=== PATIENT | male | born 1955 | race Caucasian/White ===

== ENCOUNTER 2017-06-03 19:34 | Inpatient (IN) | payer OTHER ==
[~2017-06-03] VITALS: Ht 172.7 cm; Wt 97.0 kg
--- NOTE | 2017-06-03 19:54 | PD ---
HPI Chief Complaint: altered mental status Time Seen by Provider: 19:49 Travel History International Travel<30 days: No Contact w/Intl Traveler<30days: No Traveled to known affect area: No History of Present Illness HPI 61-year-old male with history of COPD, hypertension, hyperlipidemia, schizoaffective disorder, sent in by his SNF for evaluation of altered mental status. Apparently the patient has had change in his mental status since yesterday which appears to be worsening. The patient is drowsy yet easily arousable, oriented to person only. He denies any physical complaints. Says no to chest pain, head pain, abdominal pain, dyspnea. He is otherwise a poor historian. PFSH Past Medical History Arthritis: Yes Asthma: No Autoimmune Disease: No Blood Disorders: No Bipolar Disorder: Yes Anxiety: Yes Depression: Yes Heart Rhythm Problems: No Cancer: No Cardiovascular Problems: Yes High Cholesterol: Yes Chemotherapy: No Chest Pain: No Congestive Heart Failure: No Cirrhosis: Yes COPD: Yes Diabetes: No Diminished Hearing: No Endocrine: No Gastrointestinal Disorders: Yes GERD: Yes Genitourinary: No Headaches: No Hepatitis: Yes (HEP C) Hiatal Hernia: No Hypertension: Yes Immune Disorder: No Implanted Vascular Access Dvce: Yes Kidney Stones: No Musculoskeletal: Yes Neurologic: Yes Psychiatric: Yes Reproductive: No Respiratory: Yes Integumentary: Yes (SCABIES hx) Immunizations Current: Yes Migraines: No Pneumonia: Yes Radiation Therapy: No Renal Failure: Yes Seizures: Yes Sickle Cell Disease: No Sleep Apnea: No Thyroid Disease: No Ulcer: Yes Past Surgical History Abdominal Surgery: Yes AICD: No Cardiac Surgery: No Ear Surgery: No Endocrine Surgery: No Eye Surgery: No Genitourinary Surgery: No Gynecologic Surgery: No Insulin Pump: No Joint Replacement: Yes (left hip) Neurologic Surgery: No Oral Surgery: No Pacemaker: No Thoracic Surgery: Yes (PT STATED HE HAD HIS PARTIAL LUNG REMOVED ON LEFT) Other Surgery: Yes (FEEDING TUBE REMOVED) Social History Alcohol Use: Yes (12 [employer] DAILY) Tobacco Use: Yes (1PPD) Substance Use: Yes Allergies-Medications (Allergen,Severity, Reaction): Coded Allergies: hydrochlorothiazide (Unverified Allergy, Intermediate, EFFECTS HIS SODIUM LEVEL, 02/12/17) PT STATES HE IS NOT ALLERGIC codeine (Unverified Adverse Reaction, Severe, 02/12/17) PT STATES HE IS NOT ALLERGIC *MDRO Multi-Drug Resistant Organism (Verified Adverse Reaction, Unknown, ) MRSA (sputum) - 2012 & 2013 ESBL (sputum) - 2013 Carbapenem resistant Pseudomonas aeruginosa (sputum) - 2013 Reported Meds & Prescriptions Reported Meds & Active Scripts Active No Active Prescriptions or Reported Medications Review of Systems Except as stated in HPI: all other systems reviewed are Neg Physical Exam Narrative GENERAL: Well-developed, well-nourished, drowsy yet easily arousable to voice. SKIN: Focused skin assessment warm/dry. No rash. HEAD: Atraumatic. Normocephalic. EYES: Pupils equal, round, 3 mm, reactive to light. No scleral icterus. No injection or drainage. ENT: No nasal bleeding or discharge. Mucous membranes pink and dry. NECK: Trachea midline. No JVD. No nuchal rigidity. CARDIOVASCULAR: Regular rate and rhythm. No murmur appreciated. RESPIRATORY: No accessory muscle use. Coarse breath sounds bilaterally. Breath sounds equal bilaterally. GASTROINTESTINAL: Abdomen soft, non-tender, nondistended. MUSCULOSKELETAL: No obvious deformities. No clubbing. No cyanosis. No edema. NEUROLOGICAL: Drowsy yet easily arousable. No obvious cranial nerve deficits. Motor grossly within normal limits. Slightly slurred speech. No focal deficits. PSYCHIATRIC: Appropriate mood and affect; insight and judgment normal. Data Data Last Documented VS Vital Signs Date Time Temp Pulse Resp B/P (MAP) Pulse Ox O2 Delivery O2 Flow Rate FiO2 06/03/17 21:15 82 12 123/71 (88) 95 Nasal Cannula 3.00 06/03/17 20:12 97.0 Orders Orders Electrocardiogram (06/03/17 19:49) Ammonia (06/03/17 19:49) Complete Blood Count With Diff (06/03/17 19:49) Comprehensive Metabolic Panel (06/03/17 19:49) Creatine Kinase (Cpk) (06/03/17 19:49) Prothrombin Time / Inr (Pt) (06/03/17 19:49) Act Partial Throm Time (Ptt) (06/03/17 19:49) Troponin I (06/03/17 19:49) Thyroid Stimulating Hormone (06/03/17 19:49) Urinalysis - C+S If Indicated (06/03/17 19:49) Arterial Blood Gas (Abg) (06/03/17 19:49) Chest, Single Ap (06/03/17 19:49) Ct Brain W/O Iv Contrast(Rout) (06/03/17 19:49) Blood Glucose (06/03/17 19:49) Ecg Monitoring (06/03/17 19:49) Iv Access Insert/Monitor (06/03/17 19:49) Oximetry (06/03/17 19:49) Sodium Chloride 0.9% Flush (Ns Flush) (06/03/17 20:00) Alcohol (Ethanol) (06/03/17 19:49) Tylenol (Acetaminophen) (06/03/17 19:49) Salicylates (Aspirin) (06/03/17 19:49) Influenzae A/B Antigen (06/03/17 19:49) Oxygen Administration (06/03/17 19:49) Sodium Chloride 0.9% Flush (Ns Flush) (06/03/17 20:00) Methylprednisolone So Succ Inj (Solumedr (06/03/17 20:00) Albuterol-Ipratropium Neb (Duoneb Neb) (06/03/17 20:00) Insert Temp Sensing Donahue Cath (06/03/17 19:49) B-Type Natriuretic Peptide (06/03/17 19:49) Sodium Chlor 0.9% 1000 Ml Inj (Ns 1000 M (06/03/17 20:30) Blood Culture (06/03/17 21:14) Ceftriaxone Inj (Rocephin Inj) (06/03/17 21:15) Azithromycin Inj (Zithromax Inj) (06/03/17 21:15) CKMB (06/03/17 20:05) CKMB% (06/03/17 20:05) Sodium Chlor 0.9% 1000 Ml Inj (Ns 1000 M (06/03/17 21:30) Labs Laboratory Tests Test 06/03/17 20:05 White Blood Count 8.1 TH/MM3 Red Blood Count 4.43 MIL/MM3 Hemoglobin 13.4 GM/DL Hematocrit 40.4 % Mean Corpuscular Volume 91.1 FL Mean Corpuscular Hemoglobin 30.3 PG Mean Corpuscular Hemoglobin Concent 33.3 % Red Cell Distribution Width 15.0 % Platelet Count 201 TH/MM3 Mean Platelet Volume 8.1 FL Neutrophils (%) (Auto) 69.5 % Lymphocytes (%) (Auto) 17.8 % Monocytes (%) (Auto) 12.1 % Eosinophils (%) (Auto) 0.2 % Basophils (%) (Auto) 0.4 % Neutrophils # (Auto) 5.6 TH/MM3 Lymphocytes # (Auto) 1.4 TH/MM3 Monocytes # (Auto) 1.0 TH/MM3 Eosinophils # (Auto) 0.0 TH/MM3 Basophils # (Auto) 0.0 TH/MM3 CBC Comment DIFF FINAL Differential Comment Prothrombin Time 10.2 SEC Prothromb Time International Ratio 1.0 RATIO Activated Partial Thromboplast Time 30.4 SEC Urine Color YELLOW Urine Turbidity CLEAR Urine pH 5.5 Urine Specific [place] 1.024 Urine Protein 100 mg/dL Urine Glucose (UA) NEG mg/dL Urine Ketones NEG mg/dL Urine Occult Blood MOD Urine Nitrite NEG Urine Bilirubin NEG Urine Urobilinogen LESS THAN 2.0 MG/DL Urine Leukocyte Esterase NEG Urine RBC 1 /hpf Urine WBC 1 /hpf Urine Amorphous Sediment RARE Urine Mucus FEW /lpf Microscopic Urinalysis Comment CATH-CULT NOT IND Blood Gas Puncture Site RT RADIAL Blood Gas Patient Temperature 37.0 Blood Gas HCO3 21 mmol/L Blood Gas Base Excess -4.6 mmol/L Blood Gas Oxygen Saturation 95 % Arterial Blood pH 7.28 Arterial Blood Partial Pressure CO2 46 mmHg Arterial Blood Partial Pressure O2 99 mmHG Arterial Blood Oxygen Content 17.7 Vol % Arterial Blood Carboxyhemoglobin 0.8 % Arterial Blood Methemoglobin 0.7 % Blood Gas Hemoglobin 13.1 G/DL Oxygen Delivery Device NASAL CANNULA Blood Gas Liter Flow 2 L/M Blood Urea Nitrogen 50 MG/DL Creatinine 2.77 MG/DL Random Glucose 98 MG/DL Total Protein 6.7 GM/DL Albumin 2.9 GM/DL Calcium Level 7.3 MG/DL Alkaline Phosphatase 93 U/L Aspartate Amino Transf (AST/SGOT) 70 U/L Alanine Aminotransferase (ALT/SGPT) 23 U/L Total Bilirubin 0.3 MG/DL Sodium Level 137 MEQ/L Potassium Level 4.3 MEQ/L Chloride Level 106 MEQ/L Carbon Dioxide Level 22.7 MEQ/L Anion Gap 8 MEQ/L Estimat Glomerular Filtration Rate 24 ML/MIN Protein Corrected Calcium 7.5 MG/DL Ammonia 33 MCMOL/L Total Creatine Kinase 1288 U/L Troponin I LESS THAN 0.02 NG/ML Thyroid Stimulating Hormone 3rd Gen 2.220 uIU/ML Salicylates Level 2.6 MG/DL Acetaminophen Level LESS THAN 2.0 MCG/ML Ethyl Alcohol Level LESS THAN 3 MG/DL MDM Medical Decision Making Medical Screen Exam Complete: Yes Emergency Medical Condition: Yes Medical Record Reviewed: Yes Interpretation(s) EKG: Sinus, rate 77, normal axis, normal intervals, nonspecific T-wave abnormality, no ST segment elevations Differential Diagnosis Intracranial abnormality, metabolic abnormality, sepsis, pneumonia, UTI, hypercarbia Narrative Course Initial vital signs show heart rate 69, blood pressure 112/78, pulse ox 90% on room air, Court temp of 97F. CBC: WBC 8.1, hemoglobin 13.4, hematocrit 40.4, platelets 201. CMP is remarkable for BUN 50, creatinine 2.77, GFR 24 which is significantly worse than his baseline, protein cracked a calcium of 75. Total CK is 1288. Ammonia level is 33. UA shows moderate occult blood, not suggestive of UTI. Tylenol, alcohol, and salicylate levels are negative. Chest x-ray: CONCLUSION: Scattered bibasilar patchiness consistent with possible pneumonia. Clinical correlation is recommended. CT head: CONCLUSION: 1. No acute infarct, acute hemorrhage, mass effect or extra-axial fluid collections. 2. Scattered old lacunar infarcts within the bilateral basal ganglia. 3. Mild periventricular and subcortical white matter small vessel ischemic changes bilaterally. 4. Old right posterior parietal infarct. Donahue catheter was placed with 500 cc of dark brown urine. Patient was given 3 DuoNeb treatments and IV Solu-Medrol for history of COPD with hypoxia and diffuse coarse breath sounds. He was also given a dose of IV Rocephin and IV azithromycin for chest x-ray findings. Patient's mental status has improved while in the emergency department. He will be admitted for further treatment and evaluation of acute renal insufficiency, altered mental status, pneumonia. Case discussed with hospitalist Dr. Chery who will admit the patient to her service. Diagnosis Primary Impression: Acute renal insufficiency Additional Impressions: Altered mental status Qualified Codes: R41.0 - Disorientation, unspecified Pneumonia Qualified Codes: J18.9 - Pneumonia, unspecified organism Hypoxia Rhabdomyolysis Qualified Codes: M62.82 - Rhabdomyolysis Admitting Information Admitting Physician Requests: Admit Scripts No Active Prescriptions or Reported Meds Joseph Zamudio MD Jun 03, 2017:54
[2017-06-03] MEDS ORDERED: SODIUM CHLORIDE 0.9% FLUSH 10 ML FLUSH IV FLUSH PRN ×2 (20:00→21:45)
[2017-06-03] MEDS ORDERED: methylPREDNISolone SOD SUCC 125 MG/2 ML VIAL IV PUSH ONE ×2 (20:00→22:45)
[2017-06-03] MEDS ORDERED: SODIUM CHLORIDE 0.9% FLUSH 10 ML FLUSH IVF PRN (20:00)
[2017-06-03] MEDS: RESP: ALBUTEROL 2.5 MG/IPRATROPIUM 0.5 MG NEB (SCH) INH (20:06)
[2017-06-03 20:12] VITALS: BP 112/78; PULSE 69; RESP 12; TEMP 97; O2SAT 90
[2017-06-03] MEDS ORDERED: SODIUM CHLOR 0.9% 1000 ML INJ 1,000 ML IV ONE ×2 (20:30→21:30)
[2017-06-03 20:41] LABS: AUTOMATED NEUTROPHIL # 5.6 TH/MM3 (1.8-7.7); BASOPHIL % 0.4 % (0.0-2.0); EOSINOPHIL % 0.2 % (0.0-4.0); HEMATOCRIT 40.4 % (39.0-51.0); HEMOGLOBIN 13.4 GM/DL (13.0-17.0); LYMPH % 17.8 % (9.0-44.0); LYMPHOCYTE # 1.4 TH/MM3 (1.0-4.8); MEAN CELL VOLUME 91.1 FL (80.0-100.0); MEAN CORPUSCULAR HEMOGLOBIN 30.3 PG (27.0-34.0); MEAN CORPUSCULAR HGB CONC 33.3 % (32.0-36.0); MEAN PLATELET VOLUME 8.1 FL (7.0-11.0); MONO % 12.1 % (0.0-8.0); NEUT % 69.5 % (16.0-70.0); PLATELET COUNT 201 TH/MM3 (150-450); RED BLOOD COUNT 4.43 MIL/MM3 (4.50-5.90); WHITE BLOOD COUNT 8.1 TH/MM3 (4.0-11.0)
--- NOTE | 2017-06-03 20:46 | RADRPT ---
EXAM DATE/TIME: 06/03/2017 20:31 [facility] COMPARISON: CT BRAIN W/O CONTRAST, August 04, 2015, 14:53. INDICATIONS : Altered mental status. RADIATION DOSE: 47.25 CTDIvol (mGy) MEDICAL HISTORY : Stroke. Seizures. Hypertension. SURGICAL HISTORY : None. ENCOUNTER: Initial ACUITY: 1 day PAIN SCALE: 0/10 LOCATION: Bilateral head TECHNIQUE: Multiple contiguous axial images were obtained of the head. Using automated exposure control and adj ustment of the mA and/or kV according to patient size, radiation dose was kept as low as reasonably a chievable to obtain optimal diagnostic quality images. DICOM format image data is available electro nically for review and comparison. FINDINGS: Scattered old lacunar infarcts are noted within the bilateral basal ganglia. Mild periventricular and subcortical white matter small vessel ischemic changes are noted bilaterally. The ventricles, sulci and cisterns are stable. Old right posterior parietal infarct is noted. There is no acute infarct, ac [place] hemorrhage, mass effect or extra-axial fluid collections. CONCLUSION: 1. No acute infarct, acute hemorrhage, mass effect or extra-axial fluid collections. 2. Scattered old lacunar infarcts within the bilateral basal ganglia. 3. Mild periventricular and subcortical white matter small vessel ischemic changes bilaterally. 4. Old right posterior parietal infarct. Mckay Stnoe MD on June 03, 2017 at 20:41 Board Certified Radiologist. This report was verified electronically.
[2017-06-03 20:47] LABS: AMORPHOUS SEDIMENT, URINE RARE; BILIRUBIN, URINE NEG (NEG); BLOOD, URINE MOD (NEG); GLUCOSE,URINE NEG (NEG); KETONE, URINE NEG (NEG); MUCUS URINE FEW /lpf (OCC); NITRITE,URINE NEG (NEG); PH, URINE 5.5 (5.0-8.5); URINE COLOR YELLOW (YELLW/STRAW); URINE LEUKOCYTE ESTERASE NEG (NEG)
[2017-06-03 20:51] LABS: PROTHROMBIN TIME - PATIENT 10.2 SEC (9.8-11.6)
[2017-06-03 21:12] LABS: ALBUMIN 2.9 GM/DL (3.4-5.0); ALKALINE PHOSPHATASE 93 U/L (45-117); ALT (GPT) 23 U/L (12-78); AST (GOT) 70 U/L (15-37); BICARBONATE 22.7 MEQ/L (21.0-32.0); BLOOD UREA NITROGEN 50 MG/DL (7-18); CALCIUM 7.3 MG/DL (8.5-10.1); CALCIUM-PROTEIN CORRECTED 7.5 MG/DL (8.5-10.1); CHLORIDE 106 MEQ/L (98-107); CREATININE 2.77 MG/DL (0.60-1.30); GLOMERULAR FILTRATION RATE 24 ML/MIN (>89); GLUCOSE,RANDOM 98 MG/DL (74-106); SODIUM (NA) 137 MEQ/L (136-145); TOTAL BILIRUBIN ADULT 0.3 MG/DL (0.2-1.0); TOTAL PROTEIN 6.7 GM/DL (6.4-8.2); TROPONIN I LESS THAN 0.02 NG/ML (0.02-0.05)
--- NOTE | 2017-06-03 21:13 | RADRPT ---
EXAM DATE/TIME: 06/03/2017 20:21 [facility] COMPARISON: CHEST SINGLE AP, August 04, 2015, 15:11. INDICATIONS : Syncope. MEDICAL HISTORY : Stroke. Seizures. Hypertension. SURGICAL HISTORY : None. ENCOUNTER: Initial ACUITY: 1 day PAIN SCORE: Non-responsive. LOCATION: Bilateral chest FINDINGS: Scattered bibasilar patchiness is noted consistent with possible pneumonia. Clinical correlation is r ecommended. The heart is stable. CONCLUSION: Scattered bibasilar patchiness consistent with possible pneumonia. Clinical correlation is recommende d. Mckay Stone MD on June 03, 2017 at 21:10 Board Certified Radiologist. This report was verified electronically.
[2017-06-03 21:15] VITALS: BP 123/71; PULSE 82; RESP 12; O2SAT 95
[2017-06-03] MEDS ORDERED: AZITHROMYCIN INJ 500 MG in SODIUM CHLOR 0.9% 250 ML INJ 250 ML IV ONE (21:15)
[2017-06-03] MEDS ORDERED: cefTRIAXone INJ 1,000 MG in SODIUM CHLORIDE 0.9% INJ 100 ML IV ONE (21:15)
[2017-06-03 21:18] LABS: ACETAMINOPHEN LESS THAN 2.0 MCG/ML (10.0-30.0)
[2017-06-03] MEDS ORDERED: RISP1TAB2 PO (21:43)
[2017-06-03] MEDS ORDERED: DONE5TAB7 PO (21:43)
[2017-06-03] MEDS ORDERED: LISI-515 PO (21:43)
[2017-06-03] MEDS ORDERED: MELO15TA20 PO (21:43)
[2017-06-03] MEDS ORDERED: TRAZ1TAB14 PO (21:43)
[2017-06-03] MEDS ORDERED: ALBUAER3 INH (21:43)
[2017-06-03] MEDS ORDERED: TAMS0.4C4 PO (21:43)
[2017-06-03] MEDS ORDERED: GABA300C5 PO (21:43)
[2017-06-03] MEDS ORDERED: BENZ0.5T PO (21:43)
[2017-06-03] MEDS ORDERED: VENL150T PO (21:43)
[2017-06-03] MEDS ORDERED: ATOR40TA16 PO (21:43)
[2017-06-03] MEDS ORDERED: TRAM50TA PO (21:43)
[2017-06-03] MEDS ORDERED: NALOXONE HCL 0.4 MG/ML AMP IV PUSH PRN (21:45)
[2017-06-03] MEDS: SODIUM CHLOR 0.9% 1000 ML INJ 1,000 ML IV SCH (21:55)
[2017-06-03 22:40] VITALS: O2SAT 99
--- NOTE | 2017-06-03 22:50 | HHI.HP ---
[facility] Service [facility] Hospitalists . Primary Care Physician Unknown . Admission Diagnosis AMS, ROSENDO, Pneumonia, Rhabdomyolysis, Hypoxia . Diagnoses: (1) Acute hypercapnic respiratory failure (2) Pneumonia (3) Altered mental status (4) Rhabdomyolysis Chief Complaint: altered mental status Travel History International Travel<30 Days: No Contact w/Intl Traveler <30 Da: No Traveled to Known Affected Are: No History of Present Illness Mr. Reilly is a 61-year-old male with a history of COPD, hypertension, hyperlipidemia, CVA, schizoaffective disorder, bipolar disorder, GERD, renal failure, and arthritis who presents to the emergency room on 06/03/2017 from a nursing home facility for evaluation of altered mental status. Upon review of the medical records from the nursing home facility, it is noted he had a right lower lobe pneumonia diagnosed mid May. Head CT showed no acute infarct, acute hemorrhage, mass effect, or extra-axial fluid collection but scattered old lacunar infarcts within the bilateral basal ganglia. Mild periventricular and subcortical white matter small vessel ischemic changes bilaterally. Chest x-ray shows scattered bibasilar patchiness consistent with possible pneumonia. Patient is seen in the emergency department. He is in moderate respiratory distress with tachypnea and utilization of accessory abdominal muscles to breathe. His lung sounds are bilaterally congested and he is confused and a poor historian. His speech is slightly slurred but this is not a new finding. He tells me he does not know why he is here in the hospital. He tells me that he feels fine and has not been sick recently. He is noted to be on 5 L nasal cannula with oxygen saturation of 94% while on at the bedside. ABGs are reviewed and show pH 7.28, and PCO2 of 46. These were done at 2004 while the patient is on 2 L nasal cannula. Discussed with Dr. Mckeon. Will admit to ICU for close monitoring and supervision. Review of Systems ROS Limitations: Altered Mental Status, Poor Historian Past Family Social History Past Medical History Patient is a poor historian with altered mental status and the following is obtained from the medical record: COPD Hypertension Hyperlipidemia CVA Schizoaffective disorder Bipolar disorder GERD Acute renal failure Arthritis Alcohol withdrawal seizures . Past Surgical History Patient is a poor historian with altered mental status and the following is obtained from the medical record: Left partial pneumonectomy Left hip surgery Reported Medications Reported Meds & Active Scripts Active Reported Proair Hfa 8.5 GM Inh (Albuterol Sulfate) 90 Mcg/Act Aer 1 Puff INH Q4H PRN 108 mcg/actuation Venlafaxine ER 24 HR (Venlafaxine HCl) 150 Mg Tab 150 Mg PO DAILY Trazodone (Trazodone HCl) 150 Mg Tablet 150 Mg PO HS Tramadol (Tramadol HCl) 50 Mg Tab 50 Mg PO Q6H PRN Tamsulosin (Tamsulosin HCl) 0.4 Mg Cap 0.4 Mg PO HS Risperidone 1 Mg Tab 1 Mg PO HS Meloxicam 15 Mg Tab 15 Mg PO DAILY Lisinopril 20 Mg Tab 20 Mg PO DAILY Gabapentin 300 Mg Cap 300 Mg PO TID Donepezil 5 Mg Tab 5 Mg PO HS Benztropine (Benztropine Mesylate) 0.5 Mg Tab 1 Mg PO HS Atorvastatin (Atorvastatin Calcium) 40 Mg Tab 40 Mg PO HS . Allergies: Coded Allergies: hydrochlorothiazide (Unverified Allergy, Intermediate, EFFECTS HIS SODIUM LEVEL, 02/12/17) PT STATES HE IS NOT ALLERGIC codeine (Unverified Adverse Reaction, Severe, 02/12/17) PT STATES HE IS NOT ALLERGIC Active Ordered Medications Current Medications Sodium Chloride (NS Flush) 2 ml UNSCH PRN IV FLUSH FLUSH AFTER USING IV ACCESS ; Start 06/03/17 at 20:00; Stop 06/03/17 at 21:55; Status DC Sodium Chloride (NS Flush) 2 ml UNSCH PRN IVF FLUSH AFTER USING IV ACCESS; Start 06/03/17 at 20:00; Stop 06/03/17 at 21:55; Status DC Methylprednisolone Sodium Succinate (SoluMEDROL INJ) 125 mg ONCE ONCE IV PUSH Last administered on 06/03/17 20:21; Start 06/03/17 at 20:00; Stop 06/03/17 at 20:01; Status DC Albuterol/ Ipratropium (Duoneb Neb) 1 ampule Q15M INH Last administered on 06/03 20:06; Start 06/03/17 at 20:00; Stop 06/03/17 at 20:31; Status DC Sodium Chloride 1,000 ml @ 999 mls/hr BOLUS ONCE IV Last administered on 06/03 20:21; Start 06/03/17 at 20:30; Stop 06/03/17 at 21:30; Status DC Ceftriaxone Sodium 1000 mg/ Sodium Chloride 100 ml @ 200 mls/hr ONCE ONCE IV Last administered on 06/03/17 21:35; Start 06/03/17 at 21:15; Stop 06/03/17 at 21:45; Status DC Azithromycin 500 mg/Sodium Chloride 250 ml @ 250 mls/hr ONCE ONCE IV Last administered on 06/03/17 21:35; Start 06/03/17 at 21:15; Stop 06/03/17 at 22:14 ; Status DC Sodium Chloride 1,000 ml @ 999 mls/hr BOLUS ONCE IV Last administered on 06/03 21:36; Start 06/03/17 at 21:30; Stop 06/03/17 at 22:30; Status DC Sodium Chloride 1,000 ml @ 100 mls/hr Q10H IV Last administered on 06/03/17 21:55; Start 06/03/17 at 21:39 Sodium Chloride (NS Flush) 2 ml UNSCH PRN IV FLUSH FLUSH AFTER USING IV ACCESS ; Start 06/03/17 at 21:45 Sodium Chloride (NS Flush) 2 ml BID IV FLUSH ; Start 06/04/17 at 09:00 Naloxone HCl (Narcan Inj) 0.4 mg UNSCH PRN IV PUSH SEE LABEL COMMENTS; Start 06/03/17 at 21:45 Methylprednisolone Sodium Succinate (SoluMEDROL INJ) 125 mg ONCE ONCE IV PUSH ; Start 06/03/17 at 22:45; Stop 06/03/17 at 22:48; Status DC Methylprednisolone Sodium Succinate (SoluMEDROL INJ) 40 mg Q8HR IV PUSH ; Start 06/04/17 at 06:00 Famotidine (Pepcid) 10 mg Q12HR PO ; Start 06/04/17 at 09:00 Levofloxacin/ Dextrose 150 ml @ 100 mls/hr Q24H IV ; Start 06/03/17 at 22:45; Status UNV Albuterol/ Ipratropium (Duoneb Neb) 1 ampule Q6HR NEB NEB ; Start 06/04/17 at 04:00 Albuterol/ Ipratropium (Duoneb Neb) 1 ampule Q2HR NEB PRN NEB wheezing; Start 06/03/17 at 22:45 Atorvastatin Calcium (Lipitor) 40 mg HS PO ; Start 06/04/17 at 21:00; Status UNV Benztropine Mesylate (Cogentin) 1 mg HS PO ; Start 06/04/17 at 21:00; Status UNV Donepezil HCl (Aricept) 5 mg HS PO ; Start 06/04/17 at 21:00; Status UNV Risperidone (risperDAL) 1 mg HS PO ; Start 06/04/17 at 21:00; Status UNV Tamsulosin HCl (Flomax) 0.4 mg HS PO ; Start 06/04/17 at 21:00; Status UNV Venlafaxine HCl (Effexor Xr) 150 mg DAILY PO ; Start 06/04/17 at 09:00; Status UNV . Family History Patient is a poor historian with altered mental status and the following is unable to be obtained . Social History Patient is a poor historian with altered mental status and the following is obtained from the medical record: Tobacco: History of tobacco abuse for many years Alcohol: History of alcohol abuse . Physical Exam Vital Signs Vital Signs Date Time Temp Pulse Resp B/P (MAP) Pulse Ox O2 Delivery O2 Flow Rate FiO2 06/03/17 21:15 82 12 123/71 (88) 95 Nasal Cannula 3.00 06/03/17 20:15 98 Aerosol Mask 06/03/17 20:15 75 12 96 Nasal Cannula 3.00 06/03/17 20:12 97.0 69 12 112/78 (89) 90 Physical Exam GENERAL: This is a chronically ill-appearing male, in moderate respiratory distress. SKIN: Cool and dry, pati complexion. HEAD: Atraumatic. Normocephalic. EYES: No scleral icterus. No injection or drainage. ENT: Nose without bleeding, purulent drainage. Uvula midline. Airway patent. NECK: Trachea midline. No JVD. CARDIOVASCULAR: Regular rate and rhythm without murmurs, gallops, or rubs. RESPIRATORY: Tachypneic, utilization of abdominal muscles to breathe, diffuse moist rhonchi throughout lung martinez. GASTROINTESTINAL: Abdomen soft, non-tender, nondistended. No guarding. MUSCULOSKELETAL: Extremities without clubbing, cyanosis, or edema. NEUROLOGICAL: Awake but drowsy. Equal strength, follows commands, no tongue deviation. Somewhat slurred speech. . Laboratory Laboratory Tests Test 06/03/17 20:05 White Blood Count 8.1 Red Blood Count 4.43 Hemoglobin 13.4 Hematocrit 40.4 Mean Corpuscular Volume 91.1 Mean Corpuscular Hemoglobin 30.3 Mean Corpuscular Hemoglobin Concent 33.3 Red Cell Distribution Width 15.0 Platelet Count 201 Mean Platelet Volume 8.1 Neutrophils (%) (Auto) 69.5 Lymphocytes (%) (Auto) 17.8 Monocytes (%) (Auto) 12.1 Eosinophils (%) (Auto) 0.2 Basophils (%) (Auto) 0.4 Neutrophils # (Auto) 5.6 Lymphocytes # (Auto) 1.4 Monocytes # (Auto) 1.0 Eosinophils # (Auto) 0.0 Basophils # (Auto) 0.0 CBC Comment DIFF FINAL Differential Comment Prothrombin Time 10.2 Prothromb Time International Ratio 1.0 Activated Partial Thromboplast Time 30.4 Urine Color YELLOW Urine Turbidity CLEAR Urine pH 5.5 Urine Specific Peetz 1.024 Urine Protein 100 Urine Glucose (UA) NEG Urine Ketones NEG Urine Occult Blood MOD Urine Nitrite NEG Urine Bilirubin NEG Urine Urobilinogen LESS THAN 2.0 Urine Leukocyte Esterase NEG Urine RBC 1 Urine WBC 1 Urine Amorphous Sediment RARE Urine Mucus FEW Microscopic Urinalysis Comment CATH-CULT NOT IND Blood Gas Puncture Site RT RADIAL Blood Gas Patient Temperature 37.0 Blood Gas HCO3 21 Blood Gas Base Excess -4.6 Blood Gas Oxygen Saturation 95 Arterial Blood pH 7.28 Arterial Blood Partial Pressure CO2 46 Arterial Blood Partial Pressure O2 99 Arterial Blood Oxygen Content 17.7 Arterial Blood Carboxyhemoglobin 0.8 Arterial Blood Methemoglobin 0.7 Blood Gas Hemoglobin 13.1 Oxygen Delivery Device NASAL CANNULA Blood Gas Liter Flow 2 Blood Urea Nitrogen 50 Creatinine 2.77 Random Glucose 98 Total Protein 6.7 Albumin 2.9 Calcium Level 7.3 Alkaline Phosphatase 93 Aspartate Amino Transf (AST/SGOT) 70 Alanine Aminotransferase (ALT/SGPT) 23 Total Bilirubin 0.3 Sodium Level 137 Potassium Level 4.3 Chloride Level 106 Carbon Dioxide Level 22.7 Anion Gap 8 Estimat Glomerular Filtration Rate 24 Protein Corrected Calcium 7.5 Ammonia 33 Total Creatine Kinase 1288 Creatine Kinase MB 23.7 Creatine Kinase MB % 1.8 Troponin I LESS THAN 0.02 B-Type Natriuretic Peptide 15 Thyroid Stimulating Hormone 3rd Gen 2.220 Salicylates Level 2.6 Acetaminophen Level LESS THAN 2.0 Ethyl Alcohol Level LESS THAN 3 Date/Time Source Procedure Growth Status 06/03/17 21:18 Blood Peripheral Aerobic Blood Culture Pending Received 06/03/17 21:18 Blood Peripheral Anaerobic Blood Culture Pending Received 06/03/17 20:05 Nasal Washing Influenza Types A,B Antigen (KIEL) - Final NEGATIVE FOR FLU A AND B ANTIGEN.... Complete Result Diagram: 06/03/17200406/03/172004 Imaging Last Impressions Head CT 06/03/171948 Signed Impressions: Service Date/Time: Saturday, June 03, 2017 20:31 - CONCLUSION: 1. No acute infarct, acute hemorrhage, mass effect or extra-axial fluid collections. 2. Scattered old lacunar infarcts within the bilateral basal ganglia. 3. Mild periventricular and subcortical white matter small vessel ischemic changes bilaterally. 4. Old right posterior parietal infarct. Mckay Stone MD Chest X-Ray 06/03/171948 Signed Impressions: Service Date/Time: Saturday, June 03, 2017 20:21 - CONCLUSION: Scattered bibasilar patchiness consistent with possible pneumonia. Clinical correlation is recommended. Mckay Stone MD . Caprini VTE Risk Assessment Caprini VTE Risk Assessment: Mod/High Risk (score >= 2) Caprini Risk Assessment Model Point Value = 1 Point Value = 2 Point Value = 3 Point Value = 5 Age 41-60 Minor surgery BMI > 25 kg/m2 Swollen legs Varicose veins or History of unexplained or recurrent spontaneous Oral contraceptives or hormone replacement Sepsis (< 1 month) Serious lung disease, including pneumonia (< 1 month) Abnormal pulmonary function Acute myocardial infarction Congestive heart failure (< 1 month) History of inflammatory bowel disease Medical patient at bed rest Age 61-74 Arthroscopic surgery Major open surgery (> 45 min) Laparoscopic surgery (> 45 min) Malignancy Confined to bed (> 72 hours) Immobilizing plaster cast Central venous access Age >= 75 History of VTE Family history of VTE Factor V Leiden Prothrombin [id number] Lupus anticoagulant Anticardiolipin antibodies Elevated serum homocysteine Heparin-induced thrombocytopenia Other congenital or acquired thrombophilia Stroke (< 1 month) Elective arthroplasty Hip, pelvis, or leg fracture Acute spinal cord injury (< 1 month) Prophylaxis Regimen Total Risk Factor Score Risk Level Prophylaxis Regimen 0-1 Low Early ambulation 2 Moderate Order ONE of the following: *Sequential Compression Device (SCD) *Heparin 5000 units SQ BID 3-4 Higher Order ONE of the following medications: *Heparin 5000 units SQ TID *Enoxaparin/Lovenox 40 mg SQ daily (WT < 150 kg, CrCl > 30 mL/min) *Enoxaparin/Lovenox 30 mg SQ daily (WT < 150 kg, CrCl > 10-29 mL/min) *Enoxaparin/Lovenox 30 mg SQ BID (WT < 150 kg, CrCl > 30 mL/min) AND/OR *Sequential Compression Device (SCD) 5 or more Highest Order ONE of the following medications: *Heparin 5000 units SQ TID (Preferred with Epidurals) *Enoxaparin/Lovenox 40 mg SQ daily (WT < 150 kg, CrCl > 30 mL/min) *Enoxaparin/Lovenox 30 mg SQ daily (WT < 150 kg, CrCl > 10-29 mL/min) *Enoxaparin/Lovenox 30 mg SQ BID (WT < 150 kg, CrCl > 30 mL/min) AND *Sequential Compression Device (SCD) Assessment and Plan Problem List: (1) Pneumonia ICD Code: J18.9 - Pneumonia, unspecified organism Status: Acute (2) Acute hypercapnic respiratory failure ICD Code: J96.02 - Acute respiratory failure with hypercapnia Status: Acute (3) Altered mental status ICD Code: R41.82 - Altered mental status, unspecified Status: Acute (4) Hypoxia ICD Code: R09.02 - Hypoxemia Status: Acute (5) Rhabdomyolysis ICD Code: M62.82 - Rhabdomyolysis Status: Acute (6) Acute renal failure ICD Code: N17.9 - Acute kidney failure, unspecified Assessment and Plan Mr. Reilly is a 61-year-old male with a history of COPD, hypertension, hyperlipidemia, CVA, schizoaffective disorder, bipolar disorder, GERD, renal failure, and arthritis who presents to the emergency room on 06/03/2017 from a nursing home facility for evaluation of altered mental status. Upon review of the medical records from the nursing home facility, it is noted he had a right lower lobe pneumonia diagnosed mid May. Head CT showed no acute infarct, acute hemorrhage, mass effect, or extra-axial fluid collection but scattered old lacunar infarcts within the bilateral basal ganglia. Mild periventricular and subcortical white matter small vessel ischemic changes bilaterally. Chest x-ray shows scattered bibasilar patchiness consistent with possible pneumonia. He is also found to have rhabdomyolysis with acute renal failure. Acute hypercapnic respiratory failure with bilateral pneumonia - Chest x-ray with scattered bibasilar patchiness consistent with pneumonia - image personally reviewed. - ABGs done on admission show pH of 7.28 and PCO2 45.9; BNP 15 - Patient appears in moderate respiratory distress during visit on supplemental oxygen at 5 L via nasal cannula - Start BiPAP 12/11/34 - Levaquin 750 mg IV every 24 hours - Duo nebulizers every 6 hours and every 2 hours as needed for wheezing - Solu-Medrol 125 mg IV push followed by 40 mg IV every 8 hours - Continuous cardiac telemetry to monitor for arrhythmias - We'll repeat ABGs - Admit to ICU for close monitoring as patient is at high risk for clinical deterioration Acute renal failure - BUN 50, creatinine 2.77, EGFR 24 - significantly worse than prior visits - on 12/04/15, the patient's BUN was 22, creatinine 0.74, EGFR was 108 - Patient has received fluid boluses x 2 liters in ED and is currently on normal saline at 100 cc per hour - Home Lisinopril and meloxicam held - Repeat labs in a.m. and follow trends - Avoid nephrotoxins - Consider nephrology consultation if no improvement Rhabdomyolysis - TCK 1288 on admission - IV fluid hydration provided as above - Recheck CK in a.m. and follow results - trend Altered mental status likely multi-factorial secondary to respiratory failure and renal failure - Hold sedating medications for now: Tramadol, gabapentin, trazodone, risperidone - Head CT with no acute infarct, acute hemorrhage, mass effect, or extra-axial fluid collections. Scattered old lacunar infarcts within bilateral basal ganglia. Mild periventricular and subcortical white matter small vessel ischemic changes bilaterally. All the right posterior parietal infarct. - UA not consistent with UTI; ammonia mildly elevated at 33; TSH normal at 2.20 - Negative toxicology as follows: EtOH less than 3, acetaminophen less than 2.0 , salicylates 2.6 DVT prophylaxis - Heparin 5000 subcutaneous every 8 hours Attending Note Patient seen and examined. Note above from mid level reviewed. Agree with assessment. 61 years old halfway patient who was found to be hypoxic with O2 sat of 90 % on room air, acute renal failure, rhabdomyolysis with CPK of 1200s. Patient is not able to give any proper history. He was placed on BiPAP. His BNP is normal. His latest echo in 2012 is reviewed. Preserved systolic function and diastolic function her report. Patient on lung exam shows significant expiratory wheezing but very tight air entry. Further rounds of nebulizer treatments to be given. Steroids 125 mg IV second dose to be given now and to continue at 40 mL IV every 6 hours. GI prophylaxis while on steroids. Patient also received Rocephin and azithromycin in ER for treatment of pneumonia. Will start on levofloxacin renal adjusted dose as patient is a halfway patient. Follow blood culture results. As to his rhabdomyolysis, patient tells me that he did fall down. However he is not able to elaborate further. No significant pain or localization of pain. Continue further IV hydration. Suspect that his renal function will improve with hydration. If not, consider bicarbonate drip/nephrology consult/renal ultrasound. Due to the fact that patient has significant work of breathing, hypoxia, question whether this could be PE in a morbidly obese NH pt. start pt on heparin drip for now imaging studies once pt is hemodynamically stable admit pt to icu for close monitoring Discussed Condition With ER physician and RN . Physician Certification 2 Midnight Certification Type: Admission for Inpatient Services Order for Inpatient Services The services are ordered in accordance with Medicare regulations or non- Medicare payer requirements, as applicable. In the case of services not specified as inpatient-only, they are appropriately provided as inpatient services in accordance with the 2-midnight benchmark. Estimated LOS (days): 5 days is the estimated time the patient will need to remain in the hospital, assuming treatment plan goals are met and no additional complications. Post-Hospital Plan: SNF Problem Qualifiers (1) Pneumonia: Qualified Codes: J18.9 - Pneumonia, unspecified organism (2) Altered mental status: Qualified Codes: R41.0 - Disorientation, unspecified (3) Rhabdomyolysis: Qualified Codes: M62.82 - Rhabdomyolysis (4) Acute renal failure: Qualified Codes: N17.9 - Acute kidney failure, unspecified Soheila Camacho Jun 03, 2017 22:50 Annette Chery MD Jun 03, 2017 23:57
[2017-06-03] MEDS ORDERED: HEPARIN SODIUM - SQ 10,000 UNITS/ML VIAL SQ SCH (23:00)
[2017-06-03] MEDS ORDERED: LEVOFLOXACIN 750 MG PREMIX INJ 150 ML IV SCH (23:00)
[2017-06-03] MEDS ORDERED: HEPARIN-D5W 25,000 U/250 ML 250 ML IV PRN (23:30)
[2017-06-03] MEDS ORDERED: HEPARIN SODIUM - IV 10,000 UNITS/10 ML VIAL IV PUSH ONE (23:30)
[2017-06-03] MEDS: RESP: ALBUTEROL 2.5 MG/IPRATROPIUM 0.5 MG NEB (PRN) NEB (23:42)
[2017-06-03] MEDS ORDERED: CALCIUM GLUCONATE INJ 2 GM in DEXTROSE 5% IN WATER 100ML INJ 100 ML IV ONE ×2 (23:45)
[2017-06-03 23:59] VITALS: BP 140/71; PULSE 91; RESP 25; TEMP 97.2; O2SAT 96
[2017-06-04] VITALS (21 sets, daily range): BP systolic 98–214; BP diastolic 58–142; PULSE 52–125; RESP 16–39; TEMP 97.5–97.9; O2SAT 90–100
[2017-06-04] MEDS: RESP: ALBUTEROL 2.5 MG/IPRATROPIUM 0.5 MG NEB (SCH) NEB ×4 (02:32→21:00)
[2017-06-04] MEDS ORDERED: MISCELLANEOUS NURSING INFORMATION XX SCH (03:45)
[2017-06-04] MEDS ORDERED: CHLORHEXIDINE GLUCONATE 2 % 1 PACK (2 CLOTHS) TOP PRN (03:45)
[2017-06-04] MEDS: methylPREDNISolone SOD SUCC 40 MG/1 ML VIAL IV PUSH SCH ×3 (05:10→22:20)
[2017-06-04] MEDS ORDERED: HEPARIN SODIUM - IV 10,000 UNITS/10 ML VIAL IV PUSH PRN ×2 (05:30)
[2017-06-04] MEDS ORDERED: ENALAPRILAT 2.5 MG/2 ML VIAL IV PUSH PRN (07:00)
[2017-06-04] MEDS ORDERED: methylPREDNISolone SOD SUCC 125 MG/2 ML VIAL IV PUSH ONE (07:00)
[2017-06-04] MEDS: VENLAFAXINE HCL XR 75 MG CAP PO SCH (07:48)
[2017-06-04] MEDS: FAMOTIDINE 20 MG TAB PO SCH ×2 (07:48→22:20)
[2017-06-04] MEDS: SODIUM CHLORIDE 0.9% FLUSH 10 ML FLUSH IV FLUSH SCH ×3 (07:48→22:20)
[2017-06-04] MEDS: SODIUM CHLOR 0.9% 1000 ML INJ 1,000 ML IV SCH ×2 (07:49→17:28)
[2017-06-04 08:42] LABS: AUTOMATED NEUTROPHIL # 6.7 TH/MM3 (1.8-7.7); BASOPHIL % 0.3 % (0.0-2.0); HEMATOCRIT 44.3 % (39.0-51.0); HEMOGLOBIN 14.4 GM/DL (13.0-17.0); LYMPHOCYTE # 0.8 TH/MM3 (1.0-4.8); MEAN CELL VOLUME 90.8 FL (80.0-100.0); MEAN CORPUSCULAR HEMOGLOBIN 29.5 PG (27.0-34.0); MEAN CORPUSCULAR HGB CONC 32.5 % (32.0-36.0); MEAN PLATELET VOLUME 7.8 FL (7.0-11.0); MONO % 1.2 % (0.0-8.0); MONOCYTE # 0.1 TH/MM3 (0-0.9); NEUT % 87.5 % (16.0-70.0); PLATELET COUNT 213 TH/MM3 (150-450); RED BLOOD COUNT 4.88 MIL/MM3 (4.50-5.90); RED CELL DISTRIBUTION WIDTH 14.9 % (11.6-17.2); WHITE BLOOD COUNT 7.6 TH/MM3 (4.0-11.0)
[2017-06-04 09:35] LABS: BICARBONATE 22.3 MEQ/L (21.0-32.0); CALCIUM 8.4 MG/DL (8.5-10.1); CREATININE 1.51 MG/DL (0.60-1.30)
[2017-06-04] MEDS: amLODIPine BESYLATE 5 MG TAB PO SCH (11:56)
[2017-06-04] MEDS ORDERED: cloNIDine HCL 0.1 MG TAB PO PRN (12:00)
--- NOTE | 2017-06-04 13:00 | HHI.PR ---
Subjective Remarks The patient said that he is short of breath. He still smokes up to a pack of cigarettes a day. He says he has no intention of quitting smoking. He says that he generally uses oxygen at night at the half-way. Discussed with nursing at the bedside. Objective Vitals Vital Signs Date Time Temp Pulse Resp B/P (MAP) Pulse Ox O2 Delivery O2 Flow Rate FiO2 06/04/17 12:00 98.8 71 30 214/98 (136) 97 06/04/17 12:00 71 06/04/17 10:00 73 06/04/17 08:28 92 Nasal Cannula 4.00 06/04/17 08:00 83 06/04/17 08:00 100 Bi-Pap 30 06/04/17 08:00 97.5 80 31 184/142 (156) 90 06/04/17 07:22 97 30 06/04/17 06:00 52 06/04/17 04:00 97.9 66 37 199/91 (127) 98 06/04/17 04:00 66 06/04/17 03:35 99 25 06/04/17 03:01 76 06/04/17 02:27 97.8 74 30 186/92 (123) 97 06/04/17 02:10 06/04/17 01:45 98 2.00 06/04/17 01:45 98 Nasal Cannula 2.00 06/04/17 01:24 96 25 06/03/17 23:59 97.2 91 25 140/71 (94) 96 BiPAP 25 06/03/17 22:40 99 25 06/03/17 21:15 82 12 123/71 (88) 95 Nasal Cannula 3.00 06/03/17 21:15 95 Nasal Cannula 3.00 06/03/17 20:15 98 Aerosol Mask 06/03/17 20:15 75 12 96 Nasal Cannula 3.00 06/03/17 20:12 97.0 69 12 112/78 (89) 90 I/O 06/03/17 06/03/17 06/03/17 06/04/17 06/04/17 06/04/17 07:00 15:00 23:00 07:00 15:00 23:00 Intake Total 2350 ml 270 ml 1090 ml Output Total 3025 ml Balance 2350 ml -2755 ml 1090 ml Intake IV Total 2350 ml 270 ml 1090 ml Output Urine Total 3025 ml Stool Total 0 ml # Voids 1 Result Diagram: 06/04/17 0821 06/04/1721 Imaging Last Impressions Head CT 06/03/171948 Signed Impressions: Service Date/Time: Saturday, June 03, 2017 20:31 - CONCLUSION: 1. No acute infarct, acute hemorrhage, mass effect or extra-axial fluid collections. 2. Scattered old lacunar infarcts within the bilateral basal ganglia. 3. Mild periventricular and subcortical white matter small vessel ischemic changes bilaterally. 4. Old right posterior parietal infarct. Mckay Stone MD Chest X-Ray 06/03/171948 Signed Impressions: Service Date/Time: Saturday, June 03, 2017 20:21 - CONCLUSION: Scattered bibasilar patchiness consistent with possible pneumonia. Clinical correlation is recommended. Mckay Stone MD Objective Remarks GENERAL: Resting comfortably in bed. SKIN: Cool and dry, pati complexion. HEAD: Atraumatic. Normocephalic. EYES: No scleral icterus. No injection or drainage. ENT: Nose without bleeding, purulent drainage. Uvula midline. Airway patent. NECK: Trachea midline. No JVD. CARDIOVASCULAR: Regular rate and rhythm without murmurs, gallops, or rubs. RESPIRATORY: Poor air exchange. GASTROINTESTINAL: Abdomen soft, non-tender, nondistended. No guarding. MUSCULOSKELETAL: Extremities without clubbing, cyanosis, or edema. NEUROLOGICAL: Awake and alert. Equal strength, follows commands, no tongue deviation. PSYCH: Calm. Medications and IVs Current Medications Medications (Trade) Dose Ordered Sig/Solange Route Start Time Stop Time Status Last Admin Sodium Chloride 1,000 ml @ 100 mls/hr Q10H IV 06/03/17 21:39 06/04/17 07:49 (NS Flush) 2 ml UNSCH PRN IV FLUSH 06/03/17 21:45 06/04/17 07:49 (NS Flush) 2 ml BID IV FLUSH 06/04/17 09:00 06/04/17 07:48 (Narcan Inj) 0.4 mg UNSCH PRN IV PUSH 06/03/17 21:45 (SoluMEDROL INJ) 40 mg Q8HR IV PUSH 06/04/17 06:00 06/04/17 05:10 (Pepcid) 10 mg Q12HR PO 06/04/17 09:00 06/04/17 07:48 Levofloxacin/ Dextrose 150 ml @ 100 mls/hr Q48H IV 06/03/17 23:00 06/03/17 23:40 (Duoneb Neb) 1 ampule Q6HR NEB NEB 06/04/17 04:00 06/04/17 07:26 (Duoneb Neb) 1 ampule Q2HR NEB PRN NEB 06/03/17 22:45 06/03/17 23:42 (Lipitor) 40 mg HS PO 06/04/17 21:00 (Cogentin) 1 mg HS PO 06/04/17 21:00 (Aricept) 5 mg HS PO 06/04/17 21:00 (risperDAL) 1 mg HS PO 06/04/17 21:00 Future Hold (Flomax) 0.4 mg HS PO 06/04/17 21:00 (Effexor Xr) 150 mg DAILY PO 06/04/17 09:00 06/04/17 07:48 (Heparin Inj) 5,000 units UNSCH PRN IV PUSH 06/04/17 05:30 (Heparin Inj) 2,500 units UNSCH PRN IV PUSH 06/04/17 05:30 Heparin Sodium/ Dextrose 250 ml @ 10 mls/hr TITRATE PRN IV 06/03/17 23:30 06/03/17 23:55 Miscellaneous Information 1 Q361D XX 06/04/17 03:45 (Chlorhexidine 2% Cloth) 3 pack Taper DAILY@04 TOP 06/04/17 04:00 05/31/18 03:59 (Chlorhexidine 2% Cloth) 3 pack UNSCH PRN TOP 06/04/17 03:45 (Vasotec Inj) 2.5 mg Q6H PRN IV PUSH 06/04/17 07:00 06/04/17 07:48 (Norvasc) 5 mg DAILY PO 06/04/17 12:00 06/04/17 11:56 (Catapres) 0.1 mg Q6H PRN PO 06/04/17 12:00 A/P Problem List: (1) Pneumonia ICD Code: J18.9 - Pneumonia, unspecified organism Status: Acute (2) Acute hypercapnic respiratory failure ICD Code: J96.02 - Acute respiratory failure with hypercapnia (3) Altered mental status ICD Code: R41.82 - Altered mental status, unspecified Status: Acute (4) Hypoxia ICD Code: R09.02 - Hypoxemia Status: Acute (5) Rhabdomyolysis ICD Code: M62.82 - Rhabdomyolysis Status: Acute (6) Acute renal failure ICD Code: N17.9 - Acute kidney failure, unspecified Assessment and Plan Mr. Reilly is a 61-year-old male with a history of COPD, hypertension, hyperlipidemia, CVA, schizoaffective disorder, bipolar disorder, GERD, renal failure, and arthritis who presents to the emergency room on 06/03/2017 from a [facility] for evaluation of altered mental status. Upon review of the medical records from the [facility] facility, it is noted he had a right lower lobe pneumonia diagnosed mid May. Head CT showed no acute infarct, acute hemorrhage, mass effect, or extra-axial fluid collection but scattered old lacunar infarcts within the bilateral basal ganglia. Mild periventricular and subcortical white matter small vessel ischemic changes bilaterally. Chest x-ray shows scattered bibasilar patchiness consistent with possible pneumonia. He is also found to have rhabdomyolysis with acute renal failure. Acute hypercapnic respiratory failure with bilateral pneumonia Chest x-ray with scattered bibasilar patchiness consistent with pneumonia. ABG with CO2 retention which improved with BiPAP. - BiPAP as needed. - Levaquin 750 mg IV every 24 hours. - Duo nebulizers every 6 hours and every 2 hours as needed for wheezing. - Solu-Medrol 125 mg IV push followed by 40 mg IV every 8 hours. - consult pulmonology for further assistance. Acute renal failure/ Rhabdo BUN 50, creatinine 2.77, EGFR 24 - significantly worse than prior visits. CPK elevated at 1288. - Patient has received fluid boluses x 2 liters in ED and is currently on normal saline at 100 cc per hour. Improving. - Home Lisinopril and meloxicam held. - Repeat labs in a.m. and follow trends. - Avoid nephrotoxins. Altered mental status Likely multi-factorial secondary to respiratory failure and renal failure. Head CT with no acute infarct, acute hemorrhage, mass effect, or extra-axial fluid collections; Scattered old lacunar infarcts within bilateral basal ganglia; Mild periventricular and subcortical white matter small vessel ischemic changes bilaterally; All the right posterior parietal infarct. UA not consistent with UTI; ammonia mildly elevated at 33; TSH normal at 2.2. Negative toxicology as follows: EtOH less than 3, acetaminophen less than 2.0, salicylates 2.6. - Hold sedating medications for now: Tramadol, gabapentin, trazodone, risperidone. Will make low dose benzo available as needed. - treatment as above. DVT prophylaxis: Heparin 5000 subcutaneous every 8 hours Discharge Planning Awaiting clinical improvement Problem Qualifiers (1) Pneumonia: Qualified Codes: J18.9 - Pneumonia, unspecified organism (2) Altered mental status: Qualified Codes: R41.0 - Disorientation, unspecified (3) Rhabdomyolysis: Qualified Codes: M62.82 - Rhabdomyolysis (4) Acute renal failure: Qualified Codes: N17.9 - Acute kidney failure, unspecified Isaac Garcia DO Jun 04, 2017 13:00
[2017-06-04] MEDS: hydrALAZINE HCL 20 MG/ML VIAL IV PUSH PRN (13:11)
--- NOTE | 2017-06-04 14:30 | EKG ---
Date Performed: 06/03/2017 Time Performed: 19:47:59 PTAGE: 61 years EKG: Sinus rhythm NONSPECIFIC T-WAVE ABNORMALITY BORDERLINE ECG NO PREVIOUS TRACING DOCTOR: Milady Wheeler Interpretating Date/Time 06/04/2017 14:25:50
[2017-06-04] MEDS ORDERED: ALPRAZolam 0.25 MG TAB PO PRN (15:15)
[2017-06-04] MEDS ORDERED: LORazepam 1 MG TAB PO PRN (15:30)
[2017-06-04] MEDS ORDERED: LORazepam 2 MG/ML VIAL IV PUSH PRN ×3 (15:30)
[2017-06-04] MEDS ORDERED: LORazepam 2 MG TAB PO PRN (15:30)
[2017-06-04] MEDS ORDERED: FLUMAZENIL 0.5 MG/5 ML VIAL IV PUSH PRN (15:30)
[2017-06-04] MEDS: LORazepam 2 MG/ML VIAL IV PUSH PRN (15:47)
[2017-06-04] MEDS ORDERED: PROPOFOL 500 MG/50 ML INJ 50 ML ONE ×2 (16:06→16:28)
[2017-06-04] MEDS ORDERED: ETOMIDATE 40 MG/20 ML VIAL ONE ×2 (16:07→16:08)
[2017-06-04] MEDS ORDERED: SUCCINYLCHOLINE CHLORIDE 200 MG/10 ML VIAL ONE (16:12)
[2017-06-04] MEDS ORDERED: SUCCINYLCHOLINE CHLORIDE 200 MG/10 ML VIAL IV PUSH STA (16:15)
[2017-06-04] MEDS ORDERED: PROPOFOL 500 MG/50 ML BTL IV PUSH ONE (16:15)
--- NOTE | 2017-06-04 16:21 | PD.PROCEDR ---
Procedure Note Procedure Endotracheal Intubation Diagnosis: Acute hypoxemic respiratory failure Indications: Acute hypoxemic respiratory failure Consent: Emergent Anesthesia: See MAR Description of the Procedure: The patient was positioned in the sniffing position. Pre-oxygenation was performed using a BVM 100% FIO2 . Anesthesia was induced via rapid sequence. A Glidescope 4 was used for laryngoscopy and a Grade 1 view was obtained. A 8.0 cuffed endotracheal tube was inserted atraumatically through the vocal cords. Confirmation of correct endotracheal tube placement was made by equal and bilateral breath sounds and colorimetric CO2 detection. The endotracheal tube was secured at 24 cm at the teeth. There were no immediate complications noted. The patient remained hemodynamically stable throughout the procedure. A chest x-ray has been ordered. I personally performed the procedure. Elvira Gutierrez MD Jun 04, 2017 16:21
[2017-06-04] MEDS ORDERED: SODIUM CHLORIDE 0.9% FLUSH 10 ML FLUSH IV FLUSH PRN (16:45)
--- NOTE | 2017-06-04 17:11 | RADRPT ---
EXAM DATE/TIME: 06/04/2017 16:32 [facility] COMPARISON: CHEST SINGLE AP, June 03, 2017, 20:21. INDICATIONS : Intubation MEDICAL HISTORY : Stroke. Seizures. Hypertension. SURGICAL HISTORY : None. ENCOUNTER: Initial ACUITY: 1 day PAIN SCORE: Non-responsive. LOCATION: Bilateral chest FINDINGS: ET tube in good position. Minimal bibasilar parenchymal changes are noted. There is no pneumothorax . There is no congestive failure. CONCLUSION: ET in good position. Bibasilar parenchymal changes stable Usman Pimentel MD FACR on June 04, 2017 at 17:08 Board Certified Radiologist. This report was verified electronically.
[2017-06-04] MEDS: LACTULOSE SYRUP 20 GM/30 ML CUP PO SCH (17:28)
[2017-06-04] MEDS: fentaNYL DRIP 250 ML IV PRN (17:28)
--- NOTE | 2017-06-04 17:33 | PD.CONS ---
[facility] Service Critical Care Medicine Consult Requested By Dr. Garcia Reason for Consult Altered mental status, acute respiratory failure Primary Care Physician Unknown History of Present Illness History of Present Illness Mr. Reilly is a 61-year-old male with a history of COPD, hypertension, hyperlipidemia, CVA, schizoaffective disorder, bipolar disorder, GERD, renal failure, and arthritis who presented to the emergency room on 06/03/2017 from a longterm facility for evaluation of altered mental status. Upon review of the medical records from the longterm facility, it is noted he had a right lower lobe pneumonia diagnosed mid May. Head CT showed no acute infarct, acute hemorrhage, mass effect, or extra-axial fluid collection but scattered old lacunar infarcts within the bilateral basal ganglia. Mild periventricular and subcortical white matter small vessel ischemic changes bilaterally. Chest x-ray shows scattered bibasilar patchiness consistent with possible pneumonia. Per documentation : While in the ER, patient was in moderate respiratory distress with tachypnea and utilization of accessory abdominal muscles to breathe. His lung sounds are bilaterally congested and he is confused and a poor historian. His speech is slightly slurred but this is not a new finding. He was noted to be on 5 L nasal cannula with oxygen saturation of 94% in the emergency room. Patient was admitted to the ICU by the hospitalist service. He was initiated on heparin drip for suspicion of PE. He was also noted to have an elevated CPK and creatinine. His blood pressures were running high overnight. This afternoon patient developed worsening agitation and disorientation and confusion. His heparin was stopped earlier by Dr. Garcia due to low suspicion for PE. Patient developed worsening respiration status with respirations in the 30s and O2 sats in the mid 80s. Critical care medicine was consulted. Patient was emergently intubated by Dr. Elvira Gutierrez and I subsequently took over patient care. When I evaluated the patient he had been sedated for the intubation and is being placed on mechanical ventilation. History was obtained by discussion with Dr. Garcia, Dr. Gutierrez and ICU nursing staff as well as documentation in the chart. ROS - General Review of Systems ROS Limitations: Orally intubated on mechanical ventilation, altered mental status/sedation PFSH Past Family Social History Past Medical History Patient is a poor historian with altered mental status and the following is obtained from the medical record: COPD Hypertension Hyperlipidemia CVA Schizoaffective disorder Bipolar disorder GERD Acute renal failure Arthritis Alcohol withdrawal seizures . Past Surgical History Patient is a poor historian with altered mental status and the following is obtained from the medical record: Left partial pneumonectomy Left hip surgery Reported Medications Reported Meds & Active Scripts Active Reported Proair Hfa 8.5 GM Inh (Albuterol Sulfate) 90 Mcg/Act Aer 1 Puff INH Q4H PRN 108 mcg/actuation Venlafaxine ER 24 HR (Venlafaxine HCl) 150 Mg Tab 150 Mg PO DAILY Trazodone (Trazodone HCl) 150 Mg Tablet 150 Mg PO HS Tramadol (Tramadol HCl) 50 Mg Tab 50 Mg PO Q6H PRN Tamsulosin (Tamsulosin HCl) 0.4 Mg Cap 0.4 Mg PO HS Risperidone 1 Mg Tab 1 Mg PO HS Meloxicam 15 Mg Tab 15 Mg PO DAILY Lisinopril 20 Mg Tab 20 Mg PO DAILY Gabapentin 300 Mg Cap 300 Mg PO TID Donepezil 5 Mg Tab 5 Mg PO HS Benztropine (Benztropine Mesylate) 0.5 Mg Tab 1 Mg PO HS Atorvastatin (Atorvastatin Calcium) 40 Mg Tab 40 Mg PO HS . 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 Ordered Medications Administered Medications Medications (Trade) Dose Ordered Sig/Solange Route PRN Reason Start Time Stop Time Status Last Admin Dose Admin Sodium Chloride 1,000 ml @ 100 mls/hr Q10H IV 06/03/17 21:39 06/04/17 07:49 Sodium Chloride (NS Flush) 2 ml UNSCH PRN IV FLUSH FLUSH AFTER USING IV ACCESS 06/03/17 21:45 06/04/17 07:49 Sodium Chloride (NS Flush) 2 ml BID IV FLUSH 06/04/17 09:00 06/04/17 07:48 Methylprednisolone Sodium Succinate (SoluMEDROL INJ) 40 mg Q8HR IV PUSH 06/04/17 06:00 06/04/17 13:12 Famotidine (Pepcid) 10 mg Q12HR PO 06/04/17 09:00 06/04/17 07:48 Levofloxacin/ Dextrose 150 ml @ 100 mls/hr Q48H IV 06/03/17 23:00 06/03/17 23:40 Albuterol/ Ipratropium (Duoneb Neb) 1 ampule Q6HR NEB NEB 06/04/17 04:00 06/04/17 14:10 Albuterol/ Ipratropium (Duoneb Neb) 1 ampule Q2HR NEB PRN NEB wheezing 06/03/17 22:45 06/03/17 23:42 Venlafaxine HCl (Effexor Xr) 150 mg DAILY PO 06/04/17 09:00 06/04/17 07:48 Enalaprilat (Vasotec Inj) 2.5 mg Q6H PRN IV PUSH bp>160/90 06/04/17 07:00 06/04/17 07:48 Amlodipine Besylate (Norvasc) 5 mg DAILY PO 06/04/17 12:00 06/04/17 11:56 Hydralazine HCl (Apresoline Inj) 10 mg Q4H PRN IV PUSH SBP> OR = 180, DBP> OR = 100 06/04/17 13:00 06/04/17 13:11 Lorazepam (Ativan Inj) 1 mg Q4H PRN IV PUSH CIWA 8 - 10 06/04/17 15:30 06/04/17 15:30 Lorazepam (Ativan Inj) 2 mg Q15M PRN IV PUSH CIWA > 20 06/04/17 15:30 06/04/17 15:47 . Family History Patient is a poor historian with altered mental status and the following is unable to be obtained . Social History Patient is a poor historian with altered mental status and the following is obtained from the medical record: Tobacco: History of tobacco abuse for many years Alcohol: History of alcohol abuse Physical Exam Vital Signs Vital Signs Date Time Temp Pulse Resp B/P (MAP) Pulse Ox O2 Delivery O2 Flow Rate FiO2 06/04/17 15:34 92 Bi-Pap 30 06/04/17 15:30 95 30 06/04/17 14:00 84 06/04/17 12:00 98.8 71 30 214/98 (136) 97 06/04/17 12:00 71 12/5/17 10:00 73 06/04/17 08:28 92 Nasal Cannula 4.00 06/04/17 08:00 83 06/04/17 08:00 100 Bi-Pap 30 06/04/17 08:00 97.5 80 31 184/142 (156) 90 06/04/17 07:22 97 30 06/04/17 06:00 52 06/04/17 04:00 97.9 66 37 199/91 (127) 98 06/04/17 04:00 66 06/04/17 03:35 99 25 06/04/17 03:01 76 06/04/17 02:27 97.8 74 30 186/92 (123) 97 06/04/17 02:10 06/04/17 01:45 98 2.00 06/04/17 01:45 98 Nasal Cannula 2.00 06/04/17 01:24 96 25 06/03/17 23:59 97.2 91 25 140/71 (94) 96 BiPAP 25 06/03/17 22:40 99 25 06/03/17 21:15 82 12 123/71 (88) 95 Nasal Cannula 3.00 06/03/17 21:15 95 Nasal Cannula 3.00 06/03/17 20:15 98 Aerosol Mask 06/03/17 20:15 75 12 96 Nasal Cannula 3.00 06/03/17 20:12 97.0 69 12 112/78 (89) 90 Physical Exam HEENT/ Neuro: Sedated, orally intubated, Pallor present, no icterus, tongue/ mucosa moist. Pupils 3 mm bilaterally equal reacting to light actively, moving all 4 extremities prior to intubation per nursing staff. Neck: No JVD Chest/Pulm: on mech vent, good air entry bilaterally, scattered rhonchi, minimal wheezing, no crackles. CVS: S1-S2 regular, no murmur GI/abdomen: soft, nontender, bowel sounds sluggish Extremities: warm bilaterally, bilateral edema Laboratory Laboratory Tests Test 06/03/17 20:05 06/03/17 23:15 06/04/17 02:35 06/04/17 07:15 White Blood Count 8.1 Red Blood Count 4.43 Hemoglobin 13.4 Hematocrit 40.4 Mean Corpuscular Volume 91.1 Mean Corpuscular Hemoglobin 30.3 Mean Corpuscular Hemoglobin Concent 33.3 Red Cell Distribution Width 15.0 Platelet Count 201 Mean Platelet Volume 8.1 Neutrophils (%) (Auto) 69.5 Lymphocytes (%) (Auto) 17.8 Monocytes (%) (Auto) 12.1 Eosinophils (%) (Auto) 0.2 Basophils (%) (Auto) 0.4 Neutrophils # (Auto) 5.6 Lymphocytes # (Auto) 1.4 Monocytes # (Auto) 1.0 Eosinophils # (Auto) 0.0 Basophils # (Auto) 0.0 CBC Comment DIFF FINAL Differential Comment Prothrombin Time 10.2 Prothromb Time International Ratio 1.0 Activated Partial Thromboplast Time 30.4 Urine Color YELLOW Urine Turbidity CLEAR Urine pH 5.5 Urine Specific [place] 1.024 Urine Protein 100 Urine Glucose (UA) NEG Urine Ketones NEG Urine Occult Blood MOD Urine Nitrite NEG Urine Bilirubin NEG Urine Urobilinogen LESS THAN 2.0 Urine Leukocyte Esterase NEG Urine RBC 1 Urine WBC 1 Urine Amorphous Sediment RARE Urine Mucus FEW Microscopic Urinalysis Comment CATH-CULT NOT IND Blood Gas Puncture Site RT RADIAL LT RADIAL RT RADIAL Blood Gas Patient Temperature 37.0 37.0 98.6 Blood Gas HCO3 21 19 21 Blood Gas Base Excess -4.6 -7.4 -3.2 Blood Gas Oxygen Saturation 95 90 95 Arterial Blood pH 7.28 7.20 7.36 Arterial Blood Partial Pressure CO2 46 52 38 Arterial Blood Partial Pressure O2 99 71 88 Arterial Blood Oxygen Content 17.7 16.1 18.3 Arterial Blood Carboxyhemoglobin 0.8 0.6 0.6 Arterial Blood Methemoglobin 0.7 0.9 1.3 Blood Gas Hemoglobin 13.1 12.8 13.7 Oxygen Delivery Device NASAL CANNULA BIPAP BIPAP 12IPAP/6EPAP Blood Gas Liter Flow 2 Blood Urea Nitrogen 50 Creatinine 2.77 Random Glucose 98 Total Protein 6.7 Albumin 2.9 Calcium Level 7.3 Alkaline Phosphatase 93 Aspartate Amino Transf (AST/SGOT) 70 Alanine Aminotransferase (ALT/SGPT) 23 Total Bilirubin 0.3 Sodium Level 137 Potassium Level 4.3 Chloride Level 106 Carbon Dioxide Level 22.7 Anion Gap 8 Estimat Glomerular Filtration Rate 24 Protein Corrected Calcium 7.5 Ammonia 33 Total Creatine Kinase 1288 Creatine Kinase MB 23.7 Creatine Kinase MB % 1.8 Troponin I LESS THAN 0.02 B-Type Natriuretic Peptide 15 Thyroid Stimulating Hormone 3rd Gen 2.220 Salicylates Level 2.6 Acetaminophen Level LESS THAN 2.0 Ethyl Alcohol Level LESS THAN 3 Blood Gas Ventilator Setting IPAP=12 EPAP=6 Blood Gas Inspired Oxygen 25 40 Nasal Screen MRSA (PCR) MRSA NOT DETECTED Test 06/04/17 08:21 06/04/17 12:31 06/04/17 15:29 White Blood Count 7.6 Red Blood Count 4.88 Hemoglobin 14.4 Hematocrit 44.3 Mean Corpuscular Volume 90.8 Mean Corpuscular Hemoglobin 29.5 Mean Corpuscular Hemoglobin Concent 32.5 Red Cell Distribution Width 14.9 Platelet Count 213 Mean Platelet Volume 7.8 Neutrophils (%) (Auto) 87.5 Lymphocytes (%) (Auto) 11.0 Monocytes (%) (Auto) 1.2 Eosinophils (%) (Auto) 0.0 Basophils (%) (Auto) 0.3 Neutrophils # (Auto) 6.7 Lymphocytes # (Auto) 0.8 Monocytes # (Auto) 0.1 Eosinophils # (Auto) 0.0 Basophils # (Auto) 0.0 CBC Comment DIFF FINAL Differential Comment Activated Partial Thromboplast Time 101.0 49.0 Blood Urea Nitrogen 27 Creatinine 1.51 Random Glucose 197 Calcium Level 8.4 Sodium Level 139 Potassium Level 3.7 Chloride Level 106 Carbon Dioxide Level 22.3 Anion Gap 11 Estimat Glomerular Filtration Rate 47 Total Creatine Kinase 1217 Creatine Kinase MB 39.7 Creatine Kinase MB % 3.3 Blood Gas Puncture Site RT RADIAL Blood Gas Patient Temperature 98.6 Blood Gas HCO3 21 Blood Gas Base Excess -2.7 Blood Gas Oxygen Saturation 79 Arterial Blood pH 7.46 Arterial Blood Partial Pressure CO2 29 Arterial Blood Partial Pressure O2 45 Arterial Blood Oxygen Content 19.7 Arterial Blood Carboxyhemoglobin 0.7 Arterial Blood Methemoglobin 1.4 Blood Gas Hemoglobin 17.8 Oxygen Delivery Device NASAL CANNULA Blood Gas Liter Flow 4 Date/Time Source Procedure Growth Status 06/03/17 21:18 Blood Peripheral Aerobic Blood Culture - Preliminary NO GROWTH IN 1 DAY Resulted 06/03/17 21:18 Blood Peripheral Anaerobic Blood Culture - Preliminary NO GROWTH IN 1 DAY Resulted 06/03/17 20:05 Nasal Washing Influenza Types A,B Antigen (KIEL) - Final NEGATIVE FOR FLU A AND B ANTIGEN.... Complete Result Diagram: 12/5/17 0821 12/5/17 0821 Imaging Last Impressions Head CT 06/03/171948 Signed Impressions: Service Date/Time: Saturday, June 03, 2017 20:31 - CONCLUSION: 1. No acute infarct, acute hemorrhage, mass effect or extra-axial fluid collections. 2. Scattered old lacunar infarcts within the bilateral basal ganglia. 3. Mild periventricular and subcortical white matter small vessel ischemic changes bilaterally. 4. Old right posterior parietal infarct. Mckay Stone MD Chest X-Ray 06/03/171948 Signed Impressions: Service Date/Time: Saturday, June 03, 2017 20:21 - CONCLUSION: Scattered bibasilar patchiness consistent with possible pneumonia. Clinical correlation is recommended. Mckay Stone MD Septic Shock Reassessment Heart: Regular rate and rhythm Lungs: Course Skin: Warm Peripheral Pulses: Bounding Right Radial Capillary Refill: Brisk Assessment and Plan Assessment and Plan 61-year-old male with: Encephalopathy Acute respiratory failure requiring mechanical ventilation COPD exacerbation Suspected pneumonia Rhabdomyolysis ROSENDO/ CKD Uncontrolled hypertension hyperlipidemia CVA bipolar disorder GERD arthritis Schizoaffective disorder/bipolar disorder History of alcohol abuse Plan: Neuro: Sedation with propofol/fentanyl gtt., daily sedation vacation. Follow neuro status. As patient was extremely hypertensive while on anticoagulation with heparin will obtain head CT without contrast to evaluate for ICH. CT head on admission was negative for any bleed and showed old lacunar infarcts. Was initiated on Ativan for Matthew protocol however not sure of this is alcohol withdrawal versus delirium from sepsis/pneumonia. Await head CT. Cardiovascular: IV hydration. Continue antihypertensives. Add labetalol when necessary. Start nicardipine drip to keep SBP less than 150 mmHg if needed. Discontinue Vasotec in view of ROSENDO. 12-lead EKG unremarkable with no ischemic changes. Cycle cardiac enzymes. BNP 15 on admission, order 2-D echo to further evaluate LV/ RV function. Pulmonary: Patient emergently intubated and placed on mechanical ventilation. Vent bundle, bronchodilators as needed. Continue IV Solu-Medrol. CT chest without contrast to evaluate for pneumonia or other pathology. Daily C Pap trials starting tomorrow. Sputum to be sent for Gram stain and cultures. GI/liver: Start tube feeds and advanced to goal as tolerated. Renal/: IV hydration, strict intake output, monitor and replete elect lites, follow BUN/creatinine. Follow CPK levels. ID: On IV Levaquin for empiric antibiotic coverage. Repeat blood cultures 2, sputum for Gram stain and cultures. Add Zosyn to broaden antibiotic coverage in view of worsening respiratory failure requiring intubation. Endocrine: SSI for glycemic control as needed. Heme: Follow CBC. Anticoagulation with heparin stopped. Once head CT obtained we will initiate subcutaneous Lovenox for DVT prophylaxis. Prophylaxis: Pepcid/SCDs. Subcutaneous Lovenox if head CT negative for ICH. Condition critical Time spent on critical care excluding procedures 70 minutes Dejuan Bermudez MD Jun 04, 2017 17:33
[2017-06-04] MEDS: PROPOFOL 1000 MG/100 ML INJ 100 ML IV PRN ×2 (17:37→21:37)
[2017-06-04] MEDS: PIPERACIL-TAZO 4.5 GM PREMIX 100 ML IV SCH ×2 (17:58→22:20)
--- NOTE | 2017-06-04 19:15 | RADRPT ---
EXAM DATE/TIME: 06/04/2017 18:46 [facility] COMPARISON: CT BRAIN W/O CONTRAST, June 03, 2017, 20:31. INDICATIONS : Encephalopathy. RADIATION DOSE: 47.96 CTDIvol (mGy) MEDICAL HISTORY : Seizures. Stroke Hypertension. SURGICAL HISTORY : None. ENCOUNTER: Initial ACUITY: 1 day PAIN SCALE: 5/10 LOCATION: cranial TECHNIQUE: Multiple contiguous axial images were obtained of the head. Using automated exposure control and adj ustment of the mA and/or kV according to patient size, radiation dose was kept as low as reasonably a chievable to obtain optimal diagnostic quality images. DICOM format image data is available electro nically for review and comparison. FINDINGS: There is no significant change compared to the previous examination dated 06/03/17. The ventricles, corona lci and cisterns are stable. No acute infarct, acute hemorrhage, mass effect or extra-axial fluid col lection is noted. Scattered old lacunar infarcts are noted within the bilateral basal ganglia. Mild p eriventricular and subcortical white matter small vessel ischemic changes are noted bilaterally. An o ld right posterior parietal infarct is unchanged. Chronic opacification of the right mastoid air cell s is stable. CONCLUSION: 1. No significant change compared to 06/03/17. 2. No acute infarct, acute hemorrhage, mass effect or extra-axial fluid collection. 3. Scattered old lacunar infarcts within the bilateral basal ganglia. 4. Mild periventricular and subcortical white matter small vessel ischemic changes bilaterally. 5. Old right posterior parietal infarct. 6. Chronic opacification of right mastoid air cells. Mckay Stone MD on June 04, 2017 at 19:10 Board Certified Radiologist. This report was verified electronically.
--- NOTE | 2017-06-04 19:20 | RADRPT ---
EXAM DATE/TIME: 06/04/2017 18:49 [facility] COMPARISON: No previous studies available for comparison. INDICATIONS : Respiratory distress. RADIATION DOSE: 9.59 CTDIvol (mGy) MEDICAL HISTORY : Hepatitis C. Chronic obstructive pulmonary disease. Hypertension. SURGICAL HISTORY : None. ENCOUNTER: Initial ACUITY: 1 day PAIN SCALE: 0/10 LOCATION: Bilateral chest TECHNIQUE: Volumetric scanning of the chest was performed. Using automated exposure control and adjustment of t he mA and/or kV according to patient size, radiation dose was kept as low as reasonably achievable to obtain optimal diagnostic quality images. DICOM format image data is available electronically for r eview and comparison. Follow-up recommendations for detected pulmonary nodules are based at a minimum on nodule size and pa tient risk factors according to Fleischner Society Guidelines. FINDINGS: Right mid lung field and posterior bibasilar patchiness is noted consistent with probable areas of pn eumonia and/or atelectasis. Clinical correlation is recommended. Tiny bilateral pleural effusions are noted. Minimal scattered emphysematous changes are noted. No pulmonary nodule or mass is noted. The heart is enlarged. Coronary artery calcifications are noted. No mediastinal, hilar or axillary lympha denopathy is noted. An endotracheal tube is in good position well above the nicole. A nasogastric is noted within the stomach. CONCLUSION: 1. Right mid lung field and posterior bibasilar patchiness consistent with probable areas of pneumoni a and/or atelectasis. Clinical correlation is recommended. 2. Tiny bilateral pleural effusions. 3. Cardiomegaly and coronary artery calcifications. 4. Minimal scattered emphysematous changes bilaterally. Mckay Stone MD on June 04, 2017 at 19:14 Board Certified Radiologist. This report was verified electronically.
[2017-06-04 19:51] LABS: AUTOMATED NEUTROPHIL # 11.4 TH/MM3 (1.8-7.7); BASOPHIL % 0.1 % (0.0-2.0); HEMATOCRIT 37.6 % (39.0-51.0); HEMOGLOBIN 12.5 GM/DL (13.0-17.0); LYMPH % 6.7 % (9.0-44.0); LYMPHOCYTE # 0.8 TH/MM3 (1.0-4.8); MEAN CELL VOLUME 89.6 FL (80.0-100.0); MEAN CORPUSCULAR HEMOGLOBIN 29.7 PG (27.0-34.0); MEAN CORPUSCULAR HGB CONC 33.2 % (32.0-36.0); MONO % 3.8 % (0.0-8.0); MONOCYTE # 0.5 TH/MM3 (0-0.9); NEUT % 89.4 % (16.0-70.0); PLATELET COUNT 196 TH/MM3 (150-450); RED CELL DISTRIBUTION WIDTH 14.5 % (11.6-17.2); WHITE BLOOD COUNT 12.7 TH/MM3 (4.0-11.0)
[2017-06-04 20:11] LABS: ALBUMIN 2.9 GM/DL (3.4-5.0); BICARBONATE 23.1 MEQ/L (21.0-32.0); BLOOD UREA NITROGEN 25 MG/DL (7-18); CALCIUM 8.3 MG/DL (8.5-10.1); CHLORIDE 106 MEQ/L (98-107); CREATININE 1.14 MG/DL (0.60-1.30); GLOMERULAR FILTRATION RATE 66 ML/MIN (>89); GLUCOSE,RANDOM 193 MG/DL (74-106); SODIUM (NA) 138 MEQ/L (136-145)
[2017-06-04 20:13] LABS: ALT (GPT) 23 U/L (12-78); AST (GOT) 45 U/L (15-37)
[2017-06-04 20:16] LABS: ALKALINE PHOSPHATASE 91 U/L (45-117); TOTAL BILIRUBIN ADULT 0.3 MG/DL (0.2-1.0); TOTAL PROTEIN 6.5 GM/DL (6.4-8.2)
[2017-06-04 20:21] LABS: TROPONIN I 0.02 NG/ML (0.02-0.05)
--- NOTE | 2017-06-04 21:43 | EKG ---
Date Performed: 06/04/2017 Time Performed: 16:49:26 PTAGE: 61 years EKG: Sinus rhythm Normal ECG PREVIOUS TRACING : 06/03/2017 19.47 Compared to prior tracing no significant change DOCTOR: Medhat Booth Interpretating Date/Time 06/04/2017 21:42:02
[2017-06-04 22:03] LABS: ALBUMIN 2.8 GM/DL (3.4-5.0); BICARBONATE 22.9 MEQ/L (21.0-32.0); CALCIUM 8.1 MG/DL (8.5-10.1); CREATININE 1.17 MG/DL (0.60-1.30); MAGNESIUM 1.6 MG/DL (1.5-2.5)
[2017-06-04 22:07] LABS: DIRECT BILIRUBIN ADULT 0.1 MG/DL (0.0-0.2); INDIRECT BILIRUBIN 0.1 MG/DL (0.0-0.8); PHOSPHORUS 1.8 MG/DL (2.5-4.9); TOTAL BILIRUBIN ADULT 0.2 MG/DL (0.2-1.0); TOTAL PROTEIN 6.4 GM/DL (6.4-8.2); TROPONIN I 0.02 NG/ML (0.02-0.05)
[2017-06-04] MEDS: BENZTROPINE MESYLATE 1 MG TAB PO SCH (22:19)
[2017-06-04] MEDS: ATORVASTATIN 40 MG TAB PO SCH (22:20)
[2017-06-04] MEDS: TAMSULOSIN HCL 0.4 MG CAP PO SCH (22:20)
[2017-06-04] MEDS: DONEPEZIL HCL 5 MG TAB PO SCH (22:20)
[2017-06-04] MEDS: CHLORHEXIDINE 0.12% (ORAL KIT) 15 ML CUP MT SCH (22:21)
[2017-06-05] VITALS (19 sets, daily range): BP systolic 101–167; BP diastolic 61–89; PULSE 48–121; RESP 16–30; TEMP 97.5–97.8; O2SAT 93–99
[2017-06-05] MEDS: PROPOFOL 1000 MG/100 ML INJ 100 ML IV PRN ×4 (03:16→21:26)
[2017-06-05] MEDS: CHLORHEXIDINE GLUCONATE 2 % 1 PACK (2 CLOTHS) TOP SCH ×2 (03:16→22:09)
[2017-06-05] MEDS: SODIUM CHLOR 0.9% 1000 ML INJ 1,000 ML IV SCH ×2 (04:14→13:54)
[2017-06-05] MEDS: RESP: ALBUTEROL 2.5 MG/IPRATROPIUM 0.5 MG NEB (SCH) NEB ×4 (04:27→21:15)
[2017-06-05] MEDS: methylPREDNISolone SOD SUCC 40 MG/1 ML VIAL IV PUSH SCH ×3 (05:03→21:25)
[2017-06-05] MEDS: PIPERACIL-TAZO 4.5 GM PREMIX 100 ML IV SCH ×4 (05:03→23:25)
[2017-06-05 05:08] LABS: AUTOMATED NEUTROPHIL # 9.6 TH/MM3 (1.8-7.7); EOSINOPHIL % 0.1 % (0.0-4.0); LYMPHOCYTE # 1.1 TH/MM3 (1.0-4.8); MEAN CELL VOLUME 89.8 FL (80.0-100.0); MEAN CORPUSCULAR HEMOGLOBIN 30.1 PG (27.0-34.0); MEAN CORPUSCULAR HGB CONC 33.5 % (32.0-36.0); MEAN PLATELET VOLUME 7.9 FL (7.0-11.0); MONO % 4.4 % (0.0-8.0); MONOCYTE # 0.5 TH/MM3 (0-0.9); NEUT % 85.5 % (16.0-70.0); PLATELET COUNT 195 TH/MM3 (150-450); RED BLOOD COUNT 4.34 MIL/MM3 (4.50-5.90); RED CELL DISTRIBUTION WIDTH 14.8 % (11.6-17.2); WHITE BLOOD COUNT 11.2 TH/MM3 (4.0-11.0)
[2017-06-05 05:33] LABS: MAGNESIUM 1.8 MG/DL (1.5-2.5)
[2017-06-05] MEDS: amLODIPine BESYLATE 5 MG TAB PO SCH (08:45)
[2017-06-05] MEDS: FAMOTIDINE 20 MG TAB PO SCH ×2 (08:45→21:25)
[2017-06-05] MEDS: VENLAFAXINE HCL XR 75 MG CAP PO SCH (08:45)
[2017-06-05] MEDS: LACTULOSE SYRUP 20 GM/30 ML CUP PO SCH ×3 (08:45→16:59)
[2017-06-05] MEDS: CHLORHEXIDINE 0.12% (ORAL KIT) 15 ML CUP MT SCH ×2 (08:53→21:26)
[2017-06-05] MEDS: SODIUM CHLORIDE 0.9% FLUSH 10 ML FLUSH IV FLUSH SCH ×3 (08:53→21:26)
--- NOTE | 2017-06-05 12:37 | ECHRPT ---
Indication: ASSESS LV/RV FUNCTION CONCLUSIONS Normal left ventricular size. Mild concentric left ventricular hypertrophy. The left ventricular systolic function is normal with an estimated ejection fraction in the range of 55-60%. Trace mitral valve regurgitation. There is trace tricuspid valve regurgitation. BP: 167 / 89 HR: 60 Rhythm: Sinus MEASUREMENTS (Male / Female) Normal Values Technical Quality:Technically difficult study 2D ECHO LV Diastolic Diameter PLAX 4.1 cm 4.2 - 5.9 / 3.9 - 5.3 cm LV Systolic Diameter PLAX 3.2 cm IVS Diastolic Thickness 1.1 cm 0.6 - 1.0 / 0.6 - 0.9 cm LVPW Diastolic Thickness 1.1 cm 0.6 - 1.0 / 0.6 - 0.9 cm LV Relative Wall Thickness 0.6 LVOT Diameter 2.5 cm Aortic Root Diameter 4.1 cm LA Systolic Diameter LX 4.5 cm 3.0 - 4.0 / 2.7 - 3.8 cm M-MODE AV Cusp Separation MM 2.4 cm DOPPLER AV Peak Velocity 125.0 cm/s AV Peak Gradient 6.3 mmHg AV Mean Gradient 3.0 mmHg AV Velocity Time Integral 26.0 cm LVOT Peak Velocity 107.0 cm/s LVOT Peak Gradient 4.6 mmHg LVOT Velocity Time Integral 24.2 cm LVOT Cardiac Index 3254.1 cm/minm AV Area Cont Eq vti 4.6 cm AV Area Cont Eq pk 4.2 cm Mitral E Point Velocity 82.4 cm/s Mitral A Point Velocity 55.8 cm/s Mitral E to A Ratio 1.5 LV E' Lateral Velocity 8.4 cm/s Mitral E to LV E' Lateral Ratio 9.8 LV E' Septal Velocity 8.1 cm/s Mitral E to LV E' Septal Ratio 10.2 PV Peak Velocity 58.7 cm/s PV Peak Gradient 1.4 mmHg FINDINGS LEFT VENTRICLE Normal left ventricular size. Mild concentric left ventricular hypertrophy. The left ventricular systolic function is normal with an estimated ejection fraction in the range of 55-60%. RIGHT VENTRICLE Normal right ventricular size and systolic function. LEFT ATRIUM The left atrial size is normal. RIGHT ATRIUM The right atrial size is normal. ATRIAL SEPTUM Normal atrial septal thickness without atrial level shunting by limited color doppler interrogation. AORTA The aortic root and proximal ascending aorta are normal in size on limited imaging. MITRAL VALVE Trace mitral valve regurgitation. AORTIC VALVE Trileaflet aortic valve. No aortic valve stenosis or regurgitation. TRICUSPID VALVE There is trace tricuspid valve regurgitation. PULMONARY VALVE No pulmonary valve regurgitation or stenosis. VESSELS The inferior vena cava is normal in size. PERICARDIUM No pericardial effusion. Castro Tian MD, FACC (Electronically Signed) Final Date:05 June 2017 12:36
--- NOTE | 2017-06-05 16:16 | HHI.CCPN ---
Subjective Remarks/Hospital Course 06/04: Mr. Reilly is a 61-year-old male with a history of COPD, hypertension, hyperlipidemia, CVA, schizoaffective disorder, bipolar disorder, GERD, renal failure, and arthritis who presented to the emergency room on 06/03/2017 from a halfway facility for evaluation of altered mental status. Upon review of the medical records from the halfway facility, it is noted he had a right lower lobe pneumonia diagnosed mid May. Head CT showed no acute infarct, acute hemorrhage, mass effect, or extra-axial fluid collection but scattered old lacunar infarcts within the bilateral basal ganglia. Mild periventricular and subcortical white matter small vessel ischemic changes bilaterally. Chest x-ray shows scattered bibasilar patchiness consistent with possible pneumonia. Per documentation : While in the ER, patient was in moderate respiratory distress with tachypnea and utilization of accessory abdominal muscles to breathe. His lung sounds are bilaterally congested and he is confused and a poor historian. His speech is slightly slurred but this is not a new finding. He was noted to be on 5 L nasal cannula with oxygen saturation of 94% in the emergency room. Patient was admitted to the ICU by the hospitalist service. He was initiated on heparin drip for suspicion of PE. He was also noted to have an elevated CPK and creatinine. His blood pressures were running high overnight. This afternoon patient developed worsening agitation and disorientation and confusion. His heparin was stopped earlier by Dr. Garcia due to low suspicion for PE. Patient developed worsening respiration status with respirations in the 30s and O2 sats in the mid 80s. Critical care medicine was consulted. Patient was emergently intubated by Dr. Elvira Gutierrez and I subsequently took over patient care. When I evaluated the patient he had been sedated for the intubation and is being placed on mechanical ventilation. History was obtained by discussion with Dr. Garcia, Dr. Gutierrez and ICU nursing staff as well as documentation in the chart. 06/05: Remains sedated, orally intubated on mechanical ventilation. Objective Vital Signs Date Time Temp Pulse Resp B/P (MAP) Pulse Ox O2 Delivery O2 Flow Rate FiO2 06/05/17 14:47 98 40 06/05/17 14:00 48 06/05/17 12:00 97.7 20 125/61 (82) 06/04/17 15:34 Bi-Pap 06/04/17 08:28 4.00 Intake and Output 06/05/17 06/05/17 06/06/17 08:00 16:00 00:00 Intake Total 650.4 ml 57.5 ml Output Total 650 ml Balance 0.4 ml 57.5 ml Result Diagram: 06/05/17 0439 06/04/17 2134 Other Results Microbiology Date/Time Source Procedure Growth Status 06/03/17 20:05 Nasal Washing Influenza Types A,B Antigen (KIEL) - Final NEGATIVE FOR FLU A AND B ANTIGEN.... Complete Laboratory Tests Test 06/04/17 17:23 Blood Gas Puncture Site RT RADIAL Blood Gas Patient Temperature 98.6 Blood Gas HCO3 20 mmol/L (22-26) Blood Gas Base Excess -3.9 mmol/L (-2-2) Blood Gas Oxygen Saturation 96 % (90-100) Arterial Blood pH 7.40 (7.380-7.420) Arterial Blood Partial Pressure CO2 33 mmHg (38-42) Arterial Blood Partial Pressure O2 109 mmHg (61-120) Arterial Blood Oxygen Content 17.5 Vol % (12.0-20.0) Arterial Blood Carboxyhemoglobin 0.6 % (0-4) Arterial Blood Methemoglobin 1.5 % (0-2) Blood Gas Hemoglobin 12.9 G/DL (12.0-16.0) Oxygen Delivery Device VENTILATOR Blood Gas Ventilator Setting A/C16/550/PEEP5 Blood Gas Inspired Oxygen 50 % Imaging Head CT done on 06/04 with no evidence of intracranial hemorrhage CT chest on 06/04 with bilateral patchy infiltrates Chest x-ray portable done on 06/04 which was personally reviewed: ET tube above nicole, NG tube in place, bilateral patchy infiltrates. Last Impressions Head CT 06/03/171948 Signed Impressions: Service Date/Time: Saturday, June 03, 2017 20:31 - CONCLUSION: 1. No acute infarct, acute hemorrhage, mass effect or extra-axial fluid collections. 2. Scattered old lacunar infarcts within the bilateral basal ganglia. 3. Mild periventricular and subcortical white matter small vessel ischemic changes bilaterally. 4. Old right posterior parietal infarct. Mckay Stone MD Chest X-Ray 06/03/171948 Signed Impressions: Service Date/Time: Saturday, June 03, 2017 20:21 - CONCLUSION: Scattered bibasilar patchiness consistent with possible pneumonia. Clinical correlation is recommended. Mckay Stone MD Objective Remarks HEENT/ Neuro: Sedated, orally intubated, Pallor present, no icterus, tongue/ mucosa moist. Pupils 3 mm bilaterally equal reacting to light actively, moving all 4 extremities prior to intubation per nursing staff. Neck: No JVD Chest/Pulm: on mech vent, good air entry bilaterally, scattered rhonchi, minimal wheezing, no crackles. CVS: S1-S2 regular, no murmur GI/abdomen: soft, nontender, bowel sounds sluggish Extremities: warm bilaterally, bilateral edema A/P Assessment and Plan 61-year-old male with: Encephalopathy Acute respiratory failure requiring mechanical ventilation COPD exacerbation Suspected pneumonia Rhabdomyolysis ROSENDO/ CKD Uncontrolled hypertension hyperlipidemia CVA bipolar disorder GERD arthritis Schizoaffective disorder/bipolar disorder History of alcohol abuse Plan: Neuro: Sedation with propofol/fentanyl gtt., daily sedation vacation. Follow neuro status. CT head negative for any bleed and showed old lacunar infarcts. Was initiated on Ativan for [place] protocol however doubt that this is alcohol withdrawal as patient reportedly has been off alcohol since August 2016 since admission to [facility] . More likely to be delirium from sepsis/pneumonia. Cardiovascular: IV hydration. Continue antihypertensives. labetalol when necessary. Start nicardipine drip to keep SBP less than 150 mmHg if needed. Discontinue Vasotec in view of ROSENDO. 12-lead EKG unremarkable with no ischemic changes. Cardiac enzymes negative, BNP 15 on 2-D echo with normal LV/RV function Pulmonary: Patient emergently intubated and placed on mechanical ventilation on 06/04. Vent bundle, bronchodilators as needed. Continue IV Solu-Medrol. CT chest revealed bilateral patchy infiltrates. Daily C Pap trials starting tomorrow. Sputum culture growing gram-negative rods from 06/04 GI/liver: Continue tube feeds and advanced to goal as tolerated. Renal/: IV hydration, strict intake output, monitor and replete elect lites, follow BUN/creatinine. Follow CPK levels. ID: On IV Levaquin for empiric antibiotic coverage. Repeat blood cultures 2, sputum for Gram stain and cultures. Added Zosyn on 06/05 to broaden antibiotic coverage in view of worsening respiratory failure requiring intubation. Endocrine: SSI for glycemic control as needed. Heme: Follow CBC. Prophylaxis: Pepcid/SCDs. Subcutaneous Lovenox Updated patient's on at bedside regarding current clinical status and plan of care and she voiced understanding and was agreeable. Explained possibility of needing tracheostomy and PEG tube if he is unable to be weaned off mechanical ventilation. Condition critical with acute respiratory failure requiring mechanical ventilation and severe encephalopathy probably some delirium/sepsis/pneumonia Time spent on critical care excluding procedures 30 minutes Dejuan Bermudez MD Jun 05, 2017 16:16
[2017-06-05] MEDS: ENOXAPARIN SODIUM 40 MG/0.4 ML SYRINGE SQ SCH (16:58)
[2017-06-05] MEDS: LEVOFLOXACIN 750 MG PREMIX INJ 150 ML IV SCH (16:58)
--- NOTE | 2017-06-05 19:06 | MB ---
cc: MARCOS RODRÍGUEZ M.D. DATE OF CONSULTATION: 06/05/2017. HISTORY OF PRESENT ILLNESS: Mr. Reilly is a 61-year-old male with known history of COPD, hypertension, hyperlipidemia, status post CVA and schizoaffective disorder. The patient was admitted from a [facility] with increasing shortness of breath and exacerbation of COPD after which he was admitted to the intensive care unit, became more confused, disoriented, intubated, mechanically ventilated and he is presently sedated on ventilatory support. The patient does not relate any history and history is obtained from his record. PAST MEDICAL HISTORY: His past medical history is that of: 1. COPD. 2. Hypertension. 3. Hyperlipidemia. 4. CVA. 5. Schizoaffective disorder. 6. Acid-reflux disease. 7. Acute renal insufficiency upon presentation. 8. History of alcohol withdrawal seizures in the past, not drinking at presently obviously as he is at a [facility]. 9. The patient had previous lung resection, etiology not obvious. 10. Previous left hip surgery. MEDICATIONS UPON PRESENTATION: 1. ProAir. 2. Venlafaxine. 3. Trazodone. 4. Tramadol. 5. Tamsulosin. 6. Risperidone. 7. Meloxicam. 8. Lisinopril. 9. Gabapentin. 10. Donepezil. 11. Benztropine. 12. Atorvastatin. ALLERGIES: 1. HYDROCHLOROTHIAZIDE. 2. CODEINE. FAMILY HISTORY: Noncontributory. Not obtainable. REVIEW OF SYSTEMS: A twelve-point review of systems is as per the history of present illness and past history, otherwise negative. PHYSICAL EXAMINATION: GENERAL: On exam, the patient is sedated on the ventilator. VITAL SIGNS: His temperature is 98 degrees Fahrenheit, his pulse is 60, respirations 18, blood pressure 120/70. HEAD, EYES, EARS, NOSE, THROAT: Unremarkable. Eyes without icterus. NECK: Without adenopathy, thyroid enlargement, central trachea. CHEST: A few scattered rhonchi bilaterally. CARDIAC: PMI not appreciated. S1-S2 audible. ABDOMEN: Obese. Lax. Bowel sounds audible. EXTREMITIES: 1+ edema. IMAGING STUDIES: CT scan of the chest shows patchy infiltrate right mid lung, atelectatic change or pneumonitis, bibasilar pleural effusions, cardiomegaly and coronary artery calcification, emphysematous change bilaterally which is minimal. LABORATORY DATA: White count today is 11,000, hemoglobin 13, hematocrit 39, platelets are 195,000. Sodium 140, potassium 3.7, BUN 24, creatinine 1.1. INR 1.0. ABG June 04 shows pH 7.40, pC02 33, p02 109, 50% inspired oxygen fraction on ventilatory support, assist control mode. IMPRESSION: 1. Acute respiratory failure. 2. Question pneumonia. 3. COPD. 4. Altered mental status. 5. Acute renal insufficiency. 6. Hypertension. 7. Hyperlipidemia. 8. Schizoaffective disorder. 9. Acid reflux. 10. Degenerative joint disease. 11. History of alcohol abuse. PLAN: 1. The patient is maintained on ventilatory support. This will be followed and the weaning process initiated as tolerated. 2. Antibiotic therapy has been instituted, and appropriately so. The patient followed by infectious disease. 3. Bronchodilator therapy will be continued. 4. Chest x-ray will be followed. I do thank you for asking me to partake in Mr. Reilly's care. Marcos Rodríguez MD WWW/JASSI /5:32 PM /6:43 PM
[2017-06-05] MEDS: ATORVASTATIN 40 MG TAB PO SCH (21:25)
[2017-06-05] MEDS: DONEPEZIL HCL 5 MG TAB PO SCH (21:25)
[2017-06-05] MEDS: BENZTROPINE MESYLATE 1 MG TAB PO SCH (21:25)
[2017-06-05] MEDS: TAMSULOSIN HCL 0.4 MG CAP PO SCH (21:25)
[2017-06-06] VITALS (19 sets, daily range): BP systolic 115–153; BP diastolic 63–90; PULSE 51–133; RESP 10–27; TEMP 98–99.1; O2SAT 93–99
[2017-06-06] MEDS: PROPOFOL 1000 MG/100 ML INJ 100 ML IV PRN ×7 (01:23→22:46)
[2017-06-06] MEDS: SODIUM CHLOR 0.9% 1000 ML INJ 1,000 ML IV SCH (02:00)
[2017-06-06] MEDS: RESP: ALBUTEROL 2.5 MG/IPRATROPIUM 0.5 MG NEB (SCH) NEB ×4 (04:28→21:03)
[2017-06-06] MEDS: PIPERACIL-TAZO 4.5 GM PREMIX 100 ML IV SCH ×4 (05:23→23:53)
[2017-06-06] MEDS: methylPREDNISolone SOD SUCC 40 MG/1 ML VIAL IV PUSH SCH ×3 (05:23→22:33)
[2017-06-06] MEDS ORDERED: SODIUM CHLOR 0.9% 1000 ML INJ 1,000 ML IV SCH (08:15)
[2017-06-06] MEDS ORDERED: SODIUM CHLORID 0.9% IV ONE (09:00)
[2017-06-06] MEDS ORDERED: POTASSIUM PHOSPHATE IV ONE (09:00)
[2017-06-06] MEDS: VENLAFAXINE HCL XR 75 MG CAP PO SCH (09:31)
[2017-06-06] MEDS: FAMOTIDINE 20 MG TAB PO SCH ×2 (09:31→20:43)
[2017-06-06] MEDS: amLODIPine BESYLATE 5 MG TAB PO SCH (09:31)
[2017-06-06] MEDS: SODIUM CHLORIDE 0.9% FLUSH 10 ML FLUSH IV FLUSH SCH ×2 (09:32→20:43)
[2017-06-06] MEDS: LACTULOSE SYRUP 20 GM/30 ML CUP PO SCH ×3 (09:32→17:37)
[2017-06-06] MEDS: CHLORHEXIDINE 0.12% (ORAL KIT) 15 ML CUP MT SCH ×2 (09:33→20:43)
--- NOTE | 2017-06-06 16:03 | HHI.PR ---
Subjective Remarks ON THE VNTILATOR Objective Vital Signs Date Time Temp Pulse Resp B/P (MAP) Pulse Ox O2 Delivery O2 Flow Rate FiO2 06/06/17 12:03 96 40 06/06/17 12:00 40 06/06/17 12:00 98.7 52 13 115/68 (84) 96 06/06/17 12:00 52 06/06/17 10:00 133 06/06/17 09:00 40 06/06/17 09:00 99 40 06/06/17 08:00 98.0 52 19 153/78 (103) 97 06/06/17 08:00 52 06/06/17 08:00 40 06/06/17 06:00 53 06/06/17 04:28 96 40 06/06/17 04:00 40 06/06/17 04:00 98.4 51 27 116/63 (80) 95 06/06/17 04:00 51 06/06/17 02:00 53 06/06/17 01:49 93 40 06/06/17 00:00 53 06/06/17 00:00 40 06/06/17 00:00 98.2 53 18 128/74 (92) 95 06/05/17 22:00 121 06/05/17 21:18 96 40 06/05/17 20:00 40 06/05/17 20:00 97.5 50 18 148/82 (104) 96 06/05/17 20:00 50 06/05/17 18:00 52 06/05/17 16:49 95 40 06/05/17 16:00 40 06/05/17 16:00 54 06/05/17 16:00 97.8 54 19 117/66 (83) 93 I/O 06/05/17 06/05/17 06/05/17 06/06/17 06/06/17 06/06/17 07:00 15:00 23:00 07:00 15:00 23:00 Intake Total 650.4 ml 157.5 ml 1002.1 ml 2225.3 ml Output Total 650 ml 400 ml 415 ml Balance 0.4 ml 157.5 ml 602.1 ml 1810.3 ml Intake IV Total 435.4 ml 157.5 ml 302.1 ml 1600.3 ml Tube Feeding 215 ml 700 ml 625 ml Output Urine Total 650 ml 400 ml 415 ml # Bowel Movements 1 Result Diagram: 06/05/17 0439 06/04/17 2134 Objective Remarks GENERAL: SKIN: Warm and dry. HEAD: Atraumatic. Normocephalic. EYES: Pupils equal and round. No scleral icterus. No injection or drainage. ENT: No nasal bleeding or discharge. Mucous membranes pink and moist. NECK: Trachea midline. No JVD. CARDIOVASCULAR: Regular rate and rhythm. RESPIRATORY: No accessory muscle use. SCATTERED RHONCHI. GASTROINTESTINAL: Abdomen soft, non-tender, nondistended. Hepatic and splenic margins not palpable. MUSCULOSKELETAL: Extremities without clubbing, cyanosis, or edema. No obvious deformities. NEUROLOGICAL: Awake and alert. No obvious cranial nerve deficits. Motor grossly within normal limits. Five out of 5 muscle strength in the arms and legs. Normal speech. PSYCHIATRIC: Appropriate mood and affect; insight and judgment normal. Assessment and Plan Assessment and Plan RESPIRATORY FAILURE COPD PNA PLAN VENT SUPPORT WEAN TOLERATED BRONCHODILATORS ANTIBIOTICS Marcos Rodríguez MD Jun 06, 2017 16:03
[2017-06-06] MEDS: ENOXAPARIN SODIUM 40 MG/0.4 ML SYRINGE SQ SCH (17:36)
[2017-06-06] MEDS: LEVOFLOXACIN 750 MG PREMIX INJ 150 ML IV SCH (17:37)
--- NOTE | 2017-06-06 19:56 | HHI.CCPN ---
Subjective Remarks/Hospital Course 06/04: Mr. Reilly is a 61-year-old male with a history of COPD, hypertension, hyperlipidemia, CVA, schizoaffective disorder, bipolar disorder, GERD, renal failure, and arthritis who presented to the emergency room on 06/03/2017 from a half-way facility for evaluation of altered mental status. Upon review of the medical records from the half-way facility, it is noted he had a right lower lobe pneumonia diagnosed mid May. Head CT showed no acute infarct, acute hemorrhage, mass effect, or extra-axial fluid collection but scattered old lacunar infarcts within the bilateral basal ganglia. Mild periventricular and subcortical white matter small vessel ischemic changes bilaterally. Chest x-ray shows scattered bibasilar patchiness consistent with possible pneumonia. Per documentation : While in the ER, patient was in moderate respiratory distress with tachypnea and utilization of accessory abdominal muscles to breathe. His lung sounds are bilaterally congested and he is confused and a poor historian. His speech is slightly slurred but this is not a new finding. He was noted to be on 5 L nasal cannula with oxygen saturation of 94% in the emergency room. Patient was admitted to the ICU by the hospitalist service. He was initiated on heparin drip for suspicion of PE. He was also noted to have an elevated CPK and creatinine. His blood pressures were running high overnight. This afternoon patient developed worsening agitation and disorientation and confusion. His heparin was stopped earlier by Dr. Garcia due to low suspicion for PE. Patient developed worsening respiration status with respirations in the 30s and O2 sats in the mid 80s. Critical care medicine was consulted. Patient was emergently intubated by Dr. Elvira Gutierrez and I subsequently took over patient care. When I evaluated the patient he had been sedated for the intubation and is being placed on mechanical ventilation. History was obtained by discussion with Dr. Garcia, Dr. Gutierrez and ICU nursing staff as well as documentation in the chart. 06/05: Remains sedated, orally intubated on mechanical ventilation. 06/06: Sedated, orally intubated on mechanical ventilation. Failed C Pap trial today. Got extremely anxious on lightening sedation. Objective Vital Signs Date Time Temp Pulse Resp B/P (MAP) Pulse Ox O2 Delivery O2 Flow Rate FiO2 06/06/17 18:00 52 06/06/17 16:36 96 40 06/06/17 16:00 99.1 10 150/90 (110) 06/04/17 15:34 Bi-Pap 06/04/17 08:28 4.00 Intake and Output 06/06/17 06/06/17 06/07/17 08:00 16:00 00:00 Intake Total 2225.3 ml 627 ml Output Total 415 ml 400 ml Balance 1810.3 ml 227 ml Result Diagram: 06/05/17 0439 06/04/17 2134 Other Results Microbiology Date/Time Source Procedure Growth Status 06/04/17 00:00 Sputum Endotracheal Gram Stain - Final Complete 06/04/17 00:00 Sputum Culture - Final Escherichia Coli Complete 06/03/17 20:05 Nasal Washing Influenza Types A,B Antigen (KIEL) - Final NEGATIVE FOR FLU A AND B ANTIGEN.... Complete Imaging Head CT done on 06/04 with no evidence of intracranial hemorrhage CT chest on 06/04 with bilateral patchy infiltrates Chest x-ray portable done on 06/04 which was personally reviewed: ET tube above nicole, NG tube in place, bilateral patchy infiltrates. Last Impressions Head CT 06/03/171948 Signed Impressions: Service Date/Time: Saturday, June 03, 2017 20:31 - CONCLUSION: 1. No acute infarct, acute hemorrhage, mass effect or extra-axial fluid collections. 2. Scattered old lacunar infarcts within the bilateral basal ganglia. 3. Mild periventricular and subcortical white matter small vessel ischemic changes bilaterally. 4. Old right posterior parietal infarct. Mckay Stone MD Chest X-Ray 06/03/171948 Signed Impressions: Service Date/Time: Saturday, June 03, 2017 20:21 - CONCLUSION: Scattered bibasilar patchiness consistent with possible pneumonia. Clinical correlation is recommended. Mckay Stone MD Objective Remarks HEENT/ Neuro: Sedated, orally intubated, Pallor present, no icterus, tongue/ mucosa moist. Pupils 3 mm bilaterally equal reacting to light actively, moving all 4 extremities prior to intubation per nursing staff. Neck: No JVD Chest/Pulm: on mech vent, good air entry bilaterally, scattered rhonchi, minimal wheezing, no crackles. CVS: S1-S2 regular, no murmur GI/abdomen: soft, nontender, bowel sounds sluggish Extremities: warm bilaterally, bilateral edema A/P Assessment and Plan 61-year-old male with: Encephalopathy Acute respiratory failure requiring mechanical ventilation COPD exacerbation Suspected pneumonia Rhabdomyolysis ROSENDO/ CKD Uncontrolled hypertension hyperlipidemia CVA bipolar disorder GERD arthritis Schizoaffective disorder/bipolar disorder History of alcohol abuse Plan: Neuro: Sedation with propofol/fentanyl gtt., daily sedation vacation. Follow neuro status. CT head negative for any bleed and showed old lacunar infarcts. Was initiated on Ativan for [place] protocol however doubt that this is alcohol withdrawal as patient reportedly has been off alcohol since August [address] [facility] . More likely to be delirium from sepsis/pneumonia. Cardiovascular: IV hydration. Continue antihypertensives. labetalol when necessary. Start nicardipine drip to keep SBP less than 150 mmHg if needed. Discontinue Vasotec in view of ROSENDO. 12-lead EKG unremarkable with no ischemic changes. Cardiac enzymes negative, BNP 15 on 2-D echo with normal LV/RV function Pulmonary: Patient emergently intubated and placed on mechanical ventilation on 06/04. Vent bundle, bronchodilators as needed. Continue IV Solu-Medrol. CT chest revealed bilateral patchy infiltrates. Daily C Pap trials. Sputum culture growing gram-negative rods from 06/04 GI/liver: Continue tube feeds and advanced to goal as tolerated. Renal/: IV hydration, strict intake output, monitor and replete elect lites, follow BUN/creatinine. Follow CPK levels. ID: On IV Levaquin for empiric antibiotic coverage. Repeat blood cultures 2, sputum for Gram stain and cultures. Added Zosyn on 06/05 to broaden antibiotic coverage in view of worsening respiratory failure requiring intubation. Endocrine: SSI for glycemic control as needed. Heme: Follow CBC. Prophylaxis: Pepcid/SCDs. Subcutaneous Lovenox Updated patient's on at bedside regarding current clinical status and plan of care and she voiced understanding and was agreeable. Explained possibility of needing tracheostomy and PEG tube if he is unable to be weaned off mechanical ventilation. Condition critical with acute respiratory failure requiring mechanical ventilation and severe encephalopathy probably some delirium/sepsis/pneumonia Time spent on critical care excluding procedures 30 minutes Dejuan Bermudez MD Jun 06, 2017 19:56
[2017-06-06] MEDS: DONEPEZIL HCL 5 MG TAB PO SCH (20:42)
[2017-06-06] MEDS: ATORVASTATIN 40 MG TAB PO SCH (20:42)
[2017-06-06] MEDS: TAMSULOSIN HCL 0.4 MG CAP PO SCH (20:42)
[2017-06-06] MEDS: BENZTROPINE MESYLATE 1 MG TAB PO SCH (20:43)
[2017-06-07] VITALS (19 sets, daily range): BP systolic 112–166; BP diastolic 69–81; PULSE 54–76; RESP 16–18; TEMP 98.1–98.8; O2SAT 95–99
[2017-06-07] MEDS: fentaNYL DRIP 250 ML IV PRN ×2 (00:14→19:50)
[2017-06-07] MEDS: RESP: ALBUTEROL 2.5 MG/IPRATROPIUM 0.5 MG NEB (PRN) NEB (01:37)
[2017-06-07] MEDS: PROPOFOL 1000 MG/100 ML INJ 100 ML IV PRN ×6 (03:47→21:27)
[2017-06-07] MEDS: CHLORHEXIDINE GLUCONATE 2 % 1 PACK (2 CLOTHS) TOP SCH (04:00)
[2017-06-07] MEDS: RESP: ALBUTEROL 2.5 MG/IPRATROPIUM 0.5 MG NEB (SCH) NEB ×4 (04:40→20:48)
[2017-06-07] MEDS: PIPERACIL-TAZO 4.5 GM PREMIX 100 ML IV SCH ×3 (06:03→18:10)
[2017-06-07] MEDS: methylPREDNISolone SOD SUCC 40 MG/1 ML VIAL IV PUSH SCH ×3 (06:03→21:26)
[2017-06-07] MEDS: CHLORHEXIDINE 0.12% (ORAL KIT) 15 ML CUP MT SCH ×2 (08:20→21:25)
[2017-06-07] MEDS: FAMOTIDINE 20 MG TAB PO SCH ×2 (08:20→21:26)
[2017-06-07] MEDS: VENLAFAXINE HCL XR 75 MG CAP PO SCH (08:20)
[2017-06-07] MEDS: amLODIPine BESYLATE 5 MG TAB PO SCH (08:20)
[2017-06-07] MEDS: LACTULOSE SYRUP 20 GM/30 ML CUP PO SCH ×2 (08:20→12:13)
[2017-06-07] MEDS: SODIUM CHLORIDE 0.9% FLUSH 10 ML FLUSH IV FLUSH SCH ×2 (08:21→21:25)
[2017-06-07] MEDS ORDERED: GLUCAGON 1 MG/ML VIAL OTHER PRN (14:00)
[2017-06-07] MEDS: INSULIN NovoLIN REGULAR SUPPLEMENTAL SCALE SQ SCH ×2 (14:00→20:00)
[2017-06-07] MEDS ORDERED: DEXTROSE 50% IN WATER 50 ML VIAL(D50) IV PUSH PRN (14:00)
--- NOTE | 2017-06-07 14:00 | HHI.CCPN ---
Subjective Remarks/Hospital Course 06/04: Mr. Reilly is a 61-year-old male with a history of COPD, hypertension, hyperlipidemia, CVA, schizoaffective disorder, bipolar disorder, GERD, renal failure, and arthritis who presented to the emergency room on [facility]03/[facility] for [facility] of altered mental status. Upon review of the medical records from the jail facility, it is noted he had a right lower lobe pneumonia diagnosed mid May. Head CT showed no acute infarct, acute hemorrhage, mass effect, or extra-axial fluid collection but scattered old lacunar infarcts within the bilateral basal ganglia. Mild periventricular and subcortical white matter small vessel ischemic changes bilaterally. Chest x-ray shows scattered bibasilar patchiness consistent with possible pneumonia. Per documentation : While in the ER, patient was in moderate respiratory distress with tachypnea and utilization of accessory abdominal muscles to breathe. His lung sounds are bilaterally congested and he is confused and a poor historian. His speech is slightly slurred but this is not a new finding. He was noted to be on 5 L nasal cannula with oxygen saturation of 94% in the emergency room. Patient was admitted to the ICU by the hospitalist service. He was initiated on heparin drip for suspicion of PE. He was also noted to have an elevated CPK and creatinine. His blood pressures were running high overnight. This afternoon patient developed worsening agitation and disorientation and confusion. His heparin was stopped earlier by Dr. Garcia due to low suspicion for PE. Patient developed worsening respiration status with respirations in the 30s and O2 sats in the mid 80s. Critical care medicine was consulted. Patient was emergently intubated by Dr. Elvira Gutierrez and I subsequently took over patient care. When I evaluated the patient he had been sedated for the intubation and is being placed on mechanical ventilation. History was obtained by discussion with Dr. Garcia, Dr. Gutierrez and ICU nursing staff as well as documentation in the chart. 06/05: Remains sedated, orally intubated on mechanical ventilation. 06/06: Sedated, orally intubated on mechanical ventilation. Failed C Pap trial today. Got extremely anxious on lightening sedation. 06/07 No events overnight. Sedated and intubated. Afebrile. Objective Vital Signs Date Time Temp Pulse Resp B/P (MAP) Pulse Ox O2 Delivery O2 Flow Rate FiO2 06/07/17 11:39 97 40 06/07/17 10:00 56 06/07/17 08:00 98.7 16 119/69 (86) 06/04/17 15:34 Bi-Pap 06/04/17 08:28 4.00 Intake and Output 06/07/17 06/07/17 06/08/17 08:00 16:00 00:00 Intake Total 1068 ml Output Total 400 ml Balance 668 ml Result Diagram: 06/05/17 0439 06/04/17 2134 Imaging Last Impressions Head CT 06/04/17 0000 Signed Impressions: Service Date/Time: Sunday, June 04, 2017 18:46 - CONCLUSION: 1. No significant change compared to 06/03/17. 2. No acute infarct, acute hemorrhage , mass effect or extra-axial fluid collection. 3. Scattered old lacunar infarcts within the bilateral basal ganglia. 4. Mild periventricular and subcortical white matter small vessel ischemic changes bilaterally. 5. Old right posterior parietal infarct. 6. Chronic opacification of right mastoid air cells. Mckay tSone MD Chest X-Ray 06/04/17 0000 Signed Impressions: Service Date/Time: Sunday, June 04, 2017 16:32 - CONCLUSION: ET in good position. Bibasilar parenchymal changes stable Usman Pimentel MD FACR Chest CT 06/04/17 0000 Signed Impressions: Service Date/Time: Sunday, June 04, 2017 18:49 - CONCLUSION: 1. Right mid lung field and posterior bibasilar patchiness consistent with probable areas of pneumonia and/or atelectasis. Clinical correlation is recommended. 2. Tiny bilateral pleural effusions. 3. Cardiomegaly and coronary artery calcifications. 4. Minimal scattered emphysematous changes bilaterally. Mckay Stone MD Objective Remarks GENERAL: Patient is 61 intubated and sedated SKIN: Warm and dry. HEAD: Normocephalic. EYES: No scleral icterus. No injection or drainage. NECK: Supple, trachea midline. No JVD or lymphadenopathy. CARDIOVASCULAR: Regular rate and rhythm without murmurs, gallops, or rubs. RESPIRATORY: Breath sounds equal bilaterally. No accessory muscle use. GASTROINTESTINAL: Abdomen soft, non-tender, nondistended. MUSCULOSKELETAL: No cyanosis, or edema. Neuro: sedated A/P Assessment and Plan 61-year-old male with: Encephalopathy Acute respiratory failure requiring mechanical ventilation COPD exacerbation Suspected pneumonia Rhabdomyolysis ROSENDO/ CKD Uncontrolled hypertension hyperlipidemia CVA bipolar disorder GERD arthritis Schizoaffective disorder/bipolar disorder History of alcohol abuse Plan: Neuro: Sedation with propofol/fentanyl gtt., daily sedation vacation. Follow neuro status. CT head negative for any bleed and showed old lacunar infarcts. On Aricept and Cogentin CV: Monitor HR and BP keep MAP>65mmHg On Norvasc 5mg daily and Lipitor. 2-D echo with normal LV/RV function Pulmo: Intubated and placed on mechanical ventilation on 06/04. Vent bundle, bronchodilators, on solumederol 40mg Q8 SBT daily as cordell. Check CXR GI/liver: Continue tube feeds-Glucerna 1.5@60ml/hr Renal/: Monitor renal function, electrolytes replacement per protocol. ID: On IV Levaquin /Zosyn, monitor for signs of infections ( Fever, WBC) Sputum cx: E.coli on 06/04 Endocrine: SSI for glycemic control as needed. Heme: Follow CBC. Prophylaxis: Pepcid/SCDs. SQ Lovenox Check labs today level 3 Katina Marcos MD Jun 07, 2017 14:00
[2017-06-07] MEDS: LEVOFLOXACIN 750 MG PREMIX INJ 150 ML IV SCH (14:42)
--- NOTE | 2017-06-07 14:54 | RADRPT ---
EXAM DATE/TIME: 06/07/2017 14:04 [facility] COMPARISON: CT THORAX W/O CONTRAST, June 04, 2017, 18:49. CHEST SINGLE AP, June 04, 2017, 16:32. INDICATIONS : Shortness of breath. MEDICAL HISTORY : Stroke. Seizures. Hypertension. SURGICAL HISTORY : None. ENCOUNTER: Initial ACUITY: 1 day PAIN SCORE: Non-responsive. LOCATION: Bilateral chest FINDINGS: Portable AP view of the chest demonstrates a normal-sized cardiac silhouette. ETT and nasogastric tub e remain present. Multiple EKG lines overlie the patient. There is new left lower lobe airspace conso lidation and stable atelectasis at the right lung base. No effusion or pneumothorax is identified. CONCLUSION: Left lower lobe air space consolidation is new and could represent an infectious process Arvind Dobson MD on June 07, 2017 at 14:51 Board Certified Radiologist. This report was verified electronically.
[2017-06-07] MEDS: ENOXAPARIN SODIUM 40 MG/0.4 ML SYRINGE SQ SCH (15:03)
--- NOTE | 2017-06-07 15:21 | HHI.PR ---
Subjective Remarks ON THE VNTILATOR Objective Vital Signs Date Time Temp Pulse Resp B/P (MAP) Pulse Ox O2 Delivery O2 Flow Rate FiO2 06/07/17 12:00 40 06/07/17 12:00 98.5 65 16 140/75 (96) 97 06/07/17 12:00 65 06/07/17 11:39 97 40 06/07/17 10:00 56 06/07/17 08:25 99 40 06/07/17 08:00 40 06/07/17 08:00 55 06/07/17 08:00 98.7 56 16 119/69 (86) 99 06/07/17 06:00 56 06/07/17 04:40 96 40 06/07/17 04:00 98.2 55 16 112/76 (88) 96 06/07/17 04:00 40 06/07/17 04:00 55 06/07/17 02:00 55 06/07/17 01:32 96 40 06/07/17 00:00 98.1 54 18 122/73 (89) 95 06/07/17 00:00 54 06/07/17 00:00 40 06/06/17 22:37 95 40 06/06/17 22:00 52 06/06/17 21:04 94 40 06/06/17 20:00 40 06/06/17 20:00 51 06/06/17 20:00 98.3 51 17 139/77 (97) 95 06/06/17 18:00 52 06/06/17 16:36 96 40 06/06/17 16:00 40 06/06/17 16:00 99.1 51 10 150/90 (110) 99 06/06/17 16:00 51 I/O 06/06/17 06/06/17 06/06/17 06/07/17 06/07/17 06/07/17 07:00 15:00 23:00 07:00 15:00 23:00 Intake Total 2735.3 ml 1337 ml 1068 ml Output Total 415 ml 400 ml 400 ml Balance 2320.3 ml 937 ml 668 ml Intake IV Total 2110.3 ml 710 ml 450 ml Tube Feeding 625 ml 627 ml 618 ml Output Urine Total 415 ml 400 ml 400 ml # Bowel Movements 1 1 1 Result Diagram: 06/05/17 0439 06/04/17 2134 Objective Remarks GENERAL: SKIN: Warm and dry. HEAD: Atraumatic. Normocephalic. EYES: Pupils equal and round. No scleral icterus. No injection or drainage. ENT: No nasal bleeding or discharge. Mucous membranes pink and moist. NECK: Trachea midline. No JVD. CARDIOVASCULAR: Regular rate and rhythm. RESPIRATORY: No accessory muscle use. SCATTERED RHONCHI. GASTROINTESTINAL: Abdomen soft, non-tender, nondistended. Hepatic and splenic margins not palpable. MUSCULOSKELETAL: Extremities without clubbing, cyanosis, or edema. No obvious deformities. NEUROLOGICAL: Awake and alert. No obvious cranial nerve deficits. Motor grossly within normal limits. Five out of 5 muscle strength in the arms and legs. Normal speech. PSYCHIATRIC: Appropriate mood and affect; insight and judgment normal. Assessment and Plan Assessment and Plan RESPIRATORY FAILURE COPD PNA PLAN VENT SUPPORT WEAN TOLERATED BRONCHODILATORS PULM. TOILET Marcos Rodríguez MD Jun 07, 2017 15:21
[2017-06-07 16:31] LABS: AUTOMATED NEUTROPHIL # 13.6 TH/MM3 (1.8-7.7); HEMATOCRIT 36.6 % (39.0-51.0); HEMOGLOBIN 12.3 GM/DL (13.0-17.0); LYMPH % 3.8 % (9.0-44.0); LYMPHOCYTE # 0.6 TH/MM3 (1.0-4.8); MEAN CELL VOLUME 91.1 FL (80.0-100.0); MEAN CORPUSCULAR HEMOGLOBIN 30.6 PG (27.0-34.0); MEAN CORPUSCULAR HGB CONC 33.6 % (32.0-36.0); MEAN PLATELET VOLUME 8.7 FL (7.0-11.0); MONO % 5.6 % (0.0-8.0); MONOCYTE # 0.8 TH/MM3 (0-0.9); NEUT % 90.6 % (16.0-70.0); PLATELET COUNT 184 TH/MM3 (150-450); RED BLOOD COUNT 4.02 MIL/MM3 (4.50-5.90); RED CELL DISTRIBUTION WIDTH 15.3 % (11.6-17.2)
[2017-06-07 17:03] LABS: ALBUMIN 2.6 GM/DL (3.4-5.0); ALKALINE PHOSPHATASE 89 U/L (45-117); ALT (GPT) 17 U/L (12-78); AST (GOT) 12 U/L (15-37); BICARBONATE 25.9 MEQ/L (21.0-32.0); BLOOD UREA NITROGEN 33 MG/DL (7-18); CALCIUM 8.5 MG/DL (8.5-10.1); CHLORIDE 110 MEQ/L (98-107); CREATININE 1.06 MG/DL (0.60-1.30); GLOMERULAR FILTRATION RATE 71 ML/MIN (>89); GLUCOSE,RANDOM 211 MG/DL (74-106); MAGNESIUM 2.5 MG/DL (1.5-2.5); PHOSPHORUS 2.5 MG/DL (2.5-4.9); SODIUM (NA) 142 MEQ/L (136-145); TOTAL BILIRUBIN ADULT 0.2 MG/DL (0.2-1.0); TOTAL PROTEIN 6.3 GM/DL (6.4-8.2)
[2017-06-07] MEDS: TAMSULOSIN HCL 0.4 MG CAP PO SCH (21:26)
[2017-06-07] MEDS: DONEPEZIL HCL 5 MG TAB PO SCH (21:26)
[2017-06-07] MEDS: ATORVASTATIN 40 MG TAB PO SCH (21:26)
[2017-06-07] MEDS: BENZTROPINE MESYLATE 1 MG TAB PO SCH (21:26)
[2017-06-08] VITALS (18 sets, daily range): BP systolic 126–170; BP diastolic 72–89; PULSE 55–91; RESP 18–22; TEMP 98.2–99; O2SAT 96–100
[2017-06-08] MEDS: PIPERACIL-TAZO 4.5 GM PREMIX 100 ML IV SCH ×4 (00:19→17:28)
[2017-06-08] MEDS: PROPOFOL 1000 MG/100 ML INJ 100 ML IV PRN ×8 (01:06→23:05)
[2017-06-08] MEDS: INSULIN NovoLIN REGULAR SUPPLEMENTAL SCALE SQ SCH ×4 (01:32→20:00)
[2017-06-08] MEDS: CHLORHEXIDINE GLUCONATE 2 % 1 PACK (2 CLOTHS) TOP SCH ×2 (04:00→21:46)
[2017-06-08] MEDS: RESP: ALBUTEROL 2.5 MG/IPRATROPIUM 0.5 MG NEB (PRN) NEB ×2 (04:24→08:21)
[2017-06-08] MEDS: methylPREDNISolone SOD SUCC 40 MG/1 ML VIAL IV PUSH SCH ×3 (05:28→21:44)
[2017-06-08 07:19] LABS: AUTOMATED NEUTROPHIL # 11.4 TH/MM3 (1.8-7.7); BASOPHIL % 0.1 % (0.0-2.0); HEMATOCRIT 36.6 % (39.0-51.0); HEMOGLOBIN 12.1 GM/DL (13.0-17.0); LYMPH % 4.7 % (9.0-44.0); LYMPHOCYTE # 0.6 TH/MM3 (1.0-4.8); MEAN CELL VOLUME 90.7 FL (80.0-100.0); MEAN CORPUSCULAR HGB CONC 33.1 % (32.0-36.0); MEAN PLATELET VOLUME 8.4 FL (7.0-11.0); MONO % 7.6 % (0.0-8.0); NEUT % 87.6 % (16.0-70.0); PLATELET COUNT 185 TH/MM3 (150-450); RED BLOOD COUNT 4.04 MIL/MM3 (4.50-5.90); RED CELL DISTRIBUTION WIDTH 15.3 % (11.6-17.2)
[2017-06-08 07:35] LABS: ALBUMIN 2.3 GM/DL (3.4-5.0); ALT (GPT) 16 U/L (12-78); AST (GOT) 10 U/L (15-37); BLOOD UREA NITROGEN 34 MG/DL (7-18); CALCIUM 8.3 MG/DL (8.5-10.1); CHLORIDE 110 MEQ/L (98-107); CREATININE 0.94 MG/DL (0.60-1.30); GLOMERULAR FILTRATION RATE 82 ML/MIN (>89); GLUCOSE,RANDOM 204 MG/DL (74-106); SODIUM (NA) 145 MEQ/L (136-145)
[2017-06-08 07:37] LABS: ALKALINE PHOSPHATASE 82 U/L (45-117); TOTAL BILIRUBIN ADULT 0.2 MG/DL (0.2-1.0); TOTAL PROTEIN 6.1 GM/DL (6.4-8.2)
[2017-06-08] MEDS: CHLORHEXIDINE 0.12% (ORAL KIT) 15 ML CUP MT SCH ×2 (08:00→21:45)
[2017-06-08 08:18] LABS: BANDS 10 % (0-6); LYMPHOCYTES 7 % (9-44); MONOCYTES 7 % (0-8); MYELOCYTES 1 % (0-0); NEUTROPHIL # MANUAL DIFF 11.2 TH/MM3 (1.8-7.7); POLYS (SEG NEUTROPHILS) 75 % (16-70)
[2017-06-08] MEDS: amLODIPine BESYLATE 5 MG TAB PO SCH (08:19)
[2017-06-08] MEDS: VENLAFAXINE HCL XR 75 MG CAP PO SCH (08:19)
[2017-06-08] MEDS: FAMOTIDINE 20 MG TAB PO SCH ×2 (08:20→21:44)
[2017-06-08] MEDS: hydrALAZINE HCL 20 MG/ML VIAL IV PUSH PRN (09:00)
--- NOTE | 2017-06-08 10:42 | HHI.CCPN ---
Subjective Remarks/Hospital Course 06/04: Mr. Reilly is a 61-year-old male with a history of COPD, hypertension, hyperlipidemia, CVA, schizoaffective disorder, bipolar disorder, GERD, renal failure, and arthritis who presented to the emergency room on 06/03/2017 from a senior care facility for evaluation of altered mental status. Upon review of the medical records from the senior care facility, it is noted he had a right lower lobe pneumonia diagnosed mid May. Head CT showed no acute infarct, acute hemorrhage, mass effect, or extra-axial fluid collection but scattered old lacunar infarcts within the bilateral basal ganglia. Mild periventricular and subcortical white matter small vessel ischemic changes bilaterally. Chest x-ray shows scattered bibasilar patchiness consistent with possible pneumonia. Per documentation : While in the ER, patient was in moderate respiratory distress with tachypnea and utilization of accessory abdominal muscles to breathe. His lung sounds are bilaterally congested and he is confused and a poor historian. His speech is slightly slurred but this is not a new finding. He was noted to be on 5 L nasal cannula with oxygen saturation of 94% in the emergency room. Patient was admitted to the ICU by the hospitalist service. He was initiated on heparin drip for suspicion of PE. He was also noted to have an elevated CPK and creatinine. His blood pressures were running high overnight. This afternoon patient developed worsening agitation and disorientation and confusion. His heparin was stopped earlier by Dr. Garcia due to low suspicion for PE. Patient developed worsening respiration status with respirations in the 30s and O2 sats in the mid 80s. Critical care medicine was consulted. Patient was emergently intubated by Dr. Elvira Gutierrez and I subsequently took over patient care. When I evaluated the patient he had been sedated for the intubation and is being placed on mechanical ventilation. History was obtained by discussion with Dr. Garcia, Dr. Gutierrez and ICU nursing staff as well as documentation in the chart. 06/05: Remains sedated, orally intubated on mechanical ventilation. 06/06: Sedated, orally intubated on mechanical ventilation. Failed C Pap trial today. Got extremely anxious on lightening sedation. 06/07 No events overnight. Sedated and intubated. Afebrile. 06/08 No events overnight. Sedated with Diprivan, Fentanyl and intubated. Objective Vital Signs Date Time Temp Pulse Resp B/P (MAP) Pulse Ox O2 Delivery O2 Flow Rate FiO2 06/08/17 10:00 72 06/08/17 08:23 99 40 06/08/17 08:00 98.6 22 170/77 (108) 06/04/17 15:34 Bi-Pap 06/04/17 08:28 4.00 Intake and Output 06/08/17 06/08/17 06/09/17 08:00 16:00 00:00 Intake Total 1040 ml Output Total 550 ml Balance 490 ml Result Diagram: 06/08/17 0653 06/08/17 0653 Other Results Laboratory Tests Test 06/07/17 15:21 06/08/17 06:53 White Blood Count 15.0 TH/MM3 13.0 TH/MM3 Red Blood Count 4.02 MIL/MM3 4.04 MIL/MM3 Hemoglobin 12.3 GM/DL 12.1 GM/DL Hematocrit 36.6 % 36.6 % Mean Corpuscular Volume 91.1 FL 90.7 FL Mean Corpuscular Hemoglobin 30.6 PG 30.0 PG Mean Corpuscular Hemoglobin Concent 33.6 % 33.1 % Red Cell Distribution Width 15.3 % 15.3 % Platelet Count 184 TH/MM3 185 TH/MM3 Mean Platelet Volume 8.7 FL 8.4 FL Neutrophils (%) (Auto) 90.6 % 87.6 % Lymphocytes (%) (Auto) 3.8 % 4.7 % Monocytes (%) (Auto) 5.6 % 7.6 % Eosinophils (%) (Auto) 0.0 % 0.0 % Basophils (%) (Auto) 0.0 % 0.1 % Neutrophils # (Auto) 13.6 TH/MM3 11.4 TH/MM3 Lymphocytes # (Auto) 0.6 TH/MM3 0.6 TH/MM3 Monocytes # (Auto) 0.8 TH/MM3 1.0 TH/MM3 Eosinophils # (Auto) 0.0 TH/MM3 0.0 TH/MM3 Basophils # (Auto) 0.0 TH/MM3 0.0 TH/MM3 CBC Comment DIFF FINAL AUTO DIFF Differential Comment FINAL DIFF MANUAL Blood Urea Nitrogen 33 MG/DL 34 MG/DL Creatinine 1.06 MG/DL 0.94 MG/DL Random Glucose 211 MG/DL 204 MG/DL Total Protein 6.3 GM/DL 6.1 GM/DL Albumin 2.6 GM/DL 2.3 GM/DL Calcium Level 8.5 MG/DL 8.3 MG/DL Phosphorus Level 2.5 MG/DL Magnesium Level 2.5 MG/DL Alkaline Phosphatase 89 U/L 82 U/L Aspartate Amino Transf (AST/SGOT) 12 U/L 10 U/L Alanine Aminotransferase (ALT/SGPT) 17 U/L 16 U/L Total Bilirubin 0.2 MG/DL 0.2 MG/DL Sodium Level 142 MEQ/L 145 MEQ/L Potassium Level 4.3 MEQ/L 4.5 MEQ/L Chloride Level 110 MEQ/L 110 MEQ/L Carbon Dioxide Level 25.9 MEQ/L 30.0 MEQ/L Anion Gap 6 MEQ/L 5 MEQ/L Estimat Glomerular Filtration Rate 71 ML/MIN 82 ML/MIN Differential Total Cells Counted 100 Neutrophils % (Manual) 75 % Band Neutrophils % 10 % Lymphocytes % 7 % Monocytes % 7 % Neutrophils # (Manual) 11.2 TH/MM3 Myelocytes 1 % Platelet Estimate NORMAL Platelet Morphology Comment NORMAL Imaging Last Impressions Chest X-Ray 06/07/17 0000 Signed Impressions: Service Date/Time: Wednesday, June 07, 2017 14:04 - CONCLUSION: Left lower lobe air space consolidation is new and could represent an infectious process Arvind Dobson MD Head CT 06/04/17 0000 Signed Impressions: Service Date/Time: Sunday, June 04, 2017 18:46 - CONCLUSION: 1. No significant change compared to 06/03/17. 2. No acute infarct, acute hemorrhage , mass effect or extra-axial fluid collection. 3. Scattered old lacunar infarcts within the bilateral basal ganglia. 4. Mild periventricular and subcortical white matter small vessel ischemic changes bilaterally. 5. Old right posterior parietal infarct. 6. Chronic opacification of right mastoid air cells. Mckay Stone MD Chest CT 06/04/17 0000 Signed Impressions: Service Date/Time: Sunday, June 04, 2017 18:49 - CONCLUSION: 1. Right mid lung field and posterior bibasilar patchiness consistent with probable areas of pneumonia and/or atelectasis. Clinical correlation is recommended. 2. Tiny bilateral pleural effusions. 3. Cardiomegaly and coronary artery calcifications. 4. Minimal scattered emphysematous changes bilaterally. Mckay Stone MD Objective Remarks GENERAL: Patient is 61 intubated and sedated SKIN: Warm and dry. HEAD: Normocephalic. EYES: No scleral icterus. No injection or drainage. NECK: Supple, trachea midline. No JVD or lymphadenopathy. CARDIOVASCULAR: Regular rate and rhythm without murmurs, gallops, or rubs. RESPIRATORY: Breath sounds equal bilaterally. No accessory muscle use. GASTROINTESTINAL: Abdomen soft, non-tender, nondistended. MUSCULOSKELETAL: No cyanosis, or edema. Neuro: sedated A/P Assessment and Plan 61-year-old male with: Encephalopathy Acute respiratory failure requiring mechanical ventilation COPD exacerbation Suspected pneumonia Rhabdomyolysis ROSENDO/ CKD Uncontrolled hypertension hyperlipidemia CVA bipolar disorder GERD arthritis Schizoaffective disorder/bipolar disorder History of alcohol abuse Plan: Neuro: On Sedation with propofol/fentanyl gtt., daily sedation vacation. Follow neuro status. CT head negative for any bleed and showed old lacunar infarcts. On Aricept and Cogentin CV: Monitor HR and BP keep MAP>65mmHg Place on Lopressor 50mg Q12 .on Lipitor. 2-D echo with normal LV/RV function Pulmo: Intubated and placed on mechanical ventilation on 06/04. Vent bundle, bronchodilators, on solumederol 40mg Q8 SBT daily as cordell. GI/liver: Continue tube feeds-Glucerna 1.5@60ml/hr Renal/: Monitor renal function, electrolytes replacement per protocol. Diurese with Lasix 40mg X1 ID: On IV Zosyn, monitor for signs of infections ( Fever, WBC) d/c Levaquin Sputum cx: E.coli on 06/04 Endocrine: SSI for glycemic control as needed. Heme: Follow CBC. Prophylaxis: Pepcid/SCDs. SQ Lovenox level 3 Katina Marcos MD Jun 08, 2017 10:42
[2017-06-08] MEDS ORDERED: FUROSEMIDE 40 MG/4 ML VIAL IV PUSH ONE (11:15)
[2017-06-08] MEDS: RESP: ALBUTEROL 2.5 MG/IPRATROPIUM 0.5 MG NEB (SCH) INH ×2 (13:20→21:13)
[2017-06-08] MEDS: ENOXAPARIN SODIUM 40 MG/0.4 ML SYRINGE SQ SCH (16:24)
[2017-06-08] MEDS: fentaNYL DRIP 250 ML IV PRN (18:40)
[2017-06-08] MEDS: ATORVASTATIN 40 MG TAB PO SCH (21:44)
[2017-06-08] MEDS: TAMSULOSIN HCL 0.4 MG CAP PO SCH (21:45)
[2017-06-08] MEDS: DONEPEZIL HCL 5 MG TAB PO SCH (21:45)
[2017-06-08] MEDS: BENZTROPINE MESYLATE 1 MG TAB PO SCH (21:45)
[2017-06-08] MEDS: SODIUM CHLORIDE 0.9% FLUSH 10 ML FLUSH IV FLUSH SCH (21:46)
[2017-06-09] VITALS (26 sets, daily range): BP systolic 115–160; BP diastolic 67–88; PULSE 67–130; RESP 15–54; TEMP 98.7–100.3; O2SAT 89–98
[2017-06-09] MEDS: INSULIN NovoLIN REGULAR SUPPLEMENTAL SCALE SQ SCH ×4 (02:00→19:52)
[2017-06-09] MEDS: PROPOFOL 1000 MG/100 ML INJ 100 ML IV PRN ×5 (02:38→22:08)
[2017-06-09] MEDS: PIPERACIL-TAZO 4.5 GM PREMIX 100 ML IV SCH ×4 (02:39→17:52)
[2017-06-09] MEDS: methylPREDNISolone SOD SUCC 40 MG/1 ML VIAL IV PUSH SCH ×3 (05:41→22:08)
[2017-06-09 06:59] LABS: AUTOMATED NEUTROPHIL # 10.6 TH/MM3 (1.8-7.7); BASOPHIL % 0.2 % (0.0-2.0); EOSINOPHIL % 0.2 % (0.0-4.0); HEMATOCRIT 37.6 % (39.0-51.0); HEMOGLOBIN 12.7 GM/DL (13.0-17.0); LYMPH % 10.4 % (9.0-44.0); LYMPHOCYTE # 1.4 TH/MM3 (1.0-4.8); MEAN CELL VOLUME 90.4 FL (80.0-100.0); MEAN CORPUSCULAR HEMOGLOBIN 30.5 PG (27.0-34.0); MEAN CORPUSCULAR HGB CONC 33.8 % (32.0-36.0); MEAN PLATELET VOLUME 8.5 FL (7.0-11.0); NEUT % 81.2 % (16.0-70.0); PLATELET COUNT 179 TH/MM3 (150-450); RED BLOOD COUNT 4.16 MIL/MM3 (4.50-5.90); WHITE BLOOD COUNT 13.1 TH/MM3 (4.0-11.0)
[2017-06-09 07:23] LABS: BICARBONATE 33.1 MEQ/L (21.0-32.0); CALCIUM 8.7 MG/DL (8.5-10.1); CREATININE 0.79 MG/DL (0.60-1.30)
[2017-06-09] MEDS: amLODIPine BESYLATE 5 MG TAB PO SCH (07:49)
[2017-06-09] MEDS: FAMOTIDINE 20 MG TAB PO SCH ×2 (07:49→22:09)
[2017-06-09] MEDS: CHLORHEXIDINE 0.12% (ORAL KIT) 15 ML CUP MT SCH ×2 (07:52→19:53)
[2017-06-09] MEDS: SODIUM CHLORIDE 0.9% FLUSH 10 ML FLUSH IV FLUSH SCH ×2 (07:52→22:09)
[2017-06-09 08:35] LABS: BANDS 2 % (0-6); CORRECTED NUCLEATED RBC 1 /100 WBC (0-0); LYMPHOCYTES 11 % (9-44); METAMYELOCYTES 2 % (0-1); MONOCYTES 10 % (0-8); MYELOCYTES 2 % (0-0); NEUTROPHIL # MANUAL DIFF 10.3 TH/MM3 (1.8-7.7); NUCLEATED RED BLOOD CELL 1 (0-0); POLYS (SEG NEUTROPHILS) 73 % (16-70)
[2017-06-09] MEDS: RESP: ALBUTEROL 2.5 MG/IPRATROPIUM 0.5 MG NEB (SCH) INH ×3 (08:37→21:12)
[2017-06-09] MEDS: VENLAFAXINE HCL XR 75 MG CAP PO SCH (09:00)
--- NOTE | 2017-06-09 09:47 | HHI.CCPN ---
Subjective Remarks/Hospital Course 06/04: Mr. Reilly is a 61-year-old male with a history of COPD, hypertension, hyperlipidemia, CVA, schizoaffective disorder, bipolar disorder, GERD, renal failure, and arthritis who presented to the emergency room on 06/03/2017 from a intermediate facility for evaluation of altered mental status. Upon review of the medical records from the intermediate facility, it is noted he had a right lower lobe pneumonia diagnosed mid May. Head CT showed no acute infarct, acute hemorrhage, mass effect, or extra-axial fluid collection but scattered old lacunar infarcts within the bilateral basal ganglia. Mild periventricular and subcortical white matter small vessel ischemic changes bilaterally. Chest x-ray shows scattered bibasilar patchiness consistent with possible pneumonia. Per documentation : While in the ER, patient was in moderate respiratory distress with tachypnea and utilization of accessory abdominal muscles to breathe. His lung sounds are bilaterally congested and he is confused and a poor historian. His speech is slightly slurred but this is not a new finding. He was noted to be on 5 L nasal cannula with oxygen saturation of 94% in the emergency room. Patient was admitted to the ICU by the hospitalist service. He was initiated on heparin drip for suspicion of PE. He was also noted to have an elevated CPK and creatinine. His blood pressures were running high overnight. This afternoon patient developed worsening agitation and disorientation and confusion. His heparin was stopped earlier by Dr. Garcia due to low suspicion for PE. Patient developed worsening respiration status with respirations in the 30s and O2 sats in the mid 80s. Critical care medicine was consulted. Patient was emergently intubated by Dr. Elvira Gutierrez and I subsequently took over patient care. When I evaluated the patient he had been sedated for the intubation and is being placed on mechanical ventilation. History was obtained by discussion with Dr. Garcia, Dr. Gutierrez and ICU nursing staff as well as documentation in the chart. 06/05: Remains sedated, orally intubated on mechanical ventilation. 06/06: Sedated, orally intubated on mechanical ventilation. Failed C Pap trial today. Got extremely anxious on lightening sedation. 06/07 No events overnight. Sedated and intubated. Afebrile. 06/08 No events overnight. Sedated with Diprivan, Fentanyl and intubated. 06/09 Patient remains sedated and intubated. Afebrile.Did not tolerate CPAP trials yesterday. Objective Vital Signs Date Time Temp Pulse Resp B/P (MAP) Pulse Ox O2 Delivery O2 Flow Rate FiO2 06/09/17 08:38 96 40 06/09/17 06:00 67 06/09/17 04:00 99.0 18 128/80 (96) Intake and Output 06/09/17 06/09/17 06/10/17 08:00 16:00 00:00 Intake Total 1042 ml Output Total 1150 ml Balance -108 ml Result Diagram: 06/09/17 0640 06/09/17 0640 Other Results Laboratory Tests Test 06/09/17 06:40 White Blood Count 13.1 TH/MM3 Red Blood Count 4.16 MIL/MM3 Hemoglobin 12.7 GM/DL Hematocrit 37.6 % Mean Corpuscular Volume 90.4 FL Mean Corpuscular Hemoglobin 30.5 PG Mean Corpuscular Hemoglobin Concent 33.8 % Red Cell Distribution Width 15.0 % Platelet Count 179 TH/MM3 Mean Platelet Volume 8.5 FL Neutrophils (%) (Auto) 81.2 % Lymphocytes (%) (Auto) 10.4 % Monocytes (%) (Auto) 8.0 % Eosinophils (%) (Auto) 0.2 % Basophils (%) (Auto) 0.2 % Neutrophils # (Auto) 10.6 TH/MM3 Lymphocytes # (Auto) 1.4 TH/MM3 Monocytes # (Auto) 1.0 TH/MM3 Eosinophils # (Auto) 0.0 TH/MM3 Basophils # (Auto) 0.0 TH/MM3 CBC Comment AUTO DIFF Differential Total Cells Counted 100 Neutrophils % (Manual) 73 % Band Neutrophils % 2 % Lymphocytes % 11 % Monocytes % 10 % Neutrophils # (Manual) 10.3 TH/MM3 Metamyelocytes 2 % Myelocytes 2 % Nucleated Red Blood Cells 1 /100 WBC Differential Comment FINAL DIFF MANUAL Platelet Estimate NORMAL Platelet Morphology Comment NORMAL Blood Urea Nitrogen 39 MG/DL Creatinine 0.79 MG/DL Random Glucose 110 MG/DL Calcium Level 8.7 MG/DL Sodium Level 147 MEQ/L Potassium Level 4.2 MEQ/L Chloride Level 110 MEQ/L Carbon Dioxide Level 33.1 MEQ/L Anion Gap 4 MEQ/L Estimat Glomerular Filtration Rate 100 ML/MIN Imaging Last Impressions Chest X-Ray 06/07/17 0000 Signed Impressions: Service Date/Time: Wednesday, June 07, 2017 14:04 - CONCLUSION: Left lower lobe air space consolidation is new and could represent an infectious process Arvind Dobson MD Head CT 06/04/17 0000 Signed Impressions: Service Date/Time: Sunday, June 04, 2017 18:46 - CONCLUSION: 1. No significant change compared to 06/03/17. 2. No acute infarct, acute hemorrhage , mass effect or extra-axial fluid collection. 3. Scattered old lacunar infarcts within the bilateral basal ganglia. 4. Mild periventricular and subcortical white matter small vessel ischemic changes bilaterally. 5. Old right posterior parietal infarct. 6. Chronic opacification of right mastoid air cells. Mckay Stone MD Chest CT 06/04/17 0000 Signed Impressions: Service Date/Time: Sunday, June 04, 2017 18:49 - CONCLUSION: 1. Right mid lung field and posterior bibasilar patchiness consistent with probable areas of pneumonia and/or atelectasis. Clinical correlation is recommended. 2. Tiny bilateral pleural effusions. 3. Cardiomegaly and coronary artery calcifications. 4. Minimal scattered emphysematous changes bilaterally. Mckay Stone MD Objective Remarks GENERAL: Patient is 61 intubated and sedated SKIN: Warm and dry. HEAD: Normocephalic. EYES: No scleral icterus. No injection or drainage. NECK: Supple, trachea midline. No JVD or lymphadenopathy. CARDIOVASCULAR: Regular rate and rhythm without murmurs, gallops, or rubs. RESPIRATORY: Breath sounds equal bilaterally. No accessory muscle use. GASTROINTESTINAL: Abdomen soft, non-tender, nondistended. MUSCULOSKELETAL: No cyanosis, or edema. Neuro: sedated A/P Assessment and Plan 61-year-old male with: Encephalopathy Acute respiratory failure requiring mechanical ventilation COPD exacerbation Suspected pneumonia Rhabdomyolysis ROSENDO/ CKD Uncontrolled hypertension hyperlipidemia CVA bipolar disorder GERD arthritis Schizoaffective disorder/bipolar disorder History of alcohol abuse Plan: Neuro: On Sedation with propofol/fentanyl gtt., daily sedation vacation. Follow neuro status. CT head negative for any bleed and showed old lacunar infarcts. On Aricept and Cogentin Precedex drip to facilitate with weaning trials. CV: Monitor HR and BP keep MAP>65mmHg On Lopressor 50mg Q12 .on Lipitor. 2-D echo with normal LV/RV function Pulmo: Intubated and placed on mechanical ventilation on 06/04. Vent bundle, bronchodilators, on solumederol 40mg Q8 SBT daily as cordell. Check CXR GI/liver: Continue tube feeds-Glucerna 1.5@60ml/hr Renal/: Monitor renal function, electrolytes replacement per protocol. Diurese with Lasix 40mg X1 ID: On IV Zosyn, monitor for signs of infections ( Fever, WBC) Sputum cx: E.coli on 06/04 Endocrine: SSI for glycemic control as needed. Heme: Follow CBC. Prophylaxis: Pepcid/SCDs. SQ Lovenox level 3 Katina Marcos MD Jun 09, 2017 09:47
[2017-06-09] MEDS: FREE WATER G-TUBE SCH ×3 (09:58→22:00)
[2017-06-09] MEDS ORDERED: FUROSEMIDE 40 MG/4 ML VIAL IV PUSH ONE (10:00)
--- NOTE | 2017-06-09 10:11 | RADRPT ---
EXAM DATE/TIME: 06/09/2017 09:56 [facility] COMPARISON: CHEST SINGLE AP, June 07, 2017, 14:04. INDICATIONS : Respiratory distress. MEDICAL HISTORY : Stroke. Seizures. Hypertension. SURGICAL HISTORY : None. ENCOUNTER: Subsequent ACUITY: 4 - 6 days PAIN SCORE: Non-responsive. LOCATION: Bilateral chest FINDINGS: Patchy basilar predominant left greater than right consolidation again noted, not significantly velasquez ed. No pleural effusion. No pneumothorax. Heart size stable, within normal limits. Endotracheal tube tip is approximately 4.5 cm above the nicole. Nasogastric tube courses into the sto mach. CONCLUSION: No significant change lines and tubes or basilar predominant bilateral consolidation. Arvind Nur MD on June 09, 2017 at 10:08 Board Certified Radiologist. This report was verified electronically.
[2017-06-09] MEDS: DEXMEDETOMIDINE INJ 200 MCG in SODIUM CHLORIDE 0.9% INJ 50 ML IV PRN (11:01)
[2017-06-09] MEDS: ENOXAPARIN SODIUM 40 MG/0.4 ML SYRINGE SQ SCH (17:51)
[2017-06-09] MEDS: fentaNYL DRIP 250 ML IV PRN (18:57)
[2017-06-09] MEDS: TAMSULOSIN HCL 0.4 MG CAP PO SCH (21:00)
[2017-06-09] MEDS: BENZTROPINE MESYLATE 1 MG TAB PO SCH (22:09)
[2017-06-09] MEDS: DONEPEZIL HCL 5 MG TAB PO SCH (22:09)
[2017-06-09] MEDS: ATORVASTATIN 40 MG TAB PO SCH (22:09)
[2017-06-09] MEDS: CHLORHEXIDINE GLUCONATE 2 % 1 PACK (2 CLOTHS) TOP SCH (23:56)
[2017-06-10] VITALS (28 sets, daily range): BP systolic 118–195; BP diastolic 62–122; PULSE 57–109; RESP 9–29; TEMP 99–99.2; O2SAT 92–100
[2017-06-10] MEDS: PIPERACIL-TAZO 4.5 GM PREMIX 100 ML IV SCH ×5 (01:23→22:26)
[2017-06-10] MEDS: INSULIN NovoLIN REGULAR SUPPLEMENTAL SCALE SQ SCH ×4 (01:26→20:00)
[2017-06-10] MEDS: methylPREDNISolone SOD SUCC 40 MG/1 ML VIAL IV PUSH SCH ×3 (04:47→22:27)
[2017-06-10] MEDS: PROPOFOL 1000 MG/100 ML INJ 100 ML IV PRN ×3 (04:47→22:28)
[2017-06-10 05:47] LABS: AUTOMATED NEUTROPHIL # 11.8 TH/MM3 (1.8-7.7); BASOPHIL # 0.1 TH/MM3 (0-0.2); BASOPHIL % 0.4 % (0.0-2.0); HEMOGLOBIN 12.9 GM/DL (13.0-17.0); LYMPH % 4.8 % (9.0-44.0); LYMPHOCYTE # 0.6 TH/MM3 (1.0-4.8); MEAN CELL VOLUME 89.7 FL (80.0-100.0); MEAN CORPUSCULAR HEMOGLOBIN 29.7 PG (27.0-34.0); MEAN CORPUSCULAR HGB CONC 33.1 % (32.0-36.0); MEAN PLATELET VOLUME 8.3 FL (7.0-11.0); MONO % 6.1 % (0.0-8.0); MONOCYTE # 0.8 TH/MM3 (0-0.9); NEUT % 88.7 % (16.0-70.0); PLATELET COUNT 185 TH/MM3 (150-450); RED BLOOD COUNT 4.35 MIL/MM3 (4.50-5.90); WHITE BLOOD COUNT 13.3 TH/MM3 (4.0-11.0)
[2017-06-10] MEDS: FREE WATER G-TUBE SCH ×3 (06:00→22:00)
[2017-06-10 06:03] LABS: BICARBONATE 36.5 MEQ/L (21.0-32.0); CALCIUM 8.6 MG/DL (8.5-10.1); CREATININE 0.86 MG/DL (0.60-1.30)
[2017-06-10 07:18] LABS: BANDS 1 % (0-6); LYMPHOCYTES 5 % (9-44); MONOCYTES 9 % (0-8); MYELOCYTES 2 % (0-0); NEUTROPHIL # MANUAL DIFF 11.4 TH/MM3 (1.8-7.7); POLYS (SEG NEUTROPHILS) 83 % (16-70)
--- NOTE | 2017-06-10 08:48 | HHI.CCPN ---
Subjective Remarks/Hospital Course 06/04: Mr. Reilly is a 61-year-old male with a history of COPD, hypertension, hyperlipidemia, CVA, schizoaffective disorder, bipolar disorder, GERD, renal failure, and arthritis who presented to the emergency room on 06/03/2017 from a [place] [facility] for evaluation of altered mental status. Upon review of the medical records from the [facility], it is noted he had a right lower lobe pneumonia diagnosed mid May. Head CT showed no acute infarct, acute hemorrhage, mass effect, or extra-axial fluid collection but scattered old lacunar infarcts within the bilateral basal ganglia. Mild periventricular and subcortical white matter small vessel ischemic changes bilaterally. Chest x-ray shows scattered bibasilar patchiness consistent with possible pneumonia. Per documentation : While in the ER, patient was in moderate respiratory distress with tachypnea and utilization of accessory abdominal muscles to breathe. His lung sounds are bilaterally congested and he is confused and a poor historian. His speech is slightly slurred but this is not a new finding. He was noted to be on 5 L nasal cannula with oxygen saturation of 94% in the emergency room. Patient was admitted to the ICU by the hospitalist service. He was initiated on heparin drip for suspicion of PE. He was also noted to have an elevated CPK and creatinine. His blood pressures were running high overnight. This afternoon patient developed worsening agitation and disorientation and confusion. His heparin was stopped earlier by Dr. Garcia due to low suspicion for PE. Patient developed worsening respiration status with respirations in the 30s and O2 sats in the mid 80s. Critical care medicine was consulted. Patient was emergently intubated by Dr. Elvira Gutierrez and I subsequently took over patient care. When I evaluated the patient he had been sedated for the intubation and is being placed on mechanical ventilation. History was obtained by discussion with Dr. Garcia, Dr. Gutierrez and ICU nursing staff as well as documentation in the chart. 06/05: Remains sedated, orally intubated on mechanical ventilation. 06/06: Sedated, orally intubated on mechanical ventilation. Failed C Pap trial today. Got extremely anxious on lightening sedation. 06/07 No events overnight. Sedated and intubated. Afebrile. 06/08 No events overnight. Sedated with Diprivan, Fentanyl and intubated. 06/09 Patient remains sedated and intubated. Afebrile.Did not tolerate CPAP trials yesterday. 06/10 Patient is sedated with Fentanyl and Diprivan. Afebrile. Did not tolerate CPAP yesterday as he became restless, agitated and tachycardic. Objective Vital Signs Date Time Temp Pulse Resp B/P (MAP) Pulse Ox O2 Delivery O2 Flow Rate FiO2 06/10/17 06:00 94 06/10/17 04:03 98 50 06/10/17 04:00 99.2 19 159/93 (115) Intake and Output 06/10/17 06/10/17 06/10/17 07:59 15:59 23:59 Intake Total 1762 ml 433 ml Output Total 900 ml Balance 862 ml 433 ml Result Diagram: 06/10/17 0536 06/10/17 0536 Other Results Laboratory Tests Test 06/10/17 05:36 White Blood Count 13.3 TH/MM3 Red Blood Count 4.35 MIL/MM3 Hemoglobin 12.9 GM/DL Hematocrit 39.0 % Mean Corpuscular Volume 89.7 FL Mean Corpuscular Hemoglobin 29.7 PG Mean Corpuscular Hemoglobin Concent 33.1 % Red Cell Distribution Width 15.0 % Platelet Count 185 TH/MM3 Mean Platelet Volume 8.3 FL Neutrophils (%) (Auto) 88.7 % Lymphocytes (%) (Auto) 4.8 % Monocytes (%) (Auto) 6.1 % Eosinophils (%) (Auto) 0.0 % Basophils (%) (Auto) 0.4 % Neutrophils # (Auto) 11.8 TH/MM3 Lymphocytes # (Auto) 0.6 TH/MM3 Monocytes # (Auto) 0.8 TH/MM3 Eosinophils # (Auto) 0.0 TH/MM3 Basophils # (Auto) 0.1 TH/MM3 CBC Comment AUTO DIFF Differential Total Cells Counted 100 Neutrophils % (Manual) 83 % Band Neutrophils % 1 % Lymphocytes % 5 % Monocytes % 9 % Neutrophils # (Manual) 11.4 TH/MM3 Myelocytes 2 % Differential Comment FINAL DIFF MANUAL Platelet Estimate NORMAL Platelet Morphology Comment NORMAL Red Cell Morphology Comment NORMAL Blood Urea Nitrogen 39 MG/DL Creatinine 0.86 MG/DL Random Glucose 178 MG/DL Calcium Level 8.6 MG/DL Sodium Level 145 MEQ/L Potassium Level 4.4 MEQ/L Chloride Level 105 MEQ/L Carbon Dioxide Level 36.5 MEQ/L Anion Gap 4 MEQ/L Estimat Glomerular Filtration Rate 91 ML/MIN Imaging Last Impressions Chest X-Ray 06/09/17 0000 Signed Impressions: Service Date/Time: Friday, June 09, 2017 09:56 - CONCLUSION: No significant change lines and tubes or basilar predominant bilateral consolidation. Arvind Nur MD Head CT 06/04/17 0000 Signed Impressions: Service Date/Time: Sunday, June 04, 2017 18:46 - CONCLUSION: 1. No significant change compared to 06/03/17. 2. No acute infarct, acute hemorrhage , mass effect or extra-axial fluid collection. 3. Scattered old lacunar infarcts within the bilateral basal ganglia. 4. Mild periventricular and subcortical white matter small vessel ischemic changes bilaterally. 5. Old right posterior parietal infarct. 6. Chronic opacification of right mastoid air cells. Mckay Stone MD Chest CT 06/04/17 0000 Signed Impressions: Service Date/Time: Sunday, June 04, 2017 18:49 - CONCLUSION: 1. Right mid lung field and posterior bibasilar patchiness consistent with probable areas of pneumonia and/or atelectasis. Clinical correlation is recommended. 2. Tiny bilateral pleural effusions. 3. Cardiomegaly and coronary artery calcifications. 4. Minimal scattered emphysematous changes bilaterally. Mckay Stone MD Objective Remarks GENERAL: Patient is 61 intubated and sedated SKIN: Warm and dry. HEAD: Normocephalic. EYES: No scleral icterus. No injection or drainage. NECK: Supple, trachea midline. No JVD or lymphadenopathy. CARDIOVASCULAR: Regular rate and rhythm without murmurs, gallops, or rubs. RESPIRATORY: Breath sounds equal bilaterally. No accessory muscle use. GASTROINTESTINAL: Abdomen soft, non-tender, nondistended. MUSCULOSKELETAL: No cyanosis, or edema. Neuro: sedated A/P Assessment and Plan 61-year-old male with: Encephalopathy Acute respiratory failure requiring mechanical ventilation COPD exacerbation Suspected pneumonia Rhabdomyolysis ROSENDO/ CKD Uncontrolled hypertension hyperlipidemia CVA bipolar disorder GERD arthritis Schizoaffective disorder/bipolar disorder History of alcohol abuse Plan: Neuro: On Sedation with propofol/fentanyl gtt., daily sedation vacation. Follow neuro status. CT head negative for any bleed and showed old lacunar infarcts. On Aricept and Cogentin Precedex drip to facilitate with weaning trials. CV: Monitor HR and BP keep MAP>65mmHg On Lopressor 50mg Q12 .on Lipitor. Norvasc 5mg daily 2-D echo with normal LV/RV function Pulmo: Intubated and placed on mechanical ventilation on 06/04. Vent bundle, bronchodilators, on solumederol 40mg Q8 SBT daily as cordell. GI/liver: Continue tube feeds-Glucerna 1.5@60ml/hr Renal/: Monitor renal function, electrolytes replacement per protocol. ID: On IV Zosyn, monitor for signs of infections ( Fever, WBC) Sputum cx: E.coli on 06/04 Endocrine: SSI for glycemic control as needed. Heme: Follow CBC. Prophylaxis: Pepcid/SCDs. SQ Lovenox level 3 Katina Marcos MD Jun 10, 2017 08:48
[2017-06-10] MEDS: VENLAFAXINE HCL XR 75 MG CAP PO SCH (09:00)
[2017-06-10] MEDS: RESP: ALBUTEROL 2.5 MG/IPRATROPIUM 0.5 MG NEB (SCH) INH ×3 (09:04→19:54)
[2017-06-10] MEDS: amLODIPine BESYLATE 5 MG TAB PO SCH (09:32)
[2017-06-10] MEDS: FAMOTIDINE 20 MG TAB PO SCH ×2 (09:32→22:28)
[2017-06-10] MEDS: SODIUM CHLORIDE 0.9% FLUSH 10 ML FLUSH IV FLUSH SCH ×2 (09:33→22:29)
[2017-06-10] MEDS: CHLORHEXIDINE 0.12% (ORAL KIT) 15 ML CUP MT SCH ×2 (09:35→22:29)
[2017-06-10] MEDS: DEXMEDETOMIDINE INJ 200 MCG in SODIUM CHLORIDE 0.9% INJ 50 ML IV PRN (09:37)
[2017-06-10] MEDS: LABETALOL HCL 100 MG/20 ML VIAL IV PUSH PRN ×2 (11:14→15:35)
[2017-06-10] MEDS: DEXMEDETOMIDINE INJ 1,000 MCG in SODIUM CHLOR 0.9% 250 ML INJ 240 ML IV PRN (12:10)
[2017-06-10] MEDS: ACETAMINOPHEN 325 MG TAB PO PRN (12:51)
[2017-06-10] MEDS ORDERED: HALOPERIDOL LACTATE 5 MG/ML AMP IV ONE (13:00)
[2017-06-10] MEDS: hydrALAZINE HCL 20 MG/ML VIAL IV PUSH PRN (13:07)
[2017-06-10 13:46] LABS: BACTERIA, URINE RARE /hpf; BILIRUBIN, URINE NEG (NEG); BLOOD, URINE SMALL (NEG); GLUCOSE,URINE NEG (NEG); KETONE, URINE NEG (NEG); MUCUS URINE FEW /lpf (OCC); NITRITE,URINE NEG (NEG); URINE COLOR LIGHT-YELLOW (YELLW/STRAW); URINE LEUKOCYTE ESTERASE NEG (NEG)
--- NOTE | 2017-06-10 17:19 | HHI.PR ---
Subjective Remarks ON THE VNTILATOR Objective Vital Signs Date Time Temp Pulse Resp B/P (MAP) Pulse Ox O2 Delivery O2 Flow Rate FiO2 06/10/17 15:00 98 60 06/10/17 13:00 101.1 78 27 178/84 (115) 99 06/10/17 12:20 101.1 77 20 178/92 (120) 92 06/10/17 12:00 40 06/10/17 12:00 80 06/10/17 11:37 100.9 89 25 175/88 (117) 93 06/10/17 11:22 94 50 06/10/17 11:06 100.8 103 18 193/104 (133) 93 06/10/17 11:01 100.6 104 22 195/122 (146) 93 06/10/17 10:00 68 06/10/17 10:00 100.2 68 9 132/69 (90) 98 06/10/17 09:05 96 50 06/10/17 09:05 50 06/10/17 09:00 100.0 84 15 137/72 (93) 97 06/10/17 08:30 40 06/10/17 08:00 40 06/10/17 08:00 90 06/10/17 08:00 100.0 90 17 187/81 (116) 94 06/10/17 07:00 99.9 90 17 154/77 (102) 97 06/10/17 06:00 94 06/10/17 06:00 99.9 94 20 167/80 (109) 96 06/10/17 05:00 99.9 82 17 120/70 (87) 93 06/10/17 04:03 98 50 06/10/17 04:00 99.2 103 19 159/93 (115) 97 06/10/17 04:00 40 06/10/17 04:00 103 06/10/17 02:00 78 06/10/17 01:34 98 50 06/10/17 00:00 40 06/10/17 00:00 99.0 80 17 133/76 (95) 96 06/10/17 00:00 80 06/09/17 22:00 100 06/09/17 21:13 97 50 06/09/17 20:00 99.2 90 18 130/69 (89) 95 06/09/17 20:00 40 06/09/17 20:00 90 06/09/17 19:00 88 06/09/17 18:00 113 I/O 06/09/17 06/09/17 06/09/17 06/10/17 06/10/17 06/10/17 07:00 15:00 23:00 07:00 15:00 23:00 Intake Total 1142 ml 100 ml 601 ml 1762 ml 757 ml Output Total 1150 ml 2550.0 ml 900 ml 375 ml Balance -8 ml 100 ml -1949.0 ml 862 ml 382 ml Intake IV Total 400 ml 100 ml 100 ml 661 ml 433 ml Tube Feeding 742 ml 501 ml 601 ml 324 ml Other 500 ml Output Urine Total 1150 ml 2550 ml 900 ml 375 ml Tube Feeding Residual Discard 0 ml 0 ml # Bowel Movements 1 2 1 0 Result Diagram: 06/10/1736 06/10/17535 Objective Remarks GENERAL: SKIN: Warm and dry. HEAD: Atraumatic. Normocephalic. EYES: Pupils equal and round. No scleral icterus. No injection or drainage. ENT: No nasal bleeding or discharge. Mucous membranes pink and moist. NECK: Trachea midline. No JVD. CARDIOVASCULAR: Regular rate and rhythm. RESPIRATORY: No accessory muscle use. SCATTERED RHONCHI. GASTROINTESTINAL: Abdomen soft, non-tender, nondistended. Hepatic and splenic margins not palpable. MUSCULOSKELETAL: Extremities without clubbing, cyanosis, or edema. No obvious deformities. NEUROLOGICAL: Awake and alert. No obvious cranial nerve deficits. Motor grossly within normal limits. Five out of 5 muscle strength in the arms and legs. Normal speech. PSYCHIATRIC: Appropriate mood and affect; insight and judgment normal. Assessment and Plan Assessment and Plan RESPIRATORY FAILURE COPD PNA PLAN VENT SUPPORT WEAN TOLERATED BRONCHODILATORS PULM. TOILET f/u cxray Marcos Rodríguez MD Jun 10, 2017 17:19
[2017-06-10] MEDS: ENOXAPARIN SODIUM 40 MG/0.4 ML SYRINGE SQ SCH (18:31)
[2017-06-10] MEDS: TAMSULOSIN HCL 0.4 MG CAP PO SCH (22:28)
[2017-06-10] MEDS: ATORVASTATIN 40 MG TAB PO SCH (22:28)
[2017-06-10] MEDS: BENZTROPINE MESYLATE 1 MG TAB PO SCH (22:28)
[2017-06-10] MEDS: DONEPEZIL HCL 5 MG TAB PO SCH (22:29)
[2017-06-10] MEDS: fentaNYL DRIP 250 ML IV PRN (22:46)
[2017-06-11] VITALS (31 sets, daily range): BP systolic 92–202; BP diastolic 55–109; PULSE 52–93; RESP 13–30; O2SAT 88–100
[2017-06-11] MEDS: INSULIN NovoLIN REGULAR SUPPLEMENTAL SCALE SQ SCH ×4 (02:00→22:58)
[2017-06-11] MEDS: PROPOFOL 1000 MG/100 ML INJ 100 ML IV PRN ×3 (03:10→17:05)
[2017-06-11] MEDS: CHLORHEXIDINE GLUCONATE 2 % 1 PACK (2 CLOTHS) TOP SCH (04:00)
[2017-06-11] MEDS: PIPERACIL-TAZO 4.5 GM PREMIX 100 ML IV SCH ×4 (05:48→22:53)
[2017-06-11] MEDS: FREE WATER G-TUBE SCH ×3 (05:48→22:00)
[2017-06-11] MEDS: methylPREDNISolone SOD SUCC 40 MG/1 ML VIAL IV PUSH SCH ×3 (05:52→22:53)
[2017-06-11] MEDS: VENLAFAXINE HCL XR 75 MG CAP PO SCH (09:00)
[2017-06-11] MEDS: RESP: ALBUTEROL 2.5 MG/IPRATROPIUM 0.5 MG NEB (SCH) INH (09:01)
[2017-06-11 09:10] LABS: AUTOMATED NEUTROPHIL # 16.4 TH/MM3 (1.8-7.7); BASOPHIL % 0.2 % (0.0-2.0); HEMATOCRIT 38.3 % (39.0-51.0); HEMOGLOBIN 12.7 GM/DL (13.0-17.0); LYMPH % 3.3 % (9.0-44.0); LYMPHOCYTE # 0.6 TH/MM3 (1.0-4.8); MEAN CELL VOLUME 90.7 FL (80.0-100.0); MEAN CORPUSCULAR HGB CONC 33.1 % (32.0-36.0); MEAN PLATELET VOLUME 8.7 FL (7.0-11.0); MONO % 5.9 % (0.0-8.0); MONOCYTE # 1.1 TH/MM3 (0-0.9); NEUT % 90.6 % (16.0-70.0); PLATELET COUNT 159 TH/MM3 (150-450); RED BLOOD COUNT 4.22 MIL/MM3 (4.50-5.90); RED CELL DISTRIBUTION WIDTH 14.5 % (11.6-17.2); WHITE BLOOD COUNT 18.1 TH/MM3 (4.0-11.0)
[2017-06-11] MEDS: SODIUM CHLORIDE 0.9% FLUSH 10 ML FLUSH IV FLUSH SCH ×2 (09:28→22:54)
[2017-06-11] MEDS: amLODIPine BESYLATE 5 MG TAB PO SCH (09:28)
[2017-06-11] MEDS: FAMOTIDINE 20 MG TAB PO SCH ×2 (09:28→22:55)
[2017-06-11] MEDS: CHLORHEXIDINE 0.12% (ORAL KIT) 15 ML CUP MT SCH ×2 (09:29→23:06)
[2017-06-11] MEDS: DEXMEDETOMIDINE INJ 1,000 MCG in SODIUM CHLOR 0.9% 250 ML INJ 240 ML IV PRN (09:31)
[2017-06-11 09:48] LABS: BICARBONATE 32.6 MEQ/L (21.0-32.0); CALCIUM 8.7 MG/DL (8.5-10.1); CREATININE 0.8 MG/DL (0.60-1.30)
[2017-06-11 10:03] LABS: BANDS 13 % (0-6); LYMPHOCYTES 4 % (9-44); METAMYELOCYTES 2 % (0-1); MONOCYTES 3 % (0-8); MYELOCYTES 3 % (0-0); NEUTROPHIL # MANUAL DIFF 16.8 TH/MM3 (1.8-7.7); POLYS (SEG NEUTROPHILS) 75 % (16-70); TOXIC GRANULATION 1+ (NORMAL); TOXIC VACUOLATION PRESENT (NONE SEEN)
--- NOTE | 2017-06-11 10:14 | HHI.CCPN ---
Subjective Remarks/Hospital Course 06/04: Mr. Reilly is a 61-year-old male with a history of COPD, hypertension, hyperlipidemia, CVA, schizoaffective disorder, bipolar disorder, GERD, renal failure, and arthritis who presented to the emergency room on 06/03/2017 from a care home facility for evaluation of altered mental status. Upon review of the medical records from the care home facility, it is noted he had a right lower lobe pneumonia diagnosed mid May. Head CT showed no acute infarct, acute hemorrhage, mass effect, or extra-axial fluid collection but scattered old lacunar infarcts within the bilateral basal ganglia. Mild periventricular and subcortical white matter small vessel ischemic changes bilaterally. Chest x-ray shows scattered bibasilar patchiness consistent with possible pneumonia. Per documentation : While in the ER, patient was in moderate respiratory distress with tachypnea and utilization of accessory abdominal muscles to breathe. His lung sounds are bilaterally congested and he is confused and a poor historian. His speech is slightly slurred but this is not a new finding. He was noted to be on 5 L nasal cannula with oxygen saturation of 94% in the emergency room. Patient was admitted to the ICU by the hospitalist service. He was initiated on heparin drip for suspicion of PE. He was also noted to have an elevated CPK and creatinine. His blood pressures were running high overnight. This afternoon patient developed worsening agitation and disorientation and confusion. His heparin was stopped earlier by Dr. Garcia due to low suspicion for PE. Patient developed worsening respiration status with respirations in the 30s and O2 sats in the mid 80s. Critical care medicine was consulted. Patient was emergently intubated by Dr. Elvira Gutierrez and I subsequently took over patient care. When I evaluated the patient he had been sedated for the intubation and is being placed on mechanical ventilation. History was obtained by discussion with Dr. Garcia, Dr. Gutierrez and ICU nursing staff as well as documentation in the chart. 06/05: Remains sedated, orally intubated on mechanical ventilation. 06/06: Sedated, orally intubated on mechanical ventilation. Failed C Pap trial today. Got extremely anxious on lightening sedation. 06/07 No events overnight. Sedated and intubated. Afebrile. 06/08 No events overnight. Sedated with Diprivan, Fentanyl and intubated. 06/09 Patient remains sedated and intubated. Afebrile.Did not tolerate CPAP trials yesterday. 06/10 Patient is sedated with Fentanyl and Diprivan. Afebrile. Did not tolerate CPAP yesterday as he became restless, agitated and tachycardic. 06/11 Patient remains sedated and intubated. Spiked fever with Tmax 101.1 Objective Vital Signs Date Time Temp Pulse Resp B/P (MAP) Pulse Ox O2 Delivery O2 Flow Rate FiO2 06/11/17 09:02 96 50 06/11/17 06:00 80 06/11/17 04:00 99.5 20 163/73 (103) Intake and Output 06/11/17 06/11/17 06/12/17 08:00 16:00 00:00 Intake Total 1051 ml Output Total 550 ml Balance 501 ml Result Diagram: 06/11/17 0840 06/11/17 0840 Other Results Laboratory Tests Test 06/10/17 12:00 06/10/17 12:45 06/11/17 08:40 Blood Gas Puncture Site RT RADIAL Blood Gas Patient Temperature 98.6 Blood Gas HCO3 36 mmol/L Blood Gas Base Excess 11.4 mmol/L Blood Gas Oxygen Saturation 90 % Arterial Blood pH 7.49 Arterial Blood Partial Pressure CO2 47 mmHg Arterial Blood Partial Pressure O2 61 mmHg Arterial Blood Oxygen Content 17.0 Vol % Arterial Blood Carboxyhemoglobin 1.1 % Arterial Blood Methemoglobin 1.3 % Blood Gas Hemoglobin 13.5 G/DL Oxygen Delivery Device VENTILATOR Blood Gas Ventilator Setting EPAP 5 PS 10 Blood Gas Inspired Oxygen 50 % Urine Color LIGHT-YELLOW Urine Turbidity CLEAR Urine pH 8.0 Urine Specific [place] 1.019 Urine Protein 30 mg/dL Urine Glucose (UA) NEG mg/dL Urine Ketones NEG mg/dL Urine Occult Blood SMALL Urine Nitrite NEG Urine Bilirubin NEG Urine Urobilinogen LESS THAN 2.0 MG/DL Urine Leukocyte Esterase NEG Urine RBC 28 /hpf Urine WBC 1 /hpf Urine Bacteria RARE /hpf Urine Mucus FEW /lpf Microscopic Urinalysis Comment CATH-CULTURE IND White Blood Count 18.1 TH/MM3 Red Blood Count 4.22 MIL/MM3 Hemoglobin 12.7 GM/DL Hematocrit 38.3 % Mean Corpuscular Volume 90.7 FL Mean Corpuscular Hemoglobin 30.0 PG Mean Corpuscular Hemoglobin Concent 33.1 % Red Cell Distribution Width 14.5 % Platelet Count 159 TH/MM3 Mean Platelet Volume 8.7 FL Neutrophils (%) (Auto) 90.6 % Lymphocytes (%) (Auto) 3.3 % Monocytes (%) (Auto) 5.9 % Eosinophils (%) (Auto) 0.0 % Basophils (%) (Auto) 0.2 % Neutrophils # (Auto) 16.4 TH/MM3 Lymphocytes # (Auto) 0.6 TH/MM3 Monocytes # (Auto) 1.1 TH/MM3 Eosinophils # (Auto) 0.0 TH/MM3 Basophils # (Auto) 0.0 TH/MM3 CBC Comment AUTO DIFF Blood Urea Nitrogen 40 MG/DL Creatinine 0.80 MG/DL Random Glucose 168 MG/DL Calcium Level 8.7 MG/DL Sodium Level 142 MEQ/L Potassium Level 4.2 MEQ/L Chloride Level 104 MEQ/L Carbon Dioxide Level 32.6 MEQ/L Anion Gap 5 MEQ/L Estimat Glomerular Filtration Rate 99 ML/MIN Imaging Last Impressions Chest X-Ray 06/09/17 0000 Signed Impressions: Service Date/Time: Friday, June 09, 2017 09:56 - CONCLUSION: No significant change lines and tubes or basilar predominant bilateral consolidation. Arvind Nur MD Head CT 06/04/17 0000 Signed Impressions: Service Date/Time: Sunday, June 04, 2017 18:46 - CONCLUSION: 1. No significant change compared to 06/03/17. 2. No acute infarct, acute hemorrhage , mass effect or extra-axial fluid collection. 3. Scattered old lacunar infarcts within the bilateral basal ganglia. 4. Mild periventricular and subcortical white matter small vessel ischemic changes bilaterally. 5. Old right posterior parietal infarct. 6. Chronic opacification of right mastoid air cells. Mckay Stone MD Chest CT 06/04/17 0000 Signed Impressions: Service Date/Time: Sunday, June 04, 2017 18:49 - CONCLUSION: 1. Right mid lung field and posterior bibasilar patchiness consistent with probable areas of pneumonia and/or atelectasis. Clinical correlation is recommended. 2. Tiny bilateral pleural effusions. 3. Cardiomegaly and coronary artery calcifications. 4. Minimal scattered emphysematous changes bilaterally. Mckay Stone MD Objective Remarks GENERAL: Patient is 61 intubated and sedated SKIN: Warm and dry. HEAD: Normocephalic. EYES: No scleral icterus. No injection or drainage. NECK: Supple, trachea midline. No JVD or lymphadenopathy. CARDIOVASCULAR: Regular rate and rhythm without murmurs, gallops, or rubs. RESPIRATORY: Breath sounds equal bilaterally. No accessory muscle use. GASTROINTESTINAL: Abdomen soft, non-tender, nondistended. MUSCULOSKELETAL: No cyanosis, or edema. Neuro: sedated A/P Assessment and Plan 61-year-old male with: Encephalopathy Acute respiratory failure requiring mechanical ventilation COPD exacerbation Suspected pneumonia Rhabdomyolysis ROSENDO/ CKD Uncontrolled hypertension hyperlipidemia CVA bipolar disorder GERD arthritis Schizoaffective disorder/bipolar disorder History of alcohol abuse Plan: Neuro: On Sedation with propofol/fentanyl gtt., daily sedation vacation. Follow neuro status. CT head negative for any bleed and showed old lacunar infarcts. On Aricept and Cogentin Precedex drip to facilitate with weaning trials. CV: Monitor HR and BP keep MAP>65mmHg On Lopressor 50mg Q12 .on Lipitor. Norvasc 5mg daily 2-D echo with normal LV/RV function Pulmo: Intubated and placed on mechanical ventilation on 06/04. Vent bundle, bronchodilators, on solumederol 40mg Q8 SBT daily as cordell. GI/liver: Continue tube feeds-Glucerna 1.5@60ml/hr Renal/: Monitor renal function, electrolytes replacement per protocol. ID: On IV Zosyn, add Vanco, monitor for signs of infections ( Fever, WBC) Sputum cx: E.coli on 06/04, pancultured 06/10 ( Blood, sputum, urine) ID eval. Endocrine: SSI for glycemic control as needed. Heme: Follow CBC. Prophylaxis: Pepcid/SCDs. SQ Lovenox level 3 Katina Marcos MD Jun 11, 2017 10:14
[2017-06-11] MEDS ORDERED: VANCOMYCIN INJ 1,000 MG in SODIUM CHLOR 0.9% 250 ML INJ 250 ML IV SCH (10:15)
[2017-06-11] MEDS ORDERED: Vancomycin Consult Pharmacy 1 EA OTHER SCH (10:15)
[2017-06-11] MEDS: hydrALAZINE HCL 20 MG/ML VIAL IV PUSH PRN (11:14)
[2017-06-11] MEDS: RESP: ALBUTEROL 2.5 MG/IPRATROPIUM 0.5 MG NEB (SCH) NEB ×3 (12:00→20:47)
[2017-06-11] MEDS: LORazepam 2 MG/ML VIAL IV PUSH PRN (12:31)
--- NOTE | 2017-06-11 14:16 | HHI.PR ---
Subjective Remarks ON THE VNTILATOR Objective Vital Signs Date Time Temp Pulse Resp B/P (MAP) Pulse Ox O2 Delivery O2 Flow Rate FiO2 06/11/17 14:00 55 16 105/59 (74) 93 06/11/17 14:00 55 06/11/17 13:00 61 18 121/63 (82) 88 06/11/17 12:00 73 06/11/17 12:00 73 30 133/72 (92) 93 06/11/17 12:00 60 06/11/17 11:45 70 20 150/79 (102) 96 06/11/17 11:13 96 50 06/11/17 11:00 58 15 202/97 (132) 96 06/11/17 10:20 62 13 189/95 (126) 94 06/11/17 10:00 62 06/11/17 10:00 99.9 62 23 97 06/11/17 09:02 96 50 06/11/17 09:02 50 06/11/17 09:00 89.6 66 16 178/86 (116) 95 06/11/17 08:02 99.7 79 19 157/74 (101) 98 06/11/17 08:00 40 06/11/17 08:00 84 06/11/17 07:01 97.7 65 15 92/55 (67) 92 06/11/17 06:46 97 50 06/11/17 06:00 80 06/11/17 06:00 99.0 68 24 125/61 (82) 06/11/17 05:00 99.7 86 22 137/65 (89) 93 06/11/17 04:00 99.5 78 20 163/73 (103) 96 06/11/17 04:00 40 06/11/17 04:00 78 06/11/17 02:54 100 50 06/11/17 02:00 66 06/11/17 00:00 99.5 83 22 126/71 (89) 99 06/11/17 00:00 40 06/11/17 00:00 83 06/10/17 22:00 62 06/10/17 20:00 40 06/10/17 20:00 99.7 78 22 127/69 (88) 100 06/10/17 20:00 109 06/10/17 19:54 97 60 06/10/17 19:00 99.5 74 29 118/62 (80) 97 06/10/17 18:00 57 06/10/17 18:00 100.0 57 16 129/67 (87) 92 06/10/17 17:00 100.6 67 17 156/76 (102) 95 06/10/17 16:00 75 06/10/17 16:00 100.6 75 24 182/90 (120) 98 06/10/17 16:00 40 06/10/17 15:00 100.9 72 16 195/93 (127) 97 06/10/17 15:00 98 60 I/O 06/10/17 06/10/17 06/10/17 06/11/17 06/11/17 06/11/17 07:00 15:00 23:00 07:00 15:00 23:00 Intake Total 1762 ml 757 ml 1295 ml 1051 ml Output Total 900 ml 375 ml 1200.0 ml 550 ml 0 ml Balance 862 ml 382 ml 95.0 ml 501 ml 0 ml Intake IV Total 661 ml 433 ml 328 ml 200 ml Tube Feeding 601 ml 324 ml 467 ml 351 ml Other 500 ml 500 ml 500 ml Output Urine Total 900 ml 375 ml 1200 ml 550 ml Tube Feeding Residual Discard 0 ml 0 ml 0 ml # Bowel Movements 1 0 1 1 Result Diagram: 06/11/1783906/11/1740 Objective Remarks GENERAL: SKIN: Warm and dry. HEAD: Atraumatic. Normocephalic. EYES: Pupils equal and round. No scleral icterus. No injection or drainage. ENT: No nasal bleeding or discharge. Mucous membranes pink and moist. NECK: Trachea midline. No JVD. CARDIOVASCULAR: Regular rate and rhythm. RESPIRATORY: No accessory muscle use. SCATTERED RHONCHI. GASTROINTESTINAL: Abdomen soft, non-tender, nondistended. Hepatic and splenic margins not palpable. MUSCULOSKELETAL: Extremities without clubbing, cyanosis, or edema. No obvious deformities. NEUROLOGICAL: Awake and alert. No obvious cranial nerve deficits. Motor grossly within normal limits. Five out of 5 muscle strength in the arms and legs. Normal speech. PSYCHIATRIC: Appropriate mood and affect; insight and judgment normal. Assessment and Plan Assessment and Plan RESPIRATORY FAILURE COPD PNA PLAN VENT SUPPORT WEAN TOLERATED BRONCHODILATORS PULM. TOILET f/u cxray Marcos Rodrígueze MD Jun 11, 2017 14:16
[2017-06-11] MEDS: VANCOMYCIN INJ 1,500 MG in SODIUM CHLORID 0.9% 500 ML INJ 500 ML IV SCH (14:19)
--- NOTE | 2017-06-11 15:16 | PD.ID.CON ---
History of Present Illness Service ID Consult Requested By Dr Bradley Reason for Consult leukocytosis, PNA Primary Care Physician Adonay Clark M.D. Diagnoses: History of Present Illness A 61-year-old male with a history of COPD, hypertension, hyperlipidemia, CVA, schizoaffective disorder, bipolar disorder, GERD, renal failure, and arthritis [facility]. H/o right lower lobe pneumonia in mid May. Head CT w/o acute findings Chest x-ray shows consistent with possible pneumonia. Within 24 hrs pt was emergently intubated He did not tolerate CPAP trials and cont to remain sedated and intubated. He spiked fever to Tmax 101.1 pt now has worsening leukocytosis up to 18 K and increasing O2 requirements 2-3 BMs/day Review of Systems ROS Limitations: Clinical Condition, Intubated, Altered Mental Status, Unresponsive Past Family Social History Allergies: Coded Allergies: hydrochlorothiazide (Unverified Allergy, Intermediate, EFFECTS HIS SODIUM LEVEL, 02/12/17) PT STATES HE IS NOT ALLERGIC codeine (Unverified Adverse Reaction, Severe, 02/12/17) PT STATES HE IS NOT ALLERGIC Past Medical History Patient is a poor historian with altered mental status and the following is obtained from the medical record: COPD Hypertension Hyperlipidemia CVA Schizoaffective disorder Bipolar disorder GERD Acute renal failure Arthritis Alcohol withdrawal seizures . Past Surgical History Patient is a poor historian with altered mental status and the following is obtained from the medical record: Left partial pneumonectomy Left hip surgery Active Ordered Medications Medications where reviewed in EMR Antibiotics Include: vancomycin zosyn Family History Patient is a poor historian with altered mental status and the following is unable to be obtained . Social History Patient is a poor historian with altered mental status and the following is obtained from the medical record: Tobacco: History of tobacco abuse for many years Alcohol: History of alcohol abuse Physical Exam Vital Signs Vital Signs Date Time Temp Pulse Resp B/P (MAP) Pulse Ox O2 Delivery O2 Flow Rate FiO2 06/11/17 14:00 55 16 105/59 (74) 93 06/11/17 14:00 55 06/11/17 13:00 61 18 121/63 (82) 88 06/11/17 12:00 73 06/11/17 12:00 73 30 133/72 (92) 93 06/11/17 12:00 60 12/12/17 11:45 70 20 150/79 (102) 96 06/11/17 11:13 96 50 06/11/17 11:00 58 15 202/97 (132) 96 06/11/17 10:20 62 13 189/95 (126) 94 06/11/17 10:00 62 06/11/17 10:00 99.9 62 23 97 06/11/17 09:02 96 50 06/11/17 09:02 50 06/11/17 09:00 89.6 66 16 178/86 (116) 95 06/11/17 08:02 99.7 79 19 157/74 (101) 98 06/11/17 08:00 40 06/11/17 08:00 84 06/11/17 07:01 97.7 65 15 92/55 (67) 92 06/11/17 06:46 97 50 06/11/17 06:00 80 06/11/17 06:00 99.0 68 24 125/61 (82) 06/11/17 05:00 99.7 86 22 137/65 (89) 93 06/11/17 04:00 99.5 78 20 163/73 (103) 96 06/11/17 04:00 40 06/11/17 04:00 78 06/11/17 02:54 100 50 06/11/17 02:00 66 06/11/17 00:00 99.5 83 22 126/71 (89) 99 06/11/17 00:00 40 06/11/17 00:00 83 06/10/17 22:00 62 06/10/17 20:00 40 06/10/17 20:00 99.7 78 22 127/69 (88) 100 06/10/17 20:00 109 06/10/17 19:54 97 60 06/10/17 19:00 99.5 74 29 118/62 (80) 97 06/10/17 18:00 57 06/10/17 18:00 100.0 57 16 129/67 (87) 92 06/10/17 17:00 100.6 67 17 156/76 (102) 95 06/10/17 16:00 75 06/10/17 16:00 100.6 75 24 182/90 (120) 98 06/10/17 16:00 40 Physical Exam CONSTITUTIONAL/GENERAL: This is an adequately nourished patient, in no apparent distress. TUBES/LINES/DRAINS: SKIN: No jaundice, rashes, or lesions. Skin temperature appropriate. Not diaphoretic. HEAD: Atraumatic. Normocephalic. EYES: Pupils equal and round and reactive. Extraocular motions intact. No scleral icterus. No injection or drainage. Fundi not examined. ENT: Hearing was not tested Nose without bleeding or purulent drainage. Orally intubated NECK: Trachea midline. Supple, nontender. CARDIOVASCULAR: Regular rate and rhythm without murmurs, gallops, or rubs. No JVD. Peripheral pulses symmetric. RESPIRATORY/CHEST: Symmetric, unlabored respirations. Clear to auscultation. Breath sounds equal bilaterally. No wheezes, rales, or rhonchi. GASTROINTESTINAL: Abdomen soft, + reaction to palpation (grimacin), quite distended. No hepato-splenomegaly, or palpable masses. No guarding. Bowel sounds present, hyperactive . GENITOURINARY: Without palpable bladder distension. Donahue catheter in place with clear yellow MUSCULOSKELETAL: Extremities without clubbing, cyanosis, or edema. No joint tenderness or effusion noted. No calf tenderness. No mottling or clubbing. LYMPHATICS: No palpable cervical or supraclavicular adenopathy. NEUROLOGICAL: sedated essentially unresponsive PSYCHIATRIC: unable to assess Laboratory Laboratory Tests Test 06/11/17 08:40 White Blood Count 18.1 Red Blood Count 4.22 Hemoglobin 12.7 Hematocrit 38.3 Mean Corpuscular Volume 90.7 Mean Corpuscular Hemoglobin 30.0 Mean Corpuscular Hemoglobin Concent 33.1 Red Cell Distribution Width 14.5 Platelet Count 159 Mean Platelet Volume 8.7 Neutrophils (%) (Auto) 90.6 Lymphocytes (%) (Auto) 3.3 Monocytes (%) (Auto) 5.9 Eosinophils (%) (Auto) 0.0 Basophils (%) (Auto) 0.2 Neutrophils # (Auto) 16.4 Lymphocytes # (Auto) 0.6 Monocytes # (Auto) 1.1 Eosinophils # (Auto) 0.0 Basophils # (Auto) 0.0 CBC Comment AUTO DIFF Differential Total Cells Counted 100 Neutrophils % (Manual) 75 Band Neutrophils % 13 Lymphocytes % 4 Monocytes % 3 Neutrophils # (Manual) 16.8 Metamyelocytes 2 Myelocytes 3 Differential Comment FINAL DIFF MANUAL Toxic Granulation 1+ Toxic Vacuolation PRESENT Platelet Estimate NORMAL Platelet Morphology Comment NORMAL Blood Urea Nitrogen 40 Creatinine 0.80 Random Glucose 168 Calcium Level 8.7 Sodium Level 142 Potassium Level 4.2 Chloride Level 104 Carbon Dioxide Level 32.6 Anion Gap 5 Estimat Glomerular Filtration Rate 99 Date/Time Source Procedure Growth Status 06/10/17 13:00 Blood Peripheral Aerobic Blood Culture - Preliminary NO GROWTH IN 1 DAY Resulted 06/10/17 13:00 Blood Peripheral Anaerobic Blood Culture - Preliminary NO GROWTH IN 1 DAY Resulted 06/10/17 13:20 Sputum Endotracheal Gram Stain - Final Resulted 06/10/17 13:20 Sputum Endotracheal Sputum Culture - Preliminary HEAVY GROWTH NORMAL RESPIRATORY RUBI... Resulted 06/10/17 12:45 Urine Catheterized Urine Urine Culture - Preliminary NO GROWTH IN 24 HOURS. Resulted Result Diagram: 06/11/17 0840 06/11/17 0840 Imaging Last Impressions Chest X-Ray 06/09/17 0000 Signed Impressions: Service Date/Time: Friday, June 09, 2017 09:56 - CONCLUSION: No significant change lines and tubes or basilar predominant bilateral consolidation. Arvind Nur MD Head CT 06/04/17 0000 Signed Impressions: Service Date/Time: Sunday, June 04, 2017 18:46 - CONCLUSION: 1. No significant change compared to 06/03/17. 2. No acute infarct, acute hemorrhage , mass effect or extra-axial fluid collection. 3. Scattered old lacunar infarcts within the bilateral basal ganglia. 4. Mild periventricular and subcortical white matter small vessel ischemic changes bilaterally. 5. Old right posterior parietal infarct. 6. Chronic opacification of right mastoid air cells. Mckay Stone MD Chest CT 06/04/17 0000 Signed Impressions: Service Date/Time: Sunday, June 04, 2017 18:49 - CONCLUSION: 1. Right mid lung field and posterior bibasilar patchiness consistent with probable areas of pneumonia and/or atelectasis. Clinical correlation is recommended. 2. Tiny bilateral pleural effusions. 3. Cardiomegaly and coronary artery calcifications. 4. Minimal scattered emphysematous changes bilaterally. Mckay Stone MD Assessment and Plan Assessment and Plan Mental satus change, PNA, E.coli Acute VDRF Multiple med problems worsning leukocytosis source: worsening PNA also consicder intar abd UA nos cw infx Abdominal distention + levaquin use on this admission; will chk for C.diff cont broad spectrum abx: chandrakant burrows for now will adjust abx per clx reports KUB (abd distention), fever CXR in am Ml Wiseman MD Jun 11, 2017 15:16
--- NOTE | 2017-06-11 15:24 | RADRPT ---
EXAM DATE/TIME: 06/11/2017 14:42 [facility] COMPARISON: CHEST SINGLE AP, June 09, 2017, 9:56. INDICATIONS : Pneumonia. MEDICAL HISTORY : Hypertension. Stroke. Seizures. SURGICAL HISTORY : None. ENCOUNTER: Subsequent ACUITY: 1 week PAIN SCORE: Non-responsive. LOCATION: Bilateral chest FINDINGS: Stable ETT and NGT coursing beyond the GE junction with tip of the image. Redemonstration of patchy b ibasilar airspace opacities. Cardiomediastinal contours are stable. Remainder of the exam is unchange d. CONCLUSION: 1. Stable bilateral patchy lower lung zone airspace disease. 2. No significant interval change. Shan Davis MD on June 11, 2017 at 15:21 Board Certified Radiologist. This report was verified electronically.
[2017-06-11] MEDS: ENOXAPARIN SODIUM 40 MG/0.4 ML SYRINGE SQ SCH (17:04)
[2017-06-11] MEDS: fentaNYL DRIP 250 ML IV PRN (17:04)
--- NOTE | 2017-06-11 21:09 | RADRPT ---
EXAM DATE/TIME: 06/11/2017 19:52 [facility] COMPARISON: No previous studies available for comparison. INDICATIONS : Distention. MEDICAL HISTORY : None. SURGICAL HISTORY : None. ENCOUNTER: Initial ACUITY: 1 day PAIN SCORE: 0/10 LOCATION: Bilateral abdomen FINDINGS: Supine view of the abdomen was performed. There is gaseous distention of large bowel. No free air. Pr evious left hip replacement. Rectal temperature probe present. Advanced arthropathy right hip. CONCLUSION: 1. Mild gaseous distention of colon. NG tip in stomach. Rectal temperature probe present. Humphrey Weston MD on June 11, 2017 at 21:06 Board Certified Radiologist. This report was verified electronically.
[2017-06-11] MEDS: BENZTROPINE MESYLATE 1 MG TAB PO SCH (22:54)
[2017-06-11] MEDS: DONEPEZIL HCL 5 MG TAB PO SCH (22:54)
[2017-06-11] MEDS: TAMSULOSIN HCL 0.4 MG CAP PO SCH (22:54)
[2017-06-11] MEDS: ATORVASTATIN 40 MG TAB PO SCH (22:55)
[2017-06-12] VITALS (23 sets, daily range): BP systolic 116–161; BP diastolic 63–84; PULSE 53–102; RESP 9–21; TEMP 98.6–100; O2SAT 93–100
[2017-06-12] MEDS: RESP: ALBUTEROL 2.5 MG/IPRATROPIUM 0.5 MG NEB (SCH) NEB ×6 (00:45→21:44)
[2017-06-12] MEDS: INSULIN NovoLIN REGULAR SUPPLEMENTAL SCALE SQ SCH ×6 (02:00→23:06)
--- NOTE | 2017-06-12 03:33 | RADRPT ---
EXAM DATE/TIME: 06/12/2017 03:12 [facility] COMPARISON: CHEST SINGLE AP, June 11, 2017, 14:42. INDICATIONS : Shortness of breath. MEDICAL HISTORY : Hepatitis C. Chronic obstructive pulmonary disease. Hypertension. Stroke. Seizures SURGICAL HISTORY : None. ENCOUNTER: Subsequent ACUITY: 1 week PAIN SCORE: Non-responsive. LOCATION: Bilateral chest FINDINGS: ET tube tip above the nicole. Gastric tube traverses the field of view. Patchy airspace opacities i n the central and lower lungs bilaterally similar in severity to prior. Both hemidiaphragms remain w ell delineated. The heart is normal in size. CONCLUSION: Stable central and lower lung air space infiltrates. Yuri Streeter MD on June 12, 2017 at 3:31 Board Certified Radiologist. This report was verified electronically.
[2017-06-12] MEDS: CHLORHEXIDINE GLUCONATE 2 % 1 PACK (2 CLOTHS) TOP SCH (04:00)
[2017-06-12] MEDS: PROPOFOL 1000 MG/100 ML INJ 100 ML IV PRN ×3 (04:17→22:57)
[2017-06-12] MEDS: PIPERACIL-TAZO 4.5 GM PREMIX 100 ML IV SCH ×4 (05:52→23:03)
[2017-06-12] MEDS: FREE WATER G-TUBE SCH ×3 (05:52→20:48)
[2017-06-12] MEDS: methylPREDNISolone SOD SUCC 40 MG/1 ML VIAL IV PUSH SCH ×2 (05:52→20:47)
[2017-06-12 07:09] LABS: AUTOMATED NEUTROPHIL # 15.1 TH/MM3 (1.8-7.7); BASOPHIL % 0.2 % (0.0-2.0); HEMATOCRIT 36.5 % (39.0-51.0); HEMOGLOBIN 12.1 GM/DL (13.0-17.0); LYMPH % 3.9 % (9.0-44.0); LYMPHOCYTE # 0.6 TH/MM3 (1.0-4.8); MEAN CELL VOLUME 90.3 FL (80.0-100.0); MEAN CORPUSCULAR HGB CONC 33.2 % (32.0-36.0); MEAN PLATELET VOLUME 8.6 FL (7.0-11.0); MONO % 4.4 % (0.0-8.0); MONOCYTE # 0.7 TH/MM3 (0-0.9); NEUT % 91.5 % (16.0-70.0); PLATELET COUNT 151 TH/MM3 (150-450); RED BLOOD COUNT 4.04 MIL/MM3 (4.50-5.90); RED CELL DISTRIBUTION WIDTH 14.5 % (11.6-17.2); WHITE BLOOD COUNT 16.5 TH/MM3 (4.0-11.0)
[2017-06-12 07:47] LABS: BICARBONATE 30.5 MEQ/L (21.0-32.0); CREATININE 0.9 MG/DL (0.60-1.30)
[2017-06-12] MEDS: fentaNYL DRIP 250 ML IV PRN (07:56)
[2017-06-12] MEDS: FAMOTIDINE 20 MG TAB PO SCH ×2 (07:57→20:48)
[2017-06-12] MEDS: VENLAFAXINE HCL XR 75 MG CAP PO SCH (07:57)
[2017-06-12] MEDS: amLODIPine BESYLATE 5 MG TAB PO SCH (07:57)
[2017-06-12] MEDS: VANCOMYCIN INJ 1,500 MG in SODIUM CHLORID 0.9% 500 ML INJ 500 ML IV SCH (07:58)
[2017-06-12] MEDS: SODIUM CHLORIDE 0.9% FLUSH 10 ML FLUSH IV FLUSH SCH ×2 (07:58→20:47)
[2017-06-12] MEDS: CHLORHEXIDINE 0.12% (ORAL KIT) 15 ML CUP MT SCH ×2 (07:59→20:48)
[2017-06-12 08:46] LABS: BANDS 6 % (0-6); LYMPHOCYTES 6 % (9-44); METAMYELOCYTES 2 % (0-1); NEUTROPHIL # MANUAL DIFF 15.2 TH/MM3 (1.8-7.7); PLASMA CELLS 2 % (0-0); POLYS (SEG NEUTROPHILS) 84 % (16-70)
[2017-06-12] MEDS: DEXMEDETOMIDINE INJ 1,000 MCG in SODIUM CHLOR 0.9% 250 ML INJ 240 ML IV PRN ×2 (10:12→22:58)
--- NOTE | 2017-06-12 10:35 | HHI.CCPN ---
Subjective Remarks/Hospital Course 06/04: Mr. Reilly is a 61-year-old male with a history of COPD, hypertension, hyperlipidemia, CVA, schizoaffective disorder, bipolar disorder, GERD, renal failure, and arthritis who presented to the emergency room on 06/03/2017 from a residential facility for evaluation of altered mental status. Upon review of the medical records from the residential facility, it is noted he had a right lower lobe pneumonia diagnosed mid May. Head CT showed no acute infarct, acute hemorrhage, mass effect, or extra-axial fluid collection but scattered old lacunar infarcts within the bilateral basal ganglia. Mild periventricular and subcortical white matter small vessel ischemic changes bilaterally. Chest x-ray shows scattered bibasilar patchiness consistent with possible pneumonia. Per documentation : While in the ER, patient was in moderate respiratory distress with tachypnea and utilization of accessory abdominal muscles to breathe. His lung sounds are bilaterally congested and he is confused and a poor historian. His speech is slightly slurred but this is not a new finding. He was noted to be on 5 L nasal cannula with oxygen saturation of 94% in the emergency room. Patient was admitted to the ICU by the hospitalist service. He was initiated on heparin drip for suspicion of PE. He was also noted to have an elevated CPK and creatinine. His blood pressures were running high overnight. This afternoon patient developed worsening agitation and disorientation and confusion. His heparin was stopped earlier by Dr. Garcia due to low suspicion for PE. Patient developed worsening respiration status with respirations in the 30s and O2 sats in the mid 80s. Critical care medicine was consulted. Patient was emergently intubated by Dr. Elvira Gutierrez and I subsequently took over patient care. When I evaluated the patient he had been sedated for the intubation and is being placed on mechanical ventilation. History was obtained by discussion with Dr. Garcia, Dr. Gutierrez and ICU nursing staff as well as documentation in the chart. 06/05: Remains sedated, orally intubated on mechanical ventilation. 06/06: Sedated, orally intubated on mechanical ventilation. Failed C Pap trial today. Got extremely anxious on lightening sedation. 06/07 No events overnight. Sedated and intubated. Afebrile. 06/08 No events overnight. Sedated with Diprivan, Fentanyl and intubated. 06/09 Patient remains sedated and intubated. Afebrile.Did not tolerate CPAP trials yesterday. 06/10 Patient is sedated with Fentanyl and Diprivan. Afebrile. Did not tolerate CPAP yesterday as he became restless, agitated and tachycardic. 06/11 Patient remains sedated and intubated. Spiked fever with Tmax 101.1 06/12 No events overnight. Sedated and intubated. Afebrile. Objective Vital Signs Date Time Temp Pulse Resp B/P (MAP) Pulse Ox O2 Delivery O2 Flow Rate FiO2 06/12/17 09:24 97 60 06/12/17 08:00 84 06/12/17 08:00 98.6 17 135/76 (95) 06/12/17 02:57 Ventilator Intake and Output 06/12/17 06/12/17 06/13/17 08:00 16:00 00:00 Intake Total 1300 ml Output Total 600 ml Balance 700 ml Result Diagram: 06/12/17 0635 06/12/17 0655 Other Results Microbiology Date/Time Source Procedure Growth Status 06/10/17 13:20 Sputum Endotracheal Gram Stain - Final Complete 06/10/17 13:20 Sputum Endotracheal Sputum Culture - Final HEAVY GROWTH NORMAL RESPIRATORY RUBI Complete 06/10/17 12:45 Urine Catheterized Urine Urine Culture - Final NO GROWTH IN 48 HOURS. Complete Imaging Last Impressions Chest X-Ray 06/09/17 0000 Signed Impressions: Service Date/Time: Friday, June 09, 2017 09:56 - CONCLUSION: No significant change lines and tubes or basilar predominant bilateral consolidation. Arvind Nur MD Head CT 06/04/17 0000 Signed Impressions: Service Date/Time: Sunday, June 04, 2017 18:46 - CONCLUSION: 1. No significant change compared to 06/03/17. 2. No acute infarct, acute hemorrhage , mass effect or extra-axial fluid collection. 3. Scattered old lacunar infarcts within the bilateral basal ganglia. 4. Mild periventricular and subcortical white matter small vessel ischemic changes bilaterally. 5. Old right posterior parietal infarct. 6. Chronic opacification of right mastoid air cells. Mckay Stone MD Chest CT 06/04/17 0000 Signed Impressions: Service Date/Time: Sunday, June 04, 2017 18:49 - CONCLUSION: 1. Right mid lung field and posterior bibasilar patchiness consistent with probable areas of pneumonia and/or atelectasis. Clinical correlation is recommended. 2. Tiny bilateral pleural effusions. 3. Cardiomegaly and coronary artery calcifications. 4. Minimal scattered emphysematous changes bilaterally. Mckay Stone MD Objective Remarks GENERAL: Patient is 61 intubated and sedated SKIN: Warm and dry. HEAD: Normocephalic. EYES: No scleral icterus. No injection or drainage. NECK: Supple, trachea midline. No JVD or lymphadenopathy. CARDIOVASCULAR: Regular rate and rhythm without murmurs, gallops, or rubs. RESPIRATORY: Breath sounds equal bilaterally. No accessory muscle use. GASTROINTESTINAL: Abdomen soft, non-tender, nondistended. MUSCULOSKELETAL: No cyanosis, or edema. Neuro: sedated A/P Assessment and Plan 61-year-old male with: Encephalopathy Acute respiratory failure requiring mechanical ventilation COPD exacerbation Suspected pneumonia Rhabdomyolysis ROSENDO/ CKD Uncontrolled hypertension hyperlipidemia CVA bipolar disorder GERD arthritis Schizoaffective disorder/bipolar disorder History of alcohol abuse Plan: Neuro: On Sedation with propofol/fentanyl gtt., daily sedation vacation. Follow neuro status. CT head negative for any bleed and showed old lacunar infarcts. On Aricept and Cogentin Precedex drip to facilitate with weaning trials. CV: Monitor HR and BP keep MAP>65mmHg On Lopressor 50mg Q12 .on Lipitor. Norvasc 5mg daily 2-D echo with normal LV/RV function Pulmo: Intubated and placed on mechanical ventilation on 06/04. Vent bundle, bronchodilators, decrease solumederol 40mg Q12 SBT daily as cordell. GI/liver: Continue tube feeds-Glucerna 1.5@60ml/hr KUB abdomen: Mild gaseous distention Renal/: Monitor renal function, electrolytes replacement per protocol. ID: On IV Zosyn, Vanco, monitor for signs of infections ( Fever, WBC) Sputum cx: E.coli on 06/04, pancultured 06/10 ( Blood, sputum, urine)- NGTD ID is following. Diurese with Lasix 40mg x1 Endocrine: SSI for glycemic control as needed. Heme: Follow CBC. Prophylaxis: Pepcid/SCDs. SQ Lovenox level 3 Katina Marcos MD Jun 12, 2017 10:35
[2017-06-12] MEDS ORDERED: DEXTROSE 50% IN WATER 50 ML VIAL(D50) IV PUSH PRN (10:45)
[2017-06-12] MEDS ORDERED: GLUCAGON 1 MG/ML VIAL OTHER PRN (10:45)
[2017-06-12] MEDS ORDERED: FUROSEMIDE 40 MG/4 ML VIAL IV PUSH ONE (12:10)
[2017-06-12] MEDS: ENOXAPARIN SODIUM 40 MG/0.4 ML SYRINGE SQ SCH (17:53)
--- NOTE | 2017-06-12 19:01 | HHI.PR ---
Subjective Remarks ON THE VENTILATOR sedated Objective Vital Signs Date Time Temp Pulse Resp B/P (MAP) Pulse Ox O2 Delivery O2 Flow Rate FiO2 06/12/17 18:00 59 06/12/17 17:00 100.0 60 16 128/64 (85) 93 06/12/17 17:00 60 06/12/17 16:31 98 50 06/12/17 16:00 60 06/12/17 16:00 72 06/12/17 16:00 99.9 72 21 159/84 (109) 100 06/12/17 15:00 99.5 63 14 152/79 (103) 96 06/12/17 15:00 63 06/12/17 14:00 99.5 64 9 158/78 (104) 93 06/12/17 14:00 64 06/12/17 13:01 74 06/12/17 13:01 99.3 74 19 155/74 (101) 95 06/12/17 12:00 60 06/12/17 12:00 66 06/12/17 12:00 99.5 66 11 134/67 (89) 95 06/12/17 11:36 96 60 06/12/17 10:00 102 06/12/17 09:24 97 60 06/12/17 08:00 84 06/12/17 08:00 60 06/12/17 08:00 98.6 84 17 135/76 (95) 97 06/12/17 06:00 86 06/12/17 04:00 99.3 89 21 161/78 (105) 97 06/12/17 04:00 60 06/12/17 04:00 89 06/12/17 03:51 96 60 06/12/17 02:57 96 Ventilator 60 06/12/17 02:00 76 06/12/17 00:45 94 60 06/12/17 00:00 53 06/12/17 00:00 60 06/12/17 00:00 99.0 53 16 116/63 (80) 95 06/11/17 22:00 52 06/11/17 20:47 94 60 06/11/17 20:00 77 06/11/17 20:00 60 06/11/17 20:00 99.7 77 20 158/81 (106) 94 I/O 12/12/17 1206/11/17 06/12/17 06/12/17 06/12/17 07:00 15:00 23:00 07:00 15:00 23:00 Intake Total 1051 ml 265 ml 2258 ml 1400 ml 1284 ml Output Total 550 ml 0 ml 700.0 ml 600 ml 2650 ml Balance 501 ml 265 ml 1558.0 ml 800 ml -1366 ml Intake Oral 0 ml IV Total 200 ml 265 ml 1248 ml 200 ml Tube Feeding 351 ml 510 ml 700 ml 684 ml Other 500 ml 500 ml 500 ml 600 ml Output Urine Total 550 ml 700 ml 600 ml 2650 ml Tube Feeding Residual Discard 0 ml 0 ml # Bowel Movements 1 3 2 1 Result Diagram: 06/12/1735 06/12/17 0655 Objective Remarks GENERAL: SKIN: Warm and dry. HEAD: Atraumatic. Normocephalic. EYES: Pupils equal and round. No scleral icterus. No injection or drainage. ENT: No nasal bleeding or discharge. Mucous membranes pink and moist. NECK: Trachea midline. No JVD. CARDIOVASCULAR: Regular rate and rhythm. RESPIRATORY: No accessory muscle use. SCATTERED RHONCHI. GASTROINTESTINAL: Abdomen soft, non-tender, nondistended. Hepatic and splenic margins not palpable. MUSCULOSKELETAL: Extremities without clubbing, cyanosis, or edema. No obvious deformities. NEUROLOGICAL: Awake and alert. No obvious cranial nerve deficits. Motor grossly within normal limits. Five out of 5 muscle strength in the arms and legs. Normal speech. PSYCHIATRIC: Appropriate mood and affect; insight and judgment normal. Assessment and Plan Assessment and Plan RESPIRATORY FAILURE COPD PNA PLAN VENT SUPPORT WEAN TOLERATED BRONCHODILATORS PULM. TOILET Marcos Rodríguez MD Jun 12, 2017 19:01
[2017-06-12] MEDS: TAMSULOSIN HCL 0.4 MG CAP PO SCH (20:46)
[2017-06-12] MEDS: ATORVASTATIN 40 MG TAB PO SCH (20:46)
[2017-06-12] MEDS: DONEPEZIL HCL 5 MG TAB PO SCH (20:46)
[2017-06-12] MEDS: BENZTROPINE MESYLATE 1 MG TAB PO SCH (20:47)
[2017-06-13] VITALS (18 sets, daily range): BP systolic 127–139; BP diastolic 66–107; PULSE 52–103; RESP 15–39; TEMP 98–100; O2SAT 90–97
[2017-06-13] MEDS: RESP: ALBUTEROL 2.5 MG/IPRATROPIUM 0.5 MG NEB (SCH) NEB ×7 (01:37→23:17)
[2017-06-13] MEDS ORDERED: PHARMACY ORDERED LAB ONE ×2 (01:45→19:45)
[2017-06-13] MEDS: VANCOMYCIN INJ 1,500 MG in SODIUM CHLORID 0.9% 500 ML INJ 500 ML IV SCH ×2 (01:54→22:07)
[2017-06-13] MEDS: CHLORHEXIDINE GLUCONATE 2 % 1 PACK (2 CLOTHS) TOP SCH (04:00)
[2017-06-13] MEDS: PIPERACIL-TAZO 4.5 GM PREMIX 100 ML IV SCH ×3 (05:34→16:53)
[2017-06-13] MEDS: FREE WATER G-TUBE SCH ×3 (05:37→22:00)
[2017-06-13] MEDS: INSULIN NovoLIN REGULAR SUPPLEMENTAL SCALE SQ SCH ×5 (06:01→20:00)
[2017-06-13 06:56] LABS: AUTOMATED NEUTROPHIL # 13.3 TH/MM3 (1.8-7.7); BASOPHIL % 0.2 % (0.0-2.0); EOSINOPHIL % 0.1 % (0.0-4.0); HEMATOCRIT 37.4 % (39.0-51.0); HEMOGLOBIN 12.2 GM/DL (13.0-17.0); LYMPH % 7.8 % (9.0-44.0); LYMPHOCYTE # 1.2 TH/MM3 (1.0-4.8); MEAN CELL VOLUME 90.4 FL (80.0-100.0); MEAN CORPUSCULAR HEMOGLOBIN 29.4 PG (27.0-34.0); MEAN CORPUSCULAR HGB CONC 32.5 % (32.0-36.0); MEAN PLATELET VOLUME 8.6 FL (7.0-11.0); MONO % 7.3 % (0.0-8.0); MONOCYTE # 1.1 TH/MM3 (0-0.9); NEUT % 84.6 % (16.0-70.0); PLATELET COUNT 153 TH/MM3 (150-450); RED BLOOD COUNT 4.13 MIL/MM3 (4.50-5.90); RED CELL DISTRIBUTION WIDTH 14.8 % (11.6-17.2); WHITE BLOOD COUNT 15.7 TH/MM3 (4.0-11.0)
[2017-06-13 07:08] LABS: BICARBONATE 31.9 MEQ/L (21.0-32.0); CALCIUM 8.2 MG/DL (8.5-10.1); CREATININE 0.87 MG/DL (0.60-1.30)
[2017-06-13] MEDS: CHLORHEXIDINE 0.12% (ORAL KIT) 15 ML CUP MT SCH ×2 (08:00→22:08)
[2017-06-13 08:23] LABS: BANDS 9 % (0-6); LYMPHOCYTES 10 % (9-44); MONOCYTES 7 % (0-8); MYELOCYTES 2 % (0-0); POLYS (SEG NEUTROPHILS) 72 % (16-70)
[2017-06-13 08:24] LABS: TOXIC GRANULATION 1+ (NORMAL)
[2017-06-13] MEDS: amLODIPine BESYLATE 5 MG TAB PO SCH (09:00)
[2017-06-13] MEDS: VENLAFAXINE HCL XR 75 MG CAP PO SCH (10:17)
[2017-06-13] MEDS: FAMOTIDINE 20 MG TAB PO SCH ×2 (10:17→22:09)
[2017-06-13] MEDS: methylPREDNISolone SOD SUCC 40 MG/1 ML VIAL IV PUSH SCH ×2 (10:18→22:09)
[2017-06-13] MEDS: SODIUM CHLORIDE 0.9% FLUSH 10 ML FLUSH IV FLUSH SCH ×2 (10:19→22:08)
--- NOTE | 2017-06-13 10:33 | HHI.CCPN ---
Subjective Remarks/Hospital Course 06/04: Mr. Reilly is a 61-year-old male with a history of COPD, hypertension, hyperlipidemia, CVA, schizoaffective disorder, bipolar disorder, GERD, renal failure, and arthritis who presented to the emergency room on 06/03/2017 from a custodial facility for evaluation of altered mental status. Upon review of the medical records from the custodial facility, it is noted he had a right lower lobe pneumonia diagnosed mid May. Head CT showed no acute infarct, acute hemorrhage, mass effect, or extra-axial fluid collection but scattered old lacunar infarcts within the bilateral basal ganglia. Mild periventricular and subcortical white matter small vessel ischemic changes bilaterally. Chest x-ray shows scattered bibasilar patchiness consistent with possible pneumonia. Per documentation : While in the ER, patient was in moderate respiratory distress with tachypnea and utilization of accessory abdominal muscles to breathe. His lung sounds are bilaterally congested and he is confused and a poor historian. His speech is slightly slurred but this is not a new finding. He was noted to be on 5 L nasal cannula with oxygen saturation of 94% in the emergency room. Patient was admitted to the ICU by the hospitalist service. He was initiated on heparin drip for suspicion of PE. He was also noted to have an elevated CPK and creatinine. His blood pressures were running high overnight. This afternoon patient developed worsening agitation and disorientation and confusion. His heparin was stopped earlier by Dr. Garcia due to low suspicion for PE. Patient developed worsening respiration status with respirations in the 30s and O2 sats in the mid 80s. Critical care medicine was consulted. Patient was emergently intubated by Dr. Elvira Gutierrez and I subsequently took over patient care. When I evaluated the patient he had been sedated for the intubation and is being placed on mechanical ventilation. History was obtained by discussion with Dr. Garcia, Dr. Gutierrez and ICU nursing staff as well as documentation in the chart. 06/05: Remains sedated, orally intubated on mechanical ventilation. 06/06: Sedated, orally intubated on mechanical ventilation. Failed C Pap trial today. Got extremely anxious on lightening sedation. 06/07 No events overnight. Sedated and intubated. Afebrile. 06/08 No events overnight. Sedated with Diprivan, Fentanyl and intubated. 06/09 Patient remains sedated and intubated. Afebrile.Did not tolerate CPAP trials yesterday. 06/10 Patient is sedated with Fentanyl and Diprivan. Afebrile. Did not tolerate CPAP yesterday as he became restless, agitated and tachycardic. 06/11 Patient remains sedated and intubated. Spiked fever with Tmax 101.1 06/12 No events overnight. Sedated and intubated. Afebrile. 06/13 Patient remains intubated and sedated with Diprivan, fentanyl in addition he is on Precedex drip. T:100.0 Objective Vital Signs Date Time Temp Pulse Resp B/P (MAP) Pulse Ox O2 Delivery O2 Flow Rate FiO2 06/13/17 09:08 94 50 06/13/17 06:00 57 06/13/17 04:00 99.8 16 127/66 (86) 06/12/17 21:50 Ventilator Intake and Output 06/13/17 06/13/17 06/14/17 08:00 16:00 00:00 Intake Total 1816 ml Output Total 1400 ml Balance 416 ml Result Diagram: 06/13/17 0625 06/13/17 0625 Other Results Laboratory Tests Test 06/13/17 06:25 White Blood Count 15.7 TH/MM3 Red Blood Count 4.13 MIL/MM3 Hemoglobin 12.2 GM/DL Hematocrit 37.4 % Mean Corpuscular Volume 90.4 FL Mean Corpuscular Hemoglobin 29.4 PG Mean Corpuscular Hemoglobin Concent 32.5 % Red Cell Distribution Width 14.8 % Platelet Count 153 TH/MM3 Mean Platelet Volume 8.6 FL Neutrophils (%) (Auto) 84.6 % Lymphocytes (%) (Auto) 7.8 % Monocytes (%) (Auto) 7.3 % Eosinophils (%) (Auto) 0.1 % Basophils (%) (Auto) 0.2 % Neutrophils # (Auto) 13.3 TH/MM3 Lymphocytes # (Auto) 1.2 TH/MM3 Monocytes # (Auto) 1.1 TH/MM3 Eosinophils # (Auto) 0.0 TH/MM3 Basophils # (Auto) 0.0 TH/MM3 CBC Comment AUTO DIFF Differential Total Cells Counted 100 Neutrophils % (Manual) 72 % Band Neutrophils % 9 % Lymphocytes % 10 % Monocytes % 7 % Neutrophils # (Manual) 13.0 TH/MM3 Myelocytes 2 % Differential Comment FINAL DIFF MANUAL Toxic Granulation 1+ Platelet Estimate NORMAL Platelet Morphology Comment NORMAL Blood Urea Nitrogen 43 MG/DL Creatinine 0.87 MG/DL Random Glucose 172 MG/DL Calcium Level 8.2 MG/DL Sodium Level 145 MEQ/L Potassium Level 4.1 MEQ/L Chloride Level 108 MEQ/L Carbon Dioxide Level 31.9 MEQ/L Anion Gap 5 MEQ/L Estimat Glomerular Filtration Rate 90 ML/MIN Imaging Last Impressions Chest X-Ray 06/12/17 0000 Signed Impressions: Service Date/Time: Monday, June 12, 2017 03:12 - CONCLUSION: Stable central and lower lung air space infiltrates. Yuri Streeter MD Abdomen X-Ray 06/11/17 0000 Signed Impressions: Service Date/Time: Sunday, June 11, 2017 19:52 - CONCLUSION: 1. Mild gaseous distention of colon. NG tip in stomach. Rectal temperature probe present. Humphrey Weston MD Head CT 06/04/17 0000 Signed Impressions: Service Date/Time: Sunday, June 04, 2017 18:46 - CONCLUSION: 1. No significant change compared to 06/03/17. 2. No acute infarct, acute hemorrhage , mass effect or extra-axial fluid collection. 3. Scattered old lacunar infarcts within the bilateral basal ganglia. 4. Mild periventricular and subcortical white matter small vessel ischemic changes bilaterally. 5. Old right posterior parietal infarct. 6. Chronic opacification of right mastoid air cells. Mckay Stone MD Chest CT 06/04/17 0000 Signed Impressions: Service Date/Time: Sunday, June 04, 2017 18:49 - CONCLUSION: 1. Right mid lung field and posterior bibasilar patchiness consistent with probable areas of pneumonia and/or atelectasis. Clinical correlation is recommended. 2. Tiny bilateral pleural effusions. 3. Cardiomegaly and coronary artery calcifications. 4. Minimal scattered emphysematous changes bilaterally. Mckay Stone MD Objective Remarks GENERAL: Patient is 61 intubated and sedated SKIN: Warm and dry. HEAD: Normocephalic. EYES: No scleral icterus. No injection or drainage. NECK: Supple, trachea midline. No JVD or lymphadenopathy. CARDIOVASCULAR: Regular rate and rhythm without murmurs, gallops, or rubs. RESPIRATORY: Breath sounds equal bilaterally. No accessory muscle use. GASTROINTESTINAL: Abdomen soft, non-tender, nondistended. MUSCULOSKELETAL: No cyanosis, or edema. Neuro: sedated A/P Assessment and Plan 61-year-old male with: Encephalopathy Acute respiratory failure requiring mechanical ventilation COPD exacerbation Suspected pneumonia Rhabdomyolysis ROSENDO/ CKD Uncontrolled hypertension hyperlipidemia CVA bipolar disorder GERD arthritis Schizoaffective disorder/bipolar disorder History of alcohol abuse Plan: Neuro: On Sedation with propofol/fentanyl gtt., daily sedation vacation. Follow neuro status. CT head negative for any bleed and showed old lacunar infarcts. On Aricept and Cogentin Precedex drip to facilitate with weaning trials. CV: Monitor HR and BP keep MAP>65mmHg On Lopressor 50mg Q12 .on Lipitor. Norvasc 5mg daily 2-D echo with normal LV/RV function Pulmo: Intubated and placed on mechanical ventilation on 06/04. Vent bundle, bronchodilators, solumederol 40mg Q12 SBT daily as cordell. GI/liver: Continue tube feeds-Glucerna 1.5@60ml/hr KUB abdomen: Mild gaseous distention Renal/: Monitor renal function, electrolytes replacement per protocol. ID: On IV Zosyn, Vanco, monitor for signs of infections ( Fever, WBC) Sputum cx: E.coli on 06/04, pancultured 06/10 ( Blood, sputum, urine)- NGTD ID is following. 1 Endocrine: SSI for glycemic control as needed. Heme: Follow CBC. Prophylaxis: Pepcid/SCDs. SQ Lovenox level 3 Katina Marcos MD Jun 13, 2017 10:33
--- NOTE | 2017-06-13 14:04 | HHI.IDPN ---
Subjective Subjective Remarks Large volume diarrhea low grade fever Antibiotics zaosyn vancomycin Allergies: Coded Allergies: hydrochlorothiazide (Unverified Allergy, Intermediate, EFFECTS HIS SODIUM LEVEL, 02/12/17) PT STATES HE IS NOT ALLERGIC codeine (Unverified Adverse Reaction, Severe, 02/12/17) PT STATES HE IS NOT ALLERGIC Objective . Vital Signs Date Time Temp Pulse Resp B/P (MAP) Pulse Ox O2 Delivery O2 Flow Rate FiO2 06/13/17 12:00 103 06/13/17 12:00 98.0 103 39 139/107 (118) 90 06/13/17 12:00 50 06/13/17 10:00 75 06/13/17 09:08 94 50 06/13/17 08:00 98.9 55 16 130/70 (90) 91 06/13/17 08:00 50 06/13/17 08:00 55 06/13/17 06:00 57 06/13/17 05:07 95 60 06/13/17 04:00 99.8 68 16 127/66 (86) 97 06/13/17 04:00 67 06/13/17 04:00 60 06/13/17 02:00 62 06/13/17 01:37 96 50 06/13/17 00:00 52 06/13/17 00:00 60 06/13/17 00:00 100.0 52 16 135/73 (93) 95 06/12/17 22:00 56 06/12/17 21:50 95 Ventilator 06/12/17 21:45 96 50 06/12/17 20:00 60 06/12/17 20:00 54 06/12/17 20:00 100.0 56 16 139/71 (93) 94 06/12/17 18:00 59 06/12/17 17:00 100.0 60 16 128/64 (85) 93 06/12/17 17:00 60 06/12/17 16:31 98 50 06/12/17 16:00 60 06/12/17 16:00 72 06/12/17 16:00 99.9 72 21 159/84 (109) 100 06/12/17 15:00 99.5 63 14 152/79 (103) 96 06/12/17 15:00 63 06/12/17 14:00 99.5 64 9 158/78 (104) 93 06/12/17 14:00 64 06/13/17 06/13/17 06/14/17 14:59 22:59 06:59 Intake Total 100 ml Balance 100 ml IV Total 100 ml . Laboratory Tests Test 06/12/17 06:35 06/13/17 06:25 White Blood Count 16.5 TH/MM3 15.7 TH/MM3 Red Blood Count 4.04 MIL/MM3 4.13 MIL/MM3 Hemoglobin 12.1 GM/DL 12.2 GM/DL Hematocrit 36.5 % 37.4 % Mean Corpuscular Volume 90.3 FL 90.4 FL Mean Corpuscular Hemoglobin 30.0 PG 29.4 PG Mean Corpuscular Hemoglobin Concent 33.2 % 32.5 % Red Cell Distribution Width 14.5 % 14.8 % Platelet Count 151 TH/MM3 153 TH/MM3 Mean Platelet Volume 8.6 FL 8.6 FL Neutrophils (%) (Auto) 91.5 % 84.6 % Lymphocytes (%) (Auto) 3.9 % 7.8 % Monocytes (%) (Auto) 4.4 % 7.3 % Eosinophils (%) (Auto) 0.0 % 0.1 % Basophils (%) (Auto) 0.2 % 0.2 % Neutrophils # (Auto) 15.1 TH/MM3 13.3 TH/MM3 Lymphocytes # (Auto) 0.6 TH/MM3 1.2 TH/MM3 Monocytes # (Auto) 0.7 TH/MM3 1.1 TH/MM3 Eosinophils # (Auto) 0.0 TH/MM3 0.0 TH/MM3 Basophils # (Auto) 0.0 TH/MM3 0.0 TH/MM3 CBC Comment AUTO DIFF AUTO DIFF Differential Total Cells Counted 100 100 Neutrophils % (Manual) 84 % 72 % Band Neutrophils % 6 % 9 % Lymphocytes % 6 % 10 % Neutrophils # (Manual) 15.2 TH/MM3 13.0 TH/MM3 Metamyelocytes 2 % Differential Comment FINAL DIFF MANUAL FINAL DIFF MANUAL Plasma Cells 2 % Platelet Estimate LOW NORMAL Platelet Morphology Comment NORMAL NORMAL Monocytes % 7 % Myelocytes 2 % Toxic Granulation 1+ Laboratory Tests Test 06/12/17 06:55 06/13/17 06:25 Blood Urea Nitrogen 44 MG/DL 43 MG/DL Creatinine 0.90 MG/DL 0.87 MG/DL Random Glucose 208 MG/DL 172 MG/DL Calcium Level 8.0 MG/DL 8.2 MG/DL Sodium Level 142 MEQ/L 145 MEQ/L Potassium Level 4.3 MEQ/L 4.1 MEQ/L Chloride Level 104 MEQ/L 108 MEQ/L Carbon Dioxide Level 30.5 MEQ/L 31.9 MEQ/L Anion Gap 8 MEQ/L 5 MEQ/L Estimat Glomerular Filtration Rate 86 ML/MIN 90 ML/MIN Microbiology Date/Time Source Procedure Growth Status 06/10/17 13:20 Sputum Endotracheal Gram Stain - Final Complete 06/10/17 13:20 Sputum Endotracheal Sputum Culture - Final HEAVY GROWTH NORMAL RESPIRATORY RUBI Complete Imaging Last Impressions Chest X-Ray 06/12/17 0000 Signed Impressions: Service Date/Time: Monday, June 12, 2017 03:12 - CONCLUSION: Stable central and lower lung air space infiltrates. Yuri Streeter MD Abdomen X-Ray 06/11/17 0000 Signed Impressions: Service Date/Time: Sunday, June 11, 2017 19:52 - CONCLUSION: 1. Mild gaseous distention of colon. NG tip in stomach. Rectal temperature probe present. Humphrey Weston MD Head CT 06/04/17 0000 Signed Impressions: Service Date/Time: Sunday, June 04, 2017 18:46 - CONCLUSION: 1. No significant change compared to 06/03/17. 2. No acute infarct, acute hemorrhage , mass effect or extra-axial fluid collection. 3. Scattered old lacunar infarcts within the bilateral basal ganglia. 4. Mild periventricular and subcortical white matter small vessel ischemic changes bilaterally. 5. Old right posterior parietal infarct. 6. Chronic opacification of right mastoid air cells. Mckay Stone MD Chest CT 06/04/17 0000 Signed Impressions: Service Date/Time: Sunday, June 04, 2017 18:49 - CONCLUSION: 1. Right mid lung field and posterior bibasilar patchiness consistent with probable areas of pneumonia and/or atelectasis. Clinical correlation is recommended. 2. Tiny bilateral pleural effusions. 3. Cardiomegaly and coronary artery calcifications. 4. Minimal scattered emphysematous changes bilaterally. Mckay Stone MD Physical Exam CONSTITUTIONAL/GENERAL: This is an adequately nourished patient, in no apparent distress. TUBES/LINES/DRAINS: SKIN: No jaundice, rashes, or lesions. Skin temperature appropriate. Not diaphoretic. EYES: Pupils equal and round and reactive. Extraocular motions intact. No scleral icterus. No injection or drainage. Fundi not examined. ENT: Hearing was not tested Nose without bleeding or purulent drainage. Orally intubated NECK: Trachea midline. Supple, nontender. CARDIOVASCULAR: Regular rate and rhythm without murmurs, gallops, or rubs. No JVD. Peripheral pulses symmetric. RESPIRATORY/CHEST: Symmetric, unlabored respirations. Clear to auscultation. Breath sounds equal bilaterally. No wheezes, rales, or rhonchi. GASTROINTESTINAL: Abdomen soft, + reaction to palpation (grimacing), quite distended. No hepato-splenomegaly, or palpable masses. No guarding. Bowel sounds present, hyperactive . Incontinent of large amount of stool GENITOURINARY: Without palpable bladder distension. condom catheter in place with clear yellow MUSCULOSKELETAL: Extremities without clubbing, cyanosis, or edema. No joint tenderness or effusion noted. No calf tenderness. No mottling or clubbing. LYMPHATICS: No palpable cervical or supraclavicular adenopathy. NEUROLOGICAL: moves all 4 extremeties, awake, alert, not comunicating PSYCHIATRIC: unable to assess Assessment & Plan Remarks Assessment and Plan Mental status change, PNA, E.coli Acute VDRF Multiple med problems worsning leukocytosis source: worsening PNA also consicder intar abd UA nos cw infx Abdominal distention, diarrhea Persistent leukocytosis + levaquin use on this admission; will chk for C.diff cont broad spectrum abx: vanco, zosyn for now will adjust abx per clx reports KUB (abd distention), fever CXR in am Ml Wiseman MD Jun 13, 2017 14:04
[2017-06-13] MEDS: fentaNYL DRIP 250 ML IV PRN ×2 (15:07→16:53)
[2017-06-13] MEDS: DEXMEDETOMIDINE INJ 1,000 MCG in SODIUM CHLOR 0.9% 250 ML INJ 240 ML IV PRN ×2 (15:08→16:53)
[2017-06-13] MEDS: ENOXAPARIN SODIUM 40 MG/0.4 ML SYRINGE SQ SCH (16:53)
[2017-06-13] MEDS: ATORVASTATIN 40 MG TAB PO SCH (22:09)
[2017-06-13] MEDS: TAMSULOSIN HCL 0.4 MG CAP PO SCH (22:09)
[2017-06-13] MEDS: DONEPEZIL HCL 5 MG TAB PO SCH (22:09)
[2017-06-13] MEDS: BENZTROPINE MESYLATE 1 MG TAB PO SCH (22:10)
[2017-06-13] MEDS: PROPOFOL 1000 MG/100 ML INJ 100 ML IV PRN (23:24)
[2017-06-14] VITALS (24 sets, daily range): BP systolic 122–230; BP diastolic 59–127; PULSE 51–126; RESP 16–45; TEMP 97.3–99.8; O2SAT 79–100
[2017-06-14] MEDS: PIPERACIL-TAZO 4.5 GM PREMIX 100 ML IV SCH ×4 (00:27→16:23)
[2017-06-14] MEDS: fentaNYL DRIP 250 ML IV PRN ×4 (01:56→23:41)
[2017-06-14] MEDS: RESP: ALBUTEROL 2.5 MG/IPRATROPIUM 0.5 MG NEB (SCH) NEB ×6 (03:23→23:21)
[2017-06-14] MEDS: INSULIN NovoLIN REGULAR SUPPLEMENTAL SCALE SQ SCH ×6 (04:00→20:00)
[2017-06-14] MEDS: CHLORHEXIDINE GLUCONATE 2 % 1 PACK (2 CLOTHS) TOP SCH (04:00)
[2017-06-14] MEDS: FREE WATER G-TUBE SCH ×3 (05:22→21:38)
[2017-06-14 07:08] LABS: AUTOMATED NEUTROPHIL # 14.6 TH/MM3 (1.8-7.7); BASOPHIL % 0.1 % (0.0-2.0); HEMATOCRIT 37.2 % (39.0-51.0); HEMOGLOBIN 12.3 GM/DL (13.0-17.0); LYMPH % 4.2 % (9.0-44.0); LYMPHOCYTE # 0.7 TH/MM3 (1.0-4.8); MEAN CORPUSCULAR HEMOGLOBIN 30.2 PG (27.0-34.0); MEAN CORPUSCULAR HGB CONC 33.1 % (32.0-36.0); MEAN PLATELET VOLUME 8.5 FL (7.0-11.0); MONO % 3.6 % (0.0-8.0); MONOCYTE # 0.6 TH/MM3 (0-0.9); NEUT % 92.1 % (16.0-70.0); PLATELET COUNT 137 TH/MM3 (150-450); RED BLOOD COUNT 4.08 MIL/MM3 (4.50-5.90); RED CELL DISTRIBUTION WIDTH 14.3 % (11.6-17.2); WHITE BLOOD COUNT 15.9 TH/MM3 (4.0-11.0)
[2017-06-14] MEDS: DEXMEDETOMIDINE INJ 1,000 MCG in SODIUM CHLOR 0.9% 250 ML INJ 240 ML IV PRN (07:12)
[2017-06-14 07:34] LABS: CALCIUM 8.2 MG/DL (8.5-10.1); CREATININE 0.81 MG/DL (0.60-1.30)
[2017-06-14] MEDS: methylPREDNISolone SOD SUCC 40 MG/1 ML VIAL IV PUSH SCH ×2 (08:39→21:27)
[2017-06-14] MEDS: VENLAFAXINE HCL XR 75 MG CAP PO SCH (08:39)
[2017-06-14] MEDS: FAMOTIDINE 20 MG TAB PO SCH ×2 (08:39→21:37)
[2017-06-14] MEDS: amLODIPine BESYLATE 5 MG TAB PO SCH (08:39)
[2017-06-14] MEDS: SODIUM CHLORIDE 0.9% FLUSH 10 ML FLUSH IV FLUSH SCH ×2 (08:40→21:27)
[2017-06-14] MEDS: PROPOFOL 1000 MG/100 ML INJ 100 ML IV PRN ×2 (08:41→21:29)
[2017-06-14] MEDS: CHLORHEXIDINE 0.12% (ORAL KIT) 15 ML CUP MT SCH ×2 (08:41→21:26)
[2017-06-14 08:52] LABS: BANDS 1 % (0-6); LYMPHOCYTES 3 % (9-44); MONOCYTES 3 % (0-8); NEUTROPHIL # MANUAL DIFF 14.9 TH/MM3 (1.8-7.7); POLYS (SEG NEUTROPHILS) 92 % (16-70); PROMYELOCYTES 1 % (0-0)
[2017-06-14] MEDS ORDERED: VANCOMYCIN INJ 1,250 MG in SODIUM CHLOR 0.9% 250 ML INJ 250 ML IV SCH (09:00)
--- NOTE | 2017-06-14 10:59 | HHI.CCPN ---
Subjective Remarks/Hospital Course 06/04: Mr. Reilly is a 61-year-old male with a history of COPD, hypertension, hyperlipidemia, CVA, schizoaffective disorder, bipolar disorder, GERD, renal failure, and arthritis who presented to the emergency room on 06/03/2017 from a senior living facility for evaluation of altered mental status. Upon review of the medical records from the senior living facility, it is noted he had a right lower lobe pneumonia diagnosed mid May. Head CT showed no acute infarct, acute hemorrhage, mass effect, or extra-axial fluid collection but scattered old lacunar infarcts within the bilateral basal ganglia. Mild periventricular and subcortical white matter small vessel ischemic changes bilaterally. Chest x-ray shows scattered bibasilar patchiness consistent with possible pneumonia. Per documentation : While in the ER, patient was in moderate respiratory distress with tachypnea and utilization of accessory abdominal muscles to breathe. His lung sounds are bilaterally congested and he is confused and a poor historian. His speech is slightly slurred but this is not a new finding. He was noted to be on 5 L nasal cannula with oxygen saturation of 94% in the emergency room. Patient was admitted to the ICU by the hospitalist service. He was initiated on heparin drip for suspicion of PE. He was also noted to have an elevated CPK and creatinine. His blood pressures were running high overnight. This afternoon patient developed worsening agitation and disorientation and confusion. His heparin was stopped earlier by Dr. Garcia due to low suspicion for PE. Patient developed worsening respiration status with respirations in the 30s and O2 sats in the mid 80s. Critical care medicine was consulted. Patient was emergently intubated by Dr. Elvira Gutierrez and I subsequently took over patient care. When I evaluated the patient he had been sedated for the intubation and is being placed on mechanical ventilation. History was obtained by discussion with Dr. Garcia, Dr. Gutierrez and ICU nursing staff as well as documentation in the chart. 06/05: Remains sedated, orally intubated on mechanical ventilation. 06/06: Sedated, orally intubated on mechanical ventilation. Failed C Pap trial today. Got extremely anxious on lightening sedation. 06/07 No events overnight. Sedated and intubated. Afebrile. 06/08 No events overnight. Sedated with Diprivan, Fentanyl and intubated. 06/09 Patient remains sedated and intubated. Afebrile.Did not tolerate CPAP trials yesterday. 06/10 Patient is sedated with Fentanyl and Diprivan. Afebrile. Did not tolerate CPAP yesterday as he became restless, agitated and tachycardic. 06/11 Patient remains sedated and intubated. Spiked fever with Tmax 101.1 06/12 No events overnight. Sedated and intubated. Afebrile. 06/13 Patient remains intubated and sedated with Diprivan, fentanyl in addition he is on Precedex drip. T:100.0 06/14 Patient remains sedated and intubated. Afebrile. Did not tolerate CPAP trials yesterday as he became tahypenic, tachycardic and restless. Objective Vital Signs Date Time Temp Pulse Resp B/P (MAP) Pulse Ox O2 Delivery O2 Flow Rate FiO2 06/14/17 09:03 92 60 06/14/17 06:00 67 06/14/17 04:00 97.3 16 122/59 (80) 06/12/17 21:50 Ventilator Intake and Output 06/14/17 06/14/17 06/15/17 08:00 16:00 00:00 Intake Total 2392.7 ml Output Total 400 ml Balance 1992.7 ml Result Diagram: 06/14/1740 06/14/17 0640 Other Results Laboratory Tests Test 06/13/17 14:00 06/13/17 17:50 06/14/17 06:40 Stool C. difficile Toxin (PCR) NEGATIVE Stl C. difficile Toxin Epiderm 027 PRESUMPTIVE NEGATIVE Vancomycin Level Trough 11.7 MCG/ML White Blood Count 15.9 TH/MM3 Red Blood Count 4.08 MIL/MM3 Hemoglobin 12.3 GM/DL Hematocrit 37.2 % Mean Corpuscular Volume 91.0 FL Mean Corpuscular Hemoglobin 30.2 PG Mean Corpuscular Hemoglobin Concent 33.1 % Red Cell Distribution Width 14.3 % Platelet Count 137 TH/MM3 Mean Platelet Volume 8.5 FL Neutrophils (%) (Auto) 92.1 % Lymphocytes (%) (Auto) 4.2 % Monocytes (%) (Auto) 3.6 % Eosinophils (%) (Auto) 0.0 % Basophils (%) (Auto) 0.1 % Neutrophils # (Auto) 14.6 TH/MM3 Lymphocytes # (Auto) 0.7 TH/MM3 Monocytes # (Auto) 0.6 TH/MM3 Eosinophils # (Auto) 0.0 TH/MM3 Basophils # (Auto) 0.0 TH/MM3 CBC Comment AUTO DIFF Differential Total Cells Counted 100 Neutrophils % (Manual) 92 % Band Neutrophils % 1 % Lymphocytes % 3 % Monocytes % 3 % Neutrophils # (Manual) 14.9 TH/MM3 Promyelocytes 1 % Differential Comment FINAL DIFF MANUAL Platelet Estimate LOW Platelet Morphology Comment NORMAL Red Cell Morphology Comment NORMAL Blood Urea Nitrogen 34 MG/DL Creatinine 0.81 MG/DL Random Glucose 194 MG/DL Calcium Level 8.2 MG/DL Sodium Level 145 MEQ/L Potassium Level 4.5 MEQ/L Chloride Level 111 MEQ/L Carbon Dioxide Level 29.0 MEQ/L Anion Gap 5 MEQ/L Estimat Glomerular Filtration Rate 97 ML/MIN Imaging Last Impressions Chest X-Ray 06/12/17 0000 Signed Impressions: Service Date/Time: Monday, June 12, 2017 03:12 - CONCLUSION: Stable central and lower lung air space infiltrates. Yuri Streeter MD Abdomen X-Ray 06/11/17 0000 Signed Impressions: Service Date/Time: Sunday, June 11, 2017 19:52 - CONCLUSION: 1. Mild gaseous distention of colon. NG tip in stomach. Rectal temperature probe present. Humphrey Weston MD Head CT 06/04/17 0000 Signed Impressions: Service Date/Time: Sunday, June 04, 2017 18:46 - CONCLUSION: 1. No significant change compared to 06/03/17. 2. No acute infarct, acute hemorrhage , mass effect or extra-axial fluid collection. 3. Scattered old lacunar infarcts within the bilateral basal ganglia. 4. Mild periventricular and subcortical white matter small vessel ischemic changes bilaterally. 5. Old right posterior parietal infarct. 6. Chronic opacification of right mastoid air cells. Mckay Stone MD Chest CT 06/04/17 0000 Signed Impressions: Service Date/Time: Sunday, June 04, 2017 18:49 - CONCLUSION: 1. Right mid lung field and posterior bibasilar patchiness consistent with probable areas of pneumonia and/or atelectasis. Clinical correlation is recommended. 2. Tiny bilateral pleural effusions. 3. Cardiomegaly and coronary artery calcifications. 4. Minimal scattered emphysematous changes bilaterally. Mckay Stone MD Objective Remarks GENERAL: Patient is 61 intubated and sedated SKIN: Warm and dry. HEAD: Normocephalic. EYES: No scleral icterus. No injection or drainage. NECK: Supple, trachea midline. No JVD or lymphadenopathy. CARDIOVASCULAR: Regular rate and rhythm without murmurs, gallops, or rubs. RESPIRATORY: Breath sounds equal bilaterally. No accessory muscle use. GASTROINTESTINAL: Abdomen soft, non-tender, nondistended. MUSCULOSKELETAL: No cyanosis, or edema. Neuro: sedated A/P Assessment and Plan 61-year-old male with: Encephalopathy Acute respiratory failure requiring mechanical ventilation COPD exacerbation Suspected pneumonia Fungemia Rhabdomyolysis ROSENDO/ CKD Uncontrolled hypertension hyperlipidemia CVA bipolar disorder GERD arthritis Schizoaffective disorder/bipolar disorder History of alcohol abuse Plan: Neuro: On Sedation with propofol/fentanyl gtt., daily sedation vacation. Follow neuro status. CT head negative for any bleed and showed old lacunar infarcts. On Aricept and Cogentin Precedex drip to facilitate with weaning trials. CV: Monitor HR and BP keep MAP>65mmHg On Lopressor 50mg Q12 .on Lipitor. Norvasc 5mg daily 2-D echo with normal LV/RV function Pulmo: Intubated and placed on mechanical ventilation on 06/04. Vent bundle, bronchodilators, solumederol 40mg Q12 SBT daily as cordell. GI/liver: Continue tube feeds-Glucerna 1.5@60ml/hr KUB abdomen: Mild gaseous distention Renal/: Monitor renal function, electrolytes replacement per protocol. Diurese with Lasix 40mg x1 ID: On IV Zosyn, Vanco, add Micafungin 150mg IV daily. BC 06/10 1/4 yeast. Check BC x 2 sets monitor for signs of infections ( Fever, WBC) Opth luis e r/o chorioretinitis in setting of Fungemia Sputum cx: E.coli on 06/04, Check CT abd/pelvis ID is following. C-diff PCR is negative Endocrine: SSI for glycemic control as needed. Heme: Monitor CBC. Prophylaxis: Pepcid/SCDs. SQ Lovenox level 3 Katina Marcos MD Jun 14, 2017 10:59
[2017-06-14] MEDS ORDERED: NYSTATIN 100,000 U/GM PWD 15 GM BTL TOPICAL PRN (11:00)
[2017-06-14] MEDS ORDERED: DIATRIZOATE MEGLUM/DIATRIZOATE SOD 9 ML CUP PO ONE (12:00)
[2017-06-14] MEDS ORDERED: FUROSEMIDE 40 MG/4 ML VIAL IV PUSH ONE (12:30)
[2017-06-14] MEDS: MICAFUNGIN INJ 150 MG in SODIUM CHLORIDE 0.9% INJ 100 ML IV SCH (14:21)
[2017-06-14] MEDS: ENOXAPARIN SODIUM 40 MG/0.4 ML SYRINGE SQ SCH (16:23)
--- NOTE | 2017-06-14 16:27 | HHI.PR ---
Subjective Remarks ON THE VENTILATOR sedated Objective Vital Signs Date Time Temp Pulse Resp B/P (MAP) Pulse Ox O2 Delivery O2 Flow Rate FiO2 06/14/17 16:03 92 60 06/14/17 14:00 51 06/14/17 14:00 51 06/14/17 13:16 59 06/14/17 12:52 111 06/14/17 12:00 60 06/14/17 12:00 52 06/14/17 12:00 99.8 06/14/17 11:53 92 60 06/14/17 10:00 52 06/14/17 10:00 52 16 94 06/14/17 10:00 52 06/14/17 09:03 92 60 06/14/17 08:31 66 06/14/17 08:31 66 06/14/17 08:31 66 20 148/67 (94) 90 06/14/17 08:01 119 06/14/17 08:01 119 06/14/17 08:01 119 32 230/127 (161) 94 06/14/17 08:00 60 06/14/17 08:00 126 29 94 06/14/17 08:00 126 06/14/17 08:00 126 06/14/17 06:00 67 06/14/17 04:00 97.3 55 16 122/59 (80) 93 06/14/17 04:00 60 06/14/17 04:00 55 06/14/17 03:24 92 60 06/14/17 02:00 82 06/14/17 00:50 95 60 06/14/17 00:00 97.8 78 43 161/84 (109) 95 06/14/17 00:00 78 06/14/17 00:00 60 06/13/17 22:00 56 06/13/17 20:00 58 06/13/17 20:00 60 06/13/17 20:00 98.1 54 15 133/71 (91) 96 06/13/17 19:50 95 60 06/13/17 18:00 71 I/O 06/13/17 06/13/17 06/13/17 06/14/17 06/14/17 06/14/17 07:00 15:00 23:00 07:00 15:00 23:00 Intake Total 1916 ml 100 ml 1686 ml 2492.7 ml Output Total 1400 ml 1250.0 ml 400 ml Balance 516 ml 100 ml 436.0 ml 2092.7 ml IV Total 715 ml 100 ml 871 ml 1433.7 ml Tube Feeding 701 ml 635 ml 559 ml Tube Irrigant 180 ml Other 500 ml 500 ml Output Urine Total 1400 ml 750 ml 300 ml Stool Total 500 ml 100 ml Tube Feeding Residual Discard 0 ml # Voids 2 # Bowel Movements 2 3 Result Diagram: 06/14/1763906/14/17639 Objective Remarks GENERAL: SKIN: Warm and dry. HEAD: Atraumatic. Normocephalic. EYES: Pupils equal and round. No scleral icterus. No injection or drainage. ENT: No nasal bleeding or discharge. Mucous membranes pink and moist. NECK: Trachea midline. No JVD. CARDIOVASCULAR: Regular rate and rhythm. RESPIRATORY: No accessory muscle use. SCATTERED RHONCHI. GASTROINTESTINAL: Abdomen soft, non-tender, nondistended. Hepatic and splenic margins not palpable. MUSCULOSKELETAL: Extremities without clubbing, cyanosis, or edema. No obvious deformities. NEUROLOGICAL: Awake and alert. No obvious cranial nerve deficits. Motor grossly within normal limits. Five out of 5 muscle strength in the arms and legs. Normal speech. PSYCHIATRIC: Appropriate mood and affect; insight and judgment normal. Assessment and Plan Assessment and Plan RESPIRATORY FAILURE COPD PNA PLAN VENT SUPPORT WEAN TOLERATED BRONCHODILATORS PULM. TONOET Marcos Rodríguez MD Jun 14, 2017 16:27
--- NOTE | 2017-06-14 16:44 | PD.CONS ---
History of Present Illness Service Ophthalmology Consult Requested By Reason for Consult rule out ocular fungemia Primary Care Physician Adonay Clark M.D. Diagnoses: History of Present Illness 61 yo M with a history of COPD, hypertension, hyperlipidemia, CVA, schizoaffective disorder, bipolar disorder, GERD, renal failure, and arthritis presented to the emergency room on 06/03/2017 from a SNF with altered mental status. Currently intubated and sedated. Found to have fungemia. Ophthalmology consulted to rule out eye involvement. Per mother, no significant ocular history. Past Family Social History Allergies: Coded Allergies: hydrochlorothiazide (Unverified Allergy, Intermediate, EFFECTS HIS SODIUM LEVEL, 02/12/17) PT STATES HE IS NOT ALLERGIC codeine (Unverified Adverse Reaction, Severe, 02/12/17) PT STATES HE IS NOT ALLERGIC Physical Exam Vital Signs Vital Signs Date Time Temp Pulse Resp B/P (MAP) Pulse Ox O2 Delivery O2 Flow Rate FiO2 06/14/17 16:03 92 60 06/14/17 14:00 51 06/14/17 14:00 51 06/14/17 13:16 59 06/14/17 12:52 111 06/14/17 12:00 60 06/14/17 12:00 52 06/14/17 12:00 99.8 06/14/17 11:53 92 60 06/14/17 10:00 52 06/14/17 10:00 52 16 94 06/14/17 10:00 52 06/14/17 09:03 92 60 06/14/17 08:31 66 06/14/17 08:31 66 06/14/17 08:31 66 20 148/67 (94) 90 06/14/17 08:01 119 06/14/17 08:01 119 06/14/17 08:01 119 32 230/127 (161) 94 06/14/17 08:00 60 06/14/17 08:00 126 29 94 06/14/17 08:00 126 06/14/17 08:00 126 06/14/17 06:00 67 06/14/17 04:00 97.3 55 16 122/59 (80) 93 06/14/17 04:00 60 06/14/17 04:00 55 06/14/17 03:24 92 60 06/14/17 02:00 82 06/14/17 00:50 95 60 06/14/17 00:00 97.8 78 43 161/84 (109) 95 06/14/17 00:00 78 06/14/17 00:00 60 06/13/17 22:00 56 06/13/17 20:00 58 06/13/17 20:00 60 06/13/17 20:00 98.1 54 15 133/71 (91) 96 06/13/17 19:50 95 60 06/13/17 18:00 71 Physical Exam Va unable EOM unable CVF unable Pupils 2-1 no APD OU IOP 14, 16 Anterior exam OD - normal eyelid, C/S W&Q, K clear, AC deep, pupil round, lens clear OS - normal eyelid, C/S W&Q, K clear, AC deep, pupil round, lens clear Dilated exam OD - ON s/p/f, ves normal, vit clear, retina flat OS - ON s/p/f, ves normal, vit clear, retina flat Laboratory Laboratory Tests Test 06/13/17 17:50 06/14/17 06:40 Vancomycin Level Trough 11.7 White Blood Count 15.9 Red Blood Count 4.08 Hemoglobin 12.3 Hematocrit 37.2 Mean Corpuscular Volume 91.0 Mean Corpuscular Hemoglobin 30.2 Mean Corpuscular Hemoglobin Concent 33.1 Red Cell Distribution Width 14.3 Platelet Count 137 Mean Platelet Volume 8.5 Neutrophils (%) (Auto) 92.1 Lymphocytes (%) (Auto) 4.2 Monocytes (%) (Auto) 3.6 Eosinophils (%) (Auto) 0.0 Basophils (%) (Auto) 0.1 Neutrophils # (Auto) 14.6 Lymphocytes # (Auto) 0.7 Monocytes # (Auto) 0.6 Eosinophils # (Auto) 0.0 Basophils # (Auto) 0.0 CBC Comment AUTO DIFF Differential Total Cells Counted 100 Neutrophils % (Manual) 92 Band Neutrophils % 1 Lymphocytes % 3 Monocytes % 3 Neutrophils # (Manual) 14.9 Promyelocytes 1 Differential Comment FINAL DIFF MANUAL Platelet Estimate LOW Platelet Morphology Comment NORMAL Red Cell Morphology Comment NORMAL Blood Urea Nitrogen 34 Creatinine 0.81 Random Glucose 194 Calcium Level 8.2 Sodium Level 145 Potassium Level 4.5 Chloride Level 111 Carbon Dioxide Level 29.0 Anion Gap 5 Estimat Glomerular Filtration Rate 97 Date/Time Source Procedure Growth Status 06/14/17 12:35 Blood Peripheral Aerobic Blood Culture Pending Received 06/14/17 12:35 Blood Peripheral Anaerobic Blood Culture Pending Received 06/10/17 13:20 Sputum Endotracheal Gram Stain - Final Complete 06/10/17 13:20 Sputum Endotracheal Sputum Culture - Final HEAVY GROWTH NORMAL RESPIRATORY RUBI Complete 06/10/17 12:45 Urine Catheterized Urine Urine Culture - Final NO GROWTH IN 48 HOURS. Complete Result Diagram: 06/14/17 0640 06/14/17 0640 Assessment and Plan Problem List: (1) Fungemia ICD Codes: B49 - Unspecified mycosis Plan: No ocular involvement on dilated exam. Maddie Clark MD Jun 14, 2017 16:44
--- NOTE | 2017-06-14 18:04 | HHI.IDPN ---
Subjective Subjective Remarks Large volume diarrhea low grade fever he grew out yeast in 1/4 blood clx remains on vent micafungin was started 600 cc of liquid stool, C.diff negative Antibiotics zaosyn vancomycin Allergies: Coded Allergies: hydrochlorothiazide (Unverified Allergy, Intermediate, EFFECTS HIS SODIUM LEVEL, 02/12/17) PT STATES HE IS NOT ALLERGIC codeine (Unverified Adverse Reaction, Severe, 02/12/17) PT STATES HE IS NOT ALLERGIC Objective . Vital Signs Date Time Temp Pulse Resp B/P (MAP) Pulse Ox O2 Delivery O2 Flow Rate FiO2 06/14/17 16:03 92 60 06/14/17 14:00 51 06/14/17 14:00 51 06/14/17 13:16 59 06/14/17 12:52 111 06/14/17 12:00 60 06/14/17 12:00 52 06/14/17 12:00 99.8 06/14/17 11:53 92 60 06/14/17 10:00 52 06/14/17 10:00 52 16 94 06/14/17 10:00 52 06/14/17 09:03 92 60 06/14/17 08:31 66 06/14/17 08:31 66 06/14/17 08:31 66 20 148/67 (94) 90 06/14/17 08:01 119 06/14/17 08:01 119 06/14/17 08:01 119 32 230/127 (161) 94 06/14/17 08:00 60 06/14/17 08:00 126 29 94 06/14/17 08:00 126 06/14/17 08:00 126 06/14/17 06:00 67 06/14/17 04:00 97.3 55 16 122/59 (80) 93 06/14/17 04:00 60 06/14/17 04:00 55 06/14/17 03:24 92 60 06/14/17 02:00 82 06/14/17 00:50 95 60 06/14/17 00:00 97.8 78 43 161/84 (109) 95 06/14/17 00:00 78 06/14/17 00:00 60 06/13/17 22:00 56 06/13/17 20:00 58 06/13/17 20:00 60 06/13/17 20:00 98.1 54 15 133/71 (91) 96 06/13/17 19:50 95 60 06/13/17 18:00 71 . Laboratory Tests Test 06/13/17 06:25 06/14/17 06:40 White Blood Count 15.7 TH/MM3 15.9 TH/MM3 Red Blood Count 4.13 MIL/MM3 4.08 MIL/MM3 Hemoglobin 12.2 GM/DL 12.3 GM/DL Hematocrit 37.4 % 37.2 % Mean Corpuscular Volume 90.4 FL 91.0 FL Mean Corpuscular Hemoglobin 29.4 PG 30.2 PG Mean Corpuscular Hemoglobin Concent 32.5 % 33.1 % Red Cell Distribution Width 14.8 % 14.3 % Platelet Count 153 TH/MM3 137 TH/MM3 Mean Platelet Volume 8.6 FL 8.5 FL Neutrophils (%) (Auto) 84.6 % 92.1 % Lymphocytes (%) (Auto) 7.8 % 4.2 % Monocytes (%) (Auto) 7.3 % 3.6 % Eosinophils (%) (Auto) 0.1 % 0.0 % Basophils (%) (Auto) 0.2 % 0.1 % Neutrophils # (Auto) 13.3 TH/MM3 14.6 TH/MM3 Lymphocytes # (Auto) 1.2 TH/MM3 0.7 TH/MM3 Monocytes # (Auto) 1.1 TH/MM3 0.6 TH/MM3 Eosinophils # (Auto) 0.0 TH/MM3 0.0 TH/MM3 Basophils # (Auto) 0.0 TH/MM3 0.0 TH/MM3 CBC Comment AUTO DIFF AUTO DIFF Differential Total Cells Counted 100 100 Neutrophils % (Manual) 72 % 92 % Band Neutrophils % 9 % 1 % Lymphocytes % 10 % 3 % Monocytes % 7 % 3 % Neutrophils # (Manual) 13.0 TH/MM3 14.9 TH/MM3 Myelocytes 2 % Differential Comment FINAL DIFF MANUAL FINAL DIFF MANUAL Toxic Granulation 1+ Platelet Estimate NORMAL LOW Platelet Morphology Comment NORMAL NORMAL Promyelocytes 1 % Red Cell Morphology Comment NORMAL Laboratory Tests Test 06/13/17 06:25 06/14/17 06:40 Blood Urea Nitrogen 43 MG/DL 34 MG/DL Creatinine 0.87 MG/DL 0.81 MG/DL Random Glucose 172 MG/DL 194 MG/DL Calcium Level 8.2 MG/DL 8.2 MG/DL Sodium Level 145 MEQ/L 145 MEQ/L Potassium Level 4.1 MEQ/L 4.5 MEQ/L Chloride Level 108 MEQ/L 111 MEQ/L Carbon Dioxide Level 31.9 MEQ/L 29.0 MEQ/L Anion Gap 5 MEQ/L 5 MEQ/L Estimat Glomerular Filtration Rate 90 ML/MIN 97 ML/MIN Microbiology Date/Time Source Procedure Growth Status 06/14/17 12:35 Blood Peripheral Aerobic Blood Culture Pending Received 06/14/17 12:35 Blood Peripheral Anaerobic Blood Culture Pending Received 06/14/17 12:29 Blood Peripheral Aerobic Blood Culture Pending Received 06/14/17 12:29 Blood Peripheral Anaerobic Blood Culture Pending Received Imaging Last Impressions Chest X-Ray 06/12/17 0000 Signed Impressions: Service Date/Time: Monday, June 12, 2017 03:12 - CONCLUSION: Stable central and lower lung air space infiltrates. Yuri Streeter MD Abdomen X-Ray 06/11/17 0000 Signed Impressions: Service Date/Time: Sunday, June 11, 2017 19:52 - CONCLUSION: 1. Mild gaseous distention of colon. NG tip in stomach. Rectal temperature probe present. Humphrey Weston MD Head CT 06/04/17 0000 Signed Impressions: Service Date/Time: Sunday, June 04, 2017 18:46 - CONCLUSION: 1. No significant change compared to 06/03/17. 2. No acute infarct, acute hemorrhage , mass effect or extra-axial fluid collection. 3. Scattered old lacunar infarcts within the bilateral basal ganglia. 4. Mild periventricular and subcortical white matter small vessel ischemic changes bilaterally. 5. Old right posterior parietal infarct. 6. Chronic opacification of right mastoid air cells. Mckay Stone MD Chest CT 06/04/17 0000 Signed Impressions: Service Date/Time: Sunday, June 04, 2017 18:49 - CONCLUSION: 1. Right mid lung field and posterior bibasilar patchiness consistent with probable areas of pneumonia and/or atelectasis. Clinical correlation is recommended. 2. Tiny bilateral pleural effusions. 3. Cardiomegaly and coronary artery calcifications. 4. Minimal scattered emphysematous changes bilaterally. Mckay Stone MD Physical Exam CONSTITUTIONAL/GENERAL: This is an adequately nourished patient, in no apparent distress. TUBES/LINES/DRAINS: SKIN: No jaundice, rashes, or lesions. Skin temperature appropriate. Not diaphoretic. EYES: Pupils equal and round and reactive. Extraocular motions intact. No scleral icterus. No injection or drainage. Fundi not examined. ENT: Hearing was not tested Nose without bleeding or purulent drainage. Orally intubated CARDIOVASCULAR: Regular rate and rhythm without murmurs, gallops, or rubs. No JVD. Peripheral pulses symmetric. RESPIRATORY/CHEST: Symmetric, unlabored respirations. Clear to auscultation. Breath sounds equal bilaterally. No wheezes, rales, or rhonchi. GASTROINTESTINAL: Abdomen soft, + reaction to palpation (grimacing), quite distended. No hepato-splenomegaly, or palpable masses. No guarding. Bowel sounds present, hyperactive . rectal tube in place with large amount of stool GENITOURINARY: Without palpable bladder distension. condom catheter in place with clear yellow MUSCULOSKELETAL: Extremities without clubbing, cyanosis, or edema. No joint tenderness or effusion noted. No calf tenderness. No mottling or clubbing. LYMPHATICS: No palpable cervical or supraclavicular adenopathy. NEUROLOGICAL: moves all 4 extremeties, awake, alert, not comunicating PSYCHIATRIC: unable to assess Assessment & Plan Remarks Assessment and Plan Mental status change, PNA, E.coli Acute VDRF Multiple med problems worsning leukocytosis source: worsening PNA also consicder intar abd UA nos cw infx Abdominal distention, diarrhea C.diff negative Persistent leukocytosis New issue: C glabrata funguria - no central lines, likely from intraabd source cont zosyn for now dc vancomycin mycafungin CT abd/pel with IV dw Dr Kirk Wiseman,Ml Pino MD Jun 14, 2017 18:04
[2017-06-14] MEDS: ATORVASTATIN 40 MG TAB PO SCH (21:37)
[2017-06-14] MEDS: TAMSULOSIN HCL 0.4 MG CAP PO SCH (21:37)
[2017-06-14] MEDS: DONEPEZIL HCL 5 MG TAB PO SCH (21:38)
[2017-06-14] MEDS: BENZTROPINE MESYLATE 1 MG TAB PO SCH (21:38)
[2017-06-14] MEDS ORDERED: IOHEXOL 350 MG/ML 10 ML VIAL (for RAD DIAG) IVCONTRAST ONE (22:37)
[2017-06-14] MEDS: hydrALAZINE HCL 20 MG/ML VIAL IV PUSH PRN (22:50)
--- NOTE | 2017-06-14 22:59 | RADRPT ---
EXAM DATE/TIME: 06/14/2017 22:32 [facility] COMPARISON: CT THORAX W/O CONTRAST, June 04, 2017, 18:49. INDICATIONS : Abdominal distention. IV CONTRAST: 100 cc Omnipaque 350 (iohexol) IV ORAL CONTRAST: No oral contrast ingested. RADIATION DOSE: 19.78 CTDIvol (mGy) MEDICAL HISTORY : Hypertension. Gastroesophageal reflux disease. Hepatitis.Cirrhosis. SURGICAL HISTORY : Hip replacement. ENCOUNTER: Initial ACUITY: 1 day PAIN SCALE: 5/10 LOCATION: abdomen TECHNIQUE: Volumetric scanning of the abdomen and pelvis was performed. Using automated exposure control and ad justment of the mA and/or kV according to patient size, radiation dose was kept as low as reasonably achievable to obtain optimal diagnostic quality images. DICOM format image data is available electro nically for review and comparison. FINDINGS: Comparison chest CT from June 04. Basilar lung consolidation on the right side has increased Decem nelson 5. There is also slight worsening on the left. No acute findings in the liver, spleen, adrenals, kidneys or pancreas. No calcified gallstones or alisha iary ductal dilatation. NG coiled in the stomach. There is no bowel obstruction. No free air free fluid. There is a mild ileu s. Rectal balloon present. CONCLUSION: 1. Increasing basilar lung consolidation since chest CT from June 04. 2. Mild ileus. No bowel obstruction, free air or free fluid. 3. Left hip replacement. Advanced osteoarthritis right hip. NG in stomach. Rectal tube present. Humphrey Weston MD on June 14, 2017 at 22:53 Board Certified Radiologist. This report was verified electronically.
[2017-06-15] VITALS (26 sets, daily range): BP systolic 98–154; BP diastolic 57–83; PULSE 48–94; RESP 13–25; TEMP 98–99.1; O2SAT 90–100
[2017-06-15] MEDS: PROPOFOL 1000 MG/100 ML INJ 100 ML IV PRN ×3 (00:49→18:18)
[2017-06-15] MEDS: RESP: ALBUTEROL 2.5 MG/IPRATROPIUM 0.5 MG NEB (SCH) NEB ×6 (02:55→23:47)
[2017-06-15] MEDS: DEXMEDETOMIDINE INJ 1,000 MCG in SODIUM CHLOR 0.9% 250 ML INJ 240 ML IV PRN (03:25)
[2017-06-15] MEDS: CHLORHEXIDINE GLUCONATE 2 % 1 PACK (2 CLOTHS) TOP SCH (04:00)
[2017-06-15] MEDS: INSULIN NovoLIN REGULAR SUPPLEMENTAL SCALE SQ SCH ×6 (04:00→20:27)
--- NOTE | 2017-06-15 04:27 | RADRPT ---
EXAM DATE/TIME: 06/15/2017 03:30 [facility] COMPARISON: CHEST SINGLE AP, June 12, 2017, 3:12. INDICATIONS : Evaluate for pneumonia- Respiratory failure MEDICAL HISTORY : Hepatitis C. Chronic obstructive pulmonary disease. Hypertension. Stroke. SURGICAL HISTORY : None. ENCOUNTER: Subsequent ACUITY: 1 week PAIN SCORE: Non-responsive. LOCATION: Bilateral chest FINDINGS: Single AP view of the chest. Endotracheal tube and nasogastric tube remain in place. Persistent bilat eral patchy pulmonary opacity with lower lung zone predominance. No significant interval change. No e vidence of pleural effusion or pneumothorax. Cardiomediastinal silhouette unchanged. CONCLUSION: No significant interval change with persistent patchy bilateral lower lung zone predominant opacity. Rosas Rowell MD on June 15, 2017 at 4:24 Board Certified Radiologist. This report was verified electronically.
[2017-06-15] MEDS: FREE WATER G-TUBE SCH ×3 (05:25→22:00)
[2017-06-15] MEDS: PIPERACIL-TAZO 4.5 GM PREMIX 100 ML IV SCH ×4 (06:05→17:18)
[2017-06-15] MEDS ORDERED: SODIUM PHOSPHATE INJ 30 MMOL in SODIUM CHLOR 0.9% 250 ML INJ 240 ML IV PRN (07:00)
[2017-06-15] MEDS ORDERED: POTASSIUM PHOSPHATE INJ 30 MMOL in SODIUM CHLOR 0.9% 250 ML INJ 250 ML IV PRN (07:00)
[2017-06-15] MEDS ORDERED: POTASSIUM PHOSPHATE MONOBASIC 500 MG TAB PO PRN (07:00)
[2017-06-15] MEDS ORDERED: MAGNESIUM SULFATE INJ 4 GM in SODIUM CHLORIDE 0.9% INJ 92 ML IV PRN (07:00)
[2017-06-15] MEDS ORDERED: POTASSIUM CHLOR 40 MEQ PREMIX 100 ML IV PRN ×2 (07:00)
[2017-06-15] MEDS ORDERED: MAGNESIUM OXIDE 400 MG TAB PO PRN (07:00)
[2017-06-15] MEDS ORDERED: DEXTROSE 50% IN WATER 50 ML VIAL(D50) IV PUSH PRN (07:00)
[2017-06-15] MEDS ORDERED: POTASSIUM PHOSPHATE MONOBASIC 500 MG TAB PO/TUBE PRN (07:00)
[2017-06-15] MEDS ORDERED: MAGNESIUM SULFATE INJ 2 GM in SODIUM CHLORIDE 0.9% INJ 96 ML IV PRN (07:00)
[2017-06-15 07:04] LABS: ALT (GPT) 22 U/L (12-78)
[2017-06-15 07:05] LABS: AUTOMATED NEUTROPHIL # 13.1 TH/MM3 (1.8-7.7); BASOPHIL % 0.2 % (0.0-2.0); EOSINOPHIL % 0.1 % (0.0-4.0); HEMATOCRIT 36.7 % (39.0-51.0); HEMOGLOBIN 12.1 GM/DL (13.0-17.0); LYMPH % 8.8 % (9.0-44.0); LYMPHOCYTE # 1.3 TH/MM3 (1.0-4.8); MEAN CELL VOLUME 91.5 FL (80.0-100.0); MEAN CORPUSCULAR HGB CONC 32.8 % (32.0-36.0); MEAN PLATELET VOLUME 8.7 FL (7.0-11.0); MONO % 5.9 % (0.0-8.0); MONOCYTE # 0.9 TH/MM3 (0-0.9); PLATELET COUNT 148 TH/MM3 (150-450); RED BLOOD COUNT 4.02 MIL/MM3 (4.50-5.90); RED CELL DISTRIBUTION WIDTH 14.3 % (11.6-17.2); WHITE BLOOD COUNT 15.4 TH/MM3 (4.0-11.0)
[2017-06-15 07:06] LABS: ALKALINE PHOSPHATASE 80 U/L (45-117); TOTAL BILIRUBIN ADULT 0.5 MG/DL (0.2-1.0); TOTAL PROTEIN 6.1 GM/DL (6.4-8.2)
[2017-06-15 07:09] LABS: ALBUMIN 2.2 GM/DL (3.4-5.0); AST (GOT) 21 U/L (15-37); BICARBONATE 27.5 MEQ/L (21.0-32.0); BLOOD UREA NITROGEN 39 MG/DL (7-18); CALCIUM 8.1 MG/DL (8.5-10.1); CHLORIDE 106 MEQ/L (98-107); CREATININE 0.86 MG/DL (0.60-1.30); GLOMERULAR FILTRATION RATE 91 ML/MIN (>89); GLUCOSE,RANDOM 149 MG/DL (74-106); SODIUM (NA) 142 MEQ/L (136-145)
--- NOTE | 2017-06-15 07:26 | HHI.CCPN ---
Subjective Remarks/Hospital Course 06/04: Mr. Reilly is a 61-year-old male with a history of COPD, hypertension, hyperlipidemia, CVA, schizoaffective disorder, bipolar disorder, GERD, renal failure, and arthritis who presented to the emergency room on 06/03/2017 from a senior care facility for evaluation of altered mental status. Upon review of the medical records from the senior care facility, it is noted he had a right lower lobe pneumonia diagnosed mid May. Head CT showed no acute infarct, acute hemorrhage, mass effect, or extra-axial fluid collection but scattered old lacunar infarcts within the bilateral basal ganglia. Mild periventricular and subcortical white matter small vessel ischemic changes bilaterally. Chest x-ray shows scattered bibasilar patchiness consistent with possible pneumonia. Per documentation : While in the ER, patient was in moderate respiratory distress with tachypnea and utilization of accessory abdominal muscles to breathe. His lung sounds are bilaterally congested and he is confused and a poor historian. His speech is slightly slurred but this is not a new finding. He was noted to be on 5 L nasal cannula with oxygen saturation of 94% in the emergency room. Patient was admitted to the ICU by the hospitalist service. He was initiated on heparin drip for suspicion of PE. He was also noted to have an elevated CPK and creatinine. His blood pressures were running high overnight. This afternoon patient developed worsening agitation and disorientation and confusion. His heparin was stopped earlier by Dr. Garcia due to low suspicion for PE. Patient developed worsening respiration status with respirations in the 30s and O2 sats in the mid 80s. Critical care medicine was consulted. Patient was emergently intubated by Dr. Elvira Gutierrez and I subsequently took over patient care. When I evaluated the patient he had been sedated for the intubation and is being placed on mechanical ventilation. History was obtained by discussion with Dr. Garcia, Dr. Gutierrez and ICU nursing staff as well as documentation in the chart. 06/05: Remains sedated, orally intubated on mechanical ventilation. 06/06: Sedated, orally intubated on mechanical ventilation. Failed C Pap trial today. Got extremely anxious on lightening sedation. 06/07 No events overnight. Sedated and intubated. Afebrile. 06/08 No events overnight. Sedated with Diprivan, Fentanyl and intubated. 06/09 Patient remains sedated and intubated. Afebrile.Did not tolerate CPAP trials yesterday. 06/10 Patient is sedated with Fentanyl and Diprivan. Afebrile. Did not tolerate CPAP yesterday as he became restless, agitated and tachycardic. 06/11 Patient remains sedated and intubated. Spiked fever with Tmax 101.1 06/12 No events overnight. Sedated and intubated. Afebrile. 06/13 Patient remains intubated and sedated with Diprivan, fentanyl in addition he is on Precedex drip. T:100.0 06/14 Patient remains sedated and intubated. Afebrile. Did not tolerate CPAP trials yesterday as he became tahypenic, tachycardic and restless. 06/15: agitation persists. respiratory failure persists. severely volume overloaded. has been intubated for almost 2 weeks. may require trach. CT abd/ pelvis without overt acute disease. no other source for fungemia. Objective Vital Signs Date Time Temp Pulse Resp B/P (MAP) Pulse Ox O2 Delivery O2 Flow Rate FiO2 06/15/17 05:04 93 60 06/15/17 02:00 60 06/15/17 00:00 98.0 22 137/61 (86) 06/12/17 21:50 Ventilator Result Diagram: 06/14/17 0640 06/14/17 0640 Imaging Last Impressions Chest X-Ray 06/12/17 0000 Signed Impressions: Service Date/Time: Monday, June 12, 2017 03:12 - CONCLUSION: Stable central and lower lung air space infiltrates. Yuri Streeter MD Abdomen X-Ray 06/11/17 0000 Signed Impressions: Service Date/Time: Sunday, June 11, 2017 19:52 - CONCLUSION: 1. Mild gaseous distention of colon. NG tip in stomach. Rectal temperature probe present. Humphrey Weston MD Head CT 06/04/17 0000 Signed Impressions: Service Date/Time: Sunday, June 04, 2017 18:46 - CONCLUSION: 1. No significant change compared to 06/03/17. 2. No acute infarct, acute hemorrhage , mass effect or extra-axial fluid collection. 3. Scattered old lacunar infarcts within the bilateral basal ganglia. 4. Mild periventricular and subcortical white matter small vessel ischemic changes bilaterally. 5. Old right posterior parietal infarct. 6. Chronic opacification of right mastoid air cells. Mckay Stone MD Chest CT 06/04/17 0000 Signed Impressions: Service Date/Time: Sunday, June 04, 2017 18:49 - CONCLUSION: 1. Right mid lung field and posterior bibasilar patchiness consistent with probable areas of pneumonia and/or atelectasis. Clinical correlation is recommended. 2. Tiny bilateral pleural effusions. 3. Cardiomegaly and coronary artery calcifications. 4. Minimal scattered emphysematous changes bilaterally. Mckay Stone MD Objective Remarks GENERAL: middle-aged male appears older than stated age, lying in bed, agitated , intubated. SKIN: Warm and dry. HEAD: Normocephalic. EYES: No scleral icterus. No injection or drainage. NECK: trachea midline. No JVD CARDIOVASCULAR: normal rate, regular rhythm. sinus by tele. RESPIRATORY: intubated. 60% fio2. full mechanical support. GASTROINTESTINAL: Abdomen soft, non-tender, nondistended. MUSCULOSKELETAL: No cyanosis. Neuro: sedated. RASS +1. moves all extremities spontaneously. does not follow commands. A/P Assessment and Plan Assessment: 61yM with history of schizoaffective d/o and bipolar d/o who presented with acute hypoxic respiratory failure and now fungemia without overt source. Not improving on pathway. No meaningful improvements over last 2 weeks. will likely require trach and long-term acute care setting. will continue anti- fungals. also grossly volume overloaded and will need aggressive diuresis. Highly complex and off pathway. Plan: Neuro: Acute Metabolic Encephalopathy Agitated Delirium Schizoaffective disorder/bipolar disorder History of alcohol abuse History of CVA add geodon 10mg IM q12h prn for agitation continue aricept and cogentin currently on propofol/fentanyl/precedex for goal RASS -2. CV: Uncontrolled hypertension - improving. hyperlipidemia Monitor HR and BP keep MAP>65mmHg On Lopressor 50mg Q12 .on Lipitor. Norvasc 5mg daily 2-D echo with normal LV/RV function Pulmo: Acute respiratory failure requiring mechanical ventilation - persistent. COPD exacerbation Resolving community acquired pneumonia Intubated and placed on mechanical ventilation on 06/04. Vent bundle, bronchodilators, solumederol 40mg Q12 continue daily SBTs. failing for tachypnea and agitation wean fio2 for spo2 > 90% diuresis as below. GI/liver: GERD Diarrhea Acute protein calorie malnutrition- severe Continue tube feeds-Glucerna 1.5@60ml/hr KUB abdomen: Mild gaseous distention Ct abd/pelvis 06/14: no acute disease C. Diff negative will add fiber to tube feeds rectal tube in place since 06/13. Renal/: ROSENDO/ CKD - resolved. Rhabdomyolysis - resolved. Acute intravascular volume overload Metabolic alkalosis daily BMP lasix 80mg iv x 1: goal net 2L negative/24h. may need redose of lasix continue Donahue catheter given active diuresis. diamox 500mg iv q8h x 3 doses for alkalosis. ID: Fungemia Community Acquired Pneumonia continue zosyn. continue micafungin ID involved if no improvements in mental status, will discuss with ID possibility of needing LP to rule out fungal meningitis. Sputum cx: E.coli on 06/04, Endocrine: Hyperglycemia of critical illness increase SSI to high scale, q4h Heme: Anemia secondary to chronic disease Monitor CBC. does not meet transfusion triggers at this time. Prophylaxis: Pepcid/SCDs. SQ Lovenox Lines: PIV Donahue Dispo: remain in ICU. remains off pathway. may require trach/PEG for ongoing aggressive care. Beltran Sapp MD Jun 15, 2017 07:26
[2017-06-15] MEDS ORDERED: FUROSEMIDE 100 MG/10 ML VIAL IV PUSH ONE (07:30)
[2017-06-15] MEDS: CHLORHEXIDINE 0.12% (ORAL KIT) 15 ML CUP MT SCH ×2 (08:00→20:28)
[2017-06-15] MEDS ORDERED: PHARMACY ORDERED LAB ONE (08:45)
[2017-06-15] MEDS: NUTRISOURCE FIBER POWDER 1 PACK G-TUBE SCH ×2 (09:00→20:28)
[2017-06-15] MEDS: VENLAFAXINE HCL XR 75 MG CAP PO SCH (09:00)
[2017-06-15] MEDS: SODIUM CHLORIDE 0.9% FLUSH 10 ML FLUSH IV FLUSH SCH ×2 (09:00→20:28)
[2017-06-15] MEDS: methylPREDNISolone SOD SUCC 40 MG/1 ML VIAL IV PUSH SCH ×2 (10:04→20:28)
[2017-06-15] MEDS: amLODIPine BESYLATE 5 MG TAB PO SCH (10:06)
[2017-06-15] MEDS: FAMOTIDINE 20 MG TAB PO SCH ×2 (10:06→20:29)
--- NOTE | 2017-06-15 12:12 | HHI.IDPN ---
Subjective Subjective Remarks Large volume diarrhea low grade fever C glabrate in 07/[address] abd/pel w/o acute pathology Antibiotics zaosyn vancomycin Allergies: Coded Allergies: hydrochlorothiazide (Unverified Allergy, Intermediate, EFFECTS HIS SODIUM LEVEL, 02/12/17) PT STATES HE IS NOT ALLERGIC codeine (Unverified Adverse Reaction, Severe, 02/12/17) PT STATES HE IS NOT ALLERGIC Objective . Vital Signs Date Time Temp Pulse Resp B/P (MAP) Pulse Ox O2 Delivery O2 Flow Rate FiO2 06/15/17 10:15 90 60 06/15/17 08:42 60 06/15/17 08:42 91 60 06/15/17 06:00 76 06/15/17 05:04 93 60 06/15/17 04:00 98.3 72 24 139/63 (88) 92 06/15/17 04:00 50 06/15/17 04:00 72 06/15/17 02:00 60 06/15/17 01:09 95 50 06/15/17 00:00 98.0 58 22 137/61 (86) 92 06/15/17 00:00 58 06/15/17 00:00 50 06/14/17 22:00 118 06/14/17 21:40 100 100 06/14/17 20:00 98.9 118 45 137/88 (104) 94 06/14/17 20:00 50 06/14/17 20:00 118 06/14/17 19:23 97 50 06/14/17 18:00 57 06/14/17 18:00 57 36 90 06/14/17 17:38 64 32 140/72 (94) 93 06/14/17 16:03 92 60 06/14/17 16:00 81 30 79 06/14/17 16:00 60 06/14/17 14:00 51 06/14/17 14:00 51 06/14/17 13:16 59 06/14/17 12:52 111 . Laboratory Tests Test 06/14/17 06:40 06/15/17 05:58 White Blood Count 15.9 TH/MM3 15.4 TH/MM3 Red Blood Count 4.08 MIL/MM3 4.02 MIL/MM3 Hemoglobin 12.3 GM/DL 12.1 GM/DL Hematocrit 37.2 % 36.7 % Mean Corpuscular Volume 91.0 FL 91.5 FL Mean Corpuscular Hemoglobin 30.2 PG 30.0 PG Mean Corpuscular Hemoglobin Concent 33.1 % 32.8 % Red Cell Distribution Width 14.3 % 14.3 % Platelet Count 137 TH/MM3 148 TH/MM3 Mean Platelet Volume 8.5 FL 8.7 FL Neutrophils (%) (Auto) 92.1 % 85.0 % Lymphocytes (%) (Auto) 4.2 % 8.8 % Monocytes (%) (Auto) 3.6 % 5.9 % Eosinophils (%) (Auto) 0.0 % 0.1 % Basophils (%) (Auto) 0.1 % 0.2 % Neutrophils # (Auto) 14.6 TH/MM3 13.1 TH/MM3 Lymphocytes # (Auto) 0.7 TH/MM3 1.3 TH/MM3 Monocytes # (Auto) 0.6 TH/MM3 0.9 TH/MM3 Eosinophils # (Auto) 0.0 TH/MM3 0.0 TH/MM3 Basophils # (Auto) 0.0 TH/MM3 0.0 TH/MM3 CBC Comment AUTO DIFF DIFF FINAL Differential Total Cells Counted 100 Neutrophils % (Manual) 92 % Band Neutrophils % 1 % Lymphocytes % 3 % Monocytes % 3 % Neutrophils # (Manual) 14.9 TH/MM3 Promyelocytes 1 % Differential Comment FINAL DIFF MANUAL Platelet Estimate LOW Platelet Morphology Comment NORMAL Red Cell Morphology Comment NORMAL Laboratory Tests Test 06/14/17 06:40 06/15/17 05:58 Blood Urea Nitrogen 34 MG/DL 39 MG/DL Creatinine 0.81 MG/DL 0.86 MG/DL Random Glucose 194 MG/DL 149 MG/DL Calcium Level 8.2 MG/DL 8.1 MG/DL Sodium Level 145 MEQ/L 142 MEQ/L Potassium Level 4.5 MEQ/L 4.1 MEQ/L Chloride Level 111 MEQ/L 106 MEQ/L Carbon Dioxide Level 29.0 MEQ/L 27.5 MEQ/L Anion Gap 5 MEQ/L 9 MEQ/L Estimat Glomerular Filtration Rate 97 ML/MIN 91 ML/MIN Total Protein 6.1 GM/DL Albumin 2.2 GM/DL Alkaline Phosphatase 80 U/L Aspartate Amino Transf (AST/SGOT) 21 U/L Alanine Aminotransferase (ALT/SGPT) 22 U/L Total Bilirubin 0.5 MG/DL Microbiology Date/Time Source Procedure Growth Status 06/14/17 12:35 Blood Peripheral Aerobic Blood Culture - Preliminary NO GROWTH IN 1 DAY Resulted 06/14/17 12:35 Blood Peripheral Anaerobic Blood Culture - Preliminary NO GROWTH IN 1 DAY Resulted 06/14/17 12:29 Blood Peripheral Aerobic Blood Culture - Preliminary NO GROWTH IN 1 DAY Resulted 06/14/17 12:29 Blood Peripheral Anaerobic Blood Culture - Preliminary NO GROWTH IN 1 DAY Resulted Imaging Last Impressions Chest X-Ray 06/15/17 0600 Signed Impressions: Service Date/Time: Thursday, June 15, 2017 03:30 - CONCLUSION: No significant interval change with persistent patchy bilateral lower lung zone predominant opacity. Rosas Rowell MD Abdomen/Pelvis CT 06/14/17 0000 Signed Impressions: Service Date/Time: Wednesday, June 14, 2017 22:32 - CONCLUSION: 1. Increasing basilar lung consolidation since chest CT from June 04. 2. Mild ileus. No bowel obstruction, free air or free fluid. 3. Left hip replacement. Advanced osteoarthritis right hip. NG in stomach. Rectal tube present. Humphrey Weston MD Abdomen X-Ray 06/11/17 0000 Signed Impressions: Service Date/Time: Sunday, June 11, 2017 19:52 - CONCLUSION: 1. Mild gaseous distention of colon. NG tip in stomach. Rectal temperature probe present. Humphrey Weston MD Head CT 06/04/17 0000 Signed Impressions: Service Date/Time: Sunday, June 04, 2017 18:46 - CONCLUSION: 1. No significant change compared to 06/03/17. 2. No acute infarct, acute hemorrhage , mass effect or extra-axial fluid collection. 3. Scattered old lacunar infarcts within the bilateral basal ganglia. 4. Mild periventricular and subcortical white matter small vessel ischemic changes bilaterally. 5. Old right posterior parietal infarct. 6. Chronic opacification of right mastoid air cells. Mckay Stone MD Chest CT 06/04/17 0000 Signed Impressions: Service Date/Time: Sunday, June 04, 2017 18:49 - CONCLUSION: 1. Right mid lung field and posterior bibasilar patchiness consistent with probable areas of pneumonia and/or atelectasis. Clinical correlation is recommended. 2. Tiny bilateral pleural effusions. 3. Cardiomegaly and coronary artery calcifications. 4. Minimal scattered emphysematous changes bilaterally. Mckay Stone MD Physical Exam CONSTITUTIONAL/GENERAL: This is an adequately nourished patient, in no apparent distress. TUBES/LINES/DRAINS: SKIN: No jaundice, rashes, or lesions. Skin temperature appropriate. Not diaphoretic. EYES: Pupils equal and round and reactive. Extraocular motions intact. No scleral icterus. No injection or drainage. Fundi not examined. CARDIOVASCULAR: Regular rate and rhythm without murmurs, gallops, or rubs. No JVD. Peripheral pulses symmetric. RESPIRATORY/CHEST: Symmetric, unlabored respirations. Clear to auscultation. Breath sounds equal bilaterally. No wheezes, rales, or rhonchi. GASTROINTESTINAL: Abdomen soft, not particularly tende, still somewhat distended. No hepato-splenomegaly, or palpable masses. No guarding. Bowel sounds present, hyperactive . rectral tunb in place with large amopunt of liquid stool GENITOURINARY: Without palpable bladder distension. condom catheter in place with clear yellow MUSCULOSKELETAL: Extremities without clubbing, cyanosis, or edema. No joint tenderness or effusion noted. No calf tenderness. No mottling or clubbing. NEUROLOGICAL: moves all 4 extremeties, awake, alert, not comunicating PSYCHIATRIC: unable to assess Assessment & Plan Remarks Assessment and Plan Mental status change, PNA, E.coli Acute VDRF Multiple med problems worsning leukocytosis source: worsening PNA also consicder intar abd UA nos cw infx Abdominal distention, diarrhea C.diff negative Persistent leukocytosis New issue: C glabrata funguria - no central lines,? source cont zosyn for now cont mycafungin, unticipate 14 days at least from 1 st neg clx 2 D echo repeat sptum clx Ml Wiseman MD Jun 15, 2017 12:12
[2017-06-15] MEDS: MICAFUNGIN INJ 150 MG in SODIUM CHLORIDE 0.9% INJ 100 ML IV SCH (13:07)
[2017-06-15 17:16] LABS: BILIRUBIN, URINE NEG (NEG); BLOOD, URINE NEG (NEG); GLUCOSE,URINE NEG (NEG); KETONE, URINE NEG (NEG); MUCUS URINE FEW /lpf (OCC); NITRITE,URINE NEG (NEG); SQUAMOUS EPITHELIAL CELL URINE <1 /hpf (0-5); URINE COLOR YELLOW (YELLW/STRAW); URINE LEUKOCYTE ESTERASE NEG (NEG)
[2017-06-15] MEDS: ENOXAPARIN SODIUM 40 MG/0.4 ML SYRINGE SQ SCH (17:18)
[2017-06-15] MEDS ORDERED: ROCURONIUM INJ 100 MG/10 ML VIAL IV ONE (17:30)
[2017-06-15] MEDS ORDERED: fentaNYL CITRATE 250 MCG/5 ML AMP IV PUSH ONE (17:30)
[2017-06-15] MEDS ORDERED: MIDAZOLAM HCL 5 MG/ML VIAL (1 ML) ONE (17:30)
[2017-06-15] MEDS ORDERED: MIDAZOLAM HCL 5 MG/ML VIAL (1 ML) IV ONE (17:45)
--- NOTE | 2017-06-15 18:50 | PD.PROCEDR ---
Procedure Note Procedure Percutaneous Dilation Tracheostomy Tube Placement Diagnosis: Chronic respiratory failure Indications: Acute on chronic respiratory failure with failure to wean from mechanical ventilation Anesthesia: Versed 10 mg IV, fentanyl 100 g IV Neuromuscular Blockade: Rocuronium 100 mg IV Anesthesia was provided by the bedside RN Description of the Procedure: The patient was sedated and paralyzed. The patient was positioned in the supine position with a chest roll. The patient's neck was slightly extended. Landmarks were palpated and the anatomy of the anterior neck was deemed normal. A time out procedure was performed. The patient was placed on a volume control mode of ventilation, on 100% FiO2. The patient was prepped and draped sterilely. A bronchoscope was inserted into the endotracheal tube for endoscopic guidance (see separate bronchoscopy procedure note). After negative aspiration, 1% lidocaine with 1:100k epinephrine was injected subcutaneously in the midline neck using a 21g needle for local anesthesia. An approximately 2cm skin incision was made using a #15 blade. The cricoid cartilage, thyroid tissue , and tracheal rings were palpated in the midline. Under direct bronchoscopic guidance, the cuff of the endotracheal tube was deflated and the endotracheal tube was retracted to a level above the level of the skin incision. At this point, a 15g introducer needle/catheter was advanced midline under negative aspiration with saline filled syringe until bubbles were seen and the needle and catheter were visualized in the lumen of the trachea. The needle was withdrawn leaving the catheter in place. A 0.052 in diameter J-shaped guidewire was advanced through the catheter into the lumen of the trachea, under direct bronchoscopic visualization. Using a modified Seldinger technique , a 14 Fr, 4.5 cm introducer dilator was used, followed by a Blue Rhino Percutaneous Tracheostomy Dilator, and finally a 28 Fr tracheostomy loading catheter with 8.0 Cuffed Shiley tracheostomy tube. The loading catheter and guidewire were removed and the tracheostomy tube was confirmed in the lumen of the trachea with bronchoscopy, end-tidal CO2, and returning volumes on the ventilator. The tracheostomy was sewn to the skin with interrupted 2.0 Prolene sutures, and a tracheostomy tie was applied to the skin. There were no immediate complications. There was minimal EBL. A chest x-ray has been ordered. Purification Director: Norman Munoz MD I personally performed the procedure. Beltran Sapp MD Jun 15, 2017 18:50
--- NOTE | 2017-06-15 19:12 | PD.PROCEDR ---
Procedure Note Procedure Procedure DX: Respiratory Failure (J96.00) OP: Therapeutic Bronchoscopy (40025) Procedure: Time out, identification completed. On mechanical; ventilation with usual ICU monitoring in place. Through a side port in the ventilator circuit the proximal trachea was inspected. The orotracheal tube and the scope were withdrawn to the level of the cricoid and visualization for the percutaneous tracheostomy was provided, dictated separately. After trach insertion, the scope was passed through the new trach and a large amount of thick sputum was suctioned from the left mainstem bronchus. Anatomical branching was normal. The right side was inspected and suctioned for small amounts of thick white sputum. Branching was normal. The scope was removed. Sats were maintained > 95% throughout the procedure. Norman Munoz MD Jun 15, 2017 19:12
--- NOTE | 2017-06-15 19:32 | RADRPT ---
EXAM DATE/TIME: 06/15/2017 19:09 [facility] COMPARISON: No previous studies available for comparison. INDICATIONS : Post trach. MEDICAL HISTORY : Hepatitis C. Chronic obstructive pulmonary disease. Hypertension. Stroke. SURGICAL HISTORY : None. ENCOUNTER: Subsequent ACUITY: 1 week PAIN SCORE: Non-responsive. LOCATION: Bilateral chest FINDINGS: Tracheostomy has been placed in satisfactory position. Stable basilar airspace disease. No significan t effusion. No pneumothorax. CONCLUSION: 1. Basilar airspace consolidation, left greater than right. No significant effusion. No pneumothorax. Humphrey Weston MD on June 15, 2017 at 19:27 Board Certified Radiologist. This report was verified electronically.
[2017-06-15] MEDS: BENZTROPINE MESYLATE 1 MG TAB PO SCH (20:29)
[2017-06-15] MEDS: TAMSULOSIN HCL 0.4 MG CAP PO SCH (20:29)
[2017-06-15] MEDS: DONEPEZIL HCL 5 MG TAB PO SCH (20:29)
[2017-06-15] MEDS: ATORVASTATIN 40 MG TAB PO SCH (20:29)
[2017-06-16] VITALS (20 sets, daily range): BP systolic 112–127; BP diastolic 56–76; PULSE 47–90; RESP 16–26; TEMP 98.1–98.7; O2SAT 92–98
[2017-06-16] MEDS: PIPERACIL-TAZO 4.5 GM PREMIX 100 ML IV SCH ×3 (00:03→13:47)
[2017-06-16] MEDS: INSULIN NovoLIN REGULAR SUPPLEMENTAL SCALE SQ SCH ×5 (00:04→20:00)
[2017-06-16] MEDS: fentaNYL DRIP 250 ML IV PRN ×2 (00:04→23:37)
[2017-06-16] MEDS: PROPOFOL 1000 MG/100 ML INJ 100 ML IV PRN ×2 (02:06→15:33)
[2017-06-16] MEDS: CHLORHEXIDINE GLUCONATE 2 % 1 PACK (2 CLOTHS) TOP SCH (04:00)
[2017-06-16] MEDS: RESP: ALBUTEROL 2.5 MG/IPRATROPIUM 0.5 MG NEB (SCH) NEB ×6 (04:12→23:16)
[2017-06-16] MEDS: FREE WATER G-TUBE SCH ×3 (05:01→22:00)
[2017-06-16 05:03] LABS: HEMATOCRIT 34.5 % (39.0-51.0); HEMOGLOBIN 11.3 GM/DL (13.0-17.0); MEAN CELL VOLUME 91.1 FL (80.0-100.0); MEAN CORPUSCULAR HEMOGLOBIN 29.9 PG (27.0-34.0); MEAN CORPUSCULAR HGB CONC 32.8 % (32.0-36.0); MEAN PLATELET VOLUME 8.8 FL (7.0-11.0); PLATELET COUNT 168 TH/MM3 (150-450); RED BLOOD COUNT 3.79 MIL/MM3 (4.50-5.90); RED CELL DISTRIBUTION WIDTH 14.5 % (11.6-17.2)
[2017-06-16 05:16] LABS: BICARBONATE 27.3 MEQ/L (21.0-32.0)
[2017-06-16] MEDS: SODIUM CHLORIDE 0.9% FLUSH 10 ML FLUSH IV FLUSH SCH ×2 (08:25→20:08)
[2017-06-16] MEDS: POTASSIUM CHLOR 20 MEQ PREMIX 100 ML IV PRN ×2 (08:25→10:30)
[2017-06-16] MEDS: methylPREDNISolone SOD SUCC 40 MG/1 ML VIAL IV PUSH SCH ×2 (08:25→20:08)
[2017-06-16] MEDS: amLODIPine BESYLATE 5 MG TAB PO SCH (08:26)
[2017-06-16] MEDS: NUTRISOURCE FIBER POWDER 1 PACK G-TUBE SCH ×2 (08:26→21:00)
[2017-06-16] MEDS: VENLAFAXINE HCL XR 75 MG CAP PO SCH (08:26)
[2017-06-16] MEDS: FAMOTIDINE 20 MG TAB PO SCH ×2 (08:26→20:09)
[2017-06-16] MEDS: CHLORHEXIDINE 0.12% (ORAL KIT) 15 ML CUP MT SCH ×2 (08:27→20:10)
[2017-06-16] MEDS: MICAFUNGIN INJ 150 MG in SODIUM CHLORIDE 0.9% INJ 100 ML IV SCH (13:48)
[2017-06-16] MEDS ORDERED: ALBUMIN 25% INJ 100 ML IV ONE (14:45)
[2017-06-16] MEDS ORDERED: FUROSEMIDE 40 MG/4 ML VIAL IV PUSH ONE (14:45)
--- NOTE | 2017-06-16 14:45 | HHI.CCPN ---
Subjective Remarks/Hospital Course 06/04: Mr. Reilly is a 61-year-old male with a history of COPD, hypertension, hyperlipidemia, CVA, schizoaffective disorder, bipolar disorder, GERD, renal failure, and arthritis who presented to the emergency room on 06/03/2017 from a retirement facility for evaluation of altered mental status. Upon review of the medical records from the retirement facility, it is noted he had a right lower lobe pneumonia diagnosed mid May. Head CT showed no acute infarct, acute hemorrhage, mass effect, or extra-axial fluid collection but scattered old lacunar infarcts within the bilateral basal ganglia. Mild periventricular and subcortical white matter small vessel ischemic changes bilaterally. Chest x-ray shows scattered bibasilar patchiness consistent with possible pneumonia. Per documentation : While in the ER, patient was in moderate respiratory distress with tachypnea and utilization of accessory abdominal muscles to breathe. His lung sounds are bilaterally congested and he is confused and a poor historian. His speech is slightly slurred but this is not a new finding. He was noted to be on 5 L nasal cannula with oxygen saturation of 94% in the emergency room. Patient was admitted to the ICU by the hospitalist service. He was initiated on heparin drip for suspicion of PE. He was also noted to have an elevated CPK and creatinine. His blood pressures were running high overnight. This afternoon patient developed worsening agitation and disorientation and confusion. His heparin was stopped earlier by Dr. Garcia due to low suspicion for PE. Patient developed worsening respiration status with respirations in the 30s and O2 sats in the mid 80s. Critical care medicine was consulted. Patient was emergently intubated by Dr. Elvira Gutierrez and I subsequently took over patient care. When I evaluated the patient he had been sedated for the intubation and is being placed on mechanical ventilation. History was obtained by discussion with Dr. Garcia, Dr. Gutierrez and ICU nursing staff as well as documentation in the chart. 06/05: Remains sedated, orally intubated on mechanical ventilation. 06/06: Sedated, orally intubated on mechanical ventilation. Failed C Pap trial today. Got extremely anxious on lightening sedation. 06/07 No events overnight. Sedated and intubated. Afebrile. 06/08 No events overnight. Sedated with Diprivan, Fentanyl and intubated. 06/09 Patient remains sedated and intubated. Afebrile.Did not tolerate CPAP trials yesterday. 06/10 Patient is sedated with Fentanyl and Diprivan. Afebrile. Did not tolerate CPAP yesterday as he became restless, agitated and tachycardic. 06/11 Patient remains sedated and intubated. Spiked fever with Tmax 101.1 06/12 No events overnight. Sedated and intubated. Afebrile. 06/13 Patient remains intubated and sedated with Diprivan, fentanyl in addition he is on Precedex drip. T:100.0 06/14 Patient remains sedated and intubated. Afebrile. Did not tolerate CPAP trials yesterday as he became tahypenic, tachycardic and restless. 06/15: agitation persists. respiratory failure persists. severely volume overloaded. has been intubated for almost 2 weeks. may require trach. CT abd/ pelvis without overt acute disease. no other source for fungemia. 06/16: s/p trach yesterday. no significant changes. Objective Vital Signs Date Time Temp Pulse Resp B/P (MAP) Pulse Ox O2 Delivery O2 Flow Rate FiO2 06/16/17 13:32 92 45 06/16/17 12:00 62 06/16/17 12:00 98.1 16 115/76 (89) 06/12/17 21:50 Ventilator Intake and Output 06/16/17 06/16/17 06/17/17 08:00 16:00 00:00 Intake Total 1130 ml 100 ml Output Total 850 ml Balance 280 ml 100 ml Result Diagram: 06/16/17 0433 06/16/17 0433 Imaging Last Impressions Chest X-Ray 06/12/17 0000 Signed Impressions: Service Date/Time: Monday, June 12, 2017 03:12 - CONCLUSION: Stable central and lower lung air space infiltrates. Yuri Streeter MD Abdomen X-Ray 06/11/17 0000 Signed Impressions: Service Date/Time: Sunday, June 11, 2017 19:52 - CONCLUSION: 1. Mild gaseous distention of colon. NG tip in stomach. Rectal temperature probe present. Humphrey Weston MD Head CT 06/04/17 0000 Signed Impressions: Service Date/Time: Sunday, June 04, 2017 18:46 - CONCLUSION: 1. No significant change compared to 06/03/17. 2. No acute infarct, acute hemorrhage , mass effect or extra-axial fluid collection. 3. Scattered old lacunar infarcts within the bilateral basal ganglia. 4. Mild periventricular and subcortical white matter small vessel ischemic changes bilaterally. 5. Old right posterior parietal infarct. 6. Chronic opacification of right mastoid air cells. Mckay Stone MD Chest CT 06/04/17 0000 Signed Impressions: Service Date/Time: Sunday, June 04, 2017 18:49 - CONCLUSION: 1. Right mid lung field and posterior bibasilar patchiness consistent with probable areas of pneumonia and/or atelectasis. Clinical correlation is recommended. 2. Tiny bilateral pleural effusions. 3. Cardiomegaly and coronary artery calcifications. 4. Minimal scattered emphysematous changes bilaterally. Mckay Stone MD Objective Remarks GENERAL: middle-aged male appears older than stated age, lying in bed, agitated , intubated. SKIN: Warm and dry. HEAD: Normocephalic. EYES: No scleral icterus. No injection or drainage. NECK: trachea midline. No JVD CARDIOVASCULAR: normal rate, regular rhythm. sinus by tele. RESPIRATORY: intubated. 45% fio2. full mechanical support. GASTROINTESTINAL: Abdomen soft, non-tender, nondistended. MUSCULOSKELETAL: No cyanosis. Neuro: sedated. RASS -2. moves all extremities spontaneously. does not follow commands. A/P Assessment and Plan Assessment: 61yM with history of schizoaffective d/o and bipolar d/o who presented with acute hypoxic respiratory failure and now fungemia without overt source. Not improving on pathway. No meaningful improvements over last 2 weeks. s/p trach 06/15 and will need PEG and long-term placement. Highly complex and off pathway. Plan: Neuro: Acute Metabolic Encephalopathy Agitated Delirium Schizoaffective disorder/bipolar disorder History of alcohol abuse History of CVA geodon 10mg IM q12h prn for agitation continue aricept and cogentin currently on propofol/fentanyl/precedex for goal RASS -2. add oxycodone scheduled per tube and wean off iv sedation, now s/p trach. CV: Uncontrolled hypertension - improving. hyperlipidemia Monitor HR and BP keep MAP>65mmHg On Lopressor 50mg Q12 .on Lipitor. Norvasc 5mg daily 2-D echo with normal LV/RV function Pulmo: Acute respiratory failure requiring mechanical ventilation - persistent. COPD exacerbation Resolving community acquired pneumonia Intubated and placed on mechanical ventilation on 06/04. Vent bundle, bronchodilators, solumederol 40mg Q12 continue daily SBTs. failing for tachypnea and agitation wean fio2 for spo2 > 90% trach 06/[address] Sapp/[facility] GI/liver: GERD Diarrhea Acute protein calorie malnutrition- severe Continue tube feeds-Glucerna 1.5@60ml/hr KUB abdomen: Mild gaseous distention Ct abd/pelvis 06/14: no acute disease C. Diff negative fiber to tube feeds rectal tube in place since 06/13. Renal/: ROSENDO/ CKD - resolved. Rhabdomyolysis - resolved. Acute intravascular volume overload Metabolic alkalosis daily BMP lasix 40mg iv x 1 with concentrated albumin. continue Donahue catheter given active diuresis. ID: Fungemia Community Acquired Pneumonia continue zosyn. continue micafungin ID involved Sputum cx: E.coli on 06/04 Endocrine: Hyperglycemia of critical illness SSI to high scale, q4h Heme: Anemia secondary to chronic disease Monitor CBC. does not meet transfusion triggers at this time. Prophylaxis: Pepcid/SCDs. SQ Lovenox Lines: PIV Donahue Dispo: remain in ICU. remains off pathway. Beltran Sapp MD Jun 16, 2017 14:45
--- NOTE | 2017-06-16 15:24 | PD.CONS ---
HPI History of Present Illness This is a 61 year old intubated male with chronic respiratory failure. GI consulted for PEG placement. PFSH Past Medical History PER EHR COPD Hypertension Hyperlipidemia CVA Schizoaffective disorder Bipolar disorder GERD Acute renal failure Arthritis Alcohol withdrawal seizures Past Surgical History PER EHR Left partial pneumonectomy Left hip surgery Coded Allergies: hydrochlorothiazide (Unverified Allergy, Intermediate, EFFECTS HIS SODIUM LEVEL, 02/12/17) PT STATES HE IS NOT ALLERGIC codeine (Unverified Adverse Reaction, Severe, 02/12/17) PT STATES HE IS NOT ALLERGIC Medications Current Medications Medications (Trade) Dose Ordered Sig/Solange Route PRN Reason Start Time Stop Time Status Last Admin Dose Admin Naloxone HCl (Narcan Inj) 0.4 mg UNSCH PRN IV PUSH SEE LABEL COMMENTS 06/03/17 21:45 Albuterol/ Ipratropium (Duoneb Neb) 1 ampule Q2HR NEB PRN NEB wheezing 06/03/17 22:45 06/08/17 08:21 Atorvastatin Calcium (Lipitor) 40 mg HS PO 06/04/17 21:00 06/15/17 20:29 Benztropine Mesylate (Cogentin) 1 mg HS PO 06/04/17 21:00 06/15/17 20:29 Donepezil HCl (Aricept) 5 mg HS PO 06/04/17 21:00 06/15/17 20:29 Risperidone (risperDAL) 1 mg HS PO 06/04/17 21:00 Future Hold Tamsulosin HCl (Flomax) 0.4 mg HS PO 06/04/17 21:00 06/15/17 20:29 Venlafaxine HCl (Effexor Xr) 150 mg DAILY PO 06/04/17 09:00 06/16/17 08:26 Miscellaneous Information 1 Q361D XX 06/04/17 03:45 Chlorhexidine Gluconate (Chlorhexidine 2% Cloth) Taper DAILY@04 TOP 06/04/17 04:00 05/31/18 03:59 06/15/17 04:00 Chlorhexidine Gluconate (Chlorhexidine 2% Cloth) 3 pack UNSCH PRN TOP HYGIENIC CARE 06/04/17 03:45 Amlodipine Besylate (Norvasc) 5 mg DAILY PO 06/04/17 12:00 06/16/17 08:26 Hydralazine HCl (Apresoline Inj) 10 mg Q4H PRN IV PUSH SBP> OR = 180, DBP> OR = 100 06/04/17 13:00 06/14/17 22:50 Sodium Chloride (NS Flush) 2 ml UNSCH PRN IV FLUSH FLUSH AFTER USING IV ACCESS 06/04/17 16:45 Sodium Chloride (NS Flush) 2 ml BID IV FLUSH 06/04/17 21:00 06/15/17 20:28 Chlorhexidine Gluconate (Peridex 0.12% Liq) 15 ml BID@08,20 MT 06/04/17 20:00 06/16/17 08:27 Propofol 100 ml @ 2.808 mls/ hr TITRATE PRN IV SEDATION 06/04/17 16:45 06/16/17 02:06 Labetalol HCl (Trandate Inj) 20 mg Q4H PRN IV PUSH SBP greater than 160mm Hg 06/04/17 17:00 06/10/17 15:35 Fentanyl Citrate 250 ml @ 5 mls/hr TITRATE PRN IV SEDATION 06/04/17 17:00 06/16/17 00:04 Enoxaparin Sodium (Lovenox Inj) 40 mg Q24H SQ 06/05/17 17:00 06/15/17 17:18 Water (Free Water) 250 ml Q8HR G-TUBE 06/09/17 10:00 06/16/17 13:48 Dexmedetomidine HCl 1000 mcg/ Sodium Chloride 250 ml @ 4.95 mls/hr TITRATE PRN IV SEDATION 06/10/17 09:30 06/15/17 03:25 Acetaminophen (Tylenol) 650 mg Q4H PRN PO fever 06/10/17 12:15 06/10/17 12:51 Famotidine (Pepcid) 20 mg Q12HR PO 06/10/17 21:00 06/16/17 08:26 Methylprednisolone Sodium Succinate (SoluMEDROL INJ) 40 mg Q12HR IV PUSH 06/12/17 21:00 06/16/17 08:25 Glucagon (Glucagon Inj) 1 mg UNSCH PRN OTHER HYPOGLYCEMIA-SEE COMMENTS 06/12/17 10:45 Micafungin Sodium 150 mg/Sodium Chloride 100 ml @ 100 mls/hr Q24H IV 06/14/17 14:00 06/16/17 13:48 Nystatin (Mycostatin Powder) 1 applic Q12HR PRN TOPICAL rash 06/14/17 11:00 Albuterol/ Ipratropium (Duoneb Neb) 1 ampule Q4HR NEB NEB 06/15/17 08:00 06/16/17 14:53 Magnesium Oxide (Mag-Ox) 800 mg UNSCH PRN PO For Magnesium 1.2 - 1.6 mg/dL 06/15/17 07:00 Magnesium Sulfate 4 gm/Sodium Chloride 100 ml @ 50 mls/hr UNSCH PRN IV For Magnesium 0.9 - 1.1 mg/dL 06/15/17 07:00 Magnesium Sulfate 2 gm/Sodium Chloride 100 ml @ 50 mls/hr UNSCH PRN IV For Magnesium 1.2 - 1.6 mg/dL 06/15/17 07:00 Potassium Chloride 100 ml @ 50 mls/hr Q2H PRN IV For Potassium 2.8 - 3.2 mEq/L 06/15/17 07:00 Potassium Chloride 100 ml @ 50 mls/hr Q2H PRN IV For Potassium 3.3 - 3.5 mEq/L 06/15/17 07:00 06/16/17 08:25 Potassium Chloride 100 ml @ 50 mls/hr Q2H PRN IV For Potassium 2.8 - 3.2 mEq/L 06/15/17 07:00 Potassium Chloride 100 ml @ 25 mls/hr UNSCH PRN IV For Potassium 3.3 - 3.5 mEq/L 06/15/17 07:00 Potassium Phosphate (K-Phos) 2,000 mg Q4H PRN PO For Phosphorus < 2.5 mg/dL 06/15/17 07:00 Potassium Phosphate (K-Phos) 2,000 mg UNSCH PRN PO/TUBE SEE LABEL COMMENTS 06/15/17 07:00 Potassium Phosphate 30 mmol/ Sodium Chloride 260 ml @ 42 mls/hr UNSCH PRN IV SEE LABEL COMMENTS 06/15/17 07:00 Sodium Phosphate 30 mmol/Sodium Chloride 250 ml @ 42 mls/hr UNSCH PRN IV For Phosphorus < 2.5 mg/dL 06/15/17 07:00 Dextrose (D50w (Vial) Inj) 25 ml UNSCH PRN IV PUSH HYPOGLYCEMIA-SEE COMMENTS 06/15/17 07:00 Insulin Human Regular (NovoLIN R SUPPLEMENTAL SCALE) 1 Q4HR SQ 06/15/17 08:00 06/16/17 13:47 Ziprasidone (Geodon Inj) 10 mg Q12H PRN IM AGITATION 06/15/17 07:15 Guar Gum (Nutrisource Fiber Powder) 2 pack BID G-TUBE 06/15/17 09:00 06/16/17 08:26 Oxycodone HCl (Roxicodone Intensol Liq) 10 mg Q4H PO 06/16/17 15:00 Albumin Human 100 ml @ 60 mls/hr ONCE ONCE IV 06/16/17 14:45 06/16/17 16:24 Piperacillin Sod/ Tazobactam Sod 4.5 gm/Sodium Chloride 100 ml @ 200 mls/hr Q6H IV 06/16/17 18:00 Family History Unable to obtain Social History PER EHR Tobacco: History of tobacco abuse for many years Alcohol: History of alcohol abuse Review of Systems ROS Unable to obtain GI Exam Vitals I&O Vital Signs Date Time Temp Pulse Resp B/P (MAP) Pulse Ox O2 Delivery O2 Flow Rate FiO2 06/16/17 13:32 92 45 06/16/17 12:00 62 06/16/17 12:00 45 06/16/17 12:00 98.1 63 16 115/76 (89) 96 06/16/17 11:00 45 06/16/17 10:26 97 60 06/16/17 10:00 48 06/16/17 08:27 97 60 06/16/17 08:00 65 06/16/17 08:00 47 06/16/17 08:00 98.3 47 17 122/70 (87) 96 06/16/17 06:00 82 06/16/17 05:10 98 70 06/16/17 04:00 98.5 48 16 121/64 (83) 98 06/16/17 04:00 70 06/16/17 04:00 48 06/16/17 02:00 51 06/16/17 00:30 97 70 06/16/17 00:00 50 06/16/17 00:00 98.7 50 16 112/56 (74) 96 06/16/17 00:00 70 06/15/17 22:00 48 06/15/17 20:10 97 100 06/15/17 20:00 100 06/15/17 20:00 99.1 58 17 98/57 (71) 96 06/15/17 20:00 58 06/15/17 18:25 100 100 06/15/17 18:00 58 14 117/59 (78) 96 06/15/17 18:00 58 06/15/17 17:00 72 16 122/62 (82) 96 06/15/17 16:13 95 60 06/15/17 16:00 61 06/15/17 16:00 98.5 61 17 114/58 (76) 93 06/15/17 16:00 50 I/O 06/15/17 06/15/17 06/15/17 06/16/17 06/16/17 06/16/17 07:00 15:00 23:00 07:00 15:00 23:00 Intake Total 1895 ml 1362 ml 1130 ml 100 ml Output Total 900 ml 2150 ml 850 ml Balance 995 ml -788 ml 280 ml 100 ml IV Total 945 ml 510 ml 484 ml 100 ml Tube Feeding 450 ml 352 ml 146 ml Other 500 ml 500 ml 500 ml Output Urine Total 800 ml 2050 ml 650 ml Stool Total 100 ml 100 ml 200 ml # Voids 2 Imaging Last Impressions Chest X-Ray 06/15/17 0600 Signed Impressions: Service Date/Time: Thursday, June 15, 2017 03:30 - CONCLUSION: No significant interval change with persistent patchy bilateral lower lung zone predominant opacity. Rosas Rowell MD Abdomen/Pelvis CT 06/14/17 0000 Signed Impressions: Service Date/Time: Wednesday, June 14, 2017 22:32 - CONCLUSION: 1. Increasing basilar lung consolidation since chest CT from June 04. 2. Mild ileus. No bowel obstruction, free air or free fluid. 3. Left hip replacement. Advanced osteoarthritis right hip. NG in stomach. Rectal tube present. Humphrey Weston MD Abdomen X-Ray 06/11/17 0000 Signed Impressions: Service Date/Time: Sunday, June 11, 2017 19:52 - CONCLUSION: 1. Mild gaseous distention of colon. NG tip in stomach. Rectal temperature probe present. Humphrey Weston MD Head CT 06/04/17 0000 Signed Impressions: Service Date/Time: Sunday, June 04, 2017 18:46 - CONCLUSION: 1. No significant change compared to 06/03/17. 2. No acute infarct, acute hemorrhage , mass effect or extra-axial fluid collection. 3. Scattered old lacunar infarcts within the bilateral basal ganglia. 4. Mild periventricular and subcortical white matter small vessel ischemic changes bilaterally. 5. Old right posterior parietal infarct. 6. Chronic opacification of right mastoid air cells. Mckay Stone MD Chest CT 06/04/17 0000 Signed Impressions: Service Date/Time: Sunday, June 04, 2017 18:49 - CONCLUSION: 1. Right mid lung field and posterior bibasilar patchiness consistent with probable areas of pneumonia and/or atelectasis. Clinical correlation is recommended. 2. Tiny bilateral pleural effusions. 3. Cardiomegaly and coronary artery calcifications. 4. Minimal scattered emphysematous changes bilaterally. Mckay Stone MD Laboratory Test 06/16/17 04:33 White Blood Count 13.0 TH/MM3 Red Blood Count 3.79 MIL/MM3 Hemoglobin 11.3 GM/DL Hematocrit 34.5 % Mean Corpuscular Volume 91.1 FL Mean Corpuscular Hemoglobin 29.9 PG Mean Corpuscular Hemoglobin Concent 32.8 % Red Cell Distribution Width 14.5 % Platelet Count 168 TH/MM3 Mean Platelet Volume 8.8 FL Blood Urea Nitrogen 45 MG/DL Creatinine 1.00 MG/DL Random Glucose 169 MG/DL Calcium Level 8.0 MG/DL Sodium Level 143 MEQ/L Potassium Level 3.3 MEQ/L Chloride Level 108 MEQ/L Carbon Dioxide Level 27.3 MEQ/L Anion Gap 8 MEQ/L Estimat Glomerular Filtration Rate 76 ML/MIN Date/Time Source Procedure Growth Status 06/14/17 12:35 Blood Peripheral Aerobic Blood Culture - Preliminary NO GROWTH IN 2 DAYS Resulted 06/14/17 12:35 Blood Peripheral Anaerobic Blood Culture - Preliminary NO GROWTH IN 2 DAYS Resulted 06/10/17 13:20 Sputum Endotracheal Gram Stain - Final Complete 06/10/17 13:20 Sputum Endotracheal Sputum Culture - Final HEAVY GROWTH NORMAL RESPIRATORY RUBI Complete 06/10/17 12:45 Urine Catheterized Urine Urine Culture - Final NO GROWTH IN 48 HOURS. Complete Physical Examination HEENT: Normocephalic; atraumatic; no jaundice NECK: Neck is supple, no JVD, no lymphadenopathy. CHEST: Intubated. CARDIAC: RRR ABDOMEN: Soft, nondistended, nontender; no hepatosplenomegaly; bowel sounds are present in all four quadrants. EXTREMITIES: No clubbing, cyanosis, or edema. SKIN: Normal; no rash; no jaundice. MANAGER CAREER: Intubated, agitated Assessment and Plan Plan ASSESSMENT: - Chronic respiratory failure requiring PEG placement. PLAN: - EGD with PEG placement on Saturday - Obtain consents - Supportive care - Further recommendations to follow based on results of above Patient seen and examined by Dr. Farooq and myself and this note is written on his behalf. Deena Hernandez Jun 16, 2017 15:24
[2017-06-16] MEDS: ENOXAPARIN SODIUM 40 MG/0.4 ML SYRINGE SQ SCH (15:33)
[2017-06-16] MEDS: oxyCODONE HCL ORAL CONC 5 MG/0.25 ML SYRINGE PO SCH ×2 (15:34→18:15)
[2017-06-16] MEDS: PIPERACILLIN/TAZ 4.5 GM VIAL 4.5 GM in SODIUM CHLORIDE 0.9% INJ 100 ML IV SCH (17:50)
[2017-06-16] MEDS: BENZTROPINE MESYLATE 1 MG TAB PO SCH (20:09)
[2017-06-16] MEDS: TAMSULOSIN HCL 0.4 MG CAP PO SCH (20:09)
[2017-06-16] MEDS: DONEPEZIL HCL 5 MG TAB PO SCH (20:09)
[2017-06-16] MEDS: ATORVASTATIN 40 MG TAB PO SCH (20:09)
[2017-06-17] VITALS (18 sets, daily range): BP systolic 103–152; BP diastolic 56–75; PULSE 50–101; RESP 0–34; TEMP 97.6–98.9; O2SAT 90–98
[2017-06-17] MEDS: INSULIN NovoLIN REGULAR SUPPLEMENTAL SCALE SQ SCH ×6 (00:16→20:00)
[2017-06-17] MEDS: PIPERACILLIN/TAZ 4.5 GM VIAL 4.5 GM in SODIUM CHLORIDE 0.9% INJ 100 ML IV SCH ×4 (00:16→18:29)
[2017-06-17] MEDS: oxyCODONE HCL ORAL CONC 5 MG/0.25 ML SYRINGE PO SCH ×7 (00:16→23:07)
[2017-06-17] MEDS: DEXMEDETOMIDINE INJ 1,000 MCG in SODIUM CHLOR 0.9% 250 ML INJ 240 ML IV PRN (02:46)
[2017-06-17] MEDS: PROPOFOL 1000 MG/100 ML INJ 100 ML IV PRN ×3 (02:46→16:07)
[2017-06-17] MEDS: RESP: ALBUTEROL 2.5 MG/IPRATROPIUM 0.5 MG NEB (SCH) NEB ×6 (03:29→23:28)
[2017-06-17] MEDS: CHLORHEXIDINE GLUCONATE 2 % 1 PACK (2 CLOTHS) TOP SCH (04:00)
[2017-06-17] MEDS: FREE WATER G-TUBE SCH ×3 (06:00→20:25)
[2017-06-17 07:01] LABS: HEMATOCRIT 33.6 % (39.0-51.0); HEMOGLOBIN 10.9 GM/DL (13.0-17.0); MEAN CELL VOLUME 90.6 FL (80.0-100.0); MEAN CORPUSCULAR HEMOGLOBIN 29.4 PG (27.0-34.0); MEAN CORPUSCULAR HGB CONC 32.4 % (32.0-36.0); MEAN PLATELET VOLUME 8.6 FL (7.0-11.0); PLATELET COUNT 197 TH/MM3 (150-450); RED BLOOD COUNT 3.71 MIL/MM3 (4.50-5.90); RED CELL DISTRIBUTION WIDTH 14.6 % (11.6-17.2); WHITE BLOOD COUNT 12.6 TH/MM3 (4.0-11.0)
[2017-06-17 07:11] LABS: BICARBONATE 22.9 MEQ/L (21.0-32.0); CALCIUM 8.1 MG/DL (8.5-10.1); CREATININE 1.01 MG/DL (0.60-1.30)
[2017-06-17] MEDS: methylPREDNISolone SOD SUCC 40 MG/1 ML VIAL IV PUSH SCH (08:20)
[2017-06-17] MEDS: SODIUM CHLORIDE 0.9% FLUSH 10 ML FLUSH IV FLUSH SCH ×2 (08:21→20:25)
[2017-06-17] MEDS: VENLAFAXINE HCL XR 75 MG CAP PO SCH (08:21)
[2017-06-17] MEDS: amLODIPine BESYLATE 5 MG TAB PO SCH (08:21)
[2017-06-17] MEDS: FAMOTIDINE 20 MG TAB PO SCH ×2 (08:21→20:23)
[2017-06-17] MEDS: NUTRISOURCE FIBER POWDER 1 PACK G-TUBE SCH ×2 (08:37→21:00)
[2017-06-17] MEDS: CHLORHEXIDINE 0.12% (ORAL KIT) 15 ML CUP MT SCH ×2 (10:30→20:24)
[2017-06-17] MEDS: POTASSIUM CHLOR 20 MEQ PREMIX 100 ML IV PRN ×4 (11:39→18:35)
[2017-06-17] MEDS: MICAFUNGIN INJ 150 MG in SODIUM CHLORIDE 0.9% INJ 100 ML IV SCH (13:45)
--- NOTE | 2017-06-17 15:15 | GIPROC ---
[facility] [address]. [facility], [address] EGD WITH PEG PROCEDURE REPORT EXAM DATE: 06/17/2017 PATIENT NAME: Darrell Reilly MR#: [id number] BIRTHDATE: 1955 ATTENDING: Linette Root MD ORDER #: [id number] EXTRUDER OPERATOR VERTICAL: Angella Veliz RN STATUS: inpatient INDICATIONS: The patient is a 61 yr old male here for an EGD with PEG due to placement of PEG PROCEDURE PERFORMED: EGD with PEG placement MEDICATIONS: Per Anesthesia and None. TOPICAL ANESTHETIC: none CONSENT: The patient understands the risks and benefits of the procedure and understands that these risks include, but are not limited to: sedation, allergic reaction, infection, perforation and/or bleeding. Alternative means of evaluation and treatment include, among others: physical exam, x-rays, and/or surgical intervention. The patient elects to proceed with this endoscopic procedure. medical equipment was checked for proper function. Hand hygiene and appropriate measures for infection prevention was taken. After the risks, benefits and alternatives of the procedure were thoroughly explained, Informed consent was verified, confirmed and timeout was successfully executed by the treatment team. The patient was anesthetized with topical anesthesia and the Pentax [id number] endoscope was introduced through the mouth and advanced to the second portion of the duodenum. The instrument was slowly withdrawn as the mucosa was fully examined. The esophagus and gastroesophageal junction were completely normal in appearance. The stomach was entered and closely examined. The antrum, angularis, and lesser curvature were well visualized, including a retroflexed view of the cardia and fundus. The stomach wall was normally distensable. The scope passed easily through the pylorus into the duodenum. The duodenal bulb was normal in appearance, as was the postbulbar duodenum. The stomach was then inflated with air, and by a combination of transillumination and manual palpation, the site for the gastrostomy tube placement was selected and marked on the anterior abdominal wall. The skin of the anterior abdomen was surgically prepped and draped with sterile towels. Utilizing strict sterile technique, the selected site was then anesthetized with 1% xylocaine by injection into the skin and subcutaneous tissue. A 1 cm incision was made through the skin and subcutaneous tissue, and the needle/cannula assembly was then passed through the abdominal wall and through the anterior wall of the stomach, maintaining visualization with the endoscope. A snare device previously placed through the instrument channel was then opened and placed around the cannula, the needle was removed, and the insertion wire was passed through the cannula and into the stomach lumen. The snare was then loosened from the cannula, and repositioned to snare the insertion wire. The snare was then pulled up to the endoscope distal tip, and the scope was then withdrawn bringing with it the snare and insertion wire. The insertion wire was then released from the snare, and then loop-attached to the Bard 20 Fr gastrostomy tube. Using the "pull technique", the G-tube was then pulled into place by traction on the insertion wire at the abdominal wall end. The G-tube insertion site was then cleansed once again, and the external bolster was placed over the tube to secure it to the abdominal wall. A sterile dressing was then applied, and the procedure terminated. no abnormalities The gastroscope was then slowly withdrawn and removed. ADVERSE EVENT: There were no complications. IMPRESSIONS: 1. The esophagus and gastroesophageal junction were completely normal in appearance. 2. Zenker Diverticulum seen 3. The stomach was entered and closely examined. The antrum, angularis, and lesser curvature were well visualized, including a retroflexed view of the cardia and fundus. The stomach wall was normally distensable. The scope passed easily through the pylorus into the duodenum. NG trauma noted 4. The duodenal bulb was normal in appearance, as was the postbulbar duodenum. RECOMMENDATIONS: PEG recomendations: 1- NPO for 6 hours except for meds 2- Flush PEG tube every 6 hours with water and after each PEG feeding 3- May resume regular diet in the morning 4- May use Ensure or Boost etc. for PEG tube feeding REPEAT EXAM: procedure as needed Linette Root MD eSigned: Linette Root MD 06/17/2017 3:15 PM cc: PATIENT NAME: Darrell Reilly MR#: [id number]
--- NOTE | 2017-06-17 15:42 | HHI.PR ---
Subjective Remarks ON THE VENTILATOR sedated TRACH OK PEG PLACED TODAY Objective Vital Signs Date Time Temp Pulse Resp B/P (MAP) Pulse Ox O2 Delivery O2 Flow Rate FiO2 06/17/17 14:00 51 06/17/17 13:46 17 06/17/17 12:00 45 06/17/17 12:00 71 06/17/17 12:00 98.2 71 28 114/56 (75) 90 06/17/17 11:56 92 45 06/17/17 10:00 80 06/17/17 08:45 96 45 06/17/17 08:00 50 06/17/17 08:00 45 06/17/17 08:00 97.6 50 34 130/62 (84) 96 06/17/17 06:00 50 06/17/17 05:01 94 45 06/17/17 04:00 98.4 101 20 103/65 (78) 96 06/17/17 04:00 45 06/17/17 04:00 101 06/17/17 02:00 58 06/17/17 01:18 93 45 06/17/17 00:00 45 06/17/17 00:00 72 06/17/17 00:00 98.8 72 28 123/58 (79) 93 06/16/17 22:47 93 45 06/16/17 22:00 81 06/16/17 20:00 45 06/16/17 20:00 98.3 78 26 127/68 (87) 94 06/16/17 20:00 78 06/16/17 19:50 96 45 06/16/17 18:00 49 06/16/17 16:59 94 45 06/16/17 16:00 45 06/16/17 16:00 62 06/16/17 16:00 98.2 90 16 125/70 (88) 96 I/O 06/16/17 06/16/17 06/16/17 06/17/17 06/17/17 06/17/17 07:00 15:00 23:00 07:00 15:00 23:00 Intake Total 1130 ml 300 ml 1407 ml 557 ml Output Total 850 ml 1700 ml 1500 ml Balance 280 ml 300 ml -293 ml -943 ml IV Total 484 ml 300 ml 400 ml 557 ml Tube Feeding 146 ml 507 ml Other 500 ml 500 ml Output Urine Total 650 ml 1200 ml 900 ml Stool Total 200 ml 300 ml 100 ml Gastric Drainage Total 200 ml 500 ml Result Diagram: 06/17/17 0600 06/17/17 06 Objective Remarks GENERAL: SKIN: Warm and dry. HEAD: Atraumatic. Normocephalic. EYES: Pupils equal and round. No scleral icterus. No injection or drainage. ENT: No nasal bleeding or discharge. Mucous membranes pink and moist. NECK: Trachea midline. No JVD. CARDIOVASCULAR: Regular rate and rhythm. RESPIRATORY: No accessory muscle use. SCATTERED RHONCHI. GASTROINTESTINAL: Abdomen soft, non-tender, nondistended. Hepatic and splenic margins not palpable. MUSCULOSKELETAL: Extremities without clubbing, cyanosis, or edema. No obvious deformities. NEUROLOGICAL: Awake and alert. No obvious cranial nerve deficits. Motor grossly within normal limits. Five out of 5 muscle strength in the arms and legs. Normal speech. PSYCHIATRIC: Appropriate mood and affect; insight and judgment normal. Assessment and Plan Assessment and Plan RESPIRATORY FAILURE COPD PNA PLAN VENT SUPPORT WEAN TOLERATED BRONCHODILATORS PULM. TOILET Marcos Rodríguez MD Jun 17, 2017 15:42
[2017-06-17] MEDS: fentaNYL DRIP 250 ML IV PRN (16:07)
--- NOTE | 2017-06-17 16:21 | HHI.CCPN ---
Subjective Remarks/Hospital Course 06/04: Mr. Reilly is a 61-year-old male with a history of COPD, hypertension, hyperlipidemia, CVA, schizoaffective disorder, bipolar disorder, GERD, renal failure, and arthritis who presented to the emergency room on 06/03/2017 from a detention facility for evaluation of altered mental status. Upon review of the medical records from the detention facility, it is noted he had a right lower lobe pneumonia diagnosed mid May. Head CT showed no acute infarct, acute hemorrhage, mass effect, or extra-axial fluid collection but scattered old lacunar infarcts within the bilateral basal ganglia. Mild periventricular and subcortical white matter small vessel ischemic changes bilaterally. Chest x-ray shows scattered bibasilar patchiness consistent with possible pneumonia. Per documentation : While in the ER, patient was in moderate respiratory distress with tachypnea and utilization of accessory abdominal muscles to breathe. His lung sounds are bilaterally congested and he is confused and a poor historian. His speech is slightly slurred but this is not a new finding. He was noted to be on 5 L nasal cannula with oxygen saturation of 94% in the emergency room. Patient was admitted to the ICU by the hospitalist service. He was initiated on heparin drip for suspicion of PE. He was also noted to have an elevated CPK and creatinine. His blood pressures were running high overnight. This afternoon patient developed worsening agitation and disorientation and confusion. His heparin was stopped earlier by Dr. Garcia due to low suspicion for PE. Patient developed worsening respiration status with respirations in the 30s and O2 sats in the mid 80s. Critical care medicine was consulted. Patient was emergently intubated by Dr. Elvira Gutierrez and I subsequently took over patient care. When I evaluated the patient he had been sedated for the intubation and is being placed on mechanical ventilation. History was obtained by discussion with Dr. Garcia, Dr. Gutierrez and ICU nursing staff as well as documentation in the chart. 06/05: Remains sedated, orally intubated on mechanical ventilation. 06/06: Sedated, orally intubated on mechanical ventilation. Failed C Pap trial today. Got extremely anxious on lightening sedation. 06/07 No events overnight. Sedated and intubated. Afebrile. 06/08 No events overnight. Sedated with Diprivan, Fentanyl and intubated. 06/09 Patient remains sedated and intubated. Afebrile.Did not tolerate CPAP trials yesterday. 06/10 Patient is sedated with Fentanyl and Diprivan. Afebrile. Did not tolerate CPAP yesterday as he became restless, agitated and tachycardic. 06/11 Patient remains sedated and intubated. Spiked fever with Tmax 101.1 06/12 No events overnight. Sedated and intubated. Afebrile. 06/13 Patient remains intubated and sedated with Diprivan, fentanyl in addition he is on Precedex drip. T:100.0 06/14 Patient remains sedated and intubated. Afebrile. Did not tolerate CPAP trials yesterday as he became tahypenic, tachycardic and restless. 06/15: agitation persists. respiratory failure persists. severely volume overloaded. has been intubated for almost 2 weeks. may require trach. CT abd/ pelvis without overt acute disease. no other source for fungemia. 06/16: s/p trach yesterday. no significant changes. 06/17: plan for PEG today. agitation persists with significant delirium. no other significant changes. Objective Vital Signs Date Time Temp Pulse Resp B/P (MAP) Pulse Ox O2 Delivery O2 Flow Rate FiO2 06/17/17 14:00 51 06/17/17 13:46 17 06/17/17 12:00 45 06/17/17 12:00 98.2 114/56 (75) 90 Intake and Output 06/17/17 06/17/17 06/18/17 08:00 16:00 00:00 Intake Total 307 ml 100 ml Output Total 1500 ml Balance -1193 ml 100 ml Result Diagram: 06/17/17 0600 06/17/17 0600 Imaging Last Impressions Chest X-Ray 06/12/17 0000 Signed Impressions: Service Date/Time: Monday, June 12, 2017 03:12 - CONCLUSION: Stable central and lower lung air space infiltrates. Yuri Streeter MD Abdomen X-Ray 06/11/17 0000 Signed Impressions: Service Date/Time: Sunday, June 11, 2017 19:52 - CONCLUSION: 1. Mild gaseous distention of colon. NG tip in stomach. Rectal temperature probe present. Humphrey Weston MD Head CT 06/04/17 0000 Signed Impressions: Service Date/Time: Sunday, June 04, 2017 18:46 - CONCLUSION: 1. No significant change compared to 06/03/17. 2. No acute infarct, acute hemorrhage , mass effect or extra-axial fluid collection. 3. Scattered old lacunar infarcts within the bilateral basal ganglia. 4. Mild periventricular and subcortical white matter small vessel ischemic changes bilaterally. 5. Old right posterior parietal infarct. 6. Chronic opacification of right mastoid air cells. Mckay Stone MD Chest CT 06/04/17 0000 Signed Impressions: Service Date/Time: Sunday, June 04, 2017 18:49 - CONCLUSION: 1. Right mid lung field and posterior bibasilar patchiness consistent with probable areas of pneumonia and/or atelectasis. Clinical correlation is recommended. 2. Tiny bilateral pleural effusions. 3. Cardiomegaly and coronary artery calcifications. 4. Minimal scattered emphysematous changes bilaterally. Mckay Stone MD Objective Remarks GENERAL: middle-aged male appears older than stated age, lying in bed, agitated , intubated. SKIN: Warm and dry. HEAD: Normocephalic. EYES: No scleral icterus. No injection or drainage. NECK: trachea midline. No JVD CARDIOVASCULAR: normal rate, regular rhythm. sinus by tele. RESPIRATORY: intubated. 45% fio2. full mechanical support. GASTROINTESTINAL: Abdomen soft, non-tender, nondistended. MUSCULOSKELETAL: No cyanosis. Neuro: sedated. RASS -2. moves all extremities spontaneously. does not follow commands. A/P Assessment and Plan Assessment: 61yM with history of schizoaffective d/o and bipolar d/o who presented with acute hypoxic respiratory failure and now fungemia without overt source. Not improving on pathway. No meaningful improvements over last 2 weeks. s/p trach 06/15 and PEG placement today. remains off pathway. Plan: Neuro: Acute Metabolic Encephalopathy Agitated Delirium - persistent. Schizoaffective disorder/bipolar disorder History of alcohol abuse History of CVA geodon 10mg IM q12h prn for agitation continue aricept and cogentin currently on propofol/fentanyl/precedex for goal RASS -2. d/c propofol and fentanyl continue precedex oxycodone 10mg po q4h add clonidine 0.2mg po q8h CV: Uncontrolled hypertension - improving. hyperlipidemia Monitor HR and BP keep MAP>65mmHg On Lopressor 50mg Q12 .on Lipitor. Norvasc 5mg daily 2-D echo with normal LV/RV function clonidine 0.2mg po q8h Pulmo: Acute respiratory failure requiring mechanical ventilation - persistent. COPD exacerbation Resolving community acquired pneumonia Intubated and placed on mechanical ventilation on 06/04. Vent bundle, bronchodilators, solumederol 40mg Q12 continue daily SBTs. failing for tachypnea and agitation wean fio2 for spo2 > 90% trach 06/[address] Sapp/[facility]/liver: GERD Diarrhea Acute protein calorie malnutrition- severe Continue tube feeds-Glucerna 1.5@60ml/hr KUB abdomen: Mild gaseous distention Ct abd/pelvis 06/14: no acute disease C. Diff negative fiber to tube feeds rectal tube in place since 06/13. Renal/: ROSENDO/ CKD - resolved. Rhabdomyolysis - resolved. Acute intravascular volume overload Metabolic alkalosis daily BMP d/c lazaro cather today hold further diuresis, cr slightly uptrended. albumin 25% iv x 1. ID: Fungemia Community Acquired Pneumonia continue zosyn. continue micafungin ID involved Sputum cx: E.coli on 06/04 Endocrine: Hyperglycemia of critical illness SSI to high scale, q4h Heme: Anemia secondary to chronic disease Monitor CBC. does not meet transfusion triggers at this time. Prophylaxis: Pepcid/SCDs. SQ Lovenox Lines: PIV Dispo: remain in ICU. remains off pathway. Beltran Sapp MD Jun 17, 2017 16:20
[2017-06-17] MEDS ORDERED: ALBUMIN 25% INJ 100 ML IV ONE (16:30)
--- NOTE | 2017-06-17 16:42 | HHI.PR ---
Addendum to Inpatient Note Additional Information ID - pt seen around 1500 - full note to follow Ml Wiseman MD Jun 17, 2017 16:42
[2017-06-17] MEDS: ZIPRASIDONE MESYLATE 20 MG VIAL IM PRN (18:27)
[2017-06-17] MEDS: cloNIDine HCL 0.2 MG TAB PO SCH ×2 (18:35→20:23)
[2017-06-17] MEDS: DONEPEZIL HCL 5 MG TAB PO SCH (20:24)
[2017-06-17] MEDS: BENZTROPINE MESYLATE 1 MG TAB PO SCH (20:24)
[2017-06-17] MEDS: ATORVASTATIN 40 MG TAB PO SCH (20:24)
[2017-06-17] MEDS: TAMSULOSIN HCL 0.4 MG CAP PO SCH (20:25)
--- NOTE | 2017-06-17 20:37 | HHI.IDPN ---
Subjective Subjective Remarks Large volume diarrhea low grade fever C glabrate in 07/[address] abd/pel w/o acute pathology pt sp PEG/trach Antibiotics zaosyn vancomycin Allergies: Coded Allergies: hydrochlorothiazide (Unverified Allergy, Intermediate, EFFECTS HIS SODIUM LEVEL, 02/12/17) PT STATES HE IS NOT ALLERGIC codeine (Unverified Adverse Reaction, Severe, 02/12/17) PT STATES HE IS NOT ALLERGIC Objective . Vital Signs Date Time Temp Pulse Resp B/P (MAP) Pulse Ox O2 Delivery O2 Flow Rate FiO2 06/17/17 18:42 22 06/17/17 18:00 96 06/17/17 16:53 96 45 06/17/17 16:00 45 06/17/17 16:00 78 06/17/17 16:00 98.8 51 0 126/58 (80) 94 06/17/17 14:00 51 06/17/17 12:00 45 06/17/17 12:00 71 06/17/17 12:00 98.2 71 28 114/56 (75) 90 06/17/17 11:56 92 45 06/17/17 10:00 80 06/17/17 08:45 96 45 06/17/17 08:00 50 06/17/17 08:00 45 06/17/17 08:00 97.6 50 34 130/62 (84) 96 06/17/17 06:00 50 06/17/17 05:01 94 45 06/17/17 04:00 98.4 101 20 103/65 (78) 96 06/17/17 04:00 45 06/17/17 04:00 101 06/17/17 02:00 58 06/17/17 01:18 93 45 06/17/17 00:00 45 06/17/17 00:00 72 06/17/17 00:00 98.8 72 28 123/58 (79) 93 06/16/17 22:47 93 45 06/16/17 22:00 81 06/17/17 06/17/17 06/18/17 15:00 23:00 07:00 Intake Total 520 ml Output Total 1300 ml Balance -780 ml IV Total 300 ml Other 220 ml Output Urine Total 800 ml Stool Total 100 ml Gastric Drainage Total 400 ml . Laboratory Tests Test 06/16/17 04:33 06/17/17 06:00 White Blood Count 13.0 TH/MM3 12.6 TH/MM3 Red Blood Count 3.79 MIL/MM3 3.71 MIL/MM3 Hemoglobin 11.3 GM/DL 10.9 GM/DL Hematocrit 34.5 % 33.6 % Mean Corpuscular Volume 91.1 FL 90.6 FL Mean Corpuscular Hemoglobin 29.9 PG 29.4 PG Mean Corpuscular Hemoglobin Concent 32.8 % 32.4 % Red Cell Distribution Width 14.5 % 14.6 % Platelet Count 168 TH/MM3 197 TH/MM3 Mean Platelet Volume 8.8 FL 8.6 FL Laboratory Tests Test 06/16/17 04:33 06/17/17 06:00 Blood Urea Nitrogen 45 MG/DL 46 MG/DL Creatinine 1.00 MG/DL 1.01 MG/DL Random Glucose 169 MG/DL 169 MG/DL Calcium Level 8.0 MG/DL 8.1 MG/DL Sodium Level 143 MEQ/L 142 MEQ/L Potassium Level 3.3 MEQ/L 3.1 MEQ/L Chloride Level 108 MEQ/L 109 MEQ/L Carbon Dioxide Level 27.3 MEQ/L 22.9 MEQ/L Anion Gap 8 MEQ/L 10 MEQ/L Estimat Glomerular Filtration Rate 76 ML/MIN 75 ML/MIN Imaging Last Impressions Chest X-Ray 06/15/17 0600 Signed Impressions: Service Date/Time: Thursday, June 15, 2017 03:30 - CONCLUSION: No significant interval change with persistent patchy bilateral lower lung zone predominant opacity. Rosas Rowell MD Abdomen/Pelvis CT 06/14/17 0000 Signed Impressions: Service Date/Time: Wednesday, June 14, 2017 22:32 - CONCLUSION: 1. Increasing basilar lung consolidation since chest CT from June 04. 2. Mild ileus. No bowel obstruction, free air or free fluid. 3. Left hip replacement. Advanced osteoarthritis right hip. NG in stomach. Rectal tube present. Humphrey Weston MD Abdomen X-Ray 06/11/17 0000 Signed Impressions: Service Date/Time: Sunday, June 11, 2017 19:52 - CONCLUSION: 1. Mild gaseous distention of colon. NG tip in stomach. Rectal temperature probe present. Humphrey Weston MD Head CT 06/04/17 0000 Signed Impressions: Service Date/Time: Sunday, June 04, 2017 18:46 - CONCLUSION: 1. No significant change compared to 06/03/17. 2. No acute infarct, acute hemorrhage , mass effect or extra-axial fluid collection. 3. Scattered old lacunar infarcts within the bilateral basal ganglia. 4. Mild periventricular and subcortical white matter small vessel ischemic changes bilaterally. 5. Old right posterior parietal infarct. 6. Chronic opacification of right mastoid air cells. Mckay Stone MD Chest CT 06/04/17 0000 Signed Impressions: Service Date/Time: Sunday, June 04, 2017 18:49 - CONCLUSION: 1. Right mid lung field and posterior bibasilar patchiness consistent with probable areas of pneumonia and/or atelectasis. Clinical correlation is recommended. 2. Tiny bilateral pleural effusions. 3. Cardiomegaly and coronary artery calcifications. 4. Minimal scattered emphysematous changes bilaterally. Mckay Stone MD Physical Exam CONSTITUTIONAL/GENERAL: This is an adequately nourished patient, in no apparent distress. TUBES/LINES/DRAINS: SKIN: No jaundice, rashes, or lesions. Skin temperature appropriate. Not diaphoretic. EYES: Pupils equal and round and reactive. Extraocular motions intact. No scleral icterus. No injection or drainage. Fundi not examined. CARDIOVASCULAR: Regular rate and rhythm without murmurs, gallops, or rubs. No JVD. Peripheral pulses symmetric. RESPIRATORY/CHEST: Symmetric, unlabored respirations. Clear to auscultation. Breath sounds equal bilaterally. No wheezes, rales, or rhonchi. GASTROINTESTINAL: Abdomen soft, appears tender, grimacing on palpation, still somewhat distended. No hepato-splenomegaly, or palpable masses. No guarding. Bowel sounds present, hyperactive . rectral tunb in place with large amopunt of liquid stool GENITOURINARY: Without palpable bladder distension. condom catheter in place with clear yellow MUSCULOSKELETAL: Extremities without clubbing, cyanosis, or edema. No joint tenderness or effusion noted. No calf tenderness. No mottling or clubbing. NEUROLOGICAL: moves all 4 extremeties, awake, alert, not communicating PSYCHIATRIC: unable to assess Assessment & Plan Remarks Assessment and Plan Mental status change, PNA, E.coli Acute VDRF Multiple med problems worsning leukocytosis source: worsening PNA also consicder intar abd UA nos cw infx Abdominal distention, diarrhea C.diff negative Persistent leukocytosis C glabrata funguria - no central lines,? source 2 D echo neg dc zosyn cont mycafungin, anticipate 14 days at least from [address] st neg clx Ml Wiseman MD Jun 17, 2017 20:37
[2017-06-18] VITALS (18 sets, daily range): BP systolic 141–158; BP diastolic 67–84; PULSE 44–79; RESP 18–30; TEMP 98.4–100; O2SAT 95–100
[2017-06-18 02:04] LABS: HEMATOCRIT 32.4 % (39.0-51.0); HEMOGLOBIN 10.8 GM/DL (13.0-17.0); MEAN CORPUSCULAR HEMOGLOBIN 29.6 PG (27.0-34.0); MEAN CORPUSCULAR HGB CONC 33.3 % (32.0-36.0); PLATELET COUNT 209 TH/MM3 (150-450); RED BLOOD COUNT 3.64 MIL/MM3 (4.50-5.90); RED CELL DISTRIBUTION WIDTH 14.2 % (11.6-17.2); WHITE BLOOD COUNT 10.5 TH/MM3 (4.0-11.0)
[2017-06-18 02:51] LABS: BICARBONATE 23.5 MEQ/L (21.0-32.0); CALCIUM 8.3 MG/DL (8.5-10.1); CREATININE 0.82 MG/DL (0.60-1.30)
[2017-06-18] MEDS: oxyCODONE HCL ORAL CONC 5 MG/0.25 ML SYRINGE PO SCH ×5 (03:32→22:51)
[2017-06-18] MEDS: INSULIN NovoLIN REGULAR SUPPLEMENTAL SCALE SQ SCH ×6 (03:42→20:00)
[2017-06-18] MEDS: RESP: ALBUTEROL 2.5 MG/IPRATROPIUM 0.5 MG NEB (SCH) NEB ×4 (03:52→20:29)
[2017-06-18] MEDS: CHLORHEXIDINE GLUCONATE 2 % 1 PACK (2 CLOTHS) TOP SCH (04:00)
[2017-06-18] MEDS: FREE WATER G-TUBE SCH ×3 (06:00→22:00)
[2017-06-18] MEDS: cloNIDine HCL 0.2 MG TAB PO SCH (06:05)
--- NOTE | 2017-06-18 07:57 | HHI.PR ---
Subjective Remarks ON THE VENTILATOR SEDATED TRACH OK PEG PLACED TODAY DIARRHEA Objective Vital Signs Date Time Temp Pulse Resp B/P (MAP) Pulse Ox O2 Delivery O2 Flow Rate FiO2 06/18/17 06:04 16 06/18/17 06:00 48 06/18/17 04:00 57 06/18/17 04:00 45 06/18/17 04:00 98.8 57 18 143/67 (92) 97 06/18/17 02:00 76 06/18/17 01:15 98 45 06/18/17 00:00 45 06/18/17 00:00 98.4 79 28 151/84 (106) 97 06/18/17 00:00 79 06/17/17 22:00 64 06/17/17 20:55 98 45 06/17/17 20:00 67 06/17/17 20:00 98.9 67 16 152/75 (100) 96 06/17/17 20:00 45 06/17/17 18:00 96 06/17/17 16:53 96 45 06/17/17 16:00 45 06/17/17 16:00 78 06/17/17 16:00 98.8 51 0 126/58 (80) 94 06/17/17 14:00 51 06/17/17 12:00 45 06/17/17 12:00 71 06/17/17 12:00 98.2 71 28 114/56 (75) 90 06/17/17 11:56 92 45 06/17/17 10:00 80 06/17/17 08:45 96 45 06/17/17 08:00 50 06/17/17 08:00 45 06/17/17 08:00 97.6 50 34 130/62 (84) 96 I/O 06/17/17 06/17/17 06/17/17 06/18/17 06/18/17 06/18/17 07:00 15:00 23:00 07:00 15:00 23:00 Intake Total 557 ml 720 ml Output Total 1500 ml 1300 ml 100 ml Balance -943 ml -580 ml -100 ml IV Total 557 ml 500 ml Other 220 ml Output Urine Total 900 ml 800 ml Stool Total 100 ml 100 ml 100 ml Gastric Drainage Total 500 ml 400 ml # Voids 1 Result Diagram: 06/18/1713506/18/17135 Objective Remarks GENERAL: SKIN: Warm and dry. HEAD: Atraumatic. Normocephalic. EYES: Pupils equal and round. No scleral icterus. No injection or drainage. ENT: No nasal bleeding or discharge. Mucous membranes pink and moist. NECK: Trachea midline. No JVD. CARDIOVASCULAR: Regular rate and rhythm. RESPIRATORY: No accessory muscle use. SCATTERED RHONCHI. GASTROINTESTINAL: Abdomen soft, non-tender, nondistended. Hepatic and splenic margins not palpable. MUSCULOSKELETAL: Extremities without clubbing, cyanosis, or edema. No obvious deformities. NEUROLOGICAL: Awake and alert. No obvious cranial nerve deficits. Motor grossly within normal limits. Five out of 5 muscle strength in the arms and legs. Normal speech. PSYCHIATRIC: Appropriate mood and affect; insight and judgment normal. Assessment and Plan Assessment and Plan RESPIRATORY FAILURE COPD PNA CXRAY 06/15 STABLE PLAN VENT SUPPORT WEAN TOLERATED BRONCHODILATORS PULM. TOILET Marcos Rodríguez MD Jun 18, 2017 07:57
[2017-06-18] MEDS: predniSONE 5 MG/5 ML CUP PO SCH (08:46)
[2017-06-18] MEDS: FAMOTIDINE 20 MG TAB PO SCH ×2 (08:47→22:51)
[2017-06-18] MEDS: VENLAFAXINE HCL XR 75 MG CAP PO SCH (08:47)
[2017-06-18] MEDS: amLODIPine BESYLATE 5 MG TAB PO SCH (08:47)
[2017-06-18] MEDS: SODIUM CHLORIDE 0.9% FLUSH 10 ML FLUSH IV FLUSH SCH ×2 (08:59→22:56)
[2017-06-18] MEDS: CHLORHEXIDINE 0.12% (ORAL KIT) 15 ML CUP MT SCH ×2 (08:59→23:03)
[2017-06-18] MEDS: NUTRISOURCE FIBER POWDER 1 PACK G-TUBE SCH ×2 (09:00→21:00)
[2017-06-18] MEDS: ZIPRASIDONE MESYLATE 20 MG VIAL IM PRN (09:23)
[2017-06-18] MEDS: DEXMEDETOMIDINE INJ 1,000 MCG in SODIUM CHLOR 0.9% 250 ML INJ 240 ML IV PRN (11:47)
[2017-06-18] MEDS: RESP: ALBUTEROL 2.5 MG/IPRATROPIUM 0.5 MG NEB (PRN) NEB (12:13)
--- NOTE | 2017-06-18 12:37 | ECHRPT ---
Indication: vegetation CONCLUSIONS Technically difficult study. Limited views, grossly normal left ventricular function. Grossly normal mitral valve. The aortic valve is not well visualized. Grossly normal tricuspid valve. No vegetations noted on mitral or tricuspid valves, but overall limited and technically difficult st udy BP: 143 / 67 HR: 57 Rhythm: Sinus Technical Quality:Technically difficult study FINDINGS LEFT VENTRICLE Limited views, grossly normal left ventricular function RIGHT VENTRICLE The right ventricle was not well visualized. LEFT ATRIUM The left atrium was not well visualized. RIGHT ATRIUM The right atrium is not well visualized. ATRIAL SEPTUM The interatrial septum not well visualized. AORTA The aortic root and proximal ascending aorta are not well visualized. MITRAL VALVE Grossly normal mitral valve. AORTIC VALVE The aortic valve is not well visualized. TRICUSPID VALVE Grossly normal tricuspid valve. PULMONARY VALVE The pulmonary valve is not well visualized. Arian Cleary DO (Electronically Signed) Final Date:18 June 2017 12:36
--- NOTE | 2017-06-18 13:24 | HHI.GIFU ---
Subjective Remarks Pt in bed, soft restraints. TF running 10ml/hr. Per RN PEG tube has been functioning well with meds, TF just started. (Bailey Rivera) Objective Vitals I&O Vital Signs Date Time Temp Pulse Resp B/P (MAP) Pulse Ox O2 Delivery O2 Flow Rate FiO2 06/18/17 12:16 45 06/18/17 12:14 99 45 06/18/17 12:00 99.2 53 28 158/70 (99) 95 06/18/17 12:00 45 06/18/17 12:00 53 06/18/17 11:48 17 06/18/17 10:00 60 06/18/17 08:33 100 45 06/18/17 08:00 67 06/18/17 08:00 45 06/18/17 08:00 98.8 67 30 149/78 (101) 98 06/18/17 06:00 48 06/18/17 04:00 57 06/18/17 04:00 45 06/18/17 04:00 98.8 57 18 143/67 (92) 97 06/18/17 02:00 76 06/18/17 01:15 98 45 06/18/17 00:00 45 06/18/17 00:00 98.4 79 28 151/84 (106) 97 06/18/17 00:00 79 06/17/17 22:00 64 06/17/17 20:55 98 45 06/17/17 20:00 67 06/17/17 20:00 98.9 67 16 152/75 (100) 96 06/17/17 20:00 45 06/17/17 18:00 96 06/17/17 16:53 96 45 06/17/17 16:00 45 06/17/17 16:00 78 06/17/17 16:00 98.8 51 0 126/58 (80) 94 06/17/17 14:00 51 I/O 06/17/17 06/17/17 06/17/17 06/18/17 06/18/17 06/18/17 07:00 15:00 23:00 07:00 15:00 23:00 Intake Total 557 ml 720 ml 250 ml Output Total 1500 ml 1300 ml 100 ml Balance -943 ml -580 ml -100 ml 250 ml IV Total 557 ml 500 ml 250 ml Other 220 ml Output Urine Total 900 ml 800 ml Stool Total 100 ml 100 ml 100 ml Gastric Drainage Total 500 ml 400 ml # Voids 1 Laboratory Laboratory Tests Test 06/18/17 01:36 White Blood Count 10.5 Red Blood Count 3.64 Hemoglobin 10.8 Hematocrit 32.4 Mean Corpuscular Volume 89.0 Mean Corpuscular Hemoglobin 29.6 Mean Corpuscular Hemoglobin Concent 33.3 Red Cell Distribution Width 14.2 Platelet Count 209 Mean Platelet Volume 8.0 Blood Urea Nitrogen 32 Creatinine 0.82 Random Glucose 140 Calcium Level 8.3 Sodium Level 144 Potassium Level 3.8 Chloride Level 114 Carbon Dioxide Level 23.5 Anion Gap 7 Estimat Glomerular Filtration Rate 96 Date/Time Source Procedure Growth Status 06/14/17 12:35 Blood Peripheral Aerobic Blood Culture - Preliminary NO GROWTH IN 4 DAYS Resulted 06/14/17 12:35 Blood Peripheral Anaerobic Blood Culture - Preliminary NO GROWTH IN 4 DAYS Resulted 06/10/17 13:20 Sputum Endotracheal Gram Stain - Final Complete 06/10/17 13:20 Sputum Endotracheal Sputum Culture - Final HEAVY GROWTH NORMAL RESPIRATORY RUBI Complete 06/10/17 12:45 Urine Catheterized Urine Urine Culture - Final NO GROWTH IN 48 HOURS. Complete Imaging Last Impressions Chest X-Ray 06/15/17 0600 Signed Impressions: Service Date/Time: Thursday, June 15, 2017 03:30 - CONCLUSION: No significant interval change with persistent patchy bilateral lower lung zone predominant opacity. Rosas Rowell MD Abdomen/Pelvis CT 06/14/17 0000 Signed Impressions: Service Date/Time: Wednesday, June 14, 2017 22:32 - CONCLUSION: 1. Increasing basilar lung consolidation since chest CT from June 04. 2. Mild ileus. No bowel obstruction, free air or free fluid. 3. Left hip replacement. Advanced osteoarthritis right hip. NG in stomach. Rectal tube present. Humphrey Weston MD Abdomen X-Ray 06/11/17 0000 Signed Impressions: Service Date/Time: Sunday, June 11, 2017 19:52 - CONCLUSION: 1. Mild gaseous distention of colon. NG tip in stomach. Rectal temperature probe present. Humphrey Weston MD Head CT 06/04/17 0000 Signed Impressions: Service Date/Time: Sunday, June 04, 2017 18:46 - CONCLUSION: 1. No significant change compared to 06/03/17. 2. No acute infarct, acute hemorrhage , mass effect or extra-axial fluid collection. 3. Scattered old lacunar infarcts within the bilateral basal ganglia. 4. Mild periventricular and subcortical white matter small vessel ischemic changes bilaterally. 5. Old right posterior parietal infarct. 6. Chronic opacification of right mastoid air cells. Mckay Stone MD Chest CT 06/04/17 0000 Signed Impressions: Service Date/Time: Sunday, June 04, 2017 18:49 - CONCLUSION: 1. Right mid lung field and posterior bibasilar patchiness consistent with probable areas of pneumonia and/or atelectasis. Clinical correlation is recommended. 2. Tiny bilateral pleural effusions. 3. Cardiomegaly and coronary artery calcifications. 4. Minimal scattered emphysematous changes bilaterally. Mckay Stone MD Physical Exam HEENT: normocephalic; atraumatic; no jaundice. trach to vent CHEST: coarse CARDIAC: irr HR ABDOMEN: Soft, nondistended, nontender; no hepatosplenomegaly; bowel sounds are present in all four quadrants. PEG tube site clean and dry EXTREMITIES: No clubbing, cyanosis, or edema. SKIN: Normal; no rash; no jaundice. ELECTRIC SPOT WELDER: nonverbal, does not follow commands, eyes open (Bailey Rivera) Assessment and Plan Plan ASSESSMENT: - Chronic respiratory failure requiring PEG placement - s/p PEG tube placement. TF just started. PEG working for meds. PLAN: - increase TF as tolerated - Supportive care - GI will sign off. Please reconsult if needed Patient seen and examined by Dr. Root and myself and this note is written on his behalf. (Bailey Rivera) Physician Comments Agree with the plan as above, please notify us if needed. (Linette Root MD) Bailey Rivera Jun 18, 2017 13:24 Linette Root MD Jun 18, 2017 14:17
[2017-06-18] MEDS: PROPRANOLOL HCL 10 MG TAB PO SCH ×2 (13:41→22:52)
[2017-06-18] MEDS: cloNIDine HCL 0.3 MG TAB PO SCH ×2 (13:41→22:00)
[2017-06-18] MEDS: MICAFUNGIN INJ 150 MG in SODIUM CHLORIDE 0.9% INJ 100 ML IV SCH (14:31)
--- NOTE | 2017-06-18 15:43 | HHI.CCPN ---
Subjective Remarks/Hospital Course 06/04: Mr. Reilly is a 61-year-old male with a history of COPD, hypertension, hyperlipidemia, CVA, schizoaffective disorder, bipolar disorder, GERD, renal failure, and arthritis who presented to the emergency room on 06/03/2017 from a [facility] for evaluation of altered mental status. Upon review of the medical records from the [facility] facility, it is noted he had a right lower lobe pneumonia diagnosed mid May. Head CT showed no acute infarct, acute hemorrhage, mass effect, or extra-axial fluid collection but scattered old lacunar infarcts within the bilateral basal ganglia. Mild periventricular and subcortical white matter small vessel ischemic changes bilaterally. Chest x-ray shows scattered bibasilar patchiness consistent with possible pneumonia. Per documentation : While in the ER, patient was in moderate respiratory distress with tachypnea and utilization of accessory abdominal muscles to breathe. His lung sounds are bilaterally congested and he is confused and a poor historian. His speech is slightly slurred but this is not a new finding. He was noted to be on 5 L nasal cannula with oxygen saturation of 94% in the emergency room. Patient was admitted to the ICU by the hospitalist service. He was initiated on heparin drip for suspicion of PE. He was also noted to have an elevated CPK and creatinine. His blood pressures were running high overnight. This afternoon patient developed worsening agitation and disorientation and confusion. His heparin was stopped earlier by Dr. Garcia due to low suspicion for PE. Patient developed worsening respiration status with respirations in the 30s and O2 sats in the mid 80s. Critical care medicine was consulted. Patient was emergently intubated by Dr. Elvira Gutierrez and I subsequently took over patient care. When I evaluated the patient he had been sedated for the intubation and is being placed on mechanical ventilation. History was obtained by discussion with Dr. Garcia, Dr. Gutierrez and ICU nursing staff as well as documentation in the chart. 06/05: Remains sedated, orally intubated on mechanical ventilation. 06/06: Sedated, orally intubated on mechanical ventilation. Failed C Pap trial today. Got extremely anxious on lightening sedation. 06/07 No events overnight. Sedated and intubated. Afebrile. 06/08 No events overnight. Sedated with Diprivan, Fentanyl and intubated. 06/09 Patient remains sedated and intubated. Afebrile.Did not tolerate CPAP trials yesterday. 06/10 Patient is sedated with Fentanyl and Diprivan. Afebrile. Did not tolerate CPAP yesterday as he became restless, agitated and tachycardic. 06/11 Patient remains sedated and intubated. Spiked fever with Tmax 101.1 06/12 No events overnight. Sedated and intubated. Afebrile. 06/13 Patient remains intubated and sedated with Diprivan, fentanyl in addition he is on Precedex drip. T:100.0 06/14 Patient remains sedated and intubated. Afebrile. Did not tolerate CPAP trials yesterday as he became tahypenic, tachycardic and restless. 06/15: agitation persists. respiratory failure persists. severely volume overloaded. has been intubated for almost 2 weeks. may require trach. CT abd/ pelvis without overt acute disease. no other source for fungemia. 06/16: s/p trach yesterday. no significant changes. 06/17: plan for PEG today. agitation persists with significant delirium. no other significant changes. 06/18: s/p PEG placement. weaning off sedation. still failing cpap trials. Objective Vital Signs Date Time Temp Pulse Resp B/P (MAP) Pulse Ox O2 Delivery O2 Flow Rate FiO2 06/18/17 15:01 97 45 06/18/17 12:00 99.2 53 28 158/70 (99) Intake and Output 06/18/17 06/18/17 06/19/17 08:00 16:00 00:00 Intake Total 250 ml Output Total 100 ml Balance -100 ml 250 ml Result Diagram: 06/18/17 0136 06/18/17 0136 Imaging Last Impressions Chest X-Ray 06/12/17 0000 Signed Impressions: Service Date/Time: Monday, June 12, 2017 03:12 - CONCLUSION: Stable central and lower lung air space infiltrates. Yuri Streeter MD Abdomen X-Ray 06/11/17 0000 Signed Impressions: Service Date/Time: Sunday, June 11, 2017 19:52 - CONCLUSION: 1. Mild gaseous distention of colon. NG tip in stomach. Rectal temperature probe present. Humphrey Weston MD Head CT 06/04/17 0000 Signed Impressions: Service Date/Time: Sunday, June 04, 2017 18:46 - CONCLUSION: 1. No significant change compared to 06/03/17. 2. No acute infarct, acute hemorrhage , mass effect or extra-axial fluid collection. 3. Scattered old lacunar infarcts within the bilateral basal ganglia. 4. Mild periventricular and subcortical white matter small vessel ischemic changes bilaterally. 5. Old right posterior parietal infarct. 6. Chronic opacification of right mastoid air cells. Mckay Stone MD Chest CT 06/04/17 0000 Signed Impressions: Service Date/Time: Sunday, June 04, 2017 18:49 - CONCLUSION: 1. Right mid lung field and posterior bibasilar patchiness consistent with probable areas of pneumonia and/or atelectasis. Clinical correlation is recommended. 2. Tiny bilateral pleural effusions. 3. Cardiomegaly and coronary artery calcifications. 4. Minimal scattered emphysematous changes bilaterally. Mckay Stone MD Objective Remarks GENERAL: middle-aged male appears older than stated age, lying in bed, agitated , intubated. SKIN: Warm and dry. HEAD: Normocephalic. EYES: No scleral icterus. No injection or drainage. NECK: trachea midline. No JVD CARDIOVASCULAR: normal rate, regular rhythm. sinus by tele. RESPIRATORY: intubated. 45% fio2. full mechanical support. GASTROINTESTINAL: Abdomen soft, non-tender, nondistended. MUSCULOSKELETAL: No cyanosis. Neuro: sedated. RASS -2. moves all extremities spontaneously. does not follow commands. A/P Assessment and Plan Assessment: 61yM with history of schizoaffective d/o and bipolar d/o who presented with acute hypoxic respiratory failure and now fungemia without overt source. Not improving on pathway. No meaningful improvements over last 2 weeks. s/p trach 06/15 and PEG 06/17. remains off pathway. needs long-term acute care level of rehabilitation. Plan: Neuro: Acute Metabolic Encephalopathy Agitated Delirium - persistent. Schizoaffective disorder/bipolar disorder History of alcohol abuse History of CVA geodon 10mg IM q12h prn for agitation continue aricept and cogentin wean precedex as tolerated. oxycodone 10mg po q4h increase clonidine to 0.3mg po q8h add propranolol 10mg po q8h. CV: Uncontrolled hypertension - improving. hyperlipidemia Monitor HR and BP keep MAP>65mmHg On Lopressor 50mg Q12 .on Lipitor. Norvasc 5mg daily 2-D echo with normal LV/RV function clonidine 0.3mg po q8h propranolol 10mg po q8h Pulmo: Acute respiratory failure requiring mechanical ventilation - persistent. COPD exacerbation Resolving community acquired pneumonia Intubated and placed on mechanical ventilation on 06/04. Vent bundle, bronchodilators, d/c solumedrol and start prednisone taper. continue daily SBTs. failing for tachypnea and agitation wean fio2 for spo2 > 90% trach 06/[address] Sapp/[facility]/liver: GERD Diarrhea Acute protein calorie malnutrition- severe Continue tube feeds-Glucerna 1.5@60ml/hr KUB abdomen: Mild gaseous distention Ct abd/pelvis 06/14: no acute disease C. Diff negative fiber to tube feeds rectal tube in place since 06/13: will attempt to discontinue. Renal/: ROSENDO/ CKD - resolved. Rhabdomyolysis - resolved. Acute intravascular volume overload- resolved. Metabolic alkalosis- resolving. daily BMP hold further diuresis ID: Fungemia Community Acquired Pneumonia continue zosyn. continue micafungin ID involved Sputum cx: E.coli on 06/04 Endocrine: Hyperglycemia of critical illness SSI to high scale, q4h Heme: Anemia secondary to chronic disease Monitor CBC. does not meet transfusion triggers at this time. Prophylaxis: Pepcid/SCDs. SQ Lovenox Lines: PIV Dispo: remain in ICU. remains off pathway. Beltran Sapp MD Jun 18, 2017 15:43
--- NOTE | 2017-06-18 18:11 | HHI.PR ---
Addendum to Inpatient Note Additional Information pt was seen around 1530 full note to follow Ml Wiseman MD Jun 18, 2017 18:11
[2017-06-18] MEDS: BENZTROPINE MESYLATE 1 MG TAB PO SCH (22:51)
[2017-06-18] MEDS: DONEPEZIL HCL 5 MG TAB PO SCH (22:51)
[2017-06-18] MEDS: risperiDONE 1 MG TAB PO SCH (22:51)
[2017-06-18] MEDS: ATORVASTATIN 40 MG TAB PO SCH (22:51)
[2017-06-18] MEDS: TAMSULOSIN HCL 0.4 MG CAP PO SCH (22:52)
--- NOTE | 2017-06-18 22:52 | HHI.IDPN ---
Subjective Subjective Remarks cont to have low grade fever C glabrate in 07/[address] abd/pel w/o acute pathology pt sp PEG/trach failing CPAPs Antibiotics mycafungin Allergies: Coded Allergies: hydrochlorothiazide (Unverified Allergy, Intermediate, EFFECTS HIS SODIUM LEVEL, 02/12/17) PT STATES HE IS NOT ALLERGIC codeine (Unverified Adverse Reaction, Severe, 02/12/17) PT STATES HE IS NOT ALLERGIC Objective . Vital Signs Date Time Temp Pulse Resp B/P (MAP) Pulse Ox O2 Delivery O2 Flow Rate FiO2 06/18/17 20:29 98 45 06/18/17 18:18 18 06/18/17 18:00 52 06/18/17 16:07 97 45 06/18/17 16:00 45 06/18/17 16:00 46 06/18/17 16:00 100.0 46 19 154/73 (100) 97 06/18/17 15:01 97 45 06/18/17 14:00 54 06/18/17 12:16 45 06/18/17 12:14 99 45 06/18/17 12:00 99.2 53 28 158/70 (99) 95 06/18/17 12:00 45 06/18/17 12:00 53 06/18/17 10:00 60 06/18/17 08:33 100 45 06/18/17 08:00 67 06/18/17 08:00 45 06/18/17 08:00 98.8 67 30 149/78 (101) 98 06/18/17 06:00 48 06/18/17 04:00 57 06/18/17 04:00 45 06/18/17 04:00 98.8 57 18 143/67 (92) 97 06/18/17 02:00 76 06/18/17 01:15 98 45 06/18/17 00:00 45 06/18/17 00:00 98.4 79 28 151/84 (106) 97 06/18/17 00:00 79 06/18/17 06/18/17 06/19/17 14:59 22:59 06:59 Intake Total 250 ml 774 ml Output Total 200 ml Balance 250 ml 574 ml IV Total 250 ml 218 ml Tube Feeding 56 ml Other 500 ml Stool Total 200 ml # Voids 4 . Laboratory Tests Test 06/17/17 06:00 06/18/17 01:36 White Blood Count 12.6 TH/MM3 10.5 TH/MM3 Red Blood Count 3.71 MIL/MM3 3.64 MIL/MM3 Hemoglobin 10.9 GM/DL 10.8 GM/DL Hematocrit 33.6 % 32.4 % Mean Corpuscular Volume 90.6 FL 89.0 FL Mean Corpuscular Hemoglobin 29.4 PG 29.6 PG Mean Corpuscular Hemoglobin Concent 32.4 % 33.3 % Red Cell Distribution Width 14.6 % 14.2 % Platelet Count 197 TH/MM3 209 TH/MM3 Mean Platelet Volume 8.6 FL 8.0 FL Laboratory Tests Test 06/17/17 06:00 06/18/17 01:36 Blood Urea Nitrogen 46 MG/DL 32 MG/DL Creatinine 1.01 MG/DL 0.82 MG/DL Random Glucose 169 MG/DL 140 MG/DL Calcium Level 8.1 MG/DL 8.3 MG/DL Sodium Level 142 MEQ/L 144 MEQ/L Potassium Level 3.1 MEQ/L 3.8 MEQ/L Chloride Level 109 MEQ/L 114 MEQ/L Carbon Dioxide Level 22.9 MEQ/L 23.5 MEQ/L Anion Gap 10 MEQ/L 7 MEQ/L Estimat Glomerular Filtration Rate 75 ML/MIN 96 ML/MIN Imaging Last Impressions Chest X-Ray 06/15/17 0600 Signed Impressions: Service Date/Time: Thursday, June 15, 2017 03:30 - CONCLUSION: No significant interval change with persistent patchy bilateral lower lung zone predominant opacity. Rosas Rowell MD Abdomen/Pelvis CT 06/14/17 0000 Signed Impressions: Service Date/Time: Wednesday, June 14, 2017 22:32 - CONCLUSION: 1. Increasing basilar lung consolidation since chest CT from June 04. 2. Mild ileus. No bowel obstruction, free air or free fluid. 3. Left hip replacement. Advanced osteoarthritis right hip. NG in stomach. Rectal tube present. Humphrey Weston MD Abdomen X-Ray 06/11/17 0000 Signed Impressions: Service Date/Time: Sunday, June 11, 2017 19:52 - CONCLUSION: 1. Mild gaseous distention of colon. NG tip in stomach. Rectal temperature probe present. Humphrey Weston MD Head CT 06/04/17 0000 Signed Impressions: Service Date/Time: Sunday, June 04, 2017 18:46 - CONCLUSION: 1. No significant change compared to 06/03/17. 2. No acute infarct, acute hemorrhage , mass effect or extra-axial fluid collection. 3. Scattered old lacunar infarcts within the bilateral basal ganglia. 4. Mild periventricular and subcortical white matter small vessel ischemic changes bilaterally. 5. Old right posterior parietal infarct. 6. Chronic opacification of right mastoid air cells. Mckay Stone MD Chest CT 06/04/17 0000 Signed Impressions: Service Date/Time: Sunday, June 04, 2017 18:49 - CONCLUSION: 1. Right mid lung field and posterior bibasilar patchiness consistent with probable areas of pneumonia and/or atelectasis. Clinical correlation is recommended. 2. Tiny bilateral pleural effusions. 3. Cardiomegaly and coronary artery calcifications. 4. Minimal scattered emphysematous changes bilaterally. Mckay Stone MD Physical Exam CONSTITUTIONAL/GENERAL: This is an adequately nourished patient, in no apparent distress. TUBES/LINES/DRAINS: SKIN: No jaundice, rashes, or lesions. Skin temperature appropriate. Not diaphoretic. EYES: Pupils equal and round and reactive. Extraocular motions intact. No scleral icterus. No injection or drainage. Fundi not examined. CARDIOVASCULAR: Regular rate and rhythm without murmurs, gallops, or rubs. No JVD. Peripheral pulses symmetric. RESPIRATORY/CHEST: Symmetric, unlabored respirations. Clear to auscultation. Breath sounds equal bilaterally. No wheezes, rales, or rhonchi. GASTROINTESTINAL: Abdomen soft, appears tender, grimacing on palpation, still somewhat distended. No hepato-splenomegaly, or palpable masses. No guarding. Bowel sounds present, hyperactive . rectral tube in place with large amopunt of liquid stool GENITOURINARY: Without palpable bladder distension. condom catheter in place with clear yellow MUSCULOSKELETAL: Extremities without clubbing, cyanosis, or edema. No joint tenderness or effusion noted. No calf tenderness. No mottling or clubbing. NEUROLOGICAL: moves all 4 extremeties, awake, alert, not communicating PSYCHIATRIC: unable to assess Assessment & Plan Remarks Assessment and Plan Mental status change, PNA, E.coli Acute VDRF, failure to wean Multiple med problems worsning leukocytosis source: worsening PNA also consicder intar abd UA nos cw infx Abdominal distention, diarrhea C.diff negative Persistent leukocytosis C glabrata funguria - no central lines,? source 2 D echo neg Persistent leukocytosis cont mycafungin, anticipate 14 days at least from [address] st neg clx will repeat blood clx fu CXR fu sputum clx Ml Wiseman MD Jun 18, 2017 22:52
[2017-06-19] VITALS (23 sets, daily range): BP systolic 126–161; BP diastolic 60–70; PULSE 47–66; RESP 16–24; TEMP 98–100.1; O2SAT 95–100
[2017-06-19] MEDS: CHLORHEXIDINE GLUCONATE 2 % 1 PACK (2 CLOTHS) TOP SCH (01:14)
[2017-06-19] MEDS: RESP: ALBUTEROL 2.5 MG/IPRATROPIUM 0.5 MG NEB (SCH) NEB ×5 (01:17→20:13)
[2017-06-19] MEDS: oxyCODONE HCL ORAL CONC 5 MG/0.25 ML SYRINGE PO SCH ×7 (01:55→23:48)
[2017-06-19 02:07] LABS: HEMATOCRIT 35.4 % (39.0-51.0); HEMOGLOBIN 11.4 GM/DL (13.0-17.0); MEAN CELL VOLUME 89.8 FL (80.0-100.0); MEAN CORPUSCULAR HEMOGLOBIN 28.9 PG (27.0-34.0); MEAN CORPUSCULAR HGB CONC 32.2 % (32.0-36.0); MEAN PLATELET VOLUME 7.9 FL (7.0-11.0); PLATELET COUNT 225 TH/MM3 (150-450); RED BLOOD COUNT 3.94 MIL/MM3 (4.50-5.90); RED CELL DISTRIBUTION WIDTH 14.1 % (11.6-17.2); WHITE BLOOD COUNT 12.1 TH/MM3 (4.0-11.0)
[2017-06-19 02:18] LABS: BICARBONATE 23.8 MEQ/L (21.0-32.0); CALCIUM 8.4 MG/DL (8.5-10.1); CREATININE 0.64 MG/DL (0.60-1.30)
[2017-06-19] MEDS: INSULIN NovoLIN REGULAR SUPPLEMENTAL SCALE SQ SCH ×7 (03:14→23:48)
--- NOTE | 2017-06-19 04:47 | RADRPT ---
EXAM DATE/TIME: 06/19/2017 03:15 [facility] COMPARISON: CHEST SINGLE AP, June 15, 2017, 19:09. INDICATIONS : Short of breath. MEDICAL HISTORY : Hepatitis C. Chronic obstructive pulmonary disease. Hypertension. Stroke. SURGICAL HISTORY : None. ENCOUNTER: Subsequent ACUITY: 1 week PAIN SCORE: 0/10 LOCATION: Bilateral chest FINDINGS: There is tracheostomy tube in place. The heart size is normal. There is increased density at the base s bilaterally being worse on the left. CONCLUSION: Bibasilar areas of consolidation or atelectasis being worse on the left. Arvind Iyer MD on June 19, 2017 at 4:45 Board Certified Radiologist. This report was verified electronically.
[2017-06-19] MEDS: PROPRANOLOL HCL 10 MG TAB PO SCH ×3 (05:54→20:31)
[2017-06-19] MEDS: FREE WATER G-TUBE SCH ×3 (05:54→20:33)
[2017-06-19] MEDS: cloNIDine HCL 0.3 MG TAB PO SCH ×3 (05:54→20:31)
[2017-06-19] MEDS: CHLORHEXIDINE 0.12% (ORAL KIT) 15 ML CUP MT SCH ×2 (08:00→20:30)
[2017-06-19] MEDS: SODIUM CHLORIDE 0.9% FLUSH 10 ML FLUSH IV FLUSH SCH ×2 (09:00→20:33)
[2017-06-19] MEDS: NUTRISOURCE FIBER POWDER 1 PACK G-TUBE SCH ×2 (09:00→20:33)
[2017-06-19] MEDS: predniSONE 5 MG/5 ML CUP PO SCH (09:00)
[2017-06-19] MEDS: VENLAFAXINE HCL XR 75 MG CAP PO SCH (09:28)
[2017-06-19] MEDS: FAMOTIDINE 20 MG TAB PO SCH ×2 (09:28→20:31)
[2017-06-19] MEDS: amLODIPine BESYLATE 5 MG TAB PO SCH (09:28)
[2017-06-19] MEDS: ZIPRASIDONE MESYLATE 20 MG VIAL IM PRN (10:24)
[2017-06-19] MEDS: DEXMEDETOMIDINE INJ 1,000 MCG in SODIUM CHLOR 0.9% 250 ML INJ 240 ML IV PRN (11:17)
--- NOTE | 2017-06-19 12:36 | HHI.CCPN ---
Subjective Remarks/Hospital Course 06/04: Mr. Reilly is a 61-year-old male with a history of COPD, hypertension, hyperlipidemia, CVA, schizoaffective disorder, bipolar disorder, GERD, renal failure, and arthritis who presented to the emergency room on 06/03/2017 from a [facility] for evaluation of altered mental status. Upon review of the medical records from the [facility], it is noted he had a right lower lobe pneumonia diagnosed mid May. Head CT showed no acute infarct, acute hemorrhage, mass effect, or extra-axial fluid collection but scattered old lacunar infarcts within the bilateral basal ganglia. Mild periventricular and subcortical white matter small vessel ischemic changes bilaterally. Chest x-ray shows scattered bibasilar patchiness consistent with possible pneumonia. Per documentation : While in the ER, patient was in moderate respiratory distress with tachypnea and utilization of accessory abdominal muscles to breathe. His lung sounds are bilaterally congested and he is confused and a poor historian. His speech is slightly slurred but this is not a new finding. He was noted to be on 5 L nasal cannula with oxygen saturation of 94% in the emergency room. Patient was admitted to the ICU by the hospitalist service. He was initiated on heparin drip for suspicion of PE. He was also noted to have an elevated CPK and creatinine. His blood pressures were running high overnight. This afternoon patient developed worsening agitation and disorientation and confusion. His heparin was stopped earlier by Dr. Garcia due to low suspicion for PE. Patient developed worsening respiration status with respirations in the 30s and O2 sats in the mid 80s. Critical care medicine was consulted. Patient was emergently intubated by Dr. Elvira Gutierrez and I subsequently took over patient care. When I evaluated the patient he had been sedated for the intubation and is being placed on mechanical ventilation. History was obtained by discussion with Dr. Garcai, Dr. Gutierrez and ICU nursing staff as well as documentation in the chart. 06/05: Remains sedated, orally intubated on mechanical ventilation. 06/06: Sedated, orally intubated on mechanical ventilation. Failed C Pap trial today. Got extremely anxious on lightening sedation. 06/07 No events overnight. Sedated and intubated. Afebrile. 06/08 No events overnight. Sedated with Diprivan, Fentanyl and intubated. 06/09 Patient remains sedated and intubated. Afebrile.Did not tolerate CPAP trials yesterday. 06/10 Patient is sedated with Fentanyl and Diprivan. Afebrile. Did not tolerate CPAP yesterday as he became restless, agitated and tachycardic. 06/11 Patient remains sedated and intubated. Spiked fever with Tmax 101.1 06/12 No events overnight. Sedated and intubated. Afebrile. 06/13 Patient remains intubated and sedated with Diprivan, fentanyl in addition he is on Precedex drip. T:100.0 06/14 Patient remains sedated and intubated. Afebrile. Did not tolerate CPAP trials yesterday as he became tahypenic, tachycardic and restless. 06/15: agitation persists. respiratory failure persists. severely volume overloaded. has been intubated for almost 2 weeks. may require trach. CT abd/ pelvis without overt acute disease. no other source for fungemia. 06/16: s/p trach yesterday. no significant changes. 06/17: plan for PEG today. agitation persists with significant delirium. no other significant changes. 06/18: s/p PEG placement. weaning off sedation. still failing cpap trials. 06/19: cannot wean off precedex: agitated delirium persists. also still failing cpap trials. Objective Vital Signs Date Time Temp Pulse Resp B/P (MAP) Pulse Ox O2 Delivery O2 Flow Rate FiO2 06/19/17 12:00 50 06/19/17 12:00 98.3 16 131/60 (83) 95 06/19/17 12:00 45 Intake and Output 06/19/17 06/19/17 06/20/17 08:00 16:00 00:00 Intake Total 744 ml Output Total 200 ml Balance 544 ml Result Diagram: 06/19/17 0135 06/19/17 0135 Imaging Last Impressions Chest X-Ray 06/12/17 0000 Signed Impressions: Service Date/Time: Monday, June 12, 2017 03:12 - CONCLUSION: Stable central and lower lung air space infiltrates. Yuri Streeter MD Abdomen X-Ray 06/11/17 0000 Signed Impressions: Service Date/Time: Sunday, June 11, 2017 19:52 - CONCLUSION: 1. Mild gaseous distention of colon. NG tip in stomach. Rectal temperature probe present. Humphrey Weston MD Head CT 06/04/17 0000 Signed Impressions: Service Date/Time: Sunday, June 04, 2017 18:46 - CONCLUSION: 1. No significant change compared to 06/03/17. 2. No acute infarct, acute hemorrhage , mass effect or extra-axial fluid collection. 3. Scattered old lacunar infarcts within the bilateral basal ganglia. 4. Mild periventricular and subcortical white matter small vessel ischemic changes bilaterally. 5. Old right posterior parietal infarct. 6. Chronic opacification of right mastoid air cells. Mckay Stone MD Chest CT 06/04/17 0000 Signed Impressions: Service Date/Time: Sunday, June 04, 2017 18:49 - CONCLUSION: 1. Right mid lung field and posterior bibasilar patchiness consistent with probable areas of pneumonia and/or atelectasis. Clinical correlation is recommended. 2. Tiny bilateral pleural effusions. 3. Cardiomegaly and coronary artery calcifications. 4. Minimal scattered emphysematous changes bilaterally. Mckay Stone MD Objective Remarks GENERAL: middle-aged male appears older than stated age, lying in bed, agitated , intubated. SKIN: Warm and dry. HEAD: Normocephalic. EYES: No scleral icterus. No injection or drainage. NECK: trachea midline. No JVD CARDIOVASCULAR: normal rate, regular rhythm. sinus by tele. RESPIRATORY: intubated. full mechanical support. GASTROINTESTINAL: Abdomen soft, non-tender, nondistended. MUSCULOSKELETAL: No cyanosis. Neuro: sedated. RASS -2/+1. moves all extremities spontaneously. does not follow commands. A/P Assessment and Plan Assessment: 61yM with history of schizoaffective d/o and bipolar d/o who presented with acute hypoxic respiratory failure and now fungemia without overt source. Not improving on pathway. No meaningful improvements over last 2 weeks. s/p trach 06/15 and PEG 06/17. remains off pathway. needs long-term acute care level of rehabilitation. agitation still the biggest barrier to successful weaning. Plan: Neuro: Acute Metabolic Encephalopathy Agitated Delirium - persistent. Schizoaffective disorder/bipolar disorder History of alcohol abuse History of CVA geodon 10mg IM q12h prn for agitation continue aricept and cogentin wean precedex as tolerated. oxycodone 10mg po q4h clonidine to 0.3mg po q8h propranolol 10mg po q8h. add guanfacine 2mg po q12h CV: Uncontrolled hypertension - improving. hyperlipidemia Monitor HR and BP keep MAP>65mmHg On Lopressor 50mg Q12 .on Lipitor. Norvasc 5mg daily 2-D echo with normal LV/RV function clonidine 0.3mg po q8h propranolol 10mg po q8h Pulmo: Acute respiratory failure requiring mechanical ventilation - persistent. COPD exacerbation Resolving community acquired pneumonia Intubated and placed on mechanical ventilation on 06/04. Vent bundle, bronchodilators, d/c solumedrol and start prednisone taper. continue daily SBTs. failing for tachypnea and agitation wean fio2 for spo2 > 90% trach 06/[address] Sapp/[facility] GI/liver: GERD Diarrhea Acute protein calorie malnutrition- severe Continue tube feeds-Glucerna 1.5@60ml/hr KUB abdomen: Mild gaseous distention Ct abd/pelvis 06/14: no acute disease C. Diff negative fiber to tube feeds rectal tube in place since 06/13: will discontinue. will add imodium for breakthrough diarrhea. Renal/: ROSENDO/ CKD - resolved. Rhabdomyolysis - resolved. Acute intravascular volume overload- resolved. Metabolic alkalosis- resolving. daily BMP hold further diuresis ID: Fungemia Community Acquired Pneumonia- resolved. continue micafungin: plan for 14 days after 1st negative blood culture. ID involved Sputum cx: E.coli on 06/04 Endocrine: Hyperglycemia of critical illness SSI to high scale, q4h Heme: Anemia secondary to chronic disease Monitor CBC. does not meet transfusion triggers at this time. Prophylaxis: Pepcid/SCDs. SQ Lovenox Lines: PIV Dispo: remain in ICU. remains off pathway. Beltran Sapp MD Jun 19, 2017 12:36
[2017-06-19] MEDS: MICAFUNGIN INJ 150 MG in SODIUM CHLORIDE 0.9% INJ 100 ML IV SCH (13:50)
[2017-06-19] MEDS: guanFACINE HCL 1 MG TAB PO SCH ×2 (14:00→20:31)
[2017-06-19] MEDS ORDERED: LOPERAMIDE HCL SOLN 2 MG/10 ML UDC PO PRN (17:45)
--- NOTE | 2017-06-19 19:32 | HHI.PR ---
Subjective Remarks ON THE VENTILATOR SEDATED TRACH OK PEG PLACED TODAY Objective Vital Signs Date Time Temp Pulse Resp B/P (MAP) Pulse Ox O2 Delivery O2 Flow Rate FiO2 06/19/17 18:00 63 06/19/17 17:00 62 06/19/17 16:00 98.0 55 21 132/61 (84) 96 06/19/17 16:00 55 06/19/17 16:00 45 06/19/17 15:00 63 06/19/17 14:43 100 45 06/19/17 14:00 52 06/19/17 12:47 97 45 06/19/17 12:00 50 06/19/17 12:00 98.3 50 16 131/60 (83) 95 06/19/17 12:00 45 06/19/17 11:00 53 06/19/17 10:00 65 06/19/17 09:04 96 45 06/19/17 09:00 63 06/19/17 08:00 98.7 47 16 142/63 (89) 95 06/19/17 08:00 45 06/19/17 08:00 47 06/19/17 07:00 59 06/19/17 06:00 53 06/19/17 04:00 98.6 52 17 161/70 (100) 97 06/19/17 04:00 45 06/19/17 04:00 52 06/19/17 03:49 97 45 06/19/17 02:00 61 06/19/17 01:17 96 45 06/19/17 00:00 98.7 49 16 136/65 (88) 96 06/19/17 00:00 45 06/19/17 00:00 49 06/18/17 22:00 47 06/18/17 20:29 98 45 06/18/17 20:00 98.6 44 23 141/71 (94) 97 06/18/17 20:00 44 06/18/17 20:00 45 I/O 06/18/17 06/18/17 06/18/17 06/19/17 06/19/17 06/19/17 07:00 15:00 23:00 07:00 15:00 23:00 Intake Total 250 ml 774 ml 744 ml 350 ml 853 ml Output Total 100 ml 200 ml 200 ml 1100 ml Balance -100 ml 250 ml 574 ml 544 ml 350 ml -247 ml IV Total 250 ml 218 ml 350 ml Tube Feeding 56 ml 244 ml 453 ml Other 500 ml 500 ml 400 ml Output Urine Total 700 ml Stool Total 100 ml 200 ml 200 ml 400 ml # Voids 1 4 3 Result Diagram: 06/19/1713406/19/17134 Objective Remarks GENERAL: SKIN: Warm and dry. HEAD: Atraumatic. Normocephalic. EYES: Pupils equal and round. No scleral icterus. No injection or drainage. ENT: No nasal bleeding or discharge. Mucous membranes pink and moist. NECK: Trachea midline. No JVD. CARDIOVASCULAR: Regular rate and rhythm. RESPIRATORY: No accessory muscle use. SCATTERED RHONCHI. GASTROINTESTINAL: Abdomen soft, non-tender, nondistended. Hepatic and splenic margins not palpable. MUSCULOSKELETAL: Extremities without clubbing, cyanosis, or edema. No obvious deformities. NEUROLOGICAL: Awake and alert. No obvious cranial nerve deficits. Motor grossly within normal limits. Five out of 5 muscle strength in the arms and legs. Normal speech. PSYCHIATRIC: Appropriate mood and affect; insight and judgment normal. Assessment and Plan Assessment and Plan RESPIRATORY FAILURE COPD PNA CXRAY 06/15 STABLE PLAN VENT SUPPORT WEAN TOLERATED BRONCHODILATORS PULM. TOILET Marcos Rodríguez MD Jun 19, 2017 19:32
[2017-06-19] MEDS: DONEPEZIL HCL 5 MG TAB PO SCH (20:31)
[2017-06-19] MEDS: risperiDONE 1 MG TAB PO SCH (20:31)
[2017-06-19] MEDS: BENZTROPINE MESYLATE 1 MG TAB PO SCH (20:31)
[2017-06-19] MEDS: ATORVASTATIN 40 MG TAB PO SCH (20:32)
[2017-06-19] MEDS: TAMSULOSIN HCL 0.4 MG CAP PO SCH (20:33)
[2017-06-20] VITALS (17 sets, daily range): BP systolic 118–182; BP diastolic 56–85; PULSE 53–66; RESP 18–30; TEMP 98.7–99.7; O2SAT 96–100
[2017-06-20] MEDS: RESP: ALBUTEROL 2.5 MG/IPRATROPIUM 0.5 MG NEB (SCH) NEB ×7 (00:08→23:35)
[2017-06-20] MEDS: oxyCODONE HCL ORAL CONC 5 MG/0.25 ML SYRINGE PO SCH ×5 (03:22→18:51)
[2017-06-20] MEDS: CHLORHEXIDINE GLUCONATE 2 % 1 PACK (2 CLOTHS) TOP SCH (03:23)
[2017-06-20] MEDS: INSULIN NovoLIN REGULAR SUPPLEMENTAL SCALE SQ SCH ×5 (03:23→20:15)
[2017-06-20 05:06] LABS: HEMATOCRIT 34.6 % (39.0-51.0); HEMOGLOBIN 11.2 GM/DL (13.0-17.0); MEAN CELL VOLUME 89.9 FL (80.0-100.0); MEAN CORPUSCULAR HEMOGLOBIN 29.1 PG (27.0-34.0); MEAN CORPUSCULAR HGB CONC 32.3 % (32.0-36.0); MEAN PLATELET VOLUME 7.9 FL (7.0-11.0); PLATELET COUNT 201 TH/MM3 (150-450); RED BLOOD COUNT 3.85 MIL/MM3 (4.50-5.90); RED CELL DISTRIBUTION WIDTH 14.1 % (11.6-17.2); WHITE BLOOD COUNT 11.3 TH/MM3 (4.0-11.0)
[2017-06-20 05:34] LABS: BICARBONATE 20.7 MEQ/L (21.0-32.0); CALCIUM 7.9 MG/DL (8.5-10.1); CREATININE 0.74 MG/DL (0.60-1.30)
[2017-06-20] MEDS: PROPRANOLOL HCL 10 MG TAB PO SCH ×3 (05:48→21:17)
[2017-06-20] MEDS: cloNIDine HCL 0.3 MG TAB PO SCH ×3 (05:48→22:23)
[2017-06-20] MEDS: FREE WATER G-TUBE SCH ×3 (06:00→22:00)
--- NOTE | 2017-06-20 07:40 | HHI.CCPN ---
Subjective Remarks/Hospital Course 06/04: Mr. Reilly is a 61-year-old male with a history of COPD, hypertension, hyperlipidemia, CVA, schizoaffective disorder, bipolar disorder, GERD, renal failure, and arthritis who presented to the emergency room on 06/03/2017 from a [facility] facility for evaluation of altered mental status. Upon review of the medical records from the [facility] facility, it is noted he had a right lower lobe pneumonia diagnosed mid May. Head CT showed no acute infarct, acute hemorrhage, mass effect, or extra-axial fluid collection but scattered old lacunar infarcts within the bilateral basal ganglia. Mild periventricular and subcortical white matter small vessel ischemic changes bilaterally. Chest x-ray shows scattered bibasilar patchiness consistent with possible pneumonia. Per documentation : While in the ER, patient was in moderate respiratory distress with tachypnea and utilization of accessory abdominal muscles to breathe. His lung sounds are bilaterally congested and he is confused and a poor historian. His speech is slightly slurred but this is not a new finding. He was noted to be on 5 L nasal cannula with oxygen saturation of 94% in the emergency room. Patient was admitted to the ICU by the hospitalist service. He was initiated on heparin drip for suspicion of PE. He was also noted to have an elevated CPK and creatinine. His blood pressures were running high overnight. This afternoon patient developed worsening agitation and disorientation and confusion. His heparin was stopped earlier by Dr. Garcia due to low suspicion for PE. Patient developed worsening respiration status with respirations in the 30s and O2 sats in the mid 80s. Critical care medicine was consulted. Patient was emergently intubated by Dr. Elvira Gutierrez and I subsequently took over patient care. When I evaluated the patient he had been sedated for the intubation and is being placed on mechanical ventilation. History was obtained by discussion with Dr. Garcia, Dr. Gutierrez and ICU nursing staff as well as documentation in the chart. 06/05: Remains sedated, orally intubated on mechanical ventilation. 06/06: Sedated, orally intubated on mechanical ventilation. Failed C Pap trial today. Got extremely anxious on lightening sedation. 06/07 No events overnight. Sedated and intubated. Afebrile. 06/08 No events overnight. Sedated with Diprivan, Fentanyl and intubated. 06/09 Patient remains sedated and intubated. Afebrile.Did not tolerate CPAP trials yesterday. 06/10 Patient is sedated with Fentanyl and Diprivan. Afebrile. Did not tolerate CPAP yesterday as he became restless, agitated and tachycardic. 06/11 Patient remains sedated and intubated. Spiked fever with Tmax 101.1 06/12 No events overnight. Sedated and intubated. Afebrile. 06/13 Patient remains intubated and sedated with Diprivan, fentanyl in addition he is on Precedex drip. T:100.0 06/14 Patient remains sedated and intubated. Afebrile. Did not tolerate CPAP trials yesterday as he became tahypenic, tachycardic and restless. 06/15: agitation persists. respiratory failure persists. severely volume overloaded. has been intubated for almost 2 weeks. may require trach. CT abd/ pelvis without overt acute disease. no other source for fungemia. 06/16: s/p trach yesterday. no significant changes. 06/17: plan for PEG today. agitation persists with significant delirium. no other significant changes. 06/18: s/p PEG placement. weaning off sedation. still failing cpap trials. 06/19: cannot wean off precedex: agitated delirium persists. also still failing cpap trials. 06/20 No events overnight. On Precedex drip for agitation. T: 100.1 last night. Objective Vital Signs Date Time Temp Pulse Resp B/P (MAP) Pulse Ox O2 Delivery O2 Flow Rate FiO2 06/20/17 06:00 57 06/20/17 04:00 99.4 28 124/59 (80) 99 06/20/17 04:00 45 Intake and Output 06/20/17 06/20/17 06/21/17 08:00 16:00 00:00 Intake Total 866 ml Balance 866 ml Result Diagram: 06/20/17 0452 06/20/17 0452 Other Results Laboratory Tests Test 06/20/17 04:52 White Blood Count 11.3 TH/MM3 Red Blood Count 3.85 MIL/MM3 Hemoglobin 11.2 GM/DL Hematocrit 34.6 % Mean Corpuscular Volume 89.9 FL Mean Corpuscular Hemoglobin 29.1 PG Mean Corpuscular Hemoglobin Concent 32.3 % Red Cell Distribution Width 14.1 % Platelet Count 201 TH/MM3 Mean Platelet Volume 7.9 FL Blood Urea Nitrogen 29 MG/DL Creatinine 0.74 MG/DL Random Glucose 153 MG/DL Calcium Level 7.9 MG/DL Sodium Level 140 MEQ/L Potassium Level 3.6 MEQ/L Chloride Level 110 MEQ/L Carbon Dioxide Level 20.7 MEQ/L Anion Gap 9 MEQ/L Estimat Glomerular Filtration Rate 108 ML/MIN Imaging Last Impressions Chest X-Ray 06/19/17 0600 Signed Impressions: Service Date/Time: Monday, June 19, 2017 03:15 - CONCLUSION: Bibasilar areas of consolidation or atelectasis being worse on the left. Arvind Iyer MD Abdomen/Pelvis CT 06/14/17 0000 Signed Impressions: Service Date/Time: Wednesday, June 14, 2017 22:32 - CONCLUSION: 1. Increasing basilar lung consolidation since chest CT from June 04. 2. Mild ileus. No bowel obstruction, free air or free fluid. 3. Left hip replacement. Advanced osteoarthritis right hip. NG in stomach. Rectal tube present. Humphrey Weston MD Abdomen X-Ray 06/11/17 0000 Signed Impressions: Service Date/Time: Sunday, June 11, 2017 19:52 - CONCLUSION: 1. Mild gaseous distention of colon. NG tip in stomach. Rectal temperature probe present. Humphrey Weston MD Head CT 06/04/17 0000 Signed Impressions: Service Date/Time: Sunday, June 04, 2017 18:46 - CONCLUSION: 1. No significant change compared to 06/03/17. 2. No acute infarct, acute hemorrhage , mass effect or extra-axial fluid collection. 3. Scattered old lacunar infarcts within the bilateral basal ganglia. 4. Mild periventricular and subcortical white matter small vessel ischemic changes bilaterally. 5. Old right posterior parietal infarct. 6. Chronic opacification of right mastoid air cells. Mckay Stone MD Chest CT 06/04/17 0000 Signed Impressions: Service Date/Time: Sunday, June 04, 2017 18:49 - CONCLUSION: 1. Right mid lung field and posterior bibasilar patchiness consistent with probable areas of pneumonia and/or atelectasis. Clinical correlation is recommended. 2. Tiny bilateral pleural effusions. 3. Cardiomegaly and coronary artery calcifications. 4. Minimal scattered emphysematous changes bilaterally. Mckay Stone MD Objective Remarks GENERAL: middle-aged male appears older on ventilator via trach. SKIN: Warm and dry. HEAD: Normocephalic. EYES: No scleral icterus. No injection or drainage. NECK: trachea midline. No JVD. On ventilator via trach. CARDIOVASCULAR: normal rate, regular rhythm. RESPIRATORY: intubated. full mechanical support. GASTROINTESTINAL: Abdomen soft, non-tender, nondistended. MUSCULOSKELETAL: No cyanosis. Neuro: sedated. RASS -2/+1. moves all extremities spontaneously. does not follow commands. A/P Assessment and Plan Assessment: 61yM with history of schizoaffective d/o and bipolar d/o who presented with acute hypoxic respiratory failure and now fungemia without overt source. Not improving on pathway. No meaningful improvements over last 2 weeks. s/p trach 06/15 and PEG 06/17. remains off pathway. needs long-term acute care level of rehabilitation. agitation still the biggest barrier to successful weaning. Plan: Neuro: Acute Metabolic Encephalopathy Agitated Delirium - persistent. Schizoaffective disorder/bipolar disorder History of alcohol abuse History of CVA Geodon 10mg IM q12h prn for agitation continue Aricept and Cogentin Wean off Precedex drip as cordell. oxycodone 10mg po q4h clonidine to 0.3mg po q8h propranolol 10mg po q8h. add guanfacine 2mg po q12h CV: Uncontrolled hypertension - improving. hyperlipidemia Monitor HR and BP keep MAP>65mmHg On Lipitor. Norvasc 5mg daily, clonidine 0.3mg po q8h, propranolol 10mg po q8h 2-D echo with normal LV/RV function Pulmo: Acute respiratory failure requiring mechanical ventilation - persistent. COPD exacerbation Resolving community acquired pneumonia Intubated and placed on mechanical ventilation on 06/04. Continue with vent support keep sat >92%. Dcerease PEEP: 5 as cordell Vent bundle, bronchodilators, on prednisone taper. continue daily SBTs. trach 06/[address] Sapp/[facility] GI/liver: GERD Diarrhea Acute protein calorie malnutrition- severe Continue tube feeds-Glucerna 1.5@60ml/hr KUB abdomen: Mild gaseous distention Ct abd/pelvis 06/14: no acute disease C. Diff negative Renal/: ROSENDO/ CKD - resolved. Rhabdomyolysis - resolved. Acute intravascular volume overload- resolved. Metabolic alkalosis- resolving. daily BMP hold further diuresis ID: Fungemia Community Acquired Pneumonia- resolved. continue micafungin: plan for 14 days after 1st negative blood culture. ID is following Sputum cx: E.coli on 06/04, sputum 06/10: normal resp tamara BC 06/14: NGTD, 06/19: NGTD Endocrine: Hyperglycemia of critical illness SSI to high scale, q4h Heme: Anemia secondary to chronic disease Monitor CBC. Prophylaxis: Pepcid/SCDs. SQ Lovenox Lines: PIV Level 3 Katina Marcos MD Jun 20, 2017 07:40
[2017-06-20] MEDS: VENLAFAXINE HCL XR 75 MG CAP PO SCH (08:21)
[2017-06-20] MEDS: FAMOTIDINE 20 MG TAB PO SCH ×2 (08:21→21:20)
[2017-06-20] MEDS: guanFACINE HCL 1 MG TAB PO SCH ×2 (08:21→21:19)
[2017-06-20] MEDS: predniSONE 5 MG/5 ML CUP PO SCH (08:21)
[2017-06-20] MEDS: amLODIPine BESYLATE 5 MG TAB PO SCH (08:21)
[2017-06-20] MEDS: SODIUM CHLORIDE 0.9% FLUSH 10 ML FLUSH IV FLUSH SCH ×2 (08:22→21:20)
[2017-06-20] MEDS: NUTRISOURCE FIBER POWDER 1 PACK G-TUBE SCH ×2 (08:22→21:20)
[2017-06-20] MEDS: CHLORHEXIDINE 0.12% (ORAL KIT) 15 ML CUP MT SCH ×2 (08:23→20:14)
[2017-06-20] MEDS: DEXMEDETOMIDINE INJ 1,000 MCG in SODIUM CHLOR 0.9% 250 ML INJ 240 ML IV PRN ×2 (08:23→21:56)
[2017-06-20] MEDS: ACETAMINOPHEN 325 MG TAB PO PRN (12:20)
[2017-06-20] MEDS: MICAFUNGIN INJ 150 MG in SODIUM CHLORIDE 0.9% INJ 100 ML IV SCH (15:01)
--- NOTE | 2017-06-20 18:13 | HHI.PR ---
Subjective Remarks ON THE VENTILATOR SEDATED TRACH [place] PEG PLACED TODAY Objective Vital Signs Date Time Temp Pulse Resp B/P (MAP) Pulse Ox O2 Delivery O2 Flow Rate FiO2 06/20/17 17:15 18 06/20/17 16:00 61 06/20/17 16:00 40 06/20/17 16:00 98.8 61 18 167/79 (108) 96 06/20/17 14:00 63 06/20/17 13:29 20 06/20/17 12:45 40 06/20/17 12:14 97 35 06/20/17 12:00 66 06/20/17 12:00 99.2 66 21 140/72 (94) 97 06/20/17 10:00 61 06/20/17 08:49 40 06/20/17 08:39 40 06/20/17 08:39 100 40 06/20/17 08:00 53 06/20/17 08:00 99.0 65 20 128/65 (86) 98 06/20/17 06:00 57 06/20/17 04:00 65 06/20/17 04:00 99.4 65 28 124/59 (80) 99 06/20/17 04:00 45 06/20/17 03:34 97 45 06/20/17 02:00 59 06/20/17 00:08 99 45 06/20/17 00:00 45 06/20/17 00:00 99.7 62 23 118/56 (76) 98 06/20/17 00:00 62 06/19/17 22:00 57 06/19/17 20:14 96 45 06/19/17 20:00 45 06/19/17 20:00 66 06/19/17 20:00 100.1 66 24 126/64 (84) 97 I/O 06/19/17 06/19/17 06/19/17 06/20/17 06/20/17 06/20/17 07:00 15:00 23:00 07:00 15:00 23:00 Intake Total 744 ml 350 ml 853 ml 866 ml 100 ml Output Total 200 ml 1100 ml Balance 544 ml 350 ml -247 ml 866 ml 100 ml IV Total 350 ml 100 ml Tube Feeding 244 ml 453 ml 366 ml Other 500 ml 400 ml 500 ml Output Urine Total 700 ml Stool Total 200 ml 400 ml # Voids 3 3 # Bowel Movements 1 Result Diagram: 06/20/17 0452 06/20/17 045 Objective Remarks GENERAL: SKIN: Warm and dry. HEAD: Atraumatic. Normocephalic. EYES: Pupils equal and round. No scleral icterus. No injection or drainage. ENT: No nasal bleeding or discharge. Mucous membranes pink and moist. NECK: Trachea midline. No JVD. CARDIOVASCULAR: Regular rate and rhythm. RESPIRATORY: No accessory muscle use. SCATTERED RHONCHI. GASTROINTESTINAL: Abdomen soft, non-tender, nondistended. Hepatic and splenic margins not palpable. MUSCULOSKELETAL: Extremities without clubbing, cyanosis, or edema. No obvious deformities. NEUROLOGICAL: Awake and alert. No obvious cranial nerve deficits. Motor grossly within normal limits. Five out of 5 muscle strength in the arms and legs. Normal speech. PSYCHIATRIC: Appropriate mood and affect; insight and judgment normal. Assessment and Plan Assessment and Plan RESPIRATORY FAILURE COPD PNA CXRAY 06/15 STABLE PLAN VENT SUPPORT WEAN TOLERATED BRONCHODILATORS PULM. TOILET Marcos Rodríguez MD Jun 20, 2017 18:13
--- NOTE | 2017-06-20 20:13 | HHI.IDPN ---
Subjective Subjective Remarks cont to have low grade fever x 1 in the last 24 hrs C glabrate in 07/[address] abd/pel w/o acute pathology pt sp PEG/trach failing CPAPs diarrhea seems subsided Antibiotics mycafungin Allergies: Coded Allergies: hydrochlorothiazide (Unverified Allergy, Intermediate, EFFECTS HIS SODIUM LEVEL, 02/12/17) PT STATES HE IS NOT ALLERGIC codeine (Unverified Adverse Reaction, Severe, 02/12/17) PT STATES HE IS NOT ALLERGIC Objective . Vital Signs Date Time Temp Pulse Resp B/P (MAP) Pulse Ox O2 Delivery O2 Flow Rate FiO2 06/20/17 18:00 58 06/20/17 17:15 18 06/20/17 16:00 61 06/20/17 16:00 40 06/20/17 16:00 98.8 61 18 167/79 (108) 96 06/20/17 14:00 63 06/20/17 13:29 20 06/20/17 12:45 40 06/20/17 12:14 97 35 06/20/17 12:00 66 06/20/17 12:00 99.2 66 21 140/72 (94) 97 06/20/17 10:00 61 06/20/17 08:49 40 06/20/17 08:39 40 06/20/17 08:39 100 40 06/20/17 08:00 53 06/20/17 08:00 99.0 65 20 128/65 (86) 98 06/20/17 06:00 57 06/20/17 04:00 65 06/20/17 04:00 99.4 65 28 124/59 (80) 99 06/20/17 04:00 45 06/20/17 03:34 97 45 06/20/17 02:00 59 06/20/17 00:08 99 45 06/20/17 00:00 45 06/20/17 00:00 99.7 62 23 118/56 (76) 98 06/20/17 00:00 62 06/19/17 22:00 57 06/19/17 20:14 96 45 06/20/17 06/20/17 06/21/17 15:00 23:00 07:00 Intake Total 961 ml Output Total 850 ml Balance 111 ml IV Total 100 ml Tube Feeding 661 ml Other 200 ml Output Urine Total 850 ml . Laboratory Tests Test 06/19/17 01:35 06/20/17 04:52 White Blood Count 12.1 TH/MM3 11.3 TH/MM3 Red Blood Count 3.94 MIL/MM3 3.85 MIL/MM3 Hemoglobin 11.4 GM/DL 11.2 GM/DL Hematocrit 35.4 % 34.6 % Mean Corpuscular Volume 89.8 FL 89.9 FL Mean Corpuscular Hemoglobin 28.9 PG 29.1 PG Mean Corpuscular Hemoglobin Concent 32.2 % 32.3 % Red Cell Distribution Width 14.1 % 14.1 % Platelet Count 225 TH/MM3 201 TH/MM3 Mean Platelet Volume 7.9 FL 7.9 FL Laboratory Tests Test 06/19/17 01:35 06/20/17 04:52 Blood Urea Nitrogen 31 MG/DL 29 MG/DL Creatinine 0.64 MG/DL 0.74 MG/DL Random Glucose 88 MG/DL 153 MG/DL Calcium Level 8.4 MG/DL 7.9 MG/DL Sodium Level 142 MEQ/L 140 MEQ/L Potassium Level 4.2 MEQ/L 3.6 MEQ/L Chloride Level 114 MEQ/L 110 MEQ/L Carbon Dioxide Level 23.8 MEQ/L 20.7 MEQ/L Anion Gap 4 MEQ/L 9 MEQ/L Estimat Glomerular Filtration Rate 128 ML/MIN 108 ML/MIN Microbiology Date/Time Source Procedure Growth Status 06/19/17 01:35 Blood Peripheral Aerobic Blood Culture - Preliminary NO GROWTH IN 1 DAY Resulted 06/19/17 01:35 Blood Peripheral Anaerobic Blood Culture - Preliminary NO GROWTH IN 1 DAY Resulted 06/19/17 01:30 Blood Peripheral Aerobic Blood Culture - Preliminary NO GROWTH IN 1 DAY Resulted 06/19/17 01:30 Blood Peripheral Anaerobic Blood Culture - Preliminary NO GROWTH IN 1 DAY Resulted Imaging Last Impressions Chest X-Ray 06/19/17 0600 Signed Impressions: Service Date/Time: Monday, June 19, 2017 03:15 - CONCLUSION: Bibasilar areas of consolidation or atelectasis being worse on the left. Arvind Iyer MD Abdomen/Pelvis CT 06/14/17 0000 Signed Impressions: Service Date/Time: Wednesday, June 14, 2017 22:32 - CONCLUSION: 1. Increasing basilar lung consolidation since chest CT from June 04. 2. Mild ileus. No bowel obstruction, free air or free fluid. 3. Left hip replacement. Advanced osteoarthritis right hip. NG in stomach. Rectal tube present. Humphrey Weston MD Abdomen X-Ray 06/11/17 0000 Signed Impressions: Service Date/Time: Sunday, June 11, 2017 19:52 - CONCLUSION: 1. Mild gaseous distention of colon. NG tip in stomach. Rectal temperature probe present. Humphrey Westno MD Head CT 06/04/17 0000 Signed Impressions: Service Date/Time: Sunday, June 04, 2017 18:46 - CONCLUSION: 1. No significant change compared to 06/03/17. 2. No acute infarct, acute hemorrhage , mass effect or extra-axial fluid collection. 3. Scattered old lacunar infarcts within the bilateral basal ganglia. 4. Mild periventricular and subcortical white matter small vessel ischemic changes bilaterally. 5. Old right posterior parietal infarct. 6. Chronic opacification of right mastoid air cells. Mckay Stone MD Chest CT 06/04/17 0000 Signed Impressions: Service Date/Time: Sunday, June 04, 2017 18:49 - CONCLUSION: 1. Right mid lung field and posterior bibasilar patchiness consistent with probable areas of pneumonia and/or atelectasis. Clinical correlation is recommended. 2. Tiny bilateral pleural effusions. 3. Cardiomegaly and coronary artery calcifications. 4. Minimal scattered emphysematous changes bilaterally. Mckay Stone MD Physical Exam CONSTITUTIONAL/GENERAL: This is an adequately nourished patient, in no apparent distress. TUBES/LINES/DRAINS: SKIN: No jaundice, rashes, or lesions. Skin temperature appropriate. Not diaphoretic. EYES: Pupils equal and round and reactive. Extraocular motions intact. No scleral icterus. No injection or drainage. Fundi not examined. CARDIOVASCULAR: Regular rate and rhythm without murmurs, gallops, or rubs. No JVD. Peripheral pulses symmetric. RESPIRATORY/CHEST: Symmetric, unlabored respirations. Clear to auscultation. Breath sounds equal bilaterally. No wheezes, rales, or rhonchi. GASTROINTESTINAL: Abdomen soft, appears tender, grimacing on palpation, still somewhat distended. No hepato-splenomegaly, or palpable masses. No guarding. Bowel sounds present, hyperactive . GENITOURINARY: Without palpable bladder distension. condom catheter in place with clear yellow MUSCULOSKELETAL: Extremities without clubbing, cyanosis, or edema. No joint tenderness or effusion noted. No calf tenderness. No mottling or clubbing. NEUROLOGICAL: moves all 4 extremeties, awake, alert, not communicating PSYCHIATRIC: unable to assess Assessment & Plan Remarks Assessment and Plan Mental status change, PNA, E.coli Acute VDRF, failure to wean Multiple med problems worsning leukocytosis source: worsening PNA also consicder intar abd UA nos cw infx Abdominal distention, diarrhea C.diff negative Persistent leukocytosis C glabrata funguria - no central lines,? source 2 D echo neg Persistent leukocytosis cont mycafungin, anticipate 14 days at least from 1 st neg clx repeat blood clx (persistent interemittent fever) fu CXR repeat sputum clx Ml Wiseman MD Jun 20, 2017 20:13
[2017-06-20] MEDS: DONEPEZIL HCL 5 MG TAB PO SCH (21:18)
[2017-06-20] MEDS: risperiDONE 1 MG TAB PO SCH (21:18)
[2017-06-20] MEDS: ATORVASTATIN 40 MG TAB PO SCH (21:19)
[2017-06-20] MEDS: TAMSULOSIN HCL 0.4 MG CAP PO SCH (21:20)
[2017-06-20] MEDS: BENZTROPINE MESYLATE 1 MG TAB PO SCH (21:20)
[2017-06-20] MEDS: hydrALAZINE HCL 20 MG/ML VIAL IV PUSH PRN (22:23)
[2017-06-21] VITALS (18 sets, daily range): BP systolic 155–181; BP diastolic 72–83; PULSE 49–79; RESP 23–36; TEMP 97.2–99.2; O2SAT 93–100
[2017-06-21] MEDS: INSULIN NovoLIN REGULAR SUPPLEMENTAL SCALE SQ SCH ×6 (00:22→21:31)
[2017-06-21] MEDS: oxyCODONE HCL ORAL CONC 5 MG/0.25 ML SYRINGE PO SCH ×4 (00:23→11:53)
[2017-06-21] MEDS: RESP: ALBUTEROL 2.5 MG/IPRATROPIUM 0.5 MG NEB (SCH) NEB ×5 (03:26→20:54)
[2017-06-21] MEDS: CHLORHEXIDINE GLUCONATE 2 % 1 PACK (2 CLOTHS) TOP SCH (03:54)
[2017-06-21] MEDS: FREE WATER G-TUBE SCH ×3 (06:00→21:33)
[2017-06-21 06:58] LABS: AUTOMATED NEUTROPHIL # 9.7 TH/MM3 (1.8-7.7); BASOPHIL % 0.3 % (0.0-2.0); EOSINOPHIL # 0.1 TH/MM3 (0-0.4); EOSINOPHIL % 0.8 % (0.0-4.0); HEMATOCRIT 35.9 % (39.0-51.0); HEMOGLOBIN 12.2 GM/DL (13.0-17.0); LYMPH % 7.3 % (9.0-44.0); LYMPHOCYTE # 0.8 TH/MM3 (1.0-4.8); MEAN CELL VOLUME 88.7 FL (80.0-100.0); MEAN CORPUSCULAR HGB CONC 33.8 % (32.0-36.0); MEAN PLATELET VOLUME 8.2 FL (7.0-11.0); MONOCYTE # 0.4 TH/MM3 (0-0.9); NEUT % 87.6 % (16.0-70.0); PLATELET COUNT 226 TH/MM3 (150-450); RED BLOOD COUNT 4.05 MIL/MM3 (4.50-5.90); WHITE BLOOD COUNT 11.1 TH/MM3 (4.0-11.0)
[2017-06-21] MEDS: cloNIDine HCL 0.3 MG TAB PO SCH ×3 (07:03→21:33)
[2017-06-21] MEDS: PROPRANOLOL HCL 10 MG TAB PO SCH (07:03)
[2017-06-21 07:22] LABS: BICARBONATE 23.8 MEQ/L (21.0-32.0); CALCIUM 8.3 MG/DL (8.5-10.1); CREATININE 0.52 MG/DL (0.60-1.30)
[2017-06-21] MEDS: FAMOTIDINE 20 MG TAB PO SCH ×2 (07:59→21:33)
[2017-06-21] MEDS: guanFACINE HCL 1 MG TAB PO SCH ×2 (07:59→21:33)
[2017-06-21] MEDS: VENLAFAXINE HCL XR 75 MG CAP PO SCH (07:59)
[2017-06-21] MEDS: NUTRISOURCE FIBER POWDER 1 PACK G-TUBE SCH ×2 (08:00→21:32)
[2017-06-21] MEDS: SODIUM CHLORIDE 0.9% FLUSH 10 ML FLUSH IV FLUSH SCH ×2 (08:00→21:32)
[2017-06-21] MEDS: predniSONE 5 MG/5 ML CUP PO SCH (08:00)
[2017-06-21] MEDS: amLODIPine BESYLATE 5 MG TAB PO SCH (08:00)
[2017-06-21] MEDS: CHLORHEXIDINE 0.12% (ORAL KIT) 15 ML CUP MT SCH ×2 (08:01→21:31)
--- NOTE | 2017-06-21 10:09 | HHI.CCPN ---
Subjective Remarks/Hospital Course 06/04: Mr. Reilly is a 61-year-old male with a history of COPD, hypertension, hyperlipidemia, CVA, schizoaffective disorder, bipolar disorder, GERD, renal failure, and arthritis who presented [facility] the [facility]/2017 [facility] for evaluation of altered mental status. Upon review of the medical records [facility], it is noted he had a right lower lobe pneumonia diagnosed mid May. Head CT showed no acute infarct, acute hemorrhage, mass effect, or extra-axial fluid collection but scattered old lacunar infarcts within the bilateral basal ganglia. Mild periventricular and subcortical white matter small vessel ischemic changes bilaterally. Chest x-ray shows scattered bibasilar patchiness consistent with possible pneumonia. Per documentation : While in the ER, patient was in moderate respiratory distress with tachypnea and utilization of accessory abdominal muscles to breathe. His lung sounds are bilaterally congested and he is confused and a poor historian. His speech is slightly slurred but this is not a new finding. He was noted to be on 5 L nasal cannula with oxygen saturation of 94% in the emergency room. Patient was admitted to the ICU by the hospitalist service. He was initiated on heparin drip for suspicion of PE. He was also noted to have an elevated CPK and creatinine. His blood pressures were running high overnight. This afternoon patient developed worsening agitation and disorientation and confusion. His heparin was stopped earlier by Dr. Garcia due to low suspicion for PE. Patient developed worsening respiration status with respirations in the 30s and O2 sats in the mid 80s. Critical care medicine was consulted. Patient was emergently intubated by Dr. Elvira Gutierrez and I subsequently took over patient care. When I evaluated the patient he had been sedated for the intubation and is being placed on mechanical ventilation. History was obtained by discussion with Dr. Garcia, Dr. Gutierrez and ICU nursing staff as well as documentation in the chart. 06/05: Remains sedated, orally intubated on mechanical ventilation. 06/06: Sedated, orally intubated on mechanical ventilation. Failed C Pap trial today. Got extremely anxious on lightening sedation. 06/07 No events overnight. Sedated and intubated. Afebrile. 06/08 No events overnight. Sedated with Diprivan, Fentanyl and intubated. 06/09 Patient remains sedated and intubated. Afebrile.Did not tolerate CPAP trials yesterday. 06/10 Patient is sedated with Fentanyl and Diprivan. Afebrile. Did not tolerate CPAP yesterday as he became restless, agitated and tachycardic. 06/11 Patient remains sedated and intubated. Spiked fever with Tmax 101.1 06/12 No events overnight. Sedated and intubated. Afebrile. 06/13 Patient remains intubated and sedated with Diprivan, fentanyl in addition he is on Precedex drip. T:100.0 06/14 Patient remains sedated and intubated. Afebrile. Did not tolerate CPAP trials yesterday as he became tahypenic, tachycardic and restless. 06/15: agitation persists. respiratory failure persists. severely volume overloaded. has been intubated for almost 2 weeks. may require trach. CT abd/ pelvis without overt acute disease. no other source for fungemia. 06/16: s/p trach yesterday. no significant changes. 06/17: plan for PEG today. agitation persists with significant delirium. no other significant changes. 06/18: s/p PEG placement. weaning off sedation. still failing cpap trials. 06/19: cannot wean off precedex: agitated delirium persists. also still failing cpap trials. 06/20 No events overnight. On Precedex drip for agitation. T: 100.1 last night. 06/21 No events overnight. Remains on Precedex drip. Afebrile. Objective Vital Signs Date Time Temp Pulse Resp B/P (MAP) Pulse Ox O2 Delivery O2 Flow Rate FiO2 06/21/17 08:36 100 35 06/21/17 06:00 79 06/21/17 04:54 29 06/21/17 04:00 98.9 181/83 (115) Intake and Output 06/21/17 06/21/17 06/22/17 08:00 16:00 00:00 Intake Total 806 ml Output Total 1200 ml Balance -394 ml Result Diagram: 06/21/17 0540 06/21/17 0540 Other Results Laboratory Tests Test 06/21/17 05:40 White Blood Count 11.1 TH/MM3 Red Blood Count 4.05 MIL/MM3 Hemoglobin 12.2 GM/DL Hematocrit 35.9 % Mean Corpuscular Volume 88.7 FL Mean Corpuscular Hemoglobin 30.0 PG Mean Corpuscular Hemoglobin Concent 33.8 % Red Cell Distribution Width 14.0 % Platelet Count 226 TH/MM3 Mean Platelet Volume 8.2 FL Neutrophils (%) (Auto) 87.6 % Lymphocytes (%) (Auto) 7.3 % Monocytes (%) (Auto) 4.0 % Eosinophils (%) (Auto) 0.8 % Basophils (%) (Auto) 0.3 % Neutrophils # (Auto) 9.7 TH/MM3 Lymphocytes # (Auto) 0.8 TH/MM3 Monocytes # (Auto) 0.4 TH/MM3 Eosinophils # (Auto) 0.1 TH/MM3 Basophils # (Auto) 0.0 TH/MM3 CBC Comment DIFF FINAL Differential Comment Blood Urea Nitrogen 22 MG/DL Creatinine 0.52 MG/DL Random Glucose 131 MG/DL Calcium Level 8.3 MG/DL Phosphorus Level 2.0 MG/DL Magnesium Level 2.0 MG/DL Sodium Level 139 MEQ/L Potassium Level 3.9 MEQ/L Chloride Level 108 MEQ/L Carbon Dioxide Level 23.8 MEQ/L Anion Gap 7 MEQ/L Estimat Glomerular Filtration Rate 162 ML/MIN Imaging Last Impressions Chest X-Ray 06/19/17 0600 Signed Impressions: Service Date/Time: Monday, June 19, 2017 03:15 - CONCLUSION: Bibasilar areas of consolidation or atelectasis being worse on the left. Arvind Iyer MD Abdomen/Pelvis CT 06/14/17 0000 Signed Impressions: Service Date/Time: Wednesday, June 14, 2017 22:32 - CONCLUSION: 1. Increasing basilar lung consolidation since chest CT from June 04. 2. Mild ileus. No bowel obstruction, free air or free fluid. 3. Left hip replacement. Advanced osteoarthritis right hip. NG in stomach. Rectal tube present. Humphrey Weston MD Abdomen X-Ray 06/11/17 0000 Signed Impressions: Service Date/Time: Sunday, June 11, 2017 19:52 - CONCLUSION: 1. Mild gaseous distention of colon. NG tip in stomach. Rectal temperature probe present. Humphrey Weston MD Head CT 06/04/17 0000 Signed Impressions: Service Date/Time: Sunday, June 04, 2017 18:46 - CONCLUSION: 1. No significant change compared to 06/03/17. 2. No acute infarct, acute hemorrhage , mass effect or extra-axial fluid collection. 3. Scattered old lacunar infarcts within the bilateral basal ganglia. 4. Mild periventricular and subcortical white matter small vessel ischemic changes bilaterally. 5. Old right posterior parietal infarct. 6. Chronic opacification of right mastoid air cells. Mckay Stone MD Chest CT 06/04/17 0000 Signed Impressions: Service Date/Time: Sunday, June 04, 2017 18:49 - CONCLUSION: 1. Right mid lung field and posterior bibasilar patchiness consistent with probable areas of pneumonia and/or atelectasis. Clinical correlation is recommended. 2. Tiny bilateral pleural effusions. 3. Cardiomegaly and coronary artery calcifications. 4. Minimal scattered emphysematous changes bilaterally. Mckay Stone MD Objective Remarks GENERAL: middle-aged male appears older on ventilator via trach. SKIN: Warm and dry. HEAD: Normocephalic. EYES: No scleral icterus. No injection or drainage. NECK: trachea midline. No JVD. On ventilator via trach. CARDIOVASCULAR: normal rate, regular rhythm. RESPIRATORY: intubated. full mechanical support. GASTROINTESTINAL: Abdomen soft, non-tender, nondistended. MUSCULOSKELETAL: No cyanosis. Neuro: sedated. RASS -2/+1. moves all extremities spontaneously. does not follow commands. A/P Assessment and Plan Assessment: 61yM with history of schizoaffective d/o and bipolar d/o who presented with acute hypoxic respiratory failure and now fungemia without overt source. Not improving on pathway. No meaningful improvements over last 2 weeks. s/p trach 06/15 and PEG 06/17. remains off pathway. needs long-term acute care level of rehabilitation. agitation still the biggest barrier to successful weaning. Plan: Neuro: Acute Metabolic Encephalopathy Agitated Delirium - persistent. Schizoaffective disorder/bipolar disorder History of alcohol abuse History of CVA Monitor neuro status, check EEG and MRI brain. Neuro eval. Check Ammonia level. Geodon 10mg IM q12h prn for agitation continue Aricept and Cogentin Wean off Precedex drip as cordell. clonidine to 0.3mg po q8h guanfacine 2mg po q12h CV: Uncontrolled hypertension - improving. hyperlipidemia Monitor HR and BP keep MAP>65mmHg On Lipitor. Norvasc 5mg daily, clonidine 0.3mg po q8h, change propranolol to Lopressor 50mg Q12 2-D echo with normal LV/RV function Pulmo: Acute respiratory failure requiring mechanical ventilation - persistent. COPD exacerbation Resolving community acquired pneumonia Intubated and placed on mechanical ventilation on 06/04. Continue with vent support keep sat >92%. Dcerease PEEP: 5 as cordell Vent bundle, bronchodilators, on prednisone taper. continue daily SBTs. trach 06/[address] Sapp/[facility] GI/liver: GERD Diarrhea Acute protein calorie malnutrition- severe Continue tube feeds-Glucerna 1.5@60ml/hr KUB abdomen: Mild gaseous distention Ct abd/pelvis 06/14: no acute disease C. Diff negative Renal/: ROSENDO/ CKD - resolved. Rhabdomyolysis - resolved. Acute intravascular volume overload- resolved. Metabolic alkalosis- resolving. Monitor renal function, electrolytes replacement as needed ID: Fungemia Community Acquired Pneumonia- resolved. continue micafungin: plan for 14 days after 1st negative blood culture. ID is following Sputum cx: E.coli on 06/04, sputum 06/10: normal resp tamara BC 06/14, 06/19 : NGTD, Endocrine: Hyperglycemia of critical illness SSI to high scale, q4h Heme: Anemia secondary to chronic disease Monitor CBC. Prophylaxis: Pepcid/SCDs. SQ Lovenox Lines: PIV Level 3 Katina Marcos MD Jun 21, 2017 10:09
[2017-06-21] MEDS: METOPROLOL TARTRATE 50 MG TAB PO SCH ×2 (11:53→21:33)
[2017-06-21] MEDS: MICAFUNGIN INJ 150 MG in SODIUM CHLORIDE 0.9% INJ 100 ML IV SCH (13:59)
[2017-06-21] MEDS: fentaNYL DRIP 250 ML IV PRN (16:02)
[2017-06-21] MEDS: DEXMEDETOMIDINE INJ 1,000 MCG in SODIUM CHLOR 0.9% 250 ML INJ 240 ML IV PRN (16:02)
--- NOTE | 2017-06-21 16:08 | HHI.PR ---
Subjective Remarks ON THE VENTILATOR SEDATED TRACH [place] Objective Vital Signs Date Time Temp Pulse Resp B/P (MAP) Pulse Ox O2 Delivery O2 Flow Rate FiO2 06/21/17 15:38 100 50 06/21/17 14:00 61 06/21/17 12:33 35 06/21/17 12:33 97 35 06/21/17 12:00 62 06/21/17 12:00 98.4 62 34 158/75 (102) 97 06/21/17 12:00 35 06/21/17 10:00 57 06/21/17 09:15 18 06/21/17 08:36 100 35 06/21/17 08:35 35 06/21/17 08:00 60 06/21/17 08:00 35 06/21/17 08:00 98.3 60 23 167/72 (103) 99 06/21/17 06:26 100 35 06/21/17 06:00 79 06/21/17 04:00 40 06/21/17 04:00 60 06/21/17 04:00 98.9 60 30 181/83 (115) 95 06/21/17 02:00 58 06/21/17 01:31 93 35 06/21/17 00:00 99.2 73 24 176/77 (110) 94 06/21/17 00:00 40 06/21/17 00:00 73 06/20/17 22:03 96 35 06/20/17 22:00 53 06/20/17 20:00 98.7 60 30 182/85 (117) 96 06/20/17 20:00 60 06/20/17 20:00 40 06/20/17 18:00 58 I/O 06/20/17 06/20/17 06/20/17 06/21/17 06/21/17 06/21/17 07:00 15:00 23:00 07:00 15:00 23:00 Intake Total 866 ml 961 ml 806 ml Output Total 850 ml 1200 ml Balance 866 ml 111 ml -394 ml IV Total 100 ml Tube Feeding 366 ml 661 ml 306 ml Other 500 ml 200 ml 500 ml Output Urine Total 850 ml 1200 ml # Voids 3 # Bowel Movements 1 1 Result Diagram: 06/21/1753906/21/1740 Objective Remarks GENERAL: SKIN: Warm and dry. HEAD: Atraumatic. Normocephalic. EYES: Pupils equal and round. No scleral icterus. No injection or drainage. ENT: No nasal bleeding or discharge. Mucous membranes pink and moist. NECK: Trachea midline. No JVD. CARDIOVASCULAR: Regular rate and rhythm. RESPIRATORY: No accessory muscle use. SCATTERED RHONCHI. GASTROINTESTINAL: Abdomen soft, non-tender, nondistended. Hepatic and splenic margins not palpable. MUSCULOSKELETAL: Extremities without clubbing, cyanosis, or edema. No obvious deformities. NEUROLOGICAL: Awake and alert. No obvious cranial nerve deficits. Motor grossly within normal limits. Five out of 5 muscle strength in the arms and legs. Normal speech. PSYCHIATRIC: Appropriate mood and affect; insight and judgment normal. Assessment and Plan Assessment and Plan RESPIRATORY FAILURE COPD PNA CXRAY 06/15 STABLE PLAN VENT SUPPORT WEAN TOLERATED BRONCHODILATORS PULM. TOILET Marcos Rodríguez MD Jun 21, 2017 16:08
--- NOTE | 2017-06-21 16:09 | PD.CONS ---
History of Present Illness Service Neurology Consult Requested By [facility] Reason for Consult confusion Primary Care Physician Adonay Clark M.D. History of Present Illness 61-year-old male with hx of cognitive impairment, schizophrenia admitted with resp changes and mental status changes. has gotten trach/peg. rn noticing pt to have resp dyssynchrony. neuro consulted for further evaluation. pt currently endorses pain and will be receiving meds shortly. pt being seen by ccm/pulm/id Patient is a poor historian with altered mental status and the following is obtained from the medical record: Review of Systems ROS Limitations: as above PFSH Past Family Social History Past Medical History COPD Hypertension Hyperlipidemia stroke Schizoaffective disorder Bipolar disorder GERD Acute renal failure Arthritis Alcohol withdrawal seizures . Past Surgical History Patient is a poor historian with altered mental status and the following is obtained from the medical record: Left partial pneumonectomy Left hip surgery . Allergies: Coded Allergies: hydrochlorothiazide (Unverified Allergy, Intermediate, EFFECTS HIS SODIUM LEVEL, 02/12/17) PT STATES HE IS NOT ALLERGIC codeine (Unverified Adverse Reaction, Severe, 02/12/17) PT STATES HE IS NOT ALLERGIC *MDRO Multi-Drug Resistant Organism (Verified Adverse Reaction, Unknown, ) MRSA (sputum) - 2012 & 2013 ESBL (sputum) - 2013 Carbapenem resistant Pseudomonas aeruginosa (sputum) - 2013 . Family History Patient is a poor historian with altered mental status and the following is unable to be obtained . Social History Patient is a poor historian with altered mental status and the following is obtained from the medical record: Tobacco: History of tobacco abuse for many years Alcohol: History of alcohol abuse Review of Systems All other ROS: ROS reviewed as documented in chart Past Family Social History Allergies: Coded Allergies: hydrochlorothiazide (Unverified Allergy, Intermediate, EFFECTS HIS SODIUM LEVEL, 02/12/17) PT STATES HE IS NOT ALLERGIC codeine (Unverified Adverse Reaction, Severe, 02/12/17) PT STATES HE IS NOT ALLERGIC Active Ordered Medications Current Medications Medications (Trade) Dose Ordered Sig/Solange Route Start Time Stop Time Status Last Admin (Narcan Inj) 0.4 mg UNSCH PRN IV PUSH 06/03/17 21:45 (Duoneb Neb) 1 ampule Q2HR NEB PRN NEB 06/03/17 22:45 06/18/17 12:13 (Lipitor) 40 mg HS PO 06/04/17 21:00 06/20/17 21:19 (Cogentin) 1 mg HS PO 06/04/17 21:00 06/20/17 21:20 (Aricept) 5 mg HS PO 06/04/17 21:00 06/20/17 21:18 (risperDAL) 1 mg HS PO 06/04/17 21:00 Future hold 06/20/17 21:18 (Flomax) 0.4 mg HS PO 06/04/17 21:00 06/20/17 21:20 (Effexor Xr) 150 mg DAILY PO 06/04/17 09:00 06/21/17 07:59 Miscellaneous Information 1 Q361D XX 06/04/17 03:45 (Chlorhexidine 2% Cloth) Taper DAILY@04 TOP 06/04/17 04:00 05/31/18 03:59 06/21/17 03:54 (Chlorhexidine 2% Cloth) 3 pack UNSCH PRN TOP 06/04/17 03:45 (Norvasc) 5 mg DAILY PO 06/04/17 12:00 06/21/17 08:00 (Apresoline Inj) 10 mg Q4H PRN IV PUSH 06/04/17 13:00 06/20/17 22:23 (NS Flush) 2 ml UNSCH PRN IV FLUSH 06/04/17 16:45 (NS Flush) 2 ml BID IV FLUSH 06/04/17 21:00 06/20/17 21:20 (Peridex 0.12% Liq) 15 ml BID@08,20 MT 06/04/17 20:00 06/21/17 08:01 (Trandate Inj) 20 mg Q4H PRN IV PUSH 06/04/17 17:00 06/10/17 15:35 (Lovenox Inj) 40 mg Q24H SQ 06/05/17 17:00 Future Hold 06/16/17 15:33 (Free Water) 250 ml Q8HR G-TUBE 06/09/17 10:00 06/21/17 13:59 Dexmedetomidine HCl 1000 mcg/ Sodium Chloride 250 ml @ 4.95 mls/hr TITRATE PRN IV 06/10/17 09:30 06/20/17 21:56 (Tylenol) 650 mg Q4H PRN PO 06/10/17 12:15 06/20/17 12:20 (Pepcid) 20 mg Q12HR PO 06/10/17 21:00 06/21/17 07:59 (Glucagon Inj) 1 mg UNSCH PRN OTHER 06/12/17 10:45 Micafungin Sodium 150 mg/Sodium Chloride 100 ml @ 100 mls/hr Q24H IV 06/14/17 14:00 06/21/17 13:59 (Mycostatin Powder) 1 applic Q12HR PRN TOPICAL 06/14/17 11:00 (Mag-Ox) 800 mg UNSCH PRN PO 06/15/17 07:00 Magnesium Sulfate 4 gm/Sodium Chloride 100 ml @ 50 mls/hr UNSCH PRN IV 06/15/17 07:00 Magnesium Sulfate 2 gm/Sodium Chloride 100 ml @ 50 mls/hr UNSCH PRN IV 06/15/17 07:00 Potassium Chloride 100 ml @ 50 mls/hr Q2H PRN IV 06/15/17 07:00 06/17/17 18:35 Potassium Chloride 100 ml @ 50 mls/hr Q2H PRN IV 06/15/17 07:00 06/16/17 10:30 Potassium Chloride 100 ml @ 50 mls/hr Q2H PRN IV 06/15/17 07:00 Potassium Chloride 100 ml @ 25 mls/hr UNSCH PRN IV 06/15/17 07:00 (K-Phos) 2,000 mg Q4H PRN PO 06/15/17 07:00 (K-Phos) 2,000 mg UNSCH PRN PO/TUBE 06/15/17 07:00 Potassium Phosphate 30 mmol/ Sodium Chloride 260 ml @ 42 mls/hr UNSCH PRN IV 06/15/17 07:00 Sodium Phosphate 30 mmol/Sodium Chloride 250 ml @ 42 mls/hr UNSCH PRN IV 06/15/17 07:00 (D50w (Vial) Inj) 25 ml UNSCH PRN IV PUSH 06/15/17 07:00 (NovoLIN R SUPPLEMENTAL SCALE) 1 Q4HR SQ 06/15/17 08:00 06/21/17 13:59 (Geodon Inj) 10 mg Q12H PRN IM 06/15/17 07:15 06/19/17 10:24 (Nutrisource Fiber Powder) 2 pack BID G-TUBE 06/15/17 09:00 06/21/17 08:00 (predniSONE LIQ) 20 mg Taper DAILY PO 06/18/17 09:00 06/24/17 08:59 06/21/17 08:00 (Duoneb Neb) 1 ampule Q4HR NEB NEB 06/18/17 12:00 06/21/17 15:35 (Catapres) 0.3 mg Q8HR PO 06/18/17 14:00 06/21/17 14:00 (Tenex) 2 mg Q12HR PO 06/19/17 14:00 06/21/17 07:59 (Imodium Liq) 2 mg UNSCH PRN PO 06/19/17 17:45 (Lopressor) 50 mg Q12HR PO 06/21/17 11:00 06/21/17 11:53 Fentanyl Citrate 250 ml @ 5 mls/hr TITRATE PRN IV 06/21/17 15:45 UNV Exam I&O / VS Vital Signs Date Time Temp Pulse Resp B/P (MAP) Pulse Ox O2 Delivery O2 Flow Rate FiO2 06/21/17 15:38 100 50 06/21/17 14:00 61 06/21/17 12:33 35 06/21/17 12:33 97 35 06/21/17 12:00 62 06/21/17 12:00 98.4 62 34 158/75 (102) 97 06/21/17 12:00 35 06/21/17 10:00 57 06/21/17 09:15 18 06/21/17 08:36 100 35 06/21/17 08:35 35 06/21/17 08:00 60 06/21/17 08:00 35 06/21/17 08:00 98.3 60 23 167/72 (103) 99 06/21/17 06:26 100 35 06/21/17 06:00 79 06/21/17 04:00 40 06/21/17 04:00 60 06/21/17 04:00 98.9 60 30 181/83 (115) 95 06/21/17 02:00 58 06/21/17 01:31 93 35 06/21/17 00:00 99.2 73 24 176/77 (110) 94 06/21/17 00:00 40 06/21/17 00:00 73 06/20/17 22:03 96 35 06/20/17 22:00 53 06/20/17 20:00 98.7 60 30 182/85 (117) 96 06/20/17 20:00 60 06/20/17 20:00 40 06/20/17 18:00 58 06/20/17 16:00 61 06/20/17 16:00 40 06/20/17 16:00 98.8 61 18 167/79 (108) 96 Exam Comments awake, trach/peg, severe hypophonic speech making it difficult to understand him , follows, eomi, + blink to threat, mild reduced left nlf, weaker cargo checker on left, withdraws alisha le to tactile, planterflexor response 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 parietal infarct recs f/u eeg f/u mri brain nh3 mildly elevated; lactulose d/w rn follow exam (2) Acute hypercapnic respiratory failure ICD Codes: J96.02 - Acute respiratory failure with hypercapnia Status: Acute (3) Acute renal insufficiency ICD Codes: N28.9 - Disorder of kidney and ureter, unspecified Status: Acute (4) Rhabdomyolysis ICD Codes: M62.82 - Rhabdomyolysis Status: Acute Problem Qualifiers (1) Rhabdomyolysis: Qualified Codes: M62.82 - Rhabdomyolysis Kevin Gleason MD Jun 21, 2017 16:09
--- NOTE | 2017-06-21 16:58 | RADRPT ---
EXAM DATE/TIME: 06/21/2017 16:21 [place] COMPARISON: CHEST SINGLE AP, June 19, 2017, 3:15. INDICATIONS : Evaluate for pneumonia. MEDICAL HISTORY : Hepatitis C. Chronic obstructive pulmonary disease. Hypertension. Stroke. SURGICAL HISTORY : None. ENCOUNTER: Subsequent ACUITY: 1 week PAIN SCORE: 0/10 LOCATION: Bilateral chest FINDINGS: Trach tube with bibasilar parenchymal changes. These are worse on the left. Minimal improvement. N egative for pneumothorax. CONCLUSION: Negative for pneumothorax. Minimal improvement particularly left.. Usman Pimentel MD FACR on June 21, 2017 at 16:55 Board Certified Radiologist. This report was verified electronically.
[2017-06-21] MEDS: LACTULOSE SYRUP 20 GM/30 ML CUP PO SCH (17:12)
[2017-06-21] MEDS: BENZTROPINE MESYLATE 1 MG TAB PO SCH (21:33)
[2017-06-21] MEDS: ATORVASTATIN 40 MG TAB PO SCH (21:33)
[2017-06-21] MEDS: DONEPEZIL HCL 5 MG TAB PO SCH (21:33)
[2017-06-21] MEDS: risperiDONE 1 MG TAB PO SCH (21:33)
[2017-06-21] MEDS: TAMSULOSIN HCL 0.4 MG CAP PO SCH (21:33)
--- NOTE | 2017-06-21 21:36 | MG ---
cc: NOAH DOMINGUEZ MD Lab No: Date: 06/21/2017 Age: 61 Sex: M Race: 61-year-old intubated on Precedex. Ethanol use. Strokes. Previous seizures. Generalized 1-3 Hz delta activity, 10-30 microvolts with some spindles noted on top. Eye movement artifact. Myogenic fast frequency the frontal channels. No driving with photic stimulation. Mild EEG variability reactivity. Single lead EKG showing sinus rhythm. INTERPRETATION: Moderate encephalopathy. Clinical correlation. MD JUAN FRANCISCO Joseph/JASSI /8:23 PM /9:14 PM
[2017-06-22] VITALS (21 sets, daily range): BP systolic 121–164; BP diastolic 64–79; PULSE 49–82; RESP 16–38; TEMP 97–99.7; O2SAT 93–100
[2017-06-22] MEDS: RESP: ALBUTEROL 2.5 MG/IPRATROPIUM 0.5 MG NEB (SCH) NEB ×3 (00:29→09:19)
[2017-06-22] MEDS: INSULIN NovoLIN REGULAR SUPPLEMENTAL SCALE SQ SCH ×5 (00:48→16:40)
[2017-06-22] MEDS: CHLORHEXIDINE GLUCONATE 2 % 1 PACK (2 CLOTHS) TOP SCH (04:00)
[2017-06-22] MEDS: LACTULOSE SYRUP 20 GM/30 ML CUP PO SCH ×3 (04:30→16:41)
[2017-06-22] MEDS: cloNIDine HCL 0.3 MG TAB PO SCH ×3 (05:58→20:49)
[2017-06-22] MEDS: DEXMEDETOMIDINE INJ 1,000 MCG in SODIUM CHLOR 0.9% 250 ML INJ 240 ML IV PRN ×3 (05:59→20:57)
[2017-06-22] MEDS: FREE WATER G-TUBE SCH ×3 (05:59→20:50)
[2017-06-22 07:10] LABS: AUTOMATED NEUTROPHIL # 12.6 TH/MM3 (1.8-7.7); BASOPHIL % 0.2 % (0.0-2.0); EOSINOPHIL # 0.2 TH/MM3 (0-0.4); EOSINOPHIL % 1.7 % (0.0-4.0); HEMOGLOBIN 11.9 GM/DL (13.0-17.0); LYMPH % 6.9 % (9.0-44.0); MEAN CELL VOLUME 89.7 FL (80.0-100.0); MEAN CORPUSCULAR HEMOGLOBIN 29.6 PG (27.0-34.0); MONO % 4.7 % (0.0-8.0); MONOCYTE # 0.7 TH/MM3 (0-0.9); NEUT % 86.5 % (16.0-70.0); PLATELET COUNT 213 TH/MM3 (150-450); RED BLOOD COUNT 4.01 MIL/MM3 (4.50-5.90); RED CELL DISTRIBUTION WIDTH 14.5 % (11.6-17.2); WHITE BLOOD COUNT 14.5 TH/MM3 (4.0-11.0)
[2017-06-22 07:20] LABS: BICARBONATE 22.8 MEQ/L (21.0-32.0); CALCIUM 8.5 MG/DL (8.5-10.1); CREATININE 0.59 MG/DL (0.60-1.30)
[2017-06-22] MEDS: guanFACINE HCL 1 MG TAB PO SCH ×2 (08:21→20:49)
[2017-06-22] MEDS: VENLAFAXINE HCL XR 75 MG CAP PO SCH (08:21)
[2017-06-22] MEDS: METOPROLOL TARTRATE 50 MG TAB PO SCH ×2 (08:21→21:18)
[2017-06-22] MEDS: amLODIPine BESYLATE 5 MG TAB PO SCH (08:21)
[2017-06-22] MEDS: FAMOTIDINE 20 MG TAB PO SCH ×2 (08:21→20:49)
[2017-06-22] MEDS: predniSONE 5 MG/5 ML CUP PO SCH (08:21)
[2017-06-22] MEDS: CHLORHEXIDINE 0.12% (ORAL KIT) 15 ML CUP MT SCH ×2 (08:22→20:50)
[2017-06-22] MEDS: NUTRISOURCE FIBER POWDER 1 PACK G-TUBE SCH ×2 (08:22→21:19)
[2017-06-22] MEDS: SODIUM CHLORIDE 0.9% FLUSH 10 ML FLUSH IV FLUSH SCH ×2 (08:22→20:48)
--- NOTE | 2017-06-22 09:14 | HHI.CCPN ---
Subjective Remarks/Hospital Course 06/04: Mr. Reilly is a 61-year-old male with a history of COPD, hypertension, hyperlipidemia, CVA, schizoaffective disorder, bipolar disorder, GERD, renal failure, and arthritis who presented to the emergency room on 06/03/2017 from a correction facility for evaluation of altered mental status. Upon review of the medical records from the correction facility, it is noted he had a right lower lobe pneumonia diagnosed mid May. Head CT showed no acute infarct, acute hemorrhage, mass effect, or extra-axial fluid collection but scattered old lacunar infarcts within the bilateral basal ganglia. Mild periventricular and subcortical white matter small vessel ischemic changes bilaterally. Chest x-ray shows scattered bibasilar patchiness consistent with possible pneumonia. Per documentation : While in the ER, patient was in moderate respiratory distress with tachypnea and utilization of accessory abdominal muscles to breathe. His lung sounds are bilaterally congested and he is confused and a poor historian. His speech is slightly slurred but this is not a new finding. He was noted to be on 5 L nasal cannula with oxygen saturation of 94% in the emergency room. Patient was admitted to the ICU by the hospitalist service. He was initiated on heparin drip for suspicion of PE. He was also noted to have an elevated CPK and creatinine. His blood pressures were running high overnight. This afternoon patient developed worsening agitation and disorientation and confusion. His heparin was stopped earlier by Dr. Garcia due to low suspicion for PE. Patient developed worsening respiration status with respirations in the 30s and O2 sats in the mid 80s. Critical care medicine was consulted. Patient was emergently intubated by Dr. Elvira Gutierrez and I subsequently took over patient care. When I evaluated the patient he had been sedated for the intubation and is being placed on mechanical ventilation. History was obtained by discussion with Dr. Garcia, Dr. Gutierrez and ICU nursing staff as well as documentation in the chart. 06/05: Remains sedated, orally intubated on mechanical ventilation. 06/06: Sedated, orally intubated on mechanical ventilation. Failed C Pap trial today. Got extremely anxious on lightening sedation. 06/07 No events overnight. Sedated and intubated. Afebrile. 06/08 No events overnight. Sedated with Diprivan, Fentanyl and intubated. 06/09 Patient remains sedated and intubated. Afebrile.Did not tolerate CPAP trials yesterday. 06/10 Patient is sedated with Fentanyl and Diprivan. Afebrile. Did not tolerate CPAP yesterday as he became restless, agitated and tachycardic. 06/11 Patient remains sedated and intubated. Spiked fever with Tmax 101.1 06/12 No events overnight. Sedated and intubated. Afebrile. 06/13 Patient remains intubated and sedated with Diprivan, fentanyl in addition he is on Precedex drip. T:100.0 06/14 Patient remains sedated and intubated. Afebrile. Did not tolerate CPAP trials yesterday as he became tahypenic, tachycardic and restless. 06/15: agitation persists. respiratory failure persists. severely volume overloaded. has been intubated for almost 2 weeks. may require trach. CT abd/ pelvis without overt acute disease. no other source for fungemia. 06/16: s/p trach yesterday. no significant changes. 06/17: plan for PEG today. agitation persists with significant delirium. no other significant changes. 06/18: s/p PEG placement. weaning off sedation. still failing cpap trials. 06/19: cannot wean off precedex: agitated delirium persists. also still failing cpap trials. 06/20 No events overnight. On Precedex drip for agitation. T: 100.1 last night. 06/21 No events overnight. Remains on Precedex drip. Afebrile. 06/22 Patient is sedated with Fentanyl and Precedex. Afebrile. For MRI brain today. Objective Vital Signs Date Time Temp Pulse Resp B/P (MAP) Pulse Ox O2 Delivery O2 Flow Rate FiO2 06/22/17 06:00 55 06/22/17 04:22 96 50 06/22/17 04:00 98.4 32 147/76 (99) Intake and Output 06/22/17 06/22/17 06/23/17 08:00 16:00 00:00 Intake Total 945 ml Output Total 525 ml Balance 420 ml Result Diagram: 06/22/1737 06/22/17636 Other Results Laboratory Tests Test 06/21/17 12:59 06/21/17 15:30 06/22/17 06:37 Ammonia 42 MCMOL/L Blood Gas Puncture Site RT RADIAL Blood Gas Patient Temperature 98.6 Blood Gas HCO3 20 mmol/L Blood Gas Base Excess -2.7 mmol/L Blood Gas Oxygen Saturation 93 % Arterial Blood pH 7.47 Arterial Blood Partial Pressure CO2 28 mmHg Arterial Blood Partial Pressure O2 72 mmHg Arterial Blood Oxygen Content 15.3 Vol % Arterial Blood Carboxyhemoglobin 1.0 % Arterial Blood Methemoglobin 1.2 % Blood Gas Hemoglobin 11.7 G/DL Oxygen Delivery Device VENTILATOR Blood Gas Ventilator Setting PRVC16/500/0.75/+8 Blood Gas Inspired Oxygen 35 % White Blood Count 14.5 TH/MM3 Red Blood Count 4.01 MIL/MM3 Hemoglobin 11.9 GM/DL Hematocrit 36.0 % Mean Corpuscular Volume 89.7 FL Mean Corpuscular Hemoglobin 29.6 PG Mean Corpuscular Hemoglobin Concent 33.0 % Red Cell Distribution Width 14.5 % Platelet Count 213 TH/MM3 Mean Platelet Volume 8.0 FL Neutrophils (%) (Auto) 86.5 % Lymphocytes (%) (Auto) 6.9 % Monocytes (%) (Auto) 4.7 % Eosinophils (%) (Auto) 1.7 % Basophils (%) (Auto) 0.2 % Neutrophils # (Auto) 12.6 TH/MM3 Lymphocytes # (Auto) 1.0 TH/MM3 Monocytes # (Auto) 0.7 TH/MM3 Eosinophils # (Auto) 0.2 TH/MM3 Basophils # (Auto) 0.0 TH/MM3 CBC Comment DIFF FINAL Differential Comment Blood Urea Nitrogen 24 MG/DL Creatinine 0.59 MG/DL Random Glucose 153 MG/DL Calcium Level 8.5 MG/DL Sodium Level 137 MEQ/L Potassium Level 4.5 MEQ/L Chloride Level 106 MEQ/L Carbon Dioxide Level 22.8 MEQ/L Anion Gap 8 MEQ/L Estimat Glomerular Filtration Rate 140 ML/MIN Imaging Last Impressions Chest X-Ray 06/21/17 0000 Signed Impressions: Service Date/Time: Wednesday, June 21, 2017 16:21 - CONCLUSION: Negative for pneumothorax. Minimal improvement particularly left.. Usman Pimentel MD FACR Abdomen/Pelvis CT 06/14/17 0000 Signed Impressions: Service Date/Time: Wednesday, June 14, 2017 22:32 - CONCLUSION: 1. Increasing basilar lung consolidation since chest CT from June 04. 2. Mild ileus. No bowel obstruction, free air or free fluid. 3. Left hip replacement. Advanced osteoarthritis right hip. NG in stomach. Rectal tube present. Humphrey Weston MD Abdomen X-Ray 06/11/17 0000 Signed Impressions: Service Date/Time: Sunday, June 11, 2017 19:52 - CONCLUSION: 1. Mild gaseous distention of colon. NG tip in stomach. Rectal temperature probe present. Humphrey Weston MD Head CT 06/04/17 0000 Signed Impressions: Service Date/Time: Sunday, June 04, 2017 18:46 - CONCLUSION: 1. No significant change compared to 06/03/17. 2. No acute infarct, acute hemorrhage , mass effect or extra-axial fluid collection. 3. Scattered old lacunar infarcts within the bilateral basal ganglia. 4. Mild periventricular and subcortical white matter small vessel ischemic changes bilaterally. 5. Old right posterior parietal infarct. 6. Chronic opacification of right mastoid air cells. Mckay Stone MD Chest CT 06/04/17 0000 Signed Impressions: Service Date/Time: Sunday, June 04, 2017 18:49 - CONCLUSION: 1. Right mid lung field and posterior bibasilar patchiness consistent with probable areas of pneumonia and/or atelectasis. Clinical correlation is recommended. 2. Tiny bilateral pleural effusions. 3. Cardiomegaly and coronary artery calcifications. 4. Minimal scattered emphysematous changes bilaterally. Mckay Stone MD Objective Remarks GENERAL: middle-aged male appears older on ventilator via trach. SKIN: Warm and dry. HEAD: Normocephalic. EYES: No scleral icterus. No injection or drainage. NECK: trachea midline. No JVD. On ventilator via trach. CARDIOVASCULAR: normal rate, regular rhythm. RESPIRATORY: intubated. full mechanical support. GASTROINTESTINAL: Abdomen soft, non-tender, nondistended. MUSCULOSKELETAL: No cyanosis. Neuro: sedated. RASS -2/+1. moves all extremities spontaneously. does not follow commands. A/P Assessment and Plan Assessment: 61yM with history of schizoaffective d/o and bipolar d/o who presented with acute hypoxic respiratory failure and now fungemia without overt source. Not improving on pathway. No meaningful improvements over last 2 weeks. s/p trach 06/15 and PEG 06/17. remains off pathway. needs long-term acute care level of rehabilitation. agitation still the biggest barrier to successful weaning. Plan: Neuro: Acute Metabolic Encephalopathy Agitated Delirium - persistent. Schizoaffective disorder/bipolar disorder History of alcohol abuse History of CVA On Fentanyl and Precedex drip for agitation and vent synchrony. Increase Ammonia level 30ml TID, Ammonia level slightly elevated 42. Monitor neuro status,For MRI brain today. EEG showed mod. encephalopathy Neuro is following. Dr. Wayne Cheatham 10mg IM q12h prn for agitation continue Aricept and Cogentin clonidine to 0.3mg po q8h guanfacine 2mg po q12h CV: Uncontrolled hypertension - improving. hyperlipidemia Monitor HR and BP keep MAP>65mmHg On Lipitor. Norvasc 5mg daily, clonidine 0.3mg po q8h, Lopressor 50mg Q12 2-D echo with normal LV/RV function Pulmo: Acute respiratory failure requiring mechanical ventilation - persistent. COPD exacerbation Resolving community acquired pneumonia Intubated and placed on mechanical ventilation on 06/04. Continue with vent support keep sat >92%. Vent bundle, bronchodilators, on prednisone taper. continue daily SBTs. trach 06/[address] Sapp/[facility] GI/liver: GERD Diarrhea Acute protein calorie malnutrition- severe Continue tube feeds-Glucerna 1.5@60ml/hr KUB abdomen: Mild gaseous distention Ct abd/pelvis 06/14: no acute disease C. Diff negative Renal/: ROSENDO/ CKD - resolved. Rhabdomyolysis - resolved. Acute intravascular volume overload- resolved. Metabolic alkalosis- resolving. Monitor renal function, electrolytes replacement as needed ID: Fungemia Community Acquired Pneumonia- resolved. continue micafungin: plan for 14 days after 1st negative blood culture. ID is following Sputum cx: E.coli on 06/04, sputum 06/10: normal resp tamara BC 06/14, 06/19 : NGTD, Endocrine: Hyperglycemia of critical illness SSI to high scale, q4h Heme: Anemia secondary to chronic disease Monitor CBC. Prophylaxis: Pepcid/SCDs. SQ Lovenox Lines: PIV Level 3 Katina Marcos MD Jun 22, 2017 09:14
--- NOTE | 2017-06-22 10:27 | HHI.PR ---
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 parietal infarct nh3 mildly elevated; lactulose recs f/u eeg- no sz's f/u mri brain-pending d/w rn follow exam (2) Acute hypercapnic respiratory failure ICD Codes: J96.02 - Acute respiratory failure with hypercapnia Status: Acute (3) Acute renal insufficiency ICD Codes: N28.9 - Disorder of kidney and ureter, unspecified Status: Acute (4) Rhabdomyolysis ICD Codes: M62.82 - Rhabdomyolysis Status: Acute Subjective Subjective Comments No acute events reported Active Medications Current Medications Medications (Trade) Dose Ordered Sig/Solange Route Start Time Stop Time Status Last Admin (Narcan Inj) 0.4 mg UNSCH PRN IV PUSH 06/03/17 21:45 (Duoneb Neb) 1 ampule Q2HR NEB PRN NEB 06/03/17 22:45 06/18/17 12:13 (Lipitor) 40 mg HS PO 06/04/17 21:00 06/21/17 21:33 (Cogentin) 1 mg HS PO 06/04/17 21:00 06/21/17 21:33 (Aricept) 5 mg HS PO 06/04/17 21:00 06/21/17 21:33 (risperDAL) 1 mg HS PO 06/04/17 21:00 Future hold 06/21/17 21:33 (Flomax) 0.4 mg HS PO 06/04/17 21:00 06/21/17 21:33 (Effexor Xr) 150 mg DAILY PO 06/04/17 09:00 06/22/17 08:21 Miscellaneous Information 1 Q361D XX 06/04/17 03:45 (Chlorhexidine 2% Cloth) Taper DAILY@04 TOP 06/04/17 04:00 05/31/18 03:59 06/22/17 04:00 (Chlorhexidine 2% Cloth) 3 pack UNSCH PRN TOP 06/04/17 03:45 (Norvasc) 5 mg DAILY PO 06/04/17 12:00 06/22/17 08:21 (Apresoline Inj) 10 mg Q4H PRN IV PUSH 06/04/17 13:00 06/20/17 22:23 (NS Flush) 2 ml UNSCH PRN IV FLUSH 06/04/17 16:45 (NS Flush) 2 ml BID IV FLUSH 06/04/17 21:00 06/22/17 08:22 (Peridex 0.12% Liq) 15 ml BID@08,20 MT 06/04/17 20:00 06/22/17 08:22 (Trandate Inj) 20 mg Q4H PRN IV PUSH 06/04/17 17:00 06/10/17 15:35 (Lovenox Inj) 40 mg Q24H SQ 06/05/17 17:00 Future Hold 06/16/17 15:33 (Free Water) 250 ml Q8HR G-TUBE 06/09/17 10:00 06/22/17 05:59 Dexmedetomidine HCl 1000 mcg/ Sodium Chloride 250 ml @ 4.95 mls/hr TITRATE PRN IV 06/10/17 09:30 06/22/17 05:59 (Tylenol) 650 mg Q4H PRN PO 06/10/17 12:15 06/20/17 12:20 (Pepcid) 20 mg Q12HR PO 06/10/17 21:00 06/22/17 08:21 (Glucagon Inj) 1 mg UNSCH PRN OTHER 06/12/17 10:45 Micafungin Sodium 150 mg/Sodium Chloride 100 ml @ 100 mls/hr Q24H IV 06/14/17 14:00 06/21/17 13:59 (Mycostatin Powder) 1 applic Q12HR PRN TOPICAL 06/14/17 11:00 (Mag-Ox) 800 mg UNSCH PRN PO 06/15/17 07:00 Magnesium Sulfate 4 gm/Sodium Chloride 100 ml @ 50 mls/hr UNSCH PRN IV 06/15/17 07:00 Magnesium Sulfate 2 gm/Sodium Chloride 100 ml @ 50 mls/hr UNSCH PRN IV 06/15/17 07:00 Potassium Chloride 100 ml @ 50 mls/hr Q2H PRN IV 06/15/17 07:00 06/17/17 18:35 Potassium Chloride 100 ml @ 50 mls/hr Q2H PRN IV 06/15/17 07:00 06/16/17 10:30 Potassium Chloride 100 ml @ 50 mls/hr Q2H PRN IV 06/15/17 07:00 Potassium Chloride 100 ml @ 25 mls/hr UNSCH PRN IV 06/15/17 07:00 (K-Phos) 2,000 mg Q4H PRN PO 06/15/17 07:00 (K-Phos) 2,000 mg UNSCH PRN PO/TUBE 06/15/17 07:00 Potassium Phosphate 30 mmol/ Sodium Chloride 260 ml @ 42 mls/hr UNSCH PRN IV 06/15/17 07:00 Sodium Phosphate 30 mmol/Sodium Chloride 250 ml @ 42 mls/hr UNSCH PRN IV 06/15/17 07:00 (D50w (Vial) Inj) 25 ml UNSCH PRN IV PUSH 06/15/17 07:00 (NovoLIN R SUPPLEMENTAL SCALE) 1 Q4HR SQ 06/15/17 08:00 06/22/17 08:28 (Geodon Inj) 10 mg Q12H PRN IM 06/15/17 07:15 06/19/17 10:24 (Nutrisource Fiber Powder) 2 pack BID G-TUBE 06/15/17 09:00 06/22/17 08:22 (predniSONE LIQ) 10 mg Taper DAILY PO 06/18/17 09:00 06/24/17 08:59 06/22/17 08:21 (Duoneb Neb) 1 ampule Q4HR NEB NEB 06/18/17 12:00 06/22/17 09:19 (Catapres) 0.3 mg Q8HR PO 06/18/17 14:00 06/22/17 05:58 (Tenex) 2 mg Q12HR PO 06/19/17 14:00 06/22/17 08:21 (Imodium Liq) 2 mg UNSCH PRN PO 06/19/17 17:45 (Lopressor) 50 mg Q12HR PO 06/21/17 11:00 06/22/17 08:21 Fentanyl Citrate 250 ml @ 5 mls/hr TITRATE PRN IV 06/21/17 15:45 06/21/17 16:02 (Lactulose Liq) 30 ml TID PO 06/22/17 13:00 Allergies Allergies Coded Allergies hydrochlorothiazide (Unverified Allergy, Intermediate, EFFECTS HIS SODIUM LEVEL, 02/12/17) codeine (Unverified Adverse Reaction, Severe, 02/12/17) Review of Systems All other ROS: ROS reviewed as documented in chart Exam I&O / VS Vital Signs Date Time Temp Pulse Resp B/P (MAP) Pulse Ox O2 Delivery O2 Flow Rate FiO2 06/22/17 09:20 97 40 06/22/17 06:00 55 06/22/17 04:22 96 50 06/22/17 04:00 58 06/22/17 04:00 98.4 58 32 147/76 (99) 93 06/22/17 04:00 35 06/22/17 02:00 51 06/22/17 00:29 100 50 06/22/17 00:00 35 06/22/17 00:00 49 06/22/17 00:00 98.0 49 18 164/79 (107) 100 06/21/17 22:00 60 06/21/17 20:55 99 50 06/21/17 20:00 49 06/21/17 20:00 35 06/21/17 20:00 97.2 49 25 155/83 (107) 100 06/21/17 18:00 51 06/21/17 16:00 99.0 61 36 157/75 (102) 97 06/21/17 16:00 64 06/21/17 16:00 35 06/21/17 15:38 100 50 06/21/17 14:00 61 06/21/17 12:33 35 06/21/17 12:33 97 35 06/21/17 12:00 62 06/21/17 12:00 98.4 62 34 158/75 (102) 97 06/21/17 12:00 35 Exam Comments awake, trach/peg, severe hypophonic speech making it difficult to understand him , follows, eomi, + blink to threat, mild reduced left nlf, weaker jacquard loom card changer on left, withdraws alisha le to tactile, planterflexor response Objective Micro and Labs Laboratory Tests Test 06/21/17 12:59 06/21/17 15:30 06/22/17 06:37 Ammonia 42 Blood Gas Puncture Site RT RADIAL Blood Gas Patient Temperature 98.6 Blood Gas HCO3 20 Blood Gas Base Excess -2.7 Blood Gas Oxygen Saturation 93 Arterial Blood pH 7.47 Arterial Blood Partial Pressure CO2 28 Arterial Blood Partial Pressure O2 72 Arterial Blood Oxygen Content 15.3 Arterial Blood Carboxyhemoglobin 1.0 Arterial Blood Methemoglobin 1.2 Blood Gas Hemoglobin 11.7 Oxygen Delivery Device VENTILATOR Blood Gas Ventilator Setting PRVC16/500/0.75/+8 Blood Gas Inspired Oxygen 35 White Blood Count 14.5 Red Blood Count 4.01 Hemoglobin 11.9 Hematocrit 36.0 Mean Corpuscular Volume 89.7 Mean Corpuscular Hemoglobin 29.6 Mean Corpuscular Hemoglobin Concent 33.0 Red Cell Distribution Width 14.5 Platelet Count 213 Mean Platelet Volume 8.0 Neutrophils (%) (Auto) 86.5 Lymphocytes (%) (Auto) 6.9 Monocytes (%) (Auto) 4.7 Eosinophils (%) (Auto) 1.7 Basophils (%) (Auto) 0.2 Neutrophils # (Auto) 12.6 Lymphocytes # (Auto) 1.0 Monocytes # (Auto) 0.7 Eosinophils # (Auto) 0.2 Basophils # (Auto) 0.0 CBC Comment DIFF FINAL Differential Comment Blood Urea Nitrogen 24 Creatinine 0.59 Random Glucose 153 Calcium Level 8.5 Sodium Level 137 Potassium Level 4.5 Chloride Level 106 Carbon Dioxide Level 22.8 Anion Gap 8 Estimat Glomerular Filtration Rate 140 Date/Time Source Procedure Growth Status 06/19/17 01:35 Blood Peripheral Aerobic Blood Culture - Preliminary NO GROWTH IN 2 DAYS Resulted 06/19/17 01:35 Blood Peripheral Anaerobic Blood Culture - Preliminary NO GROWTH IN 2 DAYS Resulted 06/21/17 13:30 Sputum Expectorated Sputum Gram Stain - Final Resulted 06/21/17 13:30 Sputum Expectorated Sputum Sputum Culture Pending Resulted 06/10/17 12:45 Urine Catheterized Urine Urine Culture - Final NO GROWTH IN 48 HOURS. Complete Problem Qualifiers (1) Rhabdomyolysis: Qualified Codes: M62.82 - Rhabdomyolysis Kevin Gleason MD Jun 22, 2017 10:27
[2017-06-22] MEDS ORDERED: HALOPERIDOL LACTATE 5 MG/ML AMP IV PUSH ONE (12:15)
[2017-06-22] MEDS ORDERED: MIDAZOLAM HCL 5 MG/ML VIAL (1 ML) ONE (12:28)
[2017-06-22] MEDS ORDERED: MIDAZOLAM HCL 2 MG/2 ML VIAL IV PUSH ONE (12:45)
--- NOTE | 2017-06-22 13:36 | RADRPT ---
EXAM DATE/TIME: 06/22/2017 12:10 [facility] COMPARISON: No previous studies available for comparison. INDICATIONS : Altered mental status. MEDICAL HISTORY : Renal failure, chronic. SURGICAL HISTORY : Left hip surgery. ENCOUNTER: Initial ACUITY: 1 day PAIN SCORE: 0/10 LOCATION: cranial TECHNIQUE: Multiplanar, multisequence MRI of the brain was performed without contrast. FINDINGS: There is no restricted diffusion to suggest acute ischemic event. Moderate periventricular white mat ter changes are noted. Lacunar infarcts basalganglia bilaterally There is no parenchymal hemorrhage. No extra-axial fluid collections appreciated. Posterior fossa is unremarkable Minimal ethmoid sinus disease is evident. CONCLUSION: All ischemic changes, negative for acute ischemic event. Negative for parenchymal hemorrhage. Usman Pimentel MD FACR on June 22, 2017 at 13:32 Board Certified Radiologist. This report was verified electronically.
[2017-06-22] MEDS: fentaNYL DRIP 250 ML IV PRN ×2 (13:43→23:48)
[2017-06-22] MEDS: MICAFUNGIN INJ 150 MG in SODIUM CHLORIDE 0.9% INJ 100 ML IV SCH (15:37)
--- NOTE | 2017-06-22 17:38 | HHI.PR ---
Subjective Remarks 61 YOWM with VDRF,Trach,COPD did't tolerate CPAP Sedated with Fentanyl and Precedex No Fever Objective Vital Signs Vital Signs Date Time Temp Pulse Resp B/P (MAP) Pulse Ox O2 Delivery O2 Flow Rate FiO2 06/22/17 16:00 51 06/22/17 16:00 99.7 51 16 121/64 (83) 99 06/22/17 16:00 50 06/22/17 15:55 99 40 06/22/17 14:00 55 06/22/17 13:27 100 100 06/22/17 12:00 97.0 82 38 152/78 (102) 99 06/22/17 12:00 82 06/22/17 12:00 50 06/22/17 11:52 96 40 06/22/17 10:00 60 06/22/17 09:20 97 40 06/22/17 08:00 57 06/22/17 08:00 50 06/22/17 08:00 98.6 57 22 139/72 (94) 98 06/22/17 06:00 55 06/22/17 04:22 96 50 06/22/17 04:00 58 06/22/17 04:00 98.4 58 32 147/76 (99) 93 06/22/17 04:00 35 06/22/17 02:00 51 06/22/17 00:29 100 50 06/22/17 00:00 35 06/22/17 00:00 49 06/22/17 00:00 98.0 49 18 164/79 (107) 100 06/21/17 22:00 60 06/21/17 20:55 99 50 06/21/17 20:00 49 06/21/17 20:00 35 06/21/17 20:00 97.2 49 25 155/83 (107) 100 06/21/17 18:00 51 I/O 06/21/17 06/21/17 06/21/17 06/22/17 06/22/17 06/22/17 07:00 15:00 23:00 07:00 15:00 23:00 Intake Total 806 ml 100 ml 831 ml 945 ml 77 ml Output Total 1200 ml 900 ml 525 ml Balance -394 ml 100 ml -69 ml 420 ml 77 ml IV Total 100 ml 77 ml Tube Feeding 306 ml 631 ml 695 ml Other 500 ml 200 ml 250 ml Output Urine Total 1200 ml 900 ml 525 ml # Bowel Movements 1 0 Result Diagram: 06/22/17 0637 06/22/17 0637 Objective Remarks GENERAL: MBMN WM, on Vent, sedated SKIN: Warm and dry. HEAD: Normocephalic. EYES: No scleral icterus. No injection or drainage. NECK: Supple, trachea midline. No JVD or lymphadenopathy. CARDIOVASCULAR: Regular rate and rhythm without murmurs, gallops, or rubs. RESPIRATORY: Breath sounds equal bilaterally. No accessory muscle use. GASTROINTESTINAL: Abdomen soft, non-tender, nondistended. MUSCULOSKELETAL: No cyanosis, or edema. BACK: Nontender without obvious deformity. No CVA tenderness. A/P Assessment and Plan VDRF S/P Trach COPD COPD Schzoaffective disorder Bipolar disorder PLAN: Vent Support Cont Abx Sputum culture Sedation with Fentanyl and Precedex Syed Cuellar MD Jun 22, 2017 17:38
--- NOTE | 2017-06-22 20:31 | HHI.IDPN ---
Subjective Subjective Remarks cont to have low grade fever + greenish endotracheal drainage failing CPAP trials repeat blood clx are negative growing E.coli, PSAE from 06/21 sputum Antibiotics mycafungin Allergies: Coded Allergies: hydrochlorothiazide (Unverified Allergy, Intermediate, EFFECTS HIS SODIUM LEVEL, 02/12/17) PT STATES HE IS NOT ALLERGIC codeine (Unverified Adverse Reaction, Severe, 02/12/17) PT STATES HE IS NOT ALLERGIC Objective . Vital Signs Date Time Temp Pulse Resp B/P (MAP) Pulse Ox O2 Delivery O2 Flow Rate FiO2 06/22/17 20:17 100 40 06/22/17 18:00 55 06/22/17 16:00 51 06/22/17 16:00 99.7 51 16 121/64 (83) 99 06/22/17 16:00 50 06/22/17 15:55 99 40 06/22/17 14:00 55 06/22/17 13:27 100 100 06/22/17 12:00 97.0 82 38 152/78 (102) 99 06/22/17 12:00 82 06/22/17 12:00 50 06/22/17 11:52 96 40 06/22/17 10:00 60 06/22/17 09:20 97 40 06/22/17 08:00 57 06/22/17 08:00 50 06/22/17 08:00 98.6 57 22 139/72 (94) 98 06/22/17 06:00 55 06/22/17 04:22 96 50 06/22/17 04:00 58 06/22/17 04:00 98.4 58 32 147/76 (99) 93 06/22/17 04:00 35 06/22/17 02:00 51 06/22/17 00:29 100 50 06/22/17 00:00 35 06/22/17 00:00 49 06/22/17 00:00 98.0 49 18 164/79 (107) 100 06/21/17 22:00 60 06/21/17 20:55 99 50 06/22/17 06/22/17 06/23/17 15:00 23:00 07:00 Intake Total 77 ml 1218 ml Output Total 500 ml Balance 77 ml 718 ml IV Total 77 ml 280 ml Tube Feeding 508 ml Tube Irrigant 180 ml Other 250 ml Output Urine Total 500 ml # Bowel Movements 0 . Laboratory Tests Test 06/21/17 05:40 06/22/17 06:37 White Blood Count 11.1 TH/MM3 14.5 TH/MM3 Red Blood Count 4.05 MIL/MM3 4.01 MIL/MM3 Hemoglobin 12.2 GM/DL 11.9 GM/DL Hematocrit 35.9 % 36.0 % Mean Corpuscular Volume 88.7 FL 89.7 FL Mean Corpuscular Hemoglobin 30.0 PG 29.6 PG Mean Corpuscular Hemoglobin Concent 33.8 % 33.0 % Red Cell Distribution Width 14.0 % 14.5 % Platelet Count 226 TH/MM3 213 TH/MM3 Mean Platelet Volume 8.2 FL 8.0 FL Neutrophils (%) (Auto) 87.6 % 86.5 % Lymphocytes (%) (Auto) 7.3 % 6.9 % Monocytes (%) (Auto) 4.0 % 4.7 % Eosinophils (%) (Auto) 0.8 % 1.7 % Basophils (%) (Auto) 0.3 % 0.2 % Neutrophils # (Auto) 9.7 TH/MM3 12.6 TH/MM3 Lymphocytes # (Auto) 0.8 TH/MM3 1.0 TH/MM3 Monocytes # (Auto) 0.4 TH/MM3 0.7 TH/MM3 Eosinophils # (Auto) 0.1 TH/MM3 0.2 TH/MM3 Basophils # (Auto) 0.0 TH/MM3 0.0 TH/MM3 CBC Comment DIFF FINAL DIFF FINAL Differential Comment Laboratory Tests Test 06/21/17 05:40 06/21/17 12:59 06/22/17 06:37 Blood Urea Nitrogen 22 MG/DL 24 MG/DL Creatinine 0.52 MG/DL 0.59 MG/DL Random Glucose 131 MG/DL 153 MG/DL Calcium Level 8.3 MG/DL 8.5 MG/DL Phosphorus Level 2.0 MG/DL Magnesium Level 2.0 MG/DL Sodium Level 139 MEQ/L 137 MEQ/L Potassium Level 3.9 MEQ/L 4.5 MEQ/L Chloride Level 108 MEQ/L 106 MEQ/L Carbon Dioxide Level 23.8 MEQ/L 22.8 MEQ/L Anion Gap 7 MEQ/L 8 MEQ/L Estimat Glomerular Filtration Rate 162 ML/MIN 140 ML/MIN Ammonia 42 MCMOL/L Microbiology Date/Time Source Procedure Growth Status 06/21/17 13:30 Sputum Expectorated Sputum Gram Stain - Final Resulted 06/21/17 13:30 Sputum Culture - Preliminary Escherichia Coli Pseudomonas Aeruginosa Resulted Imaging Last Impressions Brain MRI 06/22/17 0000 Signed Impressions: Service Date/Time: Thursday, June 22, 2017 12:10 - CONCLUSION: All ischemic changes, negative for acute ischemic event. Negative for parenchymal hemorrhage. Usman Pimentel MD FACR Chest X-Ray 06/21/17 0000 Signed Impressions: Service Date/Time: Wednesday, June 21, 2017 16:21 - CONCLUSION: Negative for pneumothorax. Minimal improvement particularly left.. Usman Pimentel MD FACR Abdomen/Pelvis CT 06/14/17 0000 Signed Impressions: Service Date/Time: Wednesday, June 14, 2017 22:32 - CONCLUSION: 1. Increasing basilar lung consolidation since chest CT from June 04. 2. Mild ileus. No bowel obstruction, free air or free fluid. 3. Left hip replacement. Advanced osteoarthritis right hip. NG in stomach. Rectal tube present. Humphrey Weston MD Abdomen X-Ray 06/11/17 0000 Signed Impressions: Service Date/Time: Sunday, June 11, 2017 19:52 - CONCLUSION: 1. Mild gaseous distention of colon. NG tip in stomach. Rectal temperature probe present. Humphrey Weston MD Head CT 06/04/17 0000 Signed Impressions: Service Date/Time: Sunday, June 04, 2017 18:46 - CONCLUSION: 1. No significant change compared to 06/03/17. 2. No acute infarct, acute hemorrhage , mass effect or extra-axial fluid collection. 3. Scattered old lacunar infarcts within the bilateral basal ganglia. 4. Mild periventricular and subcortical white matter small vessel ischemic changes bilaterally. 5. Old right posterior parietal infarct. 6. Chronic opacification of right mastoid air cells. Mckay Stone MD Chest CT 06/04/17 0000 Signed Impressions: Service Date/Time: Sunday, June 04, 2017 18:49 - CONCLUSION: 1. Right mid lung field and posterior bibasilar patchiness consistent with probable areas of pneumonia and/or atelectasis. Clinical correlation is recommended. 2. Tiny bilateral pleural effusions. 3. Cardiomegaly and coronary artery calcifications. 4. Minimal scattered emphysematous changes bilaterally. Mckay Stone MD Physical Exam CONSTITUTIONAL/GENERAL: This is an adequately nourished patient, in no apparent distress. TUBES/LINES/DRAINS: SKIN: No jaundice, rashes, or lesions. Skin temperature appropriate. Not diaphoretic. EYES: Pupils equal and round and reactive. Extraocular motions intact. No scleral icterus. No injection or drainage. Fundi not examined. CARDIOVASCULAR: Regular rate and rhythm without murmurs, gallops, or rubs. No JVD. Peripheral pulses symmetric. RESPIRATORY/CHEST: Symmetric, unlabored respirations. Clear to auscultation. Breath sounds equal bilaterally. No wheezes, rales, or rhonchi. GASTROINTESTINAL: Abdomen soft, appears tender, grimacing on palpation, still somewhat distended. No hepato-splenomegaly, or palpable masses. No guarding. Bowel sounds present, hyperactive . GENITOURINARY: Without palpable bladder distension. condom catheter in place with clear yellow MUSCULOSKELETAL: Extremities without clubbing, cyanosis, or edema. No joint tenderness or effusion noted. No calf tenderness. No mottling or clubbing. NEUROLOGICAL: moves all 4 extremeties, awake, alert, obeys commands PSYCHIATRIC: unable to assess Assessment & Plan Remarks Assessment and Plan Mental status change, PNA, E.coli Acute VDRF, failure to wean Multiple med problems worsning leukocytosis source: worsening PNA also consicder intar abd UA nos cw infx Abdominal distention, diarrhea C.diff negative Persistent leukocytosis C glabrata funguria - no central lines,? source 2 D echo neg Persistent leukocytosis ? PNA (PSAE in spurtu) cont mycafungin, anticipate 14 days at least from [address] st neg clx repeat blood clx (persistent interemittent fever) fu repeat sputum clx add zosyn, high dose dw Dr Deborah marc RN Ml Wiseman MD Jun 22, 2017 20:31
[2017-06-22] MEDS: PIPERACIL-TAZO 4.5 GM PREMIX 100 ML IV SCH (20:49)
[2017-06-22] MEDS: TAMSULOSIN HCL 0.4 MG CAP PO SCH (20:49)
[2017-06-22] MEDS: ATORVASTATIN 40 MG TAB PO SCH (20:49)
[2017-06-22] MEDS: risperiDONE 1 MG TAB PO SCH (20:49)
[2017-06-22] MEDS: BENZTROPINE MESYLATE 1 MG TAB PO SCH (20:49)
[2017-06-22] MEDS: DONEPEZIL HCL 5 MG TAB PO SCH (21:18)
[2017-06-23] VITALS (22 sets, daily range): BP systolic 75–139; BP diastolic 48–86; PULSE 63–88; RESP 17–29; TEMP 98.1–99.4; O2SAT 88–100
[2017-06-23] MEDS: ACETAMINOPHEN 325 MG TAB PO PRN (02:33)
[2017-06-23] MEDS: CHLORHEXIDINE GLUCONATE 2 % 1 PACK (2 CLOTHS) TOP SCH ×2 (04:00→23:31)
[2017-06-23] MEDS ORDERED: ALBUMIN 5% INJ 500 ML IV ONE (04:00)
[2017-06-23] MEDS: INSULIN NovoLIN REGULAR SUPPLEMENTAL SCALE SQ SCH ×7 (04:00→23:30)
[2017-06-23] MEDS ORDERED: LEVOFLOXACIN 750 MG PREMIX INJ 150 ML IV SCH (04:00)
[2017-06-23] MEDS ORDERED: MAGNESIUM CITRATE SOLN 300 ML BTL PO ONE (04:15)
[2017-06-23] MEDS ORDERED: BISACODYL 10 MG SUPP RECTAL ONE (04:15)
[2017-06-23] MEDS: PIPERACIL-TAZO 4.5 GM PREMIX 100 ML IV SCH ×3 (04:19→17:16)
[2017-06-23] MEDS: RESP: ALBUTEROL 2.5 MG/IPRATROPIUM 0.5 MG NEB (PRN) NEB ×2 (04:20→20:13)
[2017-06-23] MEDS ORDERED: METHYLNALTREXONE BROMIDE 12 MG/0.6 ML VIAL SQ ONE (04:45)
[2017-06-23] MEDS: LACTATED RINGER'S 1000 ML INJ 1,000 ML IV SCH ×2 (04:53→23:32)
[2017-06-23] MEDS: cloNIDine HCL 0.3 MG TAB PO SCH (04:54)
[2017-06-23] MEDS ORDERED: FREE WATER G-TUBE SCH (06:00)
--- NOTE | 2017-06-23 06:16 | RADRPT ---
EXAM DATE/TIME: 06/23/2017 03:45 [facility] COMPARISON: CHEST SINGLE AP, June 21, 2017, 16:21. INDICATIONS : Extreme change in patient status, shortness of breath. MEDICAL HISTORY : Renal failure, chronic. Hypertension SURGICAL HISTORY : Left hip arthroplasty ENCOUNTER: Subsequent ACUITY: 2 weeks PAIN SCORE: Non-responsive. LOCATION: Bilateral chest FINDINGS: Tracheostomy is stable in good position. Consolidation at the left lung base and atelectasis in the r ight lung base are unchanged. Cardiac contours are stable. CONCLUSION: No significant interval change Arvind Hernandez MD on June 23, 2017 at 6:14 Board Certified Radiologist. This report was verified electronically.
--- NOTE | 2017-06-23 06:18 | RADRPT ---
EXAM DATE/TIME: 06/23/2017 03:51 [facility] COMPARISON: ABDOMEN KUB ONLY, June 11, 2017, 19:52. INDICATIONS : Extreme change in patient status, shortness of breath. MEDICAL HISTORY : Stroke. Hypertension Renal failure, chronic. SURGICAL HISTORY : Left hip arthroplasty ENCOUNTER: Subsequent ACUITY: 2 weeks PAIN SCORE: Non-responsive. LOCATION: Bilateral Abdomen FINDINGS: Gastrostomy tube is noted. Moderate gaseous distention of colon present throughout and mild gaseous d istention of small bowel. CONCLUSION: Diffuse mild gaseous distention of bowel Arvind Hernandez MD on June 23, 2017 at 6:15 Board Certified Radiologist. This report was verified electronically.
[2017-06-23 07:09] LABS: AUTOMATED NEUTROPHIL # 13.1 TH/MM3 (1.8-7.7); BASOPHIL % 0.3 % (0.0-2.0); EOSINOPHIL # 0.1 TH/MM3 (0-0.4); EOSINOPHIL % 0.4 % (0.0-4.0); HEMATOCRIT 33.8 % (39.0-51.0); HEMOGLOBIN 11.4 GM/DL (13.0-17.0); LYMPH % 3.8 % (9.0-44.0); LYMPHOCYTE # 0.5 TH/MM3 (1.0-4.8); MEAN CELL VOLUME 89.8 FL (80.0-100.0); MEAN CORPUSCULAR HEMOGLOBIN 30.2 PG (27.0-34.0); MEAN CORPUSCULAR HGB CONC 33.7 % (32.0-36.0); MEAN PLATELET VOLUME 8.4 FL (7.0-11.0); MONO % 3.2 % (0.0-8.0); MONOCYTE # 0.5 TH/MM3 (0-0.9); NEUT % 92.3 % (16.0-70.0); PLATELET COUNT 226 TH/MM3 (150-450); RED BLOOD COUNT 3.76 MIL/MM3 (4.50-5.90); RED CELL DISTRIBUTION WIDTH 14.4 % (11.6-17.2); WHITE BLOOD COUNT 14.2 TH/MM3 (4.0-11.0)
[2017-06-23 07:23] LABS: BICARBONATE 21.9 MEQ/L (21.0-32.0); CALCIUM 8.5 MG/DL (8.5-10.1); CREATININE 1.21 MG/DL (0.60-1.30)
--- NOTE | 2017-06-23 07:25 | HHI.CCPN ---
Subjective Remarks/Hospital Course 06/04: Mr. Reilly is a 61-year-old male with a history of COPD, hypertension, hyperlipidemia, CVA, schizoaffective disorder, bipolar disorder, GERD, renal failure, and arthritis who presented to the emergency room on 06/03/2017 from a custodial facility for evaluation of altered mental status. Upon review of the medical records from the custodial facility, it is noted he had a right lower lobe pneumonia diagnosed mid May. Head CT showed no acute infarct, acute hemorrhage, mass effect, or extra-axial fluid collection but scattered old lacunar infarcts within the bilateral basal ganglia. Mild periventricular and subcortical white matter small vessel ischemic changes bilaterally. Chest x-ray shows scattered bibasilar patchiness consistent with possible pneumonia. Per documentation : While in the ER, patient was in moderate respiratory distress with tachypnea and utilization of accessory abdominal muscles to breathe. His lung sounds are bilaterally congested and he is confused and a poor historian. His speech is slightly slurred but this is not a new finding. He was noted to be on 5 L nasal cannula with oxygen saturation of 94% in the emergency room. Patient was admitted to the ICU by the hospitalist service. He was initiated on heparin drip for suspicion of PE. He was also noted to have an elevated CPK and creatinine. His blood pressures were running high overnight. This afternoon patient developed worsening agitation and disorientation and confusion. His heparin was stopped earlier by Dr. Garcia due to low suspicion for PE. Patient developed worsening respiration status with respirations in the 30s and O2 sats in the mid 80s. Critical care medicine was consulted. Patient was emergently intubated by Dr. Elvira Gutierrez and I subsequently took over patient care. When I evaluated the patient he had been sedated for the intubation and is being placed on mechanical ventilation. History was obtained by discussion with Dr. Garcia, Dr. Gutierrez and ICU nursing staff as well as documentation in the chart. 06/05: Remains sedated, orally intubated on mechanical ventilation. 06/06: Sedated, orally intubated on mechanical ventilation. Failed C Pap trial today. Got extremely anxious on lightening sedation. 06/07 No events overnight. Sedated and intubated. Afebrile. 06/08 No events overnight. Sedated with Diprivan, Fentanyl and intubated. 06/09 Patient remains sedated and intubated. Afebrile.Did not tolerate CPAP trials yesterday. 06/10 Patient is sedated with Fentanyl and Diprivan. Afebrile. Did not tolerate CPAP yesterday as he became restless, agitated and tachycardic. 06/11 Patient remains sedated and intubated. Spiked fever with Tmax 101.1 06/12 No events overnight. Sedated and intubated. Afebrile. 06/13 Patient remains intubated and sedated with Diprivan, fentanyl in addition he is on Precedex drip. T:100.0 06/14 Patient remains sedated and intubated. Afebrile. Did not tolerate CPAP trials yesterday as he became tahypenic, tachycardic and restless. 06/15: agitation persists. respiratory failure persists. severely volume overloaded. has been intubated for almost 2 weeks. may require trach. CT abd/ pelvis without overt acute disease. no other source for fungemia. 06/16: s/p trach yesterday. no significant changes. 06/17: plan for PEG today. agitation persists with significant delirium. no other significant changes. 06/18: s/p PEG placement. weaning off sedation. still failing cpap trials. 06/19: cannot wean off precedex: agitated delirium persists. also still failing cpap trials. 06/20 No events overnight. On Precedex drip for agitation. T: 100.1 last night. 06/21 No events overnight. Remains on Precedex drip. Afebrile. 06/22 Patient is sedated with Fentanyl and Precedex. Afebrile. For MRI brain today. 06/23 Patient became hypotensive overnight and had episode of desaturation with says in mid 80's. Given 500ml 5% Albumin now off sedation ( Fentanyl and Precedex held). BP is better. In addition he was given Dulcolax suppos. and Mg citrate now having BM's. KUB this morning showed diffuse mild gaseous distention of bowel. FIO2 requirements is better now on 50% FIO2 with PEEP: 10 from FIO2 75 % overnight. CXR unchanged ( Consolidation LLL and Atelectasis right lung base) . T:99.9 Objective Vital Signs Date Time Temp Pulse Resp B/P (MAP) Pulse Ox O2 Delivery O2 Flow Rate FiO2 06/23/17 04:20 96 100 06/23/17 04:00 80 06/23/17 02:00 27 75/48 (57) 06/23/17 00:00 99.4 Intake and Output 06/23/17 06/23/17 06/24/17 08:00 16:00 00:00 Intake Total 600 ml Balance 600 ml Result Diagram: 06/22/17 0637 06/22/17 0637 Other Results Laboratory Tests Test 06/23/17 03:35 06/23/17 05:10 Blood Gas Puncture Site RT RADIAL Blood Gas Patient Temperature 98.6 Blood Gas HCO3 21 mmol/L Blood Gas Base Excess -3.1 mmol/L Blood Gas Oxygen Saturation 93 % Arterial Blood pH 7.39 Arterial Blood Partial Pressure CO2 36 mmHg Arterial Blood Partial Pressure O2 75 mmHg Arterial Blood Oxygen Content 15.9 Vol % Arterial Blood Carboxyhemoglobin 0.8 % Arterial Blood Methemoglobin 1.3 % Blood Gas Hemoglobin 12.2 G/DL Oxygen Delivery Device VENTILATOR Blood Gas Ventilator Setting 16/550/1.0/+10 Blood Gas Inspired Oxygen 100 % White Blood Count 14.2 TH/MM3 Red Blood Count 3.76 MIL/MM3 Hemoglobin 11.4 GM/DL Hematocrit 33.8 % Mean Corpuscular Volume 89.8 FL Mean Corpuscular Hemoglobin 30.2 PG Mean Corpuscular Hemoglobin Concent 33.7 % Red Cell Distribution Width 14.4 % Platelet Count 226 TH/MM3 Mean Platelet Volume 8.4 FL Neutrophils (%) (Auto) 92.3 % Lymphocytes (%) (Auto) 3.8 % Monocytes (%) (Auto) 3.2 % Eosinophils (%) (Auto) 0.4 % Basophils (%) (Auto) 0.3 % Neutrophils # (Auto) 13.1 TH/MM3 Lymphocytes # (Auto) 0.5 TH/MM3 Monocytes # (Auto) 0.5 TH/MM3 Eosinophils # (Auto) 0.1 TH/MM3 Basophils # (Auto) 0.0 TH/MM3 CBC Comment DIFF FINAL Differential Comment Imaging Last Impressions Chest X-Ray 06/23/17 0000 Signed Impressions: Service Date/Time: Friday, June 23, 2017 03:45 - CONCLUSION: No significant interval change Arvind Hernandez MD Abdomen X-Ray 06/23/17 0000 Signed Impressions: Service Date/Time: Friday, June 23, 2017 03:51 - CONCLUSION: Diffuse mild gaseous distention of bowel Arvind Hernandez MD Brain MRI 06/22/17 0000 Signed Impressions: Service Date/Time: Thursday, June 22, 2017 12:10 - CONCLUSION: All ischemic changes, negative for acute ischemic event. Negative for parenchymal hemorrhage. Usman Pimentel MD FACR Abdomen/Pelvis CT 06/14/17 0000 Signed Impressions: Service Date/Time: Wednesday, June 14, 2017 22:32 - CONCLUSION: 1. Increasing basilar lung consolidation since chest CT from June 04. 2. Mild ileus. No bowel obstruction, free air or free fluid. 3. Left hip replacement. Advanced osteoarthritis right hip. NG in stomach. Rectal tube present. Humphrey Weston MD Head CT 06/04/17 0000 Signed Impressions: Service Date/Time: Sunday, June 04, 2017 18:46 - CONCLUSION: 1. No significant change compared to 06/03/17. 2. No acute infarct, acute hemorrhage , mass effect or extra-axial fluid collection. 3. Scattered old lacunar infarcts within the bilateral basal ganglia. 4. Mild periventricular and subcortical white matter small vessel ischemic changes bilaterally. 5. Old right posterior parietal infarct. 6. Chronic opacification of right mastoid air cells. Mckay Stone MD Chest CT 06/04/17 0000 Signed Impressions: Service Date/Time: Sunday, June 04, 2017 18:49 - CONCLUSION: 1. Right mid lung field and posterior bibasilar patchiness consistent with probable areas of pneumonia and/or atelectasis. Clinical correlation is recommended. 2. Tiny bilateral pleural effusions. 3. Cardiomegaly and coronary artery calcifications. 4. Minimal scattered emphysematous changes bilaterally. Mckay Stone MD Objective Remarks GENERAL: Patient is 61 yo on ventilator via trach. SKIN: Warm and dry. HEAD: Normocephalic. EYES: No scleral icterus. No injection or drainage. NECK: Supple, trachea midline. No JVD or lymphadenopathy. + Trach CARDIOVASCULAR: Regular rate and rhythm without murmurs, gallops, or rubs. RESPIRATORY: Breath sounds equal bilaterally.Coarse BS GASTROINTESTINAL: Abdomen soft, non-tender, nondistended. MUSCULOSKELETAL: No cyanosis, or edema. Neuro: Off sedation, follows simple commands intermittently. A/P Assessment and Plan Assessment: 61yM with history of schizoaffective d/o and bipolar d/o who presented with acute hypoxic respiratory failure and now fungemia without overt source. Not improving on pathway. No meaningful improvements over last 2 weeks. s/p trach 06/15 and PEG 06/17. remains off pathway. needs long-term acute care level of rehabilitation. agitation still the biggest barrier to successful weaning. Plan: Neuro: Acute Metabolic Encephalopathy Agitated Delirium - persistent. Schizoaffective disorder/bipolar disorder History of alcohol abuse History of CVA Fentanyl and Precedex currently on hold. Monitor neuro status MRI brain 06/22: No acute ischemic events, no hemorrhage On Lactulose level 30ml TID, Ammonia level slightly elevated 42. EEG showed mod. encephalopathy Neuro is following. Dr. Wayne Cheatham 10mg IM q12h prn for agitation continue Aricept and Cogentin clonidine to 0.3mg po q8h guanfacine 2mg po q12h CV: Uncontrolled hypertension - improving. hyperlipidemia Monitor HR and BP keep MAP>65mmHg Hold antihypertensive meds ( Norvasc 5mg daily, clonidine 0.3mg po q8h, Lopressor 50mg Q12) 2-D echo with normal LV/RV function Pulmo: Acute respiratory failure requiring mechanical ventilation - persistent. COPD exacerbation Resolving community acquired pneumonia Intubated and placed on mechanical ventilation on 06/04. Continue with vent support keep sat >92%. Vent bundle, bronchodilators, on prednisone taper. On PRVC RR 16, TV 500, IT:0.75, PEEP:10, FIO2 down 50%. Decrease FIO2 as cordell. Check ABG Will proceed with CTA chest for further eval pulm parenchyma, doubt PE. trach 06/[address] Sapp/[facility] GI/liver: GERD Acute protein calorie malnutrition- severe Hold tube feeds for now-Glucerna 1.5@60ml/hr 06/23 KUB abdomen: Mild gaseous distention of bowel Will repeat CT abd/pelvis Ct abd/pelvis 06/14: no bowel obstruction, free air or fluid C. Diff negative Continue with bowel regimen- On Lactulose 30ml TID, Senna daily. Given Mag citrate and Dulcolax overnight- having BM's this morning. Renal/: ROSENDO/ CKD - resolved. Rhabdomyolysis - resolved. Acute intravascular volume overload- resolved. Metabolic alkalosis- resolving. Monitor renal function, electrolytes replacement per protocol. on LR@84ml/hr ID: Fungemia Community Acquired Pneumonia- resolved. continue abx per ID- on micafungin: plan for 14 days after 1st negative blood culture. Continue Zosyn, Levaquin ID is following Sputum cx: E.coli on 06/04, sputum 06/10: normal resp tamara BC 06/14, 06/19 : NGTD, Sputum cx 06/21: E.coli, Pseudomonas Endocrine: Hyperglycemia of critical illness SSI medium scale, q4h Heme: Anemia secondary to chronic disease Monitor CBC. Prophylaxis: Pepcid/SCDs. SQ Lovenox Lines: PIV Level 3 Katina Marcos MD Jun 23, 2017 07:25
[2017-06-23] MEDS ORDERED: DEXTROSE 50% IN WATER 50 ML VIAL(D50) IV PUSH PRN (07:30)
[2017-06-23] MEDS ORDERED: GLUCAGON 1 MG/ML VIAL OTHER PRN (07:30)
[2017-06-23] MEDS: CHLORHEXIDINE 0.12% (ORAL KIT) 15 ML CUP MT SCH ×2 (08:00→20:00)
[2017-06-23] MEDS: NUTRISOURCE FIBER POWDER 1 PACK G-TUBE SCH ×2 (09:00→21:00)
[2017-06-23] MEDS: LACTULOSE SYRUP 20 GM/30 ML CUP PO SCH ×3 (09:57→18:00)
[2017-06-23] MEDS: FAMOTIDINE 20 MG TAB PO SCH ×2 (09:58→21:00)
[2017-06-23] MEDS: SENNOSIDES SYRUP 8.8 MG/5 ML CUP PO SCH (09:58)
[2017-06-23] MEDS: predniSONE 5 MG/5 ML CUP PO SCH (09:58)
[2017-06-23] MEDS: guanFACINE HCL 1 MG TAB PO SCH ×2 (09:59→21:00)
[2017-06-23] MEDS: VENLAFAXINE HCL XR 75 MG CAP PO SCH (09:59)
[2017-06-23] MEDS: SODIUM CHLORIDE 0.9% FLUSH 10 ML FLUSH IV FLUSH SCH ×2 (09:59→21:00)
[2017-06-23] MEDS ORDERED: DIATRIZOATE MEGLUM/DIATRIZOATE SOD 9 ML CUP PO ONE (15:15)
--- NOTE | 2017-06-23 16:00 | HHI.PR ---
Subjective Remarks 61 YOWM with VDRF,Trach,COPD did't tolerate CPAP Sedated with Fentanyl and Precedex No Fever Awake follows commands Vomitted X2 Objective Vital Signs Vital Signs Date Time Temp Pulse Resp B/P (MAP) Pulse Ox O2 Delivery O2 Flow Rate FiO2 06/23/17 11:15 91 45 06/23/17 11:00 79 20 103/65 (78) 92 06/23/17 10:00 69 17 139/78 (98) 95 06/23/17 09:03 92 55 06/23/17 09:00 68 23 107/69 (82) 93 06/23/17 08:00 98.4 76 29 93 06/23/17 07:00 63 27 106/62 (77) 93 06/23/17 04:20 96 100 06/23/17 04:00 100 06/23/17 04:00 80 06/23/17 02:00 69 27 75/48 (57) 88 06/23/17 02:00 68 06/23/17 01:52 90 40 06/23/17 01:00 75 27 84/52 (63) 90 06/23/17 00:00 99.4 66 24 101/86 (91) 95 06/23/17 00:00 73 06/23/17 00:00 40 06/22/17 23:00 64 23 95 06/22/17 22:00 70 23 152/65 (94) 95 06/22/17 21:00 60 18 131/72 (91) 06/22/17 20:17 100 40 06/22/17 20:00 40 06/22/17 20:00 59 06/22/17 20:00 99.7 59 22 132/71 (91) 100 06/22/17 18:00 55 06/22/17 16:00 51 06/22/17 16:00 99.7 51 16 121/64 (83) 99 06/22/17 16:00 50 I/O 06/22/17 06/22/17 06/22/17 06/23/17 06/23/17 06/23/17 07:00 15:00 23:00 07:00 15:00 23:00 Intake Total 945 ml 77 ml 1318 ml 2290 ml Output Total 525 ml 500 ml 450 ml Balance 420 ml 77 ml 818 ml 1840 ml IV Total 77 ml 380 ml 1147 ml Tube Feeding 695 ml 508 ml 593 ml Tube Irrigant 180 ml Other 250 ml 250 ml 550 ml Output Urine Total 525 ml 500 ml 450 ml # Bowel Movements 0 0 1 Result Diagram: 06/23/1750906/23/17509 Objective Remarks GENERAL: MBMN WM, on Vent, sedated SKIN: Warm and dry. HEAD: Normocephalic. EYES: No scleral icterus. No injection or drainage. NECK: Supple, trachea midline. No JVD or lymphadenopathy. CARDIOVASCULAR: Regular rate and rhythm without murmurs, gallops, or rubs. RESPIRATORY: Breath sounds equal bilaterally. No accessory muscle use. GASTROINTESTINAL: Abdomen soft, non-tender, nondistended. MUSCULOSKELETAL: No cyanosis, or edema. BACK: Nontender without obvious deformity. No CVA tenderness. A/P Assessment and Plan VDRF S/P Trach COPD COPD Schzoaffective disorder Bipolar disorder PLAN: Vent Support Cont Abx Sputum culture Sedation with Fentanyl and Precedex DW Syed Gudino MD Jun 23, 2017 15:59
[2017-06-23] MEDS: MICAFUNGIN INJ 150 MG in SODIUM CHLORIDE 0.9% INJ 100 ML IV SCH (17:16)
--- NOTE | 2017-06-23 17:52 | HHI.IDPN ---
Subjective Subjective Remarks mi;ld low grade fever developped multiple episodes of emesis today tube feeds are now off no diarrea KUB this am showed diffuse bowel distention Antibiotics mycafungin Allergies: Coded Allergies: hydrochlorothiazide (Unverified Allergy, Intermediate, EFFECTS HIS SODIUM LEVEL, 02/12/17) PT STATES HE IS NOT ALLERGIC codeine (Unverified Adverse Reaction, Severe, 02/12/17) PT STATES HE IS NOT ALLERGIC Objective . Vital Signs Date Time Temp Pulse Resp B/P (MAP) Pulse Ox O2 Delivery O2 Flow Rate FiO2 06/23/17 16:01 93 50 06/23/17 11:15 91 45 06/23/17 11:00 79 20 103/65 (78) 92 06/23/17 10:00 69 17 139/78 (98) 95 06/23/17 09:03 92 55 06/23/17 09:00 68 23 107/69 (82) 93 06/23/17 08:00 98.4 76 29 93 06/23/17 07:00 63 27 106/62 (77) 93 06/23/17 04:20 96 100 06/23/17 04:00 100 06/23/17 04:00 80 06/23/17 02:00 69 27 75/48 (57) 88 06/23/17 02:00 68 06/23/17 01:52 90 40 06/23/17 01:00 75 27 84/52 (63) 90 06/23/17 00:00 99.4 66 24 101/86 (91) 95 06/23/17 00:00 73 06/23/17 00:00 40 06/22/17 23:00 64 23 95 06/22/17 22:00 70 23 152/65 (94) 95 06/22/17 21:00 60 18 131/72 (91) 06/22/17 20:17 100 40 06/22/17 20:00 40 06/22/17 20:00 59 06/22/17 20:00 99.7 59 22 132/71 (91) 100 06/22/17 18:00 55 . Laboratory Tests Test 06/22/17 06:37 06/23/17 05:10 White Blood Count 14.5 TH/MM3 14.2 TH/MM3 Red Blood Count 4.01 MIL/MM3 3.76 MIL/MM3 Hemoglobin 11.9 GM/DL 11.4 GM/DL Hematocrit 36.0 % 33.8 % Mean Corpuscular Volume 89.7 FL 89.8 FL Mean Corpuscular Hemoglobin 29.6 PG 30.2 PG Mean Corpuscular Hemoglobin Concent 33.0 % 33.7 % Red Cell Distribution Width 14.5 % 14.4 % Platelet Count 213 TH/MM3 226 TH/MM3 Mean Platelet Volume 8.0 FL 8.4 FL Neutrophils (%) (Auto) 86.5 % 92.3 % Lymphocytes (%) (Auto) 6.9 % 3.8 % Monocytes (%) (Auto) 4.7 % 3.2 % Eosinophils (%) (Auto) 1.7 % 0.4 % Basophils (%) (Auto) 0.2 % 0.3 % Neutrophils # (Auto) 12.6 TH/MM3 13.1 TH/MM3 Lymphocytes # (Auto) 1.0 TH/MM3 0.5 TH/MM3 Monocytes # (Auto) 0.7 TH/MM3 0.5 TH/MM3 Eosinophils # (Auto) 0.2 TH/MM3 0.1 TH/MM3 Basophils # (Auto) 0.0 TH/MM3 0.0 TH/MM3 CBC Comment DIFF FINAL DIFF FINAL Differential Comment Laboratory Tests Test 06/22/17 06:37 06/23/17 05:10 Blood Urea Nitrogen 24 MG/DL 33 MG/DL Creatinine 0.59 MG/DL 1.21 MG/DL Random Glucose 153 MG/DL 173 MG/DL Calcium Level 8.5 MG/DL 8.5 MG/DL Sodium Level 137 MEQ/L 136 MEQ/L Potassium Level 4.5 MEQ/L 4.6 MEQ/L Chloride Level 106 MEQ/L 105 MEQ/L Carbon Dioxide Level 22.8 MEQ/L 21.9 MEQ/L Anion Gap 8 MEQ/L 9 MEQ/L Estimat Glomerular Filtration Rate 140 ML/MIN 61 ML/MIN Microbiology Date/Time Source Procedure Growth Status 06/21/17 13:30 Sputum Expectorated Sputum Gram Stain - Final Complete 06/21/17 13:30 Sputum Culture - Final Escherichia Coli Pseudomonas Aeruginosa Complete Imaging Last Impressions Chest X-Ray 06/23/17 0000 Signed Impressions: Service Date/Time: Friday, June 23, 2017 03:45 - CONCLUSION: No significant interval change Arvind Hernandez MD Abdomen X-Ray 06/23/17 0000 Signed Impressions: Service Date/Time: Friday, June 23, 2017 03:51 - CONCLUSION: Diffuse mild gaseous distention of bowel Arvind Hernandez MD Brain MRI 06/22/17 0000 Signed Impressions: Service Date/Time: Thursday, June 22, 2017 12:10 - CONCLUSION: All ischemic changes, negative for acute ischemic event. Negative for parenchymal hemorrhage. Usman Pimentel MD FACR Abdomen/Pelvis CT 06/14/17 0000 Signed Impressions: Service Date/Time: Wednesday, June 14, 2017 22:32 - CONCLUSION: 1. Increasing basilar lung consolidation since chest CT from June 04. 2. Mild ileus. No bowel obstruction, free air or free fluid. 3. Left hip replacement. Advanced osteoarthritis right hip. NG in stomach. Rectal tube present. Humphrey Weston MD Head CT 06/04/17 0000 Signed Impressions: Service Date/Time: Sunday, June 04, 2017 18:46 - CONCLUSION: 1. No significant change compared to 06/03/17. 2. No acute infarct, acute hemorrhage , mass effect or extra-axial fluid collection. 3. Scattered old lacunar infarcts within the bilateral basal ganglia. 4. Mild periventricular and subcortical white matter small vessel ischemic changes bilaterally. 5. Old right posterior parietal infarct. 6. Chronic opacification of right mastoid air cells. Mckay Stone MD Chest CT 06/04/17 0000 Signed Impressions: Service Date/Time: Sunday, June 04, 2017 18:49 - CONCLUSION: 1. Right mid lung field and posterior bibasilar patchiness consistent with probable areas of pneumonia and/or atelectasis. Clinical correlation is recommended. 2. Tiny bilateral pleural effusions. 3. Cardiomegaly and coronary artery calcifications. 4. Minimal scattered emphysematous changes bilaterally. Mckay Stone MD Physical Exam CONSTITUTIONAL/GENERAL: This is an adequately nourished patient, in no apparent distress. TUBES/LINES/DRAINS: SKIN: No jaundice, rashes, or lesions. Skin temperature appropriate. Not diaphoretic. EYES: Pupils equal and round and reactive. Extraocular motions intact. No scleral icterus. No injection or drainage. Fundi not examined. NECK: trach iin place CARDIOVASCULAR: Regular rate and rhythm without murmurs, gallops, or rubs. No JVD. Peripheral pulses symmetric. RESPIRATORY/CHEST: Symmetric, unlabored respirations. Clear to auscultation. Breath sounds equal bilaterally. No wheezes, rales, or rhonchi. GASTROINTESTINAL: Abdomen somewaht tense, appears very tender, grimacing on palpation, markedly distended, tympanic to palpation . No hepato-splenomegaly, or palpable masses. No guarding. Bowel sounds present , hyperactive . GENITOURINARY: Without palpable bladder distension. condom catheter in place with clear yellow MUSCULOSKELETAL: Extremities without clubbing, cyanosis, or edema. No joint tenderness or effusion noted. No calf tenderness. No mottling or clubbing. NEUROLOGICAL: moves all 4 extremeties, awake, alert, obeys commands PSYCHIATRIC: unable to assess Assessment & Plan Remarks Assessment and Plan Mental status change, PNA, E.coli Acute VDRF, failure to wean Multiple med problems worsning leukocytosis source: worsening PNA also consicder intar abd UA nos cw infx Abdominal distention, diarrhea C.diff negative Persistent leukocytosis C glabrata funguria - no central lines,? source 2 D echo neg Persistent leukocytosis New issue PNA (PSAE in spurtu) New issue: Ileus less likely obstruction - new issue - vomiting, distension cont mycafungin, anticipate 14 days at least from 1 st neg clx repeat blood clx (persistent interemittent fever) fu CT A/P results change zosyn to cefepime dc levaquine Ml Duran Dr, RN, MD Jun 23, 2017 17:52
[2017-06-23] MEDS ORDERED: IOHEXOL 350 MG/ML 10 ML VIAL (for RAD DIAG) IVCONTRAST ONE (20:46)
[2017-06-23] MEDS: TAMSULOSIN HCL 0.4 MG CAP PO SCH (21:00)
[2017-06-23] MEDS: BENZTROPINE MESYLATE 1 MG TAB PO SCH (21:00)
[2017-06-23] MEDS: risperiDONE 1 MG TAB PO SCH (21:00)
[2017-06-23] MEDS: DONEPEZIL HCL 5 MG TAB PO SCH (21:00)
[2017-06-23] MEDS: ATORVASTATIN 40 MG TAB PO SCH (21:00)
--- NOTE | 2017-06-23 21:43 | RADRPT ---
EXAM DATE/TIME: 06/23/2017 20:34 [facility] COMPARISON: CT THORAX W/O CONTRAST, June 04, 2017, 18:49. INDICATIONS : Dyspnea; rule out pulmonary embolus. IV CONTRAST: 99 cc Omnipaque 350 (iohexol) IV ; Cumulative dose for multiple exams. RADIATION DOSE: 14.59 CTDIvol (mGy) MEDICAL HISTORY : Cardiovascular disease. Hypertension. Cirrhosis.Hep C, CVA SURGICAL HISTORY : None. ENCOUNTER: Subsequent ACUITY: 3 weeks PAIN SCALE: Non-responsive LOCATION: chest TECHNIQUE: Volumetric scanning of the chest was performed using a pulmonary embolism protocol MIP images were re constructed. Using automated exposure control and adjustment of the mA and/or kV according to patien t size, radiation dose was kept as low as reasonably achievable to obtain optimal diagnostic quality images. DICOM format image data is available electronically for review and comparison. Follow-up recommendations for detected pulmonary nodules are based at a minimum on nodule size and pa tient risk factors according to Fleischner Society Guidelines. FINDINGS: PULMONARY ARTERIES: No filling defects are seen in the pulmonary arteries through the segmental level. LUNGS: Increased confluent parenchymal opacity in the dependent portions of the lower lobes bilaterally effie cating consolidation. There is new cavitary consolidation of the right upper lobe that has a triangul ar configuration patchy consolidation of the right middle lobe is again seen. Bilateral mild to moder ate pulmonary parenchymal emphysema is present with upper lobe predominance. New patchy left upper lo be parenchymal opacity. 5 mm nodular density seen in the anterior left upper lobe on image #56. PLEURAE: No evidence of pleural effusion or pneumothorax. MEDIASTINUM: Coronary artery calcifications. Aorta within normal limits. No enlarged lymph nodes. Tracheostomy tub e in place. MUSCULOSKELETAL: Within normal limits for patient age. MISCELLANEOUS: The visualized upper abdominal organs demonstrate no acute abnormality. CONCLUSION: 1. No evidence of pulmonary embolus. 2. Increased patchy bilateral pulmonary consolidation with mild thin-walled cavitation of focal conso lidation in the right upper lobe. This finding could be related consolidation of an area of long with emphysema involvement. 3. Mild to moderate upper lobe pulmonary parenchymal emphysema is seen. Rosas Rowell MD on June 23, 2017 at 21:35 Board Certified Radiologist. This report was verified electronically.
--- NOTE | 2017-06-23 21:49 | RADRPT ---
EXAM DATE/TIME: 06/23/2017 20:34 [facility] COMPARISON: CT ABDOMEN & PELVIS W CONTRAST, June 14, 2017, 22:32. INDICATIONS : Abdominal distention; possible ileus. IV CONTRAST: 99 cc Omnipaque 350 (iohexol) IV ; Cumulative dose for multiple exams. ORAL CONTRAST: Prescribed oral contrast ingested. RADIATION DOSE: 17.91 CTDIvol (mGy) MEDICAL HISTORY : Cardiovascular disease. Cirrhosis. Hypertension.Hep C SURGICAL HISTORY : None. ENCOUNTER: Subsequent ACUITY: 3 weeks PAIN SCALE: Non-responsive LOCATION: abdomen TECHNIQUE: Volumetric scanning of the abdomen and pelvis was performed. Using automated exposure control and ad justment of the mA and/or kV according to patient size, radiation dose was kept as low as reasonably achievable to obtain optimal diagnostic quality images. DICOM format image data is available electro nically for review and comparison. FINDINGS: LOWER LUNGS: Persistent bilateral lower lobe pulmonary consolidation. LIVER: Homogeneous density without lesion. There is no dilation of the biliary tree. No calcified gallston es. SPLEEN: Normal size without lesion. PANCREAS: Within normal limits. KIDNEYS: Normal in size and shape. There is no mass, stone or hydronephrosis. ADRENAL GLANDS: Within normal limits. VASCULAR: Diffuse aortic calcification. Aortic diameter are within normal limits. BOWEL/MESENTERY: Diffuse abnormality of the cecum. There is hazy opacity in the surrounding fat as well as prominent a mount of gas within the cecal wall (pneumatosis). No portal venous gas identified. No evidence of bow el dilatation. Small amount of free fluid in the pelvis. No free air identified. Appendix not identif ied. ABDOMINAL WALL: Within normal limits. RETROPERITONEUM: There is no lymphadenopathy. BLADDER: No wall thickening or mass. REPRODUCTIVE: Within normal limits. INGUINAL: There is no lymphadenopathy or hernia. MUSCULOSKELETAL: Left hip prosthesis. Severe right hip osteoarthritic findings. CONCLUSION: 1. Bowel wall pneumatosis involving the cecum and proximal transverse colon. Findings are suspicious for ischemic colitis. Surrounding inflammatory change in the intra-abdominal fat. No portal venous ga s or free air identified. 2. Prominent bilateral lower lobe pulmonary consolidation. Rosas Rowell MD on June 23, 2017 at 21:42 Board Certified Radiologist. This report was verified electronically.
[2017-06-23] MEDS: FAMOTIDINE 20 MG/2 ML VIAL IV PUSH SCH (23:28)
[2017-06-23] MEDS: DEXMEDETOMIDINE INJ 1,000 MCG in SODIUM CHLOR 0.9% 250 ML INJ 240 ML IV PRN (23:28)
[2017-06-23] MEDS: CEFEPIME INJ 2,000 MG in SODIUM CHLORIDE 0.9% INJ 100 ML IV SCH (23:35)
[2017-06-24] VITALS (55 sets, daily range): BP systolic 99–149; BP diastolic 63–83; PULSE 59–83; RESP 17–47; TEMP 98.4–100.7; O2SAT 90–100
[2017-06-24] MEDS: INSULIN NovoLIN REGULAR SUPPLEMENTAL SCALE SQ SCH ×6 (03:30→23:30)
[2017-06-24] MEDS: CEFEPIME INJ 2,000 MG in SODIUM CHLORIDE 0.9% INJ 100 ML IV SCH ×2 (04:03→09:58)
--- NOTE | 2017-06-24 04:52 | RADRPT ---
EXAM DATE/TIME: 06/24/2017 03:08 [facility] COMPARISON: CHEST SINGLE AP, June 23, 2017, 3:45. INDICATIONS : Shortness of breath, possible pulmonary disease. MEDICAL HISTORY : Renal failure, chronic. Hypertension SURGICAL HISTORY : Left hip arthroplasty ENCOUNTER: Subsequent ACUITY: 2 weeks PAIN SCORE: Non-responsive. LOCATION: Bilateral chest FINDINGS: Tracheostomy tube is present in satisfactory position. Slight to moderate bibasilar atelectasis and/o r infiltrate is seen worse on the right. The rest of the examination has not significantly changed. CONCLUSION: Bibasilar atelectasis and/or infiltrate is seen. Domingo Pollack MD on June 24, 2017 at 4:50 Board Certified Radiologist. This report was verified electronically.
--- NOTE | 2017-06-24 04:55 | RADRPT ---
EXAM DATE/TIME: 06/24/2017 03:14 [facility] COMPARISON: ABDOMEN KUB ONLY, June 23, 2017, 3:51. CT ABDOMEN & PELVIS W CONTRAST, June 23, 2017, 20:34. INDICATIONS : Abdominal pain. MEDICAL HISTORY : Stroke. Hypertension Renal failure, chronic. SURGICAL HISTORY : Left hip arthroplasty ENCOUNTER: Subsequent ACUITY: 2 weeks PAIN SCORE: Non-responsive. LOCATION: Bilateral Abdomen FINDINGS: The bowel gas is nonspecific. There are no signs of obstruction or free air for technique. No defini te calcified stones are identified for technique. There is extensive osteoarthritis in the right hip joint with loss of the articular cartilage completely and flattening of the femoral head. There is a G-tube in place and there is contrast in the patient's stomach. The transverse colon is dilated and m easures 7.2 cm in size. CONCLUSION: Dilated transverse colon and no definite pneumatosis intestinalis or technique, however t he patient's prior CT examination was suggestive of pneumatosis. Domingo Pollack MD on June 24, 2017 at 4:51 Board Certified Radiologist. This report was verified electronically.
[2017-06-24 06:42] LABS: AUTOMATED NEUTROPHIL # 7.9 TH/MM3 (1.8-7.7); BASOPHIL % 0.1 % (0.0-2.0); EOSINOPHIL # 0.1 TH/MM3 (0-0.4); EOSINOPHIL % 0.7 % (0.0-4.0); HEMATOCRIT 33.4 % (39.0-51.0); HEMOGLOBIN 11.1 GM/DL (13.0-17.0); LYMPH % 5.8 % (9.0-44.0); LYMPHOCYTE # 0.5 TH/MM3 (1.0-4.8); MEAN CELL VOLUME 89.1 FL (80.0-100.0); MEAN CORPUSCULAR HEMOGLOBIN 29.5 PG (27.0-34.0); MEAN CORPUSCULAR HGB CONC 33.1 % (32.0-36.0); MEAN PLATELET VOLUME 7.7 FL (7.0-11.0); MONO % 2.7 % (0.0-8.0); MONOCYTE # 0.2 TH/MM3 (0-0.9); NEUT % 90.7 % (16.0-70.0); PLATELET COUNT 185 TH/MM3 (150-450); RED BLOOD COUNT 3.75 MIL/MM3 (4.50-5.90); RED CELL DISTRIBUTION WIDTH 14.3 % (11.6-17.2); WHITE BLOOD COUNT 8.7 TH/MM3 (4.0-11.0)
[2017-06-24 07:03] LABS: ALBUMIN 2.1 GM/DL (3.4-5.0); AST (GOT) 14 U/L (15-37); BICARBONATE 25.4 MEQ/L (21.0-32.0); BLOOD UREA NITROGEN 25 MG/DL (7-18); CALCIUM 8.2 MG/DL (8.5-10.1); CHLORIDE 104 MEQ/L (98-107); CREATININE 0.71 MG/DL (0.60-1.30); GLOMERULAR FILTRATION RATE 113 ML/MIN (>89); GLUCOSE,RANDOM 123 MG/DL (74-106); MAGNESIUM 2.2 MG/DL (1.5-2.5); SODIUM (NA) 138 MEQ/L (136-145)
[2017-06-24 07:07] LABS: ALKALINE PHOSPHATASE 73 U/L (45-117); ALT (GPT) 27 U/L (12-78); PHOSPHORUS 2.3 MG/DL (2.5-4.9); TOTAL BILIRUBIN ADULT 0.9 MG/DL (0.2-1.0); TOTAL PROTEIN 5.8 GM/DL (6.4-8.2)
[2017-06-24] MEDS: NUTRISOURCE FIBER POWDER 1 PACK G-TUBE SCH ×2 (09:00→21:00)
[2017-06-24] MEDS: SENNOSIDES SYRUP 8.8 MG/5 ML CUP PO SCH (09:00)
[2017-06-24] MEDS: SODIUM CHLORIDE 0.9% FLUSH 10 ML FLUSH IV FLUSH SCH ×2 (09:00→23:29)
[2017-06-24] MEDS: CHLORHEXIDINE 0.12% (ORAL KIT) 15 ML CUP MT SCH ×2 (09:58→23:28)
--- NOTE | 2017-06-24 10:08 | EKG ---
Date Performed: 06/21/2017 Time Performed: 16:22:29 PTAGE: 61 years EKG: Sinus rhythm NORMAL ECG PREVIOUS TRACING : 06/04/2017 16.49 Compared to prior tracing no significant change DOCTOR: Medhat Booth Interpretating Date/Time 06/24/2017 10:07:48
--- NOTE | 2017-06-24 10:34 | HHI.PR ---
Review/Management Diagnosis/Plan: (1) Acute encephalopathy ICD Codes: G93.40 - Encephalopathy, unspecified Status: Acute Plan: metabolic encephalopathy with possible underlying vascular dementia ?hx of underlying schizophrenia able to follow resp dysynchrony may be 2/2 pain- improved ct brain- old rt parietal infarct nh3 mildly elevated; lactulose recs neuro stable f/u eeg- no sz's mri no acute lesion sign off; call me if ? (2) Acute hypercapnic respiratory failure ICD Codes: J96.02 - Acute respiratory failure with hypercapnia Status: Acute (3) Acute renal insufficiency ICD Codes: N28.9 - Disorder of kidney and ureter, unspecified Status: Acute (4) Rhabdomyolysis ICD Codes: M62.82 - Rhabdomyolysis Status: Acute Subjective Subjective Comments No acute events reported No headache No chest pain No dyspnea Active Medications Current Medications Medications (Trade) Dose Ordered Sig/[place] Route Start Time Stop Time Status Last Admin (Narcan Inj) 0.4 mg UNSCH PRN IV PUSH 06/03/17 21:45 (Duoneb Neb) 1 ampule Q2HR NEB PRN NEB 06/03/17 22:45 06/23/17 20:13 (Lipitor) 40 mg HS PO 06/04/17 21:00 Future Hold 06/22/17 20:49 (Cogentin) 1 mg HS PO 06/04/17 21:00 Future Hold 06/22/17 20:49 (Aricept) 5 mg HS PO 06/04/17 21:00 Future Hold 06/22/17 21:18 (risperDAL) 1 mg HS PO 06/04/17 21:00 Future Hold 06/22/17 20:49 (Flomax) 0.4 mg HS PO 06/04/17 21:00 Future Hold 06/22/17 20:49 (Effexor Xr) 150 mg DAILY PO 06/04/17 09:00 Future Hold 06/23/17 09:59 Miscellaneous Information 1 Q361D XX 06/04/17 03:45 (Chlorhexidine 2% Cloth) 3 pack Taper DAILY@04 TOP 06/04/17 04:00 05/31/18 03:59 06/23/17 23:31 (Chlorhexidine 2% Cloth) 3 pack UNSCH PRN TOP 06/04/17 03:45 (Norvasc) 5 mg DAILY PO 06/04/17 12:00 Future Hold 06/22/17 08:21 (Apresoline Inj) 10 mg Q4H PRN IV PUSH 06/04/17 13:00 06/20/17 22:23 (NS Flush) 2 ml UNSCH PRN IV FLUSH 06/04/17 16:45 (NS Flush) 2 ml BID IV FLUSH 06/04/17 21:00 06/24/17 09:00 (Peridex 0.12% Liq) 15 ml BID@08,20 MT 06/04/17 20:00 06/24/17 09:58 (Trandate Inj) 20 mg Q4H PRN IV PUSH 06/04/17 17:00 06/10/17 15:35 (Lovenox Inj) 40 mg Q24H SQ 06/05/17 17:00 Future Hold 06/16/17 15:33 Dexmedetomidine HCl 1000 mcg/ Sodium Chloride 250 ml @ 4.95 mls/hr TITRATE PRN IV 06/10/17 09:30 06/23/17 23:28 (Tylenol) 650 mg Q4H PRN PO 06/10/17 12:15 Future Hold 06/23/17 02:33 (Pepcid) 20 mg Q12HR PO 06/10/17 21:00 Future Hold 06/23/17 09:58 Micafungin Sodium 150 mg/Sodium Chloride 100 ml @ 100 mls/hr Q24H IV 06/14/17 14:00 06/23/17 17:16 (Mycostatin Powder) 1 applic Q12HR PRN TOPICAL 06/14/17 11:00 (Mag-Ox) 800 mg UNSCH PRN PO 06/15/17 07:00 Magnesium Sulfate 4 gm/Sodium Chloride 100 ml @ 50 mls/hr UNSCH PRN IV 06/15/17 07:00 Magnesium Sulfate 2 gm/Sodium Chloride 100 ml @ 50 mls/hr UNSCH PRN IV 06/15/17 07:00 Potassium Chloride 100 ml @ 50 mls/hr Q2H PRN IV 06/15/17 07:00 06/17/17 18:35 Potassium Chloride 100 ml @ 50 mls/hr Q2H PRN IV 06/15/17 07:00 06/16/17 10:30 Potassium Chloride 100 ml @ 50 mls/hr Q2H PRN IV 06/15/17 07:00 Potassium Chloride 100 ml @ 25 mls/hr UNSCH PRN IV 06/15/17 07:00 (K-Phos) 2,000 mg Q4H PRN PO 06/15/17 07:00 (K-Phos) 2,000 mg UNSCH PRN PO/TUBE 06/15/17 07:00 Potassium Phosphate 30 mmol/ Sodium Chloride 260 ml @ 42 mls/hr UNSCH PRN IV 06/15/17 07:00 Sodium Phosphate 30 mmol/Sodium Chloride 250 ml @ 42 mls/hr UNSCH PRN IV 06/15/17 07:00 (Geodon Inj) 10 mg Q12H PRN IM 06/15/17 07:15 06/19/17 10:24 (Nutrisource Fiber Powder) 2 pack BID G-TUBE 06/15/17 09:00 06/23/17 09:00 (Catapres) 0.3 mg Q8HR PO 06/18/17 14:00 Future Hold 06/22/17 20:49 (Tenex) 2 mg Q12HR PO 06/19/17 14:00 Future Hold 06/23/17 09:59 (Imodium Liq) 2 mg UNSCH PRN PO 06/19/17 17:45 Future Hold (Lopressor) 50 mg Q12HR PO 06/21/17 11:00 Future Hold 06/22/17 21:18 Fentanyl Citrate 250 ml @ 5 mls/hr TITRATE PRN IV 06/21/17 15:45 06/22/17 23:48 (Lactulose Liq) 30 ml TID PO 06/22/17 13:00 Future Hold 06/23/17 13:39 Lactated Ringer's 1,000 ml @ 84 mls/hr [id number] IV 06/23/17 04:15 06/23/17 23:32 (Senna Liq) 8.8 mg DAILY PO 06/23/17 09:00 06/23/17 09:58 (D50w (Vial) Inj) 50 ml UNSCH PRN IV PUSH 06/23/17 07:30 (Glucagon Inj) 1 mg UNSCH PRN OTHER 06/23/17 07:30 (NovoLIN R SUPPLEMENTAL SCALE) 1 Q4H SQ 06/23/17 07:30 12/24/17 15:30 (Zofran Inj) 4 mg Q8HR PRN IV PUSH 06/23/17 16:00 Cefepime HCl 2000 mg/Sodium Chloride 100 ml @ 200 mls/hr Q8H IV 06/23/17 18:00 06/24/17 09:58 (Pepcid Inj) 20 mg Q12H IV PUSH 06/23/17 23:00 06/23/17 23:28 Allergies Allergies Coded Allergies hydrochlorothiazide (Unverified Allergy, Intermediate, EFFECTS HIS SODIUM LEVEL, 02/12/17) codeine (Unverified Adverse Reaction, Severe, 02/12/17) Review of Systems All other ROS: ROS reviewed as documented in chart Exam I&O / VS Vital Signs Date Time Temp Pulse Resp B/P (MAP) Pulse Ox O2 Delivery O2 Flow Rate FiO2 06/24/17 08:51 94 50 06/24/17 08:00 50 06/24/17 06:21 100 50 06/24/17 06:00 65 06/24/17 04:00 98.6 64 17 99/63 (75) 92 06/24/17 04:00 50 06/24/17 04:00 64 06/24/17 02:24 100 50 06/24/17 02:00 62 06/24/17 00:00 98.5 69 19 122/81 (95) 97 06/24/17 00:00 69 06/24/17 00:00 50 06/23/17 22:00 65 06/23/17 20:30 100 100 06/23/17 20:14 99 50 06/23/17 20:00 68 06/23/17 20:00 98.1 68 17 106/69 (81) 96 06/23/17 20:00 50 06/23/17 18:00 80 06/23/17 18:00 73 23 114/72 (86) 95 06/23/17 16:01 93 50 06/23/17 16:00 80 06/23/17 16:00 45 06/23/17 16:00 88 23 118/75 (89) 95 06/23/17 14:00 80 06/23/17 14:00 76 21 134/77 (96) 93 06/23/17 12:00 79 20 103/65 (78) 92 06/23/17 12:00 80 06/23/17 11:15 91 45 06/23/17 11:00 79 20 103/65 (78) 92 Exam Comments awake, trach/peg, looks more calm, severe hypophonic speech, follows, eomi, + blink to threat, mild reduced left nlf, weaker probation and parole officer on left, withdraws alisha le to tactile, planterflexor response Objective Micro and Labs Laboratory Tests Test 06/23/17 15:55 06/23/17 23:19 06/24/17 06:15 Blood Gas Puncture Site RT RADIAL Blood Gas Patient Temperature 98.6 Blood Gas HCO3 23 Blood Gas Base Excess 0.3 Blood Gas Oxygen Saturation 88 Arterial Blood pH 7.50 Arterial Blood Partial Pressure CO2 30 Arterial Blood Partial Pressure O2 55 Arterial Blood Oxygen Content 14.4 Arterial Blood Carboxyhemoglobin 1.1 Arterial Blood Methemoglobin 1.1 Blood Gas Hemoglobin 11.6 Oxygen Delivery Device VENTILATOR Blood Gas Ventilator Setting Blood Gas Inspired Oxygen 40 Lactic Acid Level 1.4 1.6 White Blood Count 8.7 Red Blood Count 3.75 Hemoglobin 11.1 Hematocrit 33.4 Mean Corpuscular Volume 89.1 Mean Corpuscular Hemoglobin 29.5 Mean Corpuscular Hemoglobin Concent 33.1 Red Cell Distribution Width 14.3 Platelet Count 185 Mean Platelet Volume 7.7 Neutrophils (%) (Auto) 90.7 Lymphocytes (%) (Auto) 5.8 Monocytes (%) (Auto) 2.7 Eosinophils (%) (Auto) 0.7 Basophils (%) (Auto) 0.1 Neutrophils # (Auto) 7.9 Lymphocytes # (Auto) 0.5 Monocytes # (Auto) 0.2 Eosinophils # (Auto) 0.1 Basophils # (Auto) 0.0 CBC Comment DIFF FINAL Differential Comment Blood Urea Nitrogen 25 Creatinine 0.71 Random Glucose 123 Total Protein 5.8 Albumin 2.1 Calcium Level 8.2 Phosphorus Level 2.3 Magnesium Level 2.2 Alkaline Phosphatase 73 Aspartate Amino Transf (AST/SGOT) 14 Alanine Aminotransferase (ALT/SGPT) 27 Total Bilirubin 0.9 Sodium Level 138 Potassium Level 3.8 Chloride Level 104 Carbon Dioxide Level 25.4 Anion Gap 9 Estimat Glomerular Filtration Rate 113 Date/Time Source Procedure Growth Status 06/19/17 01:35 Blood Peripheral Aerobic Blood Culture - Preliminary NO GROWTH IN 4 DAYS Resulted 06/19/17 01:35 Blood Peripheral Anaerobic Blood Culture - Preliminary NO GROWTH IN 4 DAYS Resulted 06/21/17 13:30 Sputum Expectorated Sputum Gram Stain - Final Complete 06/21/17 13:30 Sputum Culture - Final Escherichia Coli Pseudomonas Aeruginosa Complete 06/10/17 12:45 Urine Catheterized Urine Urine Culture - Final NO GROWTH IN 48 HOURS. Complete Problem Qualifiers (1) Rhabdomyolysis: Qualified Codes: M62.82 - Rhabdomyolysis Kevin Gleason MD Jun 24, 2017 10:34
[2017-06-24] MEDS: LACTATED RINGER'S 1000 ML INJ 1,000 ML IV SCH ×3 (11:37→23:29)
[2017-06-24] MEDS: DEXMEDETOMIDINE INJ 1,000 MCG in SODIUM CHLOR 0.9% 250 ML INJ 240 ML IV PRN (11:38)
[2017-06-24] MEDS: FAMOTIDINE 20 MG/2 ML VIAL IV PUSH SCH ×2 (11:38→23:28)
--- NOTE | 2017-06-24 12:53 | MB ---
cc: ANGELO MARTINEZ MD, DAVID G. M.D. DATE OF CONSULTATION: 06/24/2017 REASON FOR CONSULTATION Pneumatosis. BRIEF HISTORY This is an unfortunate 61-year-old gentleman with multiple medical problems, who is ventilated through a tracheostomy tube in room 527 of the [facility]. Apparently, had a hypotensive episode, had a CT scan of the abdomen and pelvis which showed some pneumatosis of the cecum and proximal transverse colon. He has had an elevated white count. His white count today is back to normal. A surgical consultation was requested. The patient is intubated. He does follow simple commands, tries to communicate by talking but due to the tracheostomy tube placement unable to really effectively communicate. He was admitted initially due to mental status changes. 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 PREVIOUS MEDICAL PROBLEMS 1. COPD. 2. Hypertension. 3. Hyperlipidemia. 4. Cerebrovascular accident. 5. Schizoaffective disorder. 6. Bipolar disorder. 7. Gastroesophageal reflux disease. 8. Acute renal failure. 9. Arthritis. 10. Alcohol withdrawal with seizures. PREVIOUS SURGERIES 1. Left pneumonectomy. 2. Left hip surgery. 3. Tracheostomy tube placement. MEDICATIONS Routine medications prior to admission: Include 1. Pro-Air HFA inhaler. 2. Venlafaxine. 3. Trazodone. 4. Tramadol. 5. Tamsulosin. 6. Risperidone. 7. Meloxicam. 8. Lisinopril. 9. Gabapentin. 10. Donepezil. 11. Benztropine. 12. Atorvastatin. SOCIAL HISTORY Apparently history of tobacco and alcohol abuse. FAMILY HISTORY Family history is not obtained. REVIEW OF SYSTEMS Also unobtainable. PHYSICAL EXAMINATION GENERAL: He appears appropriate for his stated age. gentleman on a ventilator. Long hair, long nails. VITAL SIGNS: His blood pressure was stable with a systolic in the 110. His heart rate is in the 70s. His O2 sat was in the mid 90s and he is on ventilator with FIO2 50%. HEENT: He was normocephalic, atraumatic. His pupils are 4 mm round, equal and sluggishly reactive to light. His sclerae are anicteric. His oropharynx demonstrates poor dentition. He has a tracheostomy tube in place with green bilious secretions on the dressing around his tracheostomy tube and there is a towel beneath the tracheostomy absorbing some of those bilious secretions. LUNGS: He has equal bilateral breath sounds. He has expiratory mild wheezing. HEART: His heart sounds are distant yet regular without obvious murmur, rub or gallop. ABDOMEN: His abdomen is protuberant and soft. It is distended. It is fairly quiet. He has no tenderness to palpation of the abdomen. He has a small uncomplicated umbilical hernia. There are no scars. No obvious groin hernias. GENITALIA: His external genitalia is swollen. EXTREMITIES: His extremities are mildly edematous. He has got equal radial and dorsalis pedis pulses. NEUROLOGIC: He is awake and alert. He does follow simple commands, wiggling his toes and squeezing his hands, he is weak. LABORATORY DATA His labs show today a white count of 8.7 which is down from 14.2, does have a left shift with 90% neutrophils. His hemoglobin is 11.1. His coagulation studies show a PTT of 49. Admission INR on the 03 of June was 1. The PTT was 49 on the 04 of June. His chemistries show potassium of 3.8, his BUN is 25. His creatinine is 0.71, random glucose was 123, lactic acid is 1.6. His phosphorus is 2.3, magnesium 2.2, albumin 2.1. C. Difficile toxin was presumptive negative. IMAGING STUDIES He had imaging studies. A CT scan of the abdomen and pelvis from June 23, 2017 was reviewed which showed pneumatosis in the cecum and proximal transverse colon suspicious for ischemic colitis, surrounding inflammatory change in the intra-abdominal fat was noted. However, no portal venous gas or free air was identified. He had prominent bilateral lower lobe pulmonary consolidation. A follow-up chest x-ray today shows bibasilar atelectasis and/or infiltrate. A follow-up abdominal x-ray shows dilated transverse colon, no definite pneumatosis for technique. ASSESSMENT An unfortunate 61-year-old gentleman with multiple medical problems, who had a hypotensive episode and on CT was incidentally discovered to have pneumatosis intestinalis of the cecum and proximal transverse colon. The best therapy available for this is rehydration and prophylactic antibiotic therapy which he is receiving. If the patient develops peritonitis there would be an indication for surgical exploration with possible bowel resection. Given the fact that his abdominal exam was completely benign outside of his distension, I am not inclined to recommend surgical intervention at this time. I discussed this with the patient who appears to have some understanding of my recommendation. We will follow along. MD RIKA Miguel/ARNOLD /11:47 AM /12:10 PM MTDNata
--- NOTE | 2017-06-24 14:05 | HHI.IDPN ---
Subjective Subjective Remarks + low grade fever + vomiting co severe abd pain cont to have diarrhea CT showed pneumotosis coli seen by gen surgeon, med mngmnt recommended Antibiotics mycafungin' cefepime Allergies: Coded Allergies: hydrochlorothiazide (Unverified Allergy, Intermediate, EFFECTS HIS SODIUM LEVEL, 02/12/17) PT STATES HE IS NOT ALLERGIC codeine (Unverified Adverse Reaction, Severe, 02/12/17) PT STATES HE IS NOT ALLERGIC Objective . Vital Signs Date Time Temp Pulse Resp B/P (MAP) Pulse Ox O2 Delivery O2 Flow Rate FiO2 06/24/17 13:45 64 19 116/75 (89) 95 06/24/17 13:30 67 19 119/75 (90) 94 06/24/17 13:15 67 21 117/75 (89) 94 06/24/17 13:00 66 19 109/70 (83) 93 06/24/17 12:45 71 27 111/70 (84) 92 06/24/17 12:30 71 24 117/74 (88) 92 06/24/17 12:15 72 20 115/75 (88) 92 06/24/17 12:00 100.7 75 29 114/74 (87) 90 06/24/17 12:00 50 06/24/17 11:45 74 24 117/79 (92) 97 06/24/17 11:30 83 37 120/83 (95) 94 06/24/17 11:30 96 50 06/24/17 11:15 71 21 109/68 (82) 93 06/24/17 11:00 73 24 108/70 (83) 93 06/24/17 10:45 81 23 129/73 (91) 93 06/24/17 10:30 71 23 119/75 (90) 94 06/24/17 10:15 70 20 112/71 (85) 92 06/24/17 10:00 69 20 113/70 (84) 95 06/24/17 09:45 71 18 106/64 (78) 94 06/24/17 09:30 70 20 113/72 (86) 95 06/24/17 09:15 72 21 130/81 (97) 95 06/24/17 09:00 70 22 143/76 (98) 98 06/24/17 08:51 94 50 06/24/17 08:45 69 20 119/66 (83) 95 06/24/17 08:30 74 25 149/75 (99) 97 06/24/17 08:15 72 19 144/82 (102) 95 06/24/17 08:00 50 06/24/17 08:00 98.4 66 18 119/72 (88) 93 06/24/17 07:45 73 24 135/69 (91) 95 06/24/17 07:30 66 19 112/70 (84) 94 06/24/17 07:15 65 19 104/67 (79) 93 06/24/17 07:00 67 20 119/71 (87) 94 06/24/17 06:21 100 50 06/24/17 06:00 65 06/24/17 04:00 98.6 64 17 99/63 (75) 92 06/24/17 04:00 50 06/24/17 04:00 64 06/24/17 02:24 100 50 06/24/17 02:00 62 06/24/17 00:00 98.5 69 19 122/81 (95) 97 06/24/17 00:00 69 06/24/17 00:00 50 06/23/17 22:00 65 06/23/17 20:30 100 100 06/23/17 20:14 99 50 06/23/17 20:00 68 06/23/17 20:00 98.1 68 17 106/69 (81) 96 06/23/17 20:00 50 06/23/17 18:00 80 06/23/17 18:00 73 23 114/72 (86) 95 06/23/17 16:01 93 50 06/23/17 16:00 80 06/23/17 16:00 45 06/23/17 16:00 88 23 118/75 (89) 95 06/23/17 14:00 80 06/23/17 14:00 76 21 134/77 (96) 93 06/24/17 06/24/17 06/25/17 15:00 23:00 07:00 Intake Total 1350 ml Balance 1350 ml IV Total 1350 ml . Laboratory Tests Test 06/23/17 05:10 06/24/17 06:15 White Blood Count 14.2 TH/MM3 8.7 TH/MM3 Red Blood Count 3.76 MIL/MM3 3.75 MIL/MM3 Hemoglobin 11.4 GM/DL 11.1 GM/DL Hematocrit 33.8 % 33.4 % Mean Corpuscular Volume 89.8 FL 89.1 FL Mean Corpuscular Hemoglobin 30.2 PG 29.5 PG Mean Corpuscular Hemoglobin Concent 33.7 % 33.1 % Red Cell Distribution Width 14.4 % 14.3 % Platelet Count 226 TH/MM3 185 TH/MM3 Mean Platelet Volume 8.4 FL 7.7 FL Neutrophils (%) (Auto) 92.3 % 90.7 % Lymphocytes (%) (Auto) 3.8 % 5.8 % Monocytes (%) (Auto) 3.2 % 2.7 % Eosinophils (%) (Auto) 0.4 % 0.7 % Basophils (%) (Auto) 0.3 % 0.1 % Neutrophils # (Auto) 13.1 TH/MM3 7.9 TH/MM3 Lymphocytes # (Auto) 0.5 TH/MM3 0.5 TH/MM3 Monocytes # (Auto) 0.5 TH/MM3 0.2 TH/MM3 Eosinophils # (Auto) 0.1 TH/MM3 0.1 TH/MM3 Basophils # (Auto) 0.0 TH/MM3 0.0 TH/MM3 CBC Comment DIFF FINAL DIFF FINAL Differential Comment Laboratory Tests Test 06/23/17 05:10 06/23/17 23:19 06/24/17 06:15 Blood Urea Nitrogen 33 MG/DL 25 MG/DL Creatinine 1.21 MG/DL 0.71 MG/DL Random Glucose 173 MG/DL 123 MG/DL Calcium Level 8.5 MG/DL 8.2 MG/DL Sodium Level 136 MEQ/L 138 MEQ/L Potassium Level 4.6 MEQ/L 3.8 MEQ/L Chloride Level 105 MEQ/L 104 MEQ/L Carbon Dioxide Level 21.9 MEQ/L 25.4 MEQ/L Anion Gap 9 MEQ/L 9 MEQ/L Estimat Glomerular Filtration Rate 61 ML/MIN 113 ML/MIN Lactic Acid Level 1.4 mmol/L 1.6 mmol/L Total Protein 5.8 GM/DL Albumin 2.1 GM/DL Phosphorus Level 2.3 MG/DL Magnesium Level 2.2 MG/DL Alkaline Phosphatase 73 U/L Aspartate Amino Transf (AST/SGOT) 14 U/L Alanine Aminotransferase (ALT/SGPT) 27 U/L Total Bilirubin 0.9 MG/DL Imaging Last Impressions Chest X-Ray 06/23/17 0000 Signed Impressions: Service Date/Time: Friday, June 23, 2017 03:45 - CONCLUSION: No significant interval change Arvind Hernandez MD Abdomen X-Ray 06/23/17 0000 Signed Impressions: Service Date/Time: Friday, June 23, 2017 03:51 - CONCLUSION: Diffuse mild gaseous distention of bowel Arvind Hernandez MD Brain MRI 06/22/17 0000 Signed Impressions: Service Date/Time: Thursday, June 22, 2017 12:10 - CONCLUSION: All ischemic changes, negative for acute ischemic event. Negative for parenchymal hemorrhage. Usman Pimentel MD FACR Abdomen/Pelvis CT 06/14/17 0000 Signed Impressions: Service Date/Time: Wednesday, June 14, 2017 22:32 - CONCLUSION: 1. Increasing basilar lung consolidation since chest CT from June 04. 2. Mild ileus. No bowel obstruction, free air or free fluid. 3. Left hip replacement. Advanced osteoarthritis right hip. NG in stomach. Rectal tube present. Humphrey Weston MD Head CT 06/04/17 0000 Signed Impressions: Service Date/Time: Sunday, June 04, 2017 18:46 - CONCLUSION: 1. No significant change compared to 06/03/17. 2. No acute infarct, acute hemorrhage , mass effect or extra-axial fluid collection. 3. Scattered old lacunar infarcts within the bilateral basal ganglia. 4. Mild periventricular and subcortical white matter small vessel ischemic changes bilaterally. 5. Old right posterior parietal infarct. 6. Chronic opacification of right mastoid air cells. Mckay Stone MD Chest CT 06/04/17 0000 Signed Impressions: Service Date/Time: Sunday, June 04, 2017 18:49 - CONCLUSION: 1. Right mid lung field and posterior bibasilar patchiness consistent with probable areas of pneumonia and/or atelectasis. Clinical correlation is recommended. 2. Tiny bilateral pleural effusions. 3. Cardiomegaly and coronary artery calcifications. 4. Minimal scattered emphysematous changes bilaterally. Mckay Stone MD Physical Exam CONSTITUTIONAL/GENERAL: This is an adequately nourished patient, in no apparent distress. TUBES/LINES/DRAINS: SKIN: No jaundice, rashes, or lesions. Skin temperature appropriate. Not diaphoretic. EYES: Pupils equal and round and reactive. Extraocular motions intact. No scleral icterus. No injection or drainage. Fundi not examined. NECK: trach iin place , large amount of greenish drainage around trach CARDIOVASCULAR: Regular rate and rhythm without murmurs, gallops, or rubs. No JVD. Peripheral pulses symmetric. RESPIRATORY/CHEST: Symmetric, unlabored respirations. Clear to auscultation. Breath sounds equal bilaterally. No wheezes, rales, or rhonchi. GASTROINTESTINAL: Abdomen somewhat tense, appears very tender in RLQ markedly distended, tympanic to palpation . No hepato-splenomegaly, or palpable masses. No guarding. Bowel sounds present , hyperactive . GENITOURINARY: Without palpable bladder distension. condom catheter in place with clear yellow MUSCULOSKELETAL: Extremities without clubbing, cyanosis, or edema. No joint tenderness or effusion noted. No calf tenderness. No mottling or clubbing. NEUROLOGICAL: moves all 4 extremeties, awake, alert, obeys commands PSYCHIATRIC: unable to assess Assessment & Plan Remarks Assessment and Plan Mental status change, PNA, E.coli Acute VDRF, failure to wean Multiple med problems worsning leukocytosis source: worsening PNA also consicder intar abd UA nos cw infx Abdominal distention, diarrhea C.diff negative Persistent leukocytosis C glabrata funguria - source is intraabdominal Persistent leukocytosis New issue PNA (PSAE in spurtu) New issue: cecum pneumcatosis coli, mos likely ischemic colitis - gen surgery saw the pt, medical mngmnt reccom'd cont mycafungin, anticipate 14 days at least from [address] st neg clx repeat blood clx (persistent interemittent fever) restart zosyn to cover both PSAE and intraabd aerobic/anaerobic tamara dw Mabel Mosqueda RN, Alexandra A. MD Jun 24, 2017 14:05
--- NOTE | 2017-06-24 14:23 | HHI.PR ---
Subjective Remarks 61 YOWM with VDRF,Trach,COPD did't tolerate CPAP Sedated with Fentanyl and Precedex No Fever Awake follows commands Vomitted X1 Seen by surgery, no need for surgery. Objective Vital Signs Vital Signs Date Time Temp Pulse Resp B/P (MAP) Pulse Ox O2 Delivery O2 Flow Rate FiO2 06/24/17 14:00 68 06/24/17 13:45 64 19 116/75 (89) 95 06/24/17 13:30 67 19 119/75 (90) 94 06/24/17 13:15 67 21 117/75 (89) 94 06/24/17 13:00 66 19 109/70 (83) 93 06/24/17 12:45 71 27 111/70 (84) 92 06/24/17 12:30 71 24 117/74 (88) 92 06/24/17 12:15 72 20 115/75 (88) 92 06/24/17 12:00 100.7 75 29 114/74 (87) 90 06/24/17 12:00 75 06/24/17 12:00 50 06/24/17 11:45 74 24 117/79 (92) 97 06/24/17 11:30 83 37 120/83 (95) 94 06/24/17 11:30 96 50 06/24/17 11:15 71 21 109/68 (82) 93 06/24/17 11:00 73 24 108/70 (83) 93 06/24/17 10:45 81 23 129/73 (91) 93 06/24/17 10:30 71 23 119/75 (90) 94 06/24/17 10:15 70 20 112/71 (85) 92 06/24/17 10:00 69 06/24/17 10:00 69 20 113/70 (84) 95 06/24/17 09:45 71 18 106/64 (78) 94 06/24/17 09:30 70 20 113/72 (86) 95 06/24/17 09:15 72 21 130/81 (97) 95 06/24/17 09:00 70 22 143/76 (98) 98 06/24/17 08:51 94 50 06/24/17 08:45 69 20 119/66 (83) 95 06/24/17 08:30 74 25 149/75 (99) 97 06/24/17 08:15 72 19 144/82 (102) 95 06/24/17 08:00 50 06/24/17 08:00 66 06/24/17 08:00 98.4 66 18 119/72 (88) 93 06/24/17 07:45 73 24 135/69 (91) 95 06/24/17 07:30 66 19 112/70 (84) 94 06/24/17 07:15 65 19 104/67 (79) 93 06/24/17 07:00 67 20 119/71 (87) 94 06/24/17 06:21 100 50 06/24/17 06:00 65 06/24/17 04:00 98.6 64 17 99/63 (75) 92 06/24/17 04:00 50 06/24/17 04:00 64 06/24/17 02:24 100 50 06/24/17 02:00 62 06/24/17 00:00 98.5 69 19 122/81 (95) 97 06/24/17 00:00 69 06/24/17 00:00 50 06/23/17 22:00 65 06/23/17 20:30 100 100 06/23/17 20:14 99 50 06/23/17 20:00 68 06/23/17 20:00 98.1 68 17 106/69 (81) 96 06/23/17 20:00 50 06/23/17 18:00 80 06/23/17 18:00 73 23 114/72 (86) 95 06/23/17 16:01 93 50 06/23/17 16:00 80 06/23/17 16:00 45 06/23/17 16:00 88 23 118/75 (89) 95 I/O 06/23/17 06/23/17 06/23/17 06/24/17 06/24/17 06/24/17 07:00 15:00 23:00 07:00 15:00 23:00 Intake Total 2290 ml 360 ml 100 ml 1350 ml Output Total 450 ml 550 ml Balance 1840 ml 360 ml -450 ml 1350 ml IV Total 1147 ml 300 ml 100 ml 1350 ml Tube Feeding 593 ml 0 ml 0 ml Other 550 ml 60 ml 0 ml Output Urine Total 450 ml 550 ml # Voids 4 2 # Bowel Movements 1 1 1 Result Diagram: 06/24/1761406/24/17614 Objective Remarks GENERAL: MBMN WM, on Vent, sedated SKIN: Warm and dry. HEAD: Normocephalic. EYES: No scleral icterus. No injection or drainage. NECK: Supple, trachea midline. No JVD or lymphadenopathy. CARDIOVASCULAR: Regular rate and rhythm without murmurs, gallops, or rubs. RESPIRATORY: Breath sounds equal bilaterally. No accessory muscle use. GASTROINTESTINAL: Abdomen soft, non-tender, nondistended. MUSCULOSKELETAL: No cyanosis, or edema. BACK: Nontender without obvious deformity. No CVA tenderness. A/P Assessment and Plan VDRF S/P Trach COPD COPD Schzoaffective disorder Bipolar disorder PLAN: Vent Support Cont Abx Sputum culture Sedation with Fentanyl and Precedex DW Family at [facility] Cuellar MD Jun 24, 2017 14:23
[2017-06-24] MEDS: MICAFUNGIN INJ 150 MG in SODIUM CHLORIDE 0.9% INJ 100 ML IV SCH (14:49)
[2017-06-24] MEDS: PIPERACIL-TAZO 4.5 GM PREMIX 100 ML IV SCH ×2 (14:49→23:29)
--- NOTE | 2017-06-24 15:19 | HHI.CCPN ---
Subjective Remarks/Hospital Course 06/04: Mr. Reilly is a 61-year-old male with a history of COPD, hypertension, hyperlipidemia, CVA, schizoaffective disorder, bipolar disorder, GERD, renal failure, and arthritis who presented to the emergency room on 06/03/2017 from a senior care facility for evaluation of altered mental status. Upon review of the medical records from the senior care facility, it is noted he had a right lower lobe pneumonia diagnosed mid May. Head CT showed no acute infarct, acute hemorrhage, mass effect, or extra-axial fluid collection but scattered old lacunar infarcts within the bilateral basal ganglia. Mild periventricular and subcortical white matter small vessel ischemic changes bilaterally. Chest x-ray shows scattered bibasilar patchiness consistent with possible pneumonia. Per documentation : While in the ER, patient was in moderate respiratory distress with tachypnea and utilization of accessory abdominal muscles to breathe. His lung sounds are bilaterally congested and he is confused and a poor historian. His speech is slightly slurred but this is not a new finding. He was noted to be on 5 L nasal cannula with oxygen saturation of 94% in the emergency room. Patient was admitted to the ICU by the hospitalist service. He was initiated on heparin drip for suspicion of PE. He was also noted to have an elevated CPK and creatinine. His blood pressures were running high overnight. This afternoon patient developed worsening agitation and disorientation and confusion. His heparin was stopped earlier by Dr. Garcia due to low suspicion for PE. Patient developed worsening respiration status with respirations in the 30s and O2 sats in the mid 80s. Critical care medicine was consulted. Patient was emergently intubated by Dr. Elvira Gutierrez and I subsequently took over patient care. When I evaluated the patient he had been sedated for the intubation and is being placed on mechanical ventilation. History was obtained by discussion with Dr. Garcia, Dr. Gutierrez and ICU nursing staff as well as documentation in the chart. 06/05: Remains sedated, orally intubated on mechanical ventilation. 06/06: Sedated, orally intubated on mechanical ventilation. Failed C Pap trial today. Got extremely anxious on lightening sedation. 06/07 No events overnight. Sedated and intubated. Afebrile. 06/08 No events overnight. Sedated with Diprivan, Fentanyl and intubated. 06/09 Patient remains sedated and intubated. Afebrile.Did not tolerate CPAP trials yesterday. 06/10 Patient is sedated with Fentanyl and Diprivan. Afebrile. Did not tolerate CPAP yesterday as he became restless, agitated and tachycardic. 06/11 Patient remains sedated and intubated. Spiked fever with Tmax 101.1 06/12 No events overnight. Sedated and intubated. Afebrile. 06/13 Patient remains intubated and sedated with Diprivan, fentanyl in addition he is on Precedex drip. T:100.0 06/14 Patient remains sedated and intubated. Afebrile. Did not tolerate CPAP trials yesterday as he became tahypenic, tachycardic and restless. 06/15: agitation persists. respiratory failure persists. severely volume overloaded. has been intubated for almost 2 weeks. may require trach. CT abd/ pelvis without overt acute disease. no other source for fungemia. 06/16: s/p trach yesterday. no significant changes. 06/17: plan for PEG today. agitation persists with significant delirium. no other significant changes. 06/18: s/p PEG placement. weaning off sedation. still failing cpap trials. 06/19: cannot wean off precedex: agitated delirium persists. also still failing cpap trials. 06/20 No events overnight. On Precedex drip for agitation. T: 100.1 last night. 06/21 No events overnight. Remains on Precedex drip. Afebrile. 06/22 Patient is sedated with Fentanyl and Precedex. Afebrile. For MRI brain today. 06/23 Patient became hypotensive overnight and had episode of desaturation with says in mid 80's. Given 500ml 5% Albumin now off sedation ( Fentanyl and Precedex held). BP is better. In addition he was given Dulcolax suppos. and Mg citrate now having BM's. KUB this morning showed diffuse mild gaseous distention of bowel. FIO2 requirements is better now on 50% FIO2 with PEEP: 10 from FIO2 75 % overnight. CXR unchanged ( Consolidation LLL and Atelectasis right lung base) . T:99.9 06/24: Remains on mechanical ventilation via tracheostomy. CT abdomen pelvis done on 06/23 revealed pneumatosis involving cecum and transverse colon suggesting ischemic colitis. Gen. surgery consulted and patient evaluated by Dr. emma blanco today who recommends medical management at this time with IV fluids and continuation of antibiotics. Patient not tolerating tube feeds and has abdominal distention. Maintaining blood pressure currently. Objective Vital Signs Date Time Temp Pulse Resp B/P (MAP) Pulse Ox O2 Delivery O2 Flow Rate FiO2 06/24/17 14:28 95 50 06/24/17 14:00 68 06/24/17 13:45 19 116/75 (89) 06/24/17 12:00 100.7 Intake and Output 06/24/17 06/24/17 06/25/17 08:00 16:00 00:00 Intake Total 100 ml 1350 ml Output Total 550 ml Balance -450 ml 1350 ml Result Diagram: 06/24/17 0615 06/24/17 0615 Other Results Laboratory Tests Test 06/23/17 15:55 Blood Gas Puncture Site RT RADIAL Blood Gas Patient Temperature 98.6 Blood Gas HCO3 23 mmol/L (22-26) Blood Gas Base Excess 0.3 mmol/L (-2-2) Blood Gas Oxygen Saturation 88 % (90-100) Arterial Blood pH 7.50 (7.380-7.420) Arterial Blood Partial Pressure CO2 30 mmHg (38-42) Arterial Blood Partial Pressure O2 55 mmHg (61-120) Arterial Blood Oxygen Content 14.4 Vol % (12.0-20.0) Arterial Blood Carboxyhemoglobin 1.1 % (0-4) Arterial Blood Methemoglobin 1.1 % (0-2) Blood Gas Hemoglobin 11.6 G/DL (12.0-16.0) Oxygen Delivery Device VENTILATOR Blood Gas Ventilator Setting Blood Gas Inspired Oxygen 40 % Imaging Last 48 hours Impressions Abdomen X-Ray 06/24/17 0600 Signed Impressions: Service Date/Time: Saturday, June 24, 2017 03:14 - CONCLUSION: Dilated transverse colon and no definite pneumatosis intestinalis or technique, however the patient's prior CT examination was suggestive of pneumatosis. Domingo Pollack MD Chest X-Ray 06/24/17 0000 Signed Impressions: Service Date/Time: Saturday, June 24, 2017 03:08 - CONCLUSION: Bibasilar atelectasis and/or infiltrate is seen. Domingo Pollack MD Chest X-Ray 06/23/17 0000 Signed Impressions: Service Date/Time: Friday, June 23, 2017 03:45 - CONCLUSION: No significant interval change Arvind Hernandez MD CT Angiography 06/23/17 0000 Signed Impressions: Service Date/Time: Friday, June 23, 2017 20:34 - CONCLUSION: 1. No evidence of pulmonary embolus. 2. Increased patchy bilateral pulmonary consolidation with mild thin-walled cavitation of focal consolidation in the right upper lobe. This finding could be related consolidation of an area of long with emphysema involvement. 3. Mild to moderate upper lobe pulmonary parenchymal emphysema is seen. Rosas Rowell MD Abdomen/Pelvis CT 06/23/17 0000 Signed Impressions: Service Date/Time: Friday, June 23, 2017 20:34 - CONCLUSION: 1. Bowel wall pneumatosis involving the cecum and proximal transverse colon. Findings are suspicious for ischemic colitis. Surrounding inflammatory change in the intra-abdominal fat. No portal venous gas or free air identified. 2. Prominent bilateral lower lobe pulmonary consolidation. Rosas Rowell MD Abdomen X-Ray 06/23/17 0000 Signed Impressions: Service Date/Time: Friday, June 23, 2017 03:51 - CONCLUSION: Diffuse mild gaseous distention of bowel Arvind Hernandez MD Last Impressions Chest X-Ray 06/23/17 0000 Signed Impressions: Service Date/Time: Friday, June 23, 2017 03:45 - CONCLUSION: No significant interval change Arvind Hernandez MD Abdomen X-Ray 06/23/17 0000 Signed Impressions: Service Date/Time: Friday, June 23, 2017 03:51 - CONCLUSION: Diffuse mild gaseous distention of bowel Arvind Hernandez MD Brain MRI 06/22/17 0000 Signed Impressions: Service Date/Time: Thursday, June 22, 2017 12:10 - CONCLUSION: All ischemic changes, negative for acute ischemic event. Negative for parenchymal hemorrhage. Usman Pimentel MD FACR Abdomen/Pelvis CT 06/14/17 0000 Signed Impressions: Service Date/Time: Wednesday, June 14, 2017 22:32 - CONCLUSION: 1. Increasing basilar lung consolidation since chest CT from June 04. 2. Mild ileus. No bowel obstruction, free air or free fluid. 3. Left hip replacement. Advanced osteoarthritis right hip. NG in stomach. Rectal tube present. Humphrey Weston MD Head CT 06/04/17 0000 Signed Impressions: Service Date/Time: Sunday, June 04, 2017 18:46 - CONCLUSION: 1. No significant change compared to 06/03/17. 2. No acute infarct, acute hemorrhage , mass effect or extra-axial fluid collection. 3. Scattered old lacunar infarcts within the bilateral basal ganglia. 4. Mild periventricular and subcortical white matter small vessel ischemic changes bilaterally. 5. Old right posterior parietal infarct. 6. Chronic opacification of right mastoid air cells. Mckay Stone MD Chest CT 06/04/17 0000 Signed Impressions: Service Date/Time: Sunday, June 04, 2017 18:49 - CONCLUSION: 1. Right mid lung field and posterior bibasilar patchiness consistent with probable areas of pneumonia and/or atelectasis. Clinical correlation is recommended. 2. Tiny bilateral pleural effusions. 3. Cardiomegaly and coronary artery calcifications. 4. Minimal scattered emphysematous changes bilaterally. Mckay Stone MD Objective Remarks GENERAL: Patient is 61 yo on ventilator via trach. SKIN: Warm and dry. HEAD: Normocephalic. EYES: No scleral icterus. No injection or drainage. NECK: Supple, trachea midline. No JVD or lymphadenopathy. + Trach CARDIOVASCULAR: Regular rate and rhythm without murmurs, gallops, or rubs. RESPIRATORY: Breath sounds equal bilaterally.Coarse BS GASTROINTESTINAL: Abdomen soft, non-tender, distended, bowel sounds sluggish MUSCULOSKELETAL: No cyanosis, or edema. Neuro: Off sedation, follows simple commands intermittently. A/P Assessment and Plan Assessment: 61yM with history of schizoaffective d/o and bipolar d/o who presented with acute hypoxic respiratory failure and now fungemia without overt source. Not improving on pathway. No meaningful improvements over last 2 weeks. s/p trach 06/15 and PEG 06/17. remains off pathway. needs long-term acute care level of rehabilitation. agitation still the biggest barrier to successful weaning. Plan: Neuro: Acute Metabolic Encephalopathy Agitated Delirium - persistent. Schizoaffective disorder/bipolar disorder History of alcohol abuse History of CVA Fentanyl and Precedex currently on hold. Monitor neuro status MRI brain 06/22: No acute ischemic events, no hemorrhage On Lactulose level 30ml TID, Ammonia level slightly elevated 42. EEG showed mod. encephalopathy Neuro is following. Dr. Wayne Cheatham 10mg IM q12h prn for agitation continue Aricept and Cogentin clonidine to 0.3mg po q8h guanfacine 2mg po q12h CV: Uncontrolled hypertension - improving. hyperlipidemia Monitor HR and BP keep MAP>65mmHg Hold antihypertensive meds ( Norvasc 5mg daily, clonidine 0.3mg po q8h, Lopressor 50mg Q12) 2-D echo with normal LV/RV function Pulmo: Acute respiratory failure requiring mechanical ventilation - persistent. COPD exacerbation Resolving community acquired pneumonia Intubated and placed on mechanical ventilation on 06/04. Continue with vent support keep sat >92%. Vent bundle, bronchodilators, on prednisone taper. On PRVC Decrease FIO2 as cordell. CTA chest negative for PE. trach 06/[address] Sapp/[facility] GI/liver: GERD Acute protein calorie malnutrition- severe Hold tube feeds for now-Glucerna 1.5@60ml/hr 06/23 KUB abdomen: Mild gaseous distention of bowel Will repeat CT abd/pelvis Ct abd/pelvis 06/14: no bowel obstruction, free air or fluid C. Diff negative Continue with bowel regimen- On Lactulose 30ml TID, Senna daily. Given Mag citrate and Dulcolax overnight- having BM's this morning. Renal/: ROSENDO/ CKD - resolved. Rhabdomyolysis - resolved. Acute intravascular volume overload- resolved. Metabolic alkalosis- resolving. Monitor renal function, electrolytes replacement per protocol. on LR@84ml/hr ID: Fungemia Community Acquired Pneumonia- resolved. Ischemic colitis Sepsis continue abx per ID- on micafungin: plan for 14 days after 1st negative blood culture. Continue Zosyn, Levaquin CT abdomen pelvis on 06/23 shows pneumatosis involving cecum and transverse colon consistent with ischemic colitis. Patient evaluated by general surgery Dr. emma Carpio who at this time recommends continuing IV fluids and antibiotics and he will be available for surgery if patient develops evidence of peritonitis or worsens clinically. ID is following Sputum cx: E.coli on 06/04, sputum 06/10: normal resp tamara BC 06/14, 06/19 : NGTD, Sputum cx 06/21: E.coli, Pseudomonas Endocrine: Hyperglycemia of critical illness SSI medium scale, q4h Heme: Anemia secondary to chronic disease Monitor CBC. Prophylaxis: Pepcid/SCDs. SQ Lovenox Lines: PIV Discussed with Dr. Wiseman ID Level 3 Dejuan Bermudez MD Jun 24, 2017 15:18
[2017-06-25] VITALS (17 sets, daily range): BP systolic 104–148; BP diastolic 64–77; PULSE 59–69; RESP 18–24; TEMP 98.6–100; O2SAT 89–100
[2017-06-25] MEDS: PIPERACIL-TAZO 4.5 GM PREMIX 100 ML IV SCH ×4 (01:26→20:55)
[2017-06-25] MEDS: DEXMEDETOMIDINE INJ 1,000 MCG in SODIUM CHLOR 0.9% 250 ML INJ 240 ML IV PRN ×2 (01:26→18:54)
[2017-06-25] MEDS: INSULIN NovoLIN REGULAR SUPPLEMENTAL SCALE SQ SCH ×4 (03:30→22:32)
[2017-06-25] MEDS: CHLORHEXIDINE GLUCONATE 2 % 1 PACK (2 CLOTHS) TOP SCH (04:00)
[2017-06-25] MEDS: NUTRISOURCE FIBER POWDER 1 PACK G-TUBE SCH ×2 (09:00→20:55)
[2017-06-25] MEDS: SODIUM CHLORIDE 0.9% FLUSH 10 ML FLUSH IV FLUSH SCH ×2 (09:45→20:55)
[2017-06-25] MEDS: SENNOSIDES SYRUP 8.8 MG/5 ML CUP PO SCH (09:45)
[2017-06-25] MEDS: CHLORHEXIDINE 0.12% (ORAL KIT) 15 ML CUP MT SCH ×2 (09:47→20:54)
--- NOTE | 2017-06-25 12:10 | HHI.IDPN ---
Subjective Subjective Remarks ID COVERAGE 61-year-old male with a history of COPD, hypertension, hyperlipidemia, CVA, schizoaffective disorder, bipolar disorder, GERD, renal failure, and arthritis presented to the emergency room on 06[facility]03/2017 [facility]. H/o right lower lobe pneumonia in mid May. Head CT w/o acute findings Chest x-ray shows consistent with possible pneumonia. Has been intubated. Has been on vent and now S/P trach 06/15 Also with PEG HAs had low grade temps BP ok CT showed pneumotosis coli Has diarrhea WBC lower Seen by gen surgeon, med mgnt recommended Antibiotics Micafungin Zosyn Current Medications Medications (Trade) Dose Ordered Sig/Solange Route Start Time Stop Time Status Last Admin (Narcan Inj) 0.4 mg UNSCH PRN IV PUSH 06/03/17 21:45 (Duoneb Neb) 1 ampule Q2HR NEB PRN NEB 06/03/17 22:45 06/23/17 20:13 (Lipitor) 40 mg HS PO 06/04/17 21:00 Future Hold 06/22/17 20:49 (Cogentin) 1 mg HS PO 06/04/17 21:00 Future Hold 06/22/17 20:49 (Aricept) 5 mg HS PO 06/04/17 21:00 Future Hold 06/22/17 21:18 (risperDAL) 1 mg HS PO 06/04/17 21:00 Future Hold 06/22/17 20:49 (Flomax) 0.4 mg HS PO 06/04/17 21:00 Future Hold 06/22/17 20:49 (Effexor Xr) 150 mg DAILY PO 06/04/17 09:00 Future Hold 06/23/17 09:59 Miscellaneous Information 1 Q361D XX 06/04/17 03:45 (Chlorhexidine 2% Cloth) 3 pack Taper DAILY@04 TOP 06/04/17 04:00 05/31/18 03:59 06/25/17 04:00 (Chlorhexidine 2% Cloth) 3 pack UNSCH PRN TOP 06/04/17 03:45 (Norvasc) 5 mg DAILY PO 06/04/17 12:00 Future Hold 06/22/17 08:21 (Apresoline Inj) 10 mg Q4H PRN IV PUSH 06/04/17 13:00 06/20/17 22:23 (NS Flush) 2 ml UNSCH PRN IV FLUSH 06/04/17 16:45 (NS Flush) 2 ml BID IV FLUSH 06/04/17 21:00 06/25/17 09:45 (Peridex 0.12% Liq) 15 ml BID@08,20 MT 06/04/17 20:00 06/25/17 09:47 (Trandate Inj) 20 mg Q4H PRN IV PUSH 06/04/17 17:00 06/10/17 15:35 (Lovenox Inj) 40 mg Q24H SQ 06/05/17 17:00 Future Hold 06/16/17 15:33 Dexmedetomidine HCl 1000 mcg/ Sodium Chloride 250 ml @ 4.95 mls/hr TITRATE PRN IV 06/10/17 09:30 06/25/17 01:26 (Tylenol) 650 mg Q4H PRN PO 06/10/17 12:15 Future Hold 06/23/17 02:33 (Pepcid) 20 mg Q12HR PO 06/10/17 21:00 Future Hold 06/23/17 09:58 Micafungin Sodium 150 mg/Sodium Chloride 100 ml @ 100 mls/hr Q24H IV 06/14/17 14:00 06/24/17 14:49 (Mycostatin Powder) 1 applic Q12HR PRN TOPICAL 06/14/17 11:00 (Mag-Ox) 800 mg UNSCH PRN PO 06/15/17 07:00 Magnesium Sulfate 4 gm/Sodium Chloride 100 ml @ 50 mls/hr UNSCH PRN IV 06/15/17 07:00 Magnesium Sulfate 2 gm/Sodium Chloride 100 ml @ 50 mls/hr UNSCH PRN IV 06/15/17 07:00 Potassium Chloride 100 ml @ 50 mls/hr Q2H PRN IV 06/15/17 07:00 06/17/17 18:35 Potassium Chloride 100 ml @ 50 mls/hr Q2H PRN IV 06/15/17 07:00 06/16/17 10:30 Potassium Chloride 100 ml @ 50 mls/hr Q2H PRN IV 06/15/17 07:00 Potassium Chloride 100 ml @ 25 mls/hr UNSCH PRN IV 06/15/17 07:00 (K-Phos) 2,000 mg Q4H PRN PO 06/15/17 07:00 (K-Phos) 2,000 mg UNSCH PRN PO/TUBE 06/15/17 07:00 Potassium Phosphate 30 mmol/ Sodium Chloride 260 ml @ 42 mls/hr UNSCH PRN IV 06/15/17 07:00 Sodium Phosphate 30 mmol/Sodium Chloride 250 ml @ 42 mls/hr UNSCH PRN IV 06/15/17 07:00 (Geodon Inj) 10 mg Q12H PRN IM 06/15/17 07:15 06/19/17 10:24 (Nutrisource Fiber Powder) 2 pack BID G-TUBE 06/15/17 09:00 06/23/17 09:00 (Catapres) 0.3 mg Q8HR PO 06/18/17 14:00 Future Hold 06/22/17 20:49 (Tenex) 2 mg Q12HR PO 06/19/17 14:00 Future Hold 06/23/17 09:59 (Imodium Liq) 2 mg UNSCH PRN PO 06/19/17 17:45 Future Hold (Lopressor) 50 mg Q12HR PO 06/21/17 11:00 Future Hold 06/22/17 21:18 Fentanyl Citrate 250 ml @ 5 mls/hr TITRATE PRN IV 06/21/17 15:45 06/22/17 23:48 (Lactulose Liq) 30 ml TID PO 06/22/17 13:00 Future Hold 06/23/17 13:39 Lactated Ringer's 1,000 ml @ 84 mls/hr [id number] IV 06/23/17 04:15 06/24/17 23:29 (Senna Liq) 8.8 mg DAILY PO 06/23/17 09:00 06/25/17 09:45 (D50w (Vial) Inj) 50 ml UNSCH PRN IV PUSH 06/23/17 07:30 (Glucagon Inj) 1 mg UNSCH PRN OTHER 06/23/17 07:30 (NovoLIN R SUPPLEMENTAL SCALE) 1 Q4H SQ 06/23/17 07:30 06/23/17 15:30 (Zofran Inj) 4 mg Q8HR PRN IV PUSH 06/23/17 16:00 (Pepcid Inj) 20 mg Q12H IV PUSH 06/23/17 23:00 06/24/17 23:28 Piperacillin Sod/ Tazobactam Sod 100 ml @ 200 mls/hr Q6H IV 06/24/17 14:00 06/25/17 09:46 Lines PIV Past Medical History COPD Hypertension Hyperlipidemia CVA Schizoaffective disorder Bipolar disorder GERD Acute renal failure Arthritis Alcohol withdrawal seizures Past Surgical History Left partial pneumonectomy Left hip surgery Allergies: Coded Allergies: hydrochlorothiazide (Unverified Allergy, Intermediate, EFFECTS HIS SODIUM LEVEL, 02/12/17) PT STATES HE IS NOT ALLERGIC codeine (Unverified Adverse Reaction, Severe, 02/12/17) PT STATES HE IS NOT ALLERGIC Objective . Vital Signs Date Time Temp Pulse Resp B/P (MAP) Pulse Ox O2 Delivery O2 Flow Rate FiO2 06/25/17 06:00 60 06/25/17 04:38 100 50 06/25/17 04:00 99.7 64 22 117/70 (86) 94 06/25/17 04:00 64 06/25/17 04:00 50 06/25/17 02:00 64 06/25/17 00:27 97 50 06/25/17 00:00 64 06/25/17 00:00 50 06/25/17 00:00 99.4 64 20 113/64 (80) 96 06/24/17 22:00 67 06/24/17 21:01 97 50 06/24/17 20:00 59 06/24/17 20:00 50 06/24/17 20:00 99.0 59 19 124/75 (91) 96 06/24/17 18:02 96 50 06/24/17 18:00 62 06/24/17 17:06 66 24 118/72 (87) 97 06/24/17 17:00 65 47 96 06/24/17 16:45 64 17 120/77 (91) 96 06/24/17 16:30 64 22 120/74 (89) 96 06/24/17 16:15 64 20 118/74 (89) 95 06/24/17 16:00 99.0 63 18 112/68 (83) 95 06/24/17 16:00 63 06/24/17 16:00 50 06/24/17 15:45 66 19 122/77 (92) 95 06/24/17 15:30 64 18 115/72 (86) 94 06/24/17 15:15 65 18 112/71 (85) 94 06/24/17 15:00 65 19 114/69 (84) 96 06/24/17 14:49 71 22 144/80 (101) 96 06/24/17 14:30 65 20 115/72 (86) 94 06/24/17 14:28 95 50 06/24/17 14:15 65 19 118/71 (87) 94 06/24/17 14:00 68 06/24/17 14:00 68 19 132/80 (97) 95 06/24/17 13:45 64 19 116/75 (89) 95 06/24/17 13:30 67 19 119/75 (90) 94 06/24/17 13:15 67 21 117/75 (89) 94 06/24/17 13:00 66 19 109/70 (83) 93 06/24/17 12:45 71 27 111/70 (84) 92 06/24/17 12:30 71 24 117/74 (88) 92 06/24/17 12:15 72 20 115/75 (88) 92 06/24/17 12:00 100.7 75 29 114/74 (87) 90 06/24/17 12:00 75 06/24/17 12:00 50 . Laboratory Tests Test 06/24/17 06:15 White Blood Count 8.7 TH/MM3 Red Blood Count 3.75 MIL/MM3 Hemoglobin 11.1 GM/DL Hematocrit 33.4 % Mean Corpuscular Volume 89.1 FL Mean Corpuscular Hemoglobin 29.5 PG Mean Corpuscular Hemoglobin Concent 33.1 % Red Cell Distribution Width 14.3 % Platelet Count 185 TH/MM3 Mean Platelet Volume 7.7 FL Neutrophils (%) (Auto) 90.7 % Lymphocytes (%) (Auto) 5.8 % Monocytes (%) (Auto) 2.7 % Eosinophils (%) (Auto) 0.7 % Basophils (%) (Auto) 0.1 % Neutrophils # (Auto) 7.9 TH/MM3 Lymphocytes # (Auto) 0.5 TH/MM3 Monocytes # (Auto) 0.2 TH/MM3 Eosinophils # (Auto) 0.1 TH/MM3 Basophils # (Auto) 0.0 TH/MM3 CBC Comment DIFF FINAL Differential Comment Laboratory Tests Test 06/23/17 23:19 06/24/17 06:15 Lactic Acid Level 1.4 mmol/L 1.6 mmol/L Blood Urea Nitrogen 25 MG/DL Creatinine 0.71 MG/DL Random Glucose 123 MG/DL Total Protein 5.8 GM/DL Albumin 2.1 GM/DL Calcium Level 8.2 MG/DL Phosphorus Level 2.3 MG/DL Magnesium Level 2.2 MG/DL Alkaline Phosphatase 73 U/L Aspartate Amino Transf (AST/SGOT) 14 U/L Alanine Aminotransferase (ALT/SGPT) 27 U/L Total Bilirubin 0.9 MG/DL Sodium Level 138 MEQ/L Potassium Level 3.8 MEQ/L Chloride Level 104 MEQ/L Carbon Dioxide Level 25.4 MEQ/L Anion Gap 9 MEQ/L Estimat Glomerular Filtration Rate 113 ML/MIN Imaging Abdomen X-Ray 06/24/17 0600 Signed Impressions: Service Date/Time: Saturday, June 24, 2017 03:14 - CONCLUSION: Dilated transverse colon and no definite pneumatosis intestinalis or technique, however the patient's prior CT examination was suggestive of pneumatosis. Domingo Pollack MD Chest X-Ray 06/24/17 0000 Signed Impressions: Service Date/Time: Saturday, June 24, 2017 03:08 - CONCLUSION: Bibasilar atelectasis and/or infiltrate is seen. Domingo Pollack MD Chest X-Ray 06/23/17 0000 Signed Impressions: Service Date/Time: Friday, June 23, 2017 03:45 - CONCLUSION: No significant interval change Arvind Hernandez MD CT Angiography 06/23/17 0000 Signed Impressions: Service Date/Time: Friday, June 23, 2017 20:34 - CONCLUSION: 1. No evidence of pulmonary embolus. 2. Increased patchy bilateral pulmonary consolidation with mild thin-walled cavitation of focal consolidation in the right upper lobe. This finding could be related consolidation of an area of long with emphysema involvement. 3. Mild to moderate upper lobe pulmonary parenchymal emphysema is seen. Rosas Rowell MD Abdomen/Pelvis CT 06/23/17 0000 Signed Impressions: Service Date/Time: Friday, June 23, 2017 20:34 - CONCLUSION: 1. Bowel wall pneumatosis involving the cecum and proximal transverse colon. Findings are suspicious for ischemic colitis. Surrounding inflammatory change in the intra-abdominal fat. No portal venous gas or free air identified. 2. Prominent bilateral lower lobe pulmonary consolidation. Rosas Rowell MD Abdomen X-Ray 06/23/17 0000 Signed Impressions: Service Date/Time: Friday, June 23, 2017 03:51 - CONCLUSION: Diffuse mild gaseous distention of bowel Arvind Hernandez MD Chest X-Ray 06/23/17 Signed Impressions: Service Date/Time: Friday, June 23, 2017 03:45 - CONCLUSION: No significant interval change Arvind Hernandez MD Abdomen X-Ray 06/23/17 Signed Impressions: Service Date/Time: Friday, June 23, 2017 03:51 - CONCLUSION: Diffuse mild gaseous distention of bowel Arvind Hernandez MD Brain MRI 06/22/17 0000 Signed Impressions: Service Date/Time: Thursday, June 22, 2017 12:10 - CONCLUSION: All ischemic changes, negative for acute ischemic event. Negative for parenchymal hemorrhage. Usman Pimentel MD FACR Abdomen/Pelvis CT 06/14/17 0000 Signed Impressions: Service Date/Time: Wednesday, June 14, 2017 22:32 - CONCLUSION: 1. Increasing basilar lung consolidation since chest CT from June 04. 2. Mild ileus. No bowel obstruction, free air or free fluid. 3. Left hip replacement. Advanced osteoarthritis right hip. NG in stomach. Rectal tube present. Humphrey Weston MD Head CT 06/04/17 Signed Impressions: Service Date/Time: Sunday, June 04, 2017 18:46 - CONCLUSION: 1. No significant change compared to 06/03/17. 2. No acute infarct, acute hemorrhage , mass effect or extra-axial fluid collection. 3. Scattered old lacunar infarcts within the bilateral basal ganglia. 4. Mild periventricular and subcortical white matter small vessel ischemic changes bilaterally. 5. Old right posterior parietal infarct. 6. Chronic opacification of right mastoid air cells. Mckay Stone MD Chest CT 06/04/17 0000 Signed Impressions: Service Date/Time: Sunday, June 04, 2017 18:49 - CONCLUSION: 1. Right mid lung field and posterior bibasilar patchiness consistent with probable areas of pneumonia and/or atelectasis. Clinical correlation is recommended. 2. Tiny bilateral pleural effusions. 3. Cardiomegaly and coronary artery calcifications. 4. Minimal scattered emphysematous changes bilaterally. Mckay Stone MD Physical Exam GENERAL: Opens eyes, focusing, on the vent, NAD SKIN: Cool, dry. No jaundice, rashes, or lesions. EYES: Pupils equal and round and reactive. Extraocular motions intact. No scleral icterus. No injection or drainage. NECK: trach in place , site ok CARDIOVASCULAR: Regular rate and rhythm without murmurs, gallops, or rubs. No JVD. Peripheral pulses symmetric. RESPIRATORY/CHEST: Symmetric, unlabored respirations. Clear to auscultation. Breath sounds equal bilaterally. No wheezes, rales, or rhonchi. GASTROINTESTINAL: Abdomen, less distendedm mild tenderness, not guarding, BS hypoactive. GENITOURINARY: Without palpable bladder distension. condom catheter in place with clear yellow MUSCULOSKELETAL: Extremities without clubbing, cyanosis, or edema. No joint tenderness or effusion noted. No calf tenderness. No mottling or clubbing. NEUROLOGICAL: moves all 4 extremities, awake, alert, follows commands PSYCHIATRIC: unable to assess LINE: No evidence of infection Assessment & Plan Remarks IMPRESSION Mental status change, PNA, E.coli Acute VDRF, failure to wean Multiple med problems Leukocytosis, better Abdominal distention, diarrhea - C.diff negative - likely ischemic colitis C glabrata sepsis HCAP PNA (PSAE in spurtu) PLAN Continue Micafungin, anticipate 14 days Follow C/S Continue Zosyn to cover both PSAE and intraabd aerobic/anaerobic tamara Follow temps Monitor progress Karey Ayala MD Jun 25, 2017 12:10
[2017-06-25] MEDS: MICAFUNGIN INJ 150 MG in SODIUM CHLORIDE 0.9% INJ 100 ML IV SCH (12:33)
[2017-06-25] MEDS: FAMOTIDINE 20 MG/2 ML VIAL IV PUSH SCH ×2 (12:34→22:32)
--- NOTE | 2017-06-25 13:00 | HHI.PR ---
cc: Pedro Luis Monroe MD Subjective Subjective Notes Resting in bed on MV via trach Objective Vitals/I&O Vital Signs Date Time Temp Pulse Resp B/P (MAP) Pulse Ox O2 Delivery O2 Flow Rate FiO2 06/25/17 06:00 60 06/25/17 04:38 100 50 06/25/17 04:00 99.7 22 117/70 (86) Labs Date/Time Source Procedure Growth Status 06/19/17 01:35 Blood Peripheral Aerobic Blood Culture - Final NO GROWTH IN 5 DAYS Complete 06/19/17 01:35 Blood Peripheral Anaerobic Blood Culture - Final NO GROWTH IN 5 DAYS Complete 06/21/17 13:30 Sputum Expectorated Sputum Gram Stain - Final Complete 06/21/17 13:30 Sputum Culture - Final Escherichia Coli Pseudomonas Aeruginosa Complete 06/10/17 12:45 Urine Catheterized Urine Urine Culture - Final NO GROWTH IN 48 HOURS. Complete Cardiovascular: Regular Lungs: Clear Abdomen: Other (soft; mildly distended; mild grimace with palpation ) Extremities: Other (mild generalized edema ) A/P Assessment and Plan 61 year old male with AMS; VDRF s/p trach placement; abdominal distension---CT Abdomen/Pelvis shows pneumatosis -Continue hydration -Continue to monitor for fevers -Zosyn -CBC/BMP in AM -KUB in AM Attending Statement Wants water/ ice chips. Abdomen softer, less distended, very mild tenderness if any to deep palpation. CBC, KUB in am. NO sign of peritonitis. The exam, history, and the medical decision-making described in the above note were completed with the assistance of the mid-level provider. I reviewed and agree with the findings presented. I attest that I had a [id number] encounter with the patient on the same day, and personally performed and documented my assessment and findings in the medical record. Jojo Renteria Jun 25, 2017 13:00 Pedro Luis Monroe MD Jun 25, 2017 19:24
--- NOTE | 2017-06-25 17:14 | HHI.PR ---
Subjective Remarks 61 YOWM with VDRF,Trach,COPD did't tolerate CPAP Sedated with Fentanyl and Precedex No Fever Awake follows commands Seen by surgery, no need for surgery. Feels hungry, wants a drink Objective Vital Signs Vital Signs Date Time Temp Pulse Resp B/P (MAP) Pulse Ox O2 Delivery O2 Flow Rate FiO2 06/25/17 15:48 98 40 06/25/17 14:00 63 06/25/17 13:09 100 50 06/25/17 12:00 59 06/25/17 12:00 99.0 59 18 118/70 (86) 98 06/25/17 12:00 50 06/25/17 10:00 65 06/25/17 08:00 61 06/25/17 08:00 50 06/25/17 08:00 99.2 61 19 104/65 (78) 97 06/25/17 06:00 60 06/25/17 04:38 100 50 06/25/17 04:00 99.7 64 22 117/70 (86) 94 06/25/17 04:00 64 06/25/17 04:00 50 06/25/17 02:00 64 06/25/17 00:27 97 50 06/25/17 00:00 64 06/25/17 00:00 50 06/25/17 00:00 99.4 64 20 113/64 (80) 96 06/24/17 22:00 67 06/24/17 21:01 97 50 06/24/17 20:00 59 06/24/17 20:00 50 06/24/17 20:00 99.0 59 19 124/75 (91) 96 06/24/17 18:02 96 50 06/24/17 18:00 62 I/O 06/24/17 06/24/17 06/24/17 06/25/17 06/25/17 06/25/17 07:00 15:00 23:00 07:00 15:00 23:00 Intake Total 100 ml 1350 ml 1088 ml 1450 ml 300 ml Output Total 550 ml 850 ml 1300 ml Balance -450 ml 1350 ml 238 ml 150 ml 300 ml IV Total 100 ml 1350 ml 1088 ml 1450 ml 300 ml Tube Feeding 0 ml Other 0 ml 0 ml Output Urine Total 550 ml 350 ml 800 ml Gastric Drainage Total 500 ml 500 ml # Voids 2 # Bowel Movements 1 0 0 Result Diagram: 06/24/1761406/24/17614 Objective Remarks GENERAL: MBMN WM, on Vent, sedated SKIN: Warm and dry. HEAD: Normocephalic. EYES: No scleral icterus. No injection or drainage. NECK: Supple, trachea midline. No JVD or lymphadenopathy. CARDIOVASCULAR: Regular rate and rhythm without murmurs, gallops, or rubs. RESPIRATORY: Breath sounds equal bilaterally. No accessory muscle use. GASTROINTESTINAL: Abdomen soft, non-tender, nondistended. MUSCULOSKELETAL: No cyanosis, or edema. BACK: Nontender without obvious deformity. No CVA tenderness. A/P Assessment and Plan VDRF S/P Trach COPD COPD Schzoaffective disorder Bipolar disorder PLAN: Vent Support Cont Abx Sputum culture Sedation with Fentanyl and Precedex Syed Cuellar MD Jun 25, 2017 17:14
--- NOTE | 2017-06-25 17:37 | HHI.CCPN ---
Subjective Remarks/Hospital Course 06/04: Mr. Reilly is a 61-year-old male with a history of COPD, hypertension, hyperlipidemia, CVA, schizoaffective disorder, bipolar disorder, GERD, renal failure, and arthritis who presented to the emergency room on 06/03/2017 from a [facility] for evaluation of altered mental status. Upon review of the medical records from the [facility] facility, it is noted he had a right lower lobe pneumonia diagnosed mid May. Head CT showed no acute infarct, acute hemorrhage, mass effect, or extra-axial fluid collection but scattered old lacunar infarcts within the bilateral basal ganglia. Mild periventricular and subcortical white matter small vessel ischemic changes bilaterally. Chest x-ray shows scattered bibasilar patchiness consistent with possible pneumonia. Per documentation : While in the ER, patient was in moderate respiratory distress with tachypnea and utilization of accessory abdominal muscles to breathe. His lung sounds are bilaterally congested and he is confused and a poor historian. His speech is slightly slurred but this is not a new finding. He was noted to be on 5 L nasal cannula with oxygen saturation of 94% in the emergency room. Patient was admitted to the ICU by the hospitalist service. He was initiated on heparin drip for suspicion of PE. He was also noted to have an elevated CPK and creatinine. His blood pressures were running high overnight. This afternoon patient developed worsening agitation and disorientation and confusion. His heparin was stopped earlier by Dr. Garcia due to low suspicion for PE. Patient developed worsening respiration status with respirations in the 30s and O2 sats in the mid 80s. Critical care medicine was consulted. Patient was emergently intubated by Dr. Elvira Gutierrez and I subsequently took over patient care. When I evaluated the patient he had been sedated for the intubation and is being placed on mechanical ventilation. History was obtained by discussion with Dr. Garcia, Dr. Gutierrez and ICU nursing staff as well as documentation in the chart. 06/05: Remains sedated, orally intubated on mechanical ventilation. 06/06: Sedated, orally intubated on mechanical ventilation. Failed C Pap trial today. Got extremely anxious on lightening sedation. 06/07 No events overnight. Sedated and intubated. Afebrile. 06/08 No events overnight. Sedated with Diprivan, Fentanyl and intubated. 06/09 Patient remains sedated and intubated. Afebrile.Did not tolerate CPAP trials yesterday. 06/10 Patient is sedated with Fentanyl and Diprivan. Afebrile. Did not tolerate CPAP yesterday as he became restless, agitated and tachycardic. 06/11 Patient remains sedated and intubated. Spiked fever with Tmax 101.1 06/12 No events overnight. Sedated and intubated. Afebrile. 06/13 Patient remains intubated and sedated with Diprivan, fentanyl in addition he is on Precedex drip. T:100.0 06/14 Patient remains sedated and intubated. Afebrile. Did not tolerate CPAP trials yesterday as he became tahypenic, tachycardic and restless. 06/15: agitation persists. respiratory failure persists. severely volume overloaded. has been intubated for almost 2 weeks. may require trach. CT abd/ pelvis without overt acute disease. no other source for fungemia. 06/16: s/p trach yesterday. no significant changes. 06/17: plan for PEG today. agitation persists with significant delirium. no other significant changes. 06/18: s/p PEG placement. weaning off sedation. still failing cpap trials. 06/19: cannot wean off precedex: agitated delirium persists. also still failing cpap trials. 06/20 No events overnight. On Precedex drip for agitation. T: 100.1 last night. 06/21 No events overnight. Remains on Precedex drip. Afebrile. 06/22 Patient is sedated with Fentanyl and Precedex. Afebrile. For MRI brain today. 06/23 Patient became hypotensive overnight and had episode of desaturation with says in mid 80's. Given 500ml 5% Albumin now off sedation ( Fentanyl and Precedex held). BP is better. In addition he was given Dulcolax suppos. and Mg citrate now having BM's. KUB this morning showed diffuse mild gaseous distention of bowel. FIO2 requirements is better now on 50% FIO2 with PEEP: 10 from FIO2 75 % overnight. CXR unchanged ( Consolidation LLL and Atelectasis right lung base) . T:99.9 06/24: Remains on mechanical ventilation via tracheostomy. CT abdomen pelvis done on 06/23 revealed pneumatosis involving cecum and transverse colon suggesting ischemic colitis. Gen. surgery consulted and patient evaluated by Dr. Monroe today who recommends medical management at this time with IV fluids and continuation of antibiotics. Patient not tolerating tube feeds and has abdominal distention. Maintaining blood pressure currently. 06/25: Remains on mechanical ventilation via tracheostomy. Does not appear to be in any acute distress. Still nothing by mouth. Being followed by general surgery for pneumatosis involving cecum and transverse colon. Objective Vital Signs Date Time Temp Pulse Resp B/P (MAP) Pulse Ox O2 Delivery O2 Flow Rate FiO2 06/25/17 15:48 98 40 06/25/17 14:00 63 06/25/17 12:00 99.0 18 118/70 (86) Intake and Output 06/25/17 06/25/17 06/26/17 08:00 16:00 00:00 Intake Total 450 ml 300 ml Output Total 1300 ml Balance -850 ml 300 ml Result Diagram: 06/24/17 0615 06/24/17 0615 Imaging Last 48 hours Impressions Abdomen X-Ray 06/24/17 0600 Signed Impressions: Service Date/Time: Saturday, June 24, 2017 03:14 - CONCLUSION: Dilated transverse colon and no definite pneumatosis intestinalis or technique, however the patient's prior CT examination was suggestive of pneumatosis. Domingo Pollack MD Chest X-Ray 06/24/17 0000 Signed Impressions: Service Date/Time: Saturday, June 24, 2017 03:08 - CONCLUSION: Bibasilar atelectasis and/or infiltrate is seen. Domingo Pollack MD Chest X-Ray 06/23/17 0000 Signed Impressions: Service Date/Time: Friday, June 23, 2017 03:45 - CONCLUSION: No significant interval change Arvind Hernandez MD CT Angiography 06/23/17 0000 Signed Impressions: Service Date/Time: Friday, June 23, 2017 20:34 - CONCLUSION: 1. No evidence of pulmonary embolus. 2. Increased patchy bilateral pulmonary consolidation with mild thin-walled cavitation of focal consolidation in the right upper lobe. This finding could be related consolidation of an area of long with emphysema involvement. 3. Mild to moderate upper lobe pulmonary parenchymal emphysema is seen. Rosas Rowell MD Abdomen/Pelvis CT 06/23/17 0000 Signed Impressions: Service Date/Time: Friday, June 23, 2017 20:34 - CONCLUSION: 1. Bowel wall pneumatosis involving the cecum and proximal transverse colon. Findings are suspicious for ischemic colitis. Surrounding inflammatory change in the intra-abdominal fat. No portal venous gas or free air identified. 2. Prominent bilateral lower lobe pulmonary consolidation. Rosas Rowell MD Abdomen X-Ray 06/23/17 0000 Signed Impressions: Service Date/Time: Friday, June 23, 2017 03:51 - CONCLUSION: Diffuse mild gaseous distention of bowel Arvind Hernandez MD Last Impressions Chest X-Ray 06/23/17 0000 Signed Impressions: Service Date/Time: Friday, June 23, 2017 03:45 - CONCLUSION: No significant interval change Arvind Hernandez MD Abdomen X-Ray 06/23/17 0000 Signed Impressions: Service Date/Time: Friday, June 23, 2017 03:51 - CONCLUSION: Diffuse mild gaseous distention of bowel Arvind Hernandez MD Brain MRI 06/22/17 0000 Signed Impressions: Service Date/Time: Thursday, June 22, 2017 12:10 - CONCLUSION: All ischemic changes, negative for acute ischemic event. Negative for parenchymal hemorrhage. Usman Pimentel MD FACR Abdomen/Pelvis CT 06/14/17 0000 Signed Impressions: Service Date/Time: Wednesday, June 14, 2017 22:32 - CONCLUSION: 1. Increasing basilar lung consolidation since chest CT from June 04. 2. Mild ileus. No bowel obstruction, free air or free fluid. 3. Left hip replacement. Advanced osteoarthritis right hip. NG in stomach. Rectal tube present. Humphrey Weston MD Head CT 06/04/17 0000 Signed Impressions: Service Date/Time: Sunday, June 04, 2017 18:46 - CONCLUSION: 1. No significant change compared to 06/03/17. 2. No acute infarct, acute hemorrhage , mass effect or extra-axial fluid collection. 3. Scattered old lacunar infarcts within the bilateral basal ganglia. 4. Mild periventricular and subcortical white matter small vessel ischemic changes bilaterally. 5. Old right posterior parietal infarct. 6. Chronic opacification of right mastoid air cells. Mckay Stone MD Chest CT 06/04/17 0000 Signed Impressions: Service Date/Time: Sunday, June 04, 2017 18:49 - CONCLUSION: 1. Right mid lung field and posterior bibasilar patchiness consistent with probable areas of pneumonia and/or atelectasis. Clinical correlation is recommended. 2. Tiny bilateral pleural effusions. 3. Cardiomegaly and coronary artery calcifications. 4. Minimal scattered emphysematous changes bilaterally. Mckay Stone MD Objective Remarks GENERAL: Patient is 61 yo on ventilator via trach. SKIN: Warm and dry. HEAD: Normocephalic. EYES: No scleral icterus. No injection or drainage. NECK: Supple, trachea midline. No JVD or lymphadenopathy. + Trach CARDIOVASCULAR: Regular rate and rhythm without murmurs, gallops, or rubs. RESPIRATORY: Breath sounds equal bilaterally.Coarse BS GASTROINTESTINAL: Abdomen soft, non-tender, distended, bowel sounds sluggish MUSCULOSKELETAL: No cyanosis, or edema. Neuro: Off sedation, follows simple commands intermittently. A/P Assessment and Plan Assessment: 61yM with history of schizoaffective d/o and bipolar d/o who presented with acute hypoxic respiratory failure and now fungemia without overt source. Not improving on pathway. No meaningful improvements over last 2 weeks. s/p trach 06/15 and PEG 06/17. remains off pathway. needs long-term acute care level of rehabilitation. agitation still the biggest barrier to successful weaning. Plan: Neuro: Acute Metabolic Encephalopathy Agitated Delirium - persistent. Schizoaffective disorder/bipolar disorder History of alcohol abuse History of CVA Fentanyl and Precedex currently on hold. Monitor neuro status MRI brain 06/22: No acute ischemic events, no hemorrhage On Lactulose level 30ml TID, Ammonia level slightly elevated 42. EEG showed mod. encephalopathy Neuro is following. Dr. Wayne Cheatham 10mg IM q12h prn for agitation continue Aricept and Cogentin clonidine to 0.3mg po q8h guanfacine 2mg po q12h CV: Uncontrolled hypertension - improving. hyperlipidemia Monitor HR and BP keep MAP>65mmHg Hold antihypertensive meds ( Norvasc 5mg daily, clonidine 0.3mg po q8h, Lopressor 50mg Q12) 2-D echo with normal LV/RV function Pulmo: Acute respiratory failure requiring mechanical ventilation - persistent. COPD exacerbation Resolving community acquired pneumonia Intubated and placed on mechanical ventilation on 06/04. Continue with vent support keep sat >92%. Vent bundle, bronchodilators, on prednisone taper. On PRVC Decrease FIO2 as cordell. CTA chest negative for PE. trach 06/[address] Sapp/[facility] GI/liver: GERD Acute protein calorie malnutrition- severe 06/23 KUB abdomen: Mild gaseous distention of bowel Ct abd/pelvis 06/23: Pneumatosis involving cecum and transverse colon concerning for ischemia. C. Diff negative Continue with bowel regimen- On Lactulose 30ml TID, Senna daily. Given Mag citrate and Dulcolax overnight- having BM's. Currently nothing by mouth till cleared by surgery who was following patient for ischemic colitis. Renal/: ROSENDO/ CKD - resolved. Rhabdomyolysis - resolved. Acute intravascular volume overload- resolved. Metabolic alkalosis- resolving. Monitor renal function, electrolytes replacement per protocol. on LR@84ml/hr ID: Fungemia Community Acquired Pneumonia- resolved. Ischemic colitis Sepsis continue abx per ID- on micafungin: plan for 14 days after 1st negative blood culture. Continue Zosyn, Levaquin CT abdomen pelvis on 06/23 shows pneumatosis involving cecum and transverse colon consistent with ischemic colitis. Patient evaluated by general surgery Dr. Monroe who at this time recommends continuing IV fluids and antibiotics and he will be available for surgery if patient develops evidence of peritonitis or worsens clinically. ID is following Sputum cx: E.coli on 06/04, sputum 06/10: normal resp tamara BC 06/14, 06/19 : NGTD, Sputum cx 06/21: E.coli, Pseudomonas Endocrine: Hyperglycemia of critical illness SSI medium scale, q4h Heme: Anemia secondary to chronic disease Monitor CBC. Prophylaxis: Pepcid/SCDs. SQ Lovenox Lines: PIV Level 3 Dejuan Bermudez MD Jun 25, 2017 17:37
[2017-06-25] MEDS: LACTATED RINGER'S 1000 ML INJ 1,000 ML IV SCH (18:54)
[2017-06-25] MEDS: HYDROmorphone HCL PF 2 MG/ML VIAL IV PRN (22:33)
[2017-06-26] VITALS (26 sets, daily range): BP systolic 127–171; BP diastolic 72–89; PULSE 52–79; RESP 14–34; TEMP 97.9–99.3; O2SAT 93–99
[2017-06-26] MEDS: PIPERACIL-TAZO 4.5 GM PREMIX 100 ML IV SCH ×4 (00:50→20:21)
[2017-06-26] MEDS: INSULIN NovoLIN REGULAR SUPPLEMENTAL SCALE SQ SCH ×6 (03:05→23:30)
[2017-06-26] MEDS: CHLORHEXIDINE GLUCONATE 2 % 1 PACK (2 CLOTHS) TOP SCH (03:29)
[2017-06-26] MEDS: LACTATED RINGER'S 1000 ML INJ 1,000 ML IV SCH ×2 (03:29→16:00)
--- NOTE | 2017-06-26 04:00 | RADRPT ---
EXAM DATE/TIME: 06/26/2017 03:18 [facility] COMPARISON: ABDOMEN KUB ONLY, June 24, 2017, 3:14. INDICATIONS : Distention, abdominal pain. MEDICAL HISTORY : None. SURGICAL HISTORY : None. ENCOUNTER: Subsequent ACUITY: 3 weeks PAIN SCORE: 0/10 LOCATION: Bilateral abdomen FINDINGS: No definite free air is identified for technique. Again noted is distended loop of transverse colon m easures almost 7.4 cm not significantly changed. No definite signs of pneumatosis intestinalis for [place]. CONCLUSION: No visible change in dilated loop of transverse colon. Domingo Pollack MD on June 26, 2017 at 3:57 Board Certified Radiologist. This report was verified electronically.
[2017-06-26 05:52] LABS: AUTOMATED NEUTROPHIL # 6.1 TH/MM3 (1.8-7.7); BASOPHIL % 0.3 % (0.0-2.0); EOSINOPHIL # 0.2 TH/MM3 (0-0.4); EOSINOPHIL % 2.3 % (0.0-4.0); HEMATOCRIT 28.5 % (39.0-51.0); HEMOGLOBIN 9.6 GM/DL (13.0-17.0); LYMPH % 8.4 % (9.0-44.0); LYMPHOCYTE # 0.6 TH/MM3 (1.0-4.8); MEAN CELL VOLUME 88.2 FL (80.0-100.0); MEAN CORPUSCULAR HEMOGLOBIN 29.5 PG (27.0-34.0); MEAN CORPUSCULAR HGB CONC 33.5 % (32.0-36.0); MEAN PLATELET VOLUME 7.6 FL (7.0-11.0); MONO % 4.6 % (0.0-8.0); MONOCYTE # 0.3 TH/MM3 (0-0.9); NEUT % 84.4 % (16.0-70.0); PLATELET COUNT 216 TH/MM3 (150-450); RED BLOOD COUNT 3.24 MIL/MM3 (4.50-5.90); RED CELL DISTRIBUTION WIDTH 14.5 % (11.6-17.2); WHITE BLOOD COUNT 7.2 TH/MM3 (4.0-11.0)
[2017-06-26] MEDS: DEXMEDETOMIDINE INJ 1,000 MCG in SODIUM CHLOR 0.9% 250 ML INJ 240 ML IV PRN ×2 (05:56→20:22)
[2017-06-26 06:13] LABS: CALCIUM 7.8 MG/DL (8.5-10.1); CREATININE 0.46 MG/DL (0.60-1.30)
[2017-06-26] MEDS: CHLORHEXIDINE 0.12% (ORAL KIT) 15 ML CUP MT SCH ×2 (08:15→20:21)
[2017-06-26] MEDS: SENNOSIDES SYRUP 8.8 MG/5 ML CUP PO SCH ×2 (08:16→09:00)
[2017-06-26] MEDS: SODIUM CHLORIDE 0.9% FLUSH 10 ML FLUSH IV FLUSH SCH ×2 (08:16→20:21)
[2017-06-26] MEDS: NUTRISOURCE FIBER POWDER 1 PACK G-TUBE SCH ×3 (08:16→20:32)
[2017-06-26] MEDS ORDERED: BISACODYL 10 MG SUPP RECTAL ONE (08:30)
[2017-06-26] MEDS: FAMOTIDINE 20 MG/2 ML VIAL IV PUSH SCH ×2 (10:46→23:00)
[2017-06-26] MEDS: HYDROmorphone HCL PF 2 MG/ML VIAL IV PRN (10:46)
--- NOTE | 2017-06-26 13:11 | HHI.IDPN ---
Subjective Subjective Remarks ID COVERAGE 61-year-old male with a history of COPD, hypertension, hyperlipidemia, CVA, schizoaffective disorder, bipolar disorder, GERD, renal failure, and arthritis presented to the emergency room on 06/03/2017 from a intermediate facilitywith altered mental status. H/o right lower lobe pneumonia in mid May. Head CT w/o acute findings Chest x-ray shows consistent with possible pneumonia. Has been intubated. Has been on vent and now S/P trach 06/15 Also with PEG Notes reviewed Has occ low grade temps On CPAP PEG to drainage BP ok CT showed pneumotosis coli Has diarrhea WBC lower Seen by gen surgeon, med mgnt recommended Antibiotics Micafungin Zosyn Current Medications Medications (Trade) Dose Ordered Sig/Solange Route Start Time Stop Time Status Last Admin (Narcan Inj) 0.4 mg UNSCH PRN IV PUSH 06/03/17 21:45 (Duoneb Neb) 1 ampule Q2HR NEB PRN NEB 06/03/17 22:45 06/23/17 20:13 (Lipitor) 40 mg HS PO 06/04/17 21:00 Future Hold 06/22/17 20:49 (Cogentin) 1 mg HS PO 06/04/17 21:00 Future Hold 06/22/17 20:49 (Aricept) 5 mg HS PO 06/04/17 21:00 Future Hold 06/22/17 21:18 (risperDAL) 1 mg HS PO 06/04/17 21:00 Future Hold 06/22/17 20:49 (Flomax) 0.4 mg HS PO 06/04/17 21:00 Future Hold 06/22/17 20:49 (Effexor Xr) 150 mg DAILY PO 06/04/17 09:00 Future Hold 06/23/17 09:59 Miscellaneous Information 1 Q361D XX 06/04/17 03:45 (Chlorhexidine 2% Cloth) 3 pack Taper DAILY@04 TOP 06/04/17 04:00 05/31/18 03:59 06/26/17 03:29 (Chlorhexidine 2% Cloth) 3 pack UNSCH PRN TOP 06/04/17 03:45 (Norvasc) 5 mg DAILY PO 06/04/17 12:00 Future Hold 06/22/17 08:21 (Apresoline Inj) 10 mg Q4H PRN IV PUSH 06/04/17 13:00 06/20/17 22:23 (NS Flush) 2 ml UNSCH PRN IV FLUSH 06/04/17 16:45 (NS Flush) 2 ml BID IV FLUSH 06/04/17 21:00 06/26/17 08:16 (Peridex 0.12% Liq) 15 ml BID@08,20 MT 06/04/17 20:00 06/26/17 08:15 (Trandate Inj) 20 mg Q4H PRN IV PUSH 06/04/17 17:00 06/10/17 15:35 (Lovenox Inj) 40 mg Q24H SQ 06/05/17 17:00 Future Hold 06/16/17 15:33 Dexmedetomidine HCl 1000 mcg/ Sodium Chloride 250 ml @ 4.95 mls/hr TITRATE PRN IV 06/10/17 09:30 06/26/17 05:56 (Tylenol) 650 mg Q4H PRN PO 06/10/17 12:15 Future Hold 06/23/17 02:33 (Pepcid) 20 mg Q12HR PO 06/10/17 21:00 Future Hold 06/23/17 09:58 Micafungin Sodium 150 mg/Sodium Chloride 100 ml @ 100 mls/hr Q24H IV 06/14/17 14:00 06/27/17 23:00 06/25/17 12:33 (Mycostatin Powder) 1 applic Q12HR PRN TOPICAL 06/14/17 11:00 (Mag-Ox) 800 mg UNSCH PRN PO 06/15/17 07:00 Magnesium Sulfate 4 gm/Sodium Chloride 100 ml @ 50 mls/hr UNSCH PRN IV 06/15/17 07:00 Magnesium Sulfate 2 gm/Sodium Chloride 100 ml @ 50 mls/hr UNSCH PRN IV 06/15/17 07:00 Potassium Chloride 100 ml @ 50 mls/hr Q2H PRN IV 06/15/17 07:00 06/17/17 18:35 Potassium Chloride 100 ml @ 50 mls/hr Q2H PRN IV 06/15/17 07:00 06/16/17 10:30 Potassium Chloride 100 ml @ 50 mls/hr Q2H PRN IV 06/15/17 07:00 Potassium Chloride 100 ml @ 25 mls/hr UNSCH PRN IV 06/15/17 07:00 (K-Phos) 2,000 mg Q4H PRN PO 06/15/17 07:00 (K-Phos) 2,000 mg UNSCH PRN PO/TUBE 06/15/17 07:00 Potassium Phosphate 30 mmol/ Sodium Chloride 260 ml @ 42 mls/hr UNSCH PRN IV 06/15/17 07:00 Sodium Phosphate 30 mmol/Sodium Chloride 250 ml @ 42 mls/hr UNSCH PRN IV 06/15/17 07:00 (Geodon Inj) 10 mg Q12H PRN IM 06/15/17 07:15 06/19/17 10:24 (Nutrisource Fiber Powder) 2 pack BID G-TUBE 06/15/17 09:00 06/26/17 08:16 (Catapres) 0.3 mg Q8HR PO 06/18/17 14:00 Future Hold 06/22/17 20:49 (Tenex) 2 mg Q12HR PO 06/19/17 14:00 Future Hold 06/23/17 09:59 (Imodium Liq) 2 mg UNSCH PRN PO 06/19/17 17:45 Future Hold (Lopressor) 50 mg Q12HR PO 06/21/17 11:00 Future Hold 06/22/17 21:18 Fentanyl Citrate 250 ml @ 5 mls/hr TITRATE PRN IV 06/21/17 15:45 06/22/17 23:48 (Lactulose Liq) 30 ml TID PO 06/22/17 13:00 Future Hold 06/23/17 13:39 Lactated Ringer's 1,000 ml @ 84 mls/hr [id number] IV 06/23/17 04:15 06/26/17 03:29 (Senna Liq) 8.8 mg DAILY PO 06/23/17 09:00 06/25/17 09:45 (D50w (Vial) Inj) 50 ml UNSCH PRN IV PUSH 06/23/17 07:30 (Glucagon Inj) 1 mg UNSCH PRN OTHER 06/23/17 07:30 (NovoLIN R SUPPLEMENTAL SCALE) 1 Q4H SQ 06/23/17 07:30 06/23/17 15:30 (Zofran Inj) 4 mg Q8HR PRN IV PUSH 06/23/17 16:00 (Pepcid Inj) 20 mg Q12H IV PUSH 06/23/17 23:00 06/26/17 10:46 Piperacillin Sod/ Tazobactam Sod 100 ml @ 200 mls/hr Q6H IV 06/24/17 14:00 06/26/17 08:16 (Dilaudid Pf Inj) 0.5 mg Q4H PRN IV 06/25/17 22:15 06/26/17 10:46 Lines PIV Past Medical History COPD Hypertension Hyperlipidemia CVA Schizoaffective disorder Bipolar disorder GERD Acute renal failure Arthritis Alcohol withdrawal seizures Past Surgical History Left partial pneumonectomy Left hip surgery Allergies: Coded Allergies: hydrochlorothiazide (Unverified Allergy, Intermediate, EFFECTS HIS SODIUM LEVEL, 02/12/17) PT STATES HE IS NOT ALLERGIC codeine (Unverified Adverse Reaction, Severe, 02/12/17) PT STATES HE IS NOT ALLERGIC Objective . Vital Signs Date Time Temp Pulse Resp B/P (MAP) Pulse Ox O2 Delivery O2 Flow Rate FiO2 06/26/17 12:39 95 40 06/26/17 10:00 60 06/26/17 10:00 60 24 142/77 (98) 06/26/17 09:30 62 21 132/76 (94) 06/26/17 09:30 62 06/26/17 09:00 64 30 140/77 (98) 06/26/17 09:00 64 06/26/17 08:33 94 40 06/26/17 08:31 68 06/26/17 08:31 68 21 139/72 (94) 93 06/26/17 08:00 98.6 79 34 171/79 (109) 94 06/26/17 08:00 40 06/26/17 08:00 79 06/26/17 06:00 60 06/26/17 04:22 95 40 06/26/17 04:00 50 06/26/17 04:00 99.0 61 17 127/73 (91) 95 06/26/17 04:00 61 06/26/17 02:00 64 06/26/17 01:09 95 40 06/26/17 00:00 65 06/26/17 00:00 99.3 65 14 139/75 (96) 99 06/26/17 00:00 50 06/25/17 22:10 99 40 06/25/17 22:00 68 06/25/17 20:00 69 06/25/17 20:00 50 06/25/17 20:00 98.6 69 22 148/71 (96) 95 06/25/17 20:00 99 40 06/25/17 18:00 68 06/25/17 16:00 50 06/25/17 16:00 100.0 67 24 136/77 (96) 89 06/25/17 16:00 67 06/25/17 15:48 98 40 06/25/17 14:00 63 . Laboratory Tests Test 06/26/17 05:39 White Blood Count 7.2 TH/MM3 Red Blood Count 3.24 MIL/MM3 Hemoglobin 9.6 GM/DL Hematocrit 28.5 % Mean Corpuscular Volume 88.2 FL Mean Corpuscular Hemoglobin 29.5 PG Mean Corpuscular Hemoglobin Concent 33.5 % Red Cell Distribution Width 14.5 % Platelet Count 216 TH/MM3 Mean Platelet Volume 7.6 FL Neutrophils (%) (Auto) 84.4 % Lymphocytes (%) (Auto) 8.4 % Monocytes (%) (Auto) 4.6 % Eosinophils (%) (Auto) 2.3 % Basophils (%) (Auto) 0.3 % Neutrophils # (Auto) 6.1 TH/MM3 Lymphocytes # (Auto) 0.6 TH/MM3 Monocytes # (Auto) 0.3 TH/MM3 Eosinophils # (Auto) 0.2 TH/MM3 Basophils # (Auto) 0.0 TH/MM3 CBC Comment DIFF FINAL Differential Comment Laboratory Tests Test 06/26/17 05:39 Blood Urea Nitrogen 12 MG/DL Creatinine 0.46 MG/DL Random Glucose 127 MG/DL Calcium Level 7.8 MG/DL Sodium Level 139 MEQ/L Potassium Level 3.5 MEQ/L Chloride Level 107 MEQ/L Carbon Dioxide Level 23.0 MEQ/L Anion Gap 9 MEQ/L Estimat Glomerular Filtration Rate 187 ML/MIN Lactic Acid Level 0.8 mmol/L Imaging Abdomen X-Ray 06/24/17 0600 Signed Impressions: Service Date/Time: Saturday, June 24, 2017 03:14 - CONCLUSION: Dilated transverse colon and no definite pneumatosis intestinalis or technique, however the patient's prior CT examination was suggestive of pneumatosis. Domingo Pollack MD Chest X-Ray 06/24/17 0000 Signed Impressions: Service Date/Time: Saturday, June 24, 2017 03:08 - CONCLUSION: Bibasilar atelectasis and/or infiltrate is seen. Domingo Pollack MD Chest X-Ray 06/23/17 0000 Signed Impressions: Service Date/Time: Friday, June 23, 2017 03:45 - CONCLUSION: No significant interval change Arvind Hernandez MD CT Angiography 06/23/17 0000 Signed Impressions: Service Date/Time: Friday, June 23, 2017 20:34 - CONCLUSION: 1. No evidence of pulmonary embolus. 2. Increased patchy bilateral pulmonary consolidation with mild thin-walled cavitation of focal consolidation in the right upper lobe. This finding could be related consolidation of an area of long with emphysema involvement. 3. Mild to moderate upper lobe pulmonary parenchymal emphysema is seen. Rosas Rowell MD Abdomen/Pelvis CT 06/23/17 0000 Signed Impressions: Service Date/Time: Friday, June 23, 2017 20:34 - CONCLUSION: 1. Bowel wall pneumatosis involving the cecum and proximal transverse colon. Findings are suspicious for ischemic colitis. Surrounding inflammatory change in the intra-abdominal fat. No portal venous gas or free air identified. 2. Prominent bilateral lower lobe pulmonary consolidation. Rosas Rowell MD Abdomen X-Ray 06/23/17 0000 Signed Impressions: Service Date/Time: Friday, June 23, 2017 03:51 - CONCLUSION: Diffuse mild gaseous distention of bowel Arvind Hernandez MD Chest X-Ray 06/23/17 0000 Signed Impressions: Service Date/Time: Friday, June 23, 2017 03:45 - CONCLUSION: No significant interval change Arvind Hernandez MD Abdomen X-Ray 06/23/17 0000 Signed Impressions: Service Date/Time: Friday, June 23, 2017 03:51 - CONCLUSION: Diffuse mild gaseous distention of bowel Arvind Hernandez MD Brain MRI 06/22/17 0000 Signed Impressions: Service Date/Time: Thursday, June 22, 2017 12:10 - CONCLUSION: All ischemic changes, negative for acute ischemic event. Negative for parenchymal hemorrhage. Usman Pimenetl MD FACR Abdomen/Pelvis CT 06/14/17 0000 Signed Impressions: Service Date/Time: Wednesday, June 14, 2017 22:32 - CONCLUSION: 1. Increasing basilar lung consolidation since chest CT from June 04. 2. Mild ileus. No bowel obstruction, free air or free fluid. 3. Left hip replacement. Advanced osteoarthritis right hip. NG in stomach. Rectal tube present. Humphrey Weston MD Head CT 06/04/17 0000 Signed Impressions: Service Date/Time: Sunday, June 04, 2017 18:46 - CONCLUSION: 1. No significant change compared to 06/03/17. 2. No acute infarct, acute hemorrhage , mass effect or extra-axial fluid collection. 3. Scattered old lacunar infarcts within the bilateral basal ganglia. 4. Mild periventricular and subcortical white matter small vessel ischemic changes bilaterally. 5. Old right posterior parietal infarct. 6. Chronic opacification of right mastoid air cells. Mckay Stone MD Chest CT 06/04/17 0000 Signed Impressions: Service Date/Time: Sunday, June 04, 2017 18:49 - CONCLUSION: 1. Right mid lung field and posterior bibasilar patchiness consistent with probable areas of pneumonia and/or atelectasis. Clinical correlation is recommended. 2. Tiny bilateral pleural effusions. 3. Cardiomegaly and coronary artery calcifications. 4. Minimal scattered emphysematous changes bilaterally. Mckay Stone MD Physical Exam GENERAL: Opens eyes, focusing, on the vent, NAD SKIN: Cool, dry. No jaundice, rashes, or lesions. EYES: Pupils equal and round and reactive. Extraocular motions intact. No scleral icterus. No injection or drainage. NECK: trach in place , site ok CARDIOVASCULAR: Regular rate and rhythm without murmurs, gallops, or rubs. No JVD. Peripheral pulses symmetric. RESPIRATORY/CHEST: Symmetric, unlabored respirations. Clear to auscultation. Breath sounds equal bilaterally. No wheezes, rales, or rhonchi. GASTROINTESTINAL: Abdomen, less distendedm mild tenderness, not guarding, BS hypoactive. GENITOURINARY: Without palpable bladder distension. condom catheter in place with clear yellow MUSCULOSKELETAL: Extremities without clubbing, cyanosis, or edema. No joint tenderness or effusion noted. No calf tenderness. No mottling or clubbing. NEUROLOGICAL: moves all 4 extremities, awake, alert, follows commands PSYCHIATRIC: unable to assess LINE: No evidence of infection Assessment & Plan Remarks IMPRESSION Mental status change, PNA, E.coli Acute VDRF, failure to wean Multiple med problems Leukocytosis, better Abdominal distention, diarrhea - C.diff negative - likely ischemic colitis C glabrata sepsis HCAP PNA (PSAE in spurtu) PLAN Continue Micafungin, anticipate 14 days [facility]/S Continue Zosyn to cover both PSAE and intraabd aerobic/anaerobic tamara Follow temps Monitor progress Weaning per CCM Karey Ayala MD Jun 26, 2017 13:11
[2017-06-26] MEDS: MICAFUNGIN INJ 150 MG in SODIUM CHLORIDE 0.9% INJ 100 ML IV SCH (13:42)
--- NOTE | 2017-06-26 15:13 | HHI.PR ---
Subjective Subjective Notes wants water, has dry mouth. denies abdominal pain. Objective Vitals/I&O Vital Signs Date Time Temp Pulse Resp B/P (MAP) Pulse Ox O2 Delivery O2 Flow Rate FiO2 06/26/17 14:00 72 29 150/87 (108) 98 06/26/17 12:39 40 06/26/17 12:00 99.1 Labs Laboratory Tests Test 06/26/17 05:39 White Blood Count 7.2 Red Blood Count 3.24 Hemoglobin 9.6 Hematocrit 28.5 Mean Corpuscular Volume 88.2 Mean Corpuscular Hemoglobin 29.5 Mean Corpuscular Hemoglobin Concent 33.5 Red Cell Distribution Width 14.5 Platelet Count 216 Mean Platelet Volume 7.6 Neutrophils (%) (Auto) 84.4 Lymphocytes (%) (Auto) 8.4 Monocytes (%) (Auto) 4.6 Eosinophils (%) (Auto) 2.3 Basophils (%) (Auto) 0.3 Neutrophils # (Auto) 6.1 Lymphocytes # (Auto) 0.6 Monocytes # (Auto) 0.3 Eosinophils # (Auto) 0.2 Basophils # (Auto) 0.0 CBC Comment DIFF FINAL Differential Comment Blood Urea Nitrogen 12 Creatinine 0.46 Random Glucose 127 Calcium Level 7.8 Sodium Level 139 Potassium Level 3.5 Chloride Level 107 Carbon Dioxide Level 23.0 Anion Gap 9 Estimat Glomerular Filtration Rate 187 Lactic Acid Level 0.8 Date/Time Source Procedure Growth Status 06/19/17 01:35 Blood Peripheral Aerobic Blood Culture - Final NO GROWTH IN 5 DAYS Complete 06/19/17 01:35 Blood Peripheral Anaerobic Blood Culture - Final NO GROWTH IN 5 DAYS Complete 06/21/17 13:30 Sputum Expectorated Sputum Gram Stain - Final Complete 06/21/17 13:30 Sputum Culture - Final Escherichia Coli Pseudomonas Aeruginosa Complete 06/10/17 12:45 Urine Catheterized Urine Urine Culture - Final NO GROWTH IN 48 HOURS. Complete Abdomen: Non-distended, Non-tender A/P Assessment and Plan Pneumatosis of cecum and proximal transverse colon. No abdominal pain. No free air on abdominal Ct or xrays. WBC normal. Choked with ice chips/ sips H2o. D/W RN, OK with me to get Speech pathology evaluation for swallowing. Will sign off, no need for surgical exploration/ colon resection. Please call if his clinical situation suggests deterioration/ bowel ischemia. Thanks. Pedro Luis Monroe MD Jun 26, 2017 15:13
--- NOTE | 2017-06-26 15:24 | HHI.PR ---
Subjective Remarks 61 YOWM with VDRF,Trach,COPD did't tolerate CPAP Sedated with Fentanyl and Precedex No Fever Awake follows commands Objective Vital Signs Vital Signs Date Time Temp Pulse Resp B/P (MAP) Pulse Ox O2 Delivery O2 Flow Rate FiO2 06/26/17 14:00 72 29 150/87 (108) 98 06/26/17 14:00 72 06/26/17 13:30 69 06/26/17 13:30 69 17 149/87 (107) 06/26/17 13:00 70 16 144/82 (102) 06/26/17 13:00 70 06/26/17 12:39 95 40 06/26/17 12:30 69 06/26/17 12:30 69 19 144/74 (97) 95 06/26/17 12:00 40 06/26/17 12:00 99.1 77 29 146/89 (108) 06/26/17 12:00 77 06/26/17 10:00 60 06/26/17 10:00 60 24 142/77 (98) 06/26/17 09:30 62 21 132/76 (94) 06/26/17 09:30 62 06/26/17 09:00 64 30 140/77 (98) 06/26/17 09:00 64 06/26/17 08:33 94 40 06/26/17 08:31 68 06/26/17 08:31 68 21 139/72 (94) 93 06/26/17 08:00 98.6 79 34 171/79 (109) 94 06/26/17 08:00 40 06/26/17 08:00 79 06/26/17 06:00 60 06/26/17 04:22 95 40 06/26/17 04:00 50 06/26/17 04:00 99.0 61 17 127/73 (91) 95 06/26/17 04:00 61 06/26/17 02:00 64 06/26/17 01:09 95 40 06/26/17 00:00 65 06/26/17 00:00 99.3 65 14 139/75 (96) 99 06/26/17 00:00 50 06/25/17 22:10 99 40 06/25/17 22:00 68 06/25/17 20:00 69 12/26/17 20:00 50 06/25/17 20:00 98.6 69 22 148/71 (96) 95 06/25/17 20:00 99 40 06/25/17 18:00 68 06/25/17 16:00 50 06/25/17 16:00 100.0 67 24 136/77 (96) 89 06/25/17 16:00 67 06/25/17 15:48 98 40 I/O 06/25/17 06/25/17 06/25/17 06/26/17 06/26/17 06/26/17 07:00 15:00 23:00 07:00 15:00 23:00 Intake Total 1450 ml 300 ml 100 ml 1568 ml Output Total 1300 ml 850 ml 600 ml Balance 150 ml 300 ml -750 ml 968 ml IV Total 1450 ml 300 ml 100 ml 1568 ml Output Urine Total 800 ml 700 ml 400 ml Gastric Drainage Total 500 ml 150 ml 200 ml # Bowel Movements 0 0 Result Diagram: 06/26/1739 06/26/17538 Objective Remarks GENERAL: MBMN WM, on Vent, sedated SKIN: Warm and dry. HEAD: Normocephalic. EYES: No scleral icterus. No injection or drainage. NECK: Supple, trachea midline. No JVD or lymphadenopathy. CARDIOVASCULAR: Regular rate and rhythm without murmurs, gallops, or rubs. RESPIRATORY: Breath sounds equal bilaterally. No accessory muscle use. GASTROINTESTINAL: Abdomen soft, non-tender, nondistended. MUSCULOSKELETAL: No cyanosis, or edema. BACK: Nontender without obvious deformity. No CVA tenderness. A/P Assessment and Plan VDRF S/P Trach COPD COPD Schzoaffective disorder Bipolar disorder PLAN: Vent Support Cont Abx Sputum culture Sedation with Fentanyl and Precedex Started Ice chips Syed Cuellar MD Jun 26, 2017 15:24
--- NOTE | 2017-06-26 16:29 | HHI.CCPN ---
Subjective Remarks/Hospital Course 06/04: Mr. Reilly is a 61-year-old male with a history of COPD, hypertension, hyperlipidemia, CVA, schizoaffective disorder, bipolar disorder, GERD, renal failure, and arthritis who presented to the emergency room on 06/03/2017 from a residential facility for evaluation of altered mental status. Upon review of the medical records from the residential facility, it is noted he had a right lower lobe pneumonia diagnosed mid May. Head CT showed no acute infarct, acute hemorrhage, mass effect, or extra-axial fluid collection but scattered old lacunar infarcts within the bilateral basal ganglia. Mild periventricular and subcortical white matter small vessel ischemic changes bilaterally. Chest x-ray shows scattered bibasilar patchiness consistent with possible pneumonia. Per documentation : While in the ER, patient was in moderate respiratory distress with tachypnea and utilization of accessory abdominal muscles to breathe. His lung sounds are bilaterally congested and he is confused and a poor historian. His speech is slightly slurred but this is not a new finding. He was noted to be on 5 L nasal cannula with oxygen saturation of 94% in the emergency room. Patient was admitted to the ICU by the hospitalist service. He was initiated on heparin drip for suspicion of PE. He was also noted to have an elevated CPK and creatinine. His blood pressures were running high overnight. This afternoon patient developed worsening agitation and disorientation and confusion. His heparin was stopped earlier by Dr. Garcia due to low suspicion for PE. Patient developed worsening respiration status with respirations in the 30s and O2 sats in the mid 80s. Critical care medicine was consulted. Patient was emergently intubated by Dr. Elvira Gutierrez and I subsequently took over patient care. When I evaluated the patient he had been sedated for the intubation and is being placed on mechanical ventilation. History was obtained by discussion with Dr. Garcia, Dr. Gutierrez and ICU nursing staff as well as documentation in the chart. 06/05: Remains sedated, orally intubated on mechanical ventilation. 06/06: Sedated, orally intubated on mechanical ventilation. Failed C Pap trial today. Got extremely anxious on lightening sedation. 06/07 No events overnight. Sedated and intubated. Afebrile. 06/08 No events overnight. Sedated with Diprivan, Fentanyl and intubated. 06/09 Patient remains sedated and intubated. Afebrile.Did not tolerate CPAP trials yesterday. 06/10 Patient is sedated with Fentanyl and Diprivan. Afebrile. Did not tolerate CPAP yesterday as he became restless, agitated and tachycardic. 06/11 Patient remains sedated and intubated. Spiked fever with Tmax 101.1 06/12 No events overnight. Sedated and intubated. Afebrile. 06/13 Patient remains intubated and sedated with Diprivan, fentanyl in addition he is on Precedex drip. T:100.0 06/14 Patient remains sedated and intubated. Afebrile. Did not tolerate CPAP trials yesterday as he became tahypenic, tachycardic and restless. 06/15: agitation persists. respiratory failure persists. severely volume overloaded. has been intubated for almost 2 weeks. may require trach. CT abd/ pelvis without overt acute disease. no other source for fungemia. 06/16: s/p trach yesterday. no significant changes. 06/17: plan for PEG today. agitation persists with significant delirium. no other significant changes. 06/18: s/p PEG placement. weaning off sedation. still failing cpap trials. 06/19: cannot wean off precedex: agitated delirium persists. also still failing cpap trials. 06/20 No events overnight. On Precedex drip for agitation. T: 100.1 last night. 06/21 No events overnight. Remains on Precedex drip. Afebrile. 06/22 Patient is sedated with Fentanyl and Precedex. Afebrile. For MRI brain today. 06/23 Patient became hypotensive overnight and had episode of desaturation with says in mid 80's. Given 500ml 5% Albumin now off sedation ( Fentanyl and Precedex held). BP is better. In addition he was given Dulcolax suppos. and Mg citrate now having BM's. KUB this morning showed diffuse mild gaseous distention of bowel. FIO2 requirements is better now on 50% FIO2 with PEEP: 10 from FIO2 75 % overnight. CXR unchanged ( Consolidation LLL and Atelectasis right lung base) . T:99.9 06/24: Remains on mechanical ventilation via tracheostomy. CT abdomen pelvis done on 06/23 revealed pneumatosis involving cecum and transverse colon suggesting ischemic colitis. Gen. surgery consulted and patient evaluated by Dr. Monroe today who recommends medical management at this time with IV fluids and continuation of antibiotics. Patient not tolerating tube feeds and has abdominal distention. Maintaining blood pressure currently. 06/25: Remains on mechanical ventilation via tracheostomy. Does not appear to be in any acute distress. Still nothing by mouth. Being followed by general surgery for pneumatosis involving cecum and transverse colon. 06/26: Remains on mechanical ventilation via tracheostomy. Awake. Denies abdominal pain this morning. Has bowel sounds. Abdominal less distended. Objective Vital Signs Date Time Temp Pulse Resp B/P (MAP) Pulse Ox O2 Delivery O2 Flow Rate FiO2 06/26/17 16:21 97 40 06/26/17 14:00 72 29 150/87 (108) 06/26/17 12:00 99.1 Intake and Output 06/26/17 06/26/17 06/27/17 08:00 16:00 00:00 Intake Total 1568 ml 1200 ml Output Total 600 ml Balance 968 ml 1200 ml Result Diagram: 06/26/17 0539 06/26/17 0539 Imaging Last 48 hours Impressions Abdomen X-Ray 06/24/17 0600 Signed Impressions: Service Date/Time: Saturday, June 24, 2017 03:14 - CONCLUSION: Dilated transverse colon and no definite pneumatosis intestinalis or technique, however the patient's prior CT examination was suggestive of pneumatosis. Domingo Pollack MD Chest X-Ray 06/24/17 0000 Signed Impressions: Service Date/Time: Saturday, June 24, 2017 03:08 - CONCLUSION: Bibasilar atelectasis and/or infiltrate is seen. Domingo Pollack MD Chest X-Ray 06/23/17 0000 Signed Impressions: Service Date/Time: Friday, June 23, 2017 03:45 - CONCLUSION: No significant interval change Arvind Hernandez MD CT Angiography 06/23/17 0000 Signed Impressions: Service Date/Time: Friday, June 23, 2017 20:34 - CONCLUSION: 1. No evidence of pulmonary embolus. 2. Increased patchy bilateral pulmonary consolidation with mild thin-walled cavitation of focal consolidation in the right upper lobe. This finding could be related consolidation of an area of long with emphysema involvement. 3. Mild to moderate upper lobe pulmonary parenchymal emphysema is seen. Rosas Rowell MD Abdomen/Pelvis CT 06/23/17 0000 Signed Impressions: Service Date/Time: Friday, June 23, 2017 20:34 - CONCLUSION: 1. Bowel wall pneumatosis involving the cecum and proximal transverse colon. Findings are suspicious for ischemic colitis. Surrounding inflammatory change in the intra-abdominal fat. No portal venous gas or free air identified. 2. Prominent bilateral lower lobe pulmonary consolidation. Rosas Rowell MD Abdomen X-Ray 06/23/17 0000 Signed Impressions: Service Date/Time: Friday, June 23, 2017 03:51 - CONCLUSION: Diffuse mild gaseous distention of bowel Arvind Hernandez MD Last Impressions Chest X-Ray 06/23/17 0000 Signed Impressions: Service Date/Time: Friday, June 23, 2017 03:45 - CONCLUSION: No significant interval change Arvind Hernandez MD Abdomen X-Ray 06/23/17 0000 Signed Impressions: Service Date/Time: Friday, June 23, 2017 03:51 - CONCLUSION: Diffuse mild gaseous distention of bowel Arvind Hernandez MD Brain MRI 06/22/17 0000 Signed Impressions: Service Date/Time: Thursday, June 22, 2017 12:10 - CONCLUSION: All ischemic changes, negative for acute ischemic event. Negative for parenchymal hemorrhage. Usman Pimentel MD FACR Abdomen/Pelvis CT 06/14/17 0000 Signed Impressions: Service Date/Time: Wednesday, June 14, 2017 22:32 - CONCLUSION: 1. Increasing basilar lung consolidation since chest CT from June 04. 2. Mild ileus. No bowel obstruction, free air or free fluid. 3. Left hip replacement. Advanced osteoarthritis right hip. NG in stomach. Rectal tube present. Humphrey Weston MD Head CT 06/04/17 0000 Signed Impressions: Service Date/Time: Sunday, June 04, 2017 18:46 - CONCLUSION: 1. No significant change compared to 06/03/17. 2. No acute infarct, acute hemorrhage , mass effect or extra-axial fluid collection. 3. Scattered old lacunar infarcts within the bilateral basal ganglia. 4. Mild periventricular and subcortical white matter small vessel ischemic changes bilaterally. 5. Old right posterior parietal infarct. 6. Chronic opacification of right mastoid air cells. Mckay Stone MD Chest CT 06/04/17 0000 Signed Impressions: Service Date/Time: Sunday, June 04, 2017 18:49 - CONCLUSION: 1. Right mid lung field and posterior bibasilar patchiness consistent with probable areas of pneumonia and/or atelectasis. Clinical correlation is recommended. 2. Tiny bilateral pleural effusions. 3. Cardiomegaly and coronary artery calcifications. 4. Minimal scattered emphysematous changes bilaterally. Mckay Stone MD Objective Remarks GENERAL: Patient is 61 yo on ventilator via trach. SKIN: Warm and dry. HEAD: Normocephalic. EYES: No scleral icterus. No injection or drainage. NECK: Supple, trachea midline. No JVD or lymphadenopathy. + Trach CARDIOVASCULAR: Regular rate and rhythm without murmurs, gallops, or rubs. RESPIRATORY: Breath sounds equal bilaterally.Coarse BS GASTROINTESTINAL: Abdomen soft, non-tender, distended, bowel sounds sluggish MUSCULOSKELETAL: No cyanosis, or edema. Neuro: Off sedation, follows simple commands intermittently. A/P Assessment and Plan Assessment: 61yM with history of schizoaffective d/o and bipolar d/o who presented with acute hypoxic respiratory failure and now fungemia without overt source. Not improving on pathway. No meaningful improvements over last 2 weeks. s/p trach 06/15 and PEG 06/17. remains off pathway. needs long-term acute care level of rehabilitation. agitation still the biggest barrier to successful weaning. Plan: Neuro: Acute Metabolic Encephalopathy Agitated Delirium - persistent. Schizoaffective disorder/bipolar disorder History of alcohol abuse History of CVA Fentanyl and Precedex currently on hold. Monitor neuro status MRI brain 06/22: No acute ischemic events, no hemorrhage On Lactulose level 30ml TID, Ammonia level slightly elevated 42. EEG showed mod. encephalopathy Neuro is following. Dr. Rosibel Cheatham 10mg IM q12h prn for agitation continue Aricept and Cogentin clonidine to 0.3mg po q8h guanfacine 2mg po q12h CV: Uncontrolled hypertension - improving. hyperlipidemia Monitor HR and BP keep MAP>65mmHg Hold antihypertensive meds ( Norvasc 5mg daily, clonidine 0.3mg po q8h, Lopressor 50mg Q12) 2-D echo with normal LV/RV function Pulmo: Acute respiratory failure requiring mechanical ventilation - persistent. COPD exacerbation Resolving community acquired pneumonia Intubated and placed on mechanical ventilation on 06/04. Continue with vent support keep sat >92%. Vent bundle, bronchodilators, on prednisone taper. On PRVC Decrease FIO2 as cordell. CTA chest negative for PE. trach 06/[address] Sapp/[facility] GI/liver: GERD Acute protein calorie malnutrition- severe 06/23 KUB abdomen: Mild gaseous distention of bowel Ct abd/pelvis 06/23: Pneumatosis involving cecum and transverse colon concerning for ischemia. C. Diff negative Continue with bowel regimen- On Lactulose 30ml TID, Senna daily. Given Mag citrate and Dulcolax overnight- having BM's. Surgery following patient for ischemic colitis- no surgical intervention recommended at this time and they have signed off. Will attempt resuming tube feeds via PEG. Renal/: ROSENDO/ CKD - resolved. Rhabdomyolysis - resolved. Acute intravascular volume overload- resolved. Metabolic alkalosis- resolving. Monitor renal function, electrolytes replacement per protocol. on LR@84ml/hr ID: Fungemia Community Acquired Pneumonia- resolved. Ischemic colitis Sepsis continue abx per ID- on micafungin: plan for 14 days after 1st negative blood culture. Continue Zosyn, micafungin per ID CT abdomen pelvis on 06/23 shows pneumatosis involving cecum and transverse colon consistent with ischemic colitis. Patient evaluated by general surgery Dr. Monroe who at this time recommends continuing IV fluids and antibiotics and he will be available for surgery if patient develops evidence of peritonitis or worsens clinically. ID is following Sputum cx: E.coli on 06/04, sputum 06/10: normal resp tamara BC 06/14, 06/19 : NGTD, Sputum cx 06/21: E.coli, Pseudomonas Endocrine: Hyperglycemia of critical illness SSI medium scale, q4h Heme: Anemia secondary to chronic disease Monitor CBC. Prophylaxis: Pepcid/SCDs. SQ Lovenox Lines: PIV Level 3 Dejuan Bermudez MD Jun 26, 2017 16:29
[2017-06-27] VITALS (20 sets, daily range): BP systolic 122–189; BP diastolic 74–86; PULSE 50–71; RESP 15–34; TEMP 98.3–99.1; O2SAT 91–99
[2017-06-27] MEDS: PIPERACIL-TAZO 4.5 GM PREMIX 100 ML IV SCH ×4 (02:04→20:02)
[2017-06-27] MEDS: LACTATED RINGER'S 1000 ML INJ 1,000 ML IV SCH (02:04)
[2017-06-27] MEDS: INSULIN NovoLIN REGULAR SUPPLEMENTAL SCALE SQ SCH ×6 (03:30→23:30)
[2017-06-27] MEDS: CHLORHEXIDINE GLUCONATE 2 % 1 PACK (2 CLOTHS) TOP SCH (03:48)
[2017-06-27] MEDS: DEXMEDETOMIDINE INJ 1,000 MCG in SODIUM CHLOR 0.9% 250 ML INJ 240 ML IV PRN ×2 (08:08→20:07)
[2017-06-27] MEDS: SENNOSIDES SYRUP 8.8 MG/5 ML CUP PO SCH (08:08)
[2017-06-27] MEDS: CHLORHEXIDINE 0.12% (ORAL KIT) 15 ML CUP MT SCH ×2 (08:09→20:03)
[2017-06-27 08:16] LABS: BASOPHIL % 0.9 % (0.0-2.0); EOSINOPHIL # 0.2 TH/MM3 (0-0.4); EOSINOPHIL % 2.9 % (0.0-4.0); HEMATOCRIT 28.7 % (39.0-51.0); HEMOGLOBIN 9.5 GM/DL (13.0-17.0); LYMPH % 15.1 % (9.0-44.0); LYMPHOCYTE # 0.8 TH/MM3 (1.0-4.8); MEAN CELL VOLUME 89.1 FL (80.0-100.0); MEAN CORPUSCULAR HEMOGLOBIN 29.6 PG (27.0-34.0); MEAN CORPUSCULAR HGB CONC 33.2 % (32.0-36.0); MONO % 5.4 % (0.0-8.0); MONOCYTE # 0.3 TH/MM3 (0-0.9); NEUT % 75.7 % (16.0-70.0); PLATELET COUNT 226 TH/MM3 (150-450); RED BLOOD COUNT 3.22 MIL/MM3 (4.50-5.90); RED CELL DISTRIBUTION WIDTH 14.5 % (11.6-17.2); WHITE BLOOD COUNT 5.3 TH/MM3 (4.0-11.0)
[2017-06-27] MEDS: SODIUM CHLORIDE 0.9% FLUSH 10 ML FLUSH IV FLUSH SCH ×2 (08:25→20:04)
[2017-06-27 08:33] LABS: ALBUMIN 1.5 GM/DL (3.4-5.0); ALKALINE PHOSPHATASE 84 U/L (45-117); ALT (GPT) 21 U/L (12-78); AST (GOT) 15 U/L (15-37); BICARBONATE 20.9 MEQ/L (21.0-32.0); BLOOD UREA NITROGEN 9 MG/DL (7-18); CHLORIDE 104 MEQ/L (98-107); CREATININE 0.41 MG/DL (0.60-1.30); GLOMERULAR FILTRATION RATE 213 ML/MIN (>89); GLUCOSE,RANDOM 107 MG/DL (74-106); SODIUM (NA) 138 MEQ/L (136-145); TOTAL BILIRUBIN ADULT 0.8 MG/DL (0.2-1.0); TOTAL PROTEIN 5.6 GM/DL (6.4-8.2)
[2017-06-27] MEDS: NUTRISOURCE FIBER POWDER 1 PACK G-TUBE SCH ×2 (09:00→20:03)
[2017-06-27] MEDS: FAMOTIDINE 20 MG/2 ML VIAL IV PUSH SCH ×2 (11:11→22:35)
--- NOTE | 2017-06-27 11:14 | HHI.CCPN ---
Subjective Remarks/Hospital Course 06/04: Mr. Reilly is a 61-year-old male with a history of COPD, hypertension, hyperlipidemia, CVA, schizoaffective disorder, bipolar disorder, GERD, renal failure, and arthritis who presented to the emergency room [facility]03/[facility] for evaluation of altered mental status. Upon review of the medical records from the jail facility, it is noted he had a right lower lobe pneumonia diagnosed mid May. Head CT showed no acute infarct, acute hemorrhage, mass effect, or extra-axial fluid collection but scattered old lacunar infarcts within the bilateral basal ganglia. Mild periventricular and subcortical white matter small vessel ischemic changes bilaterally. Chest x-ray shows scattered bibasilar patchiness consistent with possible pneumonia. Per documentation : While in the ER, patient was in moderate respiratory distress with tachypnea and utilization of accessory abdominal muscles to breathe. His lung sounds are bilaterally congested and he is confused and a poor historian. His speech is slightly slurred but this is not a new finding. He was noted to be on 5 L nasal cannula with oxygen saturation of 94% in the emergency room. Patient was admitted to the ICU by the hospitalist service. He was initiated on heparin drip for suspicion of PE. He was also noted to have an elevated CPK and creatinine. His blood pressures were running high overnight. This afternoon patient developed worsening agitation and disorientation and confusion. His heparin was stopped earlier by Dr. Garcia due to low suspicion for PE. Patient developed worsening respiration status with respirations in the 30s and O2 sats in the mid 80s. Critical care medicine was consulted. Patient was emergently intubated by Dr. Elvira Gutierrez and I subsequently took over patient care. When I evaluated the patient he had been sedated for the intubation and is being placed on mechanical ventilation. History was obtained by discussion with Dr. Garcia, Dr. Gutierrez and ICU nursing staff as well as documentation in the chart. 06/05: Remains sedated, orally intubated on mechanical ventilation. 06/06: Sedated, orally intubated on mechanical ventilation. Failed C Pap trial today. Got extremely anxious on lightening sedation. 06/07 No events overnight. Sedated and intubated. Afebrile. 06/08 No events overnight. Sedated with Diprivan, Fentanyl and intubated. 06/09 Patient remains sedated and intubated. Afebrile.Did not tolerate CPAP trials yesterday. 06/10 Patient is sedated with Fentanyl and Diprivan. Afebrile. Did not tolerate CPAP yesterday as he became restless, agitated and tachycardic. 06/11 Patient remains sedated and intubated. Spiked fever with Tmax 101.1 06/12 No events overnight. Sedated and intubated. Afebrile. 06/13 Patient remains intubated and sedated with Diprivan, fentanyl in addition he is on Precedex drip. T:100.0 06/14 Patient remains sedated and intubated. Afebrile. Did not tolerate CPAP trials yesterday as he became tahypenic, tachycardic and restless. 06/15: agitation persists. respiratory failure persists. severely volume overloaded. has been intubated for almost 2 weeks. may require trach. CT abd/ pelvis without overt acute disease. no other source for fungemia. 06/16: s/p trach yesterday. no significant changes. 06/17: plan for PEG today. agitation persists with significant delirium. no other significant changes. 06/18: s/p PEG placement. weaning off sedation. still failing cpap trials. 06/19: cannot wean off precedex: agitated delirium persists. also still failing cpap trials. 06/20 No events overnight. On Precedex drip for agitation. T: 100.1 last night. 06/21 No events overnight. Remains on Precedex drip. Afebrile. 06/22 Patient is sedated with Fentanyl and Precedex. Afebrile. For MRI brain today. 06/23 Patient became hypotensive overnight and had episode of desaturation with says in mid 80's. Given 500ml 5% Albumin now off sedation ( Fentanyl and Precedex held). BP is better. In addition he was given Dulcolax suppos. and Mg citrate now having BM's. KUB this morning showed diffuse mild gaseous distention of bowel. FIO2 requirements is better now on 50% FIO2 with PEEP: 10 from FIO2 75 % overnight. CXR unchanged ( Consolidation LLL and Atelectasis right lung base) . T:99.9 06/24: Remains on mechanical ventilation via tracheostomy. CT abdomen pelvis done on 06/23 revealed pneumatosis involving cecum and transverse colon suggesting ischemic colitis. Gen. surgery consulted and patient evaluated by Dr. Monroe today who recommends medical management at this time with IV fluids and continuation of antibiotics. Patient not tolerating tube feeds and has abdominal distention. Maintaining blood pressure currently. 06/25: Remains on mechanical ventilation via tracheostomy. Does not appear to be in any acute distress. Still nothing by mouth. Being followed by general surgery for pneumatosis involving cecum and transverse colon. 06/26: Remains on mechanical ventilation via tracheostomy. Awake. Denies abdominal pain this morning. Has bowel sounds. Abdominal less distended. 06/27: no improvements. afebrile. restarting tube feeds slowly. Objective Vital Signs Date Time Temp Pulse Resp B/P (MAP) Pulse Ox O2 Delivery O2 Flow Rate FiO2 06/27/17 10:00 50 06/27/17 08:49 95 40 06/27/17 08:00 98.3 16 160/85 (110) Intake and Output 06/27/17 06/27/17 06/28/17 08:00 16:00 00:00 Intake Total 1200 ml Output Total 700 ml Balance 500 ml Result Diagram: 06/27/17 0725 06/27/17 0725 Imaging Last 48 hours Impressions Abdomen X-Ray 06/24/17 0600 Signed Impressions: Service Date/Time: Saturday, June 24, 2017 03:14 - CONCLUSION: Dilated transverse colon and no definite pneumatosis intestinalis or technique, however the patient's prior CT examination was suggestive of pneumatosis. Domingo Pollack MD Chest X-Ray 06/24/17 0000 Signed Impressions: Service Date/Time: Saturday, June 24, 2017 03:08 - CONCLUSION: Bibasilar atelectasis and/or infiltrate is seen. Domingo Pollack MD Chest X-Ray 06/23/17 0000 Signed Impressions: Service Date/Time: Friday, June 23, 2017 03:45 - CONCLUSION: No significant interval change Arvind Hernandez MD CT Angiography 06/23/17 0000 Signed Impressions: Service Date/Time: Friday, June 23, 2017 20:34 - CONCLUSION: 1. No evidence of pulmonary embolus. 2. Increased patchy bilateral pulmonary consolidation with mild thin-walled cavitation of focal consolidation in the right upper lobe. This finding could be related consolidation of an area of long with emphysema involvement. 3. Mild to moderate upper lobe pulmonary parenchymal emphysema is seen. Rosas Rowell MD Abdomen/Pelvis CT 06/23/17 0000 Signed Impressions: Service Date/Time: Friday, June 23, 2017 20:34 - CONCLUSION: 1. Bowel wall pneumatosis involving the cecum and proximal transverse colon. Findings are suspicious for ischemic colitis. Surrounding inflammatory change in the intra-abdominal fat. No portal venous gas or free air identified. 2. Prominent bilateral lower lobe pulmonary consolidation. Rosas Rowell MD Abdomen X-Ray 06/23/17 0000 Signed Impressions: Service Date/Time: Friday, June 23, 2017 03:51 - CONCLUSION: Diffuse mild gaseous distention of bowel Arvind Hernandez MD Last Impressions Chest X-Ray 06/23/17 0000 Signed Impressions: Service Date/Time: Friday, June 23, 2017 03:45 - CONCLUSION: No significant interval change Arvind Hernandez MD Abdomen X-Ray 06/23/17 0000 Signed Impressions: Service Date/Time: Friday, June 23, 2017 03:51 - CONCLUSION: Diffuse mild gaseous distention of bowel Arvind Hernandez MD Brain MRI 06/22/17 0000 Signed Impressions: Service Date/Time: Thursday, June 22, 2017 12:10 - CONCLUSION: All ischemic changes, negative for acute ischemic event. Negative for parenchymal hemorrhage. Usman Pimentel MD FACR Abdomen/Pelvis CT 06/14/17 0000 Signed Impressions: Service Date/Time: Wednesday, June 14, 2017 22:32 - CONCLUSION: 1. Increasing basilar lung consolidation since chest CT from June 04. 2. Mild ileus. No bowel obstruction, free air or free fluid. 3. Left hip replacement. Advanced osteoarthritis right hip. NG in stomach. Rectal tube present. Humphrey Weston MD Head CT 06/04/17 0000 Signed Impressions: Service Date/Time: Sunday, June 04, 2017 18:46 - CONCLUSION: 1. No significant change compared to 06/03/17. 2. No acute infarct, acute hemorrhage , mass effect or extra-axial fluid collection. 3. Scattered old lacunar infarcts within the bilateral basal ganglia. 4. Mild periventricular and subcortical white matter small vessel ischemic changes bilaterally. 5. Old right posterior parietal infarct. 6. Chronic opacification of right mastoid air cells. Mckay Stone MD Chest CT 06/04/17 0000 Signed Impressions: Service Date/Time: Sunday, June 04, 2017 18:49 - CONCLUSION: 1. Right mid lung field and posterior bibasilar patchiness consistent with probable areas of pneumonia and/or atelectasis. Clinical correlation is recommended. 2. Tiny bilateral pleural effusions. 3. Cardiomegaly and coronary artery calcifications. 4. Minimal scattered emphysematous changes bilaterally. Mckay Stone MD Objective Remarks GENERAL: Patient is 61 yo on ventilator via trach. SKIN: Warm and dry. HEAD: Normocephalic. EYES: No scleral icterus. No injection or drainage. NECK: Supple, trachea midline. No JVD. + Trach CARDIOVASCULAR: Regular rate and rhythm. RESPIRATORY: Breath sounds equal bilaterally.Coarse BS GASTROINTESTINAL: Abdomen soft, non-tender, nondistended. MUSCULOSKELETAL: No cyanosis, or edema. Neuro: Off sedation, follows simple commands intermittently. A/P Assessment and Plan Assessment: 61yM with history of schizoaffective d/o and bipolar d/o who presented with acute hypoxic respiratory failure and now fungemia without overt source. Not improving on pathway. No meaningful improvements over last 2 weeks. s/p trach 06/15 and PEG 06/17. remains off pathway. needs long-term acute care level of rehabilitation. agitation still the biggest barrier to successful weaning. Plan: Neuro: Acute Metabolic Encephalopathy Agitated Delirium - persistent. Schizoaffective disorder/bipolar disorder History of alcohol abuse History of CVA Fentanyl and Precedex currently on hold. Monitor neuro status MRI brain 06/22: No acute ischemic events, no hemorrhage On Lactulose level 30ml TID, Ammonia level slightly elevated 42. EEG showed mod. encephalopathy Neuro is following. Dr. Rosibel Cheatham 10mg IM q12h prn for agitation continue Aricept and Cogentin clonidine to 0.3mg po q8h guanfacine 2mg po q12h CV: Uncontrolled hypertension - improving. hyperlipidemia Monitor HR and BP keep MAP>65mmHg Hold antihypertensive meds ( Norvasc 5mg daily, clonidine 0.3mg po q8h, Lopressor 50mg Q12) 2-D echo with normal LV/RV function Pulmo: Acute respiratory failure requiring mechanical ventilation - persistent. COPD exacerbation Resolving community acquired pneumonia Intubated and placed on mechanical ventilation on 06/04. Continue with vent support keep sat >92%. Vent bundle, bronchodilators, on prednisone taper. On PRVC Decrease FIO2 as cordell. CTA chest negative for PE. trach 06/[address] Sapp/[facility] GI/liver: GERD Acute protein calorie malnutrition- severe 06/23 KUB abdomen: Mild gaseous distention of bowel Ct abd/pelvis 06/23: Pneumatosis involving cecum and transverse colon concerning for ischemia. C. Diff negative Continue with bowel regimen- On Lactulose 30ml TID, Senna daily. Given Mag citrate and Dulcolax overnight- having BM's. Surgery following patient for ischemic colitis- no surgical intervention recommended at this time and they have signed off. Will attempt resuming tube feeds via PEG, start trickles at 10 cc/hr. Renal/: ROSENDO/ CKD - resolved. Rhabdomyolysis - resolved. Acute intravascular volume overload- resolved. Metabolic alkalosis- resolving. Monitor renal function, electrolytes replacement per protocol. saline lock ivf. lasix 20mg iv x 1. ID: Fungemia Community Acquired Pneumonia- resolved. Ischemic colitis Sepsis continue abx per ID- on micafungin: plan for 14 days after 1st negative blood culture. Continue Zosyn, micafungin per ID CT abdomen pelvis on 06/23 shows pneumatosis involving cecum and transverse colon consistent with ischemic colitis. Patient evaluated by general surgery Dr. Monroe who at this time recommends continuing IV fluids and antibiotics and he will be available for surgery if patient develops evidence of peritonitis or worsens clinically. ID is following Sputum cx: E.coli on 06/04, sputum 06/10: normal resp tamara BC 06/14, 06/19 : NGTD, Sputum cx 06/21: E.coli, Pseudomonas Endocrine: Hyperglycemia of critical illness SSI medium scale, q4h Heme: Anemia secondary to chronic disease Monitor CBC. Prophylaxis: Pepcid/SCDs. SQ Lovenox Lines: Beltran Chiu MD Jun 27, 2017 11:14
--- NOTE | 2017-06-27 11:24 | HHI.IDPN ---
Subjective Subjective Remarks ID COVERAGE 61-year-old male with a history of COPD, hypertension, hyperlipidemia, CVA, schizoaffective disorder, bipolar disorder, GERD, renal failure, and arthritis presented to the emergency room on 06/03/2017 [facility]. H/o right lower lobe pneumonia in mid May. Head CT w/o acute findings Chest x-ray shows consistent with possible pneumonia. Has been intubated. Has been on vent and now S/P trach 06/15 Also with PEG Notes reviewed Temps ok On CPAP PEG to drainage BP ok Repeat AXR no change in dilated transverse colon CT showed pneumotosis coli WBC normal Antibiotics Micafungin Zosyn Current Medications Medications (Trade) Dose Ordered Sig/Solange Route Start Time Stop Time Status Last Admin (Narcan Inj) 0.4 mg UNSCH PRN IV PUSH 06/03/17 21:45 (Duoneb Neb) 1 ampule Q2HR NEB PRN NEB 06/03/17 22:45 06/23/17 20:13 (Lipitor) 40 mg HS PO 06/04/17 21:00 Future Hold 06/22/17 20:49 (Cogentin) 1 mg HS PO 06/04/17 21:00 Future Hold 06/22/17 20:49 (Aricept) 5 mg HS PO 06/04/17 21:00 Future Hold 06/22/17 21:18 (risperDAL) 1 mg HS PO 06/04/17 21:00 Future Hold 06/22/17 20:49 (Flomax) 0.4 mg HS PO 06/04/17 21:00 Future Hold 06/22/17 20:49 (Effexor Xr) 150 mg DAILY PO 06/04/17 09:00 Future Hold 06/23/17 09:59 Miscellaneous Information 1 Q361D XX 06/04/17 03:45 (Chlorhexidine 2% Cloth) 3 pack Taper DAILY@04 TOP 06/04/17 04:00 05/31/18 03:59 06/27/17 03:48 (Chlorhexidine 2% Cloth) 3 pack UNSCH PRN TOP 06/04/17 03:45 (Norvasc) 5 mg DAILY PO 06/04/17 12:00 Future Hold 06/22/17 08:21 (Apresoline Inj) 10 mg Q4H PRN IV PUSH 06/04/17 13:00 06/20/17 22:23 (NS Flush) 2 ml UNSCH PRN IV FLUSH 06/04/17 16:45 (NS Flush) 2 ml BID IV FLUSH 06/04/17 21:00 06/27/17 08:25 (Peridex 0.12% Liq) 15 ml BID@08,20 MT 06/04/17 20:00 06/27/17 08:09 (Trandate Inj) 20 mg Q4H PRN IV PUSH 06/04/17 17:00 06/10/17 15:35 (Lovenox Inj) 40 mg Q24H SQ 06/05/17 17:00 Future Hold 06/16/17 15:33 Dexmedetomidine HCl 1000 mcg/ Sodium Chloride 250 ml @ 4.95 mls/hr TITRATE PRN IV 06/10/17 09:30 06/27/17 08:08 (Tylenol) 650 mg Q4H PRN PO 06/10/17 12:15 Future Hold 06/23/17 02:33 (Pepcid) 20 mg Q12HR PO 06/10/17 21:00 Future Hold 06/23/17 09:58 Micafungin Sodium 150 mg/Sodium Chloride 100 ml @ 100 mls/hr Q24H IV 06/14/17 14:00 06/27/17 23:00 06/26/17 13:42 (Mycostatin Powder) 1 applic Q12HR PRN TOPICAL 06/14/17 11:00 (Mag-Ox) 800 mg UNSCH PRN PO 06/15/17 07:00 Magnesium Sulfate 4 gm/Sodium Chloride 100 ml @ 50 mls/hr UNSCH PRN IV 06/15/17 07:00 Magnesium Sulfate 2 gm/Sodium Chloride 100 ml @ 50 mls/hr UNSCH PRN IV 06/15/17 07:00 Potassium Chloride 100 ml @ 50 mls/hr Q2H PRN IV 06/15/17 07:00 06/17/17 18:35 Potassium Chloride 100 ml @ 50 mls/hr Q2H PRN IV 06/15/17 07:00 06/16/17 10:30 Potassium Chloride 100 ml @ 50 mls/hr Q2H PRN IV 06/15/17 07:00 Potassium Chloride 100 ml @ 25 mls/hr UNSCH PRN IV 06/15/17 07:00 (K-Phos) 2,000 mg Q4H PRN PO 06/15/17 07:00 (K-Phos) 2,000 mg UNSCH PRN PO/TUBE 06/15/17 07:00 Potassium Phosphate 30 mmol/ Sodium Chloride 260 ml @ 42 mls/hr UNSCH PRN IV 06/15/17 07:00 Sodium Phosphate 30 mmol/Sodium Chloride 250 ml @ 42 mls/hr UNSCH PRN IV 06/15/17 07:00 (Geodon Inj) 10 mg Q12H PRN IM 06/15/17 07:15 06/19/17 10:24 (Nutrisource Fiber Powder) 2 pack BID G-TUBE 06/15/17 09:00 06/27/17 09:00 (Catapres) 0.3 mg Q8HR PO 06/18/17 14:00 Future Hold 06/22/17 20:49 (Tenex) 2 mg Q12HR PO 06/19/17 14:00 Future Hold 06/23/17 09:59 (Imodium Liq) 2 mg UNSCH PRN PO 06/19/17 17:45 Future Hold (Lopressor) 50 mg Q12HR PO 06/21/17 11:00 Future Hold 06/22/17 21:18 Fentanyl Citrate 250 ml @ 5 mls/hr TITRATE PRN IV 06/21/17 15:45 06/22/17 23:48 (Lactulose Liq) 30 ml TID PO 06/22/17 13:00 Future Hold 06/23/17 13:39 (Senna Liq) 8.8 mg DAILY PO 06/23/17 09:00 06/27/17 08:08 (D50w (Vial) Inj) 50 ml UNSCH PRN IV PUSH 06/23/17 07:30 (Glucagon Inj) 1 mg UNSCH PRN OTHER 06/23/17 07:30 (NovoLIN R SUPPLEMENTAL SCALE) 1 Q4H SQ 06/23/17 07:30 06/23/17 15:30 (Zofran Inj) 4 mg Q8HR PRN IV PUSH 06/23/17 16:00 (Pepcid Inj) 20 mg Q12H IV PUSH 06/23/17 23:00 06/27/17 11:11 Piperacillin Sod/ Tazobactam Sod 100 ml @ 200 mls/hr Q6H IV 06/24/17 14:00 06/27/17 08:08 (Dilaudid Pf Inj) 0.5 mg Q4H PRN IV 06/25/17 22:15 06/26/17 10:46 (Lasix Inj) 20 mg ONCE ONCE IV PUSH 06/27/17 11:30 06/27/17 11:31 Lines PIV Past Medical History COPD Hypertension Hyperlipidemia CVA Schizoaffective disorder Bipolar disorder GERD Acute renal failure Arthritis Alcohol withdrawal seizures Past Surgical History Left partial pneumonectomy Left hip surgery Allergies: Coded Allergies: hydrochlorothiazide (Unverified Allergy, Intermediate, EFFECTS HIS SODIUM LEVEL, 02/12/17) PT STATES HE IS NOT ALLERGIC codeine (Unverified Adverse Reaction, Severe, 02/12/17) PT STATES HE IS NOT ALLERGIC Objective . Vital Signs Date Time Temp Pulse Resp B/P (MAP) Pulse Ox O2 Delivery O2 Flow Rate FiO2 06/27/17 10:00 50 06/27/17 08:49 95 40 06/27/17 08:00 52 06/27/17 08:00 40 06/27/17 08:00 98.3 52 16 160/85 (110) 98 06/27/17 06:00 55 06/27/17 04:14 93 40 06/27/17 04:00 40 06/27/17 04:00 53 06/27/17 04:00 98.7 53 20 148/75 (99) 91 06/27/17 02:00 53 06/27/17 00:15 94 40 06/27/17 00:00 40 06/27/17 00:00 98.3 58 15 168/79 (108) 99 06/27/17 00:00 58 06/26/17 22:00 52 06/26/17 20:00 59 06/26/17 20:00 40 06/26/17 20:00 98.3 59 17 157/83 (107) 95 06/26/17 19:58 95 40 06/26/17 18:30 61 06/26/17 18:00 62 06/26/17 16:30 65 06/26/17 16:30 97.9 65 25 152/81 (104) 98 06/26/17 16:21 97 40 06/26/17 16:00 66 06/26/17 16:00 40 06/26/17 16:00 66 17 154/78 (103) 95 06/26/17 14:00 72 29 150/87 (108) 98 06/26/17 14:00 72 06/26/17 13:30 69 06/26/17 13:30 69 17 149/87 (107) 06/26/17 13:00 70 16 144/82 (102) 06/26/17 13:00 70 06/26/17 12:39 95 40 06/26/17 12:30 69 06/26/17 12:30 69 19 144/74 (97) 95 06/26/17 12:00 40 06/26/17 12:00 99.1 77 29 146/89 (108) 06/26/17 12:00 77 . Laboratory Tests Test 06/26/17 05:39 06/27/17 07:25 White Blood Count 7.2 TH/MM3 5.3 TH/MM3 Red Blood Count 3.24 MIL/MM3 3.22 MIL/MM3 Hemoglobin 9.6 GM/DL 9.5 GM/DL Hematocrit 28.5 % 28.7 % Mean Corpuscular Volume 88.2 FL 89.1 FL Mean Corpuscular Hemoglobin 29.5 PG 29.6 PG Mean Corpuscular Hemoglobin Concent 33.5 % 33.2 % Red Cell Distribution Width 14.5 % 14.5 % Platelet Count 216 TH/MM3 226 TH/MM3 Mean Platelet Volume 7.6 FL 8.0 FL Neutrophils (%) (Auto) 84.4 % 75.7 % Lymphocytes (%) (Auto) 8.4 % 15.1 % Monocytes (%) (Auto) 4.6 % 5.4 % Eosinophils (%) (Auto) 2.3 % 2.9 % Basophils (%) (Auto) 0.3 % 0.9 % Neutrophils # (Auto) 6.1 TH/MM3 4.0 TH/MM3 Lymphocytes # (Auto) 0.6 TH/MM3 0.8 TH/MM3 Monocytes # (Auto) 0.3 TH/MM3 0.3 TH/MM3 Eosinophils # (Auto) 0.2 TH/MM3 0.2 TH/MM3 Basophils # (Auto) 0.0 TH/MM3 0.0 TH/MM3 CBC Comment DIFF FINAL DIFF FINAL Differential Comment Laboratory Tests Test 06/26/17 05:39 06/27/17 07:25 Blood Urea Nitrogen 12 MG/DL 9 MG/DL Creatinine 0.46 MG/DL 0.41 MG/DL Random Glucose 127 MG/DL 107 MG/DL Calcium Level 7.8 MG/DL 8.0 MG/DL Sodium Level 139 MEQ/L 138 MEQ/L Potassium Level 3.5 MEQ/L 3.7 MEQ/L Chloride Level 107 MEQ/L 104 MEQ/L Carbon Dioxide Level 23.0 MEQ/L 20.9 MEQ/L Anion Gap 9 MEQ/L 13 MEQ/L Estimat Glomerular Filtration Rate 187 ML/MIN 213 ML/MIN Lactic Acid Level 0.8 mmol/L Total Protein 5.6 GM/DL Albumin 1.5 GM/DL Alkaline Phosphatase 84 U/L Aspartate Amino Transf (AST/SGOT) 15 U/L Alanine Aminotransferase (ALT/SGPT) 21 U/L Total Bilirubin 0.8 MG/DL Imaging Abdomen X-Ray 06/24/17 0600 Signed Impressions: Service Date/Time: Saturday, June 24, 2017 03:14 - CONCLUSION: Dilated transverse colon and no definite pneumatosis intestinalis or technique, however the patient's prior CT examination was suggestive of pneumatosis. Domingo Pollack MD Chest X-Ray 06/24/17 0000 Signed Impressions: Service Date/Time: Saturday, June 24, 2017 03:08 - CONCLUSION: Bibasilar atelectasis and/or infiltrate is seen. Domingo Pollack MD Chest X-Ray 06/23/17 0000 Signed Impressions: Service Date/Time: Friday, June 23, 2017 03:45 - CONCLUSION: No significant interval change Arvind Hernandez MD CT Angiography 06/23/17 0000 Signed Impressions: Service Date/Time: Friday, June 23, 2017 20:34 - CONCLUSION: 1. No evidence of pulmonary embolus. 2. Increased patchy bilateral pulmonary consolidation with mild thin-walled cavitation of focal consolidation in the right upper lobe. This finding could be related consolidation of an area of long with emphysema involvement. 3. Mild to moderate upper lobe pulmonary parenchymal emphysema is seen. Rosas Rowell MD Abdomen/Pelvis CT 06/23/17 0000 Signed Impressions: Service Date/Time: Friday, June 23, 2017 20:34 - CONCLUSION: 1. Bowel wall pneumatosis involving the cecum and proximal transverse colon. Findings are suspicious for ischemic colitis. Surrounding inflammatory change in the intra-abdominal fat. No portal venous gas or free air identified. 2. Prominent bilateral lower lobe pulmonary consolidation. Rosas Rowell MD Abdomen X-Ray 06/23/17 0000 Signed Impressions: Service Date/Time: Friday, June 23, 2017 03:51 - CONCLUSION: Diffuse mild gaseous distention of bowel Arvind Hernandez MD Chest X-Ray 06/23/17 0000 Signed Impressions: Service Date/Time: Friday, June 23, 2017 03:45 - CONCLUSION: No significant interval change Arvind Hernandez MD Abdomen X-Ray 06/23/17 0000 Signed Impressions: Service Date/Time: Friday, June 23, 2017 03:51 - CONCLUSION: Diffuse mild gaseous distention of bowel Arvind Hernandez MD Brain MRI 06/22/17 0000 Signed Impressions: Service Date/Time: Thursday, June 22, 2017 12:10 - CONCLUSION: All ischemic changes, negative for acute ischemic event. Negative for parenchymal hemorrhage. Usman Pimentel MD FACR Abdomen/Pelvis CT 06/14/17 0000 Signed Impressions: Service Date/Time: Wednesday, June 14, 2017 22:32 - CONCLUSION: 1. Increasing basilar lung consolidation since chest CT from June 04. 2. Mild ileus. No bowel obstruction, free air or free fluid. 3. Left hip replacement. Advanced osteoarthritis right hip. NG in stomach. Rectal tube present. Humphrey Weston MD Head CT 06/04/17 0000 Signed Impressions: Service Date/Time: Sunday, June 04, 2017 18:46 - CONCLUSION: 1. No significant change compared to 06/03/17. 2. No acute infarct, acute hemorrhage , mass effect or extra-axial fluid collection. 3. Scattered old lacunar infarcts within the bilateral basal ganglia. 4. Mild periventricular and subcortical white matter small vessel ischemic changes bilaterally. 5. Old right posterior parietal infarct. 6. Chronic opacification of right mastoid air cells. Mckay Stone MD Chest CT 06/04/17 0000 Signed Impressions: Service Date/Time: Sunday, June 04, 2017 18:49 - CONCLUSION: 1. Right mid lung field and posterior bibasilar patchiness consistent with probable areas of pneumonia and/or atelectasis. Clinical correlation is recommended. 2. Tiny bilateral pleural effusions. 3. Cardiomegaly and coronary artery calcifications. 4. Minimal scattered emphysematous changes bilaterally. Mckay Stone MD Physical Exam GENERAL: Opens eyes, focusing, on the vent, NAD SKIN: Cool, dry. No jaundice, rashes, or lesions. EYES: Pupils equal and round and reactive. Extraocular motions intact. No scleral icterus. No injection or drainage. NECK: trach in place , site ok CARDIOVASCULAR: Regular rate and rhythm without murmurs, gallops, or rubs. No JVD. Peripheral pulses symmetric. RESPIRATORY/CHEST: Symmetric, unlabored respirations. Clear to auscultation. Breath sounds equal bilaterally. No wheezes, rales, or rhonchi. GASTROINTESTINAL: Abdomen, less distendedm mild tenderness, not guarding, BS hypoactive. GENITOURINARY: Without palpable bladder distension. condom catheter in place with clear yellow MUSCULOSKELETAL: Extremities without clubbing, cyanosis, or edema. No joint tenderness or effusion noted. No calf tenderness. No mottling or clubbing. NEUROLOGICAL: moves all 4 extremities, awake, alert, follows commands PSYCHIATRIC: unable to assess LINE: No evidence of infection Assessment & Plan Remarks IMPRESSION Mental status change, PNA, E.coli, S/P Rx Acute VDRF, failure to wean Multiple med problems Leukocytosis, better Abdominal distention, diarrhea - C.diff negative - likely ischemic colitis C glabrata sepsis New HCAP PNA (PSAE and E coli in sputum) PLAN Continue Micafungin, anticipate 14 days - end date ordered in Continuity Control Continue Zosyn to cover both PSAE and intraabd aerobic/anaerobic tamara Follow temps Monitor progress Weaning per CCM Karey Ayala MD Jun 27, 2017 11:24
[2017-06-27] MEDS ORDERED: FUROSEMIDE 20 MG/2 ML VIAL IV PUSH ONE (11:30)
[2017-06-27] MEDS: MICAFUNGIN INJ 150 MG in SODIUM CHLORIDE 0.9% INJ 100 ML IV SCH (15:00)
[2017-06-27] MEDS: ONDANSETRON HCL 4 MG/2 ML VIAL IV PUSH PRN (18:39)
--- NOTE | 2017-06-27 18:56 | HHI.PR ---
Subjective Remarks 61 YOWM with VDRF,Trach,COPD did't tolerate CPAP Sedated with Precedex No Fever Awake follows commands Has greeninsh PEG tube drainage, ? aspiration Objective Vital Signs Vital Signs Date Time Temp Pulse Resp B/P (MAP) Pulse Ox O2 Delivery O2 Flow Rate FiO2 06/27/17 16:10 94 40 06/27/17 16:00 64 06/27/17 16:00 40 06/27/17 16:00 98.6 64 34 175/74 (107) 95 06/27/17 14:00 55 06/27/17 13:37 97 40 06/27/17 12:00 40 06/27/17 12:00 58 06/27/17 12:00 99.1 58 22 155/79 (104) 95 06/27/17 10:00 50 06/27/17 08:49 95 40 06/27/17 08:00 52 06/27/17 08:00 40 06/27/17 08:00 98.3 52 16 160/85 (110) 98 06/27/17 06:00 55 06/27/17 04:14 93 40 06/27/17 04:00 40 06/27/17 04:00 53 06/27/17 04:00 98.7 53 20 148/75 (99) 91 06/27/17 02:00 53 06/27/17 00:15 94 40 06/27/17 00:00 40 06/27/17 00:00 98.3 58 15 168/79 (108) 99 06/27/17 00:00 58 06/26/17 22:00 52 06/26/17 20:00 59 06/26/17 20:00 40 06/26/17 20:00 98.3 59 17 157/83 (107) 95 06/26/17 19:58 95 40 I/O 06/26/17 06/26/17 06/26/17 06/27/17 06/27/17 06/27/17 07:00 15:00 23:00 07:00 15:00 23:00 Intake Total 1568 ml 200 ml 1250 ml 1200 ml 1000 ml Output Total 600 ml 450 ml 700 ml Balance 968 ml 200 ml 800 ml 500 ml 1000 ml IV Total 1568 ml 200 ml 1250 ml 1200 ml 1000 ml Tube Feeding 0 ml Output Urine Total 400 ml 450 ml 400 ml Gastric Drainage Total 200 ml 300 ml # Bowel Movements 0 1 1 Result Diagram: 06/27/1772406/27/17724 Objective Remarks GENERAL: MBMN WM, on Vent, sedated SKIN: Warm and dry. HEAD: Normocephalic. EYES: No scleral icterus. No injection or drainage. NECK: Supple, trachea midline. No JVD or lymphadenopathy. CARDIOVASCULAR: Regular rate and rhythm without murmurs, gallops, or rubs. RESPIRATORY: Breath sounds equal bilaterally. No accessory muscle use. GASTROINTESTINAL: Abdomen soft, non-tender, nondistended. MUSCULOSKELETAL: No cyanosis, or edema. BACK: Nontender without obvious deformity. No CVA tenderness. A/P Assessment and Plan VDRF S/P Trach COPD COPD Schzoaffective disorder Bipolar disorder PLAN: Vent Support Cont Abx Sputum culture Sedation with Precedex PEG tube to intermittent suctiom Syed Cuellar MD Jun 27, 2017 18:56
[2017-06-27] MEDS: hydrALAZINE HCL 20 MG/ML VIAL IV PUSH PRN (21:52)
[2017-06-27] MEDS: METOCLOPRAMIDE HCL 10 MG/2 ML VIAL IV PUSH SCH (22:35)
[2017-06-28] VITALS (18 sets, daily range): BP systolic 104–139; BP diastolic 59–72; PULSE 56–77; RESP 18–38; TEMP 97.6–99.8; O2SAT 24–100
[2017-06-28] MEDS: PIPERACIL-TAZO 4.5 GM PREMIX 100 ML IV SCH ×4 (01:58→20:47)
[2017-06-28] MEDS: INSULIN NovoLIN REGULAR SUPPLEMENTAL SCALE SQ SCH ×6 (03:30→23:30)
[2017-06-28] MEDS: DEXMEDETOMIDINE INJ 1,000 MCG in SODIUM CHLOR 0.9% 250 ML INJ 240 ML IV PRN ×3 (03:55→22:07)
[2017-06-28] MEDS: CHLORHEXIDINE GLUCONATE 2 % 1 PACK (2 CLOTHS) TOP SCH (03:56)
[2017-06-28] MEDS: RESP: ALBUTEROL 2.5 MG/IPRATROPIUM 0.5 MG NEB (PRN) NEB (04:23)
[2017-06-28] MEDS: METOCLOPRAMIDE HCL 10 MG/2 ML VIAL IV PUSH SCH ×3 (06:00→20:47)
[2017-06-28] MEDS: CHLORHEXIDINE 0.12% (ORAL KIT) 15 ML CUP MT SCH ×2 (07:12→20:48)
--- NOTE | 2017-06-28 08:17 | HHI.CCPN ---
Subjective Remarks/Hospital Course 06/04: Mr. Reilly is a 61-year-old male with a history of COPD, hypertension, hyperlipidemia, CVA, schizoaffective disorder, bipolar disorder, GERD, renal failure, and arthritis who presented to the emergency room on 06/03/2017 from a longterm facility for evaluation of altered mental status. Upon review of the medical records from the longterm facility, it is noted he had a right lower lobe pneumonia diagnosed mid May. Head CT showed no acute infarct, acute hemorrhage, mass effect, or extra-axial fluid collection but scattered old lacunar infarcts within the bilateral basal ganglia. Mild periventricular and subcortical white matter small vessel ischemic changes bilaterally. Chest x-ray shows scattered bibasilar patchiness consistent with possible pneumonia. Per documentation : While in the ER, patient was in moderate respiratory distress with tachypnea and utilization of accessory abdominal muscles to breathe. His lung sounds are bilaterally congested and he is confused and a poor historian. His speech is slightly slurred but this is not a new finding. He was noted to be on 5 L nasal cannula with oxygen saturation of 94% in the emergency room. Patient was admitted to the ICU by the hospitalist service. He was initiated on heparin drip for suspicion of PE. He was also noted to have an elevated CPK and creatinine. His blood pressures were running high overnight. This afternoon patient developed worsening agitation and disorientation and confusion. His heparin was stopped earlier by Dr. Garcia due to low suspicion for PE. Patient developed worsening respiration status with respirations in the 30s and O2 sats in the mid 80s. Critical care medicine was consulted. Patient was emergently intubated by Dr. Elvira Gutierrez and I subsequently took over patient care. When I evaluated the patient he had been sedated for the intubation and is being placed on mechanical ventilation. History was obtained by discussion with Dr. Garcia, Dr. Gutierrez and ICU nursing staff as well as documentation in the chart. 06/05: Remains sedated, orally intubated on mechanical ventilation. 06/06: Sedated, orally intubated on mechanical ventilation. Failed C Pap trial today. Got extremely anxious on lightening sedation. 06/07 No events overnight. Sedated and intubated. Afebrile. 06/08 No events overnight. Sedated with Diprivan, Fentanyl and intubated. 06/09 Patient remains sedated and intubated. Afebrile.Did not tolerate CPAP trials yesterday. 06/10 Patient is sedated with Fentanyl and Diprivan. Afebrile. Did not tolerate CPAP yesterday as he became restless, agitated and tachycardic. 06/11 Patient remains sedated and intubated. Spiked fever with Tmax 101.1 06/12 No events overnight. Sedated and intubated. Afebrile. 06/13 Patient remains intubated and sedated with Diprivan, fentanyl in addition he is on Precedex drip. T:100.0 06/14 Patient remains sedated and intubated. Afebrile. Did not tolerate CPAP trials yesterday as he became tahypenic, tachycardic and restless. 06/15: agitation persists. respiratory failure persists. severely volume overloaded. has been intubated for almost 2 weeks. may require trach. CT abd/ pelvis without overt acute disease. no other source for fungemia. 06/16: s/p trach yesterday. no significant changes. 06/17: plan for PEG today. agitation persists with significant delirium. no other significant changes. 06/18: s/p PEG placement. weaning off sedation. still failing cpap trials. 06/19: cannot wean off precedex: agitated delirium persists. also still failing cpap trials. 06/20 No events overnight. On Precedex drip for agitation. T: 100.1 last night. 06/21 No events overnight. Remains on Precedex drip. Afebrile. 06/22 Patient is sedated with Fentanyl and Precedex. Afebrile. For MRI brain today. 06/23 Patient became hypotensive overnight and had episode of desaturation with says in mid 80's. Given 500ml 5% Albumin now off sedation ( Fentanyl and Precedex held). BP is better. In addition he was given Dulcolax suppos. and Mg citrate now having BM's. KUB this morning showed diffuse mild gaseous distention of bowel. FIO2 requirements is better now on 50% FIO2 with PEEP: 10 from FIO2 75 % overnight. CXR unchanged ( Consolidation LLL and Atelectasis right lung base) . T:99.9 06/24: Remains on mechanical ventilation via tracheostomy. CT abdomen pelvis done on 06/23 revealed pneumatosis involving cecum and transverse colon suggesting ischemic colitis. Gen. surgery consulted and patient evaluated by Dr. Monroe today who recommends medical management at this time with IV fluids and continuation of antibiotics. Patient not tolerating tube feeds and has abdominal distention. Maintaining blood pressure currently. 06/25: Remains on mechanical ventilation via tracheostomy. Does not appear to be in any acute distress. Still nothing by mouth. Being followed by general surgery for pneumatosis involving cecum and transverse colon. 06/26: Remains on mechanical ventilation via tracheostomy. Awake. Denies abdominal pain this morning. Has bowel sounds. Abdominal less distended. 06/27: no improvements. afebrile. restarting tube feeds slowly. 06/28: tube feeds held overnight for high residuals. reglan iv started. tolerated t-piece yesterday for short period. Objective Vital Signs Date Time Temp Pulse Resp B/P (MAP) Pulse Ox O2 Delivery O2 Flow Rate FiO2 06/28/17 06:00 62 06/28/17 04:25 99 50 06/28/17 04:00 98.4 18 104/59 (74) Intake and Output 06/28/17 06/28/17 06/29/17 08:00 16:00 00:00 Intake Total 100 ml Output Total 600 ml Balance -500 ml Result Diagram: 06/27/17 0725 06/27/17 0725 Imaging Last 48 hours Impressions Abdomen X-Ray 06/24/17 0600 Signed Impressions: Service Date/Time: Saturday, June 24, 2017 03:14 - CONCLUSION: Dilated transverse colon and no definite pneumatosis intestinalis or technique, however the patient's prior CT examination was suggestive of pneumatosis. Domingo Pollack MD Chest X-Ray 06/24/17 0000 Signed Impressions: Service Date/Time: Saturday, June 24, 2017 03:08 - CONCLUSION: Bibasilar atelectasis and/or infiltrate is seen. Domingo Pollack MD Chest X-Ray 06/23/17 0000 Signed Impressions: Service Date/Time: Friday, June 23, 2017 03:45 - CONCLUSION: No significant interval change Arvind Hernandez MD CT Angiography 06/23/17 0000 Signed Impressions: Service Date/Time: Friday, June 23, 2017 20:34 - CONCLUSION: 1. No evidence of pulmonary embolus. 2. Increased patchy bilateral pulmonary consolidation with mild thin-walled cavitation of focal consolidation in the right upper lobe. This finding could be related consolidation of an area of long with emphysema involvement. 3. Mild to moderate upper lobe pulmonary parenchymal emphysema is seen. Rosas Rowell MD Abdomen/Pelvis CT 06/23/17 0000 Signed Impressions: Service Date/Time: Friday, June 23, 2017 20:34 - CONCLUSION: 1. Bowel wall pneumatosis involving the cecum and proximal transverse colon. Findings are suspicious for ischemic colitis. Surrounding inflammatory change in the intra-abdominal fat. No portal venous gas or free air identified. 2. Prominent bilateral lower lobe pulmonary consolidation. Rosas Rowell MD Abdomen X-Ray 06/23/17 0000 Signed Impressions: Service Date/Time: Friday, June 23, 2017 03:51 - CONCLUSION: Diffuse mild gaseous distention of bowel Arvind Hernandez MD Last Impressions Chest X-Ray 06/23/17 0000 Signed Impressions: Service Date/Time: Friday, June 23, 2017 03:45 - CONCLUSION: No significant interval change Arvind Hernandez MD Abdomen X-Ray 06/23/17 0000 Signed Impressions: Service Date/Time: Friday, June 23, 2017 03:51 - CONCLUSION: Diffuse mild gaseous distention of bowel Arvind Hernandez MD Brain MRI 06/22/17 0000 Signed Impressions: Service Date/Time: Thursday, June 22, 2017 12:10 - CONCLUSION: All ischemic changes, negative for acute ischemic event. Negative for parenchymal hemorrhage. Usman Pimentel MD FACR Abdomen/Pelvis CT 06/14/17 0000 Signed Impressions: Service Date/Time: Wednesday, June 14, 2017 22:32 - CONCLUSION: 1. Increasing basilar lung consolidation since chest CT from June 04. 2. Mild ileus. No bowel obstruction, free air or free fluid. 3. Left hip replacement. Advanced osteoarthritis right hip. NG in stomach. Rectal tube present. Humphrey Weston MD Head CT 06/04/17 0000 Signed Impressions: Service Date/Time: Sunday, June 04, 2017 18:46 - CONCLUSION: 1. No significant change compared to 06/03/17. 2. No acute infarct, acute hemorrhage , mass effect or extra-axial fluid collection. 3. Scattered old lacunar infarcts within the bilateral basal ganglia. 4. Mild periventricular and subcortical white matter small vessel ischemic changes bilaterally. 5. Old right posterior parietal infarct. 6. Chronic opacification of right mastoid air cells. Mckay Stone MD Chest CT 06/04/17 0000 Signed Impressions: Service Date/Time: Sunday, June 04, 2017 18:49 - CONCLUSION: 1. Right mid lung field and posterior bibasilar patchiness consistent with probable areas of pneumonia and/or atelectasis. Clinical correlation is recommended. 2. Tiny bilateral pleural effusions. 3. Cardiomegaly and coronary artery calcifications. 4. Minimal scattered emphysematous changes bilaterally. Mckay Stone MD Objective Remarks GENERAL: Patient is 61 yo on ventilator via trach. SKIN: Warm and dry. HEAD: Normocephalic. EYES: No scleral icterus. No injection or drainage. NECK: trachea midline. No JVD. + Trach CARDIOVASCULAR: Regular rate and rhythm. RESPIRATORY: equal chest rise. 40% fio2. GASTROINTESTINAL: Abdomen soft, non-tender, nondistended. MUSCULOSKELETAL: No cyanosis, or edema. Neuro: Off sedation, follows simple commands intermittently. A/P Assessment and Plan Assessment: 61yM with history of schizoaffective d/o and bipolar d/o who presented with acute hypoxic respiratory failure and now fungemia without overt source. Not improving on pathway. No meaningful improvements over last 2 weeks. s/p trach 06/15 and PEG 06/17. remains off pathway. needs long-term acute care level of rehabilitation. tube feed intolerance persists. has been without nutrition since 06/24. will give 24h of reglan and then re-attempt. if no success after 7 days, may need to consider iv source of nutrition. Plan: Neuro: Acute Metabolic Encephalopathy Agitated Delirium - improving. Schizoaffective disorder/bipolar disorder History of alcohol abuse History of CVA Monitor neuro status MRI brain 06/22: No acute ischemic events, no hemorrhage On Lactulose level 30ml TID, Ammonia level slightly elevated 42. EEG showed mod. encephalopathy Neuro is following. Dr. Rosibel Cheatham 10mg IM q12h prn for agitation PO meds on hold. CV: Uncontrolled hypertension - resolved. hyperlipidemia Monitor HR and BP keep MAP>65mmHg Hold antihypertensive meds ( Norvasc 5mg daily, clonidine 0.3mg po q8h, Lopressor 50mg Q12) 2-D echo with normal LV/RV function Pulmo: Acute respiratory failure requiring mechanical ventilation - persistent. COPD exacerbation Resolving community acquired pneumonia Intubated and placed on mechanical ventilation on 06/04. Continue with vent support keep sat >92%. Vent bundle, bronchodilators, on prednisone taper. On PRVC Decrease FIO2 as cordell. CTA chest negative for PE. trach 06/[address] Sapp/Alexander continue daily SBTs. t-piece trials if tolerated. GI/liver: GERD Acute protein calorie malnutrition- severe 06/23 KUB abdomen: Mild gaseous distention of bowel Ct abd/pelvis 06/23: Pneumatosis involving cecum and transverse colon concerning for ischemia. C. Diff negative hold bowel regimen. Surgery following patient for ischemic colitis- no surgical intervention recommended at this time and they have signed off. hold tube feeds, keep reglan iv. restart tube feeds 06/29 after 24h of reglan. having regular bowel movements. passing flatus. Renal/: ROSENDO/ CKD - resolved. Rhabdomyolysis - resolved. Acute intravascular volume overload- resolved. Metabolic alkalosis- resolving. Monitor renal function, electrolytes replacement per protocol. saline lock ivf. lasix 20mg iv x 1 again today. ID: Fungemia- resolved. Community Acquired Pneumonia- resolved. Ischemic colitis Sepsis [facility] Associated pneumonia with pseudomonas/e.coli completed full 14 day course of micagunfin for fungemia. Continue Zosyn. CT abdomen pelvis on 06/23 shows pneumatosis involving cecum and transverse colon consistent with ischemic colitis. Patient evaluated by general surgery Dr. Monroe who at this time recommends continuing IV fluids and antibiotics and he will be available for surgery if patient develops evidence of peritonitis or worsens clinically. ID is following Sputum cx: E.coli on 06/04, sputum 06/10: normal resp tamara BC 06/14, 06/19 : NGTD, Sputum cx 06/21: E.coli, Pseudomonas Endocrine: Hyperglycemia of critical illness SSI medium scale, q4h Heme: Anemia secondary to chronic disease Monitor CBC. Prophylaxis: Pepcid/SCDs. SQ Lovenox Lines: Beltran Chiu MD Jun 28, 2017 08:17
[2017-06-28] MEDS: NUTRISOURCE FIBER POWDER 1 PACK G-TUBE SCH ×2 (09:00→20:48)
[2017-06-28] MEDS ORDERED: FUROSEMIDE 20 MG/2 ML VIAL IV PUSH ONE (09:00)
--- NOTE | 2017-06-28 09:31 | HHI.IDPN ---
Subjective Subjective Remarks ID COVERAGE 61-year-old male with a history of COPD, hypertension, hyperlipidemia, CVA, schizoaffective disorder, bipolar disorder, GERD, renal failure, and arthritis presented to the emergency room on 06/03/2017 [facility]. H/o right lower lobe pneumonia in mid May. Head CT w/o acute findings Chest x-ray shows consistent with possible pneumonia. Has been intubated. Has been on vent and now S/P trach 06/15 Also with PEG Notes reviewed Temps ok On CPAP, looks comfortable PEG to drainage BP ok Repeat AXR no change in dilated transverse colon CT showed pneumotosis coli WBC normal Antibiotics Current Medications Zosyn Medications (Trade) Dose Ordered Sig/Solange Route Start Time Stop Time Status Last Admin (Narcan Inj) 0.4 mg UNSCH PRN IV PUSH 06/03/17 21:45 (Duoneb Neb) 1 ampule Q2HR NEB PRN NEB 06/03/17 22:45 06/28/17 04:23 (Lipitor) 40 mg HS PO 06/04/17 21:00 Future Hold 06/22/17 20:49 (Cogentin) 1 mg HS PO 06/04/17 21:00 Future Hold 06/22/17 20:49 (Aricept) 5 mg HS PO 06/04/17 21:00 Future Hold 06/22/17 21:18 (risperDAL) 1 mg HS PO 06/04/17 21:00 Future Hold 06/22/17 20:49 (Flomax) 0.4 mg HS PO 06/04/17 21:00 Future Hold 06/22/17 20:49 (Effexor Xr) 150 mg DAILY PO 06/04/17 09:00 Future Hold 06/23/17 09:59 Miscellaneous Information 1 Q361D XX 06/04/17 03:45 (Chlorhexidine 2% Cloth) Taper DAILY@04 TOP 06/04/17 04:00 05/31/18 03:59 06/28/17 03:56 (Chlorhexidine 2% Cloth) 3 pack UNSCH PRN TOP 06/04/17 03:45 (Norvasc) 5 mg DAILY PO 06/04/17 12:00 Future Hold 06/22/17 08:21 (Apresoline Inj) 10 mg Q4H PRN IV PUSH 06/04/17 13:00 06/27/17 21:52 (NS Flush) 2 ml UNSCH PRN IV FLUSH 06/04/17 16:45 06/27/17 21:53 (NS Flush) 2 ml BID IV FLUSH 06/04/17 21:00 06/27/17 20:04 (Peridex 0.12% Liq) 15 ml BID@08,20 MT 06/04/17 20:00 06/28/17 07:12 (Trandate Inj) 20 mg Q4H PRN IV PUSH 06/04/17 17:00 06/10/17 15:35 (Lovenox Inj) 40 mg Q24H SQ 06/05/17 17:00 Future Hold 06/16/17 15:33 Dexmedetomidine HCl 1000 mcg/ Sodium Chloride 250 ml @ 4.95 mls/hr TITRATE PRN IV 06/10/17 09:30 06/28/17 03:55 (Tylenol) 650 mg Q4H PRN PO 06/10/17 12:15 Future Hold 06/23/17 02:33 (Pepcid) 20 mg Q12HR PO 06/10/17 21:00 Future Hold 06/23/17 09:58 (Mycostatin Powder) 1 applic Q12HR PRN TOPICAL 06/14/17 11:00 (Mag-Ox) 800 mg UNSCH PRN PO 06/15/17 07:00 Magnesium Sulfate 4 gm/Sodium Chloride 100 ml @ 50 mls/hr UNSCH PRN IV 06/15/17 07:00 Magnesium Sulfate 2 gm/Sodium Chloride 100 ml @ 50 mls/hr UNSCH PRN IV 06/15/17 07:00 Potassium Chloride 100 ml @ 50 mls/hr Q2H PRN IV 06/15/17 07:00 06/17/17 18:35 Potassium Chloride 100 ml @ 50 mls/hr Q2H PRN IV 06/15/17 07:00 06/16/17 10:30 Potassium Chloride 100 ml @ 50 mls/hr Q2H PRN IV 06/15/17 07:00 Potassium Chloride 100 ml @ 25 mls/hr UNSCH PRN IV 06/15/17 07:00 (K-Phos) 2,000 mg Q4H PRN PO 06/15/17 07:00 (K-Phos) 2,000 mg UNSCH PRN PO/TUBE 06/15/17 07:00 Potassium Phosphate 30 mmol/ Sodium Chloride 260 ml @ 42 mls/hr UNSCH PRN IV 06/15/17 07:00 Sodium Phosphate 30 mmol/Sodium Chloride 250 ml @ 42 mls/hr UNSCH PRN IV 06/15/17 07:00 (Geodon Inj) 10 mg Q12H PRN IM 06/15/17 07:15 06/19/17 10:24 (Nutrisource Fiber Powder) 2 pack BID G-TUBE 06/15/17 09:00 06/27/17 20:03 (Tenex) 2 mg Q12HR PO 06/19/17 14:00 Future hold 06/23/17 09:59 (Senna Liq) 8.8 mg DAILY PO 06/23/17 09:00 06/27/17 08:08 (D50w (Vial) Inj) 50 ml UNSCH PRN IV PUSH 06/23/17 07:30 (Glucagon Inj) 1 mg UNSCH PRN OTHER 06/23/17 07:30 (NovoLIN R SUPPLEMENTAL SCALE) 1 Q4H SQ 06/23/17 07:30 06/23/17 15:30 (Zofran Inj) 4 mg Q8HR PRN IV PUSH 06/23/17 16:00 06/27/17 18:39 (Pepcid Inj) 20 mg Q12H IV PUSH 06/23/17 23:00 06/27/17 22:35 Piperacillin Sod/ Tazobactam Sod 100 ml @ 200 mls/hr Q6H IV 06/24/17 14:00 06/28/17 07:12 (Dilaudid Pf Inj) 0.5 mg Q4H PRN IV 06/25/17 22:15 06/26/17 10:46 (Reglan Inj) 10 mg Q8HR IV PUSH 06/27/17 22:00 06/28/17 06:00 Magnesium Sulfate/ Dextrose 100 ml @ 100 mls/hr Q1H IV 06/28/17 09:00 06/28/17 10:59 (Haldol Inj) 5 mg Q4H PRN IV PUSH 06/28/17 08:45 Lines PIV Past Medical History COPD Hypertension Hyperlipidemia CVA Schizoaffective disorder Bipolar disorder GERD Acute renal failure Arthritis Alcohol withdrawal seizures Past Surgical History Left partial pneumonectomy Left hip surgery Allergies: Coded Allergies: hydrochlorothiazide (Unverified Allergy, Intermediate, EFFECTS HIS SODIUM LEVEL, 02/12/17) PT STATES HE IS NOT ALLERGIC codeine (Unverified Adverse Reaction, Severe, 02/12/17) PT STATES HE IS NOT ALLERGIC Objective . Vital Signs Date Time Temp Pulse Resp B/P (MAP) Pulse Ox O2 Delivery O2 Flow Rate FiO2 06/28/17 08:32 98 50 06/28/17 08:00 40 06/28/17 08:00 98.5 56 20 116/63 (80) 96 06/28/17 08:00 56 06/28/17 06:00 62 06/28/17 04:25 99 50 06/28/17 04:00 40 06/28/17 04:00 61 06/28/17 04:00 98.4 62 18 104/59 (74) 97 06/28/17 02:00 58 06/28/17 01:46 96 50 06/28/17 00:00 40 06/28/17 00:00 98.2 60 25 139/72 (94) 94 06/28/17 00:00 61 06/27/17 22:03 96 50 06/27/17 22:00 60 06/27/17 22:00 122/79 (93) 06/27/17 21:45 66 189/86 (120) 06/27/17 20:00 56 06/27/17 20:00 40 06/27/17 20:00 98.3 59 26 158/77 (104) 95 06/27/17 19:45 99 50 06/27/17 18:00 71 06/27/17 16:10 94 40 06/27/17 16:00 64 06/27/17 16:00 40 06/27/17 16:00 98.6 64 34 175/74 (107) 95 06/27/17 14:00 55 06/27/17 13:37 97 40 06/27/17 12:00 40 06/27/17 12:00 58 06/27/17 12:00 99.1 58 22 155/79 (104) 95 06/27/17 10:00 50 . Laboratory Tests Test 06/27/17 07:25 White Blood Count 5.3 TH/MM3 Red Blood Count 3.22 MIL/MM3 Hemoglobin 9.5 GM/DL Hematocrit 28.7 % Mean Corpuscular Volume 89.1 FL Mean Corpuscular Hemoglobin 29.6 PG Mean Corpuscular Hemoglobin Concent 33.2 % Red Cell Distribution Width 14.5 % Platelet Count 226 TH/MM3 Mean Platelet Volume 8.0 FL Neutrophils (%) (Auto) 75.7 % Lymphocytes (%) (Auto) 15.1 % Monocytes (%) (Auto) 5.4 % Eosinophils (%) (Auto) 2.9 % Basophils (%) (Auto) 0.9 % Neutrophils # (Auto) 4.0 TH/MM3 Lymphocytes # (Auto) 0.8 TH/MM3 Monocytes # (Auto) 0.3 TH/MM3 Eosinophils # (Auto) 0.2 TH/MM3 Basophils # (Auto) 0.0 TH/MM3 CBC Comment DIFF FINAL Differential Comment Laboratory Tests Test 06/27/17 07:25 Blood Urea Nitrogen 9 MG/DL Creatinine 0.41 MG/DL Random Glucose 107 MG/DL Total Protein 5.6 GM/DL Albumin 1.5 GM/DL Calcium Level 8.0 MG/DL Alkaline Phosphatase 84 U/L Aspartate Amino Transf (AST/SGOT) 15 U/L Alanine Aminotransferase (ALT/SGPT) 21 U/L Total Bilirubin 0.8 MG/DL Sodium Level 138 MEQ/L Potassium Level 3.7 MEQ/L Chloride Level 104 MEQ/L Carbon Dioxide Level 20.9 MEQ/L Anion Gap 13 MEQ/L Estimat Glomerular Filtration Rate 213 ML/MIN Imaging Abdomen X-Ray 06/24/17 0600 Signed Impressions: Service Date/Time: Saturday, June 24, 2017 03:14 - CONCLUSION: Dilated transverse colon and no definite pneumatosis intestinalis or technique, however the patient's prior CT examination was suggestive of pneumatosis. Domingo Pollack MD Chest X-Ray 06/24/17 0000 Signed Impressions: Service Date/Time: Saturday, June 24, 2017 03:08 - CONCLUSION: Bibasilar atelectasis and/or infiltrate is seen. Domingo Pollack MD Chest X-Ray 06/23/17 0000 Signed Impressions: Service Date/Time: Friday, June 23, 2017 03:45 - CONCLUSION: No significant interval change Arvind Hernandez MD CT Angiography 06/23/17 0000 Signed Impressions: Service Date/Time: Friday, June 23, 2017 20:34 - CONCLUSION: 1. No evidence of pulmonary embolus. 2. Increased patchy bilateral pulmonary consolidation with mild thin-walled cavitation of focal consolidation in the right upper lobe. This finding could be related consolidation of an area of long with emphysema involvement. 3. Mild to moderate upper lobe pulmonary parenchymal emphysema is seen. Rosas Rowell MD Abdomen/Pelvis CT 06/23/17 0000 Signed Impressions: Service Date/Time: Friday, June 23, 2017 20:34 - CONCLUSION: 1. Bowel wall pneumatosis involving the cecum and proximal transverse colon. Findings are suspicious for ischemic colitis. Surrounding inflammatory change in the intra-abdominal fat. No portal venous gas or free air identified. 2. Prominent bilateral lower lobe pulmonary consolidation. Rosas Rowell MD Abdomen X-Ray 06/23/17 0000 Signed Impressions: Service Date/Time: Friday, June 23, 2017 03:51 - CONCLUSION: Diffuse mild gaseous distention of bowel Arvind Hernandez MD Chest X-Ray 06/23/17 0000 Signed Impressions: Service Date/Time: Friday, June 23, 2017 03:45 - CONCLUSION: No significant interval change Arvind Hernandez MD Abdomen X-Ray 06/23/17 0000 Signed Impressions: Service Date/Time: Friday, June 23, 2017 03:51 - CONCLUSION: Diffuse mild gaseous distention of bowel Arvind Hernandez MD Brain MRI 06/22/17 0000 Signed Impressions: Service Date/Time: Thursday, June 22, 2017 12:10 - CONCLUSION: All ischemic changes, negative for acute ischemic event. Negative for parenchymal hemorrhage. Usman Pimentel MD FACR Abdomen/Pelvis CT 06/14/17 0000 Signed Impressions: Service Date/Time: Wednesday, June 14, 2017 22:32 - CONCLUSION: 1. Increasing basilar lung consolidation since chest CT from June 04. 2. Mild ileus. No bowel obstruction, free air or free fluid. 3. Left hip replacement. Advanced osteoarthritis right hip. NG in stomach. Rectal tube present. Humphrey Weston MD Head CT 06/04/17 0000 Signed Impressions: Service Date/Time: Sunday, June 04, 2017 18:46 - CONCLUSION: 1. No significant change compared to 06/03/17. 2. No acute infarct, acute hemorrhage , mass effect or extra-axial fluid collection. 3. Scattered old lacunar infarcts within the bilateral basal ganglia. 4. Mild periventricular and subcortical white matter small vessel ischemic changes bilaterally. 5. Old right posterior parietal infarct. 6. Chronic opacification of right mastoid air cells. Mckay Stone MD Chest CT 06/04/17 0000 Signed Impressions: Service Date/Time: Sunday, June 04, 2017 18:49 - CONCLUSION: 1. Right mid lung field and posterior bibasilar patchiness consistent with probable areas of pneumonia and/or atelectasis. Clinical correlation is recommended. 2. Tiny bilateral pleural effusions. 3. Cardiomegaly and coronary artery calcifications. 4. Minimal scattered emphysematous changes bilaterally. Mckay Stone MD Physical Exam GENERAL: Opens eyes, focusing, on the vent, NAD SKIN: Cool, dry. No jaundice, rashes, or lesions. EYES: Pupils equal and round and reactive. Extraocular motions intact. No scleral icterus. No injection or drainage. NECK: trach in place , site ok CARDIOVASCULAR: Regular rate and rhythm without murmurs, gallops, or rubs. No JVD. Peripheral pulses symmetric. RESPIRATORY/CHEST: Symmetric, unlabored respirations. Clear to auscultation. Breath sounds equal bilaterally. No wheezes, rales, or rhonchi. GASTROINTESTINAL: Abdomen, still distended mild tenderness, not guarding, BS hypoactive. GENITOURINARY: Without palpable bladder distension. condom catheter in place with clear yellow MUSCULOSKELETAL: Extremities without clubbing, cyanosis, or edema. No joint tenderness or effusion noted. No calf tenderness. No mottling or clubbing. NEUROLOGICAL: moves all 4 extremities, awake, alert, follows commands PSYCHIATRIC: unable to assess LINE: No evidence of infection Assessment & Plan Remarks IMPRESSION Mental status change, PNA, E.coli, S/P Rx Acute VDRF, failure to wean Multiple med problems Leukocytosis, better Abdominal distention, diarrhea - C.diff negative - likely ischemic colitis C glabrata sepsis, S/P Rx New HCAP PNA (PSAE and E coli in sputum) PLAN Continue Zosyn to cover both PSAE and intraabd aerobic/anaerobic tamara Follow temps Monitor progress Weaning per CCM Karey Ayala MD Jun 28, 2017 09:31
[2017-06-28] MEDS: SODIUM CHLORIDE 0.9% FLUSH 10 ML FLUSH IV FLUSH SCH ×2 (09:42→20:48)
[2017-06-28] MEDS: MAGNESIUM SULFATE 1 GM PREMIX 100 ML IV SCH ×2 (09:42→10:42)
[2017-06-28] MEDS: SENNOSIDES SYRUP 8.8 MG/5 ML CUP PO SCH (09:43)
[2017-06-28] MEDS: guanFACINE HCL 1 MG TAB PO SCH ×2 (10:21→20:48)
[2017-06-28] MEDS: FAMOTIDINE 20 MG/2 ML VIAL IV PUSH SCH ×2 (10:42→20:47)
--- NOTE | 2017-06-28 16:46 | HHI.PR ---
Subjective Remarks 61 YOWM with VDRF,Trach,COPD On trach collar Started PO Sedated with Precedex No Fever Awake follows commands Objective Vital Signs Vital Signs Date Time Temp Pulse Resp B/P (MAP) Pulse Ox O2 Delivery O2 Flow Rate FiO2 06/28/17 16:00 50 06/28/17 14:00 62 06/28/17 12:09 97.6 63 32 116/66 (83) 92 06/28/17 12:00 50 06/28/17 12:00 63 06/28/17 10:43 50 06/28/17 10:00 62 06/28/17 08:32 98 50 06/28/17 08:30 45 06/28/17 08:00 40 06/28/17 08:00 98.5 56 20 116/63 (80) 96 06/28/17 08:00 56 06/28/17 06:00 62 06/28/17 04:25 99 50 06/28/17 04:00 40 06/28/17 04:00 61 06/28/17 04:00 98.4 62 18 104/59 (74) 97 06/28/17 02:00 58 06/28/17 01:46 96 50 06/28/17 00:00 40 06/28/17 00:00 98.2 60 25 139/72 (94) 94 06/28/17 00:00 61 06/27/17 22:03 96 50 06/27/17 22:00 60 06/27/17 22:00 122/79 (93) 06/27/17 21:45 66 189/86 (120) 06/27/17 20:00 56 06/27/17 20:00 40 06/27/17 20:00 98.3 59 26 158/77 (104) 95 06/27/17 19:45 99 50 06/27/17 18:00 71 I/O 06/27/17 06/27/17 06/27/17 06/28/17 06/28/17 06/28/17 07:00 15:00 23:00 07:00 15:00 23:00 Intake Total 1200 ml 1000 ml 447 ml 100 ml 300 ml Output Total 700 ml 2225 ml 600 ml Balance 500 ml 1000 ml -1778 ml -500 ml 300 ml IV Total 1200 ml 1000 ml 350 ml 100 ml 300 ml Tube Feeding 0 ml 97 ml Output Urine Total 400 ml 1825 ml 600 ml Stool Total 0 ml Gastric Drainage Total 300 ml 400 ml 0 ml # Bowel Movements 1 0 Result Diagram: 06/27/1772406/27/17724 Objective Remarks GENERAL: MBMN WM, on Vent, sedated SKIN: Warm and dry. HEAD: Normocephalic. EYES: No scleral icterus. No injection or drainage. NECK: Supple, trachea midline. No JVD or lymphadenopathy. CARDIOVASCULAR: Regular rate and rhythm without murmurs, gallops, or rubs. RESPIRATORY: Breath sounds equal bilaterally. No accessory muscle use. GASTROINTESTINAL: Abdomen soft, non-tender, nondistended. MUSCULOSKELETAL: No cyanosis, or edema. BACK: Nontender without obvious deformity. No CVA tenderness. A/P Assessment and Plan VDRF S/P Trach COPD COPD Schzoaffective disorder Bipolar disorder PLAN: Trach collar PMV trial Cont Abx Sputum culture Sedation with Precedex Syed Cuellar MD Jun 28, 2017 16:46
[2017-06-28] MEDS: ONDANSETRON HCL 4 MG/2 ML VIAL IV PUSH PRN (18:32)
[2017-06-29] VITALS (18 sets, daily range): BP systolic 109–150; BP diastolic 42–76; PULSE 47–76; RESP 23–30; TEMP 98.4–100; O2SAT 95–100
[2017-06-29] MEDS: PIPERACIL-TAZO 4.5 GM PREMIX 100 ML IV SCH ×4 (00:28→19:57)
[2017-06-29] MEDS: INSULIN NovoLIN REGULAR SUPPLEMENTAL SCALE SQ SCH ×6 (03:30→23:01)
[2017-06-29] MEDS: CHLORHEXIDINE GLUCONATE 2 % 1 PACK (2 CLOTHS) TOP SCH (04:00)
[2017-06-29] MEDS: METOCLOPRAMIDE HCL 10 MG/2 ML VIAL IV PUSH SCH ×3 (05:13→21:25)
[2017-06-29] MEDS: DEXMEDETOMIDINE INJ 1,000 MCG in SODIUM CHLOR 0.9% 250 ML INJ 240 ML IV PRN ×2 (05:13→21:47)
[2017-06-29] MEDS: DEXT 5%-NACL 0.9% 1000 ML INJ 1,000 ML IV SCH (07:48)
[2017-06-29] MEDS: guanFACINE HCL 1 MG TAB PO SCH ×2 (09:00→19:58)
[2017-06-29] MEDS: NUTRISOURCE FIBER POWDER 1 PACK G-TUBE SCH ×2 (09:00→19:57)
[2017-06-29] MEDS: SENNOSIDES SYRUP 8.8 MG/5 ML CUP PO SCH (09:00)
--- NOTE | 2017-06-29 09:26 | HHI.IDPN ---
Subjective Subjective Remarks ID COVERAGE 61-year-old male with a history of COPD, hypertension, hyperlipidemia, CVA, schizoaffective disorder, bipolar disorder, GERD, renal failure, and arthritis presented [facility] the [facility]. H/o right lower lobe pneumonia in mid May. Head CT w/o acute findings Chest x-ray shows consistent with possible pneumonia. Has been intubated. Has been on vent and now S/P trach 06/15 Also with PEG Notes reviewed Temps ok On CPAP, looks comfortable PEG to drainage, has increased output BP ok CT showed pneumotosis coli WBC normal Surgery has signed off Antibiotics Current Medications Zosyn Medications (Trade) Dose Ordered Sig/Solange Route Start Time Stop Time Status Last Admin (Narcan Inj) 0.4 mg UNSCH PRN IV PUSH 06/03/17 21:45 (Duoneb Neb) 1 ampule Q2HR NEB PRN NEB 06/03/17 22:45 06/28/17 04:23 (Lipitor) 40 mg HS PO 06/04/17 21:00 Future Hold 06/22/17 20:49 (Cogentin) 1 mg HS PO 06/04/17 21:00 Future Hold 06/22/17 20:49 (Aricept) 5 mg HS PO 06/04/17 21:00 Future Hold 06/22/17 21:18 (risperDAL) 1 mg HS PO 06/04/17 21:00 Future Hold 06/22/17 20:49 (Flomax) 0.4 mg HS PO 06/04/17 21:00 Future Hold 06/22/17 20:49 (Effexor Xr) 150 mg DAILY PO 06/04/17 09:00 Future Hold 06/23/17 09:59 Miscellaneous Information 1 Q361D XX 06/04/17 03:45 (Chlorhexidine 2% Cloth) Taper DAILY@04 TOP 06/04/17 04:00 05/31/18 03:59 06/28/17 03:56 (Chlorhexidine 2% Cloth) 3 pack UNSCH PRN TOP 06/04/17 03:45 (Norvasc) 5 mg DAILY PO 06/04/17 12:00 Future Hold 06/22/17 08:21 (Apresoline Inj) 10 mg Q4H PRN IV PUSH 06/04/17 13:00 06/27/17 21:52 (NS Flush) 2 ml UNSCH PRN IV FLUSH 06/04/17 16:45 06/27/17 21:53 (NS Flush) 2 ml BID IV FLUSH 06/04/17 21:00 06/28/17 20:48 (Peridex 0.12% Liq) 15 ml BID@08,20 MT 06/04/17 20:00 06/28/17 20:48 (Trandate Inj) 20 mg Q4H PRN IV PUSH 06/04/17 17:00 06/10/17 15:35 (Lovenox Inj) 40 mg Q24H SQ 06/05/17 17:00 Future Hold 06/16/17 15:33 Dexmedetomidine HCl 1000 mcg/ Sodium Chloride 250 ml @ 4.95 mls/hr TITRATE PRN IV 06/10/17 09:30 06/29/17 05:13 (Tylenol) 650 mg Q4H PRN PO 06/10/17 12:15 Future Hold 06/23/17 02:33 (Pepcid) 20 mg Q12HR PO 06/10/17 21:00 Future Hold 06/23/17 09:58 (Mycostatin Powder) 1 applic Q12HR PRN TOPICAL 06/14/17 11:00 (Mag-Ox) 800 mg UNSCH PRN PO 06/15/17 07:00 Magnesium Sulfate 4 gm/Sodium Chloride 100 ml @ 50 mls/hr UNSCH PRN IV 06/15/17 07:00 Magnesium Sulfate 2 gm/Sodium Chloride 100 ml @ 50 mls/hr UNSCH PRN IV 06/15/17 07:00 Potassium Chloride 100 ml @ 50 mls/hr Q2H PRN IV 06/15/17 07:00 06/17/17 18:35 Potassium Chloride 100 ml @ 50 mls/hr Q2H PRN IV 06/15/17 07:00 06/16/17 10:30 Potassium Chloride 100 ml @ 50 mls/hr Q2H PRN IV 06/15/17 07:00 Potassium Chloride 100 ml @ 25 mls/hr UNSCH PRN IV 06/15/17 07:00 (K-Phos) 2,000 mg Q4H PRN PO 06/15/17 07:00 (K-Phos) 2,000 mg UNSCH PRN PO/TUBE 06/15/17 07:00 Potassium Phosphate 30 mmol/ Sodium Chloride 260 ml @ 42 mls/hr UNSCH PRN IV 06/15/17 07:00 Sodium Phosphate 30 mmol/Sodium Chloride 250 ml @ 42 mls/hr UNSCH PRN IV 06/15/17 07:00 (Geodon Inj) 10 mg Q12H PRN IM 06/15/17 07:15 06/19/17 10:24 (Nutrisource Fiber Powder) 2 pack BID G-TUBE 06/15/17 09:00 06/28/17 20:48 (Tenex) 2 mg Q12HR PO 06/19/17 14:00 Future hold 06/28/17 20:48 (Senna Liq) 8.8 mg DAILY PO 06/23/17 09:00 06/28/17 09:43 (D50w (Vial) Inj) 50 ml UNSCH PRN IV PUSH 06/23/17 07:30 (Glucagon Inj) 1 mg UNSCH PRN OTHER 06/23/17 07:30 (NovoLIN R SUPPLEMENTAL SCALE) 1 Q4H SQ 06/23/17 07:30 06/23/17 15:30 (Zofran Inj) 4 mg Q8HR PRN IV PUSH 06/23/17 16:00 06/28/17 18:32 (Pepcid Inj) 20 mg Q12H IV PUSH 06/23/17 23:00 06/28/17 20:47 Piperacillin Sod/ Tazobactam Sod 100 ml @ 200 mls/hr Q6H IV 06/24/17 14:00 06/29/17 07:48 (Dilaudid Pf Inj) 0.5 mg Q4H PRN IV 06/25/17 22:15 06/26/17 10:46 (Reglan Inj) 10 mg Q8HR IV PUSH 06/27/17 22:00 06/29/17 05:13 (Haldol Inj) 5 mg Q4H PRN IV PUSH 06/28/17 08:45 Dextrose/Sodium Chloride 1,000 ml @ 60 mls/hr [id number] IV 06/29/17 07:30 06/29/17 07:48 Lines PIV Past Medical History COPD Hypertension Hyperlipidemia CVA Schizoaffective disorder Bipolar disorder GERD Acute renal failure Arthritis Alcohol withdrawal seizures Past Surgical History Left partial pneumonectomy Left hip surgery Allergies: Coded Allergies: hydrochlorothiazide (Unverified Allergy, Intermediate, EFFECTS HIS SODIUM LEVEL, 02/12/17) PT STATES HE IS NOT ALLERGIC codeine (Unverified Adverse Reaction, Severe, 02/12/17) PT STATES HE IS NOT ALLERGIC Objective . Vital Signs Date Time Temp Pulse Resp B/P (MAP) Pulse Ox O2 Delivery O2 Flow Rate FiO2 06/29/17 08:35 40 06/29/17 08:33 96 40 06/29/17 08:00 45 06/29/17 08:00 51 06/29/17 08:00 98.5 51 26 142/42 (75) 97 06/29/17 06:00 50 06/29/17 04:00 98.9 47 23 141/70 (93) 97 06/29/17 04:00 98 45 06/29/17 04:00 45 06/29/17 04:00 47 06/29/17 02:00 55 06/29/17 01:39 99 45 06/29/17 00:00 45 06/29/17 00:00 98.9 58 26 146/76 (99) 98 06/29/17 00:00 58 06/28/17 22:25 96 45 06/28/17 22:00 57 06/28/17 20:34 100 45 06/28/17 20:00 99.8 62 21 127/72 (90) 98 06/28/17 20:00 62 06/28/17 20:00 45 06/28/17 18:00 77 06/28/17 16:00 50 06/28/17 16:00 66 06/28/17 16:00 99.4 66 38 135/70 (91) 84 06/28/17 14:00 62 06/28/17 12:09 97.6 63 32 116/66 (83) 92 06/28/17 12:00 50 06/28/17 12:00 63 06/28/17 10:43 50 06/28/17 10:00 62 Imaging Abdomen X-Ray 06/24/17 0600 Signed Impressions: Service Date/Time: Saturday, June 24, 2017 03:14 - CONCLUSION: Dilated transverse colon and no definite pneumatosis intestinalis or technique, however the patient's prior CT examination was suggestive of pneumatosis. Domingo Pollack MD Chest X-Ray 06/24/17 0000 Signed Impressions: Service Date/Time: Saturday, June 24, 2017 03:08 - CONCLUSION: Bibasilar atelectasis and/or infiltrate is seen. Domingo Pollack MD Chest X-Ray 06/23/17 0000 Signed Impressions: Service Date/Time: Friday, June 23, 2017 03:45 - CONCLUSION: No significant interval change Arvind Hernandez MD CT Angiography 06/23/17 0000 Signed Impressions: Service Date/Time: Friday, June 23, 2017 20:34 - CONCLUSION: 1. No evidence of pulmonary embolus. 2. Increased patchy bilateral pulmonary consolidation with mild thin-walled cavitation of focal consolidation in the right upper lobe. This finding could be related consolidation of an area of long with emphysema involvement. 3. Mild to moderate upper lobe pulmonary parenchymal emphysema is seen. Rosas Rowell MD Abdomen/Pelvis CT 06/23/17 0000 Signed Impressions: Service Date/Time: Friday, June 23, 2017 20:34 - CONCLUSION: 1. Bowel wall pneumatosis involving the cecum and proximal transverse colon. Findings are suspicious for ischemic colitis. Surrounding inflammatory change in the intra-abdominal fat. No portal venous gas or free air identified. 2. Prominent bilateral lower lobe pulmonary consolidation. Rosas Rowell MD Abdomen X-Ray 06/23/17 0000 Signed Impressions: Service Date/Time: Friday, June 23, 2017 03:51 - CONCLUSION: Diffuse mild gaseous distention of bowel Arvind Hernandez MD Chest X-Ray 06/23/17 0000 Signed Impressions: Service Date/Time: Friday, June 23, 2017 03:45 - CONCLUSION: No significant interval change Arvind Hernandez MD Abdomen X-Ray 06/23/17 0000 Signed Impressions: Service Date/Time: Friday, June 23, 2017 03:51 - CONCLUSION: Diffuse mild gaseous distention of bowel Arvind Hernandez MD Brain MRI 06/22/17 0000 Signed Impressions: Service Date/Time: Thursday, June 22, 2017 12:10 - CONCLUSION: All ischemic changes, negative for acute ischemic event. Negative for parenchymal hemorrhage. Usman Pimentel MD FACR Abdomen/Pelvis CT 06/14/17 0000 Signed Impressions: Service Date/Time: Wednesday, June 14, 2017 22:32 - CONCLUSION: 1. Increasing basilar lung consolidation since chest CT from June 04. 2. Mild ileus. No bowel obstruction, free air or free fluid. 3. Left hip replacement. Advanced osteoarthritis right hip. NG in stomach. Rectal tube present. Humphrey Weston MD Head CT 06/04/17 0000 Signed Impressions: Service Date/Time: Sunday, June 04, 2017 18:46 - CONCLUSION: 1. No significant change compared to 06/03/17. 2. No acute infarct, acute hemorrhage , mass effect or extra-axial fluid collection. 3. Scattered old lacunar infarcts within the bilateral basal ganglia. 4. Mild periventricular and subcortical white matter small vessel ischemic changes bilaterally. 5. Old right posterior parietal infarct. 6. Chronic opacification of right mastoid air cells. Mckay Stone MD Chest CT 06/04/17 0000 Signed Impressions: Service Date/Time: Sunday, June 04, 2017 18:49 - CONCLUSION: 1. Right mid lung field and posterior bibasilar patchiness consistent with probable areas of pneumonia and/or atelectasis. Clinical correlation is recommended. 2. Tiny bilateral pleural effusions. 3. Cardiomegaly and coronary artery calcifications. 4. Minimal scattered emphysematous changes bilaterally. Mckay Stone MD Physical Exam GENERAL: Opens eyes, focusing, on the vent, NAD. Comfortable on CPAP SKIN: Cool, dry. No generalized rash EYES: Pupils equal and round and reactive. Extraocular motions intact. No scleral icterus. No injection or drainage. NECK: trach in place , site ok CARDIOVASCULAR: Regular rate and rhythm without murmurs, gallops, or rubs. No JVD. Peripheral pulses symmetric. RESPIRATORY/CHEST: Symmetric, unlabored respirations. Clear to auscultation. Breath sounds equal bilaterally. No wheezes, rales, or rhonchi. GASTROINTESTINAL: Abdomen, still distended min tenderness, not guarding, BS hypoactive. GENITOURINARY: Without palpable bladder distension. condom catheter in place with clear yellow MUSCULOSKELETAL: Extremities without clubbing, cyanosis, or edema. No joint tenderness or effusion noted. No calf tenderness. No mottling or clubbing. NEUROLOGICAL: moves all 4 extremities, awake, alert, follows commands PSYCHIATRIC: cooperative LINE: No evidence of infection Assessment & Plan Remarks IMPRESSION Mental status change, PNA, E.coli, S/P Rx Acute VDRF, failure to wean Multiple med problems Leukocytosis, better Abdominal distention, diarrhea - C.diff negative - likely ischemic colitis C glabrata sepsis, S/P Rx New HCAP PNA (PSAE and E coli in sputum) PLAN Continue Zosyn to cover both PSAE and intraabd aerobic/anaerobic tamara Follow temps Monitor progress Weaning per CCM Karey Ayala MD Jun 29, 2017 09:26
--- NOTE | 2017-06-29 10:04 | HHI.GIFU ---
Subjective Remarks This is a reconsult. This is 61-year-old male with a history of COPD, hypertension, hyperlipidemia, CVA, schizoaffective disorder, bipolar disorder, GERD, renal failure, and arthritis who presented to the emergency room on 2016 from a [facility] facility for evaluation of altered mental status. He was found to have Pneumonia and developed respiratory failure. Abdominal soft. He under went EGD/PEG tube with our services on 06/17/17. Patient developed acute elevation on WBC, CT abdomen pelvis done on 06/23 revealed pneumatosis involving cecum and transverse colon suggesting ischemic colitis. Gen. surgery consulted and patient evaluated by Dr. Monroe today who recommends medical management at this time with IV fluids and continuation of antibiotics. Patient has not been tolerating tube feeds and currently TF on hold PEG tube to suction, green gastric out put noted in canister. Currently pt on mechanical ventilation via tracheostomy. Awake. Denies abdominal pain Has bowel sounds. No rectal bleeding or hematemesis reported. Abd X-ray on 06/26 No visible change in dilated loop of transverse colon. (Xu Frazier) Objective Vitals I&O Vital Signs Date Time Temp Pulse Resp B/P (MAP) Pulse Ox O2 Delivery O2 Flow Rate FiO2 06/29/17 08:35 40 06/29/17 08:33 96 40 06/29/17 08:00 45 06/29/17 08:00 51 06/29/17 08:00 98.5 51 26 142/42 (75) 97 06/29/17 06:00 50 06/29/17 04:00 98.9 47 23 141/70 (93) 97 06/29/17 04:00 98 45 06/29/17 04:00 45 06/29/17 04:00 47 06/29/17 02:00 55 06/29/17 01:39 99 45 06/29/17 00:00 45 06/29/17 00:00 98.9 58 26 146/76 (99) 98 06/29/17 00:00 58 06/28/17 22:25 96 45 06/28/17 22:00 57 06/28/17 20:34 100 45 06/28/17 20:00 99.8 62 21 127/72 (90) 98 06/28/17 20:00 62 06/28/17 20:00 45 06/28/17 18:00 77 06/28/17 16:00 50 06/28/17 16:00 66 06/28/17 16:00 99.4 66 38 135/70 (91) 84 06/28/17 14:00 62 06/28/17 12:09 97.6 63 32 116/66 (83) 92 06/28/17 12:00 50 06/28/17 12:00 63 06/28/17 10:43 50 06/28/17 10:00 62 I/O 06/28/17 06/28/17 06/28/17 06/29/17 06/29/17 06/29/17 07:00 15:00 23:00 07:00 15:00 23:00 Intake Total 100 ml 300 ml 550 ml 538 ml Output Total 600 ml 1350 ml 1600 ml Balance -500 ml 300 ml -800 ml -1062 ml Intake Oral 200 ml IV Total 100 ml 300 ml 350 ml 388 ml Tube Irrigant 150 ml Output Urine Total 600 ml 1050 ml 100 ml Gastric Drainage Total 0 ml 300 ml 1500 ml # Bowel Movements 0 1 Laboratory Date/Time Source Procedure Growth Status 06/19/17 01:35 Blood Peripheral Aerobic Blood Culture - Final NO GROWTH IN 5 DAYS Complete 06/19/17 01:35 Blood Peripheral Anaerobic Blood Culture - Final NO GROWTH IN 5 DAYS Complete 06/21/17 13:30 Sputum Expectorated Sputum Gram Stain - Final Complete 06/21/17 13:30 Sputum Culture - Final Escherichia Coli Pseudomonas Aeruginosa Complete 06/10/17 12:45 Urine Catheterized Urine Urine Culture - Final NO GROWTH IN 48 HOURS. Complete Imaging Last Impressions Abdomen X-Ray 06/26/17 0600 Signed Impressions: Service Date/Time: Monday, June 26, 2017 03:18 - CONCLUSION: No visible change in dilated loop of transverse colon. Domingo Pollack MD Chest X-Ray 06/24/17 0000 Signed Impressions: Service Date/Time: Saturday, June 24, 2017 03:08 - CONCLUSION: Bibasilar atelectasis and/or infiltrate is seen. Domingo Pollack MD CT Angiography 06/23/17 0000 Signed Impressions: Service Date/Time: Friday, June 23, 2017 20:34 - CONCLUSION: 1. No evidence of pulmonary embolus. 2. Increased patchy bilateral pulmonary consolidation with mild thin-walled cavitation of focal consolidation in the right upper lobe. This finding could be related consolidation of an area of long with emphysema involvement. 3. Mild to moderate upper lobe pulmonary parenchymal emphysema is seen. Rosas Rowell MD Abdomen/Pelvis CT 06/23/17 0000 Signed Impressions: Service Date/Time: Friday, June 23, 2017 20:34 - CONCLUSION: 1. Bowel wall pneumatosis involving the cecum and proximal transverse colon. Findings are suspicious for ischemic colitis. Surrounding inflammatory change in the intra-abdominal fat. No portal venous gas or free air identified. 2. Prominent bilateral lower lobe pulmonary consolidation. Rosas Rowell MD Brain MRI 06/22/17 0000 Signed Impressions: Service Date/Time: Thursday, June 22, 2017 12:10 - CONCLUSION: All ischemic changes, negative for acute ischemic event. Negative for parenchymal hemorrhage. Usman Pimentel MD FACR Head CT 06/04/17 0000 Signed Impressions: Service Date/Time: Sunday, June 04, 2017 18:46 - CONCLUSION: 1. No significant change compared to 06/03/17. 2. No acute infarct, acute hemorrhage , mass effect or extra-axial fluid collection. 3. Scattered old lacunar infarcts within the bilateral basal ganglia. 4. Mild periventricular and subcortical white matter small vessel ischemic changes bilaterally. 5. Old right posterior parietal infarct. 6. Chronic opacification of right mastoid air cells. Mckay Stone MD Chest CT 06/04/17 0000 Signed Impressions: Service Date/Time: Sunday, June 04, 2017 18:49 - CONCLUSION: 1. Right mid lung field and posterior bibasilar patchiness consistent with probable areas of pneumonia and/or atelectasis. Clinical correlation is recommended. 2. Tiny bilateral pleural effusions. 3. Cardiomegaly and coronary artery calcifications. 4. Minimal scattered emphysematous changes bilaterally. Mckay Stone MD Physical Exam HEENT: normocephalic; atraumatic; no jaundice. trach to vent CHEST: coarse on vent via trach CARDIAC: irr HR ABDOMEN: Soft, nondistended, nontender; no hepatosplenomegaly; bowel sounds are present in all four quadrants. PEG tube site clean and dry EXTREMITIES: No clubbing, cyanosis, or edema. SKIN: Normal; no rash; no jaundice. STREAM CONTROL OFFICER: nonverbal, does not follow commands, eyes open, on vent (Xu Frazier) Assessment and Plan Plan ASSESSMENT: - ischemic colitis/ileus- This is 61-year-old male with a history of COPD, hypertension, hyperlipidemia, CVA, schizoaffective disorder, bipolar disorder, GERD, renal failure, and arthritis who presented to the emergency room on 2016 from a [facility] facility for evaluation of altered mental status. He was found to have Pneumonia and developed respiratory failure. Abdominal soft. He under went EGD/PEG tube with our services on 06/17/17. Patient developed acute elevation on WBC, CT abdomen pelvis done on 06/23 revealed pneumatosis involving cecum and transverse colon suggesting ischemic colitis. Gen. surgery consulted and patient evaluated by Dr. Monroe today who recommends medical management at this time with IV fluids and continuation of antibiotics. Patient has not been tolerating tube feeds and currently TF on hold PEG tube to suction, green gastric out put noted in canister. Currently pt on mechanical ventilation via tracheostomy. Awake. Denies abdominal pain Has bowel sounds. No rectal bleeding or hematemesis reported. Abd X-ray on 06/26 No visible change in dilated loop of transverse colon. - Leucocytosis- resolved, ID on the case - Chronic respiratory failure- trach PLAN: - NPO - Cont. PEG tube to suction - KUB today - Cont. abx - Possible colonoscopy on Saturday - Supportive care - Patient seen and examined by Dr. Root and myself and this note is written on his behalf. (Xu Frazier) Physician Comments Known to our service. Plan as above, will follow up with you. (Linette Root MD) Xu Frazier Jun 29, 2017 10:04 Linette Root MD Jun 29, 2017 10:41
[2017-06-29] MEDS: SODIUM CHLORIDE 0.9% FLUSH 10 ML FLUSH IV FLUSH SCH ×2 (10:51→19:57)
[2017-06-29] MEDS: CHLORHEXIDINE 0.12% (ORAL KIT) 15 ML CUP MT SCH ×2 (10:51→19:56)
--- NOTE | 2017-06-29 11:05 | RADRPT ---
EXAM DATE/TIME: 06/29/2017 10:21 [facility] COMPARISON: ABDOMEN KUB ONLY, June 26, 2017, 3:18. INDICATIONS : Distention, abdominal pain. MEDICAL HISTORY : None. SURGICAL HISTORY : None. ENCOUNTER: Subsequent ACUITY: 3 weeks PAIN SCORE: Non-responsive. LOCATION: Bilateral abdomen FINDINGS: There is a G-tube in place. Air is seen within distended segments of small and large bowel in the upp er and mid abdomen. Free air is not seen. There is a left hip prosthesis in place. There is very prom inent degenerative change at the right hip joint. CONCLUSION: Persistent distended small and large bowel. Arvind Iyer MD on June 29, 2017 at 10:59 Board Certified Radiologist. This report was verified electronically.
[2017-06-29] MEDS: FAMOTIDINE 20 MG/2 ML VIAL IV PUSH SCH ×2 (11:21→23:01)
--- NOTE | 2017-06-29 14:27 | HHI.PR ---
Subjective Remarks 61 YOWM with VDRF,Trach,COPD Tolerates CPAP Started PO On Precedex No Fever Awake follows commands Objective Vital Signs Vital Signs Date Time Temp Pulse Resp B/P (MAP) Pulse Ox O2 Delivery O2 Flow Rate FiO2 06/29/17 12:00 98.4 54 24 146/72 (96) 100 06/29/17 12:00 54 06/29/17 12:00 45 06/29/17 11:50 100 40 06/29/17 10:00 50 06/29/17 08:35 40 06/29/17 08:33 96 40 06/29/17 08:00 45 06/29/17 08:00 51 06/29/17 08:00 98.5 51 26 142/42 (75) 97 06/29/17 06:00 50 06/29/17 04:00 98.9 47 23 141/70 (93) 97 06/29/17 04:00 98 45 06/29/17 04:00 45 06/29/17 04:00 47 06/29/17 02:00 55 06/29/17 01:39 99 45 06/29/17 00:00 45 06/29/17 00:00 98.9 58 26 146/76 (99) 98 06/29/17 00:00 58 06/28/17 22:25 96 45 06/28/17 22:00 57 06/28/17 20:34 100 45 06/28/17 20:00 99.8 62 21 127/72 (90) 98 06/28/17 20:00 62 06/28/17 20:00 45 06/28/17 18:00 77 06/28/17 16:00 50 06/28/17 16:00 66 06/28/17 16:00 99.4 66 38 135/70 (91) 84 I/O 06/28/17 06/28/17 06/28/17 06/29/17 06/29/17 06/29/17 07:00 15:00 23:00 07:00 15:00 23:00 Intake Total 100 ml 300 ml 550 ml 538 ml Output Total 600 ml 1350 ml 1600 ml Balance -500 ml 300 ml -800 ml -1062 ml Intake Oral 200 ml IV Total 100 ml 300 ml 350 ml 388 ml Tube Irrigant 150 ml Output Urine Total 600 ml 1050 ml 100 ml Gastric Drainage Total 0 ml 300 ml 1500 ml # Bowel Movements 0 1 Result Diagram: 06/27/1772406/27/17724 Objective Remarks GENERAL: MBMN WM, on Vent, sedated SKIN: Warm and dry. HEAD: Normocephalic. EYES: No scleral icterus. No injection or drainage. NECK: Supple, trachea midline. No JVD or lymphadenopathy. CARDIOVASCULAR: Regular rate and rhythm without murmurs, gallops, or rubs. RESPIRATORY: Breath sounds equal bilaterally. No accessory muscle use. GASTROINTESTINAL: Abdomen soft, non-tender, nondistended. MUSCULOSKELETAL: No cyanosis, or edema. BACK: Nontender without obvious deformity. No CVA tenderness. A/P Assessment and Plan VDRF S/P Trach COPD COPD Schzoaffective disorder Bipolar disorder PLAN: Trach collar PMV trial Cont Abx Sputum culture Sedation with Precedex Feeding tube to suction Syed Cuellar MD Jun 29, 2017 14:27
--- NOTE | 2017-06-29 15:35 | HHI.CCPN ---
Subjective Remarks/Hospital Course 06/04: Mr. Reilly is a 61-year-old male with a history of COPD, hypertension, hyperlipidemia, CVA, schizoaffective disorder, bipolar disorder, GERD, renal failure, and arthritis who presented to the emergency room on 06/03/2017 from a [facility]-way facility for evaluation of altered mental status. Upon review of the medical records from the half-way facility, it is noted he had a right lower lobe pneumonia diagnosed mid May. Head CT showed no acute infarct, acute hemorrhage, mass effect, or extra-axial fluid collection but scattered old lacunar infarcts within the bilateral basal ganglia. Mild periventricular and subcortical white matter small vessel ischemic changes bilaterally. Chest x-ray shows scattered bibasilar patchiness consistent with possible pneumonia. Per documentation : While in the ER, patient was in moderate respiratory distress with tachypnea and utilization of accessory abdominal muscles to breathe. His lung sounds are bilaterally congested and he is confused and a poor historian. His speech is slightly slurred but this is not a new finding. He was noted to be on 5 L nasal cannula with oxygen saturation of 94% in the emergency room. Patient was admitted to the ICU by the hospitalist service. He was initiated on heparin drip for suspicion of PE. He was also noted to have an elevated CPK and creatinine. His blood pressures were running high overnight. This afternoon patient developed worsening agitation and disorientation and confusion. His heparin was stopped earlier by Dr. Garcia due to low suspicion for PE. Patient developed worsening respiration status with respirations in the 30s and O2 sats in the mid 80s. Critical care medicine was consulted. Patient was emergently intubated by Dr. Elvira Gutierrez and I subsequently took over patient care. When I evaluated the patient he had been sedated for the intubation and is being placed on mechanical ventilation. History was obtained by discussion with Dr. Garcia, Dr. Gutierrez and ICU nursing staff as well as documentation in the chart. 06/05: Remains sedated, orally intubated on mechanical ventilation. 06/06: Sedated, orally intubated on mechanical ventilation. Failed C Pap trial today. Got extremely anxious on lightening sedation. 06/07 No events overnight. Sedated and intubated. Afebrile. 06/08 No events overnight. Sedated with Diprivan, Fentanyl and intubated. 06/09 Patient remains sedated and intubated. Afebrile.Did not tolerate CPAP trials yesterday. 06/10 Patient is sedated with Fentanyl and Diprivan. Afebrile. Did not tolerate CPAP yesterday as he became restless, agitated and tachycardic. 06/11 Patient remains sedated and intubated. Spiked fever with Tmax 101.1 06/12 No events overnight. Sedated and intubated. Afebrile. 06/13 Patient remains intubated and sedated with Diprivan, fentanyl in addition he is on Precedex drip. T:100.0 06/14 Patient remains sedated and intubated. Afebrile. Did not tolerate CPAP trials yesterday as he became tahypenic, tachycardic and restless. 06/15: agitation persists. respiratory failure persists. severely volume overloaded. has been intubated for almost 2 weeks. may require trach. CT abd/ pelvis without overt acute disease. no other source for fungemia. 06/16: s/p trach yesterday. no significant changes. 06/17: plan for PEG today. agitation persists with significant delirium. no other significant changes. 06/18: s/p PEG placement. weaning off sedation. still failing cpap trials. 06/19: cannot wean off precedex: agitated delirium persists. also still failing cpap trials. 06/20 No events overnight. On Precedex drip for agitation. T: 100.1 last night. 06/21 No events overnight. Remains on Precedex drip. Afebrile. 06/22 Patient is sedated with Fentanyl and Precedex. Afebrile. For MRI brain today. 06/23 Patient became hypotensive overnight and had episode of desaturation with says in mid 80's. Given 500ml 5% Albumin now off sedation ( Fentanyl and Precedex held). BP is better. In addition he was given Dulcolax suppos. and Mg citrate now having BM's. KUB this morning showed diffuse mild gaseous distention of bowel. FIO2 requirements is better now on 50% FIO2 with PEEP: 10 from FIO2 75 % overnight. CXR unchanged ( Consolidation LLL and Atelectasis right lung base) . T:99.9 06/24: Remains on mechanical ventilation via tracheostomy. CT abdomen pelvis done on 06/23 revealed pneumatosis involving cecum and transverse colon suggesting ischemic colitis. Gen. surgery consulted and patient evaluated by Dr. Monroe today who recommends medical management at this time with IV fluids and continuation of antibiotics. Patient not tolerating tube feeds and has abdominal distention. Maintaining blood pressure currently. 06/25: Remains on mechanical ventilation via tracheostomy. Does not appear to be in any acute distress. Still nothing by mouth. Being followed by general surgery for pneumatosis involving cecum and transverse colon. 06/26: Remains on mechanical ventilation via tracheostomy. Awake. Denies abdominal pain this morning. Has bowel sounds. Abdominal less distended. 06/27: no improvements. afebrile. restarting tube feeds slowly. 06/28: tube feeds held overnight for high residuals. reglan iv started. tolerated t-piece yesterday for short period. 06/29: In bed, awake and alert. On mechanical ventilation via tracheostomy. Not tolerating tube feeds with high residuals from PEG tube on suction. Objective Vital Signs Date Time Temp Pulse Resp B/P (MAP) Pulse Ox O2 Delivery O2 Flow Rate FiO2 06/29/17 14:00 58 06/29/17 12:00 98.4 24 146/72 (96) 100 06/29/17 12:00 45 Intake and Output 06/29/17 06/29/17 06/30/17 08:00 16:00 00:00 Intake Total 538 ml Output Total 1600 ml Balance -1062 ml Result Diagram: 06/27/17 0725 06/27/17 0725 Imaging Last 48 hours Impressions Abdomen X-Ray 06/24/17 0600 Signed Impressions: Service Date/Time: Saturday, June 24, 2017 03:14 - CONCLUSION: Dilated transverse colon and no definite pneumatosis intestinalis or technique, however the patient's prior CT examination was suggestive of pneumatosis. Domingo Pollack MD Chest X-Ray 06/24/17 0000 Signed Impressions: Service Date/Time: Saturday, June 24, 2017 03:08 - CONCLUSION: Bibasilar atelectasis and/or infiltrate is seen. Domingo Pollack MD Chest X-Ray 06/23/17 0000 Signed Impressions: Service Date/Time: Friday, June 23, 2017 03:45 - CONCLUSION: No significant interval change Arvind Hernandez MD CT Angiography 06/23/17 0000 Signed Impressions: Service Date/Time: Friday, June 23, 2017 20:34 - CONCLUSION: 1. No evidence of pulmonary embolus. 2. Increased patchy bilateral pulmonary consolidation with mild thin-walled cavitation of focal consolidation in the right upper lobe. This finding could be related consolidation of an area of long with emphysema involvement. 3. Mild to moderate upper lobe pulmonary parenchymal emphysema is seen. Rosas Rowell MD Abdomen/Pelvis CT 06/23/17 0000 Signed Impressions: Service Date/Time: Friday, June 23, 2017 20:34 - CONCLUSION: 1. Bowel wall pneumatosis involving the cecum and proximal transverse colon. Findings are suspicious for ischemic colitis. Surrounding inflammatory change in the intra-abdominal fat. No portal venous gas or free air identified. 2. Prominent bilateral lower lobe pulmonary consolidation. Rosas Rowell MD Abdomen X-Ray 06/23/17 0000 Signed Impressions: Service Date/Time: Friday, June 23, 2017 03:51 - CONCLUSION: Diffuse mild gaseous distention of bowel Arvind Hernandez MD Last Impressions Chest X-Ray 06/23/17 0000 Signed Impressions: Service Date/Time: Friday, June 23, 2017 03:45 - CONCLUSION: No significant interval change Arvind Hernandez MD Abdomen X-Ray 06/23/17 0000 Signed Impressions: Service Date/Time: Friday, June 23, 2017 03:51 - CONCLUSION: Diffuse mild gaseous distention of bowel Arvind Hernandez MD Brain MRI 06/22/17 0000 Signed Impressions: Service Date/Time: Thursday, June 22, 2017 12:10 - CONCLUSION: All ischemic changes, negative for acute ischemic event. Negative for parenchymal hemorrhage. Usman Pimentel MD FACR Abdomen/Pelvis CT 06/14/17 0000 Signed Impressions: Service Date/Time: Wednesday, June 14, 2017 22:32 - CONCLUSION: 1. Increasing basilar lung consolidation since chest CT from June 04. 2. Mild ileus. No bowel obstruction, free air or free fluid. 3. Left hip replacement. Advanced osteoarthritis right hip. NG in stomach. Rectal tube present. Humphrey Weston MD Head CT 06/04/17 0000 Signed Impressions: Service Date/Time: Sunday, June 04, 2017 18:46 - CONCLUSION: 1. No significant change compared to 06/03/17. 2. No acute infarct, acute hemorrhage , mass effect or extra-axial fluid collection. 3. Scattered old lacunar infarcts within the bilateral basal ganglia. 4. Mild periventricular and subcortical white matter small vessel ischemic changes bilaterally. 5. Old right posterior parietal infarct. 6. Chronic opacification of right mastoid air cells. Mckay Stone MD Chest CT 06/04/17 0000 Signed Impressions: Service Date/Time: Sunday, June 04, 2017 18:49 - CONCLUSION: 1. Right mid lung field and posterior bibasilar patchiness consistent with probable areas of pneumonia and/or atelectasis. Clinical correlation is recommended. 2. Tiny bilateral pleural effusions. 3. Cardiomegaly and coronary artery calcifications. 4. Minimal scattered emphysematous changes bilaterally. Mckay Stone MD Objective Remarks GENERAL: Patient is 61 yo on ventilator via trach. SKIN: Warm and dry. HEAD: Normocephalic. EYES: No scleral icterus. No injection or drainage. NECK: trachea midline. No JVD. + Trach CARDIOVASCULAR: Regular rate and rhythm. RESPIRATORY: equal chest rise. 40% fio2. GASTROINTESTINAL: Abdomen soft, non-tender, minimally distended, bowel sounds present. MUSCULOSKELETAL: No cyanosis, or edema. Neuro: Off sedation, follows simple commands intermittently. A/P Assessment and Plan Assessment: 61yM with history of schizoaffective d/o and bipolar d/o who presented with acute hypoxic respiratory failure and now fungemia without overt source. Not improving on pathway. No meaningful improvements over last 2 weeks. s/p trach 06/15 and PEG 06/17. remains off pathway. needs long-term acute care level of rehabilitation. tube feed intolerance persists. has been without nutrition since 06/24. will give 24h of reglan and then re-attempt. if no success after 7 days, may need to consider iv source of nutrition. Plan: Neuro: Acute Metabolic Encephalopathy Agitated Delirium - improving. Schizoaffective disorder/bipolar disorder History of alcohol abuse History of CVA Monitor neuro status MRI brain 06/22: No acute ischemic events, no hemorrhage On Lactulose level 30ml TID, Ammonia level slightly elevated 42. EEG showed mod. encephalopathy Neuro is following. Dr. Rosibel Cheatham 10mg IM q12h prn for agitation PO meds on hold. CV: Uncontrolled hypertension - resolved. hyperlipidemia Monitor HR and BP keep MAP>65mmHg Hold antihypertensive meds ( Norvasc 5mg daily, clonidine 0.3mg po q8h, Lopressor 50mg Q12) 2-D echo with normal LV/RV function Pulmo: Acute respiratory failure requiring mechanical ventilation - persistent. COPD exacerbation Resolving community acquired pneumonia Intubated and placed on mechanical ventilation on 06/04. Continue with vent support keep sat >92%. Vent bundle, bronchodilators, on prednisone taper. On PRVC Decrease FIO2 as cordell. CTA chest negative for PE. trach 06/[address] Sapp/Alexander continue daily SBTs. t-piece trials if tolerated. GI/liver: GERD Acute protein calorie malnutrition- severe 06/23 KUB abdomen: Mild gaseous distention of bowel Ct abd/pelvis 06/23: Pneumatosis involving cecum and transverse colon concerning for ischemia. C. Diff negative hold bowel regimen. Surgery following patient for ischemic colitis- no surgical intervention recommended at this time and they have signed off. hold tube feeds, keep reglan iv. restart tube feeds 06/29 after 24h of reglan. having regular bowel movements. passing flatus. Consulted GI and view of ileus for evaluation of ileus and ischemic colitis. Possible colonoscopy in next few days if not improving. Renal/: ROSENDO/ CKD - resolved. Rhabdomyolysis - resolved. Acute intravascular volume overload- resolved. Metabolic alkalosis- resolving. Monitor renal function, electrolytes replacement per protocol. saline lock ivf. lasix 20mg iv x 1 again today. ID: Fungemia- resolved. Community Acquired Pneumonia- resolved. Ischemic colitis Sepsis [facility] Associated pneumonia with pseudomonas/e.coli completed full 14 day course of micagunfin for fungemia. Continue Zosyn. CT abdomen pelvis on 06/23 shows pneumatosis involving cecum and transverse colon consistent with ischemic colitis. Patient evaluated by general surgery Dr. Monroe who at this time recommends continuing IV fluids and antibiotics and he will be available for surgery if patient develops evidence of peritonitis or worsens clinically. ID is following Sputum cx: E.coli on 06/04, sputum 06/10: normal resp tamara BC 06/14, 06/19 : NGTD, Sputum cx 06/21: E.coli, Pseudomonas Endocrine: Hyperglycemia of critical illness SSI medium scale, q4h Heme: Anemia secondary to chronic disease Monitor CBC. Prophylaxis: Pepcid/SCDs. SQ Lovenox Lines: PIV Nemani,Dejuan K. MD Jun 29, 2017 15:35
[2017-06-29] MEDS: HYDROmorphone HCL PF 2 MG/ML VIAL IV PRN (15:58)
[2017-06-29] MEDS: LORazepam 2 MG/ML VIAL IV PRN (16:55)
[2017-06-30] VITALS (23 sets, daily range): BP systolic 147–166; BP diastolic 76–87; PULSE 48–68; RESP 17–41; TEMP 98.1–99.8; O2SAT 92–100
[2017-06-30] MEDS: DEXT 5%-NACL 0.9% 1000 ML INJ 1,000 ML IV SCH ×2 (01:31→20:14)
[2017-06-30] MEDS: PIPERACIL-TAZO 4.5 GM PREMIX 100 ML IV SCH ×4 (01:31→20:50)
[2017-06-30] MEDS: INSULIN NovoLIN REGULAR SUPPLEMENTAL SCALE SQ SCH ×6 (03:30→21:58)
[2017-06-30] MEDS: CHLORHEXIDINE GLUCONATE 2 % 1 PACK (2 CLOTHS) TOP SCH (04:00)
[2017-06-30] MEDS: DEXMEDETOMIDINE INJ 1,000 MCG in SODIUM CHLOR 0.9% 250 ML INJ 240 ML IV PRN ×3 (05:06→20:13)
[2017-06-30] MEDS: METOCLOPRAMIDE HCL 10 MG/2 ML VIAL IV PUSH SCH ×3 (05:07→21:58)
[2017-06-30 05:17] LABS: HEMOGLOBIN 10.1 GM/DL (13.0-17.0); MEAN CELL VOLUME 87.4 FL (80.0-100.0); MEAN CORPUSCULAR HEMOGLOBIN 29.4 PG (27.0-34.0); MEAN CORPUSCULAR HGB CONC 33.7 % (32.0-36.0); MEAN PLATELET VOLUME 7.3 FL (7.0-11.0); PLATELET COUNT 298 TH/MM3 (150-450); RED BLOOD COUNT 3.44 MIL/MM3 (4.50-5.90); RED CELL DISTRIBUTION WIDTH 14.6 % (11.6-17.2); WHITE BLOOD COUNT 8.5 TH/MM3 (4.0-11.0)
[2017-06-30] MEDS: NUTRISOURCE FIBER POWDER 1 PACK G-TUBE SCH ×2 (09:00→19:53)
[2017-06-30] MEDS: guanFACINE HCL 1 MG TAB PO SCH ×2 (09:00→19:53)
[2017-06-30] MEDS: FAMOTIDINE 20 MG/2 ML VIAL IV PUSH SCH ×2 (09:30→21:58)
[2017-06-30] MEDS: SENNOSIDES SYRUP 8.8 MG/5 ML CUP PO SCH (10:45)
[2017-06-30] MEDS: SODIUM CHLORIDE 0.9% FLUSH 10 ML FLUSH IV FLUSH SCH ×2 (10:46→20:50)
[2017-06-30] MEDS: CHLORHEXIDINE 0.12% (ORAL KIT) 15 ML CUP MT SCH ×2 (10:46→19:53)
--- NOTE | 2017-06-30 10:55 | HHI.CCPN ---
Subjective Remarks/Hospital Course 06/04: Mr. Reilly is a 61-year-old male with a history of COPD, hypertension, hyperlipidemia, CVA, schizoaffective disorder, bipolar disorder, GERD, renal failure, and arthritis who presented to the emergency room on 06/03/2017 from a longterm facility for evaluation of altered mental status. Upon review of the medical records from the longterm facility, it is noted he had a right lower lobe pneumonia diagnosed mid May. Head CT showed no acute infarct, acute hemorrhage, mass effect, or extra-axial fluid collection but scattered old lacunar infarcts within the bilateral basal ganglia. Mild periventricular and subcortical white matter small vessel ischemic changes bilaterally. Chest x-ray shows scattered bibasilar patchiness consistent with possible pneumonia. Per documentation : While in the ER, patient was in moderate respiratory distress with tachypnea and utilization of accessory abdominal muscles to breathe. His lung sounds are bilaterally congested and he is confused and a poor historian. His speech is slightly slurred but this is not a new finding. He was noted to be on 5 L nasal cannula with oxygen saturation of 94% in the emergency room. Patient was admitted to the ICU by the hospitalist service. He was initiated on heparin drip for suspicion of PE. He was also noted to have an elevated CPK and creatinine. His blood pressures were running high overnight. This afternoon patient developed worsening agitation and disorientation and confusion. His heparin was stopped earlier by Dr. Garcia due to low suspicion for PE. Patient developed worsening respiration status with respirations in the 30s and O2 sats in the mid 80s. Critical care medicine was consulted. Patient was emergently intubated by Dr. Elvira Gutierrez and I subsequently took over patient care. When I evaluated the patient he had been sedated for the intubation and is being placed on mechanical ventilation. History was obtained by discussion with Dr. Garcia, Dr. Gutierrez and ICU nursing staff as well as documentation in the chart. 06/05: Remains sedated, orally intubated on mechanical ventilation. 06/06: Sedated, orally intubated on mechanical ventilation. Failed C Pap trial today. Got extremely anxious on lightening sedation. 06/07 No events overnight. Sedated and intubated. Afebrile. 06/08 No events overnight. Sedated with Diprivan, Fentanyl and intubated. 06/09 Patient remains sedated and intubated. Afebrile.Did not tolerate CPAP trials yesterday. 06/10 Patient is sedated with Fentanyl and Diprivan. Afebrile. Did not tolerate CPAP yesterday as he became restless, agitated and tachycardic. 06/11 Patient remains sedated and intubated. Spiked fever with Tmax 101.1 06/12 No events overnight. Sedated and intubated. Afebrile. 06/13 Patient remains intubated and sedated with Diprivan, fentanyl in addition he is on Precedex drip. T:100.0 06/14 Patient remains sedated and intubated. Afebrile. Did not tolerate CPAP trials yesterday as he became tahypenic, tachycardic and restless. 06/15: agitation persists. respiratory failure persists. severely volume overloaded. has been intubated for almost 2 weeks. may require trach. CT abd/ pelvis without overt acute disease. no other source for fungemia. 06/16: s/p trach yesterday. no significant changes. 06/17: plan for PEG today. agitation persists with significant delirium. no other significant changes. 06/18: s/p PEG placement. weaning off sedation. still failing cpap trials. 06/19: cannot wean off precedex: agitated delirium persists. also still failing cpap trials. 06/20 No events overnight. On Precedex drip for agitation. T: 100.1 last night. 06/21 No events overnight. Remains on Precedex drip. Afebrile. 06/22 Patient is sedated with Fentanyl and Precedex. Afebrile. For MRI brain today. 06/23 Patient became hypotensive overnight and had episode of desaturation with says in mid 80's. Given 500ml 5% Albumin now off sedation ( Fentanyl and Precedex held). BP is better. In addition he was given Dulcolax suppos. and Mg citrate now having BM's. KUB this morning showed diffuse mild gaseous distention of bowel. FIO2 requirements is better now on 50% FIO2 with PEEP: 10 from FIO2 75 % overnight. CXR unchanged ( Consolidation LLL and Atelectasis right lung base) . T:99.9 06/24: Remains on mechanical ventilation via tracheostomy. CT abdomen pelvis done on 06/23 revealed pneumatosis involving cecum and transverse colon suggesting ischemic colitis. Gen. surgery consulted and patient evaluated by Dr. Monroe today who recommends medical management at this time with IV fluids and continuation of antibiotics. Patient not tolerating tube feeds and has abdominal distention. Maintaining blood pressure currently. 06/25: Remains on mechanical ventilation via tracheostomy. Does not appear to be in any acute distress. Still nothing by mouth. Being followed by general surgery for pneumatosis involving cecum and transverse colon. 06/26: Remains on mechanical ventilation via tracheostomy. Awake. Denies abdominal pain this morning. Has bowel sounds. Abdominal less distended. 06/27: no improvements. afebrile. restarting tube feeds slowly. 06/28: tube feeds held overnight for high residuals. reglan iv started. tolerated t-piece yesterday for short period. 06/29: In bed, awake and alert. On mechanical ventilation via tracheostomy. Not tolerating tube feeds with high residuals from PEG tube on suction. 06/30: Awake and alert. Denies any abdominal pain. Bilious emesis overnight with about 2200 cc suctioned out via PEG tube in last 24 hours. Weaning colonoscopy by GI Objective Vital Signs Date Time Temp Pulse Resp B/P (MAP) Pulse Ox O2 Delivery O2 Flow Rate FiO2 06/30/17 06:00 61 06/30/17 05:51 96 40 06/30/17 04:00 99.8 31 147/80 (102) 06/29/17 21:00 Ventilator Intake and Output 06/30/17 06/30/17 07/01/17 08:00 16:00 00:00 Intake Total 1671 ml Output Total 1150 ml Balance 521 ml Result Diagram: 06/30/17 0450 06/27/17 0725 Imaging Last 48 hours Impressions Abdomen X-Ray 06/24/17 0600 Signed Impressions: Service Date/Time: Saturday, June 24, 2017 03:14 - CONCLUSION: Dilated transverse colon and no definite pneumatosis intestinalis or technique, however the patient's prior CT examination was suggestive of pneumatosis. Domingo Pollack MD Chest X-Ray 06/24/17 0000 Signed Impressions: Service Date/Time: Saturday, June 24, 2017 03:08 - CONCLUSION: Bibasilar atelectasis and/or infiltrate is seen. Domingo Pollack MD Chest X-Ray 06/23/17 0000 Signed Impressions: Service Date/Time: Friday, June 23, 2017 03:45 - CONCLUSION: No significant interval change Arvind Hernandez MD CT Angiography 06/23/17 0000 Signed Impressions: Service Date/Time: Friday, June 23, 2017 20:34 - CONCLUSION: 1. No evidence of pulmonary embolus. 2. Increased patchy bilateral pulmonary consolidation with mild thin-walled cavitation of focal consolidation in the right upper lobe. This finding could be related consolidation of an area of long with emphysema involvement. 3. Mild to moderate upper lobe pulmonary parenchymal emphysema is seen. Rosas Rowell MD Abdomen/Pelvis CT 06/23/17 0000 Signed Impressions: Service Date/Time: Friday, June 23, 2017 20:34 - CONCLUSION: 1. Bowel wall pneumatosis involving the cecum and proximal transverse colon. Findings are suspicious for ischemic colitis. Surrounding inflammatory change in the intra-abdominal fat. No portal venous gas or free air identified. 2. Prominent bilateral lower lobe pulmonary consolidation. Rosas Rowell MD Abdomen X-Ray 06/23/17 0000 Signed Impressions: Service Date/Time: Friday, June 23, 2017 03:51 - CONCLUSION: Diffuse mild gaseous distention of bowel Arvind Hernandez MD Last Impressions Chest X-Ray 06/23/17 0000 Signed Impressions: Service Date/Time: Friday, June 23, 2017 03:45 - CONCLUSION: No significant interval change Arvind Hernandez MD Abdomen X-Ray 06/23/17 0000 Signed Impressions: Service Date/Time: Friday, June 23, 2017 03:51 - CONCLUSION: Diffuse mild gaseous distention of bowel Arvind Hernandez MD Brain MRI 06/22/17 0000 Signed Impressions: Service Date/Time: Thursday, June 22, 2017 12:10 - CONCLUSION: All ischemic changes, negative for acute ischemic event. Negative for parenchymal hemorrhage. Usman Pimentel MD FACR Abdomen/Pelvis CT 06/14/17 0000 Signed Impressions: Service Date/Time: Wednesday, June 14, 2017 22:32 - CONCLUSION: 1. Increasing basilar lung consolidation since chest CT from June 04. 2. Mild ileus. No bowel obstruction, free air or free fluid. 3. Left hip replacement. Advanced osteoarthritis right hip. NG in stomach. Rectal tube present. Humphrey Weston MD Head CT 06/04/17 0000 Signed Impressions: Service Date/Time: Sunday, June 04, 2017 18:46 - CONCLUSION: 1. No significant change compared to 06/03/17. 2. No acute infarct, acute hemorrhage , mass effect or extra-axial fluid collection. 3. Scattered old lacunar infarcts within the bilateral basal ganglia. 4. Mild periventricular and subcortical white matter small vessel ischemic changes bilaterally. 5. Old right posterior parietal infarct. 6. Chronic opacification of right mastoid air cells. Mckay Stone MD Chest CT 06/04/17 0000 Signed Impressions: Service Date/Time: Sunday, June 04, 2017 18:49 - CONCLUSION: 1. Right mid lung field and posterior bibasilar patchiness consistent with probable areas of pneumonia and/or atelectasis. Clinical correlation is recommended. 2. Tiny bilateral pleural effusions. 3. Cardiomegaly and coronary artery calcifications. 4. Minimal scattered emphysematous changes bilaterally. Mckay Stone MD Objective Remarks GENERAL: Patient is 61 yo on ventilator via trach. SKIN: Warm and dry. HEAD: Normocephalic. EYES: No scleral icterus. No injection or drainage. NECK: trachea midline. No JVD. + Trach CARDIOVASCULAR: Regular rate and rhythm. RESPIRATORY: equal chest rise. 40% fio2. GASTROINTESTINAL: Abdomen soft, non-tender, minimally distended, bowel sounds present. MUSCULOSKELETAL: No cyanosis, or edema. Neuro: Off sedation, follows simple commands intermittently. A/P Assessment and Plan Assessment: 61yM with history of schizoaffective d/o and bipolar d/o who presented with acute hypoxic respiratory failure and now fungemia without overt source. Not improving on pathway. No meaningful improvements over last 2 weeks. s/p trach 06/15 and PEG 06/17. remains off pathway. needs long-term acute care level of rehabilitation. tube feed intolerance persists. has been without nutrition since 06/24. will give 24h of reglan and then re-attempt. if no success after 7 days, may need to consider iv source of nutrition. Plan: Neuro: Acute Metabolic Encephalopathy Agitated Delirium - improving. Schizoaffective disorder/bipolar disorder History of alcohol abuse History of CVA Monitor neuro status MRI brain 06/22: No acute ischemic events, no hemorrhage On Lactulose level 30ml TID, Ammonia level slightly elevated 42. EEG showed mod. encephalopathy Neuro is following. Dr. Rosibel Cheatham 10mg IM q12h prn for agitation PO meds on hold. CV: Uncontrolled hypertension - resolved. hyperlipidemia Monitor HR and BP keep MAP>65mmHg Hold antihypertensive meds ( Norvasc 5mg daily, clonidine 0.3mg po q8h, Lopressor 50mg Q12) 2-D echo with normal LV/RV function Pulmo: Acute respiratory failure requiring mechanical ventilation - persistent. COPD exacerbation Resolving community acquired pneumonia Intubated and placed on mechanical ventilation on 06/04. Continue with vent support keep sat >92%. Vent bundle, bronchodilators, on prednisone taper. On PRVC , T piece as tolerated CTA chest negative for PE. trach 06/[address] Sapp/Alexander continue daily SBTs. t-piece trials if tolerated. GI/liver: GERD Acute protein calorie malnutrition- severe 06/23 KUB abdomen: Mild gaseous distention of bowel Ct abd/pelvis 06/23: Pneumatosis involving cecum and transverse colon concerning for ischemia. C. Diff negative hold bowel regimen. Surgery following patient for ischemic colitis- no surgical intervention recommended at this time and they have signed off. I discussed case with Dr. Anival Madden covering for Dr. Monroe on 06/30 as patient continues to have ileus with bilious output from PEG tube and not tolerating tube feeds. hold tube feeds, keep reglan iv. restart tube feeds 06/29 after 24h of reglan. having regular bowel movements. passing flatus. Consulted GI and view of ileus for evaluation of ileus and ischemic colitis. They're planning colonoscopy for further evaluation. Start TPN on 06/30 as unable to tolerate PEG tube feeds. KUB done on 06/29 with dilated small and large bowel loops. Renal/: ROSENDO/ CKD - resolved. Rhabdomyolysis - resolved. Acute intravascular volume overload- resolved. Metabolic alkalosis- resolving. Monitor renal function, electrolytes replacement per protocol. saline lock ivf. lasix 20mg iv x 1 again today. ID: Fungemia- resolved. Community Acquired Pneumonia- resolved. Ischemic colitis Sepsis [facility] Associated pneumonia with pseudomonas/e.coli completed full 14 day course of micagunfin for fungemia. Continue Zosyn. CT abdomen pelvis on 06/23 shows pneumatosis involving cecum and transverse colon consistent with ischemic colitis. Patient evaluated by general surgery Dr. Monroe who at this time recommends continuing IV fluids and antibiotics and he will be available for surgery if patient develops evidence of peritonitis or worsens clinically. ID is following Sputum cx: E.coli on 06/04, sputum 06/10: normal resp tamara BC 06/14, 06/19 : NGTD, Sputum cx 06/21: E.coli, Pseudomonas Endocrine: Hyperglycemia of critical illness SSI medium scale, q4h Heme: Anemia secondary to chronic disease Monitor CBC. Prophylaxis: Pepcid/SCDs. SQ Lovenox Lines: Dejuan Grigsby MD Jun 30, 2017 10:55
[2017-06-30 11:19] LABS: ALBUMIN 1.8 GM/DL (3.4-5.0); AST (GOT) 7 U/L (15-37); BICARBONATE 22.7 MEQ/L (21.0-32.0); BLOOD UREA NITROGEN 4 MG/DL (7-18); CALCIUM 7.5 MG/DL (8.5-10.1); CHLORIDE 102 MEQ/L (98-107); CREATININE 0.49 MG/DL (0.60-1.30); GLOMERULAR FILTRATION RATE 174 ML/MIN (>89); GLUCOSE,RANDOM 138 MG/DL (74-106); MAGNESIUM 1.6 MG/DL (1.5-2.5); SODIUM (NA) 136 MEQ/L (136-145)
[2017-06-30 11:21] LABS: ALT (GPT) 14 U/L (12-78); PHOSPHORUS 1.9 MG/DL (2.5-4.9)
[2017-06-30 11:23] LABS: ALKALINE PHOSPHATASE 84 U/L (45-117); TOTAL BILIRUBIN ADULT 0.7 MG/DL (0.2-1.0); TOTAL PROTEIN 5.9 GM/DL (6.4-8.2)
--- NOTE | 2017-06-30 13:07 | HHI.IDPN ---
Subjective Subjective Remarks ID COVERAGE 61-year-old male with a history of COPD, hypertension, hyperlipidemia, CVA, schizoaffective disorder, bipolar disorder, GERD, renal failure, and arthritis presented [facility]. H/o right lower lobe pneumonia in mid May. Head CT w/o acute findings Chest x-ray shows consistent with possible pneumonia. Has been intubated. Has been on vent and now S/P trach 06/15 Also with PEG Notes reviewed D/W RN Temps ok A lot of output from PEG On the vent BP ok CT showed pneumotosis coli WBC normal Surgery has signed off Antibiotics Current Medications Zosyn Medications (Trade) Dose Ordered Sig/Solange Route Start Time Stop Time Status Last Admin (Narcan Inj) 0.4 mg UNSCH PRN IV PUSH 06/03/17 21:45 (Duoneb Neb) 1 ampule Q2HR NEB PRN NEB 06/03/17 22:45 06/28/17 04:23 (Lipitor) 40 mg HS PO 06/04/17 21:00 Future Hold 06/22/17 20:49 (Cogentin) 1 mg HS PO 06/04/17 21:00 Future Hold 06/22/17 20:49 (Aricept) 5 mg HS PO 06/04/17 21:00 Future Hold 06/22/17 21:18 (risperDAL) 1 mg HS PO 06/04/17 21:00 Future Hold 06/22/17 20:49 (Flomax) 0.4 mg HS PO 06/04/17 21:00 Future Hold 06/22/17 20:49 (Effexor Xr) 150 mg DAILY PO 06/04/17 09:00 Future Hold 06/23/17 09:59 Miscellaneous Information 1 Q361D XX 06/04/17 03:45 (Chlorhexidine 2% Cloth) Taper DAILY@04 TOP 06/04/17 04:00 05/31/18 03:59 06/28/17 03:56 (Chlorhexidine 2% Cloth) 3 pack UNSCH PRN TOP 06/04/17 03:45 (Norvasc) 5 mg DAILY PO 06/04/17 12:00 Future Hold 06/22/17 08:21 (Apresoline Inj) 10 mg Q4H PRN IV PUSH 06/04/17 13:00 06/27/17 21:52 (NS Flush) 2 ml UNSCH PRN IV FLUSH 06/04/17 16:45 06/27/17 21:53 (NS Flush) 2 ml BID IV FLUSH 06/04/17 21:00 06/30/17 10:46 (Peridex 0.12% Liq) 15 ml BID@08,20 MT 06/04/17 20:00 06/30/17 10:46 (Trandate Inj) 20 mg Q4H PRN IV PUSH 06/04/17 17:00 06/10/17 15:35 (Lovenox Inj) 40 mg Q24H SQ 06/05/17 17:00 Future Hold 06/16/17 15:33 Dexmedetomidine HCl 1000 mcg/ Sodium Chloride 250 ml @ 4.95 mls/hr TITRATE PRN IV 06/10/17 09:30 06/30/17 10:44 (Tylenol) 650 mg Q4H PRN PO 06/10/17 12:15 Future Hold 06/23/17 02:33 (Pepcid) 20 mg Q12HR PO 06/10/17 21:00 Future Hold 06/23/17 09:58 (Mycostatin Powder) 1 applic Q12HR PRN TOPICAL 06/14/17 11:00 (Mag-Ox) 800 mg UNSCH PRN PO 06/15/17 07:00 Magnesium Sulfate 4 gm/Sodium Chloride 100 ml @ 50 mls/hr UNSCH PRN IV 06/15/17 07:00 Magnesium Sulfate 2 gm/Sodium Chloride 100 ml @ 50 mls/hr UNSCH PRN IV 06/15/17 07:00 Potassium Chloride 100 ml @ 50 mls/hr Q2H PRN IV 06/15/17 07:00 06/17/17 18:35 Potassium Chloride 100 ml @ 50 mls/hr Q2H PRN IV 06/15/17 07:00 06/16/17 10:30 Potassium Chloride 100 ml @ 50 mls/hr Q2H PRN IV 06/15/17 07:00 Potassium Chloride 100 ml @ 25 mls/hr UNSCH PRN IV 06/15/17 07:00 (K-Phos) 2,000 mg Q4H PRN PO 06/15/17 07:00 (K-Phos) 2,000 mg UNSCH PRN PO/TUBE 06/15/17 07:00 Potassium Phosphate 30 mmol/ Sodium Chloride 260 ml @ 42 mls/hr UNSCH PRN IV 06/15/17 07:00 Sodium Phosphate 30 mmol/Sodium Chloride 250 ml @ 42 mls/hr UNSCH PRN IV 06/15/17 07:00 (Geodon Inj) 10 mg Q12H PRN IM 06/15/17 07:15 06/19/17 10:24 (Nutrisource Fiber Powder) 2 pack BID G-TUBE 06/15/17 09:00 06/28/17 20:48 (Tenex) 2 mg Q12HR PO 06/19/17 14:00 Future hold 06/30/17 09:00 (Senna Liq) 8.8 mg DAILY PO 06/23/17 09:00 06/30/17 10:45 (D50w (Vial) Inj) 50 ml UNSCH PRN IV PUSH 06/23/17 07:30 (Glucagon Inj) 1 mg UNSCH PRN OTHER 06/23/17 07:30 (NovoLIN R SUPPLEMENTAL SCALE) 1 Q4H SQ 06/23/17 07:30 06/23/17 15:30 (Zofran Inj) 4 mg Q8HR PRN IV PUSH 06/23/17 16:00 06/28/17 18:32 (Pepcid Inj) 20 mg Q12H IV PUSH 06/23/17 23:00 06/30/17 09:30 Piperacillin Sod/ Tazobactam Sod 100 ml @ 200 mls/hr Q6H IV 06/24/17 14:00 06/30/17 09:30 (Dilaudid Pf Inj) 0.5 mg Q4H PRN IV 06/25/17 22:15 06/29/17 15:58 (Reglan Inj) 10 mg Q8HR IV PUSH 06/27/17 22:00 06/30/17 05:07 (Haldol Inj) 5 mg Q4H PRN IV PUSH 06/28/17 08:45 Dextrose/Sodium Chloride 1,000 ml @ 60 mls/hr [id number] IV 06/29/17 07:30 06/30/17 01:31 (Ativan Inj) 2 mg Q6H PRN IV 06/29/17 16:45 06/29/17 16:55 Multivitamins 10 ml/Folic Acid 1 mg/Amino Acids/ Electrolytes/ Dextrose 2,010.2 ml @ 83 mls/hr Q24H IV 06/30/17 20:00 Fat Emulsion Intravenous 250 ml @ 10 mls/hr Q24H IV 06/30/17 20:00 Lines PIV Past Medical History COPD Hypertension Hyperlipidemia CVA Schizoaffective disorder Bipolar disorder GERD Acute renal failure Arthritis Alcohol withdrawal seizures Past Surgical History Left partial pneumonectomy Left hip surgery Allergies: Coded Allergies: hydrochlorothiazide (Unverified Allergy, Intermediate, EFFECTS HIS SODIUM LEVEL, 02/12/17) PT STATES HE IS NOT ALLERGIC codeine (Unverified Adverse Reaction, Severe, 02/12/17) PT STATES HE IS NOT ALLERGIC Objective . Vital Signs Date Time Temp Pulse Resp B/P (MAP) Pulse Ox O2 Delivery O2 Flow Rate FiO2 06/30/17 12:05 96 40 06/30/17 06:00 61 06/30/17 05:51 96 40 06/30/17 04:00 99.8 67 31 147/80 (102) 94 06/30/17 04:00 67 06/30/17 04:00 45 06/30/17 02:15 96 40 06/30/17 02:00 63 06/30/17 00:00 99.1 68 21 152/87 (108) 94 06/30/17 00:00 68 06/30/17 00:00 45 06/29/17 23:45 96 40 06/29/17 22:00 65 06/29/17 21:00 96 40 06/29/17 21:00 96 Ventilator 40 06/29/17 20:00 100.0 74 29 150/73 (98) 96 06/29/17 20:00 74 06/29/17 20:00 45 06/29/17 18:00 75 06/29/17 16:20 95 40 06/29/17 16:00 98.9 76 30 109/71 (84) 95 06/29/17 16:00 45 06/29/17 16:00 76 06/29/17 15:30 45 06/29/17 14:00 58 . Laboratory Tests Test 06/30/17 04:50 White Blood Count 8.5 TH/MM3 Red Blood Count 3.44 MIL/MM3 Hemoglobin 10.1 GM/DL Hematocrit 30.0 % Mean Corpuscular Volume 87.4 FL Mean Corpuscular Hemoglobin 29.4 PG Mean Corpuscular Hemoglobin Concent 33.7 % Red Cell Distribution Width 14.6 % Platelet Count 298 TH/MM3 Mean Platelet Volume 7.3 FL Laboratory Tests Test 06/30/17 10:10 Blood Urea Nitrogen 4 MG/DL Creatinine 0.49 MG/DL Random Glucose 138 MG/DL Total Protein 5.9 GM/DL Albumin 1.8 GM/DL Calcium Level 7.5 MG/DL Phosphorus Level 1.9 MG/DL Magnesium Level 1.6 MG/DL Alkaline Phosphatase 84 U/L Aspartate Amino Transf (AST/SGOT) 7 U/L Alanine Aminotransferase (ALT/SGPT) 14 U/L Total Bilirubin 0.7 MG/DL Sodium Level 136 MEQ/L Potassium Level 3.0 MEQ/L Chloride Level 102 MEQ/L Carbon Dioxide Level 22.7 MEQ/L Anion Gap 11 MEQ/L Estimat Glomerular Filtration Rate 174 ML/MIN Triglycerides Level 117 MG/DL Imaging Abdomen X-Ray 06/24/17 0600 Signed Impressions: Service Date/Time: Saturday, June 24, 2017 03:14 - CONCLUSION: Dilated transverse colon and no definite pneumatosis intestinalis or technique, however the patient's prior CT examination was suggestive of pneumatosis. Domingo Pollack MD Chest X-Ray 06/24/17 0000 Signed Impressions: Service Date/Time: Saturday, June 24, 2017 03:08 - CONCLUSION: Bibasilar atelectasis and/or infiltrate is seen. Domingo Pollack MD Chest X-Ray 06/23/17 0000 Signed Impressions: Service Date/Time: Friday, June 23, 2017 03:45 - CONCLUSION: No significant interval change Arvind Hernandez MD CT Angiography 06/23/17 0000 Signed Impressions: Service Date/Time: Friday, June 23, 2017 20:34 - CONCLUSION: 1. No evidence of pulmonary embolus. 2. Increased patchy bilateral pulmonary consolidation with mild thin-walled cavitation of focal consolidation in the right upper lobe. This finding could be related consolidation of an area of long with emphysema involvement. 3. Mild to moderate upper lobe pulmonary parenchymal emphysema is seen. Rosas Rowell MD Abdomen/Pelvis CT 06/23/17 0000 Signed Impressions: Service Date/Time: Friday, June 23, 2017 20:34 - CONCLUSION: 1. Bowel wall pneumatosis involving the cecum and proximal transverse colon. Findings are suspicious for ischemic colitis. Surrounding inflammatory change in the intra-abdominal fat. No portal venous gas or free air identified. 2. Prominent bilateral lower lobe pulmonary consolidation. Rosas Rowell MD Abdomen X-Ray 06/23/17 0000 Signed Impressions: Service Date/Time: Friday, June 23, 2017 03:51 - CONCLUSION: Diffuse mild gaseous distention of bowel Arvind Hernandez MD Chest X-Ray 06/23/17 0000 Signed Impressions: Service Date/Time: Friday, June 23, 2017 03:45 - CONCLUSION: No significant interval change Arvind Hernandez MD Abdomen X-Ray 06/23/17 0000 Signed Impressions: Service Date/Time: Friday, June 23, 2017 03:51 - CONCLUSION: Diffuse mild gaseous distention of bowel Arvind Hernandez MD Brain MRI 06/22/17 0000 Signed Impressions: Service Date/Time: Thursday, June 22, 2017 12:10 - CONCLUSION: All ischemic changes, negative for acute ischemic event. Negative for parenchymal hemorrhage. Usman Pimentel MD FACR Abdomen/Pelvis CT 06/14/17 0000 Signed Impressions: Service Date/Time: Wednesday, June 14, 2017 22:32 - CONCLUSION: 1. Increasing basilar lung consolidation since chest CT from June 04. 2. Mild ileus. No bowel obstruction, free air or free fluid. 3. Left hip replacement. Advanced osteoarthritis right hip. NG in stomach. Rectal tube present. Humphrey Weston MD Head CT 06/04/17 0000 Signed Impressions: Service Date/Time: Sunday, June 04, 2017 18:46 - CONCLUSION: 1. No significant change compared to 06/03/17. 2. No acute infarct, acute hemorrhage , mass effect or extra-axial fluid collection. 3. Scattered old lacunar infarcts within the bilateral basal ganglia. 4. Mild periventricular and subcortical white matter small vessel ischemic changes bilaterally. 5. Old right posterior parietal infarct. 6. Chronic opacification of right mastoid air cells. Mckay Stone MD Chest CT 06/04/17 0000 Signed Impressions: Service Date/Time: Sunday, June 04, 2017 18:49 - CONCLUSION: 1. Right mid lung field and posterior bibasilar patchiness consistent with probable areas of pneumonia and/or atelectasis. Clinical correlation is recommended. 2. Tiny bilateral pleural effusions. 3. Cardiomegaly and coronary artery calcifications. 4. Minimal scattered emphysematous changes bilaterally. Mckay Stone MD Physical Exam GENERAL: Opens eyes, focusing, on the vent, NAD. SKIN: Cool, dry. No generalized rash EYES: Pupils equal and round and reactive. Extraocular motions intact. No scleral icterus. No injection or drainage. NECK: trach in place , site ok CARDIOVASCULAR: Regular rate and rhythm without murmurs, gallops, or rubs. No JVD. Peripheral pulses symmetric. RESPIRATORY/CHEST: Symmetric, unlabored respirations. Clear to auscultation. Breath sounds equal bilaterally. No wheezes, rales, or rhonchi. GASTROINTESTINAL: Abdomen, still distended min tenderness, not guarding, BS hypoactive. GENITOURINARY: Without palpable bladder distension. condom catheter in place with clear yellow MUSCULOSKELETAL: Extremities without clubbing, cyanosis, or edema. No joint tenderness or effusion noted. No calf tenderness. No mottling or clubbing. NEUROLOGICAL: moves all 4 extremities, awake, alert, follows commands PSYCHIATRIC: cooperative LINE: No evidence of infection Assessment & Plan Remarks IMPRESSION Mental status change, PNA, E.coli, S/P Rx Acute VDRF, failure to wean Multiple med problems Leukocytosis, better Abdominal distention, diarrhea - C.diff negative - likely ischemic colitis C glabrata sepsis, S/P Rx New HCAP PNA (PSAE and E coli in sputum) PLAN Continue Zosyn to cover both PSAE and intraabd aerobic/anaerobic tamara Follow temps Monitor progress Weaning per CCM Karey Ayala MD Jun 30, 2017 13:07
--- NOTE | 2017-06-30 15:22 | HHI.PR ---
Subjective Remarks 61 YOWM with VDRF,Trach,COPD Tolerates CPAP On Precedex No Fever Awake follows commands Getting PICC line Objective Vital Signs Vital Signs Date Time Temp Pulse Resp B/P (MAP) Pulse Ox O2 Delivery O2 Flow Rate FiO2 06/30/17 12:05 96 40 06/30/17 06:00 61 06/30/17 05:51 96 40 06/30/17 04:00 99.8 67 31 147/80 (102) 94 06/30/17 04:00 67 06/30/17 04:00 45 06/30/17 02:15 96 40 06/30/17 02:00 63 06/30/17 00:00 99.1 68 21 152/87 (108) 94 06/30/17 00:00 68 06/30/17 00:00 45 06/29/17 23:45 96 40 06/29/17 22:00 65 06/29/17 21:00 96 40 06/29/17 21:00 96 Ventilator 40 06/29/17 20:00 100.0 74 29 150/73 (98) 96 06/29/17 20:00 74 06/29/17 20:00 45 06/29/17 18:00 75 06/29/17 16:20 95 40 06/29/17 16:00 98.9 76 30 109/71 (84) 95 06/29/17 16:00 45 06/29/17 16:00 76 06/29/17 15:30 45 I/O 06/29/17 06/29/17 06/29/17 06/30/17 06/30/17 06/30/17 07:00 15:00 23:00 07:00 15:00 23:00 Intake Total 538 ml 1305 ml 1671 ml Output Total 1600 ml 1175 ml 1150 ml Balance -1062 ml 130 ml 521 ml IV Total 388 ml 1305 ml 1671 ml Tube Irrigant 150 ml Output Urine Total 100 ml 550 ml 700 ml Gastric Drainage Total 1500 ml 625 ml 450 ml # Voids 1 # Bowel Movements 1 1 1 Result Diagram: 06/30/17 0450 06/30/17 1010 Objective Remarks GENERAL: MBMN WM, on Vent, sedated SKIN: Warm and dry. HEAD: Normocephalic. EYES: No scleral icterus. No injection or drainage. NECK: Supple, trachea midline. No JVD or lymphadenopathy. CARDIOVASCULAR: Regular rate and rhythm without murmurs, gallops, or rubs. RESPIRATORY: Breath sounds equal bilaterally. No accessory muscle use. GASTROINTESTINAL: Abdomen soft, non-tender, nondistended. MUSCULOSKELETAL: No cyanosis, or edema. BACK: Nontender without obvious deformity. No CVA tenderness. A/P Assessment and Plan VDRF S/P Trach COPD COPD Schzoaffective disorder Bipolar disorder PLAN: Vent support Cont Abx Sedation with Precedex Feeding tube to suction Syed Cuellar MD Jun 30, 2017 15:21
[2017-06-30 15:27] LABS: INTERNATIONAL NORMALIZED RATIO 1.3 RATIO; PROTHROMBIN TIME - PATIENT 12.9 SEC (9.8-11.6)
[2017-06-30] MEDS ORDERED: SODIUM CHLORIDE 0.9% FLUSH 10 ML FLUSH IV FLUSH PRN (16:00)
--- NOTE | 2017-06-30 16:23 | HHI.GIFU ---
Subjective Remarks Mechanical ventilation, trach Able to mildly communicate Positive for epigastric and right upper quadrant and right lower quadrant abdominal pain Noted bowel reflux this past a.m. per staff, none today (Annmarie Salter) Objective Vitals I&O Vital Signs Date Time Temp Pulse Resp B/P (MAP) Pulse Ox O2 Delivery O2 Flow Rate FiO2 06/30/17 16:00 45 06/30/17 12:05 96 40 06/30/17 12:00 45 06/30/17 08:00 45 06/30/17 06:00 61 06/30/17 05:51 96 40 06/30/17 04:00 99.8 67 31 147/80 (102) 94 06/30/17 04:00 67 06/30/17 04:00 45 06/30/17 02:15 96 40 06/30/17 02:00 63 06/30/17 00:00 99.1 68 21 152/87 (108) 94 06/30/17 00:00 68 06/30/17 00:00 45 06/29/17 23:45 96 40 06/29/17 22:00 65 06/29/17 21:00 96 40 06/29/17 21:00 96 Ventilator 40 06/29/17 20:00 100.0 74 29 150/73 (98) 96 06/29/17 20:00 74 06/29/17 20:00 45 06/29/17 18:00 75 06/29/17 16:20 95 40 I/O 06/29/17 06/29/17 06/29/17 06/30/17 06/30/17 06/30/17 07:00 15:00 23:00 07:00 15:00 23:00 Intake Total 538 ml 1305 ml 1671 ml Output Total 1600 ml 1175 ml 1150 ml Balance -1062 ml 130 ml 521 ml IV Total 388 ml 1305 ml 1671 ml Tube Irrigant 150 ml Output Urine Total 100 ml 550 ml 700 ml Gastric Drainage Total 1500 ml 625 ml 450 ml # Voids 1 # Bowel Movements 1 1 1 Laboratory Laboratory Tests Test 06/30/17 04:50 06/30/17 10:10 06/30/17 14:10 White Blood Count 8.5 Red Blood Count 3.44 Hemoglobin 10.1 Hematocrit 30.0 Mean Corpuscular Volume 87.4 Mean Corpuscular Hemoglobin 29.4 Mean Corpuscular Hemoglobin Concent 33.7 Red Cell Distribution Width 14.6 Platelet Count 298 Mean Platelet Volume 7.3 Blood Urea Nitrogen 4 Creatinine 0.49 Random Glucose 138 Total Protein 5.9 Albumin 1.8 Calcium Level 7.5 Phosphorus Level 1.9 Magnesium Level 1.6 Alkaline Phosphatase 84 Aspartate Amino Transf (AST/SGOT) 7 Alanine Aminotransferase (ALT/SGPT) 14 Total Bilirubin 0.7 Sodium Level 136 Potassium Level 3.0 Chloride Level 102 Carbon Dioxide Level 22.7 Anion Gap 11 Estimat Glomerular Filtration Rate 174 Triglycerides Level 117 Prothrombin Time 12.9 Prothromb Time International Ratio 1.3 Date/Time Source Procedure Growth Status 06/19/17 01:35 Blood Peripheral Aerobic Blood Culture - Final NO GROWTH IN 5 DAYS Complete 06/19/17 01:35 Blood Peripheral Anaerobic Blood Culture - Final NO GROWTH IN 5 DAYS Complete 06/21/17 13:30 Sputum Expectorated Sputum Gram Stain - Final Complete 06/21/17 13:30 Sputum Culture - Final Escherichia Coli Pseudomonas Aeruginosa Complete 06/10/17 12:45 Urine Catheterized Urine Urine Culture - Final NO GROWTH IN 48 HOURS. Complete Imaging Last Impressions Abdomen X-Ray 06/29/17 0000 Signed Impressions: Service Date/Time: Thursday, June 29, 2017 10:21 - CONCLUSION: Persistent distended small and large bowel. Arvind Iyer MD Chest X-Ray 06/24/17 0000 Signed Impressions: Service Date/Time: Saturday, June 24, 2017 03:08 - CONCLUSION: Bibasilar atelectasis and/or infiltrate is seen. Domingo Pollack MD CT Angiography 06/23/17 0000 Signed Impressions: Service Date/Time: Friday, June 23, 2017 20:34 - CONCLUSION: 1. No evidence of pulmonary embolus. 2. Increased patchy bilateral pulmonary consolidation with mild thin-walled cavitation of focal consolidation in the right upper lobe. This finding could be related consolidation of an area of long with emphysema involvement. 3. Mild to moderate upper lobe pulmonary parenchymal emphysema is seen. Rosas Rowell MD Abdomen/Pelvis CT 06/23/17 0000 Signed Impressions: Service Date/Time: Friday, June 23, 2017 20:34 - CONCLUSION: 1. Bowel wall pneumatosis involving the cecum and proximal transverse colon. Findings are suspicious for ischemic colitis. Surrounding inflammatory change in the intra-abdominal fat. No portal venous gas or free air identified. 2. Prominent bilateral lower lobe pulmonary consolidation. Rosas Rowell MD Brain MRI 06/22/17 0000 Signed Impressions: Service Date/Time: Thursday, June 22, 2017 12:10 - CONCLUSION: All ischemic changes, negative for acute ischemic event. Negative for parenchymal hemorrhage. Usman Pimentel MD FACR Head CT 06/04/17 0000 Signed Impressions: Service Date/Time: Sunday, June 04, 2017 18:46 - CONCLUSION: 1. No significant change compared to 06/03/17. 2. No acute infarct, acute hemorrhage , mass effect or extra-axial fluid collection. 3. Scattered old lacunar infarcts within the bilateral basal ganglia. 4. Mild periventricular and subcortical white matter small vessel ischemic changes bilaterally. 5. Old right posterior parietal infarct. 6. Chronic opacification of right mastoid air cells. Mckay Stone MD Chest CT 06/04/17 0000 Signed Impressions: Service Date/Time: Sunday, June 04, 2017 18:49 - CONCLUSION: 1. Right mid lung field and posterior bibasilar patchiness consistent with probable areas of pneumonia and/or atelectasis. Clinical correlation is recommended. 2. Tiny bilateral pleural effusions. 3. Cardiomegaly and coronary artery calcifications. 4. Minimal scattered emphysematous changes bilaterally. Mckay Stone MD Physical Exam HEENT: normocephalic; atraumatic; no jaundice. trach to vent CHEST: coarse on vent via trach CARDIAC: irr HR, controlled ABDOMEN: Soft, nondistended, nontender; no hepatosplenomegaly; bowel sounds minimal if any, PEG tube site clean and dry EXTREMITIES: No clubbing, cyanosis, or edema. SKIN: Normal; no rash; no jaundice. 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 He was found to have Pneumonia and developed respiratory failure. Abdominal soft. He under went EGD/PEG tube with our services on 06/17/17. Patient developed acute elevation on WBC, CT abdomen pelvis done on 06/23 revealed pneumatosis involving cecum and transverse colon suggesting ischemic colitis. Gen. surgery consulted and patient evaluated by Dr. Monroe today who recommends medical management at this time with IV fluids and continuation of antibiotics. Patient has not been tolerating tube feeds and currently TF on hold PEG tube to suction, green gastric out put noted in canister. Currently pt on mechanical ventilation via tracheostomy. Awake. Denies abdominal pain , No rectal bleeding or hematemesis reported. Abd X-ray on 06/26/17 No visible change in dilated loop of transverse colon. - Possible ischemic colitis GERD uncontrolled, staff noted reflux of bile substance back into trach during early a.m. hours, none further today - Chronic respiratory failure- trach KUB still shows distended large and small bowel, Anemia stable at 10.1 PLAN: - NPO - Cont. PEG tube clamped for now - Held on order, eval ileus first, KUB in am. Possible EGD and colonoscopy Saturday if patient is stable from KUB /ileus standpoint/ - Supportive care - Patient seen and examined by Dr. Root and myself and this note is written on his behalf. (Annmarie Salter) Physician Comments Agree with the plan as above, will follow up with you. (Linette Root MD) Annmarie Salter Jun 30, 2017 16:23 Linette Root MD Jun 30, 2017 18:06
[2017-06-30] MEDS ORDERED: MAGNESIUM CITRATE SOLN 300 ML BTL PO ONE (16:30)
--- NOTE | 2017-06-30 17:09 | RADRPT ---
EXAM DATE/TIME: 06/30/2017 16:07 [facility] COMPARISON: CHEST SINGLE AP, June 24, 2017, 3:08. INDICATIONS : Evaluate PICC placement. MEDICAL HISTORY : Cardiovascular disease. Hypertension. Cirrhosis.Hep C, CVA. SURGICAL HISTORY : None. ENCOUNTER: Subsequent ACUITY: 3 weeks PAIN SCORE: Non-responsive. LOCATION: Bilateral chest FINDINGS: Tracheostomy tube is present in satisfactory position. Right subclavian PICC line is present with tip overlapping the expected region of the SVC. Slight bibasilar atelectasis and/or infiltrate is seen. There is also perivascular haziness may represent pulmonary edema. Focal consolidation is also seen i n the right hilar and infrahilar location present previously. CONCLUSION: Probable pulmonary edema with bilateral parenchymal infiltrates and new focal consolidation in the ri ght hilar and infrahilar location not present previously. Domingo Pollack MD on June 30, 2017 at 17:05 Board Certified Radiologist. This report was verified electronically.
[2017-06-30] MEDS ORDERED: FAT EMULSION 20% INJ 250 ML (@10 mls/hr) IV SCH (20:00)
[2017-06-30] MEDS ORDERED: CLINIMIX E 4.25/5 2000 mL- >42 mls/hr IV SCH ×3 (20:00)
[2017-07-01] VITALS (28 sets, daily range): BP systolic 81–225; BP diastolic 50–129; PULSE 46–159; RESP 23–80; TEMP 98.4–98.8; O2SAT 91–100
[2017-07-01 01:27] LABS: PHOSPHORUS 2.7 MG/DL (2.5-4.9)
[2017-07-01] MEDS: INSULIN NovoLIN REGULAR SUPPLEMENTAL SCALE SQ SCH ×6 (02:19→23:30)
[2017-07-01] MEDS: CHLORHEXIDINE GLUCONATE 2 % 1 PACK (2 CLOTHS) TOP SCH (02:19)
[2017-07-01] MEDS: PIPERACIL-TAZO 4.5 GM PREMIX 100 ML IV SCH ×4 (02:19→23:05)
[2017-07-01] MEDS: DEXMEDETOMIDINE INJ 1,000 MCG in SODIUM CHLOR 0.9% 250 ML INJ 240 ML IV PRN ×3 (02:20→20:00)
[2017-07-01] MEDS: METOCLOPRAMIDE HCL 10 MG/2 ML VIAL IV PUSH SCH ×3 (06:12→22:00)
[2017-07-01] MEDS: LORazepam 2 MG/ML VIAL IV PRN ×2 (07:15→08:00)
[2017-07-01] MEDS: MIDAZOLAM 100 MG/NS 100 ML DRIP Premix IV PRN ×2 (07:56→23:02)
[2017-07-01 08:44] LABS: AUTOMATED NEUTROPHIL # 7.9 TH/MM3 (1.8-7.7); BASOPHIL % 0.4 % (0.0-2.0); EOSINOPHIL # 0.2 TH/MM3 (0-0.4); HEMATOCRIT 26.5 % (39.0-51.0); HEMOGLOBIN 9.6 GM/DL (13.0-17.0); LYMPH % 5.9 % (9.0-44.0); LYMPHOCYTE # 0.5 TH/MM3 (1.0-4.8); MEAN CELL VOLUME 87.3 FL (80.0-100.0); MEAN CORPUSCULAR HEMOGLOBIN 31.5 PG (27.0-34.0); MEAN PLATELET VOLUME 6.8 FL (7.0-11.0); MONO % 5.5 % (0.0-8.0); MONOCYTE # 0.5 TH/MM3 (0-0.9); NEUT % 86.2 % (16.0-70.0); PLATELET COUNT 282 TH/MM3 (150-450); RED BLOOD COUNT 3.04 MIL/MM3 (4.50-5.90); RED CELL DISTRIBUTION WIDTH 14.6 % (11.6-17.2); WHITE BLOOD COUNT 9.1 TH/MM3 (4.0-11.0)
[2017-07-01 08:47] LABS: MEAN CORPUSCULAR HGB CONC 36.1 % (32.0-36.0)
[2017-07-01] MEDS: guanFACINE HCL 1 MG TAB PO SCH ×2 (09:00→21:00)
[2017-07-01] MEDS: SENNOSIDES SYRUP 8.8 MG/5 ML CUP PO SCH (09:00)
[2017-07-01] MEDS: NUTRISOURCE FIBER POWDER 1 PACK G-TUBE SCH ×2 (09:00→21:00)
[2017-07-01 09:06] LABS: ALBUMIN 1.7 GM/DL (3.4-5.0); BICARBONATE 21.1 MEQ/L (21.0-32.0); CALCIUM 7.4 MG/DL (8.5-10.1); CREATININE 0.54 MG/DL (0.60-1.30); TOTAL BILIRUBIN ADULT 0.5 MG/DL (0.2-1.0)
[2017-07-01] MEDS ORDERED: NOREPINEPHRINE 4 MG/D5W 250 ML IV PRN (09:15)
[2017-07-01 09:20] LABS: BANDS 28 % (0-6); LYMPHOCYTES 9 % (9-44); MONOCYTES 7 % (0-8); NEUTROPHIL # MANUAL DIFF 7.2 TH/MM3 (1.8-7.7); POLYS (SEG NEUTROPHILS) 51 % (16-70)
--- NOTE | 2017-07-01 09:23 | RADRPT ---
EXAM DATE/TIME: 07/01/2017 08:28 [facility] COMPARISON: CHEST SINGLE AP, June 30, 2017, 16:07. INDICATIONS : Respiratory distress. MEDICAL HISTORY : Cardiovascular disease. Hypertension. Cirrhosis.Hep C, CVA. SURGICAL HISTORY : None. ENCOUNTER: Subsequent ACUITY: 1 day PAIN SCORE: Non-responsive. LOCATION: Bilateral chest FINDINGS: There is a tracheostomy tube in place. The heart size is normal. There is increased density in the ba ses bilaterally and in the right infrahilar region. Significant effusions are not clearly seen. CONCLUSION: Bilateral areas of consolidation being worse on the right, these are mildly worse when compared to th e prior exam. Arvind Iyer MD on July 01, 2017 at 9:19 Board Certified Radiologist. This report was verified electronically.
--- NOTE | 2017-07-01 09:29 | RADRPT ---
EXAM DATE/TIME: 07/01/2017 08:39 [facility] COMPARISON: ABDOMEN KUB ONLY, June 29, 2017, 10:21. INDICATIONS : Ileus. MEDICAL HISTORY : Cardiovascular disease. Hypertension. Cirrhosis.Hep C, CVA. SURGICAL HISTORY : None. ENCOUNTER: Subsequent ACUITY: 1 day PAIN SCORE: Non-responsive. LOCATION: Bilateral Abdomen. FINDINGS: There is a G-tube in place. There is dilated bowel. The dilated bowel appears to be primarily small b owel. The colon is not clearly dilated. There is a left hip prosthesis. There is prominent degenerati ve change at the right hip. CONCLUSION: Dilated small bowel concerning for some degree of ileus or obstruction. Arvind Iyer MD on July 01, 2017 at 9:26 Board Certified Radiologist. This report was verified electronically.
[2017-07-01] MEDS: DEXT 5%-NACL 0.9% 1000 ML INJ 1,000 ML IV SCH (09:30)
[2017-07-01] MEDS: CHLORHEXIDINE 0.12% (ORAL KIT) 15 ML CUP MT SCH ×2 (09:41→20:00)
[2017-07-01] MEDS: SODIUM CHLORIDE 0.9% FLUSH 10 ML FLUSH IV FLUSH SCH ×3 (09:41→22:25)
--- NOTE | 2017-07-01 10:58 | HHI.IDPN ---
Subjective Subjective Remarks ID COVERAGE 61-year-old male with a history of COPD, hypertension, hyperlipidemia, CVA, schizoaffective disorder, bipolar disorder, GERD, renal failure, and arthritis presented to the emergency room [facility]03/2017 [facility]. H/o right lower lobe pneumonia in mid May. Head CT w/o acute findings Chest x-ray shows consistent with possible pneumonia. Has been intubated. Has been on vent and now S/P trach 06/15 Also with PEG Notes reviewed Temps ok A lot of output from PEG On the vent On pressors this morning CT showed pneumotosis coli WBC normal Surgery has signed off Antibiotics Current Medications Zosyn Medications (Trade) Dose Ordered Sig/Solange Route Start Time Stop Time Status Last Admin (Narcan Inj) 0.4 mg UNSCH PRN IV PUSH 06/03/17 21:45 (Duoneb Neb) 1 ampule Q2HR NEB PRN NEB 06/03/17 22:45 06/28/17 04:23 (Lipitor) 40 mg HS PO 06/04/17 21:00 Future Hold 06/22/17 20:49 (Cogentin) 1 mg HS PO 06/04/17 21:00 Future Hold 06/22/17 20:49 (Aricept) 5 mg HS PO 06/04/17 21:00 Future Hold 06/22/17 21:18 (risperDAL) 1 mg HS PO 06/04/17 21:00 Future Hold 06/22/17 20:49 (Flomax) 0.4 mg HS PO 06/04/17 21:00 Future Hold 06/22/17 20:49 (Effexor Xr) 150 mg DAILY PO 06/04/17 09:00 Future Hold 06/23/17 09:59 Miscellaneous Information 1 Q361D XX 06/04/17 03:45 (Chlorhexidine 2% Cloth) Taper DAILY@04 TOP 06/04/17 04:00 05/31/18 03:59 06/28/17 03:56 (Chlorhexidine 2% Cloth) 3 pack UNSCH PRN TOP 06/04/17 03:45 (Norvasc) 5 mg DAILY PO 06/04/17 12:00 Future Hold 06/22/17 08:21 (Apresoline Inj) 10 mg Q4H PRN IV PUSH 06/04/17 13:00 06/27/17 21:52 (NS Flush) 2 ml UNSCH PRN IV FLUSH 06/04/17 16:45 06/27/17 21:53 (NS Flush) 2 ml BID IV FLUSH 06/04/17 21:00 07/01/17 09:41 (Peridex 0.12% Liq) 15 ml BID@08,20 MT 06/04/17 20:00 07/01/17 09:41 (Trandate Inj) 20 mg Q4H PRN IV PUSH 06/04/17 17:00 06/10/17 15:35 (Lovenox Inj) 40 mg Q24H SQ 06/05/17 17:00 Future Hold 06/16/17 15:33 Dexmedetomidine HCl 1000 mcg/ Sodium Chloride 250 ml @ 4.95 mls/hr TITRATE PRN IV 06/10/17 09:30 07/01/17 02:20 (Tylenol) 650 mg Q4H PRN PO 06/10/17 12:15 Future Hold 06/23/17 02:33 (Pepcid) 20 mg Q12HR PO 06/10/17 21:00 Future Hold 06/23/17 09:58 (Mycostatin Powder) 1 applic Q12HR PRN TOPICAL 06/14/17 11:00 (Mag-Ox) 800 mg UNSCH PRN PO 06/15/17 07:00 Magnesium Sulfate 4 gm/Sodium Chloride 100 ml @ 50 mls/hr UNSCH PRN IV 06/15/17 07:00 Magnesium Sulfate 2 gm/Sodium Chloride 100 ml @ 50 mls/hr UNSCH PRN IV 06/15/17 07:00 06/30/17 14:02 Potassium Chloride 100 ml @ 50 mls/hr Q2H PRN IV 06/15/17 07:00 06/17/17 18:35 Potassium Chloride 100 ml @ 50 mls/hr Q2H PRN IV 06/15/17 07:00 06/16/17 10:30 Potassium Chloride 100 ml @ 50 mls/hr Q2H PRN IV 06/15/17 07:00 Potassium Chloride 100 ml @ 25 mls/hr UNSCH PRN IV 06/15/17 07:00 07/01/17 02:20 (K-Phos) 2,000 mg Q4H PRN PO 06/15/17 07:00 (K-Phos) 2,000 mg UNSCH PRN PO/TUBE 06/15/17 07:00 Potassium Phosphate 30 mmol/ Sodium Chloride 260 ml @ 42 mls/hr UNSCH PRN IV 06/15/17 07:00 06/30/17 14:02 Sodium Phosphate 30 mmol/Sodium Chloride 250 ml @ 42 mls/hr UNSCH PRN IV 06/15/17 07:00 (Geodon Inj) 10 mg Q12H PRN IM 06/15/17 07:15 06/19/17 10:24 (Nutrisource Fiber Powder) 2 pack BID G-TUBE 06/15/17 09:00 07/01/17 09:00 (Tenex) 2 mg Q12HR PO 06/19/17 14:00 Future hold 07/01/17 09:00 (Senna Liq) 8.8 mg DAILY PO 06/23/17 09:00 06/30/17 10:45 (D50w (Vial) Inj) 50 ml UNSCH PRN IV PUSH 06/23/17 07:30 (Glucagon Inj) 1 mg UNSCH PRN OTHER 06/23/17 07:30 (NovoLIN R SUPPLEMENTAL SCALE) 1 Q4H SQ 06/23/17 07:30 06/23/17 15:30 (Zofran Inj) 4 mg Q8HR PRN IV PUSH 06/23/17 16:00 06/28/17 18:32 (Pepcid Inj) 20 mg Q12H IV PUSH 06/23/17 23:00 06/30/17 21:58 Piperacillin Sod/ Tazobactam Sod 100 ml @ 200 mls/hr Q6H IV 06/24/17 14:00 07/01/17 09:40 (Dilaudid Pf Inj) 0.5 mg Q4H PRN IV 06/25/17 22:15 06/29/17 15:58 (Reglan Inj) 10 mg Q8HR IV PUSH 06/27/17 22:00 07/01/17 06:12 (Haldol Inj) 5 mg Q4H PRN IV PUSH 06/28/17 08:45 Dextrose/Sodium Chloride 1,000 ml @ 60 mls/hr [id number] IV 06/29/17 07:30 12/31/17 20:14 (Ativan Inj) 2 mg Q6H PRN IV 06/29/17 16:45 07/01/17 08:00 Multivitamins 10 ml/Folic Acid 1 mg/Amino Acids/ Electrolytes/ Dextrose 2,010.2 ml @ 83 mls/hr Q24H IV 06/30/17 20:00 06/30/17 19:52 Fat Emulsion Intravenous 250 ml @ 10 mls/hr Q24H IV 06/30/17 20:00 06/30/17 19:52 (NS Flush) See Protocol DAILY IV FLUSH 07/01/17 09:00 07/01/17 09:41 (NS Flush) See Protocol UNSCH PRN IV FLUSH 06/30/17 16:00 (Heparin Central Flush) See Protocol DAILY IV FLUSH 07/01/17 09:00 (Heparin Central Flush) See Protocol UNSCH PRN IV FLUSH 06/30/17 16:00 (NS Flush) UNSCH PRN IV FLUSH 06/30/17 16:00 Midazolam HCl 100 ml @ 2 mls/hr TITRATE PRN IV 07/01/17 08:00 07/01/17 07:56 Norepinephrine Bitartrate 250 ml @ 7.5 mls/hr TITRATE PRN IV 07/01/17 09:15 Lines PIV Past Medical History COPD Hypertension Hyperlipidemia CVA Schizoaffective disorder Bipolar disorder GERD Acute renal failure Arthritis Alcohol withdrawal seizures Past Surgical History Left partial pneumonectomy Left hip surgery Allergies: Coded Allergies: hydrochlorothiazide (Unverified Allergy, Intermediate, EFFECTS HIS SODIUM LEVEL, 02/12/17) PT STATES HE IS NOT ALLERGIC codeine (Unverified Adverse Reaction, Severe, 02/12/17) PT STATES HE IS NOT ALLERGIC Objective . Vital Signs Date Time Temp Pulse Resp B/P (MAP) Pulse Ox O2 Delivery O2 Flow Rate FiO2 07/01/17 09:50 98 60 07/01/17 06:00 60 07/01/17 04:19 98 40 07/01/17 04:00 45 07/01/17 04:00 60 07/01/17 04:00 98.8 46 25 151/86 (107) 91 07/01/17 02:00 57 07/01/17 00:23 99 40 07/01/17 00:00 45 07/01/17 00:00 59 07/01/17 00:00 98.4 59 35 167/91 (116) 95 06/30/17 22:00 61 06/30/17 20:00 45 06/30/17 20:00 55 06/30/17 20:00 98.2 55 19 152/81 (104) 96 06/30/17 19:45 100 40 06/30/17 16:30 96 40 06/30/17 16:00 98.3 49 22 162/79 (106) 94 06/30/17 16:00 45 06/30/17 15:00 51 23 152/76 (101) 96 06/30/17 14:02 53 25 158/81 (106) 96 06/30/17 14:00 53 28 95 06/30/17 13:00 48 22 148/83 (104) 95 06/30/17 12:05 96 40 06/30/17 12:01 54 17 154/78 (103) 95 06/30/17 12:00 45 06/30/17 12:00 98.1 55 27 93 06/30/17 11:00 60 41 157/77 (103) 95 . Laboratory Tests Test 06/30/17 04:50 07/01/17 08:30 White Blood Count 8.5 TH/MM3 9.1 TH/MM3 Red Blood Count 3.44 MIL/MM3 3.04 MIL/MM3 Hemoglobin 10.1 GM/DL 9.6 GM/DL Hematocrit 30.0 % 26.5 % Mean Corpuscular Volume 87.4 FL 87.3 FL Mean Corpuscular Hemoglobin 29.4 PG 31.5 PG Mean Corpuscular Hemoglobin Concent 33.7 % 36.1 % Red Cell Distribution Width 14.6 % 14.6 % Platelet Count 298 TH/MM3 282 TH/MM3 Mean Platelet Volume 7.3 FL 6.8 FL Neutrophils (%) (Auto) 86.2 % Lymphocytes (%) (Auto) 5.9 % Monocytes (%) (Auto) 5.5 % Eosinophils (%) (Auto) 2.0 % Basophils (%) (Auto) 0.4 % Neutrophils # (Auto) 7.9 TH/MM3 Lymphocytes # (Auto) 0.5 TH/MM3 Monocytes # (Auto) 0.5 TH/MM3 Eosinophils # (Auto) 0.2 TH/MM3 Basophils # (Auto) 0.0 TH/MM3 CBC Comment AUTO DIFF Differential Total Cells Counted 100 Neutrophils % (Manual) 51 % Band Neutrophils % 28 % Lymphocytes % 9 % Monocytes % 7 % Eosinophils % 5 % Neutrophils # (Manual) 7.2 TH/MM3 Differential Comment FINAL DIFF MANUAL Platelet Estimate NORMAL Platelet Morphology Comment NORMAL Red Cell Morphology Comment NORMAL Laboratory Tests Test 06/30/17 10:10 07/01/17 01:00 07/01/17 08:30 Blood Urea Nitrogen 4 MG/DL 8 MG/DL Creatinine 0.49 MG/DL 0.54 MG/DL Random Glucose 138 MG/DL 184 MG/DL Total Protein 5.9 GM/DL 6.0 GM/DL Albumin 1.8 GM/DL 1.7 GM/DL Calcium Level 7.5 MG/DL 7.4 MG/DL Phosphorus Level 1.9 MG/DL 2.7 MG/DL Magnesium Level 1.6 MG/DL Alkaline Phosphatase 84 U/L 79 U/L Aspartate Amino Transf (AST/SGOT) 7 U/L 8 U/L Alanine Aminotransferase (ALT/SGPT) 14 U/L 11 U/L Total Bilirubin 0.7 MG/DL 0.5 MG/DL Sodium Level 136 MEQ/L 135 MEQ/L Potassium Level 3.0 MEQ/L 3.3 MEQ/L 3.9 MEQ/L Chloride Level 102 MEQ/L 104 MEQ/L Carbon Dioxide Level 22.7 MEQ/L 21.1 MEQ/L Anion Gap 11 MEQ/L 10 MEQ/L Estimat Glomerular Filtration Rate 174 ML/MIN 155 ML/MIN Triglycerides Level 117 MG/DL Lactic Acid Level 1.4 mmol/L Protein Corrected Calcium 8.0 MG/DL Troponin I 0.10 NG/ML Imaging Abdomen X-Ray 07/01/17 0800 Signed Impressions: Service Date/Time: Saturday, July 01, 2017 08:39 - CONCLUSION: Dilated small bowel concerning for some degree of ileus or obstruction. Arvind Iyer MD Chest X-Ray 07/01/17 0000 Signed Impressions: Service Date/Time: Saturday, July 01, 2017 08:28 - CONCLUSION: Bilateral areas of consolidation being worse on the right, these are mildly worse when compared to the prior exam. Arvind Iyer MD Chest X-Ray 06/30/17 0000 Signed Impressions: Service Date/Time: Friday, June 30, 2017 16:07 - CONCLUSION: Probable pulmonary edema with bilateral parenchymal infiltrates and new focal consolidation in the right hilar and infrahilar location not present previously. Domingo Pollack MD Abdomen X-Ray 06/29/17 0000 Signed Impressions: Service Date/Time: Thursday, June 29, 2017 10:21 - CONCLUSION: Persistent distended small and large bowel. Arvind Iyer MD Abdomen X-Ray 06/24/17 0600 Signed Impressions: Service Date/Time: Saturday, June 24, 2017 03:14 - CONCLUSION: Dilated transverse colon and no definite pneumatosis intestinalis or technique, however the patient's prior CT examination was suggestive of pneumatosis. Domingo Pollack MD Chest X-Ray 06/24/17 0000 Signed Impressions: Service Date/Time: Saturday, June 24, 2017 03:08 - CONCLUSION: Bibasilar atelectasis and/or infiltrate is seen. Domingo Pollack MD Chest X-Ray 06/23/17 0000 Signed Impressions: Service Date/Time: Friday, June 23, 2017 03:45 - CONCLUSION: No significant interval change Arvind Hernandez MD CT Angiography 06/23/17 0000 Signed Impressions: Service Date/Time: Friday, June 23, 2017 20:34 - CONCLUSION: 1. No evidence of pulmonary embolus. 2. Increased patchy bilateral pulmonary consolidation with mild thin-walled cavitation of focal consolidation in the right upper lobe. This finding could be related consolidation of an area of long with emphysema involvement. 3. Mild to moderate upper lobe pulmonary parenchymal emphysema is seen. Rosas Rowell MD Abdomen/Pelvis CT 06/23/17 0000 Signed Impressions: Service Date/Time: Friday, June 23, 2017 20:34 - CONCLUSION: 1. Bowel wall pneumatosis involving the cecum and proximal transverse colon. Findings are suspicious for ischemic colitis. Surrounding inflammatory change in the intra-abdominal fat. No portal venous gas or free air identified. 2. Prominent bilateral lower lobe pulmonary consolidation. Rosas Rowell MD Abdomen X-Ray 06/23/17 0000 Signed Impressions: Service Date/Time: Friday, June 23, 2017 03:51 - CONCLUSION: Diffuse mild gaseous distention of bowel Arvind Hernandez MD Chest X-Ray 06/23/17 0000 Signed Impressions: Service Date/Time: Friday, June 23, 2017 03:45 - CONCLUSION: No significant interval change Arvind Hernandez MD Abdomen X-Ray 06/23/17 0000 Signed Impressions: Service Date/Time: Friday, June 23, 2017 03:51 - CONCLUSION: Diffuse mild gaseous distention of bowel Arvind Hernandez MD Brain MRI 06/22/17 0000 Signed Impressions: Service Date/Time: Thursday, June 22, 2017 12:10 - CONCLUSION: All ischemic changes, negative for acute ischemic event. Negative for parenchymal hemorrhage. Usman Pimentel MD FACR Abdomen/Pelvis CT 06/14/17 0000 Signed Impressions: Service Date/Time: Wednesday, June 14, 2017 22:32 - CONCLUSION: 1. Increasing basilar lung consolidation since chest CT from June 04. 2. Mild ileus. No bowel obstruction, free air or free fluid. 3. Left hip replacement. Advanced osteoarthritis right hip. NG in stomach. Rectal tube present. Humphrey Weston MD Head CT 06/04/17 0000 Signed Impressions: Service Date/Time: Sunday, June 04, 2017 18:46 - CONCLUSION: 1. No significant change compared to 06/03/17. 2. No acute infarct, acute hemorrhage , mass effect or extra-axial fluid collection. 3. Scattered old lacunar infarcts within the bilateral basal ganglia. 4. Mild periventricular and subcortical white matter small vessel ischemic changes bilaterally. 5. Old right posterior parietal infarct. 6. Chronic opacification of right mastoid air cells. Mckay Stone MD Chest CT 06/04/17 0000 Signed Impressions: Service Date/Time: Sunday, June 04, 2017 18:49 - CONCLUSION: 1. Right mid lung field and posterior bibasilar patchiness consistent with probable areas of pneumonia and/or atelectasis. Clinical correlation is recommended. 2. Tiny bilateral pleural effusions. 3. Cardiomegaly and coronary artery calcifications. 4. Minimal scattered emphysematous changes bilaterally. Mckay Stone MD Physical Exam GENERAL: Opens eyes, focusing, on the vent, NAD. SKIN: Cool, dry. No generalized rash EYES: Pupils equal and round and reactive. Extraocular motions intact. No scleral icterus. No injection or drainage. NECK: trach in place , site ok CARDIOVASCULAR: Regular rate and rhythm without murmurs, gallops, or rubs. No JVD. Peripheral pulses symmetric. RESPIRATORY/CHEST: Symmetric, unlabored respirations. Clear to auscultation. Breath sounds equal bilaterally. No wheezes, rales, or rhonchi. GASTROINTESTINAL: Abdomen, less distended mild tenderness, not guarding, BS hypoactive. GENITOURINARY: Without palpable bladder distension. condom catheter in place with clear yellow MUSCULOSKELETAL: Extremities without clubbing, cyanosis, or edema. No calf tenderness. No mottling or clubbing. NEUROLOGICAL: moves all 4 extremities, awake, alert, follows commands PSYCHIATRIC: cooperative LINE: No evidence of infection Assessment & Plan Remarks IMPRESSION Mental status change, PNA, E.coli, S/P Rx Acute VDRF, failure to wean Multiple med problems Leukocytosis, better Abdominal distention, diarrhea - C.diff negative - likely ischemic colitis C glabrata sepsis, S/P Rx New HCAP PNA (PSAE and E coli in sputum) Requiring pressors again PLAN Continue Zosyn to cover both PSAE and intraabd aerobic/anaerobic tmaara Follow temps Repeat 2 BC today Restart MIcafungin Monitor progress Weaning per CCM Karey Ayala MD Jul 01, 2017 10:58
[2017-07-01] MEDS: FAMOTIDINE 20 MG/2 ML VIAL IV PUSH SCH ×2 (11:08→23:00)
[2017-07-01] MEDS: MICAFUNGIN INJ 100 MG in SODIUM CHLORIDE 0.9% INJ 100 ML IV SCH (11:09)
--- NOTE | 2017-07-01 11:12 | HHI.GIFU ---
Subjective Remarks Mechanical ventilation, trach, PEG tube to LIWS with bile output, had several BM last night loose stools, no hematochezia (Xu Frazier) Objective Vitals I&O Vital Signs Date Time Temp Pulse Resp B/P (MAP) Pulse Ox O2 Delivery O2 Flow Rate FiO2 07/01/17 09:50 98 60 07/01/17 06:00 60 07/01/17 04:19 98 40 07/01/17 04:00 45 07/01/17 04:00 60 07/01/17 04:00 98.8 46 25 151/86 (107) 91 07/01/17 02:00 57 07/01/17 00:23 99 40 07/01/17 00:00 45 07/01/17 00:00 59 07/01/17 00:00 98.4 59 35 167/91 (116) 95 06/30/17 22:00 61 06/30/17 20:00 45 06/30/17 20:00 55 06/30/17 20:00 98.2 55 19 152/81 (104) 96 06/30/17 19:45 100 40 06/30/17 16:30 96 40 06/30/17 16:00 98.3 49 22 162/79 (106) 94 06/30/17 16:00 45 06/30/17 15:00 51 23 152/76 (101) 96 06/30/17 14:02 53 25 158/81 (106) 96 06/30/17 14:00 53 28 95 06/30/17 13:00 48 22 148/83 (104) 95 06/30/17 12:05 96 40 06/30/17 12:01 54 17 154/78 (103) 95 06/30/17 12:00 45 06/30/17 12:00 98.1 55 27 93 I/O 06/30/17 06/30/17 06/30/17 07/01/17 07/01/17 07/01/17 07:00 15:00 23:00 07:00 15:00 23:00 Intake Total 1671 ml 450 ml 1795 ml 498 ml Output Total 1150 ml 500 ml 1000 ml Balance 521 ml 450 ml 1295 ml -502 ml IV Total 1671 ml 450 ml 1795 ml 498 ml Output Urine Total 700 ml 400 ml 800 ml Gastric Drainage Total 450 ml 100 ml 200 ml # Bowel Movements 1 0 1 Laboratory Laboratory Tests Test 06/30/17 14:10 07/01/17 01:00 07/01/17 08:30 07/01/17 09:18 Prothrombin Time 12.9 Prothromb Time International Ratio 1.3 Potassium Level 3.3 3.9 Phosphorus Level 2.7 White Blood Count 9.1 Red Blood Count 3.04 Hemoglobin 9.6 Hematocrit 26.5 Mean Corpuscular Volume 87.3 Mean Corpuscular Hemoglobin 31.5 Mean Corpuscular Hemoglobin Concent 36.1 Red Cell Distribution Width 14.6 Platelet Count 282 Mean Platelet Volume 6.8 Neutrophils (%) (Auto) 86.2 Lymphocytes (%) (Auto) 5.9 Monocytes (%) (Auto) 5.5 Eosinophils (%) (Auto) 2.0 Basophils (%) (Auto) 0.4 Neutrophils # (Auto) 7.9 Lymphocytes # (Auto) 0.5 Monocytes # (Auto) 0.5 Eosinophils # (Auto) 0.2 Basophils # (Auto) 0.0 CBC Comment AUTO DIFF Differential Total Cells Counted 100 Neutrophils % (Manual) 51 Band Neutrophils % 28 Lymphocytes % 9 Monocytes % 7 Eosinophils % 5 Neutrophils # (Manual) 7.2 Differential Comment FINAL DIFF MANUAL Platelet Estimate NORMAL Platelet Morphology Comment NORMAL Red Cell Morphology Comment NORMAL Blood Urea Nitrogen 8 Creatinine 0.54 Random Glucose 184 Total Protein 6.0 Albumin 1.7 Calcium Level 7.4 Alkaline Phosphatase 79 Aspartate Amino Transf (AST/SGOT) 8 Alanine Aminotransferase (ALT/SGPT) 11 Total Bilirubin 0.5 Sodium Level 135 Chloride Level 104 Carbon Dioxide Level 21.1 Anion Gap 10 Estimat Glomerular Filtration Rate 155 Lactic Acid Level 1.4 Protein Corrected Calcium 8.0 Troponin I 0.10 Blood Gas Puncture Site RT RADIAL Blood Gas Patient Temperature 98.6 Blood Gas HCO3 20 Blood Gas Base Excess -3.3 Blood Gas Oxygen Saturation 77 Arterial Blood pH 7.42 Arterial Blood Partial Pressure CO2 32 Arterial Blood Partial Pressure O2 44 Arterial Blood Oxygen Content 9.7 Arterial Blood Carboxyhemoglobin 0.8 Arterial Blood Methemoglobin 1.4 Blood Gas Hemoglobin 9.0 Oxygen Delivery Device VENTILATOR Blood Gas Ventilator Setting PRVC/AC Blood Gas Inspired Oxygen 60 Test 07/01/17 09:38 Blood Gas Puncture Site LT RADIAL Blood Gas Patient Temperature 98.6 Blood Gas HCO3 19 Blood Gas Base Excess -4.6 Blood Gas Oxygen Saturation 96 Arterial Blood pH 7.46 Arterial Blood Partial Pressure CO2 26 Arterial Blood Partial Pressure O2 97 Arterial Blood Oxygen Content 11.9 Arterial Blood Carboxyhemoglobin 0.7 Arterial Blood Methemoglobin 1.2 Blood Gas Hemoglobin 8.7 Oxygen Delivery Device VENTILATOR Blood Gas Ventilator Setting PRVC/AC Blood Gas Inspired Oxygen 60 Date/Time Source Procedure Growth Status 06/19/17 01:35 Blood Peripheral Aerobic Blood Culture - Final NO GROWTH IN 5 DAYS Complete 06/19/17 01:35 Blood Peripheral Anaerobic Blood Culture - Final NO GROWTH IN 5 DAYS Complete 06/21/17 13:30 Sputum Expectorated Sputum Gram Stain - Final Complete 06/21/17 13:30 Sputum Culture - Final Escherichia Coli Pseudomonas Aeruginosa Complete 06/10/17 12:45 Urine Catheterized Urine Urine Culture - Final NO GROWTH IN 48 HOURS. Complete Imaging Last Impressions Abdomen X-Ray 07/01/17 0800 Signed Impressions: Service Date/Time: Saturday, July 01, 2017 08:39 - CONCLUSION: Dilated small bowel concerning for some degree of ileus or obstruction. Arvind Iyer MD Chest X-Ray 07/01/17 0000 Signed Impressions: Service Date/Time: Saturday, July 01, 2017 08:28 - CONCLUSION: Bilateral areas of consolidation being worse on the right, these are mildly worse when compared to the prior exam. Arvind Iyer MD CT Angiography 06/23/17 0000 Signed Impressions: Service Date/Time: Friday, June 23, 2017 20:34 - CONCLUSION: 1. No evidence of pulmonary embolus. 2. Increased patchy bilateral pulmonary consolidation with mild thin-walled cavitation of focal consolidation in the right upper lobe. This finding could be related consolidation of an area of long with emphysema involvement. 3. Mild to moderate upper lobe pulmonary parenchymal emphysema is seen. Rosas Rowell MD Abdomen/Pelvis CT 06/23/17 0000 Signed Impressions: Service Date/Time: Friday, June 23, 2017 20:34 - CONCLUSION: 1. Bowel wall pneumatosis involving the cecum and proximal transverse colon. Findings are suspicious for ischemic colitis. Surrounding inflammatory change in the intra-abdominal fat. No portal venous gas or free air identified. 2. Prominent bilateral lower lobe pulmonary consolidation. Rosas Rowell MD Brain MRI 06/22/17 0000 Signed Impressions: Service Date/Time: Thursday, June 22, 2017 12:10 - CONCLUSION: All ischemic changes, negative for acute ischemic event. Negative for parenchymal hemorrhage. Usman Pimentel MD FACR Head CT 06/04/17 0000 Signed Impressions: Service Date/Time: Sunday, June 04, 2017 18:46 - CONCLUSION: 1. No significant change compared to 06/03/17. 2. No acute infarct, acute hemorrhage , mass effect or extra-axial fluid collection. 3. Scattered old lacunar infarcts within the bilateral basal ganglia. 4. Mild periventricular and subcortical white matter small vessel ischemic changes bilaterally. 5. Old right posterior parietal infarct. 6. Chronic opacification of right mastoid air cells. Mckay Stone MD Chest CT 06/04/17 0000 Signed Impressions: Service Date/Time: Sunday, June 04, 2017 18:49 - CONCLUSION: 1. Right mid lung field and posterior bibasilar patchiness consistent with probable areas of pneumonia and/or atelectasis. Clinical correlation is recommended. 2. Tiny bilateral pleural effusions. 3. Cardiomegaly and coronary artery calcifications. 4. Minimal scattered emphysematous changes bilaterally. Mckay Stone MD Physical Exam HEENT: normocephalic; atraumatic; no jaundice. trach to vent CHEST: coarse on vent via trach CARDIAC: irr HR, controlled ABDOMEN: Soft, nondistended, nontender; no hepatosplenomegaly; bowel sounds minimal if any, PEG tube site clean and dry EXTREMITIES: No clubbing, cyanosis, or edema. SKIN: Normal; no rash; no jaundice. [employer] COMPLAINT SERVICE: nonverbal, eyes open, on vent, shakes head yes or no and occasionally attempts to talk through trach (Xu Frazier) Assessment and Plan Plan ASSESSMENT: - ischemic colitis/ileus- This is 61-year-old male with a history of COPD, hypertension, hyperlipidemia, CVA, schizoaffective disorder, bipolar disorder, GERD, renal failure, and arthritis who presented to the emergency room on 2016 from a [facility] facility for evaluation of altered mental status. He was found to have Pneumonia and developed respiratory failure. Abdominal soft. He under went EGD/PEG tube with our services on 06/17/17. Patient developed acute elevation on WBC, CT abdomen pelvis done on 06/23 revealed pneumatosis involving cecum and transverse colon suggesting ischemic colitis. Gen. surgery consulted and patient evaluated by Dr. Monroe today who recommends medical management at this time with IV fluids and continuation of antibiotics. Patient has not been tolerating tube feeds and currently TF on hold PEG tube to suction, green gastric out put noted in canister. Currently pt on mechanical ventilation via tracheostomy. Awake. Denies abdominal pain , No rectal bleeding or hematemesis reported. Abd X-ray on 06/26/17 No visible change in dilated loop of transverse colon. - Possible ischemic colitis GERD uncontrolled, staff noted reflux of bile substance back into trach during early a.m. hours, none further today - Chronic respiratory failure- trach KUB still shows distended large and small bowel, Anemia stable at 10.1 07/01/17- Abd X-ray today showed ileus possible obstruction had multiple BM last night, no hematochezia, PEG to LIWS with bile output hgb 9.6 PLAN: - NPO - Cont. PEG tube clamped for now - SBFT - Supportive care - Patient seen and examined by Dr. Root and myself and this note is written on his behalf. (Xu Frazier) Physician Comments Seen and examined with macario Mcnair as above. (Linette Root MD) Xu Frazier Jul 01, 2017 11:12 Linette Root MD Jul 01, 2017 20:38
--- NOTE | 2017-07-01 11:22 | EKG ---
Date Performed: 07/01/2017 Time Performed: 09:23:32 PTAGE: 61 years EKG: Sinus rhythm with PAC(s). Borderline ECG PREVIOUS TRACING : 06/21/2017 16.22 Compared to prior electrocardiogram, Premature atrial cont raction are now present DOCTOR: Tutu Caal Interpretating Date/Time 07/01/2017 11:20:58
--- NOTE | 2017-07-01 14:31 | HHI.PR ---
Subjective Remarks 61 YOWM with VDRF,Trach,COPD AC 14, Fi02 60% Became agitated Started Versed drip, better now No Fever Objective Vital Signs Vital Signs Date Time Temp Pulse Resp B/P (MAP) Pulse Ox O2 Delivery O2 Flow Rate FiO2 07/01/17 12:44 98 60 07/01/17 09:50 98 60 07/01/17 06:00 60 07/01/17 04:19 98 40 07/01/17 04:00 45 07/01/17 04:00 60 07/01/17 04:00 98.8 46 25 151/86 (107) 91 07/01/17 02:00 57 07/01/17 00:23 99 40 07/01/17 00:00 45 07/01/17 00:00 59 07/01/17 00:00 98.4 59 35 167/91 (116) 95 06/30/17 22:00 61 06/30/17 20:00 45 06/30/17 20:00 55 06/30/17 20:00 98.2 55 19 152/81 (104) 96 06/30/17 19:45 100 40 06/30/17 16:30 96 40 06/30/17 16:00 98.3 49 22 162/79 (106) 94 06/30/17 16:00 45 06/30/17 15:00 51 23 152/76 (101) 96 I/O 06/30/17 06/30/17 06/30/17 07/01/17 07/01/17 07/01/17 07:00 15:00 23:00 07:00 15:00 23:00 Intake Total 1671 ml 450 ml 1795 ml 498 ml Output Total 1150 ml 500 ml 1000 ml Balance 521 ml 450 ml 1295 ml -502 ml IV Total 1671 ml 450 ml 1795 ml 498 ml Output Urine Total 700 ml 400 ml 800 ml Gastric Drainage Total 450 ml 100 ml 200 ml # Bowel Movements 1 0 1 Result Diagram: 07/01/1730 07/01/17 0830 Objective Remarks GENERAL: MBMN WM, on Vent, sedated SKIN: Warm and dry. HEAD: Normocephalic. EYES: No scleral icterus. No injection or drainage. NECK: Supple, trachea midline. No JVD or lymphadenopathy. CARDIOVASCULAR: Regular rate and rhythm without murmurs, gallops, or rubs. RESPIRATORY: Breath sounds equal bilaterally. No accessory muscle use. GASTROINTESTINAL: Abdomen soft, non-tender, nondistended. MUSCULOSKELETAL: No cyanosis, or edema. BACK: Nontender without obvious deformity. No CVA tenderness. A/P Assessment and Plan VDRF S/P Trach COPD COPD Schzoaffective disorder Bipolar disorder PLAN: Vent support Cont Abx Sedation with Precedex and Versed Feeding tube to suction DW dr.Nemani Cuellar,Syed Ferrlel MD Jul 01, 2017 14:31
[2017-07-01] MEDS ORDERED: BISACODYL 10 MG SUPP RECTAL ONE (16:00)
--- NOTE | 2017-07-01 16:14 | HHI.CCPN ---
Subjective Remarks/Hospital Course 06/04: Mr. Reilly is a 61-year-old male with a history of COPD, hypertension, hyperlipidemia, CVA, schizoaffective disorder, bipolar disorder, GERD, renal failure, and arthritis who presented to the emergency room on 06/03/2017 from a detention facility for evaluation of altered mental status. Upon review of the medical records from the detention facility, it is noted he had a right lower lobe pneumonia diagnosed mid May. Head CT showed no acute infarct, acute hemorrhage, mass effect, or extra-axial fluid collection but scattered old lacunar infarcts within the bilateral basal ganglia. Mild periventricular and subcortical white matter small vessel ischemic changes bilaterally. Chest x-ray shows scattered bibasilar patchiness consistent with possible pneumonia. Per documentation : While in the ER, patient was in moderate respiratory distress with tachypnea and utilization of accessory abdominal muscles to breathe. His lung sounds are bilaterally congested and he is confused and a poor historian. His speech is slightly slurred but this is not a new finding. He was noted to be on 5 L nasal cannula with oxygen saturation of 94% in the emergency room. Patient was admitted to the ICU by the hospitalist service. He was initiated on heparin drip for suspicion of PE. He was also noted to have an elevated CPK and creatinine. His blood pressures were running high overnight. This afternoon patient developed worsening agitation and disorientation and confusion. His heparin was stopped earlier by Dr. Garcia due to low suspicion for PE. Patient developed worsening respiration status with respirations in the 30s and O2 sats in the mid 80s. Critical care medicine was consulted. Patient was emergently intubated by Dr. Elvira Gutierrez and I subsequently took over patient care. When I evaluated the patient he had been sedated for the intubation and is being placed on mechanical ventilation. History was obtained by discussion with Dr. Garcia, Dr. Gutierrez and ICU nursing staff as well as documentation in the chart. 06/05: Remains sedated, orally intubated on mechanical ventilation. 06/06: Sedated, orally intubated on mechanical ventilation. Failed C Pap trial today. Got extremely anxious on lightening sedation. 06/07 No events overnight. Sedated and intubated. Afebrile. 06/08 No events overnight. Sedated with Diprivan, Fentanyl and intubated. 06/09 Patient remains sedated and intubated. Afebrile.Did not tolerate CPAP trials yesterday. 06/10 Patient is sedated with Fentanyl and Diprivan. Afebrile. Did not tolerate CPAP yesterday as he became restless, agitated and tachycardic. 06/11 Patient remains sedated and intubated. Spiked fever with Tmax 101.1 06/12 No events overnight. Sedated and intubated. Afebrile. 06/13 Patient remains intubated and sedated with Diprivan, fentanyl in addition he is on Precedex drip. T:100.0 06/14 Patient remains sedated and intubated. Afebrile. Did not tolerate CPAP trials yesterday as he became tahypenic, tachycardic and restless. 06/15: agitation persists. respiratory failure persists. severely volume overloaded. has been intubated for almost 2 weeks. may require trach. CT abd/ pelvis without overt acute disease. no other source for fungemia. 06/16: s/p trach yesterday. no significant changes. 06/17: plan for PEG today. agitation persists with significant delirium. no other significant changes. 06/18: s/p PEG placement. weaning off sedation. still failing cpap trials. 06/19: cannot wean off precedex: agitated delirium persists. also still failing cpap trials. 06/20 No events overnight. On Precedex drip for agitation. T: 100.1 last night. 06/21 No events overnight. Remains on Precedex drip. Afebrile. 06/22 Patient is sedated with Fentanyl and Precedex. Afebrile. For MRI brain today. 06/23 Patient became hypotensive overnight and had episode of desaturation with says in mid 80's. Given 500ml 5% Albumin now off sedation ( Fentanyl and Precedex held). BP is better. In addition he was given Dulcolax suppos. and Mg citrate now having BM's. KUB this morning showed diffuse mild gaseous distention of bowel. FIO2 requirements is better now on 50% FIO2 with PEEP: 10 from FIO2 75 % overnight. CXR unchanged ( Consolidation LLL and Atelectasis right lung base) . T:99.9 06/24: Remains on mechanical ventilation via tracheostomy. CT abdomen pelvis done on 06/23 revealed pneumatosis involving cecum and transverse colon suggesting ischemic colitis. Gen. surgery consulted and patient evaluated by Dr. Monroe today who recommends medical management at this time with IV fluids and continuation of antibiotics. Patient not tolerating tube feeds and has abdominal distention. Maintaining blood pressure currently. 06/25: Remains on mechanical ventilation via tracheostomy. Does not appear to be in any acute distress. Still nothing by mouth. Being followed by general surgery for pneumatosis involving cecum and transverse colon. 06/26: Remains on mechanical ventilation via tracheostomy. Awake. Denies abdominal pain this morning. Has bowel sounds. Abdominal less distended. 06/27: no improvements. afebrile. restarting tube feeds slowly. 06/28: tube feeds held overnight for high residuals. reglan iv started. tolerated t-piece yesterday for short period. 06/29: In bed, awake and alert. On mechanical ventilation via tracheostomy. Not tolerating tube feeds with high residuals from PEG tube on suction. 06/30: Awake and alert. Denies any abdominal pain. Bilious emesis overnight with about 2200 cc suctioned out via PEG tube in last 24 hours. Being scheduled for colonoscopy by GI 07/01: Became tachypneic this morning with respiratory rate in the 40s. O2 sats remained in the 90s. Had to resume sedation with Versed and patient was placed back on PRBC mode mechanical ventilation. Chest x-ray done this morning shows bibasilar infiltrates, no pneumothorax or atelectasis noted. Became hypotensive requiring Levophed 2 mics per minute. Still not tolerating tube feeds and PEG tube remains to suction. Started on PPN yesterday. PICC line placed yesterday. Objective Vital Signs Date Time Temp Pulse Resp B/P (MAP) Pulse Ox O2 Delivery O2 Flow Rate FiO2 07/01/17 16:01 98 60 07/01/17 15:00 61 28 115/80 (92) 07/01/17 12:01 98.8 06/29/17 21:00 Ventilator Intake and Output 07/01/17 07/01/17 07/02/17 08:00 16:00 00:00 Intake Total 498 ml Output Total 1000 ml Balance -502 ml Result Diagram: 07/01/17 0830 07/01/17 0830 Other Results Laboratory Tests Test 07/01/17 01:00 07/01/17 08:30 07/01/17 09:18 07/01/17 09:38 Potassium Level 3.3 MEQ/L 3.9 MEQ/L Phosphorus Level 2.7 MG/DL White Blood Count 9.1 TH/MM3 Red Blood Count 3.04 MIL/MM3 Hemoglobin 9.6 GM/DL Hematocrit 26.5 % Mean Corpuscular Volume 87.3 FL Mean Corpuscular Hemoglobin 31.5 PG Mean Corpuscular Hemoglobin Concent 36.1 % Red Cell Distribution Width 14.6 % Platelet Count 282 TH/MM3 Mean Platelet Volume 6.8 FL Neutrophils (%) (Auto) 86.2 % Lymphocytes (%) (Auto) 5.9 % Monocytes (%) (Auto) 5.5 % Eosinophils (%) (Auto) 2.0 % Basophils (%) (Auto) 0.4 % Neutrophils # (Auto) 7.9 TH/MM3 Lymphocytes # (Auto) 0.5 TH/MM3 Monocytes # (Auto) 0.5 TH/MM3 Eosinophils # (Auto) 0.2 TH/MM3 Basophils # (Auto) 0.0 TH/MM3 CBC Comment AUTO DIFF Differential Total Cells Counted 100 Neutrophils % (Manual) 51 % Band Neutrophils % 28 % Lymphocytes % 9 % Monocytes % 7 % Eosinophils % 5 % Neutrophils # (Manual) 7.2 TH/MM3 Differential Comment FINAL DIFF MANUAL Platelet Estimate NORMAL Platelet Morphology Comment NORMAL Red Cell Morphology Comment NORMAL Blood Urea Nitrogen 8 MG/DL Creatinine 0.54 MG/DL Random Glucose 184 MG/DL Total Protein 6.0 GM/DL Albumin 1.7 GM/DL Calcium Level 7.4 MG/DL Alkaline Phosphatase 79 U/L Aspartate Amino Transf (AST/SGOT) 8 U/L Alanine Aminotransferase (ALT/SGPT) 11 U/L Total Bilirubin 0.5 MG/DL Sodium Level 135 MEQ/L Chloride Level 104 MEQ/L Carbon Dioxide Level 21.1 MEQ/L Anion Gap 10 MEQ/L Estimat Glomerular Filtration Rate 155 ML/MIN Lactic Acid Level 1.4 mmol/L Protein Corrected Calcium 8.0 MG/DL Troponin I 0.10 NG/ML Blood Gas Puncture Site RT RADIAL LT RADIAL Blood Gas Patient Temperature 98.6 98.6 Blood Gas HCO3 20 mmol/L 19 mmol/L Blood Gas Base Excess -3.3 mmol/L -4.6 mmol/L Blood Gas Oxygen Saturation 77 % 96 % Arterial Blood pH 7.42 7.46 Arterial Blood Partial Pressure CO2 32 mmHg 26 mmHg Arterial Blood Partial Pressure O2 44 mmHg 97 mmHg Arterial Blood Oxygen Content 9.7 Vol % 11.9 Vol % Arterial Blood Carboxyhemoglobin 0.8 % 0.7 % Arterial Blood Methemoglobin 1.4 % 1.2 % Blood Gas Hemoglobin 9.0 G/DL 8.7 G/DL Oxygen Delivery Device VENTILATOR VENTILATOR Blood Gas Ventilator Setting PRVC/AC PRVC/AC Blood Gas Inspired Oxygen 60 % 60 % Imaging Last 48 hours Impressions Abdomen X-Ray 06/24/17 0600 Signed Impressions: Service Date/Time: Saturday, June 24, 2017 03:14 - CONCLUSION: Dilated transverse colon and no definite pneumatosis intestinalis or technique, however the patient's prior CT examination was suggestive of pneumatosis. Domingo Pollack MD Chest X-Ray 06/24/17 0000 Signed Impressions: Service Date/Time: Saturday, June 24, 2017 03:08 - CONCLUSION: Bibasilar atelectasis and/or infiltrate is seen. Domingo Pollack MD Chest X-Ray 06/23/17 0000 Signed Impressions: Service Date/Time: Friday, June 23, 2017 03:45 - CONCLUSION: No significant interval change Arvind Hernandez MD CT Angiography 06/23/17 0000 Signed Impressions: Service Date/Time: Friday, June 23, 2017 20:34 - CONCLUSION: 1. No evidence of pulmonary embolus. 2. Increased patchy bilateral pulmonary consolidation with mild thin-walled cavitation of focal consolidation in the right upper lobe. This finding could be related consolidation of an area of long with emphysema involvement. 3. Mild to moderate upper lobe pulmonary parenchymal emphysema is seen. Rosas Rowell MD Abdomen/Pelvis CT 06/23/17 0000 Signed Impressions: Service Date/Time: Friday, June 23, 2017 20:34 - CONCLUSION: 1. Bowel wall pneumatosis involving the cecum and proximal transverse colon. Findings are suspicious for ischemic colitis. Surrounding inflammatory change in the intra-abdominal fat. No portal venous gas or free air identified. 2. Prominent bilateral lower lobe pulmonary consolidation. Rosas Rowell MD Abdomen X-Ray 06/23/17 0000 Signed Impressions: Service Date/Time: Friday, June 23, 2017 03:51 - CONCLUSION: Diffuse mild gaseous distention of bowel Arvind Hernandez MD Last Impressions Chest X-Ray 06/23/17 0000 Signed Impressions: Service Date/Time: Friday, June 23, 2017 03:45 - CONCLUSION: No significant interval change Arvind Hernandez MD Abdomen X-Ray 06/23/17 0000 Signed Impressions: Service Date/Time: Friday, June 23, 2017 03:51 - CONCLUSION: Diffuse mild gaseous distention of bowel Arvind Hernandez MD Brain MRI 06/22/17 0000 Signed Impressions: Service Date/Time: Thursday, June 22, 2017 12:10 - CONCLUSION: All ischemic changes, negative for acute ischemic event. Negative for parenchymal hemorrhage. Usman Pimentel MD FACR Abdomen/Pelvis CT 06/14/17 0000 Signed Impressions: Service Date/Time: Wednesday, June 14, 2017 22:32 - CONCLUSION: 1. Increasing basilar lung consolidation since chest CT from June 04. 2. Mild ileus. No bowel obstruction, free air or free fluid. 3. Left hip replacement. Advanced osteoarthritis right hip. NG in stomach. Rectal tube present. Humphrey Weston MD Head CT 06/04/17 0000 Signed Impressions: Service Date/Time: Sunday, June 04, 2017 18:46 - CONCLUSION: 1. No significant change compared to 06/03/17. 2. No acute infarct, acute hemorrhage , mass effect or extra-axial fluid collection. 3. Scattered old lacunar infarcts within the bilateral basal ganglia. 4. Mild periventricular and subcortical white matter small vessel ischemic changes bilaterally. 5. Old right posterior parietal infarct. 6. Chronic opacification of right mastoid air cells. Mckay Stone MD Chest CT 06/04/17 0000 Signed Impressions: Service Date/Time: Sunday, June 04, 2017 18:49 - CONCLUSION: 1. Right mid lung field and posterior bibasilar patchiness consistent with probable areas of pneumonia and/or atelectasis. Clinical correlation is recommended. 2. Tiny bilateral pleural effusions. 3. Cardiomegaly and coronary artery calcifications. 4. Minimal scattered emphysematous changes bilaterally. Mckay Stone MD Objective Remarks GENERAL: Patient is 61 yo on ventilator via trach. SKIN: Warm and dry. HEAD: Normocephalic. EYES: No scleral icterus. No injection or drainage. NECK: trachea midline. No JVD. + Trach CARDIOVASCULAR: Regular rate and rhythm. RESPIRATORY: equal chest rise. 40% fio2. GASTROINTESTINAL: Abdomen soft, non-tender, minimally distended, bowel sounds present. MUSCULOSKELETAL: No cyanosis, or edema. Neuro: Off sedation, follows simple commands intermittently. A/P Assessment and Plan Assessment: 61yM with history of schizoaffective d/o and bipolar d/o who presented with acute hypoxic respiratory failure and now fungemia without overt source. Not improving on pathway. No meaningful improvements over last 2 weeks. s/p trach 06/15 and PEG 06/17. remains off pathway. needs long-term acute care level of rehabilitation. tube feed intolerance persists. has been without nutrition since 06/24. Started on PPN 06/30 Plan: Neuro: Acute Metabolic Encephalopathy Agitated Delirium - improving. Schizoaffective disorder/bipolar disorder History of alcohol abuse History of CVA Monitor neuro status. Resumed sedation with Versed gtt on 07/01 MRI brain 06/22: No acute ischemic events, no hemorrhage On Lactulose level 30ml TID, Ammonia level slightly elevated 42. EEG showed mod. encephalopathy Neuro is following. Dr. Rosibel Cheatham 10mg IM q12h prn for agitation PO meds on hold. CV: Uncontrolled hypertension - resolved. hyperlipidemia Monitor HR and BP keep MAP>65mmHg Hold antihypertensive meds ( Norvasc 5mg daily, clonidine 0.3mg po q8h, Lopressor 50mg Q12) 2-D echo with normal LV/RV function Pulmo: Acute respiratory failure requiring mechanical ventilation - persistent. COPD exacerbation Resolving community acquired pneumonia Intubated and placed on mechanical ventilation on 06/04. Continue with vent support keep sat >92%. Vent bundle, bronchodilators, on prednisone taper. On PRVC CTA chest negative for PE. trach 06/[address] Sapp/Alexander continue daily SBTs. t-piece trials if tolerated. GI/liver: GERD Acute protein calorie malnutrition- severe 06/23 KUB abdomen: Mild gaseous distention of bowel Ct abd/pelvis 06/23: Pneumatosis involving cecum and transverse colon concerning for ischemia. C. Diff negative hold bowel regimen. Surgery following patient for ischemic colitis- no surgical intervention recommended at this time and they have signed off. I discussed case with Dr. Anival Madden covering for Dr. Monroe on 06/30 as patient continues to have ileus with bilious output from PEG tube and not tolerating tube feeds. hold tube feeds, keep reglan iv. restart tube feeds 06/29 after 24h of reglan. having regular bowel movements. passing flatus. Consulted GI and view of ileus for evaluation of ileus and ischemic colitis. They're planning colonoscopy for further evaluation. Started PPN on 06/30 as unable to tolerate PEG tube feeds. PICC line placed and was switched to TPN on 07/01 KUB done on 06/29 with dilated small and large bowel loops. Renal/: ROSENDO/ CKD - resolved. Rhabdomyolysis - resolved. Acute intravascular volume overload- resolved. Metabolic alkalosis- resolving. Monitor renal function, electrolytes replacement per protocol. saline lock ivf. l ID: Fungemia- resolved. Community Acquired Pneumonia- resolved. Ischemic colitis Sepsis [facility] Associated pneumonia with pseudomonas/e.coli completed full 14 day course of micagunfin for fungemia. Continue Zosyn. Micafungin added per ID CT abdomen pelvis on 06/23 shows pneumatosis involving cecum and transverse colon consistent with ischemic colitis. Patient evaluated by general surgery Dr. Monroe who at this time recommends continuing IV fluids and antibiotics and he will be available for surgery if patient develops evidence of peritonitis or worsens clinically. ID is following Sputum cx: E.coli on 06/04, sputum 06/10: normal resp tamara BC 06/14, 06/19 : NGTD, Sputum cx 06/21: E.coli, Pseudomonas Endocrine: Hyperglycemia of critical illness SSI medium scale, q4h Heme: Anemia secondary to chronic disease Monitor CBC. Prophylaxis: Pepcid/SCDs. SQ Lovenox Lines: Right sided PICC line placed 06/30 Discussed with PLASTER APPLICATOR, discussed with Dejuan Lou MD Jul 01, 2017 16:14
--- NOTE | 2017-07-01 21:23 | HHI.PR ---
Subjective Subjective Notes pt known to service appears worse small dose levo, WBC normal, lactate normal, abdomen appears soft distended, high peg output Objective Vitals/I&O Vital Signs Date Time Temp Pulse Resp B/P (MAP) Pulse Ox O2 Delivery O2 Flow Rate FiO2 07/01/17 19:31 100 60 07/01/17 18:00 57 07/01/17 16:00 98.6 23 118/75 (89) 06/29/17 21:00 Ventilator Labs Laboratory Tests Test 07/01/17 01:00 07/01/17 08:30 07/01/17 09:18 07/01/17 09:38 Potassium Level 3.3 3.9 Phosphorus Level 2.7 White Blood Count 9.1 Red Blood Count 3.04 Hemoglobin 9.6 Hematocrit 26.5 Mean Corpuscular Volume 87.3 Mean Corpuscular Hemoglobin 31.5 Mean Corpuscular Hemoglobin Concent 36.1 Red Cell Distribution Width 14.6 Platelet Count 282 Mean Platelet Volume 6.8 Neutrophils (%) (Auto) 86.2 Lymphocytes (%) (Auto) 5.9 Monocytes (%) (Auto) 5.5 Eosinophils (%) (Auto) 2.0 Basophils (%) (Auto) 0.4 Neutrophils # (Auto) 7.9 Lymphocytes # (Auto) 0.5 Monocytes # (Auto) 0.5 Eosinophils # (Auto) 0.2 Basophils # (Auto) 0.0 CBC Comment AUTO DIFF Differential Total Cells Counted 100 Neutrophils % (Manual) 51 Band Neutrophils % 28 Lymphocytes % 9 Monocytes % 7 Eosinophils % 5 Neutrophils # (Manual) 7.2 Differential Comment FINAL DIFF MANUAL Platelet Estimate NORMAL Platelet Morphology Comment NORMAL Red Cell Morphology Comment NORMAL Blood Urea Nitrogen 8 Creatinine 0.54 Random Glucose 184 Total Protein 6.0 Albumin 1.7 Calcium Level 7.4 Alkaline Phosphatase 79 Aspartate Amino Transf (AST/SGOT) 8 Alanine Aminotransferase (ALT/SGPT) 11 Total Bilirubin 0.5 Sodium Level 135 Chloride Level 104 Carbon Dioxide Level 21.1 Anion Gap 10 Estimat Glomerular Filtration Rate 155 Lactic Acid Level 1.4 Protein Corrected Calcium 8.0 Troponin I 0.10 Blood Gas Puncture Site RT RADIAL LT RADIAL Blood Gas Patient Temperature 98.6 98.6 Blood Gas HCO3 20 19 Blood Gas Base Excess -3.3 -4.6 Blood Gas Oxygen Saturation 77 96 Arterial Blood pH 7.42 7.46 Arterial Blood Partial Pressure CO2 32 26 Arterial Blood Partial Pressure O2 44 97 Arterial Blood Oxygen Content 9.7 11.9 Arterial Blood Carboxyhemoglobin 0.8 0.7 Arterial Blood Methemoglobin 1.4 1.2 Blood Gas Hemoglobin 9.0 8.7 Oxygen Delivery Device VENTILATOR VENTILATOR Blood Gas Ventilator Setting PRVC/AC PRVC/AC Blood Gas Inspired Oxygen 60 60 Date/Time Source Procedure Growth Status 07/01/17 12:09 Blood Peripheral Aerobic Blood Culture Pending Received 07/01/17 12:09 Blood Peripheral Anaerobic Blood Culture Pending Received 06/21/17 13:30 Sputum Expectorated Sputum Gram Stain - Final Complete 06/21/17 13:30 Sputum Culture - Final Escherichia Coli Pseudomonas Aeruginosa Complete 06/10/17 12:45 Urine Catheterized Urine Urine Culture - Final NO GROWTH IN 48 HOURS. Complete Abdomen: Other (soft distended, no peritoneal signs) A/P Assessment and Plan Pneumotosis high peg output, on low dose levo, normal wbc and lactate PLAN continue abdominal exams and trend labs possible pulmonary etiology vs abdominal will check CT scan discuss with Dr. Ramires will continue to follow Cyrus Juan MD Jul 01, 2017 21:23
[2017-07-01] MEDS ORDERED: DIATRIZOATE MEGLUM/DIATRIZOATE SOD 9 ML CUP PO ONE (21:30)
[2017-07-01] MEDS: CLINIMIX E 5/25 2000 mL- >42 mls/hr IV-CENTRAL SCH ×3 (23:07)
[2017-07-02] VITALS (19 sets, daily range): BP systolic 110–144; BP diastolic 62–81; PULSE 51–74; RESP 31–48; TEMP 97.8–98.5; O2SAT 96–100
[2017-07-02] MEDS ORDERED: IOHEXOL 350 MG/ML 10 ML VIAL (for RAD DIAG) IVCONTRAST ONE (00:08)
[2017-07-02] MEDS: RESP: ALBUTEROL 2.5 MG/IPRATROPIUM 0.5 MG NEB (PRN) NEB ×2 (00:24→02:54)
--- NOTE | 2017-07-02 00:30 | RADRPT ---
EXAM DATE/TIME: 07/01/2017 23:54 [facility] COMPARISON: CT PULMONARY ANGIOGRAM, June 23, 2017, 20:34. INDICATIONS : Respiratory distress. Pneumonia. Evaluate for emboli. IV CONTRAST: 100 cc Omnipaque 350 (iohexol) IV ; Cumulative dose for multiple exams. RADIATION DOSE: 14.47 CTDIvol (mGy) MEDICAL HISTORY : Cardiovascular disease. Hypertension. Cirrhosis.Hep C COPD SURGICAL HISTORY : Lobectomy. Peg tube ENCOUNTER: Initial ACUITY: 1 day PAIN SCALE: Non-responsive LOCATION: chest TECHNIQUE: Volumetric scanning of the chest was performed using a pulmonary embolism protocol MIP images were re constructed. Using automated exposure control and adjustment of the mA and/or kV according to patien t size, radiation dose was kept as low as reasonably achievable to obtain optimal diagnostic quality images. DICOM format image data is available electronically for review and comparison. Follow-up recommendations for detected pulmonary nodules are based at a minimum on nodule size and pa tient risk factors according to Fleischner Society Guidelines. FINDINGS: Study is breathing motion degraded. PULMONARY ARTERIES: No filling defects are seen in the main pulmonary arteries. Segmental branches are limited in evaluat ion due to motion. LUNGS: Worsening consolidation involving the right upper lobe. This extends from the hilum to the anterior p leural surface. Passive atelectasis is seen involving the basilar segments bilaterally. A 6 mm pulmon edda nodule within the lingula. Peribronchial thickening seen involving the central airways most prono unced within the right upper lobe. Emphysematous changes. PLEURAE: Small posterior layering pleural effusions bilaterally. MEDIASTINUM: The heart is at the upper limits of normal in terms of size. A tiny pericardial effusion noted. Coron edda artery atherosclerotic calcifications noted. Aorta is normal in caliber. No adenopathy. MUSCULOSKELETAL: Within normal limits for patient age. MISCELLANEOUS: The visualized upper abdominal organs demonstrate no acute abnormality. Tracheostomy tube. CONCLUSION: 1. Study limited by motion. 2. No pulmonary emboli. 3. Worsening consolidation within the right upper lobe. Infectious etiology suspected. 4. Small bilateral pleural effusions and associated passive atelectasis. This is new. 5. Emphysematous changes. 6. 6 mm left upper lobe pulmonary nodule. Yuri Isidro Jr., MD on July 02, 2017 at 0:24 Board Certified Radiologist. This report was verified electronically.
--- NOTE | 2017-07-02 00:36 | RADRPT ---
EXAM DATE/TIME: 07/01/2017 23:54 [place] COMPARISON: CT ABDOMEN & PELVIS W CONTRAST, June 23, 2017, 20:34. INDICATIONS : Abdomen pain. Possible ileus. IV CONTRAST: 100 cc Omnipaque 350 (iohexol) IV ; Cumulative dose for multiple exams. ORAL CONTRAST: Prescribed oral contrast ingested. RADIATION DOSE: 17.98 CTDIvol (mGy) MEDICAL HISTORY : Cardiovascular disease. Hypertension. Cirrhosis.Hep C COPD SURGICAL HISTORY : Lobectomy. Peg tube ENCOUNTER: Initial ACUITY: 1 day PAIN SCALE: Non-responsive LOCATION: Bilateral abdomen TECHNIQUE: Volumetric scanning of the abdomen and pelvis was performed. Using automated exposure control and ad justment of the mA and/or kV according to patient size, radiation dose was kept as low as reasonably achievable to obtain optimal diagnostic quality images. DICOM format image data is available electro nically for review and comparison. FINDINGS: Breathing motion degraded. LOWER LUNGS: See the CTA of the chest reported separately. LIVER: Homogeneous density without lesion. There is no dilation of the biliary tree. No calcified gallston es. SPLEEN: Normal size without lesion. PANCREAS: Within normal limits. KIDNEYS: Normal in size and shape. There is no mass, stone or hydronephrosis. ADRENAL GLANDS: Within normal limits. VASCULAR: There is no aortic aneurysm. BOWEL/MESENTERY: No pneumatosis is observed. There are dilated loops of small bowel within the anterior abdomen which is a new finding to the prior study. This predominantly involves the more proximal bowel loops. The d istal bowel loop is decompressed. No focal transition point. The bowel slowly tapers. The colon shows mild inflammatory change adjacent to the ascending colon. This is improved somewhat from the prior s tudy. No dilatation of the colon. A trace amount of free fluid deep within the pelvis. A gastrostomy tube is noted. ABDOMINAL WALL: Within normal limits. RETROPERITONEUM: There is no lymphadenopathy. BLADDER: No wall thickening or mass. REPRODUCTIVE: Within normal limits. INGUINAL: There is no lymphadenopathy or hernia. MUSCULOSKELETAL: Left hip prosthesis. Arthritis of the right hip. CONCLUSION: 1. Breathing degraded study. 2. Dilatation of proximal jejunal loops which slowly taper. No obstructing mass or lesion. This could relate to a focal ileus. I cannot completely exclude a bowel obstruction. Small amount of free fluid . 3. Mild inflammatory change involving the mesentery adjacent to the ascending colon has improved some what. No pneumatosis involving the bowel observed. Yuri Isidro Jr., MD on July 02, 2017 at 0:29 Board Certified Radiologist. This report was verified electronically.
[2017-07-02] MEDS: FAT EMULSION 20% INJ 250 ML (Daily over 8 hours) IV-CENTRAL SCH ×2 (01:06→21:02)
[2017-07-02 01:26] LABS: INTERNATIONAL NORMALIZED RATIO 1.2 RATIO; PROTHROMBIN TIME - PATIENT 12.4 SEC (9.8-11.6)
[2017-07-02] MEDS: PIPERACIL-TAZO 4.5 GM PREMIX 100 ML IV SCH ×4 (02:00→21:02)
[2017-07-02] MEDS: INSULIN NovoLIN REGULAR SUPPLEMENTAL SCALE SQ SCH ×6 (03:30→23:30)
[2017-07-02] MEDS: CHLORHEXIDINE GLUCONATE 2 % 1 PACK (2 CLOTHS) TOP SCH (04:00)
[2017-07-02] MEDS: DEXMEDETOMIDINE INJ 1,000 MCG in SODIUM CHLOR 0.9% 250 ML INJ 240 ML IV PRN ×2 (04:17→10:41)
[2017-07-02 04:45] LABS: BASOPHIL # 0.1 TH/MM3 (0-0.2); BASOPHIL % 0.9 % (0.0-2.0); EOSINOPHIL # 0.3 TH/MM3 (0-0.4); EOSINOPHIL % 2.8 % (0.0-4.0); HEMATOCRIT 27.3 % (39.0-51.0); HEMOGLOBIN 9.2 GM/DL (13.0-17.0); LYMPH % 11.4 % (9.0-44.0); LYMPHOCYTE # 1.1 TH/MM3 (1.0-4.8); MEAN CELL VOLUME 88.1 FL (80.0-100.0); MEAN CORPUSCULAR HEMOGLOBIN 29.7 PG (27.0-34.0); MEAN CORPUSCULAR HGB CONC 33.6 % (32.0-36.0); MEAN PLATELET VOLUME 7.1 FL (7.0-11.0); MONO % 5.3 % (0.0-8.0); MONOCYTE # 0.5 TH/MM3 (0-0.9); NEUT % 79.6 % (16.0-70.0); PLATELET COUNT 298 TH/MM3 (150-450); RED CELL DISTRIBUTION WIDTH 14.7 % (11.6-17.2); WHITE BLOOD COUNT 10.1 TH/MM3 (4.0-11.0)
[2017-07-02 04:50] LABS: CALCIUM 7.6 MG/DL (8.5-10.1); CREATININE 0.49 MG/DL (0.60-1.30)
[2017-07-02 06:22] LABS: BANDS 8 % (0-6); BASOPHILS 1 % (0-2); CORRECTED NUCLEATED RBC 1 /100 WBC (0-0); LYMPHOCYTES 12 % (9-44); MONOCYTES 2 % (0-8); MYELOCYTES 1 % (0-0); NEUTROPHIL # MANUAL DIFF 8.6 TH/MM3 (1.8-7.7); NUCLEATED RED BLOOD CELL 1 (0-0); POLYS (SEG NEUTROPHILS) 76 % (16-70)
[2017-07-02 06:24] LABS: POLYCHROMASIA 2.3 % (0.0-1.9); TOXIC GRANULATION 1+ (NORMAL)
[2017-07-02] MEDS: METOCLOPRAMIDE HCL 10 MG/2 ML VIAL IV PUSH SCH ×2 (06:42→21:11)
[2017-07-02] MEDS: CHLORHEXIDINE 0.12% (ORAL KIT) 15 ML CUP MT SCH ×2 (08:00→20:00)
[2017-07-02] MEDS: guanFACINE HCL 1 MG TAB PO SCH ×2 (09:00→21:00)
[2017-07-02] MEDS: SENNOSIDES SYRUP 8.8 MG/5 ML CUP PO SCH (09:00)
[2017-07-02] MEDS: NUTRISOURCE FIBER POWDER 1 PACK G-TUBE SCH ×2 (09:00→21:00)
[2017-07-02] MEDS: SODIUM CHLORIDE 0.9% FLUSH 10 ML FLUSH IV FLUSH SCH ×3 (09:00→21:00)
[2017-07-02] MEDS: MIDAZOLAM 100 MG/NS 100 ML DRIP Premix IV PRN (09:14)
[2017-07-02] MEDS: RESP: ALBUTEROL 2.5 MG/IPRATROPIUM 0.5 MG NEB (SCH) NEB ×3 (09:39→21:35)
[2017-07-02] MEDS: FAMOTIDINE 20 MG/2 ML VIAL IV PUSH SCH ×2 (11:00→21:09)
--- NOTE | 2017-07-02 13:39 | HHI.IDPN ---
Subjective Subjective Remarks ID COVERAGE 61-year-old male with a history of COPD, hypertension, hyperlipidemia, CVA, schizoaffective disorder, bipolar disorder, GERD, renal failure, and arthritis presented to the emergency room on 06/03/2017 from a assisted facilitywith altered mental status. H/o right lower lobe pneumonia in mid May. Head CT w/o acute findings Chest x-ray shows consistent with possible pneumonia. Has been intubated. Has been on vent and now S/P trach 06/15 Also with PEG Notes reviewed Had problems with low BP yesterday, on pressors BP better, off pressors Repeat CT A/P - pneumatosis resolved, ?Ileus vs SBO CT extensive pulmonary infiltrates Temps ok On the vent Antibiotics Current Medications Zosyn Micafungin Medications (Trade) Dose Ordered Sig/Solange Route Start Time Stop Time Status Last Admin (Narcan Inj) 0.4 mg UNSCH PRN IV PUSH 06/03/17 21:45 (Duoneb Neb) 1 ampule Q2HR NEB PRN NEB 06/03/17 22:45 07/02/17 02:54 (Lipitor) 40 mg HS PO 06/04/17 21:00 Future Hold 06/22/17 20:49 (Cogentin) 1 mg HS PO 06/04/17 21:00 Future Hold 06/22/17 20:49 (Aricept) 5 mg HS PO 06/04/17 21:00 Future Hold 06/22/17 21:18 (risperDAL) 1 mg HS PO 06/04/17 21:00 Future Hold 06/22/17 20:49 (Flomax) 0.4 mg HS PO 06/04/17 21:00 Future Hold 06/22/17 20:49 (Effexor Xr) 150 mg DAILY PO 06/04/17 09:00 Future Hold 06/23/17 09:59 Miscellaneous Information 1 Q361D XX 06/04/17 03:45 (Chlorhexidine 2% Cloth) Taper DAILY@04 TOP 06/04/17 04:00 05/31/18 03:59 07/02/17 04:00 (Chlorhexidine 2% Cloth) 3 pack UNSCH PRN TOP 06/04/17 03:45 (Norvasc) 5 mg DAILY PO 06/04/17 12:00 Future Hold 06/22/17 08:21 (Apresoline Inj) 10 mg Q4H PRN IV PUSH 06/04/17 13:00 06/27/17 21:52 (NS Flush) 2 ml UNSCH PRN IV FLUSH 06/04/17 16:45 06/27/17 21:53 (NS Flush) 2 ml BID IV FLUSH 06/04/17 21:00 07/01/17 22:25 (Peridex 0.12% Liq) 15 ml BID@08,20 MT 06/04/17 20:00 07/02/17 08:00 (Trandate Inj) 20 mg Q4H PRN IV PUSH 06/04/17 17:00 06/10/17 15:35 (Lovenox Inj) 40 mg Q24H SQ 06/05/17 17:00 Future Hold 06/16/17 15:33 Dexmedetomidine HCl 1000 mcg/ Sodium Chloride 250 ml @ 4.95 mls/hr TITRATE PRN IV 06/10/17 09:30 07/02/17 10:41 (Tylenol) 650 mg Q4H PRN PO 06/10/17 12:15 Future Hold 06/23/17 02:33 (Pepcid) 20 mg Q12HR PO 06/10/17 21:00 Future Hold 06/23/17 09:58 (Mycostatin Powder) 1 applic Q12HR PRN TOPICAL 06/14/17 11:00 07/02/17 09:16 (Mag-Ox) 800 mg UNSCH PRN PO 06/15/17 07:00 Magnesium Sulfate 4 gm/Sodium Chloride 100 ml @ 50 mls/hr UNSCH PRN IV 06/15/17 07:00 Magnesium Sulfate 2 gm/Sodium Chloride 100 ml @ 50 mls/hr UNSCH PRN IV 06/15/17 07:00 06/30/17 14:02 Potassium Chloride 100 ml @ 50 mls/hr Q2H PRN IV 06/15/17 07:00 06/17/17 18:35 Potassium Chloride 100 ml @ 50 mls/hr Q2H PRN IV 06/15/17 07:00 06/16/17 10:30 Potassium Chloride 100 ml @ 50 mls/hr Q2H PRN IV 06/15/17 07:00 Potassium Chloride 100 ml @ 25 mls/hr UNSCH PRN IV 06/15/17 07:00 07/01/17 02:20 (K-Phos) 2,000 mg Q4H PRN PO 06/15/17 07:00 (K-Phos) 2,000 mg UNSCH PRN PO/TUBE 06/15/17 07:00 Potassium Phosphate 30 mmol/ Sodium Chloride 260 ml @ 42 mls/hr UNSCH PRN IV 06/15/17 07:00 06/30/17 14:02 Sodium Phosphate 30 mmol/Sodium Chloride 250 ml @ 42 mls/hr UNSCH PRN IV 06/15/17 07:00 (Geodon Inj) 10 mg Q12H PRN IM 06/15/17 07:15 06/19/17 10:24 (Nutrisource Fiber Powder) 2 pack BID G-TUBE 06/15/17 09:00 07/02/17 09:00 (Tenex) 2 mg Q12HR PO 06/19/17 14:00 Future hold 07/02/17 09:00 (Senna Liq) 8.8 mg DAILY PO 06/23/17 09:00 07/02/17 09:00 (D50w (Vial) Inj) 50 ml UNSCH PRN IV PUSH 06/23/17 07:30 (Glucagon Inj) 1 mg UNSCH PRN OTHER 06/23/17 07:30 (NovoLIN R SUPPLEMENTAL SCALE) 1 Q4H SQ 06/23/17 07:30 07/02/17 11:30 (Zofran Inj) 4 mg Q8HR PRN IV PUSH 06/23/17 16:00 06/28/17 18:32 (Pepcid Inj) 20 mg Q12H IV PUSH 06/23/17 23:00 07/02/17 11:00 Piperacillin Sod/ Tazobactam Sod 100 ml @ 200 mls/hr Q6H IV 06/24/17 14:00 07/02/17 09:15 (Dilaudid Pf Inj) 0.5 mg Q4H PRN IV 06/25/17 22:15 06/29/17 15:58 (Reglan Inj) 10 mg Q8HR IV PUSH 06/27/17 22:00 07/02/17 06:42 (Haldol Inj) 5 mg Q4H PRN IV PUSH 06/28/17 08:45 Dextrose/Sodium Chloride 1,000 ml @ 60 mls/hr [id number] IV 06/29/17 07:30 06/30/17 20:14 (Ativan Inj) 2 mg Q6H PRN IV 06/29/17 16:45 07/01/17 08:00 (NS Flush) See Protocol DAILY IV FLUSH 07/01/17 09:00 07/01/17 09:41 (NS Flush) See Protocol UNSCH PRN IV FLUSH 06/30/17 16:00 (Heparin Central Flush) See Protocol DAILY IV FLUSH 07/01/17 09:00 (Heparin Central Flush) See Protocol UNSCH PRN IV FLUSH 06/30/17 16:00 (NS Flush) UNSCH PRN IV FLUSH 06/30/17 16:00 Midazolam HCl 100 ml @ 2 mls/hr TITRATE PRN IV 07/01/17 08:00 07/02/17 09:14 Norepinephrine Bitartrate 250 ml @ 7.5 mls/hr TITRATE PRN IV 07/01/17 09:15 07/01/17 19:00 Micafungin Sodium 100 mg/Sodium Chloride 100 ml @ 100 mls/hr Q24H IV 07/01/17 12:00 07/01/17 11:09 Multivitamins 10 ml/Folic Acid 1 mg/Amino Acids/ Electrolytes/ Dextrose 2,010.2 ml @ 83 mls/hr Q24H IV-CENTRAL 07/01/17 20:00 07/01/17 23:07 Fat Emulsion Intravenous 250 ml @ 31.25 mls/ hr Q24H IV-CENTRAL 07/01/17 20:00 07/02/17 01:06 (Duoneb Neb) 1 ampule Q6HR NEB NEB 07/02/17 10:00 07/02/17 09:39 Lines PIV Past Medical History COPD Hypertension Hyperlipidemia CVA Schizoaffective disorder Bipolar disorder GERD Acute renal failure Arthritis Alcohol withdrawal seizures Past Surgical History Left partial pneumonectomy Left hip surgery Allergies: Coded Allergies: hydrochlorothiazide (Unverified Allergy, Intermediate, EFFECTS HIS SODIUM LEVEL, 02/12/17) PT STATES HE IS NOT ALLERGIC codeine (Unverified Adverse Reaction, Severe, 02/12/17) PT STATES HE IS NOT ALLERGIC Objective . Vital Signs Date Time Temp Pulse Resp B/P (MAP) Pulse Ox O2 Delivery O2 Flow Rate FiO2 1/2/18 12:26 100 60 07/02/17 12:00 59 07/02/17 12:00 60 07/02/17 11:30 98.5 74 48 123/69 (87) 100 07/02/17 10:00 59 07/02/17 09:30 96 Ventilator 60 07/02/17 09:30 100 60 07/02/17 08:00 98.5 52 32 144/76 (98) 97 07/02/17 08:00 60 07/02/17 08:00 59 07/02/17 06:00 59 07/02/17 04:31 100 60 07/02/17 04:00 60 07/02/17 04:00 97.8 59 31 142/81 (101) 99 07/02/17 04:00 59 07/02/17 02:00 51 07/02/17 00:30 99 60 07/02/17 00:00 61 07/02/17 00:00 98.0 61 44 128/78 (95) 98 07/02/17 00:00 45 07/01/17 23:50 100 100 07/01/17 22:00 56 07/01/17 20:00 56 07/01/17 20:00 98.4 56 25 125/79 (94) 98 07/01/17 20:00 45 07/01/17 19:31 100 60 07/01/17 19:00 58 128/82 07/01/17 18:00 57 07/01/17 16:01 98 60 07/01/17 16:00 45 07/01/17 16:00 59 07/01/17 16:00 98.6 59 23 118/75 (89) 98 07/01/17 15:00 61 28 115/80 (92) 98 07/01/17 14:00 63 07/01/17 14:00 63 29 111/76 (88) 97 . Laboratory Tests Test 07/01/17 08:30 07/02/17 03:55 07/02/17 03:59 White Blood Count 9.1 TH/MM3 10.1 TH/MM3 TH/MM3 Red Blood Count 3.04 MIL/MM3 3.10 MIL/MM3 MIL/MM3 Hemoglobin 9.6 GM/DL 9.2 GM/DL GM/DL Hematocrit 26.5 % 27.3 % % Mean Corpuscular Volume 87.3 FL 88.1 FL FL Mean Corpuscular Hemoglobin 31.5 PG 29.7 PG PG Mean Corpuscular Hemoglobin Concent 36.1 % 33.6 % % Red Cell Distribution Width 14.6 % 14.7 % % Platelet Count 282 TH/MM3 298 TH/MM3 TH/MM3 Mean Platelet Volume 6.8 FL 7.1 FL FL Neutrophils (%) (Auto) 86.2 % 79.6 % % Lymphocytes (%) (Auto) 5.9 % 11.4 % % Monocytes (%) (Auto) 5.5 % 5.3 % % Eosinophils (%) (Auto) 2.0 % 2.8 % % Basophils (%) (Auto) 0.4 % 0.9 % % Neutrophils # (Auto) 7.9 TH/MM3 8.0 TH/MM3 TH/MM3 Lymphocytes # (Auto) 0.5 TH/MM3 1.1 TH/MM3 TH/MM3 Monocytes # (Auto) 0.5 TH/MM3 0.5 TH/MM3 TH/MM3 Eosinophils # (Auto) 0.2 TH/MM3 0.3 TH/MM3 TH/MM3 Basophils # (Auto) 0.0 TH/MM3 0.1 TH/MM3 TH/MM3 CBC Comment AUTO DIFF AUTO DIFF Differential Total Cells Counted 100 100 Neutrophils % (Manual) 51 % 76 % Band Neutrophils % 28 % 8 % Lymphocytes % 9 % 12 % Monocytes % 7 % 2 % Eosinophils % 5 % Neutrophils # (Manual) 7.2 TH/MM3 8.6 TH/MM3 Differential Comment FINAL DIFF MANUAL FINAL DIFF MANUAL Platelet Estimate NORMAL NORMAL Platelet Morphology Comment NORMAL NORMAL Red Cell Morphology Comment NORMAL Basophils % 1 % Myelocytes 1 % Nucleated Red Blood Cells 1 /100 WBC Toxic Granulation 1+ Polychromasia 2.3 % Crenated Cell 1+ Corrected White Blood Count TH/MM3 Laboratory Tests Test 07/01/17 01:00 07/01/17 08:30 07/02/17 00:55 07/02/17 03:55 Potassium Level 3.3 MEQ/L 3.9 MEQ/L 3.4 MEQ/L Phosphorus Level 2.7 MG/DL Blood Urea Nitrogen 8 MG/DL 8 MG/DL Creatinine 0.54 MG/DL 0.49 MG/DL Random Glucose 184 MG/DL 303 MG/DL Total Protein 6.0 GM/DL Albumin 1.7 GM/DL Calcium Level 7.4 MG/DL 7.6 MG/DL Alkaline Phosphatase 79 U/L Aspartate Amino Transf (AST/SGOT) 8 U/L Alanine Aminotransferase (ALT/SGPT) 11 U/L Total Bilirubin 0.5 MG/DL Sodium Level 135 MEQ/L 134 MEQ/L Chloride Level 104 MEQ/L 104 MEQ/L Carbon Dioxide Level 21.1 MEQ/L 23.0 MEQ/L Anion Gap 10 MEQ/L 7 MEQ/L Estimat Glomerular Filtration Rate 155 ML/MIN 174 ML/MIN Lactic Acid Level 1.4 mmol/L 1.0 mmol/L Protein Corrected Calcium 8.0 MG/DL Troponin I 0.10 NG/ML Test 07/02/17 03:59 Blood Urea Nitrogen MG/DL Creatinine MG/DL Random Glucose MG/DL Total Protein GM/DL Calcium Level MG/DL Sodium Level MEQ/L Potassium Level MEQ/L Chloride Level MEQ/L Carbon Dioxide Level MEQ/L Anion Gap MEQ/L Estimat Glomerular Filtration Rate ML/MIN Protein Corrected Calcium MG/DL Microbiology Date/Time Source Procedure Growth Status 07/01/17 12:09 Blood Peripheral Aerobic Blood Culture - Preliminary NO GROWTH IN 1 DAY Resulted 07/01/17 12:09 Blood Peripheral Anaerobic Blood Culture - Preliminary NO GROWTH IN 1 DAY Resulted 07/01/17 12:02 Blood Peripheral Aerobic Blood Culture - Preliminary NO GROWTH IN 1 DAY Resulted 07/01/17 12:02 Blood Peripheral Anaerobic Blood Culture - Preliminary NO GROWTH IN 1 DAY Resulted Imaging Abdomen X-Ray 07/01/17 0800 Signed Impressions: Service Date/Time: Saturday, July 01, 2017 08:39 - CONCLUSION: Dilated small bowel concerning for some degree of ileus or obstruction. Arvind Iyer MD Chest X-Ray 07/01/17 0000 Signed Impressions: Service Date/Time: Saturday, July 01, 2017 08:28 - CONCLUSION: Bilateral areas of consolidation being worse on the right, these are mildly worse when compared to the prior exam. Arvind Iyer MD Chest X-Ray 06/30/17 0000 Signed Impressions: Service Date/Time: Friday, June 30, 2017 16:07 - CONCLUSION: Probable pulmonary edema with bilateral parenchymal infiltrates and new focal consolidation in the right hilar and infrahilar location not present previously. Domingo Pollack MD Abdomen X-Ray 06/29/17 0000 Signed Impressions: Service Date/Time: Thursday, June 29, 2017 10:21 - CONCLUSION: Persistent distended small and large bowel. Arvind Iyer MD Abdomen X-Ray 06/24/17 0600 Signed Impressions: Service Date/Time: Saturday, June 24, 2017 03:14 - CONCLUSION: Dilated transverse colon and no definite pneumatosis intestinalis or technique, however the patient's prior CT examination was suggestive of pneumatosis. Domingo Pollack MD Chest X-Ray 06/24/17 0000 Signed Impressions: Service Date/Time: Saturday, June 24, 2017 03:08 - CONCLUSION: Bibasilar atelectasis and/or infiltrate is seen. Domingo Pollack MD Chest X-Ray 06/23/17 0000 Signed Impressions: Service Date/Time: Friday, June 23, 2017 03:45 - CONCLUSION: No significant interval change Arvind Hernandez MD CT Angiography 06/23/17 0000 Signed Impressions: Service Date/Time: Friday, June 23, 2017 20:34 - CONCLUSION: 1. No evidence of pulmonary embolus. 2. Increased patchy bilateral pulmonary consolidation with mild thin-walled cavitation of focal consolidation in the right upper lobe. This finding could be related consolidation of an area of long with emphysema involvement. 3. Mild to moderate upper lobe pulmonary parenchymal emphysema is seen. Rosas Rowell MD Abdomen/Pelvis CT 06/23/17 0000 Signed Impressions: Service Date/Time: Friday, June 23, 2017 20:34 - CONCLUSION: 1. Bowel wall pneumatosis involving the cecum and proximal transverse colon. Findings are suspicious for ischemic colitis. Surrounding inflammatory change in the intra-abdominal fat. No portal venous gas or free air identified. 2. Prominent bilateral lower lobe pulmonary consolidation. Rosas Rowell MD Abdomen X-Ray 06/23/17 0000 Signed Impressions: Service Date/Time: Friday, June 23, 2017 03:51 - CONCLUSION: Diffuse mild gaseous distention of bowel Arvind Hernandez MD Chest X-Ray 06/23/17 0000 Signed Impressions: Service Date/Time: Friday, June 23, 2017 03:45 - CONCLUSION: No significant interval change Arvind Hernandez MD Abdomen X-Ray 06/23/17 0000 Signed Impressions: Service Date/Time: Friday, June 23, 2017 03:51 - CONCLUSION: Diffuse mild gaseous distention of bowel Arvind Hernandez MD Brain MRI 06/22/17 0000 Signed Impressions: Service Date/Time: Thursday, June 22, 2017 12:10 - CONCLUSION: All ischemic changes, negative for acute ischemic event. Negative for parenchymal hemorrhage. Usman Pimentel MD FACR Abdomen/Pelvis CT 06/14/17 0000 Signed Impressions: Service Date/Time: Wednesday, June 14, 2017 22:32 - CONCLUSION: 1. Increasing basilar lung consolidation since chest CT from June 04. 2. Mild ileus. No bowel obstruction, free air or free fluid. 3. Left hip replacement. Advanced osteoarthritis right hip. NG in stomach. Rectal tube present. Humphrey Weston MD Head CT 06/04/17 0000 Signed Impressions: Service Date/Time: Sunday, June 04, 2017 18:46 - CONCLUSION: 1. No significant change compared to 06/03/17. 2. No acute infarct, acute hemorrhage , mass effect or extra-axial fluid collection. 3. Scattered old lacunar infarcts within the bilateral basal ganglia. 4. Mild periventricular and subcortical white matter small vessel ischemic changes bilaterally. 5. Old right posterior parietal infarct. 6. Chronic opacification of right mastoid air cells. Mckay Stone MD Chest CT 06/04/17 0000 Signed Impressions: Service Date/Time: Sunday, June 04, 2017 18:49 - CONCLUSION: 1. Right mid lung field and posterior bibasilar patchiness consistent with probable areas of pneumonia and/or atelectasis. Clinical correlation is recommended. 2. Tiny bilateral pleural effusions. 3. Cardiomegaly and coronary artery calcifications. 4. Minimal scattered emphysematous changes bilaterally. Mckay Stone MD Physical Exam GENERAL: Sedated, on the vent, NAD. SKIN: Cool, dry. No generalized rash EYES: Pupils equal and round and reactive. Extraocular motions intact. No scleral icterus. No injection or drainage. NECK: trach in place , site ok CARDIOVASCULAR: Regular rate and rhythm without murmurs, gallops, or rubs. No JVD. Peripheral pulses symmetric. RESPIRATORY/CHEST: Coarse BS bilaterally GASTROINTESTINAL: Abdomen, less distended no tenderness, not guarding, BS hypoactive. GENITOURINARY: Without palpable bladder distension. condom catheter in place with clear yellow MUSCULOSKELETAL: Extremities without clubbing, cyanosis. (+) pedal edema. No calf tenderness. No mottling or clubbing. NEUROLOGICAL: moves all 4 extremities, awake, alert, follows commands PSYCHIATRIC: cooperative LINE: No evidence of infection Assessment & Plan Remarks IMPRESSION Mental status change, PNA, E.coli, S/P Rx Acute VDRF, failure to wean Multiple med problems Leukocytosis, better Abdominal distention, diarrhea - C.diff negative - likely ischemic colitis - CT better as far as pneumatosis C glabrata sepsis, S/P Rx New HCAP PNA (PSAE and E coli in sputum) Requiring pressors again PLAN Continue Zosyn to cover both PSAE and intraabd aerobic/anaerobic tamara Follow temps Repeat sputum G/S C/S Continue Micafungin Follow C/S Monitor progress Weaning per CCM Karey Ayala MD Jul 02, 2017 13:39
--- NOTE | 2017-07-02 14:48 | HHI.PR ---
cc: Pedro Luis Monroe MD Subjective Subjective Notes Resting in bed Off pressors Objective Vitals/I&O Vital Signs Date Time Temp Pulse Resp B/P (MAP) Pulse Ox O2 Delivery O2 Flow Rate FiO2 07/02/17 14:00 59 07/02/17 12:26 100 60 07/02/17 12:00 98.3 36 130/74 (92) 07/02/17 09:30 Ventilator Labs Laboratory Tests Test 07/02/17 00:55 07/02/17 03:55 07/02/17 03:59 Prothrombin Time 12.4 Prothromb Time International Ratio 1.2 Activated Partial Thromboplast Time 28.3 Fibrinogen 413 Lactic Acid Level 1.0 White Blood Count 10.1 Red Blood Count 3.10 Hemoglobin 9.2 Hematocrit 27.3 Mean Corpuscular Volume 88.1 Mean Corpuscular Hemoglobin 29.7 Mean Corpuscular Hemoglobin Concent 33.6 Red Cell Distribution Width 14.7 Platelet Count 298 Mean Platelet Volume 7.1 Neutrophils (%) (Auto) 79.6 Lymphocytes (%) (Auto) 11.4 Monocytes (%) (Auto) 5.3 Eosinophils (%) (Auto) 2.8 Basophils (%) (Auto) 0.9 Neutrophils # (Auto) 8.0 Lymphocytes # (Auto) 1.1 Monocytes # (Auto) 0.5 Eosinophils # (Auto) 0.3 Basophils # (Auto) 0.1 CBC Comment AUTO DIFF Differential Total Cells Counted 100 Neutrophils % (Manual) 76 Band Neutrophils % 8 Lymphocytes % 12 Monocytes % 2 Basophils % 1 Neutrophils # (Manual) 8.6 Myelocytes 1 Nucleated Red Blood Cells 1 Differential Comment FINAL DIFF MANUAL Toxic Granulation 1+ Platelet Estimate NORMAL Platelet Morphology Comment NORMAL Polychromasia 2.3 Crenated Cell 1+ Blood Urea Nitrogen 8 Creatinine 0.49 Random Glucose 303 Calcium Level 7.6 Sodium Level 134 Potassium Level 3.4 Chloride Level 104 Carbon Dioxide Level 23.0 Anion Gap 7 Estimat Glomerular Filtration Rate 174 Corrected White Blood Count Total Protein Protein Corrected Calcium Date/Time Source Procedure Growth Status 07/01/17 12:09 Blood Peripheral Aerobic Blood Culture - Preliminary NO GROWTH IN 1 DAY Resulted 1/1/18 12:09 Blood Peripheral Anaerobic Blood Culture - Preliminary NO GROWTH IN 1 DAY Resulted 07/02/17 13:30 Sputum Endotracheal Gram Stain Pending Received 07/02/17 13:30 Sputum Endotracheal Sputum Culture Pending Received 06/10/17 12:45 Urine Catheterized Urine Urine Culture - Final NO GROWTH IN 48 HOURS. Complete Cardiovascular: Regular Lungs: Clear Abdomen: Other (soft; non tender; G tube to suction ) Extremities: No edema A/P Assessment and Plan 61 year old male with AMS; VDRF s/p trach placement; abdominal distension---CT Abdomen/Pelvis shows pneumatosis; reconsult due to abdominal pain; increased need for pressors -Repeat CT abd/pelvis improved -Now off pressors -Recommend trickle feed to start today -Discussed with Dr. Gutierrez -No acute surgical needs at this time -GS will follow peripherally Attending Statement Abdomen soft, no peritonitis. CT reviewed on computer, no pneumatosis, no inflammatory changes, no free air. Source of fever/sepsis still likely pulmonary. OK to start TF from GS standpoint. No indication for surgical intervention. The exam, history, and the medical decision-making described in the above note were completed with the assistance of the mid-level provider. I reviewed and agree with the findings presented. I attest that I had a [id number] encounter with the patient on the same day, and personally performed and documented my assessment and findings in the medical record. Jojo Renteria Jul 02, 2017 14:48 Pedro Luis Monroe MD Jul 04, 2017 10:52
--- NOTE | 2017-07-02 17:52 | HHI.CCPN ---
Subjective Remarks/Hospital Course 06/04: Mr. Reilly is a 61-year-old male with a history of COPD, hypertension, hyperlipidemia, CVA, schizoaffective disorder, bipolar disorder, GERD, renal failure, and arthritis who presented to the emergency room on 06/03/2017 from a nursing home facility for evaluation of altered mental status. Upon review of the medical records from the nursing home facility, it is noted he had a right lower lobe pneumonia diagnosed mid May. Head CT showed no acute infarct, acute hemorrhage, mass effect, or extra-axial fluid collection but scattered old lacunar infarcts within the bilateral basal ganglia. Mild periventricular and subcortical white matter small vessel ischemic changes bilaterally. Chest x-ray shows scattered bibasilar patchiness consistent with possible pneumonia. Per documentation : While in the ER, patient was in moderate respiratory distress with tachypnea and utilization of accessory abdominal muscles to breathe. His lung sounds are bilaterally congested and he is confused and a poor historian. His speech is slightly slurred but this is not a new finding. He was noted to be on 5 L nasal cannula with oxygen saturation of 94% in the emergency room. Patient was admitted to the ICU by the hospitalist service. He was initiated on heparin drip for suspicion of PE. He was also noted to have an elevated CPK and creatinine. His blood pressures were running high overnight. This afternoon patient developed worsening agitation and disorientation and confusion. His heparin was stopped earlier by Dr. Garcia due to low suspicion for PE. Patient developed worsening respiration status with respirations in the 30s and O2 sats in the mid 80s. Critical care medicine was consulted. Patient was emergently intubated by Dr. Elvira Gutierrez and I subsequently took over patient care. When I evaluated the patient he had been sedated for the intubation and is being placed on mechanical ventilation. History was obtained by discussion with Dr. Garcia, Dr. Gutierrez and ICU nursing staff as well as documentation in the chart. 06/05: Remains sedated, orally intubated on mechanical ventilation. 06/06: Sedated, orally intubated on mechanical ventilation. Failed C Pap trial today. Got extremely anxious on lightening sedation. 06/07 No events overnight. Sedated and intubated. Afebrile. 06/08 No events overnight. Sedated with Diprivan, Fentanyl and intubated. 06/09 Patient remains sedated and intubated. Afebrile.Did not tolerate CPAP trials yesterday. 06/10 Patient is sedated with Fentanyl and Diprivan. Afebrile. Did not tolerate CPAP yesterday as he became restless, agitated and tachycardic. 06/11 Patient remains sedated and intubated. Spiked fever with Tmax 101.1 06/12 No events overnight. Sedated and intubated. Afebrile. 06/13 Patient remains intubated and sedated with Diprivan, fentanyl in addition he is on Precedex drip. T:100.0 06/14 Patient remains sedated and intubated. Afebrile. Did not tolerate CPAP trials yesterday as he became tahypenic, tachycardic and restless. 06/15: agitation persists. respiratory failure persists. severely volume overloaded. has been intubated for almost 2 weeks. may require trach. CT abd/ pelvis without overt acute disease. no other source for fungemia. 06/16: s/p trach yesterday. no significant changes. 06/17: plan for PEG today. agitation persists with significant delirium. no other significant changes. 06/18: s/p PEG placement. weaning off sedation. still failing cpap trials. 06/19: cannot wean off precedex: agitated delirium persists. also still failing cpap trials. 06/20 No events overnight. On Precedex drip for agitation. T: 100.1 last night. 06/21 No events overnight. Remains on Precedex drip. Afebrile. 06/22 Patient is sedated with Fentanyl and Precedex. Afebrile. For MRI brain today. 06/23 Patient became hypotensive overnight and had episode of desaturation with says in mid 80's. Given 500ml 5% Albumin now off sedation ( Fentanyl and Precedex held). BP is better. In addition he was given Dulcolax suppos. and Mg citrate now having BM's. KUB this morning showed diffuse mild gaseous distention of bowel. FIO2 requirements is better now on 50% FIO2 with PEEP: 10 from FIO2 75 % overnight. CXR unchanged ( Consolidation LLL and Atelectasis right lung base) . T:99.9 06/24: Remains on mechanical ventilation via tracheostomy. CT abdomen pelvis done on 06/23 revealed pneumatosis involving cecum and transverse colon suggesting ischemic colitis. Gen. surgery consulted and patient evaluated by Dr. Monroe today who recommends medical management at this time with IV fluids and continuation of antibiotics. Patient not tolerating tube feeds and has abdominal distention. Maintaining blood pressure currently. 06/25: Remains on mechanical ventilation via tracheostomy. Does not appear to be in any acute distress. Still nothing by mouth. Being followed by general surgery for pneumatosis involving cecum and transverse colon. 06/26: Remains on mechanical ventilation via tracheostomy. Awake. Denies abdominal pain this morning. Has bowel sounds. Abdominal less distended. 06/27: no improvements. afebrile. restarting tube feeds slowly. 06/28: tube feeds held overnight for high residuals. reglan iv started. tolerated t-piece yesterday for short period. 06/29: In bed, awake and alert. On mechanical ventilation via tracheostomy. Not tolerating tube feeds with high residuals from PEG tube on suction. 06/30: Awake and alert. Denies any abdominal pain. Bilious emesis overnight with about 2200 cc suctioned out via PEG tube in last 24 hours. Being scheduled for colonoscopy by GI 07/01: Became tachypneic this morning with respiratory rate in the 40s. O2 sats remained in the 90s. Had to resume sedation with Versed and patient was placed back on PRBC mode mechanical ventilation. Chest x-ray done this morning shows bibasilar infiltrates, no pneumothorax or atelectasis noted. Became hypotensive requiring Levophed 2 mics per minute. Still not tolerating tube feeds and PEG tube remains to suction. Started on PPN yesterday. PICC line placed yesterday. 07/02: No intervention per general surgery Dr. Monroe. No intervention per GI which has signed off. Instructed to possibly begin trickle feeds Objective Vital Signs Date Time Temp Pulse Resp B/P (MAP) Pulse Ox O2 Delivery O2 Flow Rate FiO2 07/02/17 17:00 100 60 07/02/17 14:00 59 07/02/17 12:00 98.3 36 130/74 (92) 07/02/17 09:30 Ventilator Intake and Output 07/02/17 07/02/17 07/03/17 08:00 16:00 00:00 Intake Total 800 ml Output Total 2200 ml Balance -1400 ml Imaging Last 48 hours Impressions Abdomen X-Ray 06/24/17 0600 Signed Impressions: Service Date/Time: Saturday, June 24, 2017 03:14 - CONCLUSION: Dilated transverse colon and no definite pneumatosis intestinalis or technique, however the patient's prior CT examination was suggestive of pneumatosis. Domingo Pollack MD Chest X-Ray 06/24/17 0000 Signed Impressions: Service Date/Time: Saturday, June 24, 2017 03:08 - CONCLUSION: Bibasilar atelectasis and/or infiltrate is seen. Domingo Pollack MD Chest X-Ray 06/23/17 0000 Signed Impressions: Service Date/Time: Friday, June 23, 2017 03:45 - CONCLUSION: No significant interval change Arvind Hernandez MD CT Angiography 06/23/17 0000 Signed Impressions: Service Date/Time: Friday, June 23, 2017 20:34 - CONCLUSION: 1. No evidence of pulmonary embolus. 2. Increased patchy bilateral pulmonary consolidation with mild thin-walled cavitation of focal consolidation in the right upper lobe. This finding could be related consolidation of an area of long with emphysema involvement. 3. Mild to moderate upper lobe pulmonary parenchymal emphysema is seen. Rosas Rowell MD Abdomen/Pelvis CT 06/23/17 0000 Signed Impressions: Service Date/Time: Friday, June 23, 2017 20:34 - CONCLUSION: 1. Bowel wall pneumatosis involving the cecum and proximal transverse colon. Findings are suspicious for ischemic colitis. Surrounding inflammatory change in the intra-abdominal fat. No portal venous gas or free air identified. 2. Prominent bilateral lower lobe pulmonary consolidation. Rosas Rowell MD Abdomen X-Ray 06/23/17 0000 Signed Impressions: Service Date/Time: Friday, June 23, 2017 03:51 - CONCLUSION: Diffuse mild gaseous distention of bowel Arvind Hernandez MD Last Impressions Chest X-Ray 06/23/17 0000 Signed Impressions: Service Date/Time: Friday, June 23, 2017 03:45 - CONCLUSION: No significant interval change Arvind Hernandez MD Abdomen X-Ray 06/23/17 0000 Signed Impressions: Service Date/Time: Friday, June 23, 2017 03:51 - CONCLUSION: Diffuse mild gaseous distention of bowel Arvind Hernandez MD Brain MRI 06/22/17 0000 Signed Impressions: Service Date/Time: Thursday, June 22, 2017 12:10 - CONCLUSION: All ischemic changes, negative for acute ischemic event. Negative for parenchymal hemorrhage. Usman Pimentel MD FACR Abdomen/Pelvis CT 06/14/17 0000 Signed Impressions: Service Date/Time: Wednesday, June 14, 2017 22:32 - CONCLUSION: 1. Increasing basilar lung consolidation since chest CT from June 04. 2. Mild ileus. No bowel obstruction, free air or free fluid. 3. Left hip replacement. Advanced osteoarthritis right hip. NG in stomach. Rectal tube present. Humphrey Weston MD Head CT 06/04/17 0000 Signed Impressions: Service Date/Time: Sunday, June 04, 2017 18:46 - CONCLUSION: 1. No significant change compared to 06/03/17. 2. No acute infarct, acute hemorrhage , mass effect or extra-axial fluid collection. 3. Scattered old lacunar infarcts within the bilateral basal ganglia. 4. Mild periventricular and subcortical white matter small vessel ischemic changes bilaterally. 5. Old right posterior parietal infarct. 6. Chronic opacification of right mastoid air cells. Mckay Stone MD Chest CT 06/04/17 0000 Signed Impressions: Service Date/Time: Sunday, June 04, 2017 18:49 - CONCLUSION: 1. Right mid lung field and posterior bibasilar patchiness consistent with probable areas of pneumonia and/or atelectasis. Clinical correlation is recommended. 2. Tiny bilateral pleural effusions. 3. Cardiomegaly and coronary artery calcifications. 4. Minimal scattered emphysematous changes bilaterally. Mckay Stone MD Objective Remarks GENERAL: Patient is 61 yo gentleman on ventilator via trach. SKIN: Warm and dry. HEAD: Normocephalic. EYES: No scleral icterus. No injection or drainage. NECK: trachea midline. No JVD. + Trach CARDIOVASCULAR: Regular rate and rhythm. RESPIRATORY: equal chest rise. 40% fio2. GASTROINTESTINAL: Abdomen soft, non-tender, minimally distended, bowel sounds present. MUSCULOSKELETAL: No cyanosis, or edema. Neuro: Off sedation, follows simple commands intermittently. A/P Assessment and Plan Assessment: 61yM with history of schizoaffective d/o and bipolar d/o who presented with acute hypoxic respiratory failure and now fungemia without overt source. Not improving on pathway. No meaningful improvements over last 2 weeks. s/p trach 06/15 and PEG 06/17. remains off pathway. needs long-term acute care level of rehabilitation. tube feed intolerance persists. has been without nutrition since 06/24. Started on PPN 06/30 Plan: Neuro: Acute Metabolic Encephalopathy Agitated Delirium - improving. Schizoaffective disorder/bipolar disorder History of alcohol abuse History of CVA Monitor neuro status. Resumed sedation with Versed gtt on 07/01 MRI brain 06/22: No acute ischemic events, no hemorrhage On Lactulose level 30ml TID, Ammonia level slightly elevated 42. EEG showed mod. encephalopathy Neuro is following. Dr. Rosibel Cheatham 10mg IM q12h prn for agitation PO meds on hold. CV: Uncontrolled hypertension - resolved. hyperlipidemia Monitor HR and BP keep MAP>65mmHg Hold antihypertensive meds ( Norvasc 5mg daily, clonidine 0.3mg po q8h, Lopressor 50mg Q12) 2-D echo with normal LV/RV function Pulmo: Acute respiratory failure requiring mechanical ventilation - persistent. COPD exacerbation Resolving community acquired pneumonia Intubated and placed on mechanical ventilation on 06/04. Continue with vent support keep sat >92%. Vent bundle, bronchodilators, on prednisone taper. On PRVC CTA chest negative for PE. trach 06/[address] Sapp/Alexander continue daily SBTs. t-piece trials if tolerated. GI/liver: GERD Acute protein calorie malnutrition- severe 06/23 KUB abdomen: Mild gaseous distention of bowel Ct abd/pelvis 06/23: Pneumatosis involving cecum and transverse colon concerning for ischemia. C. Diff negative hold bowel regimen. Surgery following patient for ischemic colitis- no surgical intervention recommended at this time and they have signed off. I discussed case with Dr. Anival Madden covering for Dr. Monroe on 06/30 as patient continues to have ileus with bilious output from PEG tube and not tolerating tube feeds. hold tube feeds, keep reglan iv. restart tube feeds 06/29 after 24h of reglan. having regular bowel movements. passing flatus. Consulted GI and view of ileus for evaluation of ileus and ischemic colitis. They're planning colonoscopy for further evaluation. Started PPN on 06/30 as unable to tolerate PEG tube feeds. PICC line placed and was switched to TPN on 07/01 KUB done on 06/29 with dilated small and large bowel loops. 2: Discussed with Dr. Caraballo requested to restart tube feeds Renal/: ROSENDO/ CKD - resolved. Rhabdomyolysis - resolved. Acute intravascular volume overload- resolved. Metabolic alkalosis- resolving. Monitor renal function, electrolytes replacement per protocol. saline lock ivf. l ID: Fungemia- resolved. Community Acquired Pneumonia- resolved. Ischemic colitis Sepsis [facility] Associated pneumonia with pseudomonas/e.coli completed full 14 day course of micagunfin for fungemia. Continue Zosyn. Micafungin added per ID CT abdomen pelvis on 06/23 shows pneumatosis involving cecum and transverse colon consistent with ischemic colitis. Patient evaluated by general surgery Dr. Monroe who at this time recommends continuing IV fluids and antibiotics and he will be available for surgery if patient develops evidence of peritonitis or worsens clinically. ID is following Sputum cx: E.coli on 06/04, sputum 06/10: normal resp tamara BC 06/14, 06/19 : NGTD, Sputum cx 06/21: E.coli, Pseudomonas Endocrine: Hyperglycemia of critical illness SSI medium scale, q4h Heme: Anemia secondary to chronic disease Monitor CBC. Prophylaxis: Pepcid/SCDs. SQ Lovenox Lines: Right sided PICC line placed 06/30 Discussed with [facility] [employer], discussed with Dr. Monroe my billing statement This patient remains critically ill with one or more organ systems which are or may become a threat to life. I have spent in excess of 35 minutes discontinuously in the care and management of this patient. This time is exclusive of procedures, and includes, but is not limited to, evaluation of the patient, review of the medical record, discussions with family, consultants, nursing staff, or respiratory therapy, and documentation in the medical record. Physician Elvira Null MD Jul 02, 2017 17:52
--- NOTE | 2017-07-02 18:34 | HHI.PR ---
Subjective Remarks 61 YOWM with VDRF,Trach,COPD AC 14, Fi02 60% Sedated with Diprivan and Precedex No Fever Feeding tube off Suction Gets agitated and starts belly breathing Objective Vital Signs Vital Signs Date Time Temp Pulse Resp B/P (MAP) Pulse Ox O2 Delivery O2 Flow Rate FiO2 07/02/17 17:00 100 60 07/02/17 14:00 59 07/02/17 12:26 100 60 07/02/17 12:00 59 07/02/17 12:00 98.3 69 36 130/74 (92) 100 07/02/17 12:00 60 07/02/17 11:30 98.5 74 48 123/69 (87) 100 07/02/17 10:00 59 07/02/17 09:30 96 Ventilator 60 07/02/17 09:30 100 60 07/02/17 08:00 98.5 52 32 144/76 (98) 97 07/02/17 08:00 60 07/02/17 08:00 59 07/02/17 06:00 59 07/02/17 04:31 100 60 07/02/17 04:00 60 07/02/17 04:00 97.8 59 31 142/81 (101) 99 07/02/17 04:00 59 07/02/17 02:00 51 07/02/17 00:30 99 60 07/02/17 00:00 61 07/02/17 00:00 98.0 61 44 128/78 (95) 98 07/02/17 00:00 45 07/01/17 23:50 100 100 07/01/17 22:00 56 07/01/17 20:00 56 07/01/17 20:00 98.4 56 25 125/79 (94) 98 07/01/17 20:00 45 07/01/17 19:31 100 60 07/01/17 19:00 58 128/82 I/O 07/01/17 07/01/17 07/01/17 07/02/17 07/02/17 07/02/17 07:00 15:00 23:00 07:00 15:00 23:00 Intake Total 498 ml 2300 ml 800 ml Output Total 1000 ml 2200 ml Balance -502 ml 2300 ml -1400 ml Intake Oral 0 ml IV Total 498 ml 2300 ml 800 ml Output Urine Total 800 ml 2200 ml Gastric Drainage Total 200 ml # Bowel Movements 1 1 Objective Remarks GENERAL: MBMN WM, on Vent, sedated SKIN: Warm and dry. HEAD: Normocephalic. EYES: No scleral icterus. No injection or drainage. NECK: Supple, trachea midline. No JVD or lymphadenopathy. CARDIOVASCULAR: Regular rate and rhythm without murmurs, gallops, or rubs. RESPIRATORY: Breath sounds equal bilaterally. No accessory muscle use. GASTROINTESTINAL: Abdomen soft, non-tender, nondistended. MUSCULOSKELETAL: No cyanosis, or edema. BACK: Nontender without obvious deformity. No CVA tenderness. A/P Assessment and Plan VDRF S/P Trach COPD COPD Schzoaffective disorder Bipolar disorder PLAN: Vent support Cont Abx Sedation with Precedex and Versed Syed Cuellar MD Jul 02, 2017 18:34
[2017-07-02] MEDS: CLINIMIX E 5/25 2000 mL- >42 mls/hr IV-CENTRAL SCH ×3 (21:03)
[2017-07-03] VITALS (18 sets, daily range): BP systolic 108–140; BP diastolic 63–77; PULSE 58–121; RESP 28–38; TEMP 97.5–98.9; O2SAT 96–100
[2017-07-03] MEDS: PIPERACIL-TAZO 4.5 GM PREMIX 100 ML IV SCH ×4 (00:11→22:43)
[2017-07-03] MEDS: MIDAZOLAM 100 MG/NS 100 ML DRIP Premix IV PRN ×2 (00:12→17:40)
[2017-07-03] MEDS: DEXMEDETOMIDINE INJ 1,000 MCG in SODIUM CHLOR 0.9% 250 ML INJ 240 ML IV PRN ×3 (00:15→21:35)
[2017-07-03] MEDS: INSULIN NovoLIN REGULAR SUPPLEMENTAL SCALE SQ SCH ×6 (03:30→23:30)
[2017-07-03] MEDS: CHLORHEXIDINE GLUCONATE 2 % 1 PACK (2 CLOTHS) TOP SCH (04:00)
[2017-07-03] MEDS: RESP: ALBUTEROL 2.5 MG/IPRATROPIUM 0.5 MG NEB (SCH) NEB ×4 (04:33→20:57)
[2017-07-03 05:36] LABS: HEMATOCRIT 25.1 % (39.0-51.0); HEMOGLOBIN 8.4 GM/DL (13.0-17.0); MEAN CELL VOLUME 88.3 FL (80.0-100.0); MEAN CORPUSCULAR HEMOGLOBIN 29.6 PG (27.0-34.0); MEAN CORPUSCULAR HGB CONC 33.5 % (32.0-36.0); MEAN PLATELET VOLUME 7.2 FL (7.0-11.0); PLATELET COUNT 274 TH/MM3 (150-450); RED BLOOD COUNT 2.84 MIL/MM3 (4.50-5.90); RED CELL DISTRIBUTION WIDTH 14.8 % (11.6-17.2); WHITE BLOOD COUNT 8.7 TH/MM3 (4.0-11.0)
[2017-07-03] MEDS: METOCLOPRAMIDE HCL 10 MG/2 ML VIAL IV PUSH SCH ×3 (06:34→22:37)
[2017-07-03] MEDS: CHLORHEXIDINE 0.12% (ORAL KIT) 15 ML CUP MT SCH ×2 (08:07→20:00)
[2017-07-03] MEDS: SODIUM CHLORIDE 0.9% FLUSH 10 ML FLUSH IV FLUSH SCH ×3 (08:08→22:38)
[2017-07-03] MEDS: SENNOSIDES SYRUP 8.8 MG/5 ML CUP PO SCH (08:11)
[2017-07-03] MEDS: guanFACINE HCL 1 MG TAB PO SCH ×2 (08:12→21:00)
[2017-07-03] MEDS: NUTRISOURCE FIBER POWDER 1 PACK G-TUBE SCH ×2 (08:13→21:00)
--- NOTE | 2017-07-03 11:11 | HHI.IDPN ---
Subjective Subjective Remarks ID COVERAGE 61-year-old male with a history of COPD, hypertension, hyperlipidemia, CVA, schizoaffective disorder, bipolar disorder, GERD, renal failure, and arthritis presented to the emergency room on 06/03/2017 from a [facility]. H/o right lower lobe pneumonia in mid May. Head CT w/o acute findings Chest x-ray shows consistent with possible pneumonia. Has been intubated. Has been on vent and now S/P trach 06/15 Also with PEG Notes reviewed Temps ok BP ok, off pressors Repeat CT A/P - pneumatosis resolved, ?Ileus vs SBO CT extensive pulmonary infiltrates On the vent Antibiotics Current Medications Zosyn Micafungin Medications (Trade) Dose Ordered Sig/Solange Route Start Time Stop Time Status Last Admin (Narcan Inj) 0.4 mg UNSCH PRN IV PUSH 06/03/17 21:45 (Duoneb Neb) 1 ampule Q2HR NEB PRN NEB 06/03/17 22:45 07/02/17 02:54 (Lipitor) 40 mg HS PO 06/04/17 21:00 Future Hold 06/22/17 20:49 (Cogentin) 1 mg HS PO 06/04/17 21:00 Future Hold 06/22/17 20:49 (Aricept) 5 mg HS PO 06/04/17 21:00 Future Hold 06/22/17 21:18 (risperDAL) 1 mg HS PO 06/04/17 21:00 Future Hold 06/22/17 20:49 (Flomax) 0.4 mg HS PO 06/04/17 21:00 Future Hold 06/22/17 20:49 (Effexor Xr) 150 mg DAILY PO 06/04/17 09:00 Future Hold 06/23/17 09:59 Miscellaneous Information 1 Q361D XX 06/04/17 03:45 (Chlorhexidine 2% Cloth) Taper DAILY@04 TOP 06/04/17 04:00 05/31/18 03:59 07/03/17 04:00 (Chlorhexidine 2% Cloth) 3 pack UNSCH PRN TOP 06/04/17 03:45 (Norvasc) 5 mg DAILY PO 06/04/17 12:00 Future Hold 06/22/17 08:21 (Apresoline Inj) 10 mg Q4H PRN IV PUSH 06/04/17 13:00 06/27/17 21:52 (NS Flush) 2 ml UNSCH PRN IV FLUSH 06/04/17 16:45 06/27/17 21:53 (NS Flush) 2 ml BID IV FLUSH 06/04/17 21:00 07/02/17 21:00 (Peridex 0.12% Liq) 15 ml BID@08,20 MT 06/04/17 20:00 07/03/17 08:07 (Trandate Inj) 20 mg Q4H PRN IV PUSH 06/04/17 17:00 06/10/17 15:35 (Lovenox Inj) 40 mg Q24H SQ 06/05/17 17:00 Future Hold 06/16/17 15:33 Dexmedetomidine HCl 1000 mcg/ Sodium Chloride 250 ml @ 4.95 mls/hr TITRATE PRN IV 06/10/17 09:30 07/03/17 08:14 (Tylenol) 650 mg Q4H PRN PO 06/10/17 12:15 Future Hold 06/23/17 02:33 (Pepcid) 20 mg Q12HR PO 06/10/17 21:00 Future Hold 06/23/17 09:58 (Mycostatin Powder) 1 applic Q12HR PRN TOPICAL 06/14/17 11:00 07/02/17 09:16 (Mag-Ox) 800 mg UNSCH PRN PO 06/15/17 07:00 Magnesium Sulfate 4 gm/Sodium Chloride 100 ml @ 50 mls/hr UNSCH PRN IV 06/15/17 07:00 Magnesium Sulfate 2 gm/Sodium Chloride 100 ml @ 50 mls/hr UNSCH PRN IV 06/15/17 07:00 06/30/17 14:02 Potassium Chloride 100 ml @ 50 mls/hr Q2H PRN IV 06/15/17 07:00 06/17/17 18:35 Potassium Chloride 100 ml @ 50 mls/hr Q2H PRN IV 06/15/17 07:00 06/16/17 10:30 Potassium Chloride 100 ml @ 50 mls/hr Q2H PRN IV 06/15/17 07:00 Potassium Chloride 100 ml @ 25 mls/hr UNSCH PRN IV 06/15/17 07:00 07/01/17 02:20 (K-Phos) 2,000 mg Q4H PRN PO 06/15/17 07:00 (K-Phos) 2,000 mg UNSCH PRN PO/TUBE 06/15/17 07:00 Potassium Phosphate 30 mmol/ Sodium Chloride 260 ml @ 42 mls/hr UNSCH PRN IV 06/15/17 07:00 06/30/17 14:02 Sodium Phosphate 30 mmol/Sodium Chloride 250 ml @ 42 mls/hr UNSCH PRN IV 06/15/17 07:00 (Geodon Inj) 10 mg Q12H PRN IM 06/15/17 07:15 06/19/17 10:24 (Nutrisource Fiber Powder) 2 pack BID G-TUBE 06/15/17 09:00 07/03/17 08:13 (Tenex) 2 mg Q12HR PO 06/19/17 14:00 Future hold 07/03/17 08:12 (Senna Liq) 8.8 mg DAILY PO 06/23/17 09:00 07/03/17 08:11 (D50w (Vial) Inj) 50 ml UNSCH PRN IV PUSH 06/23/17 07:30 (Glucagon Inj) 1 mg UNSCH PRN OTHER 06/23/17 07:30 (NovoLIN R SUPPLEMENTAL SCALE) 1 Q4H SQ 06/23/17 07:30 07/03/17 08:06 (Zofran Inj) 4 mg Q8HR PRN IV PUSH 06/23/17 16:00 06/28/17 18:32 (Pepcid Inj) 20 mg Q12H IV PUSH 06/23/17 23:00 07/02/17 21:09 Piperacillin Sod/ Tazobactam Sod 100 ml @ 200 mls/hr Q6H IV 06/24/17 14:00 07/03/17 08:07 (Dilaudid Pf Inj) 0.5 mg Q4H PRN IV 06/25/17 22:15 06/29/17 15:58 (Reglan Inj) 10 mg Q8HR IV PUSH 06/27/17 22:00 07/03/17 06:34 (Haldol Inj) 5 mg Q4H PRN IV PUSH 06/28/17 08:45 Dextrose/Sodium Chloride 1,000 ml @ 60 mls/hr [id number] IV 06/29/17 07:30 06/30/17 20:14 (Ativan Inj) 2 mg Q6H PRN IV 06/29/17 16:45 07/01/17 08:00 (NS Flush) See Protocol DAILY IV FLUSH 07/01/17 09:00 07/01/17 09:41 (NS Flush) See Protocol UNSCH PRN IV FLUSH 06/30/17 16:00 (Heparin Central Flush) See Protocol DAILY IV FLUSH 07/01/17 09:00 (Heparin Central Flush) See Protocol UNSCH PRN IV FLUSH 06/30/17 16:00 (NS Flush) UNSCH PRN IV FLUSH 06/30/17 16:00 Midazolam HCl 100 ml @ 2 mls/hr TITRATE PRN IV 07/01/17 08:00 07/03/17 00:12 Norepinephrine Bitartrate 250 ml @ 7.5 mls/hr TITRATE PRN IV 07/01/17 09:15 07/01/17 19:00 Micafungin Sodium 100 mg/Sodium Chloride 100 ml @ 100 mls/hr Q24H IV 07/01/17 12:00 07/01/17 11:09 Multivitamins 10 ml/Folic Acid 1 mg/Amino Acids/ Electrolytes/ Dextrose 2,010.2 ml @ 83 mls/hr Q24H IV-CENTRAL 07/01/17 20:00 07/02/17 21:03 Fat Emulsion Intravenous 250 ml @ 31.25 mls/ hr Q24H IV-CENTRAL 07/01/17 20:00 07/02/17 21:02 (Duoneb Neb) 1 ampule Q6HR [facility] 07/02/17 10:00 07/03/17 07:46 Lines PIV Past Medical History COPD Hypertension Hyperlipidemia CVA Schizoaffective disorder Bipolar disorder GERD Acute renal failure Arthritis Alcohol withdrawal seizures Past Surgical History Left partial pneumonectomy Left hip surgery Allergies: Coded Allergies: hydrochlorothiazide (Unverified Allergy, Intermediate, EFFECTS HIS SODIUM LEVEL, 02/12/17) PT STATES HE IS NOT ALLERGIC codeine (Unverified Adverse Reaction, Severe, 02/12/17) PT STATES HE IS NOT ALLERGIC Objective . Vital Signs Date Time Temp Pulse Resp B/P (MAP) Pulse Ox O2 Delivery O2 Flow Rate FiO2 1/3/18 10:00 59 07/03/17 08:00 58 07/03/17 08:00 97.5 58 31 123/65 (84) 96 07/03/17 07:49 97 50 07/03/17 06:00 61 07/03/17 04:18 99 60 07/03/17 04:00 98.7 59 30 108/63 (78) 99 07/03/17 04:00 59 07/03/17 04:00 60 07/03/17 02:00 60 07/03/17 00:59 100 60 07/03/17 00:00 60 07/03/17 00:00 98.9 61 32 128/68 (88) 98 07/03/17 00:00 61 07/02/17 22:00 65 07/02/17 21:36 98 60 07/02/17 20:00 60 07/02/17 20:00 98.5 63 34 110/62 (78) 98 07/02/17 20:00 63 07/02/17 18:00 59 07/02/17 17:00 100 60 07/02/17 16:00 59 07/02/17 16:00 98.5 61 33 119/64 (82) 100 07/02/17 16:00 60 07/02/17 14:00 59 07/02/17 12:26 100 60 07/02/17 12:00 59 07/02/17 12:00 98.3 69 36 130/74 (92) 100 07/02/17 12:00 60 07/02/17 11:30 98.5 74 48 123/69 (87) 100 . Laboratory Tests Test 07/02/17 03:55 07/02/17 03:59 07/03/17 05:10 White Blood Count 10.1 TH/MM3 TH/MM3 8.7 TH/MM3 Red Blood Count 3.10 MIL/MM3 MIL/MM3 2.84 MIL/MM3 Hemoglobin 9.2 GM/DL GM/DL 8.4 GM/DL Hematocrit 27.3 % % 25.1 % Mean Corpuscular Volume 88.1 FL FL 88.3 FL Mean Corpuscular Hemoglobin 29.7 PG PG 29.6 PG Mean Corpuscular Hemoglobin Concent 33.6 % % 33.5 % Red Cell Distribution Width 14.7 % % 14.8 % Platelet Count 298 TH/MM3 TH/MM3 274 TH/MM3 Mean Platelet Volume 7.1 FL FL 7.2 FL Neutrophils (%) (Auto) 79.6 % % Lymphocytes (%) (Auto) 11.4 % % Monocytes (%) (Auto) 5.3 % % Eosinophils (%) (Auto) 2.8 % % Basophils (%) (Auto) 0.9 % % Neutrophils # (Auto) 8.0 TH/MM3 TH/MM3 Lymphocytes # (Auto) 1.1 TH/MM3 TH/MM3 Monocytes # (Auto) 0.5 TH/MM3 TH/MM3 Eosinophils # (Auto) 0.3 TH/MM3 TH/MM3 Basophils # (Auto) 0.1 TH/MM3 TH/MM3 CBC Comment AUTO DIFF Differential Total Cells Counted 100 Neutrophils % (Manual) 76 % Band Neutrophils % 8 % Lymphocytes % 12 % Monocytes % 2 % Basophils % 1 % Neutrophils # (Manual) 8.6 TH/MM3 Myelocytes 1 % Nucleated Red Blood Cells 1 /100 WBC Differential Comment FINAL DIFF MANUAL Toxic Granulation 1+ Platelet Estimate NORMAL Platelet Morphology Comment NORMAL Polychromasia 2.3 % Crenated Cell 1+ Corrected White Blood Count TH/MM3 Laboratory Tests Test 07/02/17 00:55 07/02/17 03:55 07/02/17 03:59 Lactic Acid Level 1.0 mmol/L Blood Urea Nitrogen 8 MG/DL MG/DL Creatinine 0.49 MG/DL MG/DL Random Glucose 303 MG/DL MG/DL Calcium Level 7.6 MG/DL MG/DL Sodium Level 134 MEQ/L MEQ/L Potassium Level 3.4 MEQ/L MEQ/L Chloride Level 104 MEQ/L MEQ/L Carbon Dioxide Level 23.0 MEQ/L MEQ/L Anion Gap 7 MEQ/L MEQ/L Estimat Glomerular Filtration Rate 174 ML/MIN ML/MIN Total Protein GM/DL Protein Corrected Calcium MG/DL Microbiology Date/Time Source Procedure Growth Status 07/01/17 12:09 Blood Peripheral Aerobic Blood Culture - Preliminary NO GROWTH IN 2 DAYS Resulted 07/01/17 12:09 Blood Peripheral Anaerobic Blood Culture - Preliminary NO GROWTH IN 2 DAYS Resulted 07/01/17 12:02 Blood Peripheral Aerobic Blood Culture - Preliminary NO GROWTH IN 2 DAYS Resulted 07/01/17 12:02 Blood Peripheral Anaerobic Blood Culture - Preliminary NO GROWTH IN 2 DAYS Resulted 07/02/17 13:30 Sputum Endotracheal Gram Stain - Final Resulted 07/02/17 13:30 Sputum Culture - Preliminary Gram Negative Erik Resulted Imaging Abdomen X-Ray 07/01/17 0800 Signed Impressions: Service Date/Time: Saturday, July 01, 2017 08:39 - CONCLUSION: Dilated small bowel concerning for some degree of ileus or obstruction. Arvind Iyer MD Chest X-Ray 07/01/17 0000 Signed Impressions: Service Date/Time: Saturday, July 01, 2017 08:28 - CONCLUSION: Bilateral areas of consolidation being worse on the right, these are mildly worse when compared to the prior exam. Arvind Iyer MD Chest X-Ray 06/30/17 0000 Signed Impressions: Service Date/Time: Friday, June 30, 2017 16:07 - CONCLUSION: Probable pulmonary edema with bilateral parenchymal infiltrates and new focal consolidation in the right hilar and infrahilar location not present previously. Domingo Pollack MD Abdomen X-Ray 06/29/17 0000 Signed Impressions: Service Date/Time: Thursday, June 29, 2017 10:21 - CONCLUSION: Persistent distended small and large bowel. Arvind Iyer MD Abdomen X-Ray 06/24/17 0600 Signed Impressions: Service Date/Time: Saturday, June 24, 2017 03:14 - CONCLUSION: Dilated transverse colon and no definite pneumatosis intestinalis or technique, however the patient's prior CT examination was suggestive of pneumatosis. Domingo Pollack MD Chest X-Ray 06/24/17 0000 Signed Impressions: Service Date/Time: Saturday, June 24, 2017 03:08 - CONCLUSION: Bibasilar atelectasis and/or infiltrate is seen. Domingo Pollack MD Chest X-Ray 06/23/17 0000 Signed Impressions: Service Date/Time: Friday, June 23, 2017 03:45 - CONCLUSION: No significant interval change Arvind Hernandez MD CT Angiography 06/23/17 0000 Signed Impressions: Service Date/Time: Friday, June 23, 2017 20:34 - CONCLUSION: 1. No evidence of pulmonary embolus. 2. Increased patchy bilateral pulmonary consolidation with mild thin-walled cavitation of focal consolidation in the right upper lobe. This finding could be related consolidation of an area of long with emphysema involvement. 3. Mild to moderate upper lobe pulmonary parenchymal emphysema is seen. Rosas Rowell MD Abdomen/Pelvis CT 06/23/17 Signed Impressions: Service Date/Time: Friday, June 23, 2017 20:34 - CONCLUSION: 1. Bowel wall pneumatosis involving the cecum and proximal transverse colon. Findings are suspicious for ischemic colitis. Surrounding inflammatory change in the intra-abdominal fat. No portal venous gas or free air identified. 2. Prominent bilateral lower lobe pulmonary consolidation. Rosas Rowell MD Abdomen X-Ray 06/23/17 Signed Impressions: Service Date/Time: Friday, June 23, 2017 03:51 - CONCLUSION: Diffuse mild gaseous distention of bowel Arvind Hernandez MD Chest X-Ray 06/23/17 Signed Impressions: Service Date/Time: Friday, June 23, 2017 03:45 - CONCLUSION: No significant interval change Arvind Hernandez MD Abdomen X-Ray 06/23/17 Signed Impressions: Service Date/Time: Friday, June 23, 2017 03:51 - CONCLUSION: Diffuse mild gaseous distention of bowel Arvind Hernandez MD Brain MRI 06/22/17 Signed Impressions: Service Date/Time: Thursday, June 22, 2017 12:10 - CONCLUSION: All ischemic changes, negative for acute ischemic event. Negative for parenchymal hemorrhage. Usman Pimentel MD FACR Abdomen/Pelvis CT 06/14/17 Signed Impressions: Service Date/Time: Wednesday, June 14, 2017 22:32 - CONCLUSION: 1. Increasing basilar lung consolidation since chest CT from June 04. 2. Mild ileus. No bowel obstruction, free air or free fluid. 3. Left hip replacement. Advanced osteoarthritis right hip. NG in stomach. Rectal tube present. Humphrey Weston MD Head CT 06/04/17 Signed Impressions: Service Date/Time: Sunday, June 04, 2017 18:46 - CONCLUSION: 1. No significant change compared to 06/03/17. 2. No acute infarct, acute hemorrhage , mass effect or extra-axial fluid collection. 3. Scattered old lacunar infarcts within the bilateral basal ganglia. 4. Mild periventricular and subcortical white matter small vessel ischemic changes bilaterally. 5. Old right posterior parietal infarct. 6. Chronic opacification of right mastoid air cells. Mckay Stone MD Chest CT 06/04/17 Signed Impressions: Service Date/Time: Sunday, June 04, 2017 18:49 - CONCLUSION: 1. Right mid lung field and posterior bibasilar patchiness consistent with probable areas of pneumonia and/or atelectasis. Clinical correlation is recommended. 2. Tiny bilateral pleural effusions. 3. Cardiomegaly and coronary artery calcifications. 4. Minimal scattered emphysematous changes bilaterally. Mckay Stone MD Physical Exam GENERAL: Sedated, on the vent, NAD. SKIN: Cool, dry. No generalized rash EYES: Pupils equal and round and reactive. Extraocular motions intact. No scleral icterus. No injection or drainage. NECK: trach in place , site ok CARDIOVASCULAR: Regular rate and rhythm without murmurs, gallops, or rubs. No JVD. Peripheral pulses symmetric. RESPIRATORY/CHEST: Coarse BS bilaterally GASTROINTESTINAL: Abdomen, less distended no tenderness, not guarding, BS hypoactive. GENITOURINARY: Without palpable bladder distension. condom catheter in place with clear yellow MUSCULOSKELETAL: Extremities without clubbing, cyanosis. (+) pedal edema. No calf tenderness. No mottling or clubbing. NEUROLOGICAL: moves all 4 extremities, awake, alert, follows commands PSYCHIATRIC: cooperative LINE: No evidence of infection Assessment & Plan Remarks IMPRESSION Mental status change, PNA, E.coli, S/P Rx Acute VDRF, failure to wean Multiple med problems Leukocytosis, better Abdominal distention, diarrhea - C.diff negative - likely ischemic colitis - CT better as far as pneumatosis C glabrata sepsis, S/P Rx New HCAP PNA (PSAE and E coli in sputum) PLAN Continue Zosyn to cover both PSAE and intraabd aerobic/anaerobic tamara Follow temps Follow repeat sputum G/S C/S Continue Micafungin - if BC negative and stable hemodynamically, joseph stop Follow C/S Monitor progress Weaning per CCM Karey Ayala MD Jul 03, 2017 11:11
[2017-07-03] MEDS: MICAFUNGIN INJ 100 MG in SODIUM CHLORIDE 0.9% INJ 100 ML IV SCH (11:31)
[2017-07-03] MEDS: FAMOTIDINE 20 MG/2 ML VIAL IV PUSH SCH ×2 (11:31→22:37)
--- NOTE | 2017-07-03 13:59 | HHI.GIFU ---
Subjective Remarks Intubated and sedated NG tube to low intermittent suction with increased amounts of dark bile drainage Negative C. difficile Tachypnea respirations Objective Vitals I&O Vital Signs Date Time Temp Pulse Resp B/P (MAP) Pulse Ox O2 Delivery O2 Flow Rate FiO2 07/03/17 12:43 98 40 07/03/17 12:00 97.8 60 28 140/77 (98) 98 07/03/17 12:00 60 07/03/17 10:00 59 07/03/17 08:00 58 07/03/17 08:00 97.5 58 31 123/65 (84) 96 07/03/17 07:49 97 50 07/03/17 06:00 61 07/03/17 04:18 99 60 07/03/17 04:00 98.7 59 30 108/63 (78) 99 07/03/17 04:00 59 07/03/17 04:00 60 07/03/17 02:00 60 07/03/17 00:59 100 60 07/03/17 00:00 60 07/03/17 00:00 98.9 61 32 128/68 (88) 98 07/03/17 00:00 61 07/02/17 22:00 65 07/02/17 21:36 98 60 07/02/17 20:00 60 07/02/17 20:00 98.5 63 34 110/62 (78) 98 07/02/17 20:00 63 07/02/17 18:00 59 07/02/17 17:00 100 60 07/02/17 16:00 59 07/02/17 16:00 98.5 61 33 119/64 (82) 100 07/02/17 16:00 60 07/02/17 14:00 59 I/O 07/02/17 07/02/17 07/02/17 07/03/17 07/03/17 07/03/17 07:00 15:00 23:00 07:00 15:00 23:00 Intake Total 800 ml 3150 ml 880 ml Output Total 2200 ml 1100 ml 1550 ml Balance -1400 ml 2050 ml -670 ml IV Total 800 ml 3050 ml 820 ml Other 100 ml 60 ml Output Urine Total 2200 ml 1100 ml 650 ml Stool Total 0 ml Gastric Drainage Total 900 ml # Bowel Movements 1 1 Laboratory Laboratory Tests Test 07/03/17 05:10 White Blood Count 8.7 Red Blood Count 2.84 Hemoglobin 8.4 Hematocrit 25.1 Mean Corpuscular Volume 88.3 Mean Corpuscular Hemoglobin 29.6 Mean Corpuscular Hemoglobin Concent 33.5 Red Cell Distribution Width 14.8 Platelet Count 274 Mean Platelet Volume 7.2 Date/Time Source Procedure Growth Status 07/01/17 12:09 Blood Peripheral Aerobic Blood Culture - Preliminary NO GROWTH IN 2 DAYS Resulted 07/01/17 12:09 Blood Peripheral Anaerobic Blood Culture - Preliminary NO GROWTH IN 2 DAYS Resulted 07/02/17 13:30 Sputum Endotracheal Gram Stain - Final Resulted 07/02/17 13:30 Sputum Culture - Preliminary Gram Negative Erik Resulted 06/10/17 12:45 Urine Catheterized Urine Urine Culture - Final NO GROWTH IN 48 HOURS. Complete Imaging Last Impressions Abdomen X-Ray 07/01/17 0800 Signed Impressions: Service Date/Time: Saturday, July 01, 2017 08:39 - CONCLUSION: Dilated small bowel concerning for some degree of ileus or obstruction. Arvind Iyer MD Chest X-Ray 07/01/17 0000 Signed Impressions: Service Date/Time: Saturday, July 01, 2017 08:28 - CONCLUSION: Bilateral areas of consolidation being worse on the right, these are mildly worse when compared to the prior exam. Arvind Iyer MD CT Angiography 07/01/17 0000 Signed Impressions: Service Date/Time: Saturday, July 01, 2017 23:54 - CONCLUSION: 1. Study limited by motion. 2. No pulmonary emboli. 3. Worsening consolidation within the right upper lobe. Infectious etiology suspected. 4. Small bilateral pleural effusions and associated passive atelectasis. This is new. 5. Emphysematous changes. 6. 6 mm left upper lobe pulmonary nodule. Yuri Isidro Jr., MD Abdomen/Pelvis CT 07/01/17 0000 Signed Impressions: Service Date/Time: Saturday, July 01, 2017 23:54 - CONCLUSION: 1. Breathing degraded study. 2. Dilatation of proximal jejunal loops which slowly taper. No obstructing mass or lesion. This could relate to a focal ileus. I cannot completely exclude a bowel obstruction. Small amount of free fluid. 3. Mild inflammatory change involving the mesentery adjacent to the ascending colon has improved somewhat. No pneumatosis involving the bowel observed. Yuri Isidro Jr., MD Brain MRI 06/22/17 0000 Signed Impressions: Service Date/Time: Thursday, June 22, 2017 12:10 - CONCLUSION: All ischemic changes, negative for acute ischemic event. Negative for parenchymal hemorrhage. Usman Pimentel MD FACR Head CT 06/04/17 0000 Signed Impressions: Service Date/Time: Sunday, June 04, 2017 18:46 - CONCLUSION: 1. No significant change compared to 06/03/17. 2. No acute infarct, acute hemorrhage , mass effect or extra-axial fluid collection. 3. Scattered old lacunar infarcts within the bilateral basal ganglia. 4. Mild periventricular and subcortical white matter small vessel ischemic changes bilaterally. 5. Old right posterior parietal infarct. 6. Chronic opacification of right mastoid air cells. Mckay Stone MD Chest CT 06/04/17 0000 Signed Impressions: Service Date/Time: Sunday, June 04, 2017 18:49 - CONCLUSION: 1. Right mid lung field and posterior bibasilar patchiness consistent with probable areas of pneumonia and/or atelectasis. Clinical correlation is recommended. 2. Tiny bilateral pleural effusions. 3. Cardiomegaly and coronary artery calcifications. 4. Minimal scattered emphysematous changes bilaterally. Mckay Stone MD Physical Exam HEENT: normocephalic; atraumatic; no jaundice. trach to vent CHEST: coarse on vent via trach, tachypnea respirations CARDIAC: Controlled heart rate ABDOMEN: Soft, mild distention; bowel sounds none PEG tube site clean and dry EXTREMITIES: No clubbing, cyanosis, or edema. SKIN: Normal; no rash; no jaundice. WRAPPER SIZER: nonverbal, eyes closed, on vent, not communicating today Assessment and Plan Plan ASSESSMENT: - ischemic colitis/ileus- This is 61-year-old male with a history of COPD, hypertension, hyperlipidemia, CVA, schizoaffective disorder, bipolar disorder, GERD, renal failure, and arthritis who presented to the emergency room on 2016 from a longterm facility for evaluation of altered mental status. He was found to have Pneumonia and developed respiratory failure. Abdominal soft. He under went EGD/PEG tube with our services on 06/17/17. Patient developed acute elevation on WBC, CT abdomen pelvis done on 06/23 revealed pneumatosis involving cecum and transverse colon suggesting ischemic colitis. Gen. surgery consulted and patient evaluated by Dr. Monroe today who recommends medical management at this time with IV fluids and continuation of antibiotics. Patient has not been tolerating tube feeds and currently TF on hold PEG tube to suction, green gastric out put noted in canister. Currently pt on mechanical ventilation via tracheostomy. Awake. Denies abdominal pain , No rectal bleeding or hematemesis reported. Abd X-ray on 06/26/17 No visible change in dilated loop of transverse colon. - Possible ischemic colitis, now appears to have ileus GERD, - Chronic respiratory failure- trach , less responsive today KUB still shows distended large and small bowel, ileus Anemia stable at 8.4, C. difficile negative 07/01/17- Abd X-ray today showed ileus possible obstruction, continues with increased amounts of dark bile to low to intermittent suction PEG PLAN: - NPO - Cont. PEG tube to low intermittent suction, Monitor labs - SBFT - Supportive care - Patient seen and examined by myself, note is written on his behalf. And reviewed per Dr. Mila Salter,Annmarie ALCALA Jul 03, 2017 13:59
[2017-07-03] MEDS: ERYTHROMYCIN IV SCH (14:59)
--- NOTE | 2017-07-03 17:45 | HHI.CCPN ---
Subjective Remarks/Hospital Course 06/04: Mr. Reilly is a 61-year-old male with a history of COPD, hypertension, hyperlipidemia, CVA, schizoaffective disorder, bipolar disorder, GERD, renal failure, and arthritis who presented to the emergency room on 06/03/2017 from a custodial facility for evaluation of altered mental status. Upon review of the medical records from the custodial facility, it is noted he had a right lower lobe pneumonia diagnosed mid May. Head CT showed no acute infarct, acute hemorrhage, mass effect, or extra-axial fluid collection but scattered old lacunar infarcts within the bilateral basal ganglia. Mild periventricular and subcortical white matter small vessel ischemic changes bilaterally. Chest x-ray shows scattered bibasilar patchiness consistent with possible pneumonia. Per documentation : While in the ER, patient was in moderate respiratory distress with tachypnea and utilization of accessory abdominal muscles to breathe. His lung sounds are bilaterally congested and he is confused and a poor historian. His speech is slightly slurred but this is not a new finding. He was noted to be on 5 L nasal cannula with oxygen saturation of 94% in the emergency room. Patient was admitted to the ICU by the hospitalist service. He was initiated on heparin drip for suspicion of PE. He was also noted to have an elevated CPK and creatinine. His blood pressures were running high overnight. This afternoon patient developed worsening agitation and disorientation and confusion. His heparin was stopped earlier by Dr. Garcia due to low suspicion for PE. Patient developed worsening respiration status with respirations in the 30s and O2 sats in the mid 80s. Critical care medicine was consulted. Patient was emergently intubated by Dr. Elvira Gutierrez and I subsequently took over patient care. When I evaluated the patient he had been sedated for the intubation and is being placed on mechanical ventilation. History was obtained by discussion with Dr. Garcia, Dr. Gutierrez and ICU nursing staff as well as documentation in the chart. 06/05: Remains sedated, orally intubated on mechanical ventilation. 06/06: Sedated, orally intubated on mechanical ventilation. Failed C Pap trial today. Got extremely anxious on lightening sedation. 06/07 No events overnight. Sedated and intubated. Afebrile. 06/08 No events overnight. Sedated with Diprivan, Fentanyl and intubated. 06/09 Patient remains sedated and intubated. Afebrile.Did not tolerate CPAP trials yesterday. 06/10 Patient is sedated with Fentanyl and Diprivan. Afebrile. Did not tolerate CPAP yesterday as he became restless, agitated and tachycardic. 06/11 Patient remains sedated and intubated. Spiked fever with Tmax 101.1 06/12 No events overnight. Sedated and intubated. Afebrile. 06/13 Patient remains intubated and sedated with Diprivan, fentanyl in addition he is on Precedex drip. T:100.0 06/14 Patient remains sedated and intubated. Afebrile. Did not tolerate CPAP trials yesterday as he became tahypenic, tachycardic and restless. 06/15: agitation persists. respiratory failure persists. severely volume overloaded. has been intubated for almost 2 weeks. may require trach. CT abd/ pelvis without overt acute disease. no other source for fungemia. 06/16: s/p trach yesterday. no significant changes. 06/17: plan for PEG today. agitation persists with significant delirium. no other significant changes. 06/18: s/p PEG placement. weaning off sedation. still failing cpap trials. 06/19: cannot wean off precedex: agitated delirium persists. also still failing cpap trials. 06/20 No events overnight. On Precedex drip for agitation. T: 100.1 last night. 06/21 No events overnight. Remains on Precedex drip. Afebrile. 06/22 Patient is sedated with Fentanyl and Precedex. Afebrile. For MRI brain today. 06/23 Patient became hypotensive overnight and had episode of desaturation with says in mid 80's. Given 500ml 5% Albumin now off sedation ( Fentanyl and Precedex held). BP is better. In addition he was given Dulcolax suppos. and Mg citrate now having BM's. KUB this morning showed diffuse mild gaseous distention of bowel. FIO2 requirements is better now on 50% FIO2 with PEEP: 10 from FIO2 75 % overnight. CXR unchanged ( Consolidation LLL and Atelectasis right lung base) . T:99.9 06/24: Remains on mechanical ventilation via tracheostomy. CT abdomen pelvis done on 06/23 revealed pneumatosis involving cecum and transverse colon suggesting ischemic colitis. Gen. surgery consulted and patient evaluated by Dr. Monroe today who recommends medical management at this time with IV fluids and continuation of antibiotics. Patient not tolerating tube feeds and has abdominal distention. Maintaining blood pressure currently. 06/25: Remains on mechanical ventilation via tracheostomy. Does not appear to be in any acute distress. Still nothing by mouth. Being followed by general surgery for pneumatosis involving cecum and transverse colon. 06/26: Remains on mechanical ventilation via tracheostomy. Awake. Denies abdominal pain this morning. Has bowel sounds. Abdominal less distended. 06/27: no improvements. afebrile. restarting tube feeds slowly. 06/28: tube feeds held overnight for high residuals. reglan iv started. tolerated t-piece yesterday for short period. 06/29: In bed, awake and alert. On mechanical ventilation via tracheostomy. Not tolerating tube feeds with high residuals from PEG tube on suction. 06/30: Awake and alert. Denies any abdominal pain. Bilious emesis overnight with about 2200 cc suctioned out via PEG tube in last 24 hours. Being scheduled for colonoscopy by GI 07/01: Became tachypneic this morning with respiratory rate in the 40s. O2 sats remained in the 90s. Had to resume sedation with Versed and patient was placed back on PRBC mode mechanical ventilation. Chest x-ray done this morning shows bibasilar infiltrates, no pneumothorax or atelectasis noted. Became hypotensive requiring Levophed 2 mics per minute. Still not tolerating tube feeds and PEG tube remains to suction. Started on PPN yesterday. PICC line placed yesterday. 07/02: No intervention per general surgery Dr. Monroe. No intervention per GI which has signed off. Instructed to possibly begin trickle feeds 07/03: Approximally 900 cc of bilious fluid from gastric contents in the last 12 hours overnight. During the day last 12 hours approximately 300 cc of bilious gastric output. Patient was started on erythromycin 200 mg every 6 hours. Plan for repeat KUB in am . Patient continues on TPN Objective Vital Signs Date Time Temp Pulse Resp B/P (MAP) Pulse Ox O2 Delivery O2 Flow Rate FiO2 07/03/17 16:00 97.8 70 35 113/64 (80) 100 07/03/17 15:14 40 07/02/17 09:30 Ventilator Intake and Output 07/03/17 07/03/17 07/04/17 08:00 16:00 00:00 Intake Total 880 ml Output Total 1550 ml Balance -670 ml Result Diagram: 07/03/17 0510 Imaging Last 48 hours Impressions Abdomen X-Ray 06/24/17 0600 Signed Impressions: Service Date/Time: Saturday, June 24, 2017 03:14 - CONCLUSION: Dilated transverse colon and no definite pneumatosis intestinalis or technique, however the patient's prior CT examination was suggestive of pneumatosis. Domingo Pollack MD Chest X-Ray 06/24/17 0000 Signed Impressions: Service Date/Time: Saturday, June 24, 2017 03:08 - CONCLUSION: Bibasilar atelectasis and/or infiltrate is seen. Domingo Pollack MD Chest X-Ray 06/23/17 0000 Signed Impressions: Service Date/Time: Friday, June 23, 2017 03:45 - CONCLUSION: No significant interval change Arvind Hernandez MD CT Angiography 06/23/17 0000 Signed Impressions: Service Date/Time: Friday, June 23, 2017 20:34 - CONCLUSION: 1. No evidence of pulmonary embolus. 2. Increased patchy bilateral pulmonary consolidation with mild thin-walled cavitation of focal consolidation in the right upper lobe. This finding could be related consolidation of an area of long with emphysema involvement. 3. Mild to moderate upper lobe pulmonary parenchymal emphysema is seen. Rosas Rowell MD Abdomen/Pelvis CT 06/23/17 0000 Signed Impressions: Service Date/Time: Friday, June 23, 2017 20:34 - CONCLUSION: 1. Bowel wall pneumatosis involving the cecum and proximal transverse colon. Findings are suspicious for ischemic colitis. Surrounding inflammatory change in the intra-abdominal fat. No portal venous gas or free air identified. 2. Prominent bilateral lower lobe pulmonary consolidation. Rosas Rowell MD Abdomen X-Ray 06/23/17 0000 Signed Impressions: Service Date/Time: Friday, June 23, 2017 03:51 - CONCLUSION: Diffuse mild gaseous distention of bowel Arvind Hernandez MD Last Impressions Chest X-Ray 06/23/17 0000 Signed Impressions: Service Date/Time: Friday, June 23, 2017 03:45 - CONCLUSION: No significant interval change Arvind Hernandez MD Abdomen X-Ray 06/23/17 0000 Signed Impressions: Service Date/Time: Friday, June 23, 2017 03:51 - CONCLUSION: Diffuse mild gaseous distention of bowel Arvind Hernandez MD Brain MRI 06/22/17 0000 Signed Impressions: Service Date/Time: Thursday, June 22, 2017 12:10 - CONCLUSION: All ischemic changes, negative for acute ischemic event. Negative for parenchymal hemorrhage. Usman Pimentel MD FACR Abdomen/Pelvis CT 06/14/17 0000 Signed Impressions: Service Date/Time: Wednesday, June 14, 2017 22:32 - CONCLUSION: 1. Increasing basilar lung consolidation since chest CT from June 04. 2. Mild ileus. No bowel obstruction, free air or free fluid. 3. Left hip replacement. Advanced osteoarthritis right hip. NG in stomach. Rectal tube present. Humphrey Weston MD Head CT 06/04/17 0000 Signed Impressions: Service Date/Time: Sunday, June 04, 2017 18:46 - CONCLUSION: 1. No significant change compared to 06/03/17. 2. No acute infarct, acute hemorrhage , mass effect or extra-axial fluid collection. 3. Scattered old lacunar infarcts within the bilateral basal ganglia. 4. Mild periventricular and subcortical white matter small vessel ischemic changes bilaterally. 5. Old right posterior parietal infarct. 6. Chronic opacification of right mastoid air cells. Mckay Stone MD Chest CT 06/04/17 0000 Signed Impressions: Service Date/Time: Sunday, June 04, 2017 18:49 - CONCLUSION: 1. Right mid lung field and posterior bibasilar patchiness consistent with probable areas of pneumonia and/or atelectasis. Clinical correlation is recommended. 2. Tiny bilateral pleural effusions. 3. Cardiomegaly and coronary artery calcifications. 4. Minimal scattered emphysematous changes bilaterally. Mckay Stone MD Objective Remarks GENERAL: Patient is 61 yo gentleman on ventilator via trach. SKIN: Warm and dry. HEAD: Normocephalic. EYES: No scleral icterus. No injection or drainage. NECK: trachea midline. No JVD. + Trach CARDIOVASCULAR: Regular rate and rhythm. RESPIRATORY: equal chest rise. 40% fio2. Clear to auscultation GASTROINTESTINAL: Abdomen soft, non-tender, minimally distended, bowel sounds present. MUSCULOSKELETAL: No cyanosis, or edema. Neuro: Off sedation, follows simple commands intermittently. A/P Assessment and Plan Assessment: 61yM with history of schizoaffective d/o and bipolar d/o who presented with acute hypoxic respiratory failure and now fungemia without overt source. Not improving on pathway. No meaningful improvements over last 2 weeks. s/p trach 06/15 and PEG 06/17. remains off pathway. needs long-term acute care level of rehabilitation. tube feed intolerance persists. has been without nutrition since 06/24. Started on PPN 06/30 Plan: Neuro: Acute Metabolic Encephalopathy Agitated Delirium - improving. Schizoaffective disorder/bipolar disorder History of alcohol abuse History of CVA Monitor neuro status. Resumed sedation with Versed gtt on 07/01 MRI brain 06/22: No acute ischemic events, no hemorrhage On Lactulose level 30ml TID, Ammonia level slightly elevated 42. EEG showed mod. encephalopathy Neuro is following. Dr. Rosibel Cheatham 10mg IM q12h prn for agitation PO meds on hold. CV: Uncontrolled hypertension - resolved. hyperlipidemia Monitor HR and BP keep MAP>65mmHg Hold antihypertensive meds ( Norvasc 5mg daily, clonidine 0.3mg po q8h, Lopressor 50mg Q12) 2-D echo with normal LV/RV function Pulmo: Acute respiratory failure requiring mechanical ventilation - persistent. COPD exacerbation Resolving community acquired pneumonia Intubated and placed on mechanical ventilation on 06/04. Continue with vent support keep sat >92%. Vent bundle, bronchodilators, on prednisone taper. On PRVC CTA chest negative for PE. trach 06/[address] Sapp/Alexander continue daily SBTs. t-piece trials if tolerated. Continue CPAP trials GI/liver: GERD Acute protein calorie malnutrition- severe 06/23 KUB abdomen: Mild gaseous distention of bowel Ct abd/pelvis 06/23: Pneumatosis involving cecum and transverse colon concerning for ischemia. C. Diff negative hold bowel regimen. Surgery following patient for ischemic colitis- no surgical intervention recommended at this time and they have signed off. I discussed case with Dr. Anival Madden covering for Dr. Monroe on 06/30 as patient continues to have ileus with bilious output from PEG tube and not tolerating tube feeds. hold tube feeds, keep reglan iv. restart tube feeds 06/29 after 24h of reglan. having regular bowel movements. passing flatus. Consulted GI and view of ileus for evaluation of ileus and ischemic colitis. They're planning colonoscopy for further evaluation. Started PPN on 06/30 as unable to tolerate PEG tube feeds. PICC line placed and was switched to TPN on 07/01 KUB done on 06/29 with dilated small and large bowel loops. 07/02: Discussed with Dr. Caraballo requested to restart tube feeds. Neurosurgery has signed off Follow-up KUB in a.m. Erythromycin 200 mg every 6 hours IV started , patient continues on metoclopramide Renal/: ROSENDO/ CKD - resolved. Rhabdomyolysis - resolved. Acute intravascular volume overload- resolved. Metabolic alkalosis- resolving. Monitor renal function, electrolytes replacement per protocol. saline lock ivf. l ID: Fungemia- resolved. Community Acquired Pneumonia- resolved. Ischemic colitis Sepsis [facility] Associated pneumonia with pseudomonas/e.coli completed full 14 day course of micagunfin for fungemia. Continue Zosyn. Micafungin added per ID CT abdomen pelvis on 06/23 shows pneumatosis involving cecum and transverse colon consistent with ischemic colitis. Patient evaluated by general surgery Dr. Monroe who at this time recommends continuing IV fluids and antibiotics and he will be available for surgery if patient develops evidence of peritonitis or worsens clinically. ID is following Sputum cx: E.coli on 06/04, sputum 06/10: normal resp tamara BC 06/14, 06/19 : NGTD, Sputum cx 06/21: E.coli, Pseudomonas Endocrine: Hyperglycemia of critical illness SSI medium scale, q4h Heme: Anemia secondary to chronic disease Monitor CBC. Prophylaxis: Pepcid/SCDs. SQ Lovenox Lines: Right sided PICC line placed 06/30 Discussed with MATERIAL ANALYST, discussed with Dr. Monroe my billing statement This patient remains critically ill with one or more organ systems which are or may become a threat to life. I have spent in excess of 37 minutes discontinuously in the care and management of this patient. This time is exclusive of procedures, and includes, but is not limited to, evaluation of the patient, review of the medical record, discussions with family, consultants, nursing staff, or respiratory therapy, and documentation in the medical record. Physician Elvira Null MD Jul 03, 2017 17:45
--- NOTE | 2017-07-03 18:49 | HHI.PR ---
Subjective Remarks 61 YOWM with VDRF,Trach,COPD AC 14, Fi02 60% Sedated with Diprivan and Precedex No Fever Gets agitated and starts belly breathing 900 cc billary drainage from gastric tube Objective Vital Signs Vital Signs Date Time Temp Pulse Resp B/P (MAP) Pulse Ox O2 Delivery O2 Flow Rate FiO2 07/03/17 16:00 97.8 70 35 113/64 (80) 100 07/03/17 15:14 99 40 07/03/17 14:00 63 07/03/17 12:43 98 40 07/03/17 12:00 97.8 60 28 140/77 (98) 98 07/03/17 12:00 60 07/03/17 10:00 59 07/03/17 08:00 58 07/03/17 08:00 97.5 58 31 123/65 (84) 96 07/03/17 07:49 97 50 07/03/17 06:00 61 07/03/17 04:18 99 60 07/03/17 04:00 98.7 59 30 108/63 (78) 99 07/03/17 04:00 59 07/03/17 04:00 60 07/03/17 02:00 60 07/03/17 00:59 100 60 07/03/17 00:00 60 07/03/17 00:00 98.9 61 32 128/68 (88) 98 07/03/17 00:00 61 07/02/17 22:00 65 07/02/17 21:36 98 60 07/02/17 20:00 60 07/02/17 20:00 98.5 63 34 110/62 (78) 98 07/02/17 20:00 63 I/O 07/02/17 07/02/17 07/02/17 07/03/17 07/03/17 07/03/17 07:00 15:00 23:00 07:00 15:00 23:00 Intake Total 800 ml 3150 ml 880 ml Output Total 2200 ml 1100 ml 1550 ml Balance -1400 ml 2050 ml -670 ml IV Total 800 ml 3050 ml 820 ml Other 100 ml 60 ml Output Urine Total 2200 ml 1100 ml 650 ml Stool Total 0 ml Gastric Drainage Total 900 ml # Bowel Movements 1 1 Result Diagram: 07/03/17 0510 Objective Remarks GENERAL: MBMN WM, on Vent, sedated SKIN: Warm and dry. HEAD: Normocephalic. EYES: No scleral icterus. No injection or drainage. NECK: Supple, trachea midline. No JVD or lymphadenopathy. CARDIOVASCULAR: Regular rate and rhythm without murmurs, gallops, or rubs. RESPIRATORY: Breath sounds equal bilaterally. No accessory muscle use. GASTROINTESTINAL: Abdomen soft, non-tender, nondistended. MUSCULOSKELETAL: No cyanosis, or edema. BACK: Nontender without obvious deformity. No CVA tenderness. A/P Assessment and Plan VDRF S/P Trach COPD COPD Schzoaffective disorder Bipolar disorder PLAN: Vent support Cont Abx Sedation with Precedex and Versed DW Syed Erickson MD Jul 03, 2017 18:49
[2017-07-03] MEDS: LORazepam 2 MG/ML VIAL IV PRN (18:51)
[2017-07-03] MEDS: HALOPERIDOL LACTATE 5 MG/ML AMP IV PUSH PRN (19:14)
--- NOTE | 2017-07-03 19:46 | RADRPT ---
EXAM DATE/TIME: 07/03/2017 19:23 [facility] COMPARISON: CHEST SINGLE AP, July 01, 2017, 8:28. INDICATIONS : Shortness of breath. MEDICAL HISTORY : Cardiovascular disease. Hypertension. Cirrhosis.Hep C, CVA. SURGICAL HISTORY : None. ENCOUNTER: Subsequent ACUITY: 2 weeks PAIN SCORE: 0/10 LOCATION: Bilateral chest FINDINGS: Left basilar opacity is present may be due to a combination of consolidation and or pleural effusion. There is slight improvement in aeration of right lung base. Mild pulmonary edema remains. CONCLUSION: Slight improvement in aeration of right lung base otherwise not significantly changed. Domingo Pollack MD on July 03, 2017 at 19:43 Board Certified Radiologist. This report was verified electronically.
[2017-07-03] MEDS ORDERED: DEXMEDETOMIDINE INJ 200 MCG in SODIUM CHLORIDE 0.9% INJ 50 ML IV PRN (21:15)
[2017-07-03] MEDS: CLINIMIX E 5/25 2000 mL- >42 mls/hr IV-CENTRAL SCH ×3 (22:44)
[2017-07-03] MEDS: FAT EMULSION 20% INJ 250 ML (Daily over 8 hours) IV-CENTRAL SCH (22:44)
[2017-07-04] VITALS (19 sets, daily range): BP systolic 98–120; BP diastolic 56–76; PULSE 57–100; RESP 27–48; TEMP 97.8–98.6; O2SAT 96–100
[2017-07-04] MEDS: ERYTHROMYCIN IV SCH ×5 (01:00→19:59)
[2017-07-04] MEDS: PIPERACIL-TAZO 4.5 GM PREMIX 100 ML IV SCH ×4 (01:00→20:00)
[2017-07-04] MEDS: CHLORHEXIDINE GLUCONATE 2 % 1 PACK (2 CLOTHS) TOP SCH (01:04)
[2017-07-04] MEDS: LORazepam 2 MG/ML VIAL IV PRN ×2 (02:32→14:23)
[2017-07-04] MEDS: HALOPERIDOL LACTATE 5 MG/ML AMP IV PUSH PRN ×2 (02:32→14:23)
[2017-07-04] MEDS: MIDAZOLAM 100 MG/NS 100 ML DRIP Premix IV PRN ×2 (02:36→14:25)
[2017-07-04] MEDS: INSULIN NovoLIN REGULAR SUPPLEMENTAL SCALE SQ SCH ×6 (03:30→23:46)
[2017-07-04] MEDS: RESP: ALBUTEROL 2.5 MG/IPRATROPIUM 0.5 MG NEB (SCH) NEB ×4 (04:03→20:26)
--- NOTE | 2017-07-04 04:21 | RADRPT ---
EXAM DATE/TIME: 07/04/2017 03:32 [facility] COMPARISON: CHEST SINGLE AP, July 03, 2017, 19:23. INDICATIONS : Shortness of breath, possible pulmonary disease. MEDICAL HISTORY : Cardiovascular disease. Hypertension Cirrhosis. Hep C CVA SURGICAL HISTORY : None. ENCOUNTER: Subsequent ACUITY: 2 weeks PAIN SCORE: Non-responsive. LOCATION: Bilateral chest FINDINGS: Portable frontal view of the chest shows bibasilar infiltrates are present in the left or greater deg ree than the right. These are unchanged. No discrete effusions. Heart is normal in size. Tracheostomy tube and right-sided PICC line noted. CONCLUSION: Unchanged bibasilar infiltrates. Yuri Isidro Jr., MD on July 04, 2017 at 4:18 Board Certified Radiologist. This report was verified electronically.
--- NOTE | 2017-07-04 04:22 | RADRPT ---
EXAM DATE/TIME: 07/04/2017 03:35 [facility] COMPARISON: ABDOMEN KUB ONLY, July 01, 2017, 8:39. INDICATIONS : Abdominal distention. MEDICAL HISTORY : Cardiovascular disease. Hypertension Cirrhosis. Hep C CVA SURGICAL HISTORY : None. ENCOUNTER: Subsequent ACUITY: 2 weeks PAIN SCORE: Non-responsive. LOCATION: Bilateral chest FINDINGS: 2 frontal supine views of the abdomen are limited by the patient's body habitus. Dilated gas filled s mall bowel noted with a gas filled nondistended colon. The volume of air has decreased from the prior study. Gastrostomy tube noted. Left hip prosthesis. Advanced osteoarthritis of the right hip includi ng erosive changes. CONCLUSION: Dilated small bowel has improved slightly from the prior study. Yuri Isidro Jr., MD on July 04, 2017 at 4:19 Board Certified Radiologist. This report was verified electronically.
[2017-07-04] MEDS: METOCLOPRAMIDE HCL 10 MG/2 ML VIAL IV PUSH SCH ×3 (04:34→22:44)
[2017-07-04 05:46] LABS: BASOPHIL % 0.6 % (0.0-2.0); EOSINOPHIL # 0.2 TH/MM3 (0-0.4); HEMATOCRIT 23.2 % (39.0-51.0); HEMOGLOBIN 7.8 GM/DL (13.0-17.0); LYMPH % 15.1 % (9.0-44.0); LYMPHOCYTE # 1.2 TH/MM3 (1.0-4.8); MEAN CELL VOLUME 88.2 FL (80.0-100.0); MEAN CORPUSCULAR HEMOGLOBIN 29.8 PG (27.0-34.0); MEAN CORPUSCULAR HGB CONC 33.8 % (32.0-36.0); MEAN PLATELET VOLUME 7.4 FL (7.0-11.0); MONO % 8.9 % (0.0-8.0); MONOCYTE # 0.7 TH/MM3 (0-0.9); NEUT % 72.4 % (16.0-70.0); PLATELET COUNT 285 TH/MM3 (150-450); RED BLOOD COUNT 2.63 MIL/MM3 (4.50-5.90); RED CELL DISTRIBUTION WIDTH 14.9 % (11.6-17.2); WHITE BLOOD COUNT 8.3 TH/MM3 (4.0-11.0)
[2017-07-04 06:08] LABS: CALCIUM 7.6 MG/DL (8.5-10.1); CREATININE 0.65 MG/DL (0.60-1.30)
[2017-07-04 06:59] LABS: BANDS 7 % (0-6); LYMPHOCYTES 6 % (9-44); METAMYELOCYTES 2 % (0-1); MONOCYTES 5 % (0-8); MYELOCYTES 3 % (0-0); NEUTROPHIL # MANUAL DIFF 7.1 TH/MM3 (1.8-7.7); POLYS (SEG NEUTROPHILS) 71 % (16-70); PROMYELOCYTES 2 % (0-0)
[2017-07-04] MEDS: SODIUM CHLORIDE 0.9% FLUSH 10 ML FLUSH IV FLUSH SCH ×3 (07:56→21:14)
[2017-07-04] MEDS: SENNOSIDES SYRUP 8.8 MG/5 ML CUP PO SCH (07:56)
[2017-07-04] MEDS: guanFACINE HCL 1 MG TAB PO SCH ×2 (07:56→21:14)
[2017-07-04] MEDS: NUTRISOURCE FIBER POWDER 1 PACK G-TUBE SCH ×2 (07:57→21:00)
[2017-07-04] MEDS: CHLORHEXIDINE 0.12% (ORAL KIT) 15 ML CUP MT SCH ×2 (07:57→20:01)
[2017-07-04] MEDS: DEXMEDETOMIDINE INJ 1,000 MCG in SODIUM CHLOR 0.9% 250 ML INJ 240 ML IV PRN (09:14)
[2017-07-04] MEDS: FAMOTIDINE 20 MG/2 ML VIAL IV PUSH SCH ×2 (11:09→22:45)
[2017-07-04] MEDS: MICAFUNGIN INJ 100 MG in SODIUM CHLORIDE 0.9% INJ 100 ML IV SCH (11:09)
--- NOTE | 2017-07-04 14:26 | HHI.GIFU ---
Subjective Remarks Gastric drainage much more controlled today, less than 200 cc in low intermittent suction canister. Yesterday patient had approximately 900 Bowel sounds are soft, ileus seems to be resolving, abdominal x-ray done this a.m. Stools appear brown, but patient's hemoglobin continues to decline from 8.4-7.8 Discussed trickle feeds to start in the morning Objective Vitals I&O Vital Signs Date Time Temp Pulse Resp B/P (MAP) Pulse Ox O2 Delivery O2 Flow Rate FiO2 07/04/17 12:00 97.8 57 27 120/62 (81) 100 07/04/17 11:48 50 07/04/17 11:48 100 50 07/04/17 10:00 64 07/04/17 09:08 98 50 07/04/17 08:15 63 07/04/17 08:00 60 07/04/17 08:00 98.5 66 39 98/56 (70) 97 07/04/17 06:00 71 07/04/17 04:03 99 60 07/04/17 04:00 98.6 73 48 117/63 (81) 96 07/04/17 04:00 73 07/04/17 04:00 60 07/04/17 02:00 93 07/04/17 00:29 100 60 07/04/17 00:00 60 07/04/17 00:00 100 07/04/17 00:00 98.3 100 40 112/76 (88) 100 07/03/17 22:00 121 07/03/17 20:49 100 60 07/03/17 20:00 108 07/03/17 20:00 60 07/03/17 20:00 98.1 108 38 115/77 (90) 100 07/03/17 18:00 90 07/03/17 16:00 69 07/03/17 16:00 40 07/03/17 16:00 97.8 70 35 113/64 (80) 100 07/03/17 15:14 99 40 I/O 07/03/17 07/03/17 07/03/17 07/04/17 07/04/17 07/04/17 07:00 15:00 23:00 07:00 15:00 23:00 Intake Total 880 ml 200 ml 3740 ml 320 ml Output Total 1550 ml 1600 ml 800 ml Balance -670 ml 200 ml 2140 ml -480 ml IV Total 820 ml 200 ml 3740 ml 320 ml Other 60 ml Output Urine Total 650 ml 1200 ml 600 ml Gastric Drainage Total 900 ml 400 ml 200 ml # Bowel Movements 1 1 Laboratory Laboratory Tests Test 07/04/17 04:45 White Blood Count 8.3 Red Blood Count 2.63 Hemoglobin 7.8 Hematocrit 23.2 Mean Corpuscular Volume 88.2 Mean Corpuscular Hemoglobin 29.8 Mean Corpuscular Hemoglobin Concent 33.8 Red Cell Distribution Width 14.9 Platelet Count 285 Mean Platelet Volume 7.4 Neutrophils (%) (Auto) 72.4 Lymphocytes (%) (Auto) 15.1 Monocytes (%) (Auto) 8.9 Eosinophils (%) (Auto) 3.0 Basophils (%) (Auto) 0.6 Neutrophils # (Auto) 6.0 Lymphocytes # (Auto) 1.2 Monocytes # (Auto) 0.7 Eosinophils # (Auto) 0.2 Basophils # (Auto) 0.0 CBC Comment AUTO DIFF Differential Total Cells Counted 100 Neutrophils % (Manual) 71 Band Neutrophils % 7 Lymphocytes % 6 Monocytes % 5 Eosinophils % 4 Neutrophils # (Manual) 7.1 Metamyelocytes 2 Myelocytes 3 Promyelocytes 2 Differential Comment FINAL DIFF MANUAL Platelet Estimate NORMAL Platelet Morphology Comment NORMAL Red Cell Morphology Comment NORMAL Blood Gas Puncture Site RT RADIAL Blood Gas Patient Temperature 98.6 Blood Gas HCO3 19 Blood Gas Base Excess -4.1 Blood Gas Oxygen Saturation 97 Arterial Blood pH 7.45 Arterial Blood Partial Pressure CO2 28 Arterial Blood Partial Pressure O2 149 Arterial Blood Oxygen Content 13.7 Arterial Blood Carboxyhemoglobin 0.7 Arterial Blood Methemoglobin 1.2 Blood Gas Hemoglobin 9.8 Oxygen Delivery Device VENTILATOR Blood Gas Ventilator Setting PRVC/AC Blood Gas Inspired Oxygen 60 Blood Urea Nitrogen 12 Creatinine 0.65 Random Glucose 317 Calcium Level 7.6 Sodium Level 134 Potassium Level 3.6 Chloride Level 103 Carbon Dioxide Level 21.0 Anion Gap 10 Estimat Glomerular Filtration Rate 125 Date/Time Source Procedure Growth Status 07/01/17 12:09 Blood Peripheral Aerobic Blood Culture - Preliminary NO GROWTH IN 3 DAYS Resulted 07/01/17 12:09 Blood Peripheral Anaerobic Blood Culture - Preliminary NO GROWTH IN 3 DAYS Resulted 07/02/17 13:30 Sputum Endotracheal Gram Stain - Final Resulted 07/02/17 13:30 Sputum Culture - Preliminary Pseudomonas Aeruginosa Gram Negative Erik Resulted 06/10/17 12:45 Urine Catheterized Urine Urine Culture - Final NO GROWTH IN 48 HOURS. Complete Imaging Last Impressions Chest X-Ray 07/04/17 0600 Signed Impressions: Service Date/Time: July 03:32 - CONCLUSION: Unchanged bibasilar infiltrates. Yuri Isidro Jr., MD Abdomen X-Ray 07/04/17 0600 Signed Impressions: Service Date/Time: July 03:35 - CONCLUSION: Dilated small bowel has improved slightly from the prior study. Yuri Isidro Jr., MD CT Angiography 07/01/17 0000 Signed Impressions: Service Date/Time: Saturday, July 01, 2017 23:54 - CONCLUSION: 1. Study limited by motion. 2. No pulmonary emboli. 3. Worsening consolidation within the right upper lobe. Infectious etiology suspected. 4. Small bilateral pleural effusions and associated passive atelectasis. This is new. 5. Emphysematous changes. 6. 6 mm left upper lobe pulmonary nodule. Yuri Isidro Jr., MD Abdomen/Pelvis CT 07/01/17 0000 Signed Impressions: Service Date/Time: Saturday, July 01, 2017 23:54 - CONCLUSION: 1. Breathing degraded study. 2. Dilatation of proximal jejunal loops which slowly taper. No obstructing mass or lesion. This could relate to a focal ileus. I cannot completely exclude a bowel obstruction. Small amount of free fluid. 3. Mild inflammatory change involving the mesentery adjacent to the ascending colon has improved somewhat. No pneumatosis involving the bowel observed. Yuri Isidro Jr., MD Brain MRI 06/22/17 0000 Signed Impressions: Service Date/Time: Thursday, June 22, 2017 12:10 - CONCLUSION: All ischemic changes, negative for acute ischemic event. Negative for parenchymal hemorrhage. Usman Pimentel MD FACR Head CT 06/04/17 0000 Signed Impressions: Service Date/Time: Sunday, June 04, 2017 18:46 - CONCLUSION: 1. No significant change compared to 06/03/17. 2. No acute infarct, acute hemorrhage , mass effect or extra-axial fluid collection. 3. Scattered old lacunar infarcts within the bilateral basal ganglia. 4. Mild periventricular and subcortical white matter small vessel ischemic changes bilaterally. 5. Old right posterior parietal infarct. 6. Chronic opacification of right mastoid air cells. Mckay Stone MD Chest CT 06/04/17 0000 Signed Impressions: Service Date/Time: Sunday, June 04, 2017 18:49 - CONCLUSION: 1. Right mid lung field and posterior bibasilar patchiness consistent with probable areas of pneumonia and/or atelectasis. Clinical correlation is recommended. 2. Tiny bilateral pleural effusions. 3. Cardiomegaly and coronary artery calcifications. 4. Minimal scattered emphysematous changes bilaterally. Mckay Stone MD Physical Exam HEENT: normocephalic; atraumatic; no jaundice. trach to vent , pale CHEST: coarse on vent via trach, tachypnea respirations CARDIAC: Controlled heart rate ABDOMEN: Soft, mild distention; bowel sounds soft PEG tube site clean and dry , low intermittent suction EXTREMITIES: No clubbing, cyanosis, or edema. SKIN: Normal; no rash; pale [employer]: nonverbal, eyes closed, on vent, not communicating today Assessment and Plan Plan ASSESSMENT: - ischemic colitis/ileus- This is 61-year-old male with a history of COPD, hypertension, hyperlipidemia, CVA, schizoaffective disorder, bipolar disorder, GERD, renal failure, and arthritis who [facility] evaluation of altered mental status. He was found to have Pneumonia and developed respiratory failure. Abdominal soft. He under went EGD/PEG tube with our services on 06/17/17. Patient developed acute elevation on WBC, CT abdomen pelvis done on 06/23 revealed pneumatosis involving cecum and transverse colon suggesting ischemic colitis. Gen. surgery consulted and patient evaluated by Dr. Monroe today who recommends medical management at this time with IV fluids and continuation of antibiotics. Patient has not been tolerating tube feeds and currently TF on hold PEG tube to suction, green gastric out put noted in canister. Currently pt on mechanical ventilation via tracheostomy. Awake. Denies abdominal pain , No rectal bleeding or hematemesis reported. Abd X-ray on 06/26/17 No visible change in dilated loop of transverse colon. - Possible ischemic colitis, now appears to have ileus GERD, - Chronic respiratory failure- trach , less responsive today Abdominal x-ray today shows some resolving of patient's ileus, patient now has soft bowel sounds. Gastric tube clamped, but plan to unclamp today. Anemia stable at 8.4, C. difficile negative 07/01/17- Abd X-ray today showed ileus possible obstruction, continues with increased amounts of dark bile to low to intermittent suction PEG, patient was started yesterday on erythromycin which seems to have controlled bilious drainage Patient is very critical ill PLAN: - NPO - Clamp PEG tube removed from low intermittent suction. If patient has no high residuals, will start trickle feeds again in the a.m. 10 cc an hour. Monitor for any abdominal distention and may reconnect to suction if greater than 200 cc residual - Hemoccult stool X 2 , stools looked brown but hemoglobin continues to decline - Recheck labs in the morning - Monitor for any acute bleed - Supportive care If patient is stable over the weekend we'll consider EGD/colonoscopy for the first of the week. CARI Gonzalez with GI is working this weekend and will be rounding on patient Discuss plan of care with Dr. Gutierrez denial management representative - Patient seen and examined by myself, note is written on his behalf. And reviewed per Annmarie Yadav Jul 04, 2017 14:26
--- NOTE | 2017-07-04 15:23 | HHI.CCPN ---
Subjective Remarks/Hospital Course 06/04: Mr. Reilly is a 61-year-old male with a history of COPD, hypertension, hyperlipidemia, CVA, schizoaffective disorder, bipolar disorder, GERD, renal failure, and arthritis who presented to the emergency room on 06/03/2017 from a custodial facility for evaluation of altered mental status. Upon review of the medical records from the custodial facility, it is noted he had a right lower lobe pneumonia diagnosed mid May. Head CT showed no acute infarct, acute hemorrhage, mass effect, or extra-axial fluid collection but scattered old lacunar infarcts within the bilateral basal ganglia. Mild periventricular and subcortical white matter small vessel ischemic changes bilaterally. Chest x-ray shows scattered bibasilar patchiness consistent with possible pneumonia. Per documentation : While in the ER, patient was in moderate respiratory distress with tachypnea and utilization of accessory abdominal muscles to breathe. His lung sounds are bilaterally congested and he is confused and a poor historian. His speech is slightly slurred but this is not a new finding. He was noted to be on 5 L nasal cannula with oxygen saturation of 94% in the emergency room. Patient was admitted to the ICU by the hospitalist service. He was initiated on heparin drip for suspicion of PE. He was also noted to have an elevated CPK and creatinine. His blood pressures were running high overnight. This afternoon patient developed worsening agitation and disorientation and confusion. His heparin was stopped earlier by Dr. Garcia due to low suspicion for PE. Patient developed worsening respiration status with respirations in the 30s and O2 sats in the mid 80s. Critical care medicine was consulted. Patient was emergently intubated by Dr. Elvira Gutierrez and I subsequently took over patient care. When I evaluated the patient he had been sedated for the intubation and is being placed on mechanical ventilation. History was obtained by discussion with Dr. Garcia, Dr. Gutierrez and ICU nursing staff as well as documentation in the chart. 06/05: Remains sedated, orally intubated on mechanical ventilation. 06/06: Sedated, orally intubated on mechanical ventilation. Failed C Pap trial today. Got extremely anxious on lightening sedation. 06/07 No events overnight. Sedated and intubated. Afebrile. 06/08 No events overnight. Sedated with Diprivan, Fentanyl and intubated. 06/09 Patient remains sedated and intubated. Afebrile.Did not tolerate CPAP trials yesterday. 06/10 Patient is sedated with Fentanyl and Diprivan. Afebrile. Did not tolerate CPAP yesterday as he became restless, agitated and tachycardic. 06/11 Patient remains sedated and intubated. Spiked fever with Tmax 101.1 06/12 No events overnight. Sedated and intubated. Afebrile. 06/13 Patient remains intubated and sedated with Diprivan, fentanyl in addition he is on Precedex drip. T:100.0 06/14 Patient remains sedated and intubated. Afebrile. Did not tolerate CPAP trials yesterday as he became tahypenic, tachycardic and restless. 06/15: agitation persists. respiratory failure persists. severely volume overloaded. has been intubated for almost 2 weeks. may require trach. CT abd/ pelvis without overt acute disease. no other source for fungemia. 06/16: s/p trach yesterday. no significant changes. 06/17: plan for PEG today. agitation persists with significant delirium. no other significant changes. 06/18: s/p PEG placement. weaning off sedation. still failing cpap trials. 06/19: cannot wean off precedex: agitated delirium persists. also still failing cpap trials. 06/20 No events overnight. On Precedex drip for agitation. T: 100.1 last night. 06/21 No events overnight. Remains on Precedex drip. Afebrile. 06/22 Patient is sedated with Fentanyl and Precedex. Afebrile. For MRI brain today. 06/23 Patient became hypotensive overnight and had episode of desaturation with says in mid 80's. Given 500ml 5% Albumin now off sedation ( Fentanyl and Precedex held). BP is better. In addition he was given Dulcolax suppos. and Mg citrate now having BM's. KUB this morning showed diffuse mild gaseous distention of bowel. FIO2 requirements is better now on 50% FIO2 with PEEP: 10 from FIO2 75 % overnight. CXR unchanged ( Consolidation LLL and Atelectasis right lung base) . T:99.9 06/24: Remains on mechanical ventilation via tracheostomy. CT abdomen pelvis done on 06/23 revealed pneumatosis involving cecum and transverse colon suggesting ischemic colitis. Gen. surgery consulted and patient evaluated by Dr. Monroe today who recommends medical management at this time with IV fluids and continuation of antibiotics. Patient not tolerating tube feeds and has abdominal distention. Maintaining blood pressure currently. 06/25: Remains on mechanical ventilation via tracheostomy. Does not appear to be in any acute distress. Still nothing by mouth. Being followed by general surgery for pneumatosis involving cecum and transverse colon. 06/26: Remains on mechanical ventilation via tracheostomy. Awake. Denies abdominal pain this morning. Has bowel sounds. Abdominal less distended. 06/27: no improvements. afebrile. restarting tube feeds slowly. 06/28: tube feeds held overnight for high residuals. reglan iv started. tolerated t-piece yesterday for short period. 06/29: In bed, awake and alert. On mechanical ventilation via tracheostomy. Not tolerating tube feeds with high residuals from PEG tube on suction. 06/30: Awake and alert. Denies any abdominal pain. Bilious emesis overnight with about 2200 cc suctioned out via PEG tube in last 24 hours. Being scheduled for colonoscopy by GI 07/01: Became tachypneic this morning with respiratory rate in the 40s. O2 sats remained in the 90s. Had to resume sedation with Versed and patient was placed back on PRBC mode mechanical ventilation. Chest x-ray done this morning shows bibasilar infiltrates, no pneumothorax or atelectasis noted. Became hypotensive requiring Levophed 2 mics per minute. Still not tolerating tube feeds and PEG tube remains to suction. Started on PPN yesterday. PICC line placed yesterday. 07/02: No intervention per general surgery Dr. Monroe. No intervention per GI which has signed off. Instructed to possibly begin trickle feeds 07/03: Approximally 900 cc of bilious fluid from gastric contents in the last 12 hours overnight. During the day last 12 hours approximately 300 cc of bilious gastric output. Patient was started on erythromycin 200 mg every 6 hours. Plan for repeat KUB in am . Patient continues on TPN 07/04: Last 24 hours, gastric output significantly decreased. GI plans for clamping of the G-tube today with initiation of trickle feeds in a.m..Plan for possibly performing endoscopy early next week under general anesthesia/ in the OR. Patient continues to have stool output. KUB slightly shows slight improvement in small bowel dilatation. Objective Vital Signs Date Time Temp Pulse Resp B/P (MAP) Pulse Ox O2 Delivery O2 Flow Rate FiO2 07/04/17 12:00 97.8 57 27 120/62 (81) 100 07/04/17 11:48 50 07/02/17 09:30 Ventilator Intake and Output 07/04/17 07/04/17 07/05/17 08:00 16:00 00:00 Intake Total 320 ml Output Total 800 ml Balance -480 ml Result Diagram: 07/04/17 0445 07/04/17 0445 Other Results Laboratory Tests Test 07/04/17 04:45 Blood Gas Puncture Site RT RADIAL Blood Gas Patient Temperature 98.6 Blood Gas HCO3 19 mmol/L (22-26) Blood Gas Base Excess -4.1 mmol/L (-2-2) Blood Gas Oxygen Saturation 97 % (90-100) Arterial Blood pH 7.45 (7.380-7.420) Arterial Blood Partial Pressure CO2 28 mmHg (38-42) Arterial Blood Partial Pressure O2 149 mmHg (61-120) Arterial Blood Oxygen Content 13.7 Vol % (12.0-20.0) Arterial Blood Carboxyhemoglobin 0.7 % (0-4) Arterial Blood Methemoglobin 1.2 % (0-2) Blood Gas Hemoglobin 9.8 G/DL (12.0-16.0) Oxygen Delivery Device VENTILATOR Blood Gas Ventilator Setting PRVC/AC Blood Gas Inspired Oxygen 60 % Imaging Last 48 hours Impressions Abdomen X-Ray 06/24/17 0600 Signed Impressions: Service Date/Time: Saturday, June 24, 2017 03:14 - CONCLUSION: Dilated transverse colon and no definite pneumatosis intestinalis or technique, however the patient's prior CT examination was suggestive of pneumatosis. Domingo Pollack MD Chest X-Ray 06/24/17 0000 Signed Impressions: Service Date/Time: Saturday, June 24, 2017 03:08 - CONCLUSION: Bibasilar atelectasis and/or infiltrate is seen. Domingo Pollack MD Chest X-Ray 06/23/17 0000 Signed Impressions: Service Date/Time: Friday, June 23, 2017 03:45 - CONCLUSION: No significant interval change Arvind Hernandez MD CT Angiography 06/23/17 0000 Signed Impressions: Service Date/Time: Friday, June 23, 2017 20:34 - CONCLUSION: 1. No evidence of pulmonary embolus. 2. Increased patchy bilateral pulmonary consolidation with mild thin-walled cavitation of focal consolidation in the right upper lobe. This finding could be related consolidation of an area of long with emphysema involvement. 3. Mild to moderate upper lobe pulmonary parenchymal emphysema is seen. Rosas Rowell MD Abdomen/Pelvis CT 06/23/17 0000 Signed Impressions: Service Date/Time: Friday, June 23, 2017 20:34 - CONCLUSION: 1. Bowel wall pneumatosis involving the cecum and proximal transverse colon. Findings are suspicious for ischemic colitis. Surrounding inflammatory change in the intra-abdominal fat. No portal venous gas or free air identified. 2. Prominent bilateral lower lobe pulmonary consolidation. Rosas Rowell MD Abdomen X-Ray 06/23/17 0000 Signed Impressions: Service Date/Time: Friday, June 23, 2017 03:51 - CONCLUSION: Diffuse mild gaseous distention of bowel Arvind Hernandez MD Last Impressions Chest X-Ray 06/23/17 0000 Signed Impressions: Service Date/Time: Friday, June 23, 2017 03:45 - CONCLUSION: No significant interval change Arvind Hernandez MD Abdomen X-Ray 06/23/17 0000 Signed Impressions: Service Date/Time: Friday, June 23, 2017 03:51 - CONCLUSION: Diffuse mild gaseous distention of bowel Arvind Hernandez MD Brain MRI 06/22/17 0000 Signed Impressions: Service Date/Time: Thursday, June 22, 2017 12:10 - CONCLUSION: All ischemic changes, negative for acute ischemic event. Negative for parenchymal hemorrhage. Usman Pimentel MD FACR Abdomen/Pelvis CT 06/14/17 0000 Signed Impressions: Service Date/Time: Wednesday, June 14, 2017 22:32 - CONCLUSION: 1. Increasing basilar lung consolidation since chest CT from June 04. 2. Mild ileus. No bowel obstruction, free air or free fluid. 3. Left hip replacement. Advanced osteoarthritis right hip. NG in stomach. Rectal tube present. Humphrey Weston MD Head CT 06/04/17 0000 Signed Impressions: Service Date/Time: Sunday, June 04, 2017 18:46 - CONCLUSION: 1. No significant change compared to 06/03/17. 2. No acute infarct, acute hemorrhage , mass effect or extra-axial fluid collection. 3. Scattered old lacunar infarcts within the bilateral basal ganglia. 4. Mild periventricular and subcortical white matter small vessel ischemic changes bilaterally. 5. Old right posterior parietal infarct. 6. Chronic opacification of right mastoid air cells. Mckay Stone MD Chest CT 06/04/17 0000 Signed Impressions: Service Date/Time: Sunday, June 04, 2017 18:49 - CONCLUSION: 1. Right mid lung field and posterior bibasilar patchiness consistent with probable areas of pneumonia and/or atelectasis. Clinical correlation is recommended. 2. Tiny bilateral pleural effusions. 3. Cardiomegaly and coronary artery calcifications. 4. Minimal scattered emphysematous changes bilaterally. Mckay Stone MD Objective Remarks GENERAL: Patient is 61 yo gentleman on ventilator via trach, currently on CPAP SKIN: Warm and dry. HEAD: Normocephalic. EYES: No scleral icterus. No injection or drainage. NECK: trachea midline. No JVD. + Trach CARDIOVASCULAR: Regular rate and rhythm. RESPIRATORY: equal chest rise. 40% fio2. Clear to auscultation GASTROINTESTINAL: Abdomen soft, protuberant non-tender, minimally distended, bowel sounds present. MUSCULOSKELETAL: No cyanosis, or edema. Neuro: Off sedation, follows simple commands intermittently. A/P Assessment and Plan Assessment: 61yM with history of schizoaffective d/o and bipolar d/o who presented with acute hypoxic respiratory failure and now fungemia without overt source. Not improving on pathway. No meaningful improvements over last 2 weeks. s/p trach 06/15 and PEG 06/17. remains off pathway. needs long-term acute care level of rehabilitation. tube feed intolerance persists. has been without nutrition since 06/24. Started on PPN 06/30 Plan: Neuro: Acute Metabolic Encephalopathy Agitated Delirium - improving. Schizoaffective disorder/bipolar disorder History of alcohol abuse History of CVA Monitor neuro status. Resumed sedation with Versed gtt on 07/01 MRI brain 06/22: No acute ischemic events, no hemorrhage On Lactulose level 30ml TID, Ammonia level slightly elevated 42. EEG showed mod. encephalopathy Neuro is following. Dr. Rosibel Cheatham 10mg IM q12h prn for agitation CV: Uncontrolled hypertension - resolved. hyperlipidemia Monitor HR and BP keep MAP>65mmHg Hold antihypertensive meds ( Norvasc 5mg daily, clonidine 0.3mg po q8h, Lopressor 50mg Q12) 2-D echo with normal LV/RV function Pulmo: Acute respiratory failure requiring mechanical ventilation - persistent. COPD exacerbation Resolving community acquired pneumonia Intubated and placed on mechanical ventilation on 06/04. Continue with vent support keep sat >92%. Vent bundle, bronchodilators, on prednisone taper. On PRVC CTA chest negative for PE. trach 06/[address] Sapp/Alexander continue daily SBTs. t-piece trials if tolerated. Continue CPAP trials GI/liver: GERD Acute protein calorie malnutrition- severe 06/23 KUB abdomen: Mild gaseous distention of bowel Ct abd/pelvis 06/23: Pneumatosis involving cecum and transverse colon concerning for ischemia. C. Diff negative hold bowel regimen. Surgery following patient for ischemic colitis- no surgical intervention recommended at this time and they have signed off. I discussed case with Dr. Anival Madden covering for Dr. Monroe on 06/30 as patient continues to have ileus with bilious output from PEG tube and not tolerating tube feeds. hold tube feeds, keep reglan iv. restart tube feeds 06/29 after 24h of reglan. having regular bowel movements. passing flatus. Consulted GI and view of ileus for evaluation of ileus and ischemic colitis. They're planning colonoscopy for further evaluation. Started PPN on 06/30 as unable to tolerate PEG tube feeds. PICC line placed and was switched to TPN on 07/01 KUB done on 06/29 with dilated small and large bowel loops. 07/02: Discussed with Dr. Caraballo requested to restart tube feeds. Neurosurgery has signed off Follow-up KUB -slight improvement in dilated small bowel 07/04 Erythromycin 200 mg every 6 hours IV started , patient continues on metoclopramide, PEG tube clamped. Begin trickle feeds in a.m. Renal/: ROSENDO/ CKD - resolved. Rhabdomyolysis - resolved. Acute intravascular volume overload- resolved. Metabolic alkalosis- resolving. Monitor renal function, electrolytes replacement per protocol. saline lock ivf. l ID: Fungemia- resolved. Community Acquired Pneumonia- resolved. Ischemic colitis Sepsis [facility] Associated pneumonia with pseudomonas/e.coli completed full 14 day course of micagunfin for fungemia. Continue Zosyn. Micafungin added per ID CT abdomen pelvis on 06/23 shows pneumatosis involving cecum and transverse colon consistent with ischemic colitis. Patient evaluated by general surgery Dr. Monroe who at this time recommends continuing IV fluids and antibiotics and he will be available for surgery if patient develops evidence of peritonitis or worsens clinically. ID is following Sputum cx: E.coli on 06/04, sputum 06/10: normal resp tamara BC 06/14, 06/19 : NGTD, Sputum cx 06/21: E.coli, Pseudomonas Endocrine: Hyperglycemia of critical illness SSI medium scale, q4h Heme: Anemia secondary to chronic disease Monitor CBC. Prophylaxis: Pepcid/SCDs. SQ Lovenox Lines: Right sided PICC line placed 06/30 Discussed with INSTRUMENT LENS INSPECTOR, discussed with Dr. Monroe my billing statement This patient remains critically ill with one or more organ systems which are or may become a threat to life. I have spent in excess of 31 minutes discontinuously in the care and management of this patient. This time is exclusive of procedures, and includes, but is not limited to, evaluation of the patient, review of the medical record, discussions with family, consultants, nursing staff, or respiratory therapy, and documentation in the medical record. Physician Elvira Null MD Jul 04, 2017 15:23
--- NOTE | 2017-07-04 19:35 | HHI.PR ---
Subjective Remarks 61 YOWM with VDRF,Trach,COPD AC 14, Fi02 60% Sedated with Diprivan and Precedex No Fever Gets agitated and starts belly breathing Feeding tube clamped Objective Vital Signs Vital Signs Date Time Temp Pulse Resp B/P (MAP) Pulse Ox O2 Delivery O2 Flow Rate FiO2 07/04/17 16:00 98.3 69 34 106/59 (75) 100 07/04/17 16:00 69 07/04/17 15:50 100 50 07/04/17 14:00 67 07/04/17 12:00 57 07/04/17 12:00 97.8 57 27 120/62 (81) 100 07/04/17 11:48 50 07/04/17 11:48 100 50 07/04/17 10:00 64 07/04/17 09:08 98 50 07/04/17 08:15 63 07/04/17 08:00 60 07/04/17 08:00 98.5 66 39 98/56 (70) 97 07/04/17 06:00 71 07/04/17 04:03 99 60 07/04/17 04:00 98.6 73 48 117/63 (81) 96 07/04/17 04:00 73 07/04/17 04:00 60 07/04/17 02:00 93 07/04/17 00:29 100 60 07/04/17 00:00 60 07/04/17 00:00 100 07/04/17 00:00 98.3 100 40 112/76 (88) 100 07/03/17 22:00 121 07/03/17 20:49 100 60 07/03/17 20:00 108 07/03/17 20:00 60 07/03/17 20:00 98.1 108 38 115/77 (90) 100 I/O 07/03/17 07/03/17 07/03/17 07/04/17 07/04/17 07/04/17 07:00 15:00 23:00 07:00 15:00 23:00 Intake Total 880 ml 200 ml 3740 ml 320 ml Output Total 1550 ml 1600 ml 800 ml Balance -670 ml 200 ml 2140 ml -480 ml IV Total 820 ml 200 ml 3740 ml 320 ml Other 60 ml Output Urine Total 650 ml 1200 ml 600 ml Gastric Drainage Total 900 ml 400 ml 200 ml # Bowel Movements 1 1 Result Diagram: 07/04/175 07/04/17 044 Objective Remarks GENERAL: MBMN WM, on Vent, sedated SKIN: Warm and dry. HEAD: Normocephalic. EYES: No scleral icterus. No injection or drainage. NECK: Supple, trachea midline. No JVD or lymphadenopathy. CARDIOVASCULAR: Regular rate and rhythm without murmurs, gallops, or rubs. RESPIRATORY: Breath sounds equal bilaterally. No accessory muscle use. GASTROINTESTINAL: Abdomen soft, non-tender, nondistended. MUSCULOSKELETAL: No cyanosis, or edema. BACK: Nontender without obvious deformity. No CVA tenderness. A/P Assessment and Plan VDRF S/P Trach COPD COPD Schzoaffective disorder Bipolar disorder PLAN: Vent support PRVC AC mode Cont Abx Sedation with Precedex and Versed Syed Cuellar MD Jul 04, 2017 19:35
[2017-07-04] MEDS: FAT EMULSION 20% INJ 250 ML (Daily over 8 hours) IV-CENTRAL SCH (20:00)
--- NOTE | 2017-07-04 20:24 | HHI.IDPN ---
Subjective Subjective Remarks chart reviewed inteerim progress noted remains on vent and not doing too good Failing CPAP trials (< 1 hr) Growin PSAE and 2nd GNB in sputum thick white secretions + dioarrhea no fever CXR with persistent infiltrates Antibiotics Current Medications Zosyn: started 06/24 Micafungin Lines PIV Past Medical History COPD Hypertension Hyperlipidemia CVA Schizoaffective disorder Bipolar disorder GERD Acute renal failure Arthritis Alcohol withdrawal seizures Past Surgical History Left partial pneumonectomy Left hip surgery Allergies: Coded Allergies: hydrochlorothiazide (Unverified Allergy, Intermediate, EFFECTS HIS SODIUM LEVEL, 02/12/17) PT STATES HE IS NOT ALLERGIC codeine (Unverified Adverse Reaction, Severe, 02/12/17) PT STATES HE IS NOT ALLERGIC Objective . Vital Signs Date Time Temp Pulse Resp B/P (MAP) Pulse Ox O2 Delivery O2 Flow Rate FiO2 07/04/17 18:00 69 07/04/17 16:00 98.3 69 34 106/59 (75) 100 07/04/17 16:00 69 07/04/17 15:50 100 50 07/04/17 14:00 67 07/04/17 12:00 57 07/04/17 12:00 97.8 57 27 120/62 (81) 100 07/04/17 11:48 50 07/04/17 11:48 100 50 07/04/17 10:00 64 07/04/17 09:08 98 50 07/04/17 08:15 63 07/04/17 08:00 60 07/04/17 08:00 98.5 66 39 98/56 (70) 97 07/04/17 06:00 71 07/04/17 04:03 99 60 07/04/17 04:00 98.6 73 48 117/63 (81) 96 07/04/17 04:00 73 07/04/17 04:00 60 07/04/17 02:00 93 07/04/17 00:29 100 60 07/04/17 00:00 60 07/04/17 00:00 100 07/04/17 00:00 98.3 100 40 112/76 (88) 100 07/03/17 22:00 121 07/03/17 20:49 100 60 07/04/17 07/04/17 07/05/17 15:00 23:00 07:00 Intake Total 192 ml 1254 ml Output Total 900 ml Balance 192 ml 354 ml IV Total 192 ml 1254 ml Output Urine Total 900 ml # Bowel Movements 2 . Laboratory Tests Test 07/03/17 05:10 07/04/17 04:45 White Blood Count 8.7 TH/MM3 8.3 TH/MM3 Red Blood Count 2.84 MIL/MM3 2.63 MIL/MM3 Hemoglobin 8.4 GM/DL 7.8 GM/DL Hematocrit 25.1 % 23.2 % Mean Corpuscular Volume 88.3 FL 88.2 FL Mean Corpuscular Hemoglobin 29.6 PG 29.8 PG Mean Corpuscular Hemoglobin Concent 33.5 % 33.8 % Red Cell Distribution Width 14.8 % 14.9 % Platelet Count 274 TH/MM3 285 TH/MM3 Mean Platelet Volume 7.2 FL 7.4 FL Neutrophils (%) (Auto) 72.4 % Lymphocytes (%) (Auto) 15.1 % Monocytes (%) (Auto) 8.9 % Eosinophils (%) (Auto) 3.0 % Basophils (%) (Auto) 0.6 % Neutrophils # (Auto) 6.0 TH/MM3 Lymphocytes # (Auto) 1.2 TH/MM3 Monocytes # (Auto) 0.7 TH/MM3 Eosinophils # (Auto) 0.2 TH/MM3 Basophils # (Auto) 0.0 TH/MM3 CBC Comment AUTO DIFF Differential Total Cells Counted 100 Neutrophils % (Manual) 71 % Band Neutrophils % 7 % Lymphocytes % 6 % Monocytes % 5 % Eosinophils % 4 % Neutrophils # (Manual) 7.1 TH/MM3 Metamyelocytes 2 % Myelocytes 3 % Promyelocytes 2 % Differential Comment FINAL DIFF MANUAL Platelet Estimate NORMAL Platelet Morphology Comment NORMAL Red Cell Morphology Comment NORMAL Laboratory Tests Test 07/04/17 04:45 Blood Urea Nitrogen 12 MG/DL Creatinine 0.65 MG/DL Random Glucose 317 MG/DL Calcium Level 7.6 MG/DL Sodium Level 134 MEQ/L Potassium Level 3.6 MEQ/L Chloride Level 103 MEQ/L Carbon Dioxide Level 21.0 MEQ/L Anion Gap 10 MEQ/L Estimat Glomerular Filtration Rate 125 ML/MIN Microbiology Date/Time Source Procedure Growth Status 07/02/17 13:30 Sputum Endotracheal Gram Stain - Final Resulted 07/02/17 13:30 Sputum Culture - Preliminary Pseudomonas Aeruginosa Gram Negative Erik Resulted Imaging Last Impressions Chest X-Ray 1/4/18 0600 Signed Impressions: Service Date/Time: July 03:32 - CONCLUSION: Unchanged bibasilar infiltrates. Yuri Isidro Jr., MD Abdomen X-Ray 07/04/17599 Signed Impressions: Service Date/Time: July 03:35 - CONCLUSION: Dilated small bowel has improved slightly from the prior study. Yuri Isidro Jr., MD CT Angiography 07/01/17 0000 Signed Impressions: Service Date/Time: Saturday, July 01, 2017 23:54 - CONCLUSION: 1. Study limited by motion. 2. No pulmonary emboli. 3. Worsening consolidation within the right upper lobe. Infectious etiology suspected. 4. Small bilateral pleural effusions and associated passive atelectasis. This is new. 5. Emphysematous changes. 6. 6 mm left upper lobe pulmonary nodule. Yuri Isidro Jr., MD Abdomen/Pelvis CT 07/01/17 0000 Signed Impressions: Service Date/Time: Saturday, July 01, 2017 23:54 - CONCLUSION: 1. Breathing degraded study. 2. Dilatation of proximal jejunal loops which slowly taper. No obstructing mass or lesion. This could relate to a focal ileus. I cannot completely exclude a bowel obstruction. Small amount of free fluid. 3. Mild inflammatory change involving the mesentery adjacent to the ascending colon has improved somewhat. No pneumatosis involving the bowel observed. Yuri Isidro Jr., MD Brain MRI 06/22/17 0000 Signed Impressions: Service Date/Time: Thursday, June 22, 2017 12:10 - CONCLUSION: All ischemic changes, negative for acute ischemic event. Negative for parenchymal hemorrhage. Usman Pimentel MD FACR Head CT 06/04/17 0000 Signed Impressions: Service Date/Time: Sunday, June 04, 2017 18:46 - CONCLUSION: 1. No significant change compared to 06/03/17. 2. No acute infarct, acute hemorrhage , mass effect or extra-axial fluid collection. 3. Scattered old lacunar infarcts within the bilateral basal ganglia. 4. Mild periventricular and subcortical white matter small vessel ischemic changes bilaterally. 5. Old right posterior parietal infarct. 6. Chronic opacification of right mastoid air cells. Mckay Stone MD Chest CT 06/04/17 0000 Signed Impressions: Service Date/Time: Sunday, June 04, 2017 18:49 - CONCLUSION: 1. Right mid lung field and posterior bibasilar patchiness consistent with probable areas of pneumonia and/or atelectasis. Clinical correlation is recommended. 2. Tiny bilateral pleural effusions. 3. Cardiomegaly and coronary artery calcifications. 4. Minimal scattered emphysematous changes bilaterally. Mckay Stone MD Physical Exam GENERAL: Sedated, on the vent, NAD. SKIN: Cool, dry. No generalized rash EYES: Pupils equal and round and reactive. Extraocular motions intact. No scleral icterus. No injection or drainage. NECK: trach in place , site ok CARDIOVASCULAR: Regular rate and rhythm without murmurs, gallops, or rubs. No JVD. Peripheral pulses symmetric. RESPIRATORY/CHEST: Coarse BS bilaterally GASTROINTESTINAL: Abdomen, less distended no tenderness, not guarding, BS hypoactive. GENITOURINARY: Without palpable bladder distension. condom catheter in place with clear yellow MUSCULOSKELETAL: Extremities without clubbing, cyanosis. (+) pedal edema. No calf tenderness. No mottling or clubbing. NEUROLOGICAL: moves all 4 extremities, awake, alert, follows commands PSYCHIATRIC: cooperative LINE: No evidence of infection Assessment & Plan Remarks IMPRESSION Mental status change, PNA, E.coli, S/P Rx Acute VDRF, failure to wean Multiple med problems Leukocytosis, better Abdominal distention, diarrhea - C.diff negative - likely ischemic colitis - CT better as far as pneumatosis C glabrata sepsis, S/P Rx New HCAP PNA (PSAE and E coli in sputum) PLAN Continue Zosyn to cover both PSAE and intraabd aerobic/anaerobic tamara Follow temps Follow repeat sputum G/S C/S dc Micafungin - Follow C/S Monitor progress Weaning per CCM Ml Wiseman MD Jul 04, 2017 20:24
[2017-07-04] MEDS: DEXT 5%-NACL 0.9% 1000 ML INJ 1,000 ML IV SCH ×2 (20:50→21:13)
[2017-07-04] MEDS: MULTIVITAMIN INJ 5 ML, FOLIC ACID INJ 0.5 MG in AMINO ACID IN D5W W/ELECTROLYT 1,000 ML IV-CENTRAL SCH ×3 (21:12)
[2017-07-05] VITALS (18 sets, daily range): BP systolic 116–151; BP diastolic 61–78; PULSE 65–81; RESP 30–39; TEMP 98–98.6; O2SAT 97–100
[2017-07-05] MEDS: ERYTHROMYCIN IV SCH ×4 (01:09→18:20)
[2017-07-05] MEDS: PIPERACIL-TAZO 4.5 GM PREMIX 100 ML IV SCH ×4 (02:00→20:16)
[2017-07-05] MEDS: RESP: ALBUTEROL 2.5 MG/IPRATROPIUM 0.5 MG NEB (SCH) NEB ×4 (02:54→21:44)
[2017-07-05] MEDS: CHLORHEXIDINE GLUCONATE 2 % 1 PACK (2 CLOTHS) TOP SCH (04:00)
[2017-07-05] MEDS: INSULIN NovoLIN REGULAR SUPPLEMENTAL SCALE SQ SCH ×6 (04:38→23:49)
[2017-07-05] MEDS ORDERED: DEXTROSE 50% IN WATER 50 ML VIAL(D50) IV PUSH PRN (05:15)
[2017-07-05] MEDS ORDERED: GLUCAGON 1 MG/ML VIAL OTHER PRN (05:15)
[2017-07-05 05:31] LABS: AUTOMATED NEUTROPHIL # 5.6 TH/MM3 (1.8-7.7); BASOPHIL # 0.1 TH/MM3 (0-0.2); BASOPHIL % 0.8 % (0.0-2.0); EOSINOPHIL # 0.3 TH/MM3 (0-0.4); EOSINOPHIL % 4.1 % (0.0-4.0); HEMATOCRIT 23.3 % (39.0-51.0); HEMOGLOBIN 7.8 GM/DL (13.0-17.0); LYMPH % 13.8 % (9.0-44.0); LYMPHOCYTE # 1.1 TH/MM3 (1.0-4.8); MEAN CELL VOLUME 88.4 FL (80.0-100.0); MEAN CORPUSCULAR HEMOGLOBIN 29.7 PG (27.0-34.0); MEAN CORPUSCULAR HGB CONC 33.6 % (32.0-36.0); MEAN PLATELET VOLUME 7.3 FL (7.0-11.0); MONO % 9.4 % (0.0-8.0); MONOCYTE # 0.7 TH/MM3 (0-0.9); NEUT % 71.9 % (16.0-70.0); PLATELET COUNT 286 TH/MM3 (150-450); RED BLOOD COUNT 2.63 MIL/MM3 (4.50-5.90); RED CELL DISTRIBUTION WIDTH 15.4 % (11.6-17.2); WHITE BLOOD COUNT 7.8 TH/MM3 (4.0-11.0)
[2017-07-05 05:49] LABS: BICARBONATE 24.2 MEQ/L (21.0-32.0); CALCIUM 7.8 MG/DL (8.5-10.1); CREATININE 0.6 MG/DL (0.60-1.30)
[2017-07-05] MEDS: METOCLOPRAMIDE HCL 10 MG/2 ML VIAL IV PUSH SCH ×3 (06:58→21:55)
[2017-07-05] MEDS: CHLORHEXIDINE 0.12% (ORAL KIT) 15 ML CUP MT SCH ×2 (08:00→20:24)
[2017-07-05] MEDS: MULTIVITAMIN INJ 5 ML, FOLIC ACID INJ 0.5 MG in AMINO ACID IN D5W W/ELECTROLYT 1,000 ML IV-CENTRAL SCH ×6 (08:07→13:49)
[2017-07-05 08:13] LABS: BANDS 5 % (0-6); BASOPHILS 1 % (0-2); LYMPHOCYTES 12 % (9-44); METAMYELOCYTES 4 % (0-1); MONOCYTES 1 % (0-8); MYELOCYTES 2 % (0-0); NEUTROPHIL # MANUAL DIFF 6.6 TH/MM3 (1.8-7.7); POLYS (SEG NEUTROPHILS) 74 % (16-70)
[2017-07-05] MEDS: guanFACINE HCL 1 MG TAB PO SCH ×2 (09:00→21:55)
[2017-07-05] MEDS: NUTRISOURCE FIBER POWDER 1 PACK G-TUBE SCH ×2 (09:00→21:00)
[2017-07-05] MEDS: SENNOSIDES SYRUP 8.8 MG/5 ML CUP PO SCH (09:15)
[2017-07-05] MEDS: INSULIN DETEMIR 100 UNITS/ML VIAL SQ SCH ×2 (09:15→21:55)
[2017-07-05] MEDS: SODIUM CHLORIDE 0.9% FLUSH 10 ML FLUSH IV FLUSH SCH ×3 (09:16→21:55)
--- NOTE | 2017-07-05 11:31 | HHI.GIFU ---
Subjective Remarks Sheets hemoglobin remained stable at 7.8 unchanged in 24 hours Trickle feeds initiated this morning at 10 cc an hour Patient is still very pale Abdomen round soft, soft bowel sounds Objective Vitals I&O Vital Signs Date Time Temp Pulse Resp B/P (MAP) Pulse Ox O2 Delivery O2 Flow Rate FiO2 07/05/17 08:34 100 50 07/05/17 08:00 50 07/05/17 06:00 71 07/05/17 04:10 98 50 07/05/17 04:00 98.0 81 30 138/77 (97) 99 07/05/17 04:00 81 07/05/17 04:00 50 07/05/17 02:00 68 07/05/17 01:06 99 50 07/05/17 00:00 50 07/05/17 00:00 65 07/05/17 00:00 98.1 65 30 116/61 (79) 97 07/04/17 22:00 68 07/04/17 20:22 99 50 07/04/17 20:00 67 07/04/17 20:00 50 07/04/17 20:00 98.3 67 35 119/65 (83) 100 07/04/17 18:00 69 07/04/17 16:00 98.3 69 34 106/59 (75) 100 07/04/17 16:00 69 07/04/17 15:50 100 50 07/04/17 14:00 67 07/04/17 12:00 57 07/04/17 12:00 97.8 57 27 120/62 (81) 100 07/04/17 11:48 50 07/04/17 11:48 100 50 I/O 07/04/17 07/04/17 07/04/17 07/05/17 07/05/17 07/05/17 07:00 15:00 23:00 07:00 15:00 23:00 Intake Total 320 ml 192 ml 1254 ml 60 ml 100 ml Output Total 800 ml 900 ml 2175 ml Balance -480 ml 192 ml 354 ml -2115 ml 100 ml IV Total 320 ml 192 ml 1254 ml 100 ml Other 60 ml Output Urine Total 600 ml 900 ml 2175 ml Gastric Drainage Total 200 ml # Bowel Movements 1 2 0 Laboratory Laboratory Tests Test 07/05/17 05:00 White Blood Count 7.8 Red Blood Count 2.63 Hemoglobin 7.8 Hematocrit 23.3 Mean Corpuscular Volume 88.4 Mean Corpuscular Hemoglobin 29.7 Mean Corpuscular Hemoglobin Concent 33.6 Red Cell Distribution Width 15.4 Platelet Count 286 Mean Platelet Volume 7.3 Neutrophils (%) (Auto) 71.9 Lymphocytes (%) (Auto) 13.8 Monocytes (%) (Auto) 9.4 Eosinophils (%) (Auto) 4.1 Basophils (%) (Auto) 0.8 Neutrophils # (Auto) 5.6 Lymphocytes # (Auto) 1.1 Monocytes # (Auto) 0.7 Eosinophils # (Auto) 0.3 Basophils # (Auto) 0.1 CBC Comment AUTO DIFF Differential Total Cells Counted 100 Neutrophils % (Manual) 74 Band Neutrophils % 5 Lymphocytes % 12 Monocytes % 1 Eosinophils % 1 Basophils % 1 Neutrophils # (Manual) 6.6 Metamyelocytes 4 Myelocytes 2 Differential Comment FINAL DIFF MANUAL Platelet Estimate NORMAL Platelet Morphology Comment NORMAL Red Cell Morphology Comment NORMAL Blood Urea Nitrogen 10 Creatinine 0.60 Random Glucose 356 Calcium Level 7.8 Sodium Level 137 Potassium Level 3.6 Chloride Level 105 Carbon Dioxide Level 24.2 Anion Gap 8 Estimat Glomerular Filtration Rate 137 Date/Time Source Procedure Growth Status 07/01/17 12:09 Blood Peripheral Aerobic Blood Culture - Preliminary NO GROWTH IN 4 DAYS Resulted 07/01/17 12:09 Blood Peripheral Anaerobic Blood Culture - Preliminary NO GROWTH IN 4 DAYS Resulted 07/05/17 09:30 Sputum Expectorated Sputum Gram Stain Pending Received 07/05/17 09:30 Sputum Expectorated Sputum Sputum Culture Pending Received 06/10/17 12:45 Urine Catheterized Urine Urine Culture - Final NO GROWTH IN 48 HOURS. Complete Imaging Last Impressions Chest X-Ray 07/04/17599 Signed Impressions: Service Date/Time: July 03:32 - CONCLUSION: Unchanged bibasilar infiltrates. Yuri Isidro Jr., MD Abdomen X-Ray 07/04/17599 Signed Impressions: Service Date/Time: July 03:35 - CONCLUSION: Dilated small bowel has improved slightly from the prior study. Yuri Isidro Jr., MD CT Angiography 07/01/17 0000 Signed Impressions: Service Date/Time: Saturday, July 01, 2017 23:54 - CONCLUSION: 1. Study limited by motion. 2. No pulmonary emboli. 3. Worsening consolidation within the right upper lobe. Infectious etiology suspected. 4. Small bilateral pleural effusions and associated passive atelectasis. This is new. 5. Emphysematous changes. 6. 6 mm left upper lobe pulmonary nodule. Yuri Isidro Jr., MD Abdomen/Pelvis CT 07/01/17 0000 Signed Impressions: Service Date/Time: Saturday, July 01, 2017 23:54 - CONCLUSION: 1. Breathing degraded study. 2. Dilatation of proximal jejunal loops which slowly taper. No obstructing mass or lesion. This could relate to a focal ileus. I cannot completely exclude a bowel obstruction. Small amount of free fluid. 3. Mild inflammatory change involving the mesentery adjacent to the ascending colon has improved somewhat. No pneumatosis involving the bowel observed. Yuri Isidro Jr., MD Brain MRI 06/22/17 0000 Signed Impressions: Service Date/Time: Thursday, June 22, 2017 12:10 - CONCLUSION: All ischemic changes, negative for acute ischemic event. Negative for parenchymal hemorrhage. Usman Pimentel MD FACR Head CT 06/04/17 0000 Signed Impressions: Service Date/Time: Sunday, June 04, 2017 18:46 - CONCLUSION: 1. No significant change compared to 06/03/17. 2. No acute infarct, acute hemorrhage , mass effect or extra-axial fluid collection. 3. Scattered old lacunar infarcts within the bilateral basal ganglia. 4. Mild periventricular and subcortical white matter small vessel ischemic changes bilaterally. 5. Old right posterior parietal infarct. 6. Chronic opacification of right mastoid air cells. Mckay Stone MD Chest CT 06/04/17 0000 Signed Impressions: Service Date/Time: Sunday, June 04, 2017 18:49 - CONCLUSION: 1. Right mid lung field and posterior bibasilar patchiness consistent with probable areas of pneumonia and/or atelectasis. Clinical correlation is recommended. 2. Tiny bilateral pleural effusions. 3. Cardiomegaly and coronary artery calcifications. 4. Minimal scattered emphysematous changes bilaterally. Mckay Stone MD Physical Exam HEENT: normocephalic; atraumatic; no jaundice. trach to vent , pale CHEST: coarse on vent via trach, tachypnea respirations , decreased at bases CARDIAC: Controlled heart rate ABDOMEN: Soft, mild distention; bowel sounds soft PEG tube site clean and dry , changing to trickle feeds at 10 cc an hour today EXTREMITIES: No clubbing, cyanosis, or edema. SKIN: Normal; no rash; pale MOTH EXTERMINATOR: nonverbal, eyes closed, on vent, not communicating today Assessment and Plan Plan ASSESSMENT: - ischemic colitis/ileus- This is 61-year-old male with a history of COPD, hypertension, hyperlipidemia, CVA, schizoaffective disorder, bipolar disorder, GERD, renal failure, and arthritis who presented to the emergency room on 2016 from a group home facility for evaluation of altered mental status. He was found to have Pneumonia and developed respiratory failure. Abdominal soft. He under went EGD/PEG tube with our services on 06/17/17. Patient developed acute elevation on WBC, CT abdomen pelvis done on 06/23 revealed pneumatosis involving cecum and transverse colon suggesting ischemic colitis. Gen. surgery consulted and patient evaluated by Dr. Monroe today who recommends medical management at this time with IV fluids and continuation of antibiotics. Currently pt on mechanical ventilation via tracheostomy. No rectal bleeding or hematemesis reported. Abd X-ray on 06/26/17 No visible change in dilated loop of transverse colon. - Possible ischemic colitis Ileus resolving GERD, - Chronic respiratory failure- trach , minimal response Abdominal x-ray today shows some resolving of patient's ileus, patient now has soft bowel sounds. Gastric tube unclamped trickle feeds started at 10 cc an hour Anemia stable at 7.8 over the last 24 hours, C. difficile negative 07/01/17- Abd X-ray today showed ileus possible obstruction, continues with increased amounts of dark bile to low to intermittent suction PEG, patient was started on erythromycin which seems to have controlled bilious drainage, ileus resolving Patient is very critical ill PLAN: - NPO - Clamp PEG tube trickle feeds again in the a.m. 10 cc an hour. Monitor for any abdominal distention and may reconnect to suction if greater than 200 cc residual - Hemoccult stool X 2 , - Monitor for any acute bleed - Supportive care If patient is stable over the weekend we'll consider EGD/colonoscopy for the first of the week. Could be done in the OR under general anesthesia may be the safer approach. CARI Gonzalez with GI is working this weekend and will be rounding on patient - Patient seen and examined by myself, note is written on his behalf. And reviewed per Annmarie Yadav Jul 05, 2017 11:31
[2017-07-05] MEDS: FAMOTIDINE 20 MG/2 ML VIAL IV PUSH SCH ×2 (11:55→23:49)
[2017-07-05] MEDS: DEXMEDETOMIDINE INJ 1,000 MCG in SODIUM CHLOR 0.9% 250 ML INJ 240 ML IV PRN ×2 (13:04→23:59)
[2017-07-05] MEDS: DEXT 5%-NACL 0.9% 1000 ML INJ 1,000 ML IV SCH (13:30)
[2017-07-05] MEDS: MIDAZOLAM 100 MG/NS 100 ML DRIP Premix IV PRN (16:01)
--- NOTE | 2017-07-05 18:05 | HHI.PR ---
Subjective Remarks 61 YOWM with VDRF,Trach,COPD AC 14, Fi02 60% Sedated with Diprivan and Precedex No Fever Gets agitated and starts belly breathing Tolerates Trickle feed Objective Vital Signs Vital Signs Date Time Temp Pulse Resp B/P (MAP) Pulse Ox O2 Delivery O2 Flow Rate FiO2 07/05/17 16:00 68 07/05/17 16:00 50 07/05/17 16:00 98.5 68 34 147/71 (96) 97 07/05/17 15:51 99 50 07/05/17 14:00 66 07/05/17 12:00 98.6 68 37 131/71 (91) 97 07/05/17 12:00 68 07/05/17 12:00 50 07/05/17 11:32 99 50 07/05/17 10:00 74 07/05/17 08:34 100 50 07/05/17 08:00 69 07/05/17 08:00 98.6 69 33 122/74 (90) 100 07/05/17 08:00 50 07/05/17 06:00 71 07/05/17 04:10 98 50 07/05/17 04:00 98.0 81 30 138/77 (97) 99 07/05/17 04:00 81 07/05/17 04:00 50 07/05/17 02:00 68 07/05/17 01:06 99 50 07/05/17 00:00 50 07/05/17 00:00 65 07/05/17 00:00 98.1 65 30 116/61 (79) 97 07/04/17 22:00 68 07/04/17 20:22 99 50 07/04/17 20:00 67 07/04/17 20:00 50 07/04/17 20:00 98.3 67 35 119/65 (83) 100 I/O 07/04/17 07/04/17 07/04/17 07/05/17 07/05/17 07/05/17 07:00 15:00 23:00 07:00 15:00 23:00 Intake Total 320 ml 192 ml 1254 ml 60 ml 1455.1 ml Output Total 800 ml 900 ml 2175 ml Balance -480 ml 192 ml 354 ml -2115 ml 1455.1 ml IV Total 320 ml 192 ml 1254 ml 1455.1 ml Other 60 ml Output Urine Total 600 ml 900 ml 2175 ml Gastric Drainage Total 200 ml # Bowel Movements 1 2 0 Result Diagram: 07/05/17 0500 07/05/17 0500 Objective Remarks GENERAL: MBMN WM, on Vent, sedated SKIN: Warm and dry. HEAD: Normocephalic. EYES: No scleral icterus. No injection or drainage. NECK: Supple, trachea midline. No JVD or lymphadenopathy. CARDIOVASCULAR: Regular rate and rhythm without murmurs, gallops, or rubs. RESPIRATORY: Breath sounds equal bilaterally. No accessory muscle use. GASTROINTESTINAL: Abdomen soft, non-tender, nondistended. MUSCULOSKELETAL: No cyanosis, or edema. BACK: Nontender without obvious deformity. No CVA tenderness. A/P Assessment and Plan VDRF S/P Trach COPD COPD Schzoaffective disorder Bipolar disorder PLAN: Vent support PRVC AC mode Cont Abx Sedation with Precedex and Versed Trickle tube feed Syed Cuellar MD Jul 05, 2017 18:05
--- NOTE | 2017-07-05 18:34 | HHI.CCPN ---
Subjective Remarks/Hospital Course 06/04: Mr. Reilly is a 61-year-old male with a history of COPD, hypertension, hyperlipidemia, CVA, schizoaffective disorder, bipolar disorder, GERD, renal failure, and arthritis who presented to the emergency room on [facility]03/[facility] for evaluation of altered mental status. Upon review of the medical records from the jail facility, it is noted he had a right lower lobe pneumonia diagnosed mid May. Head CT showed no acute infarct, acute hemorrhage, mass effect, or extra-axial fluid collection but scattered old lacunar infarcts within the bilateral basal ganglia. Mild periventricular and subcortical white matter small vessel ischemic changes bilaterally. Chest x-ray shows scattered bibasilar patchiness consistent with possible pneumonia. Per documentation : While in the ER, patient was in moderate respiratory distress with tachypnea and utilization of accessory abdominal muscles to breathe. His lung sounds are bilaterally congested and he is confused and a poor historian. His speech is slightly slurred but this is not a new finding. He was noted to be on 5 L nasal cannula with oxygen saturation of 94% in the emergency room. Patient was admitted to the ICU by the hospitalist service. He was initiated on heparin drip for suspicion of PE. He was also noted to have an elevated CPK and creatinine. His blood pressures were running high overnight. This afternoon patient developed worsening agitation and disorientation and confusion. His heparin was stopped earlier by Dr. Garcia due to low suspicion for PE. Patient developed worsening respiration status with respirations in the 30s and O2 sats in the mid 80s. Critical care medicine was consulted. Patient was emergently intubated by Dr. Elvira Gutierrez and I subsequently took over patient care. When I evaluated the patient he had been sedated for the intubation and is being placed on mechanical ventilation. History was obtained by discussion with Dr. Garcia, Dr. Gutierrez and ICU nursing staff as well as documentation in the chart. 06/05: Remains sedated, orally intubated on mechanical ventilation. 06/06: Sedated, orally intubated on mechanical ventilation. Failed C Pap trial today. Got extremely anxious on lightening sedation. 06/07 No events overnight. Sedated and intubated. Afebrile. 06/08 No events overnight. Sedated with Diprivan, Fentanyl and intubated. 06/09 Patient remains sedated and intubated. Afebrile.Did not tolerate CPAP trials yesterday. 06/10 Patient is sedated with Fentanyl and Diprivan. Afebrile. Did not tolerate CPAP yesterday as he became restless, agitated and tachycardic. 06/11 Patient remains sedated and intubated. Spiked fever with Tmax 101.1 06/12 No events overnight. Sedated and intubated. Afebrile. 06/13 Patient remains intubated and sedated with Diprivan, fentanyl in addition he is on Precedex drip. T:100.0 06/14 Patient remains sedated and intubated. Afebrile. Did not tolerate CPAP trials yesterday as he became tahypenic, tachycardic and restless. 06/15: agitation persists. respiratory failure persists. severely volume overloaded. has been intubated for almost 2 weeks. may require trach. CT abd/ pelvis without overt acute disease. no other source for fungemia. 06/16: s/p trach yesterday. no significant changes. 06/17: plan for PEG today. agitation persists with significant delirium. no other significant changes. 06/18: s/p PEG placement. weaning off sedation. still failing cpap trials. 06/19: cannot wean off precedex: agitated delirium persists. also still failing cpap trials. 06/20 No events overnight. On Precedex drip for agitation. T: 100.1 last night. 06/21 No events overnight. Remains on Precedex drip. Afebrile. 06/22 Patient is sedated with Fentanyl and Precedex. Afebrile. For MRI brain today. 06/23 Patient became hypotensive overnight and had episode of desaturation with says in mid 80's. Given 500ml 5% Albumin now off sedation ( Fentanyl and Precedex held). BP is better. In addition he was given Dulcolax suppos. and Mg citrate now having BM's. KUB this morning showed diffuse mild gaseous distention of bowel. FIO2 requirements is better now on 50% FIO2 with PEEP: 10 from FIO2 75 % overnight. CXR unchanged ( Consolidation LLL and Atelectasis right lung base) . T:99.9 06/24: Remains on mechanical ventilation via tracheostomy. CT abdomen pelvis done on 06/23 revealed pneumatosis involving cecum and transverse colon suggesting ischemic colitis. Gen. surgery consulted and patient evaluated by Dr. Monroe today who recommends medical management at this time with IV fluids and continuation of antibiotics. Patient not tolerating tube feeds and has abdominal distention. Maintaining blood pressure currently. 06/25: Remains on mechanical ventilation via tracheostomy. Does not appear to be in any acute distress. Still nothing by mouth. Being followed by general surgery for pneumatosis involving cecum and transverse colon. 06/26: Remains on mechanical ventilation via tracheostomy. Awake. Denies abdominal pain this morning. Has bowel sounds. Abdominal less distended. 06/27: no improvements. afebrile. restarting tube feeds slowly. 06/28: tube feeds held overnight for high residuals. reglan iv started. tolerated t-piece yesterday for short period. 06/29: In bed, awake and alert. On mechanical ventilation via tracheostomy. Not tolerating tube feeds with high residuals from PEG tube on suction. 06/30: Awake and alert. Denies any abdominal pain. Bilious emesis overnight with about 2200 cc suctioned out via PEG tube in last 24 hours. Being scheduled for colonoscopy by GI 07/01: Became tachypneic this morning with respiratory rate in the 40s. O2 sats remained in the 90s. Had to resume sedation with Versed and patient was placed back on PRBC mode mechanical ventilation. Chest x-ray done this morning shows bibasilar infiltrates, no pneumothorax or atelectasis noted. Became hypotensive requiring Levophed 2 mics per minute. Still not tolerating tube feeds and PEG tube remains to suction. Started on PPN yesterday. PICC line placed yesterday. 07/02: No intervention per general surgery Dr. Monroe. No intervention per GI which has signed off. Instructed to possibly begin trickle feeds 07/03: Approximally 900 cc of bilious fluid from gastric contents in the last 12 hours overnight. During the day last 12 hours approximately 300 cc of bilious gastric output. Patient was started on erythromycin 200 mg every 6 hours. Plan for repeat KUB in am . Patient continues on TPN 07/04: Last 24 hours, gastric output significantly decreased. GI plans for clamping of the G-tube today with initiation of trickle feeds in a.m..Plan for possibly performing endoscopy early next week under general anesthesia/ in the OR. Patient continues to have stool output. KUB slightly shows slight improvement in small bowel dilatation. 07/05:Trickle feeds initiated early this am., Per GI. Hemoglobin stable. Patient remains sedated. Objective Vital Signs Date Time Temp Pulse Resp B/P (MAP) Pulse Ox O2 Delivery O2 Flow Rate FiO2 07/05/17 16:00 68 07/05/17 16:00 50 07/05/17 16:00 98.5 34 147/71 (96) 97 07/02/17 09:30 Ventilator Intake and Output 07/05/17 07/05/17 07/06/17 08:00 16:00 00:00 Intake Total 60 ml 1455.1 ml Output Total 2175 ml Balance -2115 ml 1455.1 ml Result Diagram: 07/05/17 0500 07/05/17 0500 Imaging Last 48 hours Impressions Abdomen X-Ray 06/24/17 0600 Signed Impressions: Service Date/Time: Saturday, June 24, 2017 03:14 - CONCLUSION: Dilated transverse colon and no definite pneumatosis intestinalis or technique, however the patient's prior CT examination was suggestive of pneumatosis. Domingo Pollack MD Chest X-Ray 06/24/17 0000 Signed Impressions: Service Date/Time: Saturday, June 24, 2017 03:08 - CONCLUSION: Bibasilar atelectasis and/or infiltrate is seen. Domingo Pollack MD Chest X-Ray 06/23/17 0000 Signed Impressions: Service Date/Time: Friday, June 23, 2017 03:45 - CONCLUSION: No significant interval change Arvind Hernandez MD CT Angiography 06/23/17 0000 Signed Impressions: Service Date/Time: Friday, June 23, 2017 20:34 - CONCLUSION: 1. No evidence of pulmonary embolus. 2. Increased patchy bilateral pulmonary consolidation with mild thin-walled cavitation of focal consolidation in the right upper lobe. This finding could be related consolidation of an area of long with emphysema involvement. 3. Mild to moderate upper lobe pulmonary parenchymal emphysema is seen. Rosas Rowell MD Abdomen/Pelvis CT 06/23/17 0000 Signed Impressions: Service Date/Time: Friday, June 23, 2017 20:34 - CONCLUSION: 1. Bowel wall pneumatosis involving the cecum and proximal transverse colon. Findings are suspicious for ischemic colitis. Surrounding inflammatory change in the intra-abdominal fat. No portal venous gas or free air identified. 2. Prominent bilateral lower lobe pulmonary consolidation. Rosas Rowell MD Abdomen X-Ray 06/23/17 0000 Signed Impressions: Service Date/Time: Friday, June 23, 2017 03:51 - CONCLUSION: Diffuse mild gaseous distention of bowel Arvind Hernandez MD Last Impressions Chest X-Ray 06/23/17 0000 Signed Impressions: Service Date/Time: Friday, June 23, 2017 03:45 - CONCLUSION: No significant interval change Arvind Hernandez MD Abdomen X-Ray 06/23/17 0000 Signed Impressions: Service Date/Time: Friday, June 23, 2017 03:51 - CONCLUSION: Diffuse mild gaseous distention of bowel Arvind Hernandez MD Brain MRI 06/22/17 0000 Signed Impressions: Service Date/Time: Thursday, June 22, 2017 12:10 - CONCLUSION: All ischemic changes, negative for acute ischemic event. Negative for parenchymal hemorrhage. Usman Pimentel MD FACR Abdomen/Pelvis CT 06/14/17 0000 Signed Impressions: Service Date/Time: Wednesday, June 14, 2017 22:32 - CONCLUSION: 1. Increasing basilar lung consolidation since chest CT from June 04. 2. Mild ileus. No bowel obstruction, free air or free fluid. 3. Left hip replacement. Advanced osteoarthritis right hip. NG in stomach. Rectal tube present. Humphrey Weston MD Head CT 06/04/17 0000 Signed Impressions: Service Date/Time: Sunday, June 04, 2017 18:46 - CONCLUSION: 1. No significant change compared to 06/03/17. 2. No acute infarct, acute hemorrhage , mass effect or extra-axial fluid collection. 3. Scattered old lacunar infarcts within the bilateral basal ganglia. 4. Mild periventricular and subcortical white matter small vessel ischemic changes bilaterally. 5. Old right posterior parietal infarct. 6. Chronic opacification of right mastoid air cells. Mckay Stone MD Chest CT 06/04/17 0000 Signed Impressions: Service Date/Time: Sunday, June 04, 2017 18:49 - CONCLUSION: 1. Right mid lung field and posterior bibasilar patchiness consistent with probable areas of pneumonia and/or atelectasis. Clinical correlation is recommended. 2. Tiny bilateral pleural effusions. 3. Cardiomegaly and coronary artery calcifications. 4. Minimal scattered emphysematous changes bilaterally. Mckay Stone MD Objective Remarks GENERAL: Patient is 61 yo gentleman on ventilator via trach, currently on CPAP SKIN: Warm and dry. HEAD: Normocephalic. EYES: No scleral icterus. No injection or drainage. NECK: trachea midline. No JVD. + Trach CARDIOVASCULAR: Regular rate and rhythm. RESPIRATORY: equal chest rise. 40% fio2. Clear to auscultation GASTROINTESTINAL: Abdomen soft, protuberant non-tender, minimally distended, bowel sounds present. MUSCULOSKELETAL: No cyanosis, or edema. Neuro: Off sedation, follows simple commands intermittently. A/P Assessment and Plan Assessment: 61yM with history of schizoaffective d/o and bipolar d/o who presented with acute hypoxic respiratory failure and now fungemia without overt source. Not improving on pathway. No meaningful improvements over last 2 weeks. s/p trach 06/15 and PEG 06/17. remains off pathway. needs long-term acute care level of rehabilitation. tube feed intolerance persists. has been without nutrition since 06/24. Started on PPN 06/30 Plan: Neuro: Acute Metabolic Encephalopathy Agitated Delirium - improving. Schizoaffective disorder/bipolar disorder History of alcohol abuse History of CVA Monitor neuro status. Resumed sedation with Versed gtt on 07/01 MRI brain 06/22: No acute ischemic events, no hemorrhage On Lactulose level 30ml TID, Ammonia level slightly elevated 42. EEG showed mod. encephalopathy Neuro is following. Dr. Rosibel Cheatham 10mg IM q12h prn for agitation CV: Uncontrolled hypertension - resolved. hyperlipidemia Monitor HR and BP keep MAP>65mmHg Hold antihypertensive meds ( Norvasc 5mg daily, clonidine 0.3mg po q8h, Lopressor 50mg Q12) 2-D echo with normal LV/RV function Pulmo: Acute respiratory failure requiring mechanical ventilation - persistent. COPD exacerbation Resolving community acquired pneumonia Intubated and placed on mechanical ventilation on 06/04. Continue with vent support keep sat >92%. Vent bundle, bronchodilators, on prednisone taper. On PRVC CTA chest negative for PE. trach 06/[address] Sapp/Alexander continue daily SBTs. t-piece trials if tolerated. Continue CPAP trials GI/liver: GERD Acute protein calorie malnutrition- severe 06/23 KUB abdomen: Mild gaseous distention of bowel Ct abd/pelvis 06/23: Pneumatosis involving cecum and transverse colon concerning for ischemia. C. Diff negative hold bowel regimen. Surgery following patient for ischemic colitis- no surgical intervention recommended at this time and they have signed off. I discussed case with Dr. Anival Madden covering for Dr. Monroe on 06/30 as patient continues to have ileus with bilious output from PEG tube and not tolerating tube feeds. hold tube feeds, keep reglan iv. restart tube feeds 06/29 after 24h of reglan. having regular bowel movements. passing flatus. Consulted GI and view of ileus for evaluation of ileus and ischemic colitis. They're planning colonoscopy for further evaluation. Started PPN on 06/30 as unable to tolerate PEG tube feeds. PICC line placed and was switched to TPN on 07/01 KUB done on 06/29 with dilated small and large bowel loops. 07/02: Discussed with Dr. Caraballo requested to restart tube feeds. Neurosurgery has signed off Follow-up KUB -slight improvement in dilated small bowel. No pneumatosis 07/04 Erythromycin 200 mg every 6 hours IV started , patient continues on metoclopramide, PEG tube clamped. Trickle feeds initiated , minimal residuals Renal/: ROSENDO/ CKD - resolved. Rhabdomyolysis - resolved. Acute intravascular volume overload- resolved. Metabolic alkalosis- resolving. Monitor renal function, electrolytes replacement per protocol. saline lock ivf. l ID: Fungemia- resolved. Community Acquired Pneumonia- resolved. Ischemic colitis Sepsis [facility] Associated pneumonia with pseudomonas/e.coli completed full 14 day course of micagunfin for fungemia. Continue Zosyn. Micafungin added per ID CT abdomen pelvis on 06/23 shows pneumatosis involving cecum and transverse colon consistent with ischemic colitis. Patient evaluated by general surgery Dr. Monroe who at this time recommends continuing IV fluids and antibiotics and he will be available for surgery if patient develops evidence of peritonitis or worsens clinically. ID is following Sputum cx: E.coli on 06/04, sputum 06/10: normal resp tamara BC 06/14, 06/19 : NGTD, Sputum cx 06/21: E.coli, Pseudomonas Endocrine: Hyperglycemia of critical illness SSI medium scale, q4h Heme: Anemia secondary to chronic disease Monitor CBC. Prophylaxis: Pepcid/SCDs. SQ Lovenox Lines: Right sided PICC line placed 06/30 Discussed with [employer], discussed with GI my billing statement This patient remains critically ill with one or more organ systems which are or may become a threat to life. I have spent in excess of 30 minutes discontinuously in the care and management of this patient. This time is exclusive of procedures, and includes, but is not limited to, evaluation of the patient, review of the medical record, discussions with family, consultants, nursing staff, or respiratory therapy, and documentation in the medical record. Physician Elvira Null MD Jul 05, 2017 18:34
--- NOTE | 2017-07-05 19:06 | HHI.IDPN ---
Subjective Subjective Remarks afebrile On rate, apperas totally dissynchronised, but sats are 100% sedated trickle feeds started Antibiotics Zosyn: started 06/24 Micafungin: stopped Lines PIV Past Medical History COPD Hypertension Hyperlipidemia CVA Schizoaffective disorder Bipolar disorder GERD Acute renal failure Arthritis Alcohol withdrawal seizures Past Surgical History Left partial pneumonectomy Left hip surgery Allergies: Coded Allergies: hydrochlorothiazide (Unverified Allergy, Intermediate, EFFECTS HIS SODIUM LEVEL, 02/12/17) PT STATES HE IS NOT ALLERGIC codeine (Unverified Adverse Reaction, Severe, 02/12/17) PT STATES HE IS NOT ALLERGIC Objective . Vital Signs Date Time Temp Pulse Resp B/P (MAP) Pulse Ox O2 Delivery O2 Flow Rate FiO2 07/05/17 18:00 66 07/05/17 16:00 68 07/05/17 16:00 50 07/05/17 16:00 98.5 68 34 147/71 (96) 97 07/05/17 15:51 99 50 07/05/17 14:00 66 07/05/17 12:00 98.6 68 37 131/71 (91) 97 07/05/17 12:00 68 07/05/17 12:00 50 07/05/17 11:32 99 50 07/05/17 10:00 74 07/05/17 08:34 100 50 07/05/17 08:00 69 07/05/17 08:00 98.6 69 33 122/74 (90) 100 07/05/17 08:00 50 07/05/17 06:00 71 07/05/17 04:10 98 50 07/05/17 04:00 98.0 81 30 138/77 (97) 99 07/05/17 04:00 81 07/05/17 04:00 50 07/05/17 02:00 68 07/05/17 01:06 99 50 07/05/17 00:00 50 07/05/17 00:00 65 07/05/17 00:00 98.1 65 30 116/61 (79) 97 07/04/17 22:00 68 07/04/17 20:22 99 50 07/04/17 20:00 67 07/04/17 20:00 50 07/04/17 20:00 98.3 67 35 119/65 (83) 100 07/05/17 07/05/17 07/06/17 15:00 23:00 07:00 Intake Total 1455.1 ml 888 ml Output Total 2600 ml Balance 1455.1 ml -1712 ml IV Total 1455.1 ml 479 ml Tube Feeding 66 ml TPN/PPN 343 ml Output Urine Total 2600 ml # Bowel Movements 0 . Laboratory Tests Test 07/04/17 04:45 07/05/17 05:00 White Blood Count 8.3 TH/MM3 7.8 TH/MM3 Red Blood Count 2.63 MIL/MM3 2.63 MIL/MM3 Hemoglobin 7.8 GM/DL 7.8 GM/DL Hematocrit 23.2 % 23.3 % Mean Corpuscular Volume 88.2 FL 88.4 FL Mean Corpuscular Hemoglobin 29.8 PG 29.7 PG Mean Corpuscular Hemoglobin Concent 33.8 % 33.6 % Red Cell Distribution Width 14.9 % 15.4 % Platelet Count 285 TH/MM3 286 TH/MM3 Mean Platelet Volume 7.4 FL 7.3 FL Neutrophils (%) (Auto) 72.4 % 71.9 % Lymphocytes (%) (Auto) 15.1 % 13.8 % Monocytes (%) (Auto) 8.9 % 9.4 % Eosinophils (%) (Auto) 3.0 % 4.1 % Basophils (%) (Auto) 0.6 % 0.8 % Neutrophils # (Auto) 6.0 TH/MM3 5.6 TH/MM3 Lymphocytes # (Auto) 1.2 TH/MM3 1.1 TH/MM3 Monocytes # (Auto) 0.7 TH/MM3 0.7 TH/MM3 Eosinophils # (Auto) 0.2 TH/MM3 0.3 TH/MM3 Basophils # (Auto) 0.0 TH/MM3 0.1 TH/MM3 CBC Comment AUTO DIFF AUTO DIFF Differential Total Cells Counted 100 100 Neutrophils % (Manual) 71 % 74 % Band Neutrophils % 7 % 5 % Lymphocytes % 6 % 12 % Monocytes % 5 % 1 % Eosinophils % 4 % 1 % Neutrophils # (Manual) 7.1 TH/MM3 6.6 TH/MM3 Metamyelocytes 2 % 4 % Myelocytes 3 % 2 % Promyelocytes 2 % Differential Comment FINAL DIFF MANUAL FINAL DIFF MANUAL Platelet Estimate NORMAL NORMAL Platelet Morphology Comment NORMAL NORMAL Red Cell Morphology Comment NORMAL NORMAL Basophils % 1 % Laboratory Tests Test 07/04/17 04:45 07/05/17 05:00 Blood Urea Nitrogen 12 MG/DL 10 MG/DL Creatinine 0.65 MG/DL 0.60 MG/DL Random Glucose 317 MG/DL 356 MG/DL Calcium Level 7.6 MG/DL 7.8 MG/DL Sodium Level 134 MEQ/L 137 MEQ/L Potassium Level 3.6 MEQ/L 3.6 MEQ/L Chloride Level 103 MEQ/L 105 MEQ/L Carbon Dioxide Level 21.0 MEQ/L 24.2 MEQ/L Anion Gap 10 MEQ/L 8 MEQ/L Estimat Glomerular Filtration Rate 125 ML/MIN 137 ML/MIN Microbiology Date/Time Source Procedure Growth Status 07/05/17 09:30 Sputum Expectorated Sputum Gram Stain Pending Received 07/05/17 09:30 Sputum Expectorated Sputum Sputum Culture Pending Received Imaging Last Impressions Chest X-Ray 07/04/17 06 Signed Impressions: Service Date/Time: July 03:32 - CONCLUSION: Unchanged bibasilar infiltrates. Yuri Isidro Jr., MD Abdomen X-Ray 07/04/17 06 Signed Impressions: Service Date/Time: July 03:35 - CONCLUSION: Dilated small bowel has improved slightly from the prior study. Yuri Isidro Jr., MD CT Angiography 07/01/17 0000 Signed Impressions: Service Date/Time: Saturday, July 01, 2017 23:54 - CONCLUSION: 1. Study limited by motion. 2. No pulmonary emboli. 3. Worsening consolidation within the right upper lobe. Infectious etiology suspected. 4. Small bilateral pleural effusions and associated passive atelectasis. This is new. 5. Emphysematous changes. 6. 6 mm left upper lobe pulmonary nodule. Yuri Isidro Jr., MD Abdomen/Pelvis CT 07/01/17 0000 Signed Impressions: Service Date/Time: Saturday, July 01, 2017 23:54 - CONCLUSION: 1. Breathing degraded study. 2. Dilatation of proximal jejunal loops which slowly taper. No obstructing mass or lesion. This could relate to a focal ileus. I cannot completely exclude a bowel obstruction. Small amount of free fluid. 3. Mild inflammatory change involving the mesentery adjacent to the ascending colon has improved somewhat. No pneumatosis involving the bowel observed. Yuri Isidro Jr., MD Brain MRI 06/22/17 0000 Signed Impressions: Service Date/Time: Thursday, June 22, 2017 12:10 - CONCLUSION: All ischemic changes, negative for acute ischemic event. Negative for parenchymal hemorrhage. Usman Pimentel MD FACR Head CT 06/04/17 0000 Signed Impressions: Service Date/Time: Sunday, June 04, 2017 18:46 - CONCLUSION: 1. No significant change compared to 06/03/17. 2. No acute infarct, acute hemorrhage , mass effect or extra-axial fluid collection. 3. Scattered old lacunar infarcts within the bilateral basal ganglia. 4. Mild periventricular and subcortical white matter small vessel ischemic changes bilaterally. 5. Old right posterior parietal infarct. 6. Chronic opacification of right mastoid air cells. Mckay Stone MD Chest CT 06/04/17 0000 Signed Impressions: Service Date/Time: Sunday, June 04, 2017 18:49 - CONCLUSION: 1. Right mid lung field and posterior bibasilar patchiness consistent with probable areas of pneumonia and/or atelectasis. Clinical correlation is recommended. 2. Tiny bilateral pleural effusions. 3. Cardiomegaly and coronary artery calcifications. 4. Minimal scattered emphysematous changes bilaterally. Mckay Stone MD Physical Exam GENERAL: Sedated, on the vent, NAD. SKIN: Cool, dry. No generalized rash EYES: Pupils equal and round and reactive. Extraocular motions intact. No scleral icterus. No injection or drainage. NECK: trach in place , site ok CARDIOVASCULAR: Regular rate and rhythm without murmurs, gallops, or rubs. No JVD. Peripheral pulses symmetric. RESPIRATORY/CHEST: Coarse BS bilaterally GASTROINTESTINAL: Abdomen, less distended no tenderness, not guarding, BS hypoactive. GENITOURINARY: Without palpable bladder distension. condom catheter in place with clear yellow MUSCULOSKELETAL: Extremities without clubbing, cyanosis. (+) pedal edema. No calf tenderness. No mottling or clubbing. NEUROLOGICAL: moves all 4 extremities, awake, alert, follows commands PSYCHIATRIC: cooperative LINE: No evidence of infection Assessment & Plan Remarks IMPRESSION Mental status change, PNA, E.coli, S/P Rx Acute VDRF, failure to wean Multiple med problems Leukocytosis, better Abdominal distention, diarrhea - C.diff negative - likely ischemic colitis - CT better as far as pneumatosis C glabrata sepsis, S/P Rx New HCAP PNA (PSAE and E coli in sputum) both S to ZOsyn PLAN Continue Zosyn to cover both PSAE and intraabd aerobic/anaerobic tamara Follow temps Monitor progress Weaning per CCM Ml Wiseman MD Jul 05, 2017 19:06
[2017-07-05] MEDS: FAT EMULSION 20% INJ 250 ML (Daily over 8 hours) IV-CENTRAL SCH (20:17)
[2017-07-06] VITALS (19 sets, daily range): BP systolic 94–174; BP diastolic 55–92; PULSE 54–79; RESP 24–37; TEMP 98–98.8; O2SAT 95–100
[2017-07-06] MEDS: ERYTHROMYCIN IV SCH ×5 (01:51→23:56)
[2017-07-06] MEDS: hydrALAZINE HCL 20 MG/ML VIAL IV PUSH PRN (01:51)
[2017-07-06] MEDS: PIPERACIL-TAZO 4.5 GM PREMIX 100 ML IV SCH ×4 (03:00→20:42)
[2017-07-06] MEDS: MIDAZOLAM 100 MG/NS 100 ML DRIP Premix IV PRN ×3 (03:00→23:18)
[2017-07-06] MEDS: LORazepam 2 MG/ML VIAL IV PRN (03:29)
[2017-07-06] MEDS: RESP: ALBUTEROL 2.5 MG/IPRATROPIUM 0.5 MG NEB (SCH) NEB ×2 (03:29→09:07)
[2017-07-06] MEDS: HYDROmorphone HCL PF 2 MG/ML VIAL IV PRN ×3 (03:31→20:42)
[2017-07-06] MEDS: CHLORHEXIDINE GLUCONATE 2 % 1 PACK (2 CLOTHS) TOP SCH (04:00)
[2017-07-06] MEDS: INSULIN NovoLIN REGULAR SUPPLEMENTAL SCALE SQ SCH ×6 (04:00→23:55)
[2017-07-06 05:44] LABS: HEMATOCRIT 23.8 % (39.0-51.0); HEMOGLOBIN 8.1 GM/DL (13.0-17.0); MEAN CELL VOLUME 86.7 FL (80.0-100.0); MEAN CORPUSCULAR HEMOGLOBIN 29.4 PG (27.0-34.0); MEAN PLATELET VOLUME 7.1 FL (7.0-11.0); PLATELET COUNT 302 TH/MM3 (150-450); RED BLOOD COUNT 2.74 MIL/MM3 (4.50-5.90); WHITE BLOOD COUNT 9.5 TH/MM3 (4.0-11.0)
[2017-07-06 05:55] LABS: BICARBONATE 24.6 MEQ/L (21.0-32.0); CALCIUM 7.9 MG/DL (8.5-10.1); CREATININE 0.54 MG/DL (0.60-1.30); MAGNESIUM 1.4 MG/DL (1.5-2.5); PHOSPHORUS 2.7 MG/DL (2.5-4.9)
[2017-07-06] MEDS: DEXT 5%-NACL 0.9% 1000 ML INJ 1,000 ML IV SCH ×2 (06:10→22:23)
[2017-07-06] MEDS: METOCLOPRAMIDE HCL 10 MG/2 ML VIAL IV PUSH SCH ×3 (06:38→20:43)
[2017-07-06] MEDS: MULTIVITAMIN INJ 5 ML, FOLIC ACID INJ 0.5 MG in AMINO ACID IN D5W W/ELECTROLYT 1,000 ML IV-CENTRAL SCH ×6 (07:27→18:51)
[2017-07-06] MEDS: DEXMEDETOMIDINE INJ 1,000 MCG in SODIUM CHLOR 0.9% 250 ML INJ 240 ML IV PRN ×2 (07:44→18:02)
[2017-07-06] MEDS: CHLORHEXIDINE 0.12% (ORAL KIT) 15 ML CUP MT SCH ×2 (07:45→20:42)
[2017-07-06] MEDS: SODIUM CHLORIDE 0.9% FLUSH 10 ML FLUSH IV FLUSH SCH ×3 (08:04→20:43)
[2017-07-06] MEDS: NUTRISOURCE FIBER POWDER 1 PACK G-TUBE SCH ×2 (08:04→20:43)
[2017-07-06] MEDS: guanFACINE HCL 1 MG TAB PO SCH ×2 (08:04→20:43)
[2017-07-06] MEDS: INSULIN DETEMIR 100 UNITS/ML VIAL SQ SCH ×2 (08:04→20:42)
[2017-07-06] MEDS: SENNOSIDES SYRUP 8.8 MG/5 ML CUP PO SCH (08:04)
[2017-07-06 09:36] LABS: BILIRUBIN, URINE NEG (NEG); BLOOD, URINE TRACE (NEG); GLUCOSE,URINE NEG (NEG); KETONE, URINE NEG (NEG); NITRITE,URINE NEG (NEG); URINE COLOR LIGHT-YELLOW (YELLW/STRAW); URINE LEUKOCYTE ESTERASE NEG (NEG)
[2017-07-06 09:47] LABS: CREATININE, RANDOM URINE 27.3 MG/DL
[2017-07-06] MEDS: FAMOTIDINE 20 MG/2 ML VIAL IV PUSH SCH ×2 (11:57→23:19)
--- NOTE | 2017-07-06 16:50 | HHI.CCPN ---
Subjective Remarks/Hospital Course 06/04: Mr. Reilly is a 61-year-old male with a history of COPD, hypertension, hyperlipidemia, CVA, schizoaffective disorder, bipolar disorder, GERD, renal failure, and arthritis who presented to the emergency room on 06/03/2017 from a halfway facility for evaluation of altered mental status. Upon review of the medical records from the halfway facility, it is noted he had a right lower lobe pneumonia diagnosed mid May. Head CT showed no acute infarct, acute hemorrhage, mass effect, or extra-axial fluid collection but scattered old lacunar infarcts within the bilateral basal ganglia. Mild periventricular and subcortical white matter small vessel ischemic changes bilaterally. Chest x-ray shows scattered bibasilar patchiness consistent with possible pneumonia. Per documentation : While in the ER, patient was in moderate respiratory distress with tachypnea and utilization of accessory abdominal muscles to breathe. His lung sounds are bilaterally congested and he is confused and a poor historian. His speech is slightly slurred but this is not a new finding. He was noted to be on 5 L nasal cannula with oxygen saturation of 94% in the emergency room. Patient was admitted to the ICU by the hospitalist service. He was initiated on heparin drip for suspicion of PE. He was also noted to have an elevated CPK and creatinine. His blood pressures were running high overnight. This afternoon patient developed worsening agitation and disorientation and confusion. His heparin was stopped earlier by Dr. Garcia due to low suspicion for PE. Patient developed worsening respiration status with respirations in the 30s and O2 sats in the mid 80s. Critical care medicine was consulted. Patient was emergently intubated by Dr. Elvira Gutierrez and I subsequently took over patient care. When I evaluated the patient he had been sedated for the intubation and is being placed on mechanical ventilation. History was obtained by discussion with Dr. Garcia, Dr. Gutierrez and ICU nursing staff as well as documentation in the chart. 06/05: Remains sedated, orally intubated on mechanical ventilation. 06/06: Sedated, orally intubated on mechanical ventilation. Failed C Pap trial today. Got extremely anxious on lightening sedation. 06/07 No events overnight. Sedated and intubated. Afebrile. 06/08 No events overnight. Sedated with Diprivan, Fentanyl and intubated. 06/09 Patient remains sedated and intubated. Afebrile.Did not tolerate CPAP trials yesterday. 06/10 Patient is sedated with Fentanyl and Diprivan. Afebrile. Did not tolerate CPAP yesterday as he became restless, agitated and tachycardic. 06/11 Patient remains sedated and intubated. Spiked fever with Tmax 101.1 06/12 No events overnight. Sedated and intubated. Afebrile. 06/13 Patient remains intubated and sedated with Diprivan, fentanyl in addition he is on Precedex drip. T:100.0 06/14 Patient remains sedated and intubated. Afebrile. Did not tolerate CPAP trials yesterday as he became tahypenic, tachycardic and restless. 06/15: agitation persists. respiratory failure persists. severely volume overloaded. has been intubated for almost 2 weeks. may require trach. CT abd/ pelvis without overt acute disease. no other source for fungemia. 06/16: s/p trach yesterday. no significant changes. 06/17: plan for PEG today. agitation persists with significant delirium. no other significant changes. 06/18: s/p PEG placement. weaning off sedation. still failing cpap trials. 06/19: cannot wean off precedex: agitated delirium persists. also still failing cpap trials. 06/20 No events overnight. On Precedex drip for agitation. T: 100.1 last night. 06/21 No events overnight. Remains on Precedex drip. Afebrile. 06/22 Patient is sedated with Fentanyl and Precedex. Afebrile. For MRI brain today. 06/23 Patient became hypotensive overnight and had episode of desaturation with says in mid 80's. Given 500ml 5% Albumin now off sedation ( Fentanyl and Precedex held). BP is better. In addition he was given Dulcolax suppos. and Mg citrate now having BM's. KUB this morning showed diffuse mild gaseous distention of bowel. FIO2 requirements is better now on 50% FIO2 with PEEP: 10 from FIO2 75 % overnight. CXR unchanged ( Consolidation LLL and Atelectasis right lung base) . T:99.9 06/24: Remains on mechanical ventilation via tracheostomy. CT abdomen pelvis done on 06/23 revealed pneumatosis involving cecum and transverse colon suggesting ischemic colitis. Gen. surgery consulted and patient evaluated by Dr. Monroe today who recommends medical management at this time with IV fluids and continuation of antibiotics. Patient not tolerating tube feeds and has abdominal distention. Maintaining blood pressure currently. 06/25: Remains on mechanical ventilation via tracheostomy. Does not appear to be in any acute distress. Still nothing by mouth. Being followed by general surgery for pneumatosis involving cecum and transverse colon. 06/26: Remains on mechanical ventilation via tracheostomy. Awake. Denies abdominal pain this morning. Has bowel sounds. Abdominal less distended. 06/27: no improvements. afebrile. restarting tube feeds slowly. 06/28: tube feeds held overnight for high residuals. reglan iv started. tolerated t-piece yesterday for short period. 06/29: In bed, awake and alert. On mechanical ventilation via tracheostomy. Not tolerating tube feeds with high residuals from PEG tube on suction. 06/30: Awake and alert. Denies any abdominal pain. Bilious emesis overnight with about 2200 cc suctioned out via PEG tube in last 24 hours. Being scheduled for colonoscopy by GI 07/01: Became tachypneic this morning with respiratory rate in the 40s. O2 sats remained in the 90s. Had to resume sedation with Versed and patient was placed back on PRBC mode mechanical ventilation. Chest x-ray done this morning shows bibasilar infiltrates, no pneumothorax or atelectasis noted. Became hypotensive requiring Levophed 2 mics per minute. Still not tolerating tube feeds and PEG tube remains to suction. Started on PPN yesterday. PICC line placed yesterday. 07/02: No intervention per general surgery Dr. Monroe. No intervention per GI which has signed off. Instructed to possibly begin trickle feeds 07/03: Approximally 900 cc of bilious fluid from gastric contents in the last 12 hours overnight. During the day last 12 hours approximately 300 cc of bilious gastric output. Patient was started on erythromycin 200 mg every 6 hours. Plan for repeat KUB in am . Patient continues on TPN 07/04: Last 24 hours, gastric output significantly decreased. GI plans for clamping of the G-tube today with initiation of trickle feeds in a.m..Plan for possibly performing endoscopy early next week under general anesthesia/ in the OR. Patient continues to have stool output. KUB slightly shows slight improvement in small bowel dilatation. 07/05:Trickle feeds initiated early this am., Per GI. Hemoglobin stable. Patient remains sedated. 07/06: Continues to tolerate tube feeds at 10 cc/an hour. 90 cc residual and approximately 24 hours. UA resulted noted trace occult blood. Will continue to monitor, serial hemoglobin and hematocrit. Patient continues on TPN. Patient continues to fail CPAP trials. Objective Vital Signs Date Time Temp Pulse Resp B/P (MAP) Pulse Ox O2 Delivery O2 Flow Rate FiO2 07/06/17 15:09 97 40 07/06/17 14:00 59 07/06/17 12:00 98.2 24 124/81 (95) 07/02/17 09:30 Ventilator Intake and Output 07/06/17 07/06/17 07/07/17 08:00 16:00 00:00 Intake Total 1448.1 ml 400 ml Output Total 2150 ml Balance -701.9 ml 400 ml Result Diagram: 07/06/17 0500 07/06/17 0500 Imaging Last Impressions Chest X-Ray 07/04/17 06 Signed Impressions: Service Date/Time: July 03:32 - CONCLUSION: Unchanged bibasilar infiltrates. Yuri Isidro Jr., MD Abdomen X-Ray 07/04/17 06 Signed Impressions: Service Date/Time: July 03:35 - CONCLUSION: Dilated small bowel has improved slightly from the prior study. Yuri Isidro Jr., MD CT Angiography 07/01/17 0000 Signed Impressions: Service Date/Time: Saturday, July 01, 2017 23:54 - CONCLUSION: 1. Study limited by motion. 2. No pulmonary emboli. 3. Worsening consolidation within the right upper lobe. Infectious etiology suspected. 4. Small bilateral pleural effusions and associated passive atelectasis. This is new. 5. Emphysematous changes. 6. 6 mm left upper lobe pulmonary nodule. Yuri Isidro Jr., MD Abdomen/Pelvis CT 07/01/17 0000 Signed Impressions: Service Date/Time: Saturday, July 01, 2017 23:54 - CONCLUSION: 1. Breathing degraded study. 2. Dilatation of proximal jejunal loops which slowly taper. No obstructing mass or lesion. This could relate to a focal ileus. I cannot completely exclude a bowel obstruction. Small amount of free fluid. 3. Mild inflammatory change involving the mesentery adjacent to the ascending colon has improved somewhat. No pneumatosis involving the bowel observed. Yuri Isidro Jr., MD Brain MRI 06/22/17 0000 Signed Impressions: Service Date/Time: Thursday, June 22, 2017 12:10 - CONCLUSION: All ischemic changes, negative for acute ischemic event. Negative for parenchymal hemorrhage. Usman Pimentel MD FACR Head CT 06/04/17 0000 Signed Impressions: Service Date/Time: Sunday, June 04, 2017 18:46 - CONCLUSION: 1. No significant change compared to 06/03/17. 2. No acute infarct, acute hemorrhage , mass effect or extra-axial fluid collection. 3. Scattered old lacunar infarcts within the bilateral basal ganglia. 4. Mild periventricular and subcortical white matter small vessel ischemic changes bilaterally. 5. Old right posterior parietal infarct. 6. Chronic opacification of right mastoid air cells. Mckay Stone MD Chest CT 06/04/17 0000 Signed Impressions: Service Date/Time: Sunday, June 04, 2017 18:49 - CONCLUSION: 1. Right mid lung field and posterior bibasilar patchiness consistent with probable areas of pneumonia and/or atelectasis. Clinical correlation is recommended. 2. Tiny bilateral pleural effusions. 3. Cardiomegaly and coronary artery calcifications. 4. Minimal scattered emphysematous changes bilaterally. Mckay Stone MD Last 48 hours Impressions Abdomen X-Ray 06/24/17 0600 Signed Impressions: Service Date/Time: Saturday, June 24, 2017 03:14 - CONCLUSION: Dilated transverse colon and no definite pneumatosis intestinalis or technique, however the patient's prior CT examination was suggestive of pneumatosis. Domingo Pollack MD Chest X-Ray 06/24/17 0000 Signed Impressions: Service Date/Time: Saturday, June 24, 2017 03:08 - CONCLUSION: Bibasilar atelectasis and/or infiltrate is seen. Domingo Pollack MD Chest X-Ray 06/23/17 0000 Signed Impressions: Service Date/Time: Friday, June 23, 2017 03:45 - CONCLUSION: No significant interval change Arvind Hernandez MD CT Angiography 06/23/17 0000 Signed Impressions: Service Date/Time: Friday, June 23, 2017 20:34 - CONCLUSION: 1. No evidence of pulmonary embolus. 2. Increased patchy bilateral pulmonary consolidation with mild thin-walled cavitation of focal consolidation in the right upper lobe. This finding could be related consolidation of an area of long with emphysema involvement. 3. Mild to moderate upper lobe pulmonary parenchymal emphysema is seen. Rosas Rowell MD Abdomen/Pelvis CT 06/23/17 0000 Signed Impressions: Service Date/Time: Friday, June 23, 2017 20:34 - CONCLUSION: 1. Bowel wall pneumatosis involving the cecum and proximal transverse colon. Findings are suspicious for ischemic colitis. Surrounding inflammatory change in the intra-abdominal fat. No portal venous gas or free air identified. 2. Prominent bilateral lower lobe pulmonary consolidation. Rosas Rowell MD Abdomen X-Ray 06/23/17 0000 Signed Impressions: Service Date/Time: Friday, June 23, 2017 03:51 - CONCLUSION: Diffuse mild gaseous distention of bowel Arvind Hernandez MD Last Impressions Chest X-Ray 06/23/17 0000 Signed Impressions: Service Date/Time: Friday, June 23, 2017 03:45 - CONCLUSION: No significant interval change Arvind Hernandez MD Abdomen X-Ray 06/23/17 0000 Signed Impressions: Service Date/Time: Friday, June 23, 2017 03:51 - CONCLUSION: Diffuse mild gaseous distention of bowel Arvind Hernandez MD Brain MRI 06/22/17 0000 Signed Impressions: Service Date/Time: Thursday, June 22, 2017 12:10 - CONCLUSION: All ischemic changes, negative for acute ischemic event. Negative for parenchymal hemorrhage. Usman Pimentel MD FACR Abdomen/Pelvis CT 06/14/17 0000 Signed Impressions: Service Date/Time: Wednesday, June 14, 2017 22:32 - CONCLUSION: 1. Increasing basilar lung consolidation since chest CT from June 04. 2. Mild ileus. No bowel obstruction, free air or free fluid. 3. Left hip replacement. Advanced osteoarthritis right hip. NG in stomach. Rectal tube present. Humphrey Weston MD Head CT 06/04/17 0000 Signed Impressions: Service Date/Time: Sunday, June 04, 2017 18:46 - CONCLUSION: 1. No significant change compared to 06/03/17. 2. No acute infarct, acute hemorrhage , mass effect or extra-axial fluid collection. 3. Scattered old lacunar infarcts within the bilateral basal ganglia. 4. Mild periventricular and subcortical white matter small vessel ischemic changes bilaterally. 5. Old right posterior parietal infarct. 6. Chronic opacification of right mastoid air cells. Mckay Stone MD Chest CT 06/04/17 0000 Signed Impressions: Service Date/Time: Sunday, June 04, 2017 18:49 - CONCLUSION: 1. Right mid lung field and posterior bibasilar patchiness consistent with probable areas of pneumonia and/or atelectasis. Clinical correlation is recommended. 2. Tiny bilateral pleural effusions. 3. Cardiomegaly and coronary artery calcifications. 4. Minimal scattered emphysematous changes bilaterally. Mckay Stone MD Objective Remarks GENERAL: Patient is 61 yo gentleman on ventilator via trach sedated on Precedex and Versed at this time SKIN: Warm and dry. HEAD: Normocephalic. EYES: No scleral icterus. No injection or drainage. NECK: trachea midline. No JVD. + Trach CARDIOVASCULAR: Regular rate and rhythm. RESPIRATORY: equal chest rise. 40% fio2. Clear to auscultation GASTROINTESTINAL: Abdomen soft, protuberant non-tender, minimally distended, bowel sounds present. MUSCULOSKELETAL: No cyanosis, or edema. Neuro: Off sedation, follows simple commands intermittently. A/P Assessment and Plan Assessment: 61yM with history of schizoaffective d/o and bipolar d/o who presented with acute hypoxic respiratory failure and now fungemia without overt source. Not improving on pathway. No meaningful improvements over last 2 weeks. s/p trach 06/15 and PEG 06/17. remains off pathway. needs long-term acute care level of rehabilitation. tube feed intolerance persists. has been without nutrition since 06/24. Started on PPN 06/30, ->TPN 07/01 Plan: Neuro: Acute Metabolic Encephalopathy Agitated Delirium - improving. Schizoaffective disorder/bipolar disorder History of alcohol abuse History of CVA Monitor neuro status. Resumed sedation with Versed gtt on 07/01 MRI brain 06/22: No acute ischemic events, no hemorrhage Lactulose discontinued EEG showed mod. encephalopathy Neuro is following. Dr. Rosibel Cheatham 10mg IM q12h prn for agitation CV: Uncontrolled hypertension - resolved. hyperlipidemia Monitor HR and BP keep MAP>65mmHg Hold antihypertensive meds ( Norvasc 5mg daily, clonidine 0.3mg po q8h, Lopressor 50mg Q12) 2-D echo with normal LV/RV function Pulmo: Acute respiratory failure requiring mechanical ventilation - persistent. COPD exacerbation Resolving community acquired pneumonia Intubated and placed on mechanical ventilation on 06/04. Continue with vent support keep sat >92%. Vent bundle, bronchodilators, on prednisone taper On PRVC CTA chest negative for PE. trach 06/[address] Sapp/Alexander continue daily SBTs. t-piece trials if tolerated. Continue CPAP trials GI/liver: GERD Acute protein calorie malnutrition- severe 06/23 KUB abdomen: Mild gaseous distention of bowel Ct abd/pelvis 06/23: Pneumatosis involving cecum and transverse colon concerning for ischemia. C. Diff negative hold bowel regimen. Surgery following patient for ischemic colitis- no surgical intervention recommended at this time and they have signed off. I discussed case with Dr. Anival Madden covering for Dr. Monroe on 06/30 as patient continues to have ileus with bilious output from PEG tube and not tolerating tube feeds. hold tube feeds, keep reglan iv. restart tube feeds 06/29 after 24h of reglan. having regular bowel movements. passing flatus. Consulted GI and view of ileus for evaluation of ileus and ischemic colitis. They're planning colonoscopy for further evaluation. Started PPN on 06/30 as unable to tolerate PEG tube feeds. PICC line placed and was switched to TPN on 07/01 KUB done on 06/29 with dilated small and large bowel loops. 07/02: Discussed with Dr. Caraballo requested to restart tube feeds. Neurosurgery has signed off Follow-up KUB -slight improvement in dilated small bowel. No pneumatosis 07/04 Erythromycin 200 mg every 6 hours IV started , patient continues on metoclopramide, PEG tube clamped for 24 hours 07/05 Trickle feeds initiated , minimal residuals. Tentative plan for possible EGD next week per GI Renal/: ROSENDO/ CKD - resolved. Rhabdomyolysis - resolved. Acute intravascular volume overload- resolved. Metabolic alkalosis- resolving. Monitor renal function, electrolytes replacement per protocol. saline lock ivf. l ID: Fungemia- resolved. Community Acquired Pneumonia- resolved. Ischemic colitis Sepsis [facility] Associated pneumonia with pseudomonas/e.coli completed full 14 day course of micagunfin for fungemia. Continue Zosyn. Micafungin added per ID CT abdomen pelvis on 06/23 shows pneumatosis involving cecum and transverse colon consistent with ischemic colitis. Patient evaluated by general surgery Dr. Monroe who at this time recommends continuing IV fluids and antibiotics and he will be available for surgery if patient develops evidence of peritonitis or worsens clinically. ID is following Sputum cx: E.coli on 06/04, sputum 06/10: normal resp tamara BC 06/14, 06/19 : NGTD, Sputum cx 06/21: E.coli, Pseudomonas Endocrine: Hyperglycemia of critical illness SSI medium scale, q4h Heme: Anemia secondary to chronic disease Monitor CBC. Prophylaxis: Pepcid/SCDs. SQ Lovenox Lines: Right sided PICC line placed 06/30 Discussed with [facility], discussed with GI my billing statement This patient remains critically ill with one or more organ systems which are or may become a threat to life. I have spent in excess of 39 minutes discontinuously in the care and management of this patient. This time is exclusive of procedures, and includes, but is not limited to, evaluation of the patient, review of the medical record, discussions with family, consultants, nursing staff, or respiratory therapy, and documentation in the medical record. D/W [facility] at bedside (Ct), and mother Mrs. Reilly at bedside. Mother states patient would not want to be on mechanical ventilation long-term. Patient's mother also stated that the patient never wanted to be intubated, initially. Would like to discuss goals of treatment, should the patient continued to fail CPAP trials. Palliative care has been consulted to define goals of care. Physician Elvira Null MD Jul 06, 2017 16:50
[2017-07-06] MEDS: RESP: ALBUTEROL 2.5 MG/IPRATROPIUM 0.5 MG NEB (SCH) INH (19:34)
[2017-07-06] MEDS: FAT EMULSION 20% INJ 250 ML (Daily over 8 hours) IV-CENTRAL SCH (20:42)
[2017-07-07] VITALS (18 sets, daily range): BP systolic 92–141; BP diastolic 52–77; PULSE 62–95; RESP 22–31; TEMP 97.9–100.1; O2SAT 96–100
[2017-07-07] MEDS: PIPERACIL-TAZO 4.5 GM PREMIX 100 ML IV SCH ×4 (01:17→20:24)
[2017-07-07] MEDS: CHLORHEXIDINE GLUCONATE 2 % 1 PACK (2 CLOTHS) TOP SCH (04:00)
[2017-07-07] MEDS: HYDROmorphone HCL PF 2 MG/ML VIAL IV PRN ×4 (04:36→23:14)
[2017-07-07] MEDS: DEXMEDETOMIDINE INJ 1,000 MCG in SODIUM CHLOR 0.9% 250 ML INJ 240 ML IV PRN ×3 (04:36→23:14)
[2017-07-07] MEDS: INSULIN NovoLIN REGULAR SUPPLEMENTAL SCALE SQ SCH ×5 (04:36→20:24)
--- NOTE | 2017-07-07 05:02 | RADRPT ---
EXAM DATE/TIME: 07/07/2017 04:08 [facility] COMPARISON: CHEST SINGLE AP, July 04, 2017, 3:32. INDICATIONS : Shortness of breath, possible pulmonary disease. MEDICAL HISTORY : Cardiovascular disease. Hypertension Cirrhosis. Hep C CVA SURGICAL HISTORY : None. ENCOUNTER: Subsequent ACUITY: 2 weeks PAIN SCORE: Non-responsive. LOCATION: Bilateral chest FINDINGS: Single AP view of the chest. Tracheostomy tube and right-sided PICC line remain in place. Persistent bilateral pulmonary opacity left greater than right. Likely small left pleural effusion. No significa nt change. No evidence of pneumothorax. CONCLUSION: No significant interval change in left greater than right lower lung zone pulmonary parenchymal opaci ty. Rosas Rowell MD on July 07, 2017 at 5:00 Board Certified Radiologist. This report was verified electronically.
[2017-07-07] MEDS: METOCLOPRAMIDE HCL 10 MG/2 ML VIAL IV PUSH SCH ×3 (05:39→20:26)
[2017-07-07] MEDS: ERYTHROMYCIN IV SCH ×3 (05:40→18:11)
[2017-07-07 05:58] LABS: AUTOMATED NEUTROPHIL # 6.5 TH/MM3 (1.8-7.7); BASOPHIL # 0.1 TH/MM3 (0-0.2); BASOPHIL % 1.2 % (0.0-2.0); EOSINOPHIL # 0.3 TH/MM3 (0-0.4); EOSINOPHIL % 3.2 % (0.0-4.0); HEMATOCRIT 22.8 % (39.0-51.0); HEMOGLOBIN 7.7 GM/DL (13.0-17.0); LYMPH % 16.2 % (9.0-44.0); LYMPHOCYTE # 1.5 TH/MM3 (1.0-4.8); MEAN CELL VOLUME 88.2 FL (80.0-100.0); MEAN CORPUSCULAR HEMOGLOBIN 29.7 PG (27.0-34.0); MEAN CORPUSCULAR HGB CONC 33.7 % (32.0-36.0); MEAN PLATELET VOLUME 7.3 FL (7.0-11.0); MONO % 7.9 % (0.0-8.0); MONOCYTE # 0.7 TH/MM3 (0-0.9); NEUT % 71.5 % (16.0-70.0); PLATELET COUNT 346 TH/MM3 (150-450); RED BLOOD COUNT 2.58 MIL/MM3 (4.50-5.90); RED CELL DISTRIBUTION WIDTH 15.2 % (11.6-17.2)
[2017-07-07 06:01] LABS: INTERNATIONAL NORMALIZED RATIO 1.1 RATIO; PROTHROMBIN TIME - PATIENT 10.7 SEC (9.8-11.6)
[2017-07-07 06:12] LABS: ALBUMIN 1.5 GM/DL (3.4-5.0); ALKALINE PHOSPHATASE 115 U/L (45-117); ALT (GPT) 20 U/L (12-78); AST (GOT) 12 U/L (15-37); BICARBONATE 26.5 MEQ/L (21.0-32.0); BLOOD UREA NITROGEN 13 MG/DL (7-18); CALCIUM 8.1 MG/DL (8.5-10.1); CHLORIDE 101 MEQ/L (98-107); CREATININE 0.65 MG/DL (0.60-1.30); GLOMERULAR FILTRATION RATE 125 ML/MIN (>89); GLUCOSE,RANDOM 220 MG/DL (74-106); MAGNESIUM 1.6 MG/DL (1.5-2.5); PHOSPHORUS 3.1 MG/DL (2.5-4.9); SODIUM (NA) 134 MEQ/L (136-145); TOTAL BILIRUBIN ADULT 0.4 MG/DL (0.2-1.0); TOTAL PROTEIN 6.5 GM/DL (6.4-8.2); TRIGLYCERIDES 205 MG/DL (42-150)
[2017-07-07 06:44] LABS: BANDS 5 % (0-6); LYMPHOCYTES 10 % (9-44); METAMYELOCYTES 5 % (0-1); MONOCYTES 5 % (0-8); MYELOCYTES 3 % (0-0); NEUTROPHIL # MANUAL DIFF 7.3 TH/MM3 (1.8-7.7); PLASMA CELLS 1 % (0-0); POLYS (SEG NEUTROPHILS) 68 % (16-70)
[2017-07-07] MEDS: MULTIVITAMIN INJ 5 ML, FOLIC ACID INJ 0.5 MG in AMINO ACID IN D5W W/ELECTROLYT 1,000 ML IV-CENTRAL SCH ×3 (06:47)
[2017-07-07] MEDS: CHLORHEXIDINE 0.12% (ORAL KIT) 15 ML CUP MT SCH ×2 (08:06→20:26)
[2017-07-07] MEDS: SODIUM CHLORIDE 0.9% FLUSH 10 ML FLUSH IV FLUSH SCH ×3 (08:07→20:25)
[2017-07-07] MEDS: SENNOSIDES SYRUP 8.8 MG/5 ML CUP PO SCH (08:07)
[2017-07-07] MEDS: INSULIN DETEMIR 100 UNITS/ML VIAL SQ SCH ×2 (08:08→20:25)
[2017-07-07] MEDS: NUTRISOURCE FIBER POWDER 1 PACK G-TUBE SCH ×2 (08:08→20:26)
[2017-07-07] MEDS: guanFACINE HCL 1 MG TAB PO SCH ×2 (08:08→20:25)
[2017-07-07] MEDS: RESP: ALBUTEROL 2.5 MG/IPRATROPIUM 0.5 MG NEB (SCH) INH ×3 (08:22→20:08)
[2017-07-07] MEDS: FAMOTIDINE 20 MG/2 ML VIAL IV PUSH SCH ×2 (10:15→23:14)
[2017-07-07] MEDS: MIDAZOLAM 100 MG/NS 100 ML DRIP Premix IV PRN ×2 (11:39→23:27)
--- NOTE | 2017-07-07 11:47 | HHI.GIFU ---
Subjective Remarks Pt in bed, trach to vent. TF running 10ml/hr. On TPN. residuals improving. Objective Vitals I&O Vital Signs Date Time Temp Pulse Resp B/P (MAP) Pulse Ox O2 Delivery O2 Flow Rate FiO2 07/07/17 10:00 95 07/07/17 08:23 99 40 07/07/17 08:00 40 07/07/17 08:00 62 07/07/17 08:00 98.4 62 28 102/55 (71) 96 07/07/17 06:00 62 07/07/17 04:24 96 40 07/07/17 04:00 98.5 74 26 116/76 (89) 99 07/07/17 04:00 40 07/07/17 04:00 74 07/07/17 02:00 62 07/07/17 01:55 100 40 07/07/17 00:00 97.9 67 24 141/77 (98) 98 07/07/17 00:00 67 07/07/17 00:00 40 07/06/17 22:05 96 40 07/06/17 22:00 59 07/06/17 20:00 98.6 74 24 127/78 (94) 98 07/06/17 20:00 40 07/06/17 20:00 74 07/06/17 19:34 100 40 07/06/17 18:00 59 07/06/17 16:00 50 07/06/17 16:00 58 07/06/17 16:00 98.0 58 26 123/63 (83) 96 07/06/17 15:09 97 40 07/06/17 14:00 59 07/06/17 12:12 97 50 07/06/17 12:00 98.2 56 24 124/81 (95) 97 07/06/17 12:00 50 07/06/17 12:00 56 I/O 07/06/17 07/06/17 07/06/17 07/07/17 07/07/17 07/07/17 07:00 15:00 23:00 07:00 15:00 23:00 Intake Total 193 ml 1655.1 ml 1937.9 ml 2184.3 ml Output Total 2150 ml 2350 ml 1550 ml Balance -1957 ml 1655.1 ml -412.1 ml 634.3 ml IV Total 1655.1 ml 1745.9 ml 1926.3 ml Tube Feeding 133 ml 132 ml 108 ml Tube Irrigant 150 ml Other 60 ml 60 ml Output Urine Total 2150 ml 2350 ml 1550 ml # Bowel Movements 0 0 1 Laboratory Laboratory Tests Test 07/07/17 04:52 07/07/17 05:44 White Blood Count 9.0 Red Blood Count 2.58 Hemoglobin 7.7 Hematocrit 22.8 Mean Corpuscular Volume 88.2 Mean Corpuscular Hemoglobin 29.7 Mean Corpuscular Hemoglobin Concent 33.7 Red Cell Distribution Width 15.2 Platelet Count 346 Mean Platelet Volume 7.3 Neutrophils (%) (Auto) 71.5 Lymphocytes (%) (Auto) 16.2 Monocytes (%) (Auto) 7.9 Eosinophils (%) (Auto) 3.2 Basophils (%) (Auto) 1.2 Neutrophils # (Auto) 6.5 Lymphocytes # (Auto) 1.5 Monocytes # (Auto) 0.7 Eosinophils # (Auto) 0.3 Basophils # (Auto) 0.1 CBC Comment AUTO DIFF Differential Total Cells Counted 100 Neutrophils % (Manual) 68 Band Neutrophils % 5 Lymphocytes % 10 Monocytes % 5 Eosinophils % 3 Neutrophils # (Manual) 7.3 Metamyelocytes 5 Myelocytes 3 Differential Comment FINAL DIFF MANUAL Plasma Cells 1 Platelet Estimate NORMAL Platelet Morphology Comment NORMAL Red Cell Morphology Comment NORMAL Prothrombin Time 10.7 Prothromb Time International Ratio 1.1 Blood Urea Nitrogen 13 Creatinine 0.65 Random Glucose 220 Total Protein 6.5 Albumin 1.5 Calcium Level 8.1 Phosphorus Level 3.1 Magnesium Level 1.6 Alkaline Phosphatase 115 Aspartate Amino Transf (AST/SGOT) 12 Alanine Aminotransferase (ALT/SGPT) 20 Total Bilirubin 0.4 Sodium Level 134 Potassium Level 4.1 Chloride Level 101 Carbon Dioxide Level 26.5 Anion Gap 7 Estimat Glomerular Filtration Rate 125 Triglycerides Level 205 Blood Gas Puncture Site RT RADIAL Blood Gas Patient Temperature 98.6 Blood Gas HCO3 25 Blood Gas Base Excess 0.7 Blood Gas Oxygen Saturation 94 Arterial Blood pH 7.44 Arterial Blood Partial Pressure CO2 37 Arterial Blood Partial Pressure O2 87 Arterial Blood Oxygen Content 10.5 Arterial Blood Carboxyhemoglobin 1.1 Arterial Blood Methemoglobin 1.4 Blood Gas Hemoglobin 7.8 Oxygen Delivery Device VENTILATOR Blood Gas Ventilator Setting SEE COMMENT Blood Gas Inspired Oxygen 40 Date/Time Source Procedure Growth Status 07/01/17 12:09 Blood Peripheral Aerobic Blood Culture - Final NO GROWTH IN 5 DAYS Complete 07/01/17 12:09 Blood Peripheral Anaerobic Blood Culture - Final NO GROWTH IN 5 DAYS Complete 07/05/17 09:30 Sputum Expectorated Sputum Gram Stain - Final Resulted 07/05/17 09:30 Sputum Culture - Preliminary Gram Negative Erik Resulted 06/10/17 12:45 Urine Catheterized Urine Urine Culture - Final NO GROWTH IN 48 HOURS. Complete Imaging Last Impressions Chest X-Ray 07/07/17 06 Signed Impressions: Service Date/Time: Friday, July 07, 2017 04:08 - CONCLUSION: No significant interval change in left greater than right lower lung zone pulmonary parenchymal opacity. Rosas Rowell MD Abdomen X-Ray 07/04/17 06 Signed Impressions: Service Date/Time: July 03:35 - CONCLUSION: Dilated small bowel has improved slightly from the prior study. Yuri Isidro Jr., MD CT Angiography 07/01/17 0000 Signed Impressions: Service Date/Time: Saturday, July 01, 2017 23:54 - CONCLUSION: 1. Study limited by motion. 2. No pulmonary emboli. 3. Worsening consolidation within the right upper lobe. Infectious etiology suspected. 4. Small bilateral pleural effusions and associated passive atelectasis. This is new. 5. Emphysematous changes. 6. 6 mm left upper lobe pulmonary nodule. Yuri Isidro Jr., MD Abdomen/Pelvis CT 07/01/17 0000 Signed Impressions: Service Date/Time: Saturday, July 01, 2017 23:54 - CONCLUSION: 1. Breathing degraded study. 2. Dilatation of proximal jejunal loops which slowly taper. No obstructing mass or lesion. This could relate to a focal ileus. I cannot completely exclude a bowel obstruction. Small amount of free fluid. 3. Mild inflammatory change involving the mesentery adjacent to the ascending colon has improved somewhat. No pneumatosis involving the bowel observed. Yuri Isidro Jr., MD Brain MRI 06/22/17 0000 Signed Impressions: Service Date/Time: Thursday, June 22, 2017 12:10 - CONCLUSION: All ischemic changes, negative for acute ischemic event. Negative for parenchymal hemorrhage. Usman Pimentel MD FACR Head CT 06/04/17 0000 Signed Impressions: Service Date/Time: Sunday, June 04, 2017 18:46 - CONCLUSION: 1. No significant change compared to 06/03/17. 2. No acute infarct, acute hemorrhage , mass effect or extra-axial fluid collection. 3. Scattered old lacunar infarcts within the bilateral basal ganglia. 4. Mild periventricular and subcortical white matter small vessel ischemic changes bilaterally. 5. Old right posterior parietal infarct. 6. Chronic opacification of right mastoid air cells. Mckay Stone MD Chest CT 06/04/17 0000 Signed Impressions: Service Date/Time: Sunday, June 04, 2017 18:49 - CONCLUSION: 1. Right mid lung field and posterior bibasilar patchiness consistent with probable areas of pneumonia and/or atelectasis. Clinical correlation is recommended. 2. Tiny bilateral pleural effusions. 3. Cardiomegaly and coronary artery calcifications. 4. Minimal scattered emphysematous changes bilaterally. Mckay Stone MD Physical Exam HEENT: normocephalic; atraumatic; no jaundice. trach to vent , pale CHEST: coarse on vent via trach CARDIAC: Controlled heart rate ABDOMEN: Soft, mild distention; bowel sounds soft PEG tube site clean and dry , EXTREMITIES: No clubbing, cyanosis, general edema SKIN: Normal; no rash; pale [employer]: nonverbal, eyes closed, on vent, not communicating Assessment and Plan Plan ASSESSMENT: - ischemic colitis/ileus- This is 61-year-old male with a history of COPD, hypertension, hyperlipidemia, CVA, schizoaffective disorder, bipolar disorder, GERD, renal failure, and arthritis who presented to the emergency room on 2016 from a retirement facility for evaluation of altered mental status. He was found to have Pneumonia and developed respiratory failure. Abdominal soft. He under went EGD/PEG tube with our services on 06/17/17. Patient developed acute elevation on WBC, CT abdomen pelvis done on 06/23 revealed pneumatosis involving cecum and transverse colon suggesting ischemic colitis. Gen. surgery consulted and patient evaluated by Dr. Monroe --medical management at this time Currently pt on mechanical ventilation via tracheostomy. No rectal bleeding or hematemesis reported. ileus seems to be resolving per imaging residuals improving. TF running 10ml/hr neg c didff - Chronic respiratory failure- trach , minimal response PLAN: - NPO - continue advancing TF as tolerated - if abd distention, reconnect to suction if greater than 200 cc residual - Monitor for any acute bleed - Supportive care - GI will sign off, please reconsult if needed pt d/w Dr Zaragoza and this note is on his behalf Bailey Rivera Jul 07, 2017 11:47
[2017-07-07] MEDS: DEXT 5%-NACL 0.9% 1000 ML INJ 1,000 ML IV SCH (15:15)
[2017-07-07] MEDS: CLINIMIX 5/25 (Custom) 2000 mL- >42 mls/hr IV-CENTRAL SCH ×9 (18:11)
--- NOTE | 2017-07-07 19:39 | HHI.CCPN ---
Subjective Remarks/Hospital Course 06/04: Mr. Reilly is a 61-year-old male with a history of COPD, hypertension, hyperlipidemia, CVA, schizoaffective disorder, bipolar disorder, GERD, renal failure, and arthritis who presented to the emergency room on 06/03/2017 from a [facility] facility for evaluation of altered mental status. Upon review of the medical records from the [facility] facility, it is noted he had a right lower lobe pneumonia diagnosed mid May. Head CT showed no acute infarct, acute hemorrhage, mass effect, or extra-axial fluid collection but scattered old lacunar infarcts within the bilateral basal ganglia. Mild periventricular and subcortical white matter small vessel ischemic changes bilaterally. Chest x-ray shows scattered bibasilar patchiness consistent with possible pneumonia. Per documentation : While in the ER, patient was in moderate respiratory distress with tachypnea and utilization of accessory abdominal muscles to breathe. His lung sounds are bilaterally congested and he is confused and a poor historian. His speech is slightly slurred but this is not a new finding. He was noted to be on 5 L nasal cannula with oxygen saturation of 94% in the emergency room. Patient was admitted to the ICU by the hospitalist service. He was initiated on heparin drip for suspicion of PE. He was also noted to have an elevated CPK and creatinine. His blood pressures were running high overnight. This afternoon patient developed worsening agitation and disorientation and confusion. His heparin was stopped earlier by Dr. Garcia due to low suspicion for PE. Patient developed worsening respiration status with respirations in the 30s and O2 sats in the mid 80s. Critical care medicine was consulted. Patient was emergently intubated by Dr. Elvira Gutierrez and I subsequently took over patient care. When I evaluated the patient he had been sedated for the intubation and is being placed on mechanical ventilation. History was obtained by discussion with Dr. Garcia, Dr. Gutierrez and ICU nursing staff as well as documentation in the chart. 06/05: Remains sedated, orally intubated on mechanical ventilation. 06/06: Sedated, orally intubated on mechanical ventilation. Failed C Pap trial today. Got extremely anxious on lightening sedation. 06/07 No events overnight. Sedated and intubated. Afebrile. 06/08 No events overnight. Sedated with Diprivan, Fentanyl and intubated. 06/09 Patient remains sedated and intubated. Afebrile.Did not tolerate CPAP trials yesterday. 06/10 Patient is sedated with Fentanyl and Diprivan. Afebrile. Did not tolerate CPAP yesterday as he became restless, agitated and tachycardic. 06/11 Patient remains sedated and intubated. Spiked fever with Tmax 101.1 06/12 No events overnight. Sedated and intubated. Afebrile. 06/13 Patient remains intubated and sedated with Diprivan, fentanyl in addition he is on Precedex drip. T:100.0 06/14 Patient remains sedated and intubated. Afebrile. Did not tolerate CPAP trials yesterday as he became tahypenic, tachycardic and restless. 06/15: agitation persists. respiratory failure persists. severely volume overloaded. has been intubated for almost 2 weeks. may require trach. CT abd/ pelvis without overt acute disease. no other source for fungemia. 06/16: s/p trach yesterday. no significant changes. 06/17: plan for PEG today. agitation persists with significant delirium. no other significant changes. 06/18: s/p PEG placement. weaning off sedation. still failing cpap trials. 06/19: cannot wean off precedex: agitated delirium persists. also still failing cpap trials. 06/20 No events overnight. On Precedex drip for agitation. T: 100.1 last night. 06/21 No events overnight. Remains on Precedex drip. Afebrile. 06/22 Patient is sedated with Fentanyl and Precedex. Afebrile. For MRI brain today. 06/23 Patient became hypotensive overnight and had episode of desaturation with says in mid 80's. Given 500ml 5% Albumin now off sedation ( Fentanyl and Precedex held). BP is better. In addition he was given Dulcolax suppos. and Mg citrate now having BM's. KUB this morning showed diffuse mild gaseous distention of bowel. FIO2 requirements is better now on 50% FIO2 with PEEP: 10 from FIO2 75 % overnight. CXR unchanged ( Consolidation LLL and Atelectasis right lung base) . T:99.9 06/24: Remains on mechanical ventilation via tracheostomy. CT abdomen pelvis done on 06/23 revealed pneumatosis involving cecum and transverse colon suggesting ischemic colitis. Gen. surgery consulted and patient evaluated by Dr. Monroe today who recommends medical management at this time with IV fluids and continuation of antibiotics. Patient not tolerating tube feeds and has abdominal distention. Maintaining blood pressure currently. 06/25: Remains on mechanical ventilation via tracheostomy. Does not appear to be in any acute distress. Still nothing by mouth. Being followed by general surgery for pneumatosis involving cecum and transverse colon. 06/26: Remains on mechanical ventilation via tracheostomy. Awake. Denies abdominal pain this morning. Has bowel sounds. Abdominal less distended. 06/27: no improvements. afebrile. restarting tube feeds slowly. 06/28: tube feeds held overnight for high residuals. reglan iv started. tolerated t-piece yesterday for short period. 06/29: In bed, awake and alert. On mechanical ventilation via tracheostomy. Not tolerating tube feeds with high residuals from PEG tube on suction. 06/30: Awake and alert. Denies any abdominal pain. Bilious emesis overnight with about 2200 cc suctioned out via PEG tube in last 24 hours. Being scheduled for colonoscopy by GI 07/01: Became tachypneic this morning with respiratory rate in the 40s. O2 sats remained in the 90s. Had to resume sedation with Versed and patient was placed back on PRBC mode mechanical ventilation. Chest x-ray done this morning shows bibasilar infiltrates, no pneumothorax or atelectasis noted. Became hypotensive requiring Levophed 2 mics per minute. Still not tolerating tube feeds and PEG tube remains to suction. Started on PPN yesterday. PICC line placed yesterday. 07/02: No intervention per general surgery Dr. Monroe. No intervention per GI which has signed off. Instructed to possibly begin trickle feeds 07/03: Approximally 900 cc of bilious fluid from gastric contents in the last 12 hours overnight. During the day last 12 hours approximately 300 cc of bilious gastric output. Patient was started on erythromycin 200 mg every 6 hours. Plan for repeat KUB in am . Patient continues on TPN 07/04: Last 24 hours, gastric output significantly decreased. GI plans for clamping of the G-tube today with initiation of trickle feeds in a.m..Plan for possibly performing endoscopy early next week under general anesthesia/ in the OR. Patient continues to have stool output. KUB slightly shows slight improvement in small bowel dilatation. 07/05:Trickle feeds initiated early this am., Per GI. Hemoglobin stable. Patient remains sedated. 07/06: Continues to tolerate tube feeds at 10 cc/an hour. 90 cc residual and approximately 24 hours. UA resulted noted trace occult blood. Will continue to monitor, serial hemoglobin and hematocrit. Patient continues on TPN. Patient continues to fail CPAP trials. 07/07: Afebrile. Tolerating tube feeds at 10 cc/an hour. Tube feed residuals remain at 100 cc per 12 hour shift. The patient continues to fail CPAP trials. Close monitoring of hemoglobin, noted slight decrease. Objective Vital Signs Date Time Temp Pulse Resp B/P (MAP) Pulse Ox O2 Delivery O2 Flow Rate FiO2 07/07/17 18:00 68 07/07/17 16:00 100.1 31 95/55 (68) 96 07/07/17 16:00 40 Intake and Output 07/07/17 07/07/17 07/08/17 08:00 16:00 00:00 Intake Total 2125.1 ml 593 ml 1489.1 ml Output Total 1550 ml 1800 ml Balance 575.1 ml 593 ml -310.9 ml Result Diagram: 07/07/17 0452 07/07/17 0452 Other Results Microbiology Date/Time Source Procedure Growth Status 07/05/17 09:30 Sputum Expectorated Sputum Gram Stain - Final Complete 07/05/17 09:30 Sputum Culture - Final Pseudomonas Aeruginosa Escherichia Coli Complete Laboratory Tests Test 07/07/17 05:44 Blood Gas Puncture Site RT RADIAL Blood Gas Patient Temperature 98.6 Blood Gas HCO3 25 mmol/L (22-26) Blood Gas Base Excess 0.7 mmol/L (-2-2) Blood Gas Oxygen Saturation 94 % (90-100) Arterial Blood pH 7.44 (7.380-7.420) Arterial Blood Partial Pressure CO2 37 mmHg (38-42) Arterial Blood Partial Pressure O2 87 mmHg (61-120) Arterial Blood Oxygen Content 10.5 Vol % (12.0-20.0) Arterial Blood Carboxyhemoglobin 1.1 % (0-4) Arterial Blood Methemoglobin 1.4 % (0-2) Blood Gas Hemoglobin 7.8 G/DL (12.0-16.0) Oxygen Delivery Device VENTILATOR Blood Gas Ventilator Setting SEE COMMENT Blood Gas Inspired Oxygen 40 % Imaging Last Impressions Chest X-Ray 07/04/17599 Signed Impressions: Service Date/Time: July 03:32 - CONCLUSION: Unchanged bibasilar infiltrates. Yuri Isidro Jr., MD Abdomen X-Ray 07/04/17 0600 Signed Impressions: Service Date/Time: July 03:35 - CONCLUSION: Dilated small bowel has improved slightly from the prior study. Yuri Isidro Jr., MD CT Angiography 07/01/17 0000 Signed Impressions: Service Date/Time: Saturday, July 01, 2017 23:54 - CONCLUSION: 1. Study limited by motion. 2. No pulmonary emboli. 3. Worsening consolidation within the right upper lobe. Infectious etiology suspected. 4. Small bilateral pleural effusions and associated passive atelectasis. This is new. 5. Emphysematous changes. 6. 6 mm left upper lobe pulmonary nodule. Yuri Isidro Jr., MD Abdomen/Pelvis CT 07/01/17 0000 Signed Impressions: Service Date/Time: Saturday, July 01, 2017 23:54 - CONCLUSION: 1. Breathing degraded study. 2. Dilatation of proximal jejunal loops which slowly taper. No obstructing mass or lesion. This could relate to a focal ileus. I cannot completely exclude a bowel obstruction. Small amount of free fluid. 3. Mild inflammatory change involving the mesentery adjacent to the ascending colon has improved somewhat. No pneumatosis involving the bowel observed. Yuri Isidro Jr., MD Brain MRI 06/22/17 0000 Signed Impressions: Service Date/Time: Thursday, June 22, 2017 12:10 - CONCLUSION: All ischemic changes, negative for acute ischemic event. Negative for parenchymal hemorrhage. Usman Pimentel MD FACR Head CT 06/04/17 0000 Signed Impressions: Service Date/Time: Sunday, June 04, 2017 18:46 - CONCLUSION: 1. No significant change compared to 06/03/17. 2. No acute infarct, acute hemorrhage , mass effect or extra-axial fluid collection. 3. Scattered old lacunar infarcts within the bilateral basal ganglia. 4. Mild periventricular and subcortical white matter small vessel ischemic changes bilaterally. 5. Old right posterior parietal infarct. 6. Chronic opacification of right mastoid air cells. Mckay Stone MD Chest CT 06/04/17 0000 Signed Impressions: Service Date/Time: Sunday, June 04, 2017 18:49 - CONCLUSION: 1. Right mid lung field and posterior bibasilar patchiness consistent with probable areas of pneumonia and/or atelectasis. Clinical correlation is recommended. 2. Tiny bilateral pleural effusions. 3. Cardiomegaly and coronary artery calcifications. 4. Minimal scattered emphysematous changes bilaterally. Mckay Stone MD Last 48 hours Impressions Abdomen X-Ray 06/24/17 0600 Signed Impressions: Service Date/Time: Saturday, June 24, 2017 03:14 - CONCLUSION: Dilated transverse colon and no definite pneumatosis intestinalis or technique, however the patient's prior CT examination was suggestive of pneumatosis. Domingo Pollack MD Chest X-Ray 06/24/17 0000 Signed Impressions: Service Date/Time: Saturday, June 24, 2017 03:08 - CONCLUSION: Bibasilar atelectasis and/or infiltrate is seen. Domingo Pollack MD Chest X-Ray 06/23/17 0000 Signed Impressions: Service Date/Time: Friday, June 23, 2017 03:45 - CONCLUSION: No significant interval change Arvind Hernandez MD CT Angiography 06/23/17 0000 Signed Impressions: Service Date/Time: Friday, June 23, 2017 20:34 - CONCLUSION: 1. No evidence of pulmonary embolus. 2. Increased patchy bilateral pulmonary consolidation with mild thin-walled cavitation of focal consolidation in the right upper lobe. This finding could be related consolidation of an area of long with emphysema involvement. 3. Mild to moderate upper lobe pulmonary parenchymal emphysema is seen. Rosas Rowell MD Abdomen/Pelvis CT 06/23/17 0000 Signed Impressions: Service Date/Time: Friday, June 23, 2017 20:34 - CONCLUSION: 1. Bowel wall pneumatosis involving the cecum and proximal transverse colon. Findings are suspicious for ischemic colitis. Surrounding inflammatory change in the intra-abdominal fat. No portal venous gas or free air identified. 2. Prominent bilateral lower lobe pulmonary consolidation. Rosas Rowell MD Abdomen X-Ray 06/23/17 0000 Signed Impressions: Service Date/Time: Friday, June 23, 2017 03:51 - CONCLUSION: Diffuse mild gaseous distention of bowel Arvind Hernandez MD Last Impressions Chest X-Ray 06/23/17 0000 Signed Impressions: Service Date/Time: Friday, June 23, 2017 03:45 - CONCLUSION: No significant interval change Arvind Hernandez MD Abdomen X-Ray 06/23/17 0000 Signed Impressions: Service Date/Time: Friday, June 23, 2017 03:51 - CONCLUSION: Diffuse mild gaseous distention of bowel Arvind Hernandez MD Brain MRI 06/22/17 0000 Signed Impressions: Service Date/Time: Thursday, June 22, 2017 12:10 - CONCLUSION: All ischemic changes, negative for acute ischemic event. Negative for parenchymal hemorrhage. Usman Pimentel MD FACR Abdomen/Pelvis CT 06/14/17 0000 Signed Impressions: Service Date/Time: Wednesday, June 14, 2017 22:32 - CONCLUSION: 1. Increasing basilar lung consolidation since chest CT from June 04. 2. Mild ileus. No bowel obstruction, free air or free fluid. 3. Left hip replacement. Advanced osteoarthritis right hip. NG in stomach. Rectal tube present. Humphrey Weston MD Head CT 06/04/17 0000 Signed Impressions: Service Date/Time: Sunday, June 04, 2017 18:46 - CONCLUSION: 1. No significant change compared to 06/03/17. 2. No acute infarct, acute hemorrhage , mass effect or extra-axial fluid collection. 3. Scattered old lacunar infarcts within the bilateral basal ganglia. 4. Mild periventricular and subcortical white matter small vessel ischemic changes bilaterally. 5. Old right posterior parietal infarct. 6. Chronic opacification of right mastoid air cells. Mckay Stone MD Chest CT 06/04/17 0000 Signed Impressions: Service Date/Time: Sunday, June 04, 2017 18:49 - CONCLUSION: 1. Right mid lung field and posterior bibasilar patchiness consistent with probable areas of pneumonia and/or atelectasis. Clinical correlation is recommended. 2. Tiny bilateral pleural effusions. 3. Cardiomegaly and coronary artery calcifications. 4. Minimal scattered emphysematous changes bilaterally. Mckay Stone MD Objective Remarks GENERAL: Patient is 61 yo gentleman on ventilator via trach sedated on Precedex and Versed at this time SKIN: Warm and dry. HEAD: Normocephalic. EYES: No scleral icterus. No injection or drainage. NECK: trachea midline. No JVD. + Trach CARDIOVASCULAR: Regular rate and rhythm. RESPIRATORY: equal chest rise. 40% fio2. Clear to auscultation GASTROINTESTINAL: Abdomen soft, protuberant non-tender, minimally distended, bowel sounds present. MUSCULOSKELETAL: No cyanosis, or edema. Neuro: Off sedation, follows simple commands intermittently. A/P Assessment and Plan Assessment: 61yM with history of schizoaffective d/o and bipolar d/o who presented with acute hypoxic respiratory failure and now fungemia without overt source. Not improving on pathway. No meaningful improvements over last 2 weeks. s/p trach 06/15 and PEG 06/17. remains off pathway. needs long-term acute care level of rehabilitation. tube feed intolerance persists. has been without nutrition since 06/24. Started on PPN 06/30, ->TPN 07/01 Plan: Neuro: Acute Metabolic Encephalopathy Agitated Delirium - improving. Schizoaffective disorder/bipolar disorder History of alcohol abuse History of CVA Monitor neuro status. Resumed sedation with Versed gtt on 07/01. Chin continues on Versed and Precedex infusion for ventilator synchrony and analgesia MRI brain 06/22: No acute ischemic events, no hemorrhage Lactulose discontinued EEG showed mod. encephalopathy Neuro is following. Dr. Rosibel Cheatham 10mg IM q12h prn for agitation CV: Uncontrolled hypertension - resolved. hyperlipidemia Monitor HR and BP keep MAP>65mmHg Hold antihypertensive meds ( Norvasc 5mg daily, clonidine 0.3mg po q8h, Lopressor 50mg Q12) 2-D echo with normal LV/RV function Pulmo: Acute respiratory failure requiring mechanical ventilation - persistent. COPD exacerbation Resolving community acquired pneumonia Intubated and placed on mechanical ventilation on 06/04. Continue with vent support keep sat >92%. Vent bundle, bronchodilators, on prednisone taper On PRVC CTA chest negative for PE. trach 06/[address] Sapp/Alexander continue daily SBTs. t-piece trials if tolerated. Continue CPAP trials GI/liver: GERD Acute protein calorie malnutrition- severe 06/23 KUB abdomen: Mild gaseous distention of bowel Ct abd/pelvis 06/23: Pneumatosis involving cecum and transverse colon concerning for ischemia. C. Diff negative hold bowel regimen. Surgery following patient for ischemic colitis- no surgical intervention recommended at this time and they have signed off. I discussed case with Dr. Anival Madden covering for Dr. Monroe on 06/30 as patient continues to have ileus with bilious output from PEG tube and not tolerating tube feeds. hold tube feeds, keep reglan iv. restart tube feeds 06/29 after 24h of reglan. having regular bowel movements. passing flatus. Consulted GI and view of ileus for evaluation of ileus and ischemic colitis. They're planning colonoscopy for further evaluation. Started PPN on 06/30 as unable to tolerate PEG tube feeds. PICC line placed and was switched to TPN on 07/01 KUB done on 06/29 with dilated small and large bowel loops. 07/02: Discussed with Dr. Caraballo requested to restart tube feeds. Neurosurgery has signed off Follow-up KUB -slight improvement in dilated small bowel. No pneumatosis 07/04 Erythromycin 200 mg every 6 hours IV started , patient continues on metoclopramide, PEG tube clamped for 24 hours 07/05 Trickle feeds initiated , minimal residuals. Tentative plan for possible EGD next week per GI Renal/: ROSENDO/ CKD - resolved. Rhabdomyolysis - resolved. Acute intravascular volume overload- resolved. Metabolic alkalosis- resolving. Monitor renal function, electrolytes replacement per protocol. saline lock ivf. l ID: Fungemia- resolved. Community Acquired Pneumonia- resolved. Ischemic colitis Sepsis [facility] Associated pneumonia with pseudomonas/e.coli completed full 14 day course of micagunfin for fungemia. Continue Zosyn. Micafungin added per ID CT abdomen pelvis on 06/23 shows pneumatosis involving cecum and transverse colon consistent with ischemic colitis. Patient evaluated by general surgery Dr. Monroe who at this time recommends continuing IV fluids and antibiotics and he will be available for surgery if patient develops evidence of peritonitis or worsens clinically. ID is following Sputum cx: E.coli on 06/04, sputum 06/10: normal resp tamara BC 06/14, 06/19 : NGTD, Sputum cx 06/21: E.coli, Pseudomonas Endocrine: Hyperglycemia of critical illness SSI medium scale, q4h Heme: Anemia secondary to chronic disease Monitor CBC. Prophylaxis: Pepcid/SCDs. SQ Lovenox Lines: Right sided PICC line placed 06/30 Level 3 follow up D[employer]W [employer] at bedside (Ct), and mother Mrs. Reilly at bedside. Mother states patient would not want to be on mechanical ventilation long-term. Patient's mother also stated that the patient never wanted to be intubated, initially. Would like to discuss goals of treatment, should the patient continued to fail CPAP trials. Palliative care has been consulted to define goals of care. Physician Elvira Null MD Jul 07, 2017 19:39
[2017-07-07] MEDS: FAT EMULSION 20% INJ 250 ML (Daily over 8 hours) IV-CENTRAL SCH (20:24)
[2017-07-08] VITALS (26 sets, daily range): BP systolic 89–138; BP diastolic 52–80; PULSE 56–74; RESP 29–68; TEMP 97.9–99.6; O2SAT 94–100
[2017-07-08] MEDS: INSULIN NovoLIN REGULAR SUPPLEMENTAL SCALE SQ SCH ×7 (00:05→23:35)
[2017-07-08] MEDS: ERYTHROMYCIN IV SCH ×2 (00:05→05:24)
[2017-07-08] MEDS: PIPERACIL-TAZO 4.5 GM PREMIX 100 ML IV SCH ×4 (01:05→20:08)
[2017-07-08] MEDS: CHLORHEXIDINE GLUCONATE 2 % 1 PACK (2 CLOTHS) TOP SCH (04:00)
[2017-07-08] MEDS: DEXMEDETOMIDINE INJ 1,000 MCG in SODIUM CHLOR 0.9% 250 ML INJ 240 ML IV PRN ×2 (05:24→12:05)
[2017-07-08] MEDS: METOCLOPRAMIDE HCL 10 MG/2 ML VIAL IV PUSH SCH ×3 (05:24→20:41)
[2017-07-08 05:55] LABS: HEMATOCRIT 22.4 % (39.0-51.0); HEMOGLOBIN 7.5 GM/DL (13.0-17.0); MEAN CELL VOLUME 87.9 FL (80.0-100.0); MEAN CORPUSCULAR HEMOGLOBIN 29.3 PG (27.0-34.0); MEAN CORPUSCULAR HGB CONC 33.3 % (32.0-36.0); MEAN PLATELET VOLUME 7.1 FL (7.0-11.0); PLATELET COUNT 332 TH/MM3 (150-450); RED BLOOD COUNT 2.55 MIL/MM3 (4.50-5.90); WHITE BLOOD COUNT 9.5 TH/MM3 (4.0-11.0)
[2017-07-08 06:09] LABS: BICARBONATE 26.1 MEQ/L (21.0-32.0); CALCIUM 8.3 MG/DL (8.5-10.1); CREATININE 0.62 MG/DL (0.60-1.30)
--- NOTE | 2017-07-08 06:53 | HHI.CCPN ---
Subjective Remarks/Hospital Course 06/04: Mr. Reilly is a 61-year-old male with a history of COPD, hypertension, hyperlipidemia, CVA, schizoaffective disorder, bipolar disorder, GERD, renal failure, and arthritis who presented to the emergency room on 06/03/2017 from a sn[facility] facility for evaluation of altered mental status. Upon review of the medical records from the snf facility, it is noted he had a right lower lobe pneumonia diagnosed mid May. Head CT showed no acute infarct, acute hemorrhage, mass effect, or extra-axial fluid collection but scattered old lacunar infarcts within the bilateral basal ganglia. Mild periventricular and subcortical white matter small vessel ischemic changes bilaterally. Chest x-ray shows scattered bibasilar patchiness consistent with possible pneumonia. Per documentation : While in the ER, patient was in moderate respiratory distress with tachypnea and utilization of accessory abdominal muscles to breathe. His lung sounds are bilaterally congested and he is confused and a poor historian. His speech is slightly slurred but this is not a new finding. He was noted to be on 5 L nasal cannula with oxygen saturation of 94% in the emergency room. Patient was admitted to the ICU by the hospitalist service. He was initiated on heparin drip for suspicion of PE. He was also noted to have an elevated CPK and creatinine. His blood pressures were running high overnight. This afternoon patient developed worsening agitation and disorientation and confusion. His heparin was stopped earlier by Dr. Garcia due to low suspicion for PE. Patient developed worsening respiration status with respirations in the 30s and O2 sats in the mid 80s. Critical care medicine was consulted. Patient was emergently intubated by Dr. Elvira Gutierrez and I subsequently took over patient care. When I evaluated the patient he had been sedated for the intubation and is being placed on mechanical ventilation. History was obtained by discussion with Dr. Garcia, Dr. Gutierrez and ICU nursing staff as well as documentation in the chart. 06/05: Remains sedated, orally intubated on mechanical ventilation. 06/06: Sedated, orally intubated on mechanical ventilation. Failed C Pap trial today. Got extremely anxious on lightening sedation. 06/07 No events overnight. Sedated and intubated. Afebrile. 06/08 No events overnight. Sedated with Diprivan, Fentanyl and intubated. 06/09 Patient remains sedated and intubated. Afebrile.Did not tolerate CPAP trials yesterday. 06/10 Patient is sedated with Fentanyl and Diprivan. Afebrile. Did not tolerate CPAP yesterday as he became restless, agitated and tachycardic. 06/11 Patient remains sedated and intubated. Spiked fever with Tmax 101.1 06/12 No events overnight. Sedated and intubated. Afebrile. 06/13 Patient remains intubated and sedated with Diprivan, fentanyl in addition he is on Precedex drip. T:100.0 06/14 Patient remains sedated and intubated. Afebrile. Did not tolerate CPAP trials yesterday as he became tahypenic, tachycardic and restless. 06/15: agitation persists. respiratory failure persists. severely volume overloaded. has been intubated for almost 2 weeks. may require trach. CT abd/ pelvis without overt acute disease. no other source for fungemia. 06/16: s/p trach yesterday. no significant changes. 06/17: plan for PEG today. agitation persists with significant delirium. no other significant changes. 06/18: s/p PEG placement. weaning off sedation. still failing cpap trials. 06/19: cannot wean off precedex: agitated delirium persists. also still failing cpap trials. 06/20 No events overnight. On Precedex drip for agitation. T: 100.1 last night. 06/21 No events overnight. Remains on Precedex drip. Afebrile. 06/22 Patient is sedated with Fentanyl and Precedex. Afebrile. For MRI brain today. 06/23 Patient became hypotensive overnight and had episode of desaturation with says in mid 80's. Given 500ml 5% Albumin now off sedation ( Fentanyl and Precedex held). BP is better. In addition he was given Dulcolax suppos. and Mg citrate now having BM's. KUB this morning showed diffuse mild gaseous distention of bowel. FIO2 requirements is better now on 50% FIO2 with PEEP: 10 from FIO2 75 % overnight. CXR unchanged ( Consolidation LLL and Atelectasis right lung base) . T:99.9 06/24: Remains on mechanical ventilation via tracheostomy. CT abdomen pelvis done on 06/23 revealed pneumatosis involving cecum and transverse colon suggesting ischemic colitis. Gen. surgery consulted and patient evaluated by Dr. Monroe today who recommends medical management at this time with IV fluids and continuation of antibiotics. Patient not tolerating tube feeds and has abdominal distention. Maintaining blood pressure currently. 06/25: Remains on mechanical ventilation via tracheostomy. Does not appear to be in any acute distress. Still nothing by mouth. Being followed by general surgery for pneumatosis involving cecum and transverse colon. 06/26: Remains on mechanical ventilation via tracheostomy. Awake. Denies abdominal pain this morning. Has bowel sounds. Abdominal less distended. 06/27: no improvements. afebrile. restarting tube feeds slowly. 06/28: tube feeds held overnight for high residuals. reglan iv started. tolerated t-piece yesterday for short period. 06/29: In bed, awake and alert. On mechanical ventilation via tracheostomy. Not tolerating tube feeds with high residuals from PEG tube on suction. 06/30: Awake and alert. Denies any abdominal pain. Bilious emesis overnight with about 2200 cc suctioned out via PEG tube in last 24 hours. Being scheduled for colonoscopy by GI 07/01: Became tachypneic this morning with respiratory rate in the 40s. O2 sats remained in the 90s. Had to resume sedation with Versed and patient was placed back on PRBC mode mechanical ventilation. Chest x-ray done this morning shows bibasilar infiltrates, no pneumothorax or atelectasis noted. Became hypotensive requiring Levophed 2 mics per minute. Still not tolerating tube feeds and PEG tube remains to suction. Started on PPN yesterday. PICC line placed yesterday. 07/02: No intervention per general surgery Dr. Monroe. No intervention per GI which has signed off. Instructed to possibly begin trickle feeds 07/03: Approximally 900 cc of bilious fluid from gastric contents in the last 12 hours overnight. During the day last 12 hours approximately 300 cc of bilious gastric output. Patient was started on erythromycin 200 mg every 6 hours. Plan for repeat KUB in am . Patient continues on TPN 07/04: Last 24 hours, gastric output significantly decreased. GI plans for clamping of the G-tube today with initiation of trickle feeds in a.m..Plan for possibly performing endoscopy early next week under general anesthesia/ in the OR. Patient continues to have stool output. KUB slightly shows slight improvement in small bowel dilatation. 07/05:Trickle feeds initiated early this am., Per GI. Hemoglobin stable. Patient remains sedated. 07/06: Continues to tolerate tube feeds at 10 cc/an hour. 90 cc residual and approximately 24 hours. UA resulted noted trace occult blood. Will continue to monitor, serial hemoglobin and hematocrit. Patient continues on TPN. Patient continues to fail CPAP trials. 07/07: Afebrile. Tolerating tube feeds at 10 cc/an hour. Tube feed residuals remain at 100 cc per 12 hour shift. The patient continues to fail CPAP trials. Close monitoring of hemoglobin, noted slight decrease. 07/08: Patient noted to have continued elevation in glucose levels greater than 200, Levemir increased. Patient continues to tolerate tube feeds at 10 cc/an hour, with residuals over the last 12 hours approximately 60 cc. The patient continues on prokinetic GI motility medications Reglan 10 mg every 8 hours and erythromycin 200 mg every 6 hours. Patient was noted to have 4 bowel movements over the last 12 hours. Objective Vital Signs Date Time Temp Pulse Resp B/P (MAP) Pulse Ox O2 Delivery O2 Flow Rate FiO2 07/08/17 06:00 56 07/08/17 04:20 100 40 07/08/17 04:00 97.9 32 121/58 (79) Intake and Output 07/08/17 07/08/17 07/09/17 08:00 16:00 00:00 Intake Total 2175 ml Output Total 2700 ml Balance -525 ml Result Diagram: 07/08/17 0520 07/08/17 0520 Other Results Microbiology Date/Time Source Procedure Growth Status 07/05/17 09:30 Sputum Expectorated Sputum Gram Stain - Final Complete 07/05/17 09:30 Sputum Culture - Final Pseudomonas Aeruginosa Escherichia Coli Complete Imaging Last Impressions Chest X-Ray 07/04/17 06 Signed Impressions: Service Date/Time: July 03:32 - CONCLUSION: Unchanged bibasilar infiltrates. Yuri Isidro Jr., MD Abdomen X-Ray 07/04/17 0600 Signed Impressions: Service Date/Time: July 03:35 - CONCLUSION: Dilated small bowel has improved slightly from the prior study. Yuri Isidro Jr., MD CT Angiography 07/01/17 0000 Signed Impressions: Service Date/Time: Saturday, July 01, 2017 23:54 - CONCLUSION: 1. Study limited by motion. 2. No pulmonary emboli. 3. Worsening consolidation within the right upper lobe. Infectious etiology suspected. 4. Small bilateral pleural effusions and associated passive atelectasis. This is new. 5. Emphysematous changes. 6. 6 mm left upper lobe pulmonary nodule. Yuri Isidro Jr., MD Abdomen/Pelvis CT 07/01/17 0000 Signed Impressions: Service Date/Time: Saturday, July 01, 2017 23:54 - CONCLUSION: 1. Breathing degraded study. 2. Dilatation of proximal jejunal loops which slowly taper. No obstructing mass or lesion. This could relate to a focal ileus. I cannot completely exclude a bowel obstruction. Small amount of free fluid. 3. Mild inflammatory change involving the mesentery adjacent to the ascending colon has improved somewhat. No pneumatosis involving the bowel observed. Yuri Isidro Jr., MD Brain MRI 06/22/17 0000 Signed Impressions: Service Date/Time: Thursday, June 22, 2017 12:10 - CONCLUSION: All ischemic changes, negative for acute ischemic event. Negative for parenchymal hemorrhage. Usman Pimentel MD FACR Head CT 06/04/17 0000 Signed Impressions: Service Date/Time: Sunday, June 04, 2017 18:46 - CONCLUSION: 1. No significant change compared to 06/03/17. 2. No acute infarct, acute hemorrhage , mass effect or extra-axial fluid collection. 3. Scattered old lacunar infarcts within the bilateral basal ganglia. 4. Mild periventricular and subcortical white matter small vessel ischemic changes bilaterally. 5. Old right posterior parietal infarct. 6. Chronic opacification of right mastoid air cells. Mckay Stone MD Chest CT 06/04/17 0000 Signed Impressions: Service Date/Time: Sunday, June 04, 2017 18:49 - CONCLUSION: 1. Right mid lung field and posterior bibasilar patchiness consistent with probable areas of pneumonia and/or atelectasis. Clinical correlation is recommended. 2. Tiny bilateral pleural effusions. 3. Cardiomegaly and coronary artery calcifications. 4. Minimal scattered emphysematous changes bilaterally. Mckay Stone MD Last 48 hours Impressions Abdomen X-Ray 06/24/17 0600 Signed Impressions: Service Date/Time: Saturday, June 24, 2017 03:14 - CONCLUSION: Dilated transverse colon and no definite pneumatosis intestinalis or technique, however the patient's prior CT examination was suggestive of pneumatosis. Domingo Pollack MD Chest X-Ray 06/24/17 0000 Signed Impressions: Service Date/Time: Saturday, June 24, 2017 03:08 - CONCLUSION: Bibasilar atelectasis and/or infiltrate is seen. Domingo Pollack MD Chest X-Ray 06/23/17 0000 Signed Impressions: Service Date/Time: Friday, June 23, 2017 03:45 - CONCLUSION: No significant interval change Arvind Hernandez MD CT Angiography 06/23/17 0000 Signed Impressions: Service Date/Time: Friday, June 23, 2017 20:34 - CONCLUSION: 1. No evidence of pulmonary embolus. 2. Increased patchy bilateral pulmonary consolidation with mild thin-walled cavitation of focal consolidation in the right upper lobe. This finding could be related consolidation of an area of long with emphysema involvement. 3. Mild to moderate upper lobe pulmonary parenchymal emphysema is seen. Rosas Rowell MD Abdomen/Pelvis CT 06/23/17 0000 Signed Impressions: Service Date/Time: Friday, June 23, 2017 20:34 - CONCLUSION: 1. Bowel wall pneumatosis involving the cecum and proximal transverse colon. Findings are suspicious for ischemic colitis. Surrounding inflammatory change in the intra-abdominal fat. No portal venous gas or free air identified. 2. Prominent bilateral lower lobe pulmonary consolidation. Rosas Rowell MD Abdomen X-Ray 06/23/17 0000 Signed Impressions: Service Date/Time: Friday, June 23, 2017 03:51 - CONCLUSION: Diffuse mild gaseous distention of bowel Arvind Hernandez MD Last Impressions Chest X-Ray 06/23/17 0000 Signed Impressions: Service Date/Time: Friday, June 23, 2017 03:45 - CONCLUSION: No significant interval change Arvind Hernandez MD Abdomen X-Ray 06/23/17 0000 Signed Impressions: Service Date/Time: Friday, June 23, 2017 03:51 - CONCLUSION: Diffuse mild gaseous distention of bowel Arvind Hernandez MD Brain MRI 06/22/17 0000 Signed Impressions: Service Date/Time: Thursday, June 22, 2017 12:10 - CONCLUSION: All ischemic changes, negative for acute ischemic event. Negative for parenchymal hemorrhage. Usman Pimentel MD FACR Abdomen/Pelvis CT 06/14/17 0000 Signed Impressions: Service Date/Time: Wednesday, June 14, 2017 22:32 - CONCLUSION: 1. Increasing basilar lung consolidation since chest CT from June 04. 2. Mild ileus. No bowel obstruction, free air or free fluid. 3. Left hip replacement. Advanced osteoarthritis right hip. NG in stomach. Rectal tube present. Humphrey Weston MD Head CT 06/04/17 0000 Signed Impressions: Service Date/Time: Sunday, June 04, 2017 18:46 - CONCLUSION: 1. No significant change compared to 06/03/17. 2. No acute infarct, acute hemorrhage , mass effect or extra-axial fluid collection. 3. Scattered old lacunar infarcts within the bilateral basal ganglia. 4. Mild periventricular and subcortical white matter small vessel ischemic changes bilaterally. 5. Old right posterior parietal infarct. 6. Chronic opacification of right mastoid air cells. Mckay Stone MD Chest CT 06/04/17 0000 Signed Impressions: Service Date/Time: Sunday, June 04, 2017 18:49 - CONCLUSION: 1. Right mid lung field and posterior bibasilar patchiness consistent with probable areas of pneumonia and/or atelectasis. Clinical correlation is recommended. 2. Tiny bilateral pleural effusions. 3. Cardiomegaly and coronary artery calcifications. 4. Minimal scattered emphysematous changes bilaterally. Mckay Stone MD Objective Remarks GENERAL: Patient is 61 yo gentleman on ventilator via trach sedated SKIN: Warm and dry. HEAD: Normocephalic. EYES: No scleral icterus. No injection or drainage. NECK: trachea midline. No JVD. + Trach CARDIOVASCULAR: Regular rate and rhythm. RESPIRATORY: equal chest rise. 40% fio2. Clear to auscultation GASTROINTESTINAL: Abdomen soft, protuberant non-tender, minimally distended, bowel sounds present. Tube feeds infusing. MUSCULOSKELETAL: No cyanosis, or edema. Neuro: Off sedation, follows simple commands intermittently. A/P Assessment and Plan Assessment: 61yM with history of schizoaffective d/o and bipolar d/o who presented with acute hypoxic respiratory failure and now fungemia without overt source. Not improving on pathway. No meaningful improvements over last 2 weeks. s/p trach 06/15 and PEG 06/17. remains off pathway. needs long-term acute care level of rehabilitation. tube feed intolerance persists. has been without nutrition since 06/24. Started on PPN 06/30, ->TPN 07/01 Plan: Neuro: Acute Metabolic Encephalopathy Agitated Delirium - improving. Schizoaffective disorder/bipolar disorder History of alcohol abuse History of CVA Monitor neuro status. Resumed sedation with Versed gtt on 07/01. Chin continues on Versed and Precedex infusion for ventilator synchrony and analgesia MRI brain 06/22: No acute ischemic events, no hemorrhage Lactulose discontinued EEG showed mod. encephalopathy Neuro is following. Dr. Rosibel Cheatham 10mg IM q12h prn for agitation CV: Uncontrolled hypertension - resolved. hyperlipidemia Monitor HR and BP keep MAP>65mmHg Hold antihypertensive meds ( Norvasc 5mg daily, clonidine 0.3mg po q8h, Lopressor 50mg Q12) 2-D echo with normal LV/RV function Pulmo: Acute respiratory failure requiring mechanical ventilation - persistent. COPD exacerbation Resolving community acquired pneumonia Intubated and placed on mechanical ventilation on 06/04. Continue with vent support keep sat >92%. Vent bundle, bronchodilators, on prednisone taper On PRVC CTA chest negative for PE. trach 06/[address] Sapp/Alexander continue daily SBTs. t-piece trials if tolerated. Continue to attempt CPAP trials GI/liver: GERD Acute protein calorie malnutrition- severe 06/23 KUB abdomen: Mild gaseous distention of bowel Ct abd/pelvis 06/23: Pneumatosis involving cecum and transverse colon concerning for ischemia. C. Diff negative hold bowel regimen. Surgery following patient for ischemic colitis- no surgical intervention recommended at this time and they have signed off. I discussed case with Dr. Anival Madden covering for Dr. Monroe on 06/30 as patient continues to have ileus with bilious output from PEG tube and not tolerating tube feeds. hold tube feeds, keep reglan iv. restart tube feeds 06/29 after 24h of reglan. having regular bowel movements. passing flatus. Consulted GI and view of ileus for evaluation of ileus and ischemic colitis. They're planning colonoscopy for further evaluation. Started PPN on 06/30 as unable to tolerate PEG tube feeds. PICC line placed and was switched to TPN on 07/01 KUB done on 06/29 with dilated small and large bowel loops. 07/02: Discussed with Dr. Caraballo requested to restart tube feeds. Neurosurgery has signed off 07/04 Follow-up KUB -slight improvement in dilated small bowel. No pneumatosis 07/04 Erythromycin 200 mg every 6 hours IV started , patient continues on metoclopramide, PEG tube clamped for 24 hours 07/05 Trickle feeds initiated , minimal residuals. Tentative plan for possible EGD next week per GI Renal/: ROSENDO/ CKD - resolved. Rhabdomyolysis - resolved. Acute intravascular volume overload- resolved. Metabolic alkalosis- resolving. Monitor renal function, electrolytes replacement per protocol. saline lock ivf. l ID: Fungemia- resolved. Community Acquired Pneumonia- resolved. Ischemic colitis Sepsis [facility] Associated pneumonia with pseudomonas/e.coli completed full 14 day course of micagunfin for fungemia. Continue Zosyn. Micafungin added per ID CT abdomen pelvis on 06/23 shows pneumatosis involving cecum and transverse colon consistent with ischemic colitis. Patient evaluated by general surgery Dr. Monroe who at this time recommends continuing IV fluids and antibiotics and he will be available for surgery if patient develops evidence of peritonitis or worsens clinically. ID is following Sputum cx: E.coli on 06/04, sputum 06/10: normal resp tamara BC 06/14, 06/19 : NGTD, Sputum cx 06/21: E.coli, Pseudomonas Endocrine: Hyperglycemia of critical illness SSI medium scale, q4h Heme: Anemia secondary to chronic disease Monitor CBC. Prophylaxis: Pepcid/SCDs. SQ Lovenox Lines: Right sided PICC line placed 06/30 Level 3 follow up D/W [employer] at bedside (Ct), and mother Mrs. Reilly at bedside. Mother states patient would not want to be on mechanical ventilation long-term. Patient's mother also stated that the patient never wanted to be intubated, initially. Would like to discuss goals of treatment, should the patient continued to fail CPAP trials. Palliative care has been consulted to define goals of care. Physician Elvira Null MD Jul 08, 2017 06:53
[2017-07-08] MEDS: DEXT 5%-NACL 0.9% 1000 ML INJ 1,000 ML IV SCH (08:10)
[2017-07-08] MEDS: RESP: ALBUTEROL 2.5 MG/IPRATROPIUM 0.5 MG NEB (SCH) INH ×3 (08:27→19:47)
[2017-07-08] MEDS: INSULIN DETEMIR 100 UNITS/ML VIAL SQ SCH ×2 (09:00→20:09)
[2017-07-08] MEDS: SODIUM CHLORIDE 0.9% FLUSH 10 ML FLUSH IV FLUSH SCH ×3 (09:00→20:09)
[2017-07-08] MEDS: guanFACINE HCL 1 MG TAB PO SCH ×2 (09:00→20:08)
[2017-07-08] MEDS: NUTRISOURCE FIBER POWDER 1 PACK G-TUBE SCH ×2 (09:00→20:09)
[2017-07-08] MEDS: CHLORHEXIDINE 0.12% (ORAL KIT) 15 ML CUP MT SCH ×2 (09:38→20:10)
[2017-07-08] MEDS: SENNOSIDES SYRUP 8.8 MG/5 ML CUP PO SCH (09:39)
--- NOTE | 2017-07-08 09:39 | RADRPT ---
EXAM DATE/TIME: 07/08/2017 07:52 [facility] COMPARISON: ABDOMEN KUB ONLY, July 04, 2017, 3:35. INDICATIONS : Evaluate for distention. MEDICAL HISTORY : Cardiovascular disease. Hypertension Cirrhosis. Hep C CVA SURGICAL HISTORY : None. ENCOUNTER: Subsequent ACUITY: 2 weeks PAIN SCORE: Non-responsive. LOCATION: Bilateral Abdomen FINDINGS: Supine view of the abdomen was performed. Examination is limited by body habitus and some motion. How ever, there does appear to be improved small bowel dilatation in the midabdomen. Evaluation for pneum atosis or free air is not possible given technique. Remainder of the exam is unchanged. CONCLUSION: 1. Limited examination with apparent mild interval improvement of central small bowel dilatation. Shan Davis MD on July 08, 2017 at 9:35 Board Certified Radiologist. This report was verified electronically.
[2017-07-08] MEDS: FAMOTIDINE 20 MG/2 ML VIAL IV PUSH SCH ×2 (09:40→23:32)
[2017-07-08] MEDS: MIDAZOLAM 100 MG/NS 100 ML DRIP Premix IV PRN ×2 (09:43→16:52)
[2017-07-08] MEDS: LORazepam 2 MG/ML VIAL IV PRN (10:50)
[2017-07-08] MEDS: HALOPERIDOL LACTATE 5 MG/ML AMP IV PUSH PRN (10:51)
[2017-07-08] MEDS: HYDROmorphone HCL PF 2 MG/ML VIAL IV PRN (15:20)
--- NOTE | 2017-07-08 15:22 | HHI.IDPN ---
Subjective Subjective Remarks afebrile + copious secretions but seem better on synch'd on vent abd xray improved low grade fever on 1 occasion Antibiotics Zosyn: started 06/24 Lines PIV Past Medical History COPD Hypertension Hyperlipidemia CVA Schizoaffective disorder Bipolar disorder GERD Acute renal failure Arthritis Alcohol withdrawal seizures Past Surgical History Left partial pneumonectomy Left hip surgery Allergies: Coded Allergies: hydrochlorothiazide (Unverified Allergy, Intermediate, EFFECTS HIS SODIUM LEVEL, 02/12/17) PT STATES HE IS NOT ALLERGIC codeine (Unverified Adverse Reaction, Severe, 02/12/17) PT STATES HE IS NOT ALLERGIC Objective . Vital Signs Date Time Temp Pulse Resp B/P (MAP) Pulse Ox O2 Delivery O2 Flow Rate FiO2 07/08/17 14:00 72 33 113/61 (78) 94 07/08/17 14:00 72 07/08/17 13:30 74 35 127/72 (90) 96 07/08/17 13:30 74 07/08/17 13:00 73 07/08/17 13:00 73 42 108/64 (79) 96 07/08/17 12:47 97 40 07/08/17 12:31 68 07/08/17 12:31 68 46 138/76 (96) 100 07/08/17 12:00 40 07/08/17 12:00 98.9 64 35 115/65 (82) 97 07/08/17 12:00 64 07/08/17 10:30 71 61 128/80 (96) 97 07/08/17 10:30 71 07/08/17 10:00 69 47 138/77 (97) 99 07/08/17 10:00 69 07/08/17 09:30 68 31 129/74 (92) 96 07/08/17 09:30 68 07/08/17 09:00 71 68 124/71 (88) 98 07/08/17 09:00 71 07/08/17 08:31 100 40 07/08/17 08:30 63 07/08/17 08:30 63 44 120/76 (91) 98 07/08/17 08:00 99.6 61 43 94 07/08/17 08:00 40 07/08/17 08:00 61 07/08/17 06:00 56 07/08/17 04:20 100 40 07/08/17 04:00 40 07/08/17 04:00 62 07/08/17 04:00 97.9 62 32 121/58 (79) 98 07/08/17 02:00 61 07/08/17 01:02 96 40 07/08/17 00:00 98.7 63 29 111/59 (76) 94 07/08/17 00:00 40 07/08/17 00:00 63 07/07/17 22:00 67 07/07/17 20:09 97 40 07/07/17 20:00 99.1 64 29 92/52 (65) 97 07/07/17 20:00 40 07/07/17 20:00 64 07/07/17 18:00 68 07/07/17 16:00 100.1 68 31 95/55 (68) 96 07/07/17 16:00 40 07/07/17 16:00 72 . Laboratory Tests Test 07/07/17 04:52 07/08/17 05:20 White Blood Count 9.0 TH/MM3 9.5 TH/MM3 Red Blood Count 2.58 MIL/MM3 2.55 MIL/MM3 Hemoglobin 7.7 GM/DL 7.5 GM/DL Hematocrit 22.8 % 22.4 % Mean Corpuscular Volume 88.2 FL 87.9 FL Mean Corpuscular Hemoglobin 29.7 PG 29.3 PG Mean Corpuscular Hemoglobin Concent 33.7 % 33.3 % Red Cell Distribution Width 15.2 % 15.0 % Platelet Count 346 TH/MM3 332 TH/MM3 Mean Platelet Volume 7.3 FL 7.1 FL Neutrophils (%) (Auto) 71.5 % Lymphocytes (%) (Auto) 16.2 % Monocytes (%) (Auto) 7.9 % Eosinophils (%) (Auto) 3.2 % Basophils (%) (Auto) 1.2 % Neutrophils # (Auto) 6.5 TH/MM3 Lymphocytes # (Auto) 1.5 TH/MM3 Monocytes # (Auto) 0.7 TH/MM3 Eosinophils # (Auto) 0.3 TH/MM3 Basophils # (Auto) 0.1 TH/MM3 CBC Comment AUTO DIFF Differential Total Cells Counted 100 Neutrophils % (Manual) 68 % Band Neutrophils % 5 % Lymphocytes % 10 % Monocytes % 5 % Eosinophils % 3 % Neutrophils # (Manual) 7.3 TH/MM3 Metamyelocytes 5 % Myelocytes 3 % Differential Comment FINAL DIFF MANUAL Plasma Cells 1 % Platelet Estimate NORMAL Platelet Morphology Comment NORMAL Red Cell Morphology Comment NORMAL Laboratory Tests Test 07/07/17 04:52 07/08/17 05:20 Blood Urea Nitrogen 13 MG/DL 14 MG/DL Creatinine 0.65 MG/DL 0.62 MG/DL Random Glucose 220 MG/DL 223 MG/DL Total Protein 6.5 GM/DL Albumin 1.5 GM/DL Calcium Level 8.1 MG/DL 8.3 MG/DL Phosphorus Level 3.1 MG/DL Magnesium Level 1.6 MG/DL Alkaline Phosphatase 115 U/L Aspartate Amino Transf (AST/SGOT) 12 U/L Alanine Aminotransferase (ALT/SGPT) 20 U/L Total Bilirubin 0.4 MG/DL Sodium Level 134 MEQ/L 136 MEQ/L Potassium Level 4.1 MEQ/L 3.9 MEQ/L Chloride Level 101 MEQ/L 103 MEQ/L Carbon Dioxide Level 26.5 MEQ/L 26.1 MEQ/L Anion Gap 7 MEQ/L 7 MEQ/L Estimat Glomerular Filtration Rate 125 ML/MIN 132 ML/MIN Triglycerides Level 205 MG/DL Imaging Last Impressions Abdomen X-Ray 07/08/17 0000 Signed Impressions: Service Date/Time: Saturday, July 08, 2017 07:52 - CONCLUSION: 1. Limited examination with apparent mild interval improvement of central small bowel dilatation. Shan Davis MD Chest X-Ray 07/07/17 0600 Signed Impressions: Service Date/Time: Friday, July 07, 2017 04:08 - CONCLUSION: No significant interval change in left greater than right lower lung zone pulmonary parenchymal opacity. Rosas Rowell MD CT Angiography 07/01/17 0000 Signed Impressions: Service Date/Time: Saturday, July 01, 2017 23:54 - CONCLUSION: 1. Study limited by motion. 2. No pulmonary emboli. 3. Worsening consolidation within the right upper lobe. Infectious etiology suspected. 4. Small bilateral pleural effusions and associated passive atelectasis. This is new. 5. Emphysematous changes. 6. 6 mm left upper lobe pulmonary nodule. Yuri Isidro Jr., MD Abdomen/Pelvis CT 07/01/17 0000 Signed Impressions: Service Date/Time: Saturday, July 01, 2017 23:54 - CONCLUSION: 1. Breathing degraded study. 2. Dilatation of proximal jejunal loops which slowly taper. No obstructing mass or lesion. This could relate to a focal ileus. I cannot completely exclude a bowel obstruction. Small amount of free fluid. 3. Mild inflammatory change involving the mesentery adjacent to the ascending colon has improved somewhat. No pneumatosis involving the bowel observed. Yuri Isidro Jr., MD Brain MRI 06/22/17 0000 Signed Impressions: Service Date/Time: Thursday, June 22, 2017 12:10 - CONCLUSION: All ischemic changes, negative for acute ischemic event. Negative for parenchymal hemorrhage. Usman Pimentel MD FACR Head CT 06/04/17 0000 Signed Impressions: Service Date/Time: Sunday, June 04, 2017 18:46 - CONCLUSION: 1. No significant change compared to 06/03/17. 2. No acute infarct, acute hemorrhage , mass effect or extra-axial fluid collection. 3. Scattered old lacunar infarcts within the bilateral basal ganglia. 4. Mild periventricular and subcortical white matter small vessel ischemic changes bilaterally. 5. Old right posterior parietal infarct. 6. Chronic opacification of right mastoid air cells. Mckay Stone MD Chest CT 06/04/17 0000 Signed Impressions: Service Date/Time: Sunday, June 04, 2017 18:49 - CONCLUSION: 1. Right mid lung field and posterior bibasilar patchiness consistent with probable areas of pneumonia and/or atelectasis. Clinical correlation is recommended. 2. Tiny bilateral pleural effusions. 3. Cardiomegaly and coronary artery calcifications. 4. Minimal scattered emphysematous changes bilaterally. Mckay Stone MD Physical Exam GENERAL: Sedated, on the vent, NAD. SKIN: Cool, dry. No generalized rash EYES: Pupils equal and round and reactive. Extraocular motions intact. No scleral icterus. No injection or drainage. NECK: trach in place , site ok CARDIOVASCULAR: Regular rate and rhythm without murmurs, gallops, or rubs. No JVD. Peripheral pulses symmetric. RESPIRATORY/CHEST: Coarse BS bilaterally GASTROINTESTINAL: Abdomen, less distended no tenderness, not guarding, BS hypoactive. GENITOURINARY: Without palpable bladder distension. condom catheter in place with clear yellow MUSCULOSKELETAL: Extremities without clubbing, cyanosis. (+) pedal edema. No calf tenderness. No mottling or clubbing. NEUROLOGICAL: moves all 4 extremities, awake, alert, follows commands PSYCHIATRIC: cooperative LINE: No evidence of infection Assessment & Plan Remarks IMPRESSION Mental status change, PNA, E.coli, S/P Rx Acute VDRF, failure to wean Multiple med problems Leukocytosis, better Probable ischemic colitis - clinically and radiologically improving - CT better as far as pneumatosis C glabrata sepsis, S/P Rx New HCAP PNA (PSAE and E coli in sputum) both S to ZOsyn PLAN Continue Zosyn for now; may be stop in the next 48-72 hrs with clinical improvement will rechk sputum clx Ml Wiseman MD Jul 08, 2017 15:22
[2017-07-08] MEDS: CLINIMIX 5/25 (Custom) 2000 mL- >42 mls/hr IV-CENTRAL SCH ×9 (16:52)
--- NOTE | 2017-07-08 18:31 | PD.CONS ---
Consult Service Palliative Care . Consult Requested By Dr. Gutierrez . Primary Care Physician Adonay Clark M.D. . Reason for Consultation a. To assist with evaluation and management of symptoms including:dyspnea, pain. b. To assist medical decision maker(s) with: better understanding of current medical conditions; weighing benefits/burdens of medical treatment options; making medical treatment decisions. . HPI History of Present Illness Mr. Reilly is a 61 year old male with past medical history of ED, hypertension , hyperlipidemia, CVA, schizoaffective disorder, bipolar disorder, GERD, renal failure and arthritis. Patient has been living in [facility] facility [facility] since November 2015. Notes indicate that prior to [facility] admission he was living in [facility]. Patient presented to [facility] emergency department on 06/03/17 from [facility] for evaluation of altered mental status. Patient had been treated for right lower lobe pneumonia in May. Upon arrival to the emergency department the patient was and moderate respiratory distress with tachypnea using accessory muscles to breathe. Lungs were reportedly congested. Patient was confused with slightly slurred speech. Was on oxygen via nasal cannula with oxygen saturation 94%. Initial emergency room evaluation revealed: * CT head no acute infarct, hemorrhage, mass effect or extra axial fluid collection. Also revealed old lacunar infarcts within the bilateral basal ganglia, mild periventricular and subcortical white matter small vessel ischemic changes bilaterally. * Chest x-ray scattered bibasilar patching is consistent with pneumonia. Patient was admitted to ICU for pneumonia, acute respiratory failure, altered mental status. Heparin drip was initiated for possible PE and later discontinued for low suspicion of PE on imaging. On 06/04/17 patient developed worsening agitation, disorientation and confusion. Respiratory status continued to decline with tachypnea and hypoxia, saturations dropped into the mid 80s. Critical care was consulted. Patient was emergently intubated and placed on mechanical ventilation. Hospital course has been complicated by fungemia, uncertain etiology. Ileus requiring TPN. Some improvement, though abdomen remains distended and barely tolerating trickle feeds. Mother, Tess / HCS has indicated to staff that patient would not want prolonged mechanical ventilation. Palliative consulted to assist with further clarification of treatment goals. . Function/Cognitive Trajectory Ongoing decline over the past few years. . Review of Systems ROS Limitations: Altered Mental Status Constitutional: COMPLAINS OF: Fatigue, Generalized weakness Respiratory: COMPLAINS OF: Shortness of breath Cardiovascular: COMPLAINS OF: Dyspnea on Exertion Gastrointestinal: COMPLAINS OF: Abdominal pain, Constipation, Diarrhea, Bloating Hematologic/Lymphatics: COMPLAINS OF: Bruising Neurologic: COMPLAINS OF: Poor Balance Psychiatric: COMPLAINS OF: Agitation Other ROS: ROS per mother and EMR review, pt sedated on vent . Past Family Social History Coded Allergies: hydrochlorothiazide (Unverified Allergy, Intermediate, EFFECTS HIS SODIUM LEVEL, 02/12/17) PT STATES HE IS NOT ALLERGIC codeine (Unverified Adverse Reaction, Severe, 02/12/17) PT STATES HE IS NOT ALLERGIC Past Medical History COPD Hypertension Hyperlipidemia CVA Schizoaffective disorder Bipolar disorder GERD Acute renal failure Arthritis Alcohol withdrawal seizures . Past Surgical History Left partial pneumonectomy Left hip surgery . Reported Medications Reported Meds & Active Scripts Active Reported Proair Hfa 8.5 GM Inh (Albuterol Sulfate) 90 Mcg/Act Aer 1 Puff INH Q4H PRN 108 mcg/actuation Venlafaxine ER 24 HR (Venlafaxine HCl) 150 Mg Tab 150 Mg PO DAILY Trazodone (Trazodone HCl) 150 Mg Tablet 150 Mg PO HS Tramadol (Tramadol HCl) 50 Mg Tab 50 Mg PO Q6H PRN Tamsulosin (Tamsulosin HCl) 0.4 Mg Cap 0.4 Mg PO HS Risperidone 1 Mg Tab 1 Mg PO HS Meloxicam 15 Mg Tab 15 Mg PO DAILY Lisinopril 20 Mg Tab 20 Mg PO DAILY Gabapentin 300 Mg Cap 300 Mg PO TID Donepezil 5 Mg Tab 5 Mg PO HS Benztropine (Benztropine Mesylate) 0.5 Mg Tab 1 Mg PO HS Atorvastatin (Atorvastatin Calcium) 40 Mg Tab 40 Mg PO HS . Current Medications Medications (Trade) Dose Ordered Sig/Solange Route Start Time Stop Time Status Last Admin (Narcan Inj) 0.4 mg UNSCH PRN IV PUSH 06/03/17 21:45 (Duoneb Neb) 1 ampule Q2HR NEB PRN NEB 06/03/17 22:45 07/02/17 02:54 (Lipitor) 40 mg HS PO 06/04/17 21:00 Future Hold 06/22/17 20:49 (Cogentin) 1 mg HS PO 06/04/17 21:00 Future Hold 06/22/17 20:49 (Aricept) 5 mg HS PO 06/04/17 21:00 Future Hold 06/22/17 21:18 (risperDAL) 1 mg HS PO 06/04/17 21:00 Future Hold 06/22/17 20:49 (Flomax) 0.4 mg HS PO 06/04/17 21:00 Future Hold 06/22/17 20:49 (Effexor Xr) 150 mg DAILY PO 06/04/17 09:00 Future Hold 06/23/17 09:59 Miscellaneous Information 1 Q361D XX 06/04/17 03:45 (Chlorhexidine 2% Cloth) Taper DAILY@04 TOP 06/04/17 04:00 05/31/18 03:59 07/06/17 04:00 (Chlorhexidine 2% Cloth) 3 pack UNSCH PRN TOP 06/04/17 03:45 (Norvasc) 5 mg DAILY PO 06/04/17 12:00 Future Hold 06/22/17 08:21 (Apresoline Inj) 10 mg Q4H PRN IV PUSH 06/04/17 13:00 07/06/17 01:51 (NS Flush) 2 ml UNSCH PRN IV FLUSH 06/04/17 16:45 06/27/17 21:53 (NS Flush) 2 ml BID IV FLUSH 06/04/17 21:00 07/08/17 09:39 (Peridex 0.12% Liq) 15 ml BID@08,20 MT 06/04/17 20:00 07/08/17 09:38 (Trandate Inj) 20 mg Q4H PRN IV PUSH 06/04/17 17:00 06/10/17 15:35 (Lovenox Inj) 40 mg Q24H SQ 06/05/17 17:00 Future Hold 06/16/17 15:33 (Tylenol) 650 mg Q4H PRN PO 06/10/17 12:15 Future Hold 06/23/17 02:33 (Pepcid) 20 mg Q12HR PO 06/10/17 21:00 Future Hold 06/23/17 09:58 (Mycostatin Powder) 1 applic Q12HR PRN TOPICAL 06/14/17 11:00 07/02/17 09:16 (Mag-Ox) 800 mg UNSCH PRN PO 06/15/17 07:00 07/06/17 08:41 Magnesium Sulfate 4 gm/Sodium Chloride 100 ml @ 50 mls/hr UNSCH PRN IV 06/15/17 07:00 Magnesium Sulfate 2 gm/Sodium Chloride 100 ml @ 50 mls/hr UNSCH PRN IV 06/15/17 07:00 06/30/17 14:02 Potassium Chloride 100 ml @ 50 mls/hr Q2H PRN IV 06/15/17 07:00 06/17/17 18:35 Potassium Chloride 100 ml @ 50 mls/hr Q2H PRN IV 06/15/17 07:00 06/16/17 10:30 Potassium Chloride 100 ml @ 50 mls/hr Q2H PRN IV 06/15/17 07:00 Potassium Chloride 100 ml @ 25 mls/hr UNSCH PRN IV 06/15/17 07:00 07/01/17 02:20 (K-Phos) 2,000 mg Q4H PRN PO 06/15/17 07:00 (K-Phos) 2,000 mg UNSCH PRN PO/TUBE 06/15/17 07:00 Potassium Phosphate 30 mmol/ Sodium Chloride 260 ml @ 42 mls/hr UNSCH PRN IV 06/15/17 07:00 06/30/17 14:02 Sodium Phosphate 30 mmol/Sodium Chloride 250 ml @ 42 mls/hr UNSCH PRN IV 06/15/17 07:00 (Geodon Inj) 10 mg Q12H PRN IM 06/15/17 07:15 06/19/17 10:24 (Nutrisource Fiber Powder) 2 pack BID G-TUBE 06/15/17 09:00 07/08/17 09:00 (Tenex) 2 mg Q12HR PO 06/19/17 14:00 Future hold 07/08/17 09:00 (Senna Liq) 8.8 mg DAILY PO 06/23/17 09:00 07/08/17 09:39 (Zofran Inj) 4 mg Q8HR PRN IV PUSH 06/23/17 16:00 06/28/17 18:32 (Pepcid Inj) 20 mg Q12H IV PUSH 06/23/17 23:00 07/08/17 09:40 Piperacillin Sod/ Tazobactam Sod 100 ml @ 200 mls/hr Q6H IV 06/24/17 14:00 07/08/17 13:43 (Dilaudid Pf Inj) 0.5 mg Q4H PRN IV 06/25/17 22:15 07/08/17 15:20 (Reglan Inj) 10 mg Q8HR IV PUSH 06/27/17 22:00 07/08/17 13:43 (Haldol Inj) 5 mg Q4H PRN IV PUSH 06/28/17 08:45 07/08/17 10:51 Dextrose/Sodium Chloride 1,000 ml @ 60 mls/hr [id number] IV 06/29/17 07:30 06/30/17 20:14 (Ativan Inj) 2 mg Q6H PRN IV 06/29/17 16:45 07/08/17 10:50 (NS Flush) See Protocol DAILY IV FLUSH 07/01/17 09:00 07/08/17 09:00 (NS Flush) See Protocol UNSCH PRN IV FLUSH 06/30/17 16:00 (Heparin Central Flush) See Protocol DAILY IV FLUSH 07/01/17 09:00 07/08/17 10:04 (Heparin Central Flush) See Protocol UNSCH PRN IV FLUSH 06/30/17 16:00 (NS Flush) UNSCH PRN IV FLUSH 06/30/17 16:00 Midazolam HCl 100 ml @ 2 mls/hr TITRATE PRN IV 07/01/17 08:00 07/08/17 16:52 Fat Emulsion Intravenous 250 ml @ 31.25 mls/ hr Q24H IV-CENTRAL 07/01/17 20:00 07/07/17 20:24 Dexmedetomidine HCl 1000 mcg/ Sodium Chloride 250 ml @ 4.92 mls/hr TITRATE PRN IV 07/03/17 21:30 07/08/17 12:05 (D50w (Vial) Inj) 50 ml UNSCH PRN IV PUSH 07/05/17 05:15 (Glucagon Inj) 1 mg UNSCH PRN OTHER 07/05/17 05:15 (NovoLIN R SUPPLEMENTAL SCALE) 1 Q4HR SQ 07/05/17 08:00 07/08/17 16:00 (Duoneb Neb) 1 ampule TID NEB INH 07/06/17 14:00 07/08/17 12:47 Sodium Chloride 11 meq/Sodium Acetate 59 meq/ Potassium Chloride 40 meq/ Sodium Phosphate 40 meq/Magnesium Chloride 10 meq/ Calcium Chloride 9 meq/ Multivitamins 10 ml/Folic Acid 1 mg/Amino Acids/ Dextrose 2,084.1437 ml @ 83 mls/hr Q24H IV-CENTRAL 07/07/17 20:00 07/08/17 16:52 (Levemir Inj) 12 units Q12HR SQ 07/08/17 09:00 07/08/17 09:00 (fentaNYL INJ) 50 mcg NOW ONCE IV 07/08/17 17:45 07/08/17 17:46 (fentaNYL INJ) 200 mcg UNSCH X1 PRN IV 07/08/17 17:45 07/08/17 19:00 Family History Father . Brother alive and well. Mother with history of heart disease , alive. . Substance Use Tobacco: Alcohol: Prescription med abuse: Illicits: Psychosocial History . No children. Has been longterm dependent for the past few years. Lived in [facility] prior to longterm placement. Supported by his mother who lives in [place] and brother who lives in [place]. . Spiritual/Cultural Factors Rastafarian isabel. . Living Will: Copy in medical record Health Care Surrogate: Copy in medical record Date completed: 09/27/2015 . Health Care Surrogate(s): Designation of healthcare surrogate: Primary healthcare surrogate: Inés Javed, aunt. I spoke with her on 07/08/17 she DOES NOT wish to serve as HCS. Alternate HCS: Tess or Mckay Reilly, parents. Father . Mother is willing to serve as healthcare surrogate. . Documented care wishes: Living will states he would not want to live on [facility] or be bedbound. . Today's verbally stated goals: Patient incapacitated to participate in healthcare decision making, will not regain capacity. Family/friends goals: Mother elected alternate code, intubation only. She feels that the patient would not want to be on long-term mechanical ventilation based on prior conversations and written advance directives. Would like to speak with her son , Pedro Luis prior to making any additional decisions. She states that it may be "time to let him go." Ethical and Legal Issues Designation of healthcare surrogate: Primary healthcare surrogate: Inésvivi Javed, aunt. I spoke with her on 07/08/17 she DOES NOT wish to serve as HCS. Alternate HCS: Tess or Mckay Reilly, parents. Father . Mother is willing to serve as healthcare surrogate. . Physical Exam Vital Signs Date Time Temp Pulse Resp B/P (MAP) Pulse Ox O2 Delivery O2 Flow Rate FiO2 07/08/17 17:26 100 45 07/08/17 16:30 63 07/08/17 16:00 98.5 65 33 138/74 (95) 99 07/08/17 16:00 40 07/08/17 16:00 65 07/08/17 14:00 72 33 113/61 (78) 94 07/08/17 14:00 72 07/08/17 13:30 74 35 127/72 (90) 96 07/08/17 13:30 74 07/08/17 13:00 73 07/08/17 13:00 73 42 108/64 (79) 96 07/08/17 12:47 97 40 07/08/17 12:31 68 07/08/17 12:31 68 46 138/76 (96) 100 07/08/17 12:00 40 07/08/17 12:00 98.9 64 35 115/65 (82) 97 07/08/17 12:00 64 07/08/17 10:30 71 61 128/80 (96) 97 07/08/17 10:30 71 07/08/17 10:00 69 47 138/77 (97) 99 07/08/17 10:00 69 07/08/17 09:30 68 31 129/74 (92) 96 07/08/17 09:30 68 07/08/17 09:00 71 68 124/71 (88) 98 07/08/17 09:00 71 07/08/17 08:31 100 40 07/08/17 08:30 63 07/08/17 08:30 63 44 120/76 (91) 98 07/08/17 08:00 99.6 61 43 94 07/08/17 08:00 40 07/08/17 08:00 61 07/08/17 06:00 56 07/08/17 04:20 100 40 07/08/17 04:00 40 07/08/17 04:00 62 07/08/17 04:00 97.9 62 32 121/58 (79) 98 07/08/17 02:00 61 07/08/17 01:02 96 40 07/08/17 00:00 98.7 63 29 111/59 (76) 94 07/08/17 00:00 40 07/08/17 00:00 63 07/07/17 22:00 67 07/07/17 20:09 97 40 07/07/17 20:00 99.1 64 29 92/52 (65) 97 07/07/17 20:00 40 07/07/17 20:00 64 07/07/17 18:00 68 07/08/17 07/09/17 19:00 07:00 Intake Total 350 ml Balance 350 ml IV Total 350 ml Exam CONSTITUTIONAL/GENERAL: This is an adequately nourished patient, sedated on mechanical ventilation TUBES/LINES/DRAINS: tracheostomy to vent, PEG tube, PIV left forearm, right upper extremity pick line, soft wrist restraints, condom catheter, SCD's, PODUS boots. SKIN: No jaundice, rashes, or lesions. Ecchymoses on upper extremities. No wounds seen anteriorly. Skin temperature appropriate. Not diaphoretic. HEAD: Atraumatic. Normocephalic. EYES: Pupils equal and round and reactive.No scleral icterus. No injection or drainage. Fundi not examined. ENT: unable to assess hearing. Nose without bleeding or purulent drainage. poor dentition. NECK: tracheostomy to mechanical ventilation. CARDIOVASCULAR: Regular rate and rhythm without murmurs. RESPIRATORY/CHEST: mildly labored, shallow respirations on mechanical vent, tachypneic. Diminished breath sounds bilaterally. GASTROINTESTINAL: Abdomen soft,distended. Bowel sounds hypoactive. Trickle TF at 10cc/hr. GENITOURINARY: Without palpable bladder distension. Catheter in place. MUSCULOSKELETAL: Bilateral UE edema. No mottling or clubbing. LYMPHATICS: Not examined. NEUROLOGICAL: Sedated. Withdraws to pain in left UE, otherwise no response. PSYCHIATRIC: Sedated. . Diagnostic Tests Laboratory Laboratory Tests Test 07/06/17 05:00 07/06/17 08:45 07/07/17 04:52 07/07/17 05:44 White Blood Count 9.5 TH/MM3 (4.0-11.0) 9.0 TH/MM3 (4.0-11.0) Red Blood Count 2.74 MIL/MM3 (4.50-5.90) 2.58 MIL/MM3 (4.50-5.90) Hemoglobin 8.1 GM/DL (13.0-17.0) 7.7 GM/DL (13.0-17.0) Hematocrit 23.8 % (39.0-51.0) 22.8 % (39.0-51.0) Mean Corpuscular Volume 86.7 FL (80.0-100.0) 88.2 FL (80.0-100.0) Mean Corpuscular Hemoglobin 29.4 PG (27.0-34.0) 29.7 PG (27.0-34.0) Mean Corpuscular Hemoglobin Concent 34.0 % (32.0-36.0) 33.7 % (32.0-36.0) Red Cell Distribution Width 15.0 % (11.6-17.2) 15.2 % (11.6-17.2) Platelet Count 302 TH/MM3 (150-450) 346 TH/MM3 (150-450) Mean Platelet Volume 7.1 FL (7.0-11.0) 7.3 FL (7.0-11.0) Blood Urea Nitrogen 9 MG/DL (7-18) 13 MG/DL (7-18) Creatinine 0.54 MG/DL (0.60-1.30) 0.65 MG/DL (0.60-1.30) Random Glucose 74 MG/DL (74-106) 220 MG/DL (74-106) Calcium Level 7.9 MG/DL (8.5-10.1) 8.1 MG/DL (8.5-10.1) Phosphorus Level 2.7 MG/DL (2.5-4.9) 3.1 MG/DL (2.5-4.9) Magnesium Level 1.4 MG/DL (1.5-2.5) 1.6 MG/DL (1.5-2.5) Sodium Level 136 MEQ/L (136-145) 134 MEQ/L (136-145) Potassium Level 3.7 MEQ/L (3.5-5.1) 4.1 MEQ/L (3.5-5.1) Chloride Level 104 MEQ/L (98-107) 101 MEQ/L (98-107) Carbon Dioxide Level 24.6 MEQ/L (21.0-32.0) 26.5 MEQ/L (21.0-32.0) Anion Gap 7 MEQ/L (5-15) 7 MEQ/L (5-15) Estimat Glomerular Filtration Rate 155 ML/MIN (>89) 125 ML/MIN (>89) Serum Osmolality 279 MOSM/KG (275-295) Urine Color LIGHT-YELLOW (YELLW/STRAW) Urine Turbidity CLEAR (CLEAR) Urine pH 7.0 (5.0-8.5) Urine Specific [place] 1.009 (1.002-1.035) Urine Protein TRACE mg/dL (NEG-TRACE) Urine Glucose (UA) NEG mg/dL (NEG) Urine Ketones NEG mg/dL (NEG) Urine Occult Blood TRACE (NEG) Urine Nitrite NEG (NEG) Urine Bilirubin NEG (NEG) Urine Urobilinogen LESS THAN 2.0 MG/DL (LESS Urine Leukocyte Esterase NEG (NEG) Microscopic Urinalysis Comment CULT NOT INDICATED Urine Eosinophils NONE SEEN /HPF (NONE SEEN) Urine Osmolality 283 MOSM/KG (300-1300) Urine Random Creatinine 27.3 MG/DL Urine Random Sodium 66 MEQ/L Neutrophils (%) (Auto) 71.5 % (16.0-70.0) Lymphocytes (%) (Auto) 16.2 % (9.0-44.0) Monocytes (%) (Auto) 7.9 % (0.0-8.0) Eosinophils (%) (Auto) 3.2 % (0.0-4.0) Basophils (%) (Auto) 1.2 % (0.0-2.0) Neutrophils # (Auto) 6.5 TH/MM3 (1.8-7.7) Lymphocytes # (Auto) 1.5 TH/MM3 (1.0-4.8) Monocytes # (Auto) 0.7 TH/MM3 (0-0.9) Eosinophils # (Auto) 0.3 TH/MM3 (0-0.4) Basophils # (Auto) 0.1 TH/MM3 (0-0.2) CBC Comment AUTO DIFF Differential Total Cells Counted 100 Neutrophils % (Manual) 68 % (16-70) Band Neutrophils % 5 % (0-6) Lymphocytes % 10 % (9-44) Monocytes % 5 % (0-8) Eosinophils % 3 % (0-4) Neutrophils # (Manual) 7.3 TH/MM3 (1.8-7.7) Metamyelocytes 5 % (0-1) Myelocytes 3 % (0-0) Differential Comment FINAL DIFF MANUAL Plasma Cells 1 % (0-0) Platelet Estimate NORMAL (NORMAL) Platelet Morphology Comment NORMAL (NORMAL) Red Cell Morphology Comment NORMAL (NORMAL) Prothrombin Time 10.7 SEC (9.8-11.6) Prothromb Time International Ratio 1.1 RATIO Total Protein 6.5 GM/DL (6.4-8.2) Albumin 1.5 GM/DL (3.4-5.0) Alkaline Phosphatase 115 U/L (45-117) Aspartate Amino Transf (AST/SGOT) 12 U/L (15-37) Alanine Aminotransferase (ALT/SGPT) 20 U/L (12-78) Total Bilirubin 0.4 MG/DL (0.2-1.0) Triglycerides Level 205 MG/DL (42-150) Blood Gas Puncture Site RT RADIAL Blood Gas Patient Temperature 98.6 Blood Gas HCO3 25 mmol/L (22-26) Blood Gas Base Excess 0.7 mmol/L (-2-2) Blood Gas Oxygen Saturation 94 % (90-100) Arterial Blood pH 7.44 (7.380-7.420) Arterial Blood Partial Pressure CO2 37 mmHg (38-42) Arterial Blood Partial Pressure O2 87 mmHg (61-120) Arterial Blood Oxygen Content 10.5 Vol % (12.0-20.0) Arterial Blood Carboxyhemoglobin 1.1 % (0-4) Arterial Blood Methemoglobin 1.4 % (0-2) Blood Gas Hemoglobin 7.8 G/DL (12.0-16.0) Oxygen Delivery Device VENTILATOR Blood Gas Ventilator Setting SEE COMMENT Blood Gas Inspired Oxygen 40 % Test 07/08/17 05:20 White Blood Count 9.5 TH/MM3 (4.0-11.0) Red Blood Count 2.55 MIL/MM3 (4.50-5.90) Hemoglobin 7.5 GM/DL (13.0-17.0) Hematocrit 22.4 % (39.0-51.0) Mean Corpuscular Volume 87.9 FL (80.0-100.0) Mean Corpuscular Hemoglobin 29.3 PG (27.0-34.0) Mean Corpuscular Hemoglobin Concent 33.3 % (32.0-36.0) Red Cell Distribution Width 15.0 % (11.6-17.2) Platelet Count 332 TH/MM3 (150-450) Mean Platelet Volume 7.1 FL (7.0-11.0) Blood Urea Nitrogen 14 MG/DL (7-18) Creatinine 0.62 MG/DL (0.60-1.30) Random Glucose 223 MG/DL (74-106) Calcium Level 8.3 MG/DL (8.5-10.1) Sodium Level 136 MEQ/L (136-145) Potassium Level 3.9 MEQ/L (3.5-5.1) Chloride Level 103 MEQ/L (98-107) Carbon Dioxide Level 26.1 MEQ/L (21.0-32.0) Anion Gap 7 MEQ/L (5-15) Estimat Glomerular Filtration Rate 132 ML/MIN (>89) Result Diagram: 07/08/17 0520 07/08/17 0520 Microbiology Microbiology Date/Time Source Procedure Growth Status 07/01/17 12:09 Blood Peripheral Aerobic Blood Culture - Final NO GROWTH IN 5 DAYS Complete 07/01/17 12:09 Blood Peripheral Anaerobic Blood Culture - Final NO GROWTH IN 5 DAYS Complete 07/05/17 09:30 Sputum Expectorated Sputum Gram Stain - Final Complete 07/05/17 09:30 Sputum Culture - Final Pseudomonas Aeruginosa Escherichia Coli Complete 06/10/17 12:45 Urine Catheterized Urine Urine Culture - Final NO GROWTH IN 48 HOURS. Complete Imaging Last Impressions Abdomen X-Ray 07/08/17 0000 Signed Impressions: Service Date/Time: Saturday, July 08, 2017 07:52 - CONCLUSION: 1. Limited examination with apparent mild interval improvement of central small bowel dilatation. Shan Davis MD Chest X-Ray 07/07/17 0600 Signed Impressions: Service Date/Time: Friday, July 07, 2017 04:08 - CONCLUSION: No significant interval change in left greater than right lower lung zone pulmonary parenchymal opacity. Rosas Rowell MD CT Angiography 07/01/17 0000 Signed Impressions: Service Date/Time: Saturday, July 01, 2017 23:54 - CONCLUSION: 1. Study limited by motion. 2. No pulmonary emboli. 3. Worsening consolidation within the right upper lobe. Infectious etiology suspected. 4. Small bilateral pleural effusions and associated passive atelectasis. This is new. 5. Emphysematous changes. 6. 6 mm left upper lobe pulmonary nodule. Yuri Isidro Jr., MD Abdomen/Pelvis CT 07/01/17 0000 Signed Impressions: Service Date/Time: Saturday, July 01, 2017 23:54 - CONCLUSION: 1. Breathing degraded study. 2. Dilatation of proximal jejunal loops which slowly taper. No obstructing mass or lesion. This could relate to a focal ileus. I cannot completely exclude a bowel obstruction. Small amount of free fluid. 3. Mild inflammatory change involving the mesentery adjacent to the ascending colon has improved somewhat. No pneumatosis involving the bowel observed. Yuri Isidro Jr., MD Brain MRI 06/22/17 0000 Signed Impressions: Service Date/Time: Thursday, June 22, 2017 12:10 - CONCLUSION: All ischemic changes, negative for acute ischemic event. Negative for parenchymal hemorrhage. Usman Pimentel MD FACR Head CT 06/04/17 0000 Signed Impressions: Service Date/Time: Sunday, June 04, 2017 18:46 - CONCLUSION: 1. No significant change compared to 06/03/17. 2. No acute infarct, acute hemorrhage , mass effect or extra-axial fluid collection. 3. Scattered old lacunar infarcts within the bilateral basal ganglia. 4. Mild periventricular and subcortical white matter small vessel ischemic changes bilaterally. 5. Old right posterior parietal infarct. 6. Chronic opacification of right mastoid air cells. Mckay Stone MD Chest CT 06/04/17 0000 Signed Impressions: Service Date/Time: Sunday, June 04, 2017 18:49 - CONCLUSION: 1. Right mid lung field and posterior bibasilar patchiness consistent with probable areas of pneumonia and/or atelectasis. Clinical correlation is recommended. 2. Tiny bilateral pleural effusions. 3. Cardiomegaly and coronary artery calcifications. 4. Minimal scattered emphysematous changes bilaterally. Mckay Stone MD Procedures * 06/17/17 - PEG tube * 06/15/17 tracheostomy * 06/04/17 - intubated . Patient/Family Conference Present at Family Conference: Met with mother, Tess Reilly. Also present Barbara Peguero. SCRAPER OPERATOR. . Family Conference Time (mins): 60 Family Conference Location: Consult Room Issues Discussed: * Palliative care role, purpose, approach * Additional medical, psychosocial, and spiritual history * Patients general health, functional status, and cognitive changes in the months leading up to the current hospitalization * Patient/family understanding of the current medical problems * Patient/family understanding of prognosis * Patients goals of care as best understood from advance directives and/or conversations and/or values * Current medical treatment options and benefits/burdens of those options * Likely scenarios comparing ongoing aggressive care with a transition to comfort measures only * Questions answered to the best of my ability * Palliative care contact information provided In summary, mother wishes to serve as healthcare surrogate. She has elected alternate code status, intubation only. She would like to speak with her son, Pedro Luis (patient's brother) before making additional decisions. She states that the patient based on his previously stated and written advance directives would not want to live on the ventilator. She thinks it may be time to "let him go." She is not yet ready to make this decision. She is appropriately tearful. Offered support. . Assessment and Plan Disease Oriented Problem List: (1) Colitis (2) Sepsis (3) HCAP (healthcare-associated pneumonia) (4) acute protein calorie malnutrition (5) Ileus (6) Acute hypercapnic respiratory failure (7) Altered mental status (8) Pneumonia (9) Acute renal failure (10) Acute encephalopathy Symptom Scale: (1) Pain 0-10 Scale: Unable to quantify (2) Dyspnea 0-10 Scale: Unable to quantify Pertinent Non-Medical Issues Psychosocial: . Supported by his mother, Tess who lives in [place]. And his brother Pedro Luis that lives in [place]. Spiritual: Rastafarian isabel. Legal: Per written Advanced Directive: Primary healthcare surrogate: Inés Javed, aunt. I spoke with her on 07/08/17 she DOES NOT wish to serve as HCS. A lternate HCS: Tess or Mckay Relily, parents. Father . Mother is willing to serve as healthcare surrogate. Ethical issues impacting care: no known concerns at this time. . Important Contacts * Tess Reilly, mother/HCS: [phone] * Pedro Luis and Johnnie Reilly, brother and [id number]: [phone] or . Prognosis Mr. Reilly is a 61-year-old male with multiple medical comorbidities, prolonged hospitalization, status post tracheostomy and PEG tube inability to be weaned from mechanical ventilation. Overall prognosis appears poor for meaningful recovery. . Code Status: Alternative Code (intubation only) Plan * Decision Maker: Per written Advanced Directive: Primary healthcare surrogate: Inés Javed, aunt. I spoke with her on 07/08/17 she DOES NOT wish to serve as HCS. Alternate HCS: Tess or Mckay Reilly, parents. Father . Mother is willing to serve as healthcare surrogate. * ALTERNATE CODE : intubation only. * Palliative care met with mother, Tess elects alternate code status intubation only. She indicates that based on the patient's written advance directive that he would not want life-sustaining treatment should he need a breathing machine and be in bed rest of his life. Patient's mother a certain that he would not want the dying process artificially prolonged. She would like to take some time to speak with her son, Pedro Luis prior to making any additional decisions. Advised that she can give my cell phone number to her son Pedro Luis should he have any additional questions or concerns that she is unable to answer. * SYMPTOMS: Pain: potential sources of pain include prolonged hospitalization, bedbound status, tubes including tracheostomy/PEG tube. Currently sedated on Versed and Precedex. Does not appear painful during my visit. Dyspnea: remains sedated with Precedex and Versed for vent synchrony. No new medication recommendations. * Palliative care number provided. * Palliative care will continue to follow throughout hospital course to assist with symptom management and clarification of goals as needed. . Thank you for the opportunity to participate in the care of Mr. Reilly. Attestation To help prompt me to consider important information that might be impacting today's encounter and assessment, information from prior notes written by myself or my colleagues may have been "brought forward" into today's note. My signature on this note, however, is an attestation that I personally performed the exam, history, and/or decision-making noted today, and, unless otherwise indicated, the interactions with patient, family, and staff as well as the review of records all occurred today. I also attest that the listed assessment and stated plan reflect my best clinical judgment today based on the combination of historical information, prior notes, and today's exam/ interactions. When time spent is documented, it refers only to time spent today by the signer, or if indicated, combined time spent today by collaborating physician/nurse practitioner. Ariadne Mccray Jul 08, 2017 18:31
[2017-07-08] MEDS ORDERED: FUROSEMIDE 40 MG/4 ML VIAL IV PUSH ONE (19:45)
--- NOTE | 2017-07-08 19:58 | HHI.PR ---
Subjective Remarks 61 YOWM with VDRF,Trach,COPD AC 14, Fi02 60% Sedated with Diprivan and Precedex No Fever Gets agitated and starts belly breathing Increased swelling o ext Objective Vital Signs Vital Signs Date Time Temp Pulse Resp B/P (MAP) Pulse Ox O2 Delivery O2 Flow Rate FiO2 07/08/17 19:51 96 40 07/08/17 18:00 64 07/08/17 17:26 100 45 07/08/17 16:30 63 07/08/17 16:00 98.5 65 33 138/74 (95) 99 07/08/17 16:00 40 07/08/17 16:00 65 07/08/17 14:00 72 33 113/61 (78) 94 07/08/17 14:00 72 07/08/17 13:30 74 35 127/72 (90) 96 07/08/17 13:30 74 07/08/17 13:00 73 07/08/17 13:00 73 42 108/64 (79) 96 07/08/17 12:47 97 40 07/08/17 12:31 68 07/08/17 12:31 68 46 138/76 (96) 100 07/08/17 12:00 40 07/08/17 12:00 98.9 64 35 115/65 (82) 97 07/08/17 12:00 64 07/08/17 10:30 71 61 128/80 (96) 97 07/08/17 10:30 71 07/08/17 10:00 69 47 138/77 (97) 99 07/08/17 10:00 69 07/08/17 09:30 68 31 129/74 (92) 96 07/08/17 09:30 68 07/08/17 09:00 71 68 124/71 (88) 98 07/08/17 09:00 71 07/08/17 08:31 100 40 07/08/17 08:30 63 07/08/17 08:30 63 44 120/76 (91) 98 07/08/17 08:00 99.6 61 43 94 07/08/17 08:00 40 07/08/17 08:00 61 07/08/17 06:00 56 07/08/17 04:20 100 40 07/08/17 04:00 40 07/08/17 04:00 62 07/08/17 04:00 97.9 62 32 121/58 (79) 98 07/08/17 02:00 61 07/08/17 01:02 96 40 07/08/17 00:00 98.7 63 29 111/59 (76) 94 07/08/17 00:00 40 07/08/17 00:00 63 07/07/17 22:00 67 07/07/17 20:09 97 40 07/07/17 20:00 99.1 64 29 92/52 (65) 97 07/07/17 20:00 40 07/07/17 20:00 64 I/O 07/07/17 07/07/17 07/07/17 07/08/17 07/08/17 07/08/17 07:00 15:00 23:00 07:00 15:00 23:00 Intake Total 2184.3 ml 343 ml 1839.1 ml 2378 ml 2350 ml 60 ml Output Total 1550 ml 1800 ml 2700 ml 1550 ml Balance 634.3 ml 343 ml 39.1 ml -322 ml 2350 ml -1490 ml IV Total 1926.3 ml 343 ml 1645.1 ml 2010 ml 2350 ml Tube Feeding 108 ml 134 ml 118 ml Tube Irrigant 150 ml 250 ml Other 60 ml 60 ml Output Urine Total 1550 ml 1800 ml 2700 ml 1550 ml # Bowel Movements 1 2 2 2 Result Diagram: 07/08/17 0520 07/08/17 0520 Objective Remarks GENERAL: MBMN WM, on Vent, sedated SKIN: Warm and dry. HEAD: Normocephalic. EYES: No scleral icterus. No injection or drainage. NECK: Supple, trachea midline. No JVD or lymphadenopathy. CARDIOVASCULAR: Regular rate and rhythm without murmurs, gallops, or rubs. RESPIRATORY: Breath sounds equal bilaterally. No accessory muscle use. GASTROINTESTINAL: Abdomen soft, non-tender, nondistended. MUSCULOSKELETAL: No cyanosis, or edema. BACK: Nontender without obvious deformity. No CVA tenderness. A/P Assessment and Plan VDRF S/P Trach COPD COPD Schzoaffective disorder Bipolar disorder PLAN: Vent support PRVC AC mode Cont Abx Sedation with Precedex and Versed Trickle tube feed Lasix 40 mg IVP X1 Syed Cuellar MD Jul 08, 2017 19:58
[2017-07-08] MEDS: FAT EMULSION 20% INJ 250 ML (Daily over 8 hours) IV-CENTRAL SCH (20:07)
[2017-07-09] VITALS (33 sets, daily range): BP systolic 99–164; BP diastolic 57–80; PULSE 60–94; RESP 21–39; TEMP 98.4–98.7; O2SAT 93–100
[2017-07-09] MEDS: PIPERACIL-TAZO 4.5 GM PREMIX 100 ML IV SCH ×4 (02:39→20:22)
[2017-07-09] MEDS: INSULIN NovoLIN REGULAR SUPPLEMENTAL SCALE SQ SCH ×5 (03:55→20:22)
[2017-07-09 04:28] LABS: HEMOGLOBIN 8.6 GM/DL (13.0-17.0); MEAN CELL VOLUME 103.9 FL (80.0-100.0); MEAN CORPUSCULAR HEMOGLOBIN 37.2 PG (27.0-34.0); MEAN CORPUSCULAR HGB CONC 35.8 % (32.0-36.0); MEAN PLATELET VOLUME 7.2 FL (7.0-11.0); PLATELET COUNT 334 TH/MM3 (150-450); RED BLOOD COUNT 2.31 MIL/MM3 (4.50-5.90); RED CELL DISTRIBUTION WIDTH 16.6 % (11.6-17.2); WHITE BLOOD COUNT 10.1 TH/MM3 (4.0-11.0)
[2017-07-09] MEDS: DEXMEDETOMIDINE INJ 1,000 MCG in SODIUM CHLOR 0.9% 250 ML INJ 240 ML IV PRN ×3 (04:52→18:37)
[2017-07-09] MEDS: MIDAZOLAM 100 MG/NS 100 ML DRIP Premix IV PRN ×3 (04:53→20:02)
[2017-07-09] MEDS: METOCLOPRAMIDE HCL 10 MG/2 ML VIAL IV PUSH SCH ×3 (06:00→20:22)
[2017-07-09] MEDS: RESP: ALBUTEROL 2.5 MG/IPRATROPIUM 0.5 MG NEB (SCH) INH ×3 (08:00→21:38)
--- NOTE | 2017-07-09 08:12 | HHI.CCPN ---
Subjective Remarks/Hospital Course 06/04: Mr. Reilly is a 61-year-old male with a history of COPD, hypertension, hyperlipidemia, CVA, schizoaffective disorder, bipolar disorder, GERD, renal failure, and arthritis who presented to the emergency room on 06/03/2017 from a detention facility for evaluation of altered mental status. Upon review of the medical records from the detention facility, it is noted he had a right lower lobe pneumonia diagnosed mid May. Head CT showed no acute infarct, acute hemorrhage, mass effect, or extra-axial fluid collection but scattered old lacunar infarcts within the bilateral basal ganglia. Mild periventricular and subcortical white matter small vessel ischemic changes bilaterally. Chest x-ray shows scattered bibasilar patchiness consistent with possible pneumonia. Per documentation : While in the ER, patient was in moderate respiratory distress with tachypnea and utilization of accessory abdominal muscles to breathe. His lung sounds are bilaterally congested and he is confused and a poor historian. His speech is slightly slurred but this is not a new finding. He was noted to be on 5 L nasal cannula with oxygen saturation of 94% in the emergency room. Patient was admitted to the ICU by the hospitalist service. He was initiated on heparin drip for suspicion of PE. He was also noted to have an elevated CPK and creatinine. His blood pressures were running high overnight. This afternoon patient developed worsening agitation and disorientation and confusion. His heparin was stopped earlier by Dr. Garcia due to low suspicion for PE. Patient developed worsening respiration status with respirations in the 30s and O2 sats in the mid 80s. Critical care medicine was consulted. Patient was emergently intubated by Dr. Elvira Gutierrez and I subsequently took over patient care. When I evaluated the patient he had been sedated for the intubation and is being placed on mechanical ventilation. History was obtained by discussion with Dr. Garcia, Dr. Gutierrez and ICU nursing staff as well as documentation in the chart. 06/05: Remains sedated, orally intubated on mechanical ventilation. 06/06: Sedated, orally intubated on mechanical ventilation. Failed C Pap trial today. Got extremely anxious on lightening sedation. 06/07 No events overnight. Sedated and intubated. Afebrile. 06/08 No events overnight. Sedated with Diprivan, Fentanyl and intubated. 06/09 Patient remains sedated and intubated. Afebrile.Did not tolerate CPAP trials yesterday. 06/10 Patient is sedated with Fentanyl and Diprivan. Afebrile. Did not tolerate CPAP yesterday as he became restless, agitated and tachycardic. 06/11 Patient remains sedated and intubated. Spiked fever with Tmax 101.1 06/12 No events overnight. Sedated and intubated. Afebrile. 06/13 Patient remains intubated and sedated with Diprivan, fentanyl in addition he is on Precedex drip. T:100.0 06/14 Patient remains sedated and intubated. Afebrile. Did not tolerate CPAP trials yesterday as he became tahypenic, tachycardic and restless. 06/15: agitation persists. respiratory failure persists. severely volume overloaded. has been intubated for almost 2 weeks. may require trach. CT abd/ pelvis without overt acute disease. no other source for fungemia. 06/16: s/p trach yesterday. no significant changes. 06/17: plan for PEG today. agitation persists with significant delirium. no other significant changes. 06/18: s/p PEG placement. weaning off sedation. still failing cpap trials. 06/19: cannot wean off precedex: agitated delirium persists. also still failing cpap trials. 06/20 No events overnight. On Precedex drip for agitation. T: 100.1 last night. 06/21 No events overnight. Remains on Precedex drip. Afebrile. 06/22 Patient is sedated with Fentanyl and Precedex. Afebrile. For MRI brain today. 06/23 Patient became hypotensive overnight and had episode of desaturation with says in mid 80's. Given 500ml 5% Albumin now off sedation ( Fentanyl and Precedex held). BP is better. In addition he was given Dulcolax suppos. and Mg citrate now having BM's. KUB this morning showed diffuse mild gaseous distention of bowel. FIO2 requirements is better now on 50% FIO2 with PEEP: 10 from FIO2 75 % overnight. CXR unchanged ( Consolidation LLL and Atelectasis right lung base) . T:99.9 06/24: Remains on mechanical ventilation via tracheostomy. CT abdomen pelvis done on 06/23 revealed pneumatosis involving cecum and transverse colon suggesting ischemic colitis. Gen. surgery consulted and patient evaluated by Dr. Monroe today who recommends medical management at this time with IV fluids and continuation of antibiotics. Patient not tolerating tube feeds and has abdominal distention. Maintaining blood pressure currently. 06/25: Remains on mechanical ventilation via tracheostomy. Does not appear to be in any acute distress. Still nothing by mouth. Being followed by general surgery for pneumatosis involving cecum and transverse colon. 06/26: Remains on mechanical ventilation via tracheostomy. Awake. Denies abdominal pain this morning. Has bowel sounds. Abdominal less distended. 06/27: no improvements. afebrile. restarting tube feeds slowly. 06/28: tube feeds held overnight for high residuals. reglan iv started. tolerated t-piece yesterday for short period. 06/29: In bed, awake and alert. On mechanical ventilation via tracheostomy. Not tolerating tube feeds with high residuals from PEG tube on suction. 06/30: Awake and alert. Denies any abdominal pain. Bilious emesis overnight with about 2200 cc suctioned out via PEG tube in last 24 hours. Being scheduled for colonoscopy by GI 07/01: Became tachypneic this morning with respiratory rate in the 40s. O2 sats remained in the 90s. Had to resume sedation with Versed and patient was placed back on PRBC mode mechanical ventilation. Chest x-ray done this morning shows bibasilar infiltrates, no pneumothorax or atelectasis noted. Became hypotensive requiring Levophed 2 mics per minute. Still not tolerating tube feeds and PEG tube remains to suction. Started on PPN yesterday. PICC line placed yesterday. 07/02: No intervention per general surgery Dr. Mnoroe. No intervention per GI which has signed off. Instructed to possibly begin trickle feeds 07/03: Approximally 900 cc of bilious fluid from gastric contents in the last 12 hours overnight. During the day last 12 hours approximately 300 cc of bilious gastric output. Patient was started on erythromycin 200 mg every 6 hours. Plan for repeat KUB in am . Patient continues on TPN 07/04: Last 24 hours, gastric output significantly decreased. GI plans for clamping of the G-tube today with initiation of trickle feeds in a.m..Plan for possibly performing endoscopy early next week under general anesthesia/ in the OR. Patient continues to have stool output. KUB slightly shows slight improvement in small bowel dilatation. 07/05:Trickle feeds initiated early this am., Per GI. Hemoglobin stable. Patient remains sedated. 07/06: Continues to tolerate tube feeds at 10 cc/an hour. 90 cc residual and approximately 24 hours. UA resulted noted trace occult blood. Will continue to monitor, serial hemoglobin and hematocrit. Patient continues on TPN. Patient continues to fail CPAP trials. 07/07: Afebrile. Tolerating tube feeds at 10 cc/an hour. Tube feed residuals remain at 100 cc per 12 hour shift. The patient continues to fail CPAP trials. Close monitoring of hemoglobin, noted slight decrease. 07/08: Patient noted to have continued elevation in glucose levels greater than 200, Levemir increased. Patient continues to tolerate tube feeds at 10 cc/an hour, with residuals over the last 12 hours approximately 60 cc. The patient continues on prokinetic GI motility medications Reglan 10 mg every 8 hours and erythromycin 200 mg every 6 hours. Patient was noted to have 4 bowel movements over the last 12 hours. 07/09: No acute events overnight. Patient continues to be hyperglycemic. Pharmacy consulted regarding TPN mixture to add insulin 20 units . Patient received 40 mg of Lasix and diuresed approximately 4 L last evening. BMP pending. The patient continues to have minimal residuals every 12 hours via G- tube approximately 60-80 cc. The patient continues on Precedex and Versed infusions for ventilator synchrony. Hemoglobin stable 8.6. KUB showed improved small bowel dilation. Objective Vital Signs Date Time Temp Pulse Resp B/P (MAP) Pulse Ox O2 Delivery O2 Flow Rate FiO2 07/09/17 06:00 61 07/09/17 04:40 98 40 07/09/17 04:00 98.7 35 118/62 (80) Intake and Output 07/09/17 07/09/17 07/10/17 08:00 16:00 00:00 Intake Total 1062 ml Output Total 4300 ml Balance -3238 ml Result Diagram: 07/09/17 0400 07/08/17 0520 Imaging Last Impressions Chest X-Ray 07/04/17 0600 Signed Impressions: Service Date/Time: July 03:32 - CONCLUSION: Unchanged bibasilar infiltrates. Yuri Isidro Jr., MD Abdomen X-Ray 07/04/17 0600 Signed Impressions: Service Date/Time: July 03:35 - CONCLUSION: Dilated small bowel has improved slightly from the prior study. Yuri Isidro Jr., MD CT Angiography 07/01/17 0000 Signed Impressions: Service Date/Time: Saturday, July 01, 2017 23:54 - CONCLUSION: 1. Study limited by motion. 2. No pulmonary emboli. 3. Worsening consolidation within the right upper lobe. Infectious etiology suspected. 4. Small bilateral pleural effusions and associated passive atelectasis. This is new. 5. Emphysematous changes. 6. 6 mm left upper lobe pulmonary nodule. Yuri Isidro Jr., MD Abdomen/Pelvis CT 07/01/17 0000 Signed Impressions: Service Date/Time: Saturday, July 01, 2017 23:54 - CONCLUSION: 1. Breathing degraded study. 2. Dilatation of proximal jejunal loops which slowly taper. No obstructing mass or lesion. This could relate to a focal ileus. I cannot completely exclude a bowel obstruction. Small amount of free fluid. 3. Mild inflammatory change involving the mesentery adjacent to the ascending colon has improved somewhat. No pneumatosis involving the bowel observed. Yuri Isidro Jr., MD Brain MRI 06/22/17 0000 Signed Impressions: Service Date/Time: Thursday, June 22, 2017 12:10 - CONCLUSION: All ischemic changes, negative for acute ischemic event. Negative for parenchymal hemorrhage. Usman Pimentel MD FACR Head CT 06/04/17 0000 Signed Impressions: Service Date/Time: Sunday, June 04, 2017 18:46 - CONCLUSION: 1. No significant change compared to 06/03/17. 2. No acute infarct, acute hemorrhage , mass effect or extra-axial fluid collection. 3. Scattered old lacunar infarcts within the bilateral basal ganglia. 4. Mild periventricular and subcortical white matter small vessel ischemic changes bilaterally. 5. Old right posterior parietal infarct. 6. Chronic opacification of right mastoid air cells. Mckay Stone MD Chest CT 06/04/17 0000 Signed Impressions: Service Date/Time: Sunday, June 04, 2017 18:49 - CONCLUSION: 1. Right mid lung field and posterior bibasilar patchiness consistent with probable areas of pneumonia and/or atelectasis. Clinical correlation is recommended. 2. Tiny bilateral pleural effusions. 3. Cardiomegaly and coronary artery calcifications. 4. Minimal scattered emphysematous changes bilaterally. Mckay Stone MD Last 48 hours Impressions Abdomen X-Ray 06/24/17 0600 Signed Impressions: Service Date/Time: Saturday, June 24, 2017 03:14 - CONCLUSION: Dilated transverse colon and no definite pneumatosis intestinalis or technique, however the patient's prior CT examination was suggestive of pneumatosis. Domingo Pollack MD Chest X-Ray 06/24/17 0000 Signed Impressions: Service Date/Time: Saturday, June 24, 2017 03:08 - CONCLUSION: Bibasilar atelectasis and/or infiltrate is seen. Domingo Pollack MD Chest X-Ray 06/23/17 0000 Signed Impressions: Service Date/Time: Friday, June 23, 2017 03:45 - CONCLUSION: No significant interval change Arvind Hernandez MD CT Angiography 06/23/17 0000 Signed Impressions: Service Date/Time: Friday, June 23, 2017 20:34 - CONCLUSION: 1. No evidence of pulmonary embolus. 2. Increased patchy bilateral pulmonary consolidation with mild thin-walled cavitation of focal consolidation in the right upper lobe. This finding could be related consolidation of an area of long with emphysema involvement. 3. Mild to moderate upper lobe pulmonary parenchymal emphysema is seen. Rosas Rowell MD Abdomen/Pelvis CT 06/23/17 0000 Signed Impressions: Service Date/Time: Friday, June 23, 2017 20:34 - CONCLUSION: 1. Bowel wall pneumatosis involving the cecum and proximal transverse colon. Findings are suspicious for ischemic colitis. Surrounding inflammatory change in the intra-abdominal fat. No portal venous gas or free air identified. 2. Prominent bilateral lower lobe pulmonary consolidation. Rosas Rowell MD Abdomen X-Ray 06/23/17 0000 Signed Impressions: Service Date/Time: Friday, June 23, 2017 03:51 - CONCLUSION: Diffuse mild gaseous distention of bowel Arvind Hernandez MD Last Impressions Chest X-Ray 06/23/17 0000 Signed Impressions: Service Date/Time: Friday, June 23, 2017 03:45 - CONCLUSION: No significant interval change Arvind Hernandez MD Abdomen X-Ray 06/23/17 0000 Signed Impressions: Service Date/Time: Friday, June 23, 2017 03:51 - CONCLUSION: Diffuse mild gaseous distention of bowel Arvind Hernandez MD Brain MRI 06/22/17 0000 Signed Impressions: Service Date/Time: Thursday, June 22, 2017 12:10 - CONCLUSION: All ischemic changes, negative for acute ischemic event. Negative for parenchymal hemorrhage. Usman Pimentel MD FACR Abdomen/Pelvis CT 06/14/17 0000 Signed Impressions: Service Date/Time: Wednesday, June 14, 2017 22:32 - CONCLUSION: 1. Increasing basilar lung consolidation since chest CT from June 04. 2. Mild ileus. No bowel obstruction, free air or free fluid. 3. Left hip replacement. Advanced osteoarthritis right hip. NG in stomach. Rectal tube present. Humphrey Weston MD Head CT 06/04/17 0000 Signed Impressions: Service Date/Time: Sunday, June 04, 2017 18:46 - CONCLUSION: 1. No significant change compared to 06/03/17. 2. No acute infarct, acute hemorrhage , mass effect or extra-axial fluid collection. 3. Scattered old lacunar infarcts within the bilateral basal ganglia. 4. Mild periventricular and subcortical white matter small vessel ischemic changes bilaterally. 5. Old right posterior parietal infarct. 6. Chronic opacification of right mastoid air cells. Mckay Stone MD Chest CT 06/04/17 0000 Signed Impressions: Service Date/Time: Sunday, June 04, 2017 18:49 - CONCLUSION: 1. Right mid lung field and posterior bibasilar patchiness consistent with probable areas of pneumonia and/or atelectasis. Clinical correlation is recommended. 2. Tiny bilateral pleural effusions. 3. Cardiomegaly and coronary artery calcifications. 4. Minimal scattered emphysematous changes bilaterally. Mckay Stone MD Objective Remarks GENERAL: Patient is 61 yo gentleman on ventilator via trach sedated on Versed and Precedex infusion SKIN: Warm and dry. HEAD: Normocephalic. EYES: No scleral icterus. No injection or drainage. NECK: trachea midline. No JVD. + Trach CARDIOVASCULAR: Regular rate and rhythm. RESPIRATORY: equal chest rise. 40% fio2. Clear to auscultation GASTROINTESTINAL: Abdomen soft, protuberant non-tender, minimally distended, bowel sounds present. Tube feeds infusing, minimal residuals. MUSCULOSKELETAL: No cyanosis, 3+ edema. Neuro: Off sedation, follows simple commands intermittently. A/P Assessment and Plan Assessment: 61yM with history of schizoaffective d/o and bipolar d/o who presented with acute hypoxic respiratory failure and now fungemia without overt source. Not improving on pathway. No meaningful improvements over last 2 weeks. s/p trach 06/15 and PEG 06/17. remains off pathway. needs long-term acute care level of rehabilitation. tube feed intolerance persists. has been without nutrition since 06/24. Started on PPN 06/30, ->TPN 07/01 Plan: Neuro: Acute Metabolic Encephalopathy Agitated Delirium - improving. Schizoaffective disorder/bipolar disorder History of alcohol abuse History of CVA Monitor neuro status. Resumed sedation with Versed gtt on 07/01. Chin continues on Versed and Precedex infusion for ventilator synchrony and analgesia MRI brain 06/22: No acute ischemic events, no hemorrhage Lactulose discontinued EEG showed mod. encephalopathy Neuro is following. Dr. Rosibel Cheatham 10mg IM q12h prn for agitation CV: Uncontrolled hypertension - resolved. hyperlipidemia Monitor HR and BP keep MAP>65mmHg Hold antihypertensive meds ( Norvasc 5mg daily, clonidine 0.3mg po q8h, Lopressor 50mg Q12) 2-D echo with normal LV/RV function Pulmo: Acute respiratory failure requiring mechanical ventilation - persistent. COPD exacerbation Resolving community acquired pneumonia Intubated and placed on mechanical ventilation on 06/04. Continue with vent support keep sat >92%. Vent bundle, bronchodilators, on prednisone taper On PRVC CTA chest negative for PE. trach 06/[address] Sapp/Alexander continue daily SBTs. t-piece trials if tolerated. Continue to attempt CPAP trials Pulmonary following-Dr. Cuellar GI/liver: GERD Acute protein calorie malnutrition- severe Hyperglycemia 06/23 KUB abdomen: Mild gaseous distention of bowel Ct abd/pelvis 06/23: Pneumatosis involving cecum and transverse colon concerning for ischemia. C. Diff negative hold bowel regimen. Surgery following patient for ischemic colitis- no surgical intervention recommended at this time and they have signed off. I discussed case with Dr. Anival Madden covering for Dr. Monroe on 06/30 as patient continues to have ileus with bilious output from PEG tube and not tolerating tube feeds. hold tube feeds, keep reglan iv. restart tube feeds 06/29 after 24h of reglan. having regular bowel movements. passing flatus. Consulted GI and view of ileus for evaluation of ileus and ischemic colitis. They're planning colonoscopy for further evaluation. Started PPN on 06/30 as unable to tolerate PEG tube feeds. PICC line placed and was switched to TPN on 07/01 KUB done on 06/29 with dilated small and large bowel loops. 07/02: Discussed with Dr. Caraballo requested to restart tube feeds. Neurosurgery has signed off 07/04 Follow-up KUB -slight improvement in dilated small bowel. No pneumatosis. : Continued improvement of small bowel dilation 07/04 Erythromycin 200 mg every 6 hours IV started , patient continues on metoclopramide, PEG tube clamped for 24 hours 07/05 Trickle feeds initiated , minimal residuals. Tentative plan for possible EGD next week per GI 07/08 Levimir increased to 12 units twice a day, 20 units Insulin added to TPN mixture Renal/: ROSENDO/ CKD - resolved. Rhabdomyolysis - resolved. Acute intravascular volume overload- resolved. Metabolic alkalosis- resolving. Monitor renal function, electrolytes replacement per protocol. saline lock ivf. 07/08- Lasix 40 mg IV 1 dose-1 liter diuresed l ID: Fungemia- resolved. Community Acquired Pneumonia- resolved. Ischemic colitis Sepsis [facility] Associated pneumonia with pseudomonas/e.coli completed full 14 day course of micagunfin for fungemia. Continue Zosyn. Micafungin added per ID CT abdomen pelvis on 06/23 shows pneumatosis involving cecum and transverse colon consistent with ischemic colitis. Patient evaluated by general surgery Dr. Monroe who at this time recommends continuing IV fluids and antibiotics and he will be available for surgery if patient develops evidence of peritonitis or worsens clinically. ID is following Sputum cx: E.coli on 06/04, sputum 06/10: normal resp tamara BC 06/14, 06/19 : NGTD, Sputum cx 06/21: E.coli, Pseudomonas Endocrine: Hyperglycemia of critical illness SSI medium scale, q4h Heme: Anemia secondary to chronic disease Monitor CBC. Prophylaxis: Pepcid/SCDs. SQ Lovenox Lines: Right sided PICC line placed 06/30 Level 3 follow up D/W [employer] at bedside (Diana). 07/09 Palliative care team Ms. Mahendra following, the patient was made alternate CODE STATUS intubation only. Physician Elvira Null MD Jul 09, 2017 08:12
[2017-07-09] MEDS: DEXT 5%-NACL 0.9% 1000 ML INJ 1,000 ML IV SCH (08:16)
[2017-07-09] MEDS: CHLORHEXIDINE 0.12% (ORAL KIT) 15 ML CUP MT SCH ×2 (08:16→20:00)
[2017-07-09] MEDS ORDERED: SODIUM CHLORIDE 23.4% INJ 11 MEQ, SODIUM ACETATE INJ 59 MEQ, POTASSIUM CHLORIDE INJ 40 ... IV-CENTRAL SCH ×20 (08:30→20:00)
[2017-07-09] MEDS: SENNOSIDES SYRUP 8.8 MG/5 ML CUP PO SCH (08:35)
[2017-07-09] MEDS: guanFACINE HCL 1 MG TAB PO SCH ×2 (08:35→21:00)
[2017-07-09] MEDS: SODIUM CHLORIDE 0.9% FLUSH 10 ML FLUSH IV FLUSH SCH ×3 (08:36→20:22)
[2017-07-09] MEDS: NUTRISOURCE FIBER POWDER 1 PACK G-TUBE SCH ×2 (08:36→20:23)
[2017-07-09] MEDS: INSULIN DETEMIR 100 UNITS/ML VIAL SQ SCH ×2 (08:37→20:22)
[2017-07-09 11:12] LABS: BICARBONATE 29.8 MEQ/L (21.0-32.0); CALCIUM 8.4 MG/DL (8.5-10.1); CREATININE 0.61 MG/DL (0.60-1.30)
[2017-07-09] MEDS: FAMOTIDINE 20 MG/2 ML VIAL IV PUSH SCH (11:24)
--- NOTE | 2017-07-09 17:13 | HHI.HCPN ---
Reason for visit a. To assist with evaluation and management of symptoms including:dyspnea, pain. b. To assist medical decision maker(s) with: better understanding of current medical conditions; weighing benefits/burdens of medical treatment options; making medical treatment decisions. . Subjective/Interval History Patient seen and examined in ICU. Mother at bedside. Discussed with Dr. Gutierrez and nurse, Diana. Patient remains sedated on Versed and Precedex for vent synchrony. On TPN and trickle tube feedings. Bowel sounds hypoactive. Abdomen distended. Hemoglobin 8.6. Albumin 1.5. No significant change. . Family/friend interactions 11am: Call from brotherPedro Luis via telephone to obtain medical update. Medical update provided, reviewed conversations with his mother and overall poor prognosis of patient. He indicates based on patient previously stated wishes and written advanced directives that the patient would not want to be artificially prolonged by tubes and machines. This is consistent with what patient's mother told me 07/08/16 and with written Living Will. 4:30pm: Met with mother at bedside. Also present CARI Wang. She has decided patient would not want continued life support. She will coordinate timing of transition to comfort/ withdrawal of life support with hospice. Hospice consulted. Mother has cardiac rehab on and upcoming MD appointments she will need to coordinate around once she has time to look at her calendar at home. . Advance Directives Living Will: Copy in medical record Health Care Surrogate: Copy in medical record Advance Directive Specifics Date completed: 09/27/2015 . Health Care Surrogate(s): Designation of healthcare surrogate: Primary healthcare surrogate: Inés Boltonateer, aunt. I spoke with her on 07/08/17 she DOES NOT wish to serve as HCS. Alternate HCS: Tess or Mckay Reilly, parents. Father . Mother is willing to serve as healthcare surrogate. . Significant change in goals: Alternate Code: Intubation Only. Hospice consulted in anticipation of withdrawal of life support, timing to be determined, may not be until Saturday. . Objective Vital Signs Date Time Temp Pulse Resp B/P (MAP) Pulse Ox O2 Delivery O2 Flow Rate FiO2 07/09/17 15:00 63 32 149/71 (97) 98 07/09/17 14:30 65 32 139/67 (91) 97 07/09/17 14:00 65 28 151/72 (98) 98 07/09/17 13:30 66 32 135/66 (89) 100 07/09/17 13:00 61 35 133/60 (84) 100 07/09/17 12:31 60 28 140/65 (90) 96 07/09/17 12:01 63 29 164/74 (104) 99 07/09/17 12:00 64 29 97 07/09/17 12:00 98.6 07/09/17 12:00 40 07/09/17 11:44 97 40 07/09/17 11:31 63 29 138/74 (95) 97 07/09/17 11:02 69 39 121/65 (83) 95 07/09/17 10:30 65 32 141/74 (96) 96 07/09/17 10:00 66 31 147/74 (98) 97 07/09/17 09:30 68 25 113/63 (80) 95 07/09/17 09:00 68 21 122/60 (80) 94 07/09/17 08:40 99 40 07/09/17 08:31 61 23 119/57 (77) 95 07/09/17 08:00 62 33 99/58 (72) 93 07/09/17 08:00 40 07/09/17 06:00 61 07/09/17 04:40 98 40 07/09/17 04:00 40 07/09/17 04:00 98.7 65 35 118/62 (80) 93 07/09/17 04:00 65 07/09/17 02:00 67 07/09/17 01:22 98 40 07/09/17 00:00 66 07/09/17 00:00 98.4 66 30 106/57 (73) 96 07/09/17 00:00 40 07/08/17 22:00 71 07/08/17 20:00 98.9 74 34 89/52 (64) 96 07/08/17 20:00 74 07/08/17 20:00 40 07/08/17 19:51 96 40 07/08/17 18:00 64 07/08/17 17:26 100 45 Intake & Output 07/09/17 07/09/17 07:00 19:00 Intake Total 1162 ml Output Total 4300 ml Balance -3138 ml IV Total 800 ml Tube Feeding 262 ml Other 100 ml Output Urine Total 4300 ml # Bowel Movements 1 Physical Exam CONSTITUTIONAL/GENERAL: This is an adequately nourished patient, sedated on mechanical ventilation TUBES/LINES/DRAINS: tracheostomy to vent, PEG tube, PIV left forearm, right upper extremity pick line, soft wrist restraints, condom catheter, SCD's, PODUS boots. SKIN: Pale. Ecchymoses on upper extremities. No wounds seen anteriorly. Skin temperature appropriate. Not diaphoretic. EYES: Pupils equal and round and reactive.No scleral icterus. No injection or drainage. Fundi not examined. ENT: unable to assess hearing. Nose without bleeding or purulent drainage. poor dentition. NECK: tracheostomy to mechanical ventilation. CARDIOVASCULAR: Regular rate and rhythm without murmurs. RESPIRATORY/CHEST: mildly labored, shallow respirations on mechanical vent, tachypneic. Diminished breath sounds bilaterally. GASTROINTESTINAL: Abdomen soft, more distended. Bowel sounds hypoactive. Trickle TF at 10cc/hr. GENITOURINARY: Without palpable bladder distension. Catheter in place. MUSCULOSKELETAL: Bilateral UE edema. NEUROLOGICAL: Sedated. PSYCHIATRIC: Sedated. . Diagnostic Tests Laboratory Laboratory Tests Test 07/07/17 04:52 07/07/17 05:44 07/08/17 05:20 07/09/17 04:00 White Blood Count 9.0 TH/MM3 (4.0-11.0) 9.5 TH/MM3 (4.0-11.0) 10.1 TH/MM3 (4.0-11.0) Red Blood Count 2.58 MIL/MM3 (4.50-5.90) 2.55 MIL/MM3 (4.50-5.90) 2.31 MIL/MM3 (4.50-5.90) Hemoglobin 7.7 GM/DL (13.0-17.0) 7.5 GM/DL (13.0-17.0) 8.6 GM/DL (13.0-17.0) Hematocrit 22.8 % (39.0-51.0) 22.4 % (39.0-51.0) 24.0 % (39.0-51.0) Mean Corpuscular Volume 88.2 FL (80.0-100.0) 87.9 FL (80.0-100.0) 103.9 FL (80.0-100.0) Mean Corpuscular Hemoglobin 29.7 PG (27.0-34.0) 29.3 PG (27.0-34.0) 37.2 PG (27.0-34.0) Mean Corpuscular Hemoglobin Concent 33.7 % (32.0-36.0) 33.3 % (32.0-36.0) 35.8 % (32.0-36.0) Red Cell Distribution Width 15.2 % (11.6-17.2) 15.0 % (11.6-17.2) 16.6 % (11.6-17.2) Platelet Count 346 TH/MM3 (150-450) 332 TH/MM3 (150-450) 334 TH/MM3 (150-450) Mean Platelet Volume 7.3 FL (7.0-11.0) 7.1 FL (7.0-11.0) 7.2 FL (7.0-11.0) Neutrophils (%) (Auto) 71.5 % (16.0-70.0) Lymphocytes (%) (Auto) 16.2 % (9.0-44.0) Monocytes (%) (Auto) 7.9 % (0.0-8.0) Eosinophils (%) (Auto) 3.2 % (0.0-4.0) Basophils (%) (Auto) 1.2 % (0.0-2.0) Neutrophils # (Auto) 6.5 TH/MM3 (1.8-7.7) Lymphocytes # (Auto) 1.5 TH/MM3 (1.0-4.8) Monocytes # (Auto) 0.7 TH/MM3 (0-0.9) Eosinophils # (Auto) 0.3 TH/MM3 (0-0.4) Basophils # (Auto) 0.1 TH/MM3 (0-0.2) CBC Comment AUTO DIFF Differential Total Cells Counted 100 Neutrophils % (Manual) 68 % (16-70) Band Neutrophils % 5 % (0-6) Lymphocytes % 10 % (9-44) Monocytes % 5 % (0-8) Eosinophils % 3 % (0-4) Neutrophils # (Manual) 7.3 TH/MM3 (1.8-7.7) Metamyelocytes 5 % (0-1) Myelocytes 3 % (0-0) Differential Comment FINAL DIFF MANUAL Plasma Cells 1 % (0-0) Platelet Estimate NORMAL (NORMAL) Platelet Morphology Comment NORMAL (NORMAL) Red Cell Morphology Comment NORMAL (NORMAL) Prothrombin Time 10.7 SEC (9.8-11.6) Prothromb Time International Ratio 1.1 RATIO Blood Urea Nitrogen 13 MG/DL (7-18) 14 MG/DL (7-18) Creatinine 0.65 MG/DL (0.60-1.30) 0.62 MG/DL (0.60-1.30) Random Glucose 220 MG/DL (74-106) 223 MG/DL (74-106) Total Protein 6.5 GM/DL (6.4-8.2) Albumin 1.5 GM/DL (3.4-5.0) Calcium Level 8.1 MG/DL (8.5-10.1) 8.3 MG/DL (8.5-10.1) Phosphorus Level 3.1 MG/DL (2.5-4.9) Magnesium Level 1.6 MG/DL (1.5-2.5) Alkaline Phosphatase 115 U/L (45-117) Aspartate Amino Transf (AST/SGOT) 12 U/L (15-37) Alanine Aminotransferase (ALT/SGPT) 20 U/L (12-78) Total Bilirubin 0.4 MG/DL (0.2-1.0) Sodium Level 134 MEQ/L (136-145) 136 MEQ/L (136-145) Potassium Level 4.1 MEQ/L (3.5-5.1) 3.9 MEQ/L (3.5-5.1) Chloride Level 101 MEQ/L (98-107) 103 MEQ/L (98-107) Carbon Dioxide Level 26.5 MEQ/L (21.0-32.0) 26.1 MEQ/L (21.0-32.0) Anion Gap 7 MEQ/L (5-15) 7 MEQ/L (5-15) Estimat Glomerular Filtration Rate 125 ML/MIN (>89) 132 ML/MIN (>89) Triglycerides Level 205 MG/DL (42-150) Blood Gas Puncture Site RT RADIAL Blood Gas Patient Temperature 98.6 Blood Gas HCO3 25 mmol/L (22-26) Blood Gas Base Excess 0.7 mmol/L (-2-2) Blood Gas Oxygen Saturation 94 % (90-100) Arterial Blood pH 7.44 (7.380-7.420) Arterial Blood Partial Pressure CO2 37 mmHg (38-42) Arterial Blood Partial Pressure O2 87 mmHg (61-120) Arterial Blood Oxygen Content 10.5 Vol % (12.0-20.0) Arterial Blood Carboxyhemoglobin 1.1 % (0-4) Arterial Blood Methemoglobin 1.4 % (0-2) Blood Gas Hemoglobin 7.8 G/DL (12.0-16.0) Oxygen Delivery Device VENTILATOR Blood Gas Ventilator Setting SEE COMMENT Blood Gas Inspired Oxygen 40 % Test 07/09/17 10:30 Blood Urea Nitrogen 15 MG/DL (7-18) Creatinine 0.61 MG/DL (0.60-1.30) Random Glucose 267 MG/DL (74-106) Calcium Level 8.4 MG/DL (8.5-10.1) Sodium Level 135 MEQ/L (136-145) Potassium Level 3.6 MEQ/L (3.5-5.1) Chloride Level 99 MEQ/L (98-107) Carbon Dioxide Level 29.8 MEQ/L (21.0-32.0) Anion Gap 6 MEQ/L (5-15) Estimat Glomerular Filtration Rate 135 ML/MIN (>89) Result Diagram: 07/09/17 0400 07/09/17 1030 Microbiology Microbiology Date/Time Source Procedure Growth Status 07/01/17 12:09 Blood Peripheral Aerobic Blood Culture - Final NO GROWTH IN 5 DAYS Complete 07/01/17 12:09 Blood Peripheral Anaerobic Blood Culture - Final NO GROWTH IN 5 DAYS Complete 07/05/17 09:30 Sputum Expectorated Sputum Gram Stain - Final Complete 07/05/17 09:30 Sputum Culture - Final Pseudomonas Aeruginosa Escherichia Coli Complete 06/10/17 12:45 Urine Catheterized Urine Urine Culture - Final NO GROWTH IN 48 HOURS. Complete . Imaging Last Impressions Abdomen X-Ray 07/08/17 0000 Signed Impressions: Service Date/Time: Saturday, July 08, 2017 07:52 - CONCLUSION: 1. Limited examination with apparent mild interval improvement of central small bowel dilatation. Shan Davis MD Chest X-Ray 07/07/17 0600 Signed Impressions: Service Date/Time: Friday, July 07, 2017 04:08 - CONCLUSION: No significant interval change in left greater than right lower lung zone pulmonary parenchymal opacity. Rosas Rowell MD CT Angiography 07/01/17 Signed Impressions: Service Date/Time: Saturday, July 01, 2017 23:54 - CONCLUSION: 1. Study limited by motion. 2. No pulmonary emboli. 3. Worsening consolidation within the right upper lobe. Infectious etiology suspected. 4. Small bilateral pleural effusions and associated passive atelectasis. This is new. 5. Emphysematous changes. 6. 6 mm left upper lobe pulmonary nodule. Yuri Isidro Jr., MD Abdomen/Pelvis CT 07/01/17 Signed Impressions: Service Date/Time: Saturday, July 01, 2017 23:54 - CONCLUSION: 1. Breathing degraded study. 2. Dilatation of proximal jejunal loops which slowly taper. No obstructing mass or lesion. This could relate to a focal ileus. I cannot completely exclude a bowel obstruction. Small amount of free fluid. 3. Mild inflammatory change involving the mesentery adjacent to the ascending colon has improved somewhat. No pneumatosis involving the bowel observed. Yuri Isidro Jr., MD Brain MRI 06/22/17 0000 Signed Impressions: Service Date/Time: Thursday, June 22, 2017 12:10 - CONCLUSION: All ischemic changes, negative for acute ischemic event. Negative for parenchymal hemorrhage. Usman Pimentel MD FACR Head CT 06/04/17 Signed Impressions: Service Date/Time: Sunday, June 04, 2017 18:46 - CONCLUSION: 1. No significant change compared to 06/03/17. 2. No acute infarct, acute hemorrhage , mass effect or extra-axial fluid collection. 3. Scattered old lacunar infarcts within the bilateral basal ganglia. 4. Mild periventricular and subcortical white matter small vessel ischemic changes bilaterally. 5. Old right posterior parietal infarct. 6. Chronic opacification of right mastoid air cells. Mckay Stone MD Chest CT 06/04/17 Signed Impressions: Service Date/Time: Sunday, June 04, 2017 18:49 - CONCLUSION: 1. Right mid lung field and posterior bibasilar patchiness consistent with probable areas of pneumonia and/or atelectasis. Clinical correlation is recommended. 2. Tiny bilateral pleural effusions. 3. Cardiomegaly and coronary artery calcifications. 4. Minimal scattered emphysematous changes bilaterally. Mckay Stone MD . Procedures * 06/17/17 - PEG tube * 06/15/17 tracheostomy * 06/04/17 - intubated . Assessment and Plan Disease Oriented Problem List: (1) Colitis (2) Sepsis (3) HCAP (healthcare-associated pneumonia) (4) acute protein calorie malnutrition (5) Ileus (6) Acute hypercapnic respiratory failure (7) Altered mental status (8) Pneumonia (9) Acute renal failure (10) Acute encephalopathy Symptom Scale: (1) Pain 0-10 Scale: Unable to quantify (2) Dyspnea 0-10 Scale: Unable to quantify Pertinent Non-Medical Issues Psychosocial: . Supported by his mother, Tess who lives in [place]. And his brother Pedro Luis that lives in [place]. Spiritual: Judaism isabel. Legal: Per written Advanced Directive: Primary healthcare surrogate: Inés Javed, aunt. I spoke with her on 07/08/17 she DOES NOT wish to serve as HCS. A lternate HCS: Tess or Mckay Matthiasnata, parents. Father . Mother is willing to serve as healthcare surrogate. Ethical issues impacting care: no known concerns at this time. . Important Contacts * Tess Reilly, mother/HCS: [phone] * Pedro Luis and Johnnie Reilly, brother and mglkuz-tz-sim: [phone] or [phone] . Prognosis Mr. Reilly is a 61-year-old male with multiple medical comorbidities, prolonged hospitalization, status post tracheostomy and PEG tube inability to be weaned from mechanical ventilation. Overall prognosis appears poor for meaningful recovery. . Code Status: Alternative Code (intubation only) Plan * Decision Maker: Per written Advanced Directive: Primary healthcare surrogate: Inés Javed, aunt. I spoke with her on 07/08/17 she DOES NOT wish to serve as HCS. Alternate HCS: Tess or Mckay Melba, parents. Father . Mother is willing to serve as healthcare surrogate. * ALTERNATE CODE : intubation only. * Palliative care met with Tess maher. She plans to transition to comfort in the coming days. Hospice consulted in anticipation of withdrawal of life support , timing to be determined, may not be until Saturday. * Discussed with Dr. Gutierrez and nursing staff. * Hospice consulted. Please call Tess maher to coordinate time she can be here for consents/ withdrawal of life support. * SYMPTOMS: Pain: potential sources of pain include prolonged hospitalization, bedbound status, tubes including tracheostomy/PEG tube. Currently sedated on Versed and Precedex. Does not appear painful during my visit. Dyspnea: remains sedated with Precedex and Versed for vent synchrony. * Palliative care will continue to follow throughout hospital course to assist with symptom management and clarification of goals as needed. . Attestation To help prompt me to consider important information that might be impacting today's encounter and assessment, information from prior notes written by myself or my colleagues may have been "brought forward" into today's note. My signature on this note, however, is an attestation that I personally performed the exam, history, and/or decision-making noted today, and, unless otherwise indicated, the interactions with patient, family, and staff as well as the review of records all occurred today. I also attest that the listed assessment and stated plan reflect my best clinical judgment today based on the combination of historical information, prior notes, and today's exam/ interactions. When time spent is documented, it refers only to time spent today by the signer, or if indicated, combined time spent today by collaborating physician/nurse practitioner. Ariadne Mccray Jul 09, 2017 17:13
--- NOTE | 2017-07-09 19:13 | HHI.PR ---
Subjective Remarks 61 YOWM with VDRF,Trach,COPD AC 14, Fi02 60% Sedated with Diprivan and Precedex No Fever Gets agitated and starts belly breathing Increased swelling of ext Family considering withdrawl Objective Vital Signs Vital Signs Date Time Temp Pulse Resp B/P (MAP) Pulse Ox O2 Delivery O2 Flow Rate FiO2 07/09/17 18:30 63 07/09/17 18:00 66 07/09/17 16:30 62 07/09/17 16:01 62 07/09/17 16:00 62 07/09/17 16:00 40 07/09/17 16:00 98.6 07/09/17 16:00 97 40 07/09/17 15:30 61 07/09/17 15:00 63 07/09/17 15:00 63 32 149/71 (97) 98 07/09/17 14:30 65 07/09/17 14:30 65 32 139/67 (91) 97 07/09/17 14:00 65 28 151/72 (98) 98 07/09/17 14:00 65 07/09/17 13:30 66 32 135/66 (89) 100 07/09/17 13:30 66 07/09/17 13:00 61 35 133/60 (84) 100 07/09/17 13:00 61 07/09/17 12:31 60 28 140/65 (90) 96 07/09/17 12:31 60 07/09/17 12:01 63 29 164/74 (104) 99 07/09/17 12:01 63 07/09/17 12:00 64 29 97 07/09/17 12:00 98.6 07/09/17 12:00 64 07/09/17 12:00 40 07/09/17 11:44 97 40 07/09/17 11:31 63 29 138/74 (95) 97 07/09/17 11:31 63 07/09/17 11:02 69 39 121/65 (83) 95 07/09/17 11:02 69 07/09/17 10:30 65 32 141/74 (96) 96 07/09/17 10:30 65 07/09/17 10:00 66 07/09/17 10:00 66 31 147/74 (98) 97 07/09/17 09:30 68 07/09/17 09:30 68 25 113/63 (80) 95 07/09/17 09:00 68 07/09/17 09:00 68 21 122/60 (80) 94 07/09/17 08:40 99 40 07/09/17 08:31 61 07/09/17 08:31 61 23 119/57 (77) 95 07/09/17 08:00 62 33 99/58 (72) 93 07/09/17 08:00 62 07/09/17 08:00 40 07/09/17 06:00 61 07/09/17 04:40 98 40 07/09/17 04:00 40 07/09/17 04:00 98.7 65 35 118/62 (80) 93 07/09/17 04:00 65 07/09/17 02:00 67 07/09/17 01:22 98 40 07/09/17 00:00 66 07/09/17 00:00 98.4 66 30 106/57 (73) 96 07/09/17 00:00 40 07/08/17 22:00 71 07/08/17 20:00 98.9 74 34 89/52 (64) 96 07/08/17 20:00 74 07/08/17 20:00 40 07/08/17 19:51 96 40 I/O 07/08/17 07/08/17 07/08/17 07/09/17 07/09/17 07/09/17 07:00 15:00 23:00 07:00 15:00 23:00 Intake Total 2378 ml 2350 ml 160 ml 1062 ml 252 ml Output Total 2700 ml 1550 ml 4300 ml 1800 ml Balance -322 ml 2350 ml -1390 ml -3238 ml -1548 ml IV Total 2010 ml 2350 ml 100 ml 700 ml Tube Feeding 118 ml 262 ml 132 ml Tube Irrigant 250 ml Other 60 ml 100 ml 120 ml Output Urine Total 2700 ml 1550 ml 4300 ml 1800 ml # Bowel Movements 2 2 1 2 Result Diagram: 07/09/17 0400 07/09/17 1030 Objective Remarks GENERAL: MBMN WM, on Vent, sedated SKIN: Warm and dry. HEAD: Normocephalic. EYES: No scleral icterus. No injection or drainage. NECK: Supple, trachea midline. No JVD or lymphadenopathy. CARDIOVASCULAR: Regular rate and rhythm without murmurs, gallops, or rubs. RESPIRATORY: Breath sounds equal bilaterally. No accessory muscle use. GASTROINTESTINAL: Abdomen soft, non-tender, nondistended. MUSCULOSKELETAL: No cyanosis, or edema. BACK: Nontender without obvious deformity. No CVA tenderness. A/P Assessment and Plan VDRF S/P Trach COPD COPD Schzoaffective disorder Bipolar disorder PLAN: Vent support PRVC AC mode Cont Abx Sedation with Precedex and Versed Trickle tube feed Hospice consulted Syed Cuellar MD Jul 09, 2017 19:12
[2017-07-09] MEDS: FAT EMULSION 20% INJ 250 ML (Daily over 8 hours) IV-CENTRAL SCH (20:22)
[2017-07-10] VITALS (23 sets, daily range): BP systolic 79–162; BP diastolic 49–86; PULSE 56–87; RESP 11–32; TEMP 98.2–98.7; O2SAT 79–100
[2017-07-10] MEDS: FAMOTIDINE 20 MG/2 ML VIAL IV PUSH SCH ×2 (00:39→12:21)
[2017-07-10] MEDS: INSULIN NovoLIN REGULAR SUPPLEMENTAL SCALE SQ SCH ×4 (00:39→12:21)
[2017-07-10] MEDS: MIDAZOLAM 100 MG/NS 100 ML DRIP Premix IV PRN (00:40)
[2017-07-10] MEDS: DEXMEDETOMIDINE INJ 1,000 MCG in SODIUM CHLOR 0.9% 250 ML INJ 240 ML IV PRN ×2 (00:49→10:41)
[2017-07-10] MEDS: PIPERACIL-TAZO 4.5 GM PREMIX 100 ML IV SCH ×2 (02:18→10:40)
[2017-07-10] MEDS: CHLORHEXIDINE GLUCONATE 2 % 1 PACK (2 CLOTHS) TOP SCH (04:00)
[2017-07-10] MEDS: METOCLOPRAMIDE HCL 10 MG/2 ML VIAL IV PUSH SCH ×2 (04:54→12:21)
[2017-07-10 05:47] LABS: HEMOGLOBIN 7.8 GM/DL (13.0-17.0); MEAN CELL VOLUME 87.5 FL (80.0-100.0); MEAN CORPUSCULAR HEMOGLOBIN 29.7 PG (27.0-34.0); MEAN PLATELET VOLUME 7.3 FL (7.0-11.0); PLATELET COUNT 400 TH/MM3 (150-450); RED BLOOD COUNT 2.63 MIL/MM3 (4.50-5.90); RED CELL DISTRIBUTION WIDTH 15.2 % (11.6-17.2); WHITE BLOOD COUNT 13.9 TH/MM3 (4.0-11.0)
[2017-07-10 06:15] LABS: BICARBONATE 27.6 MEQ/L (21.0-32.0); CALCIUM 8.4 MG/DL (8.5-10.1); CREATININE 0.47 MG/DL (0.60-1.30)
--- NOTE | 2017-07-10 08:47 | HHI.PR ---
Subjective Remarks ON THE VENTILATOR SEDATED TRACH OK Objective Vital Signs Date Time Temp Pulse Resp B/P (MAP) Pulse Ox O2 Delivery O2 Flow Rate FiO2 07/10/17 06:00 84 07/10/17 04:23 100 40 07/10/17 04:00 40 07/10/17 04:00 98.5 80 32 115/62 (79) 99 07/10/17 04:00 80 07/10/17 02:22 99 40 07/10/17 02:00 87 07/10/17 00:00 98.7 79 30 113/63 (80) 97 07/10/17 00:00 79 07/10/17 00:00 40 07/09/17 22:00 94 07/09/17 21:38 100 40 07/09/17 20:00 40 07/09/17 20:00 64 07/09/17 20:00 98.5 64 23 135/80 (98) 99 07/09/17 18:30 63 07/09/17 18:00 66 07/09/17 16:30 62 07/09/17 16:01 62 07/09/17 16:00 62 07/09/17 16:00 40 07/09/17 16:00 98.6 07/09/17 16:00 97 40 07/09/17 15:30 61 07/09/17 15:00 63 07/09/17 15:00 63 32 149/71 (97) 98 07/09/17 14:30 65 07/09/17 14:30 65 32 139/67 (91) 97 07/09/17 14:00 65 28 151/72 (98) 98 07/09/17 14:00 65 07/09/17 13:30 66 32 135/66 (89) 100 07/09/17 13:30 66 07/09/17 13:00 61 35 133/60 (84) 100 07/09/17 13:00 61 07/09/17 12:31 60 28 140/65 (90) 96 07/09/17 12:31 60 07/09/17 12:01 63 29 164/74 (104) 99 07/09/17 12:01 63 07/09/17 12:00 64 29 97 07/09/17 12:00 98.6 07/09/17 12:00 64 07/09/17 12:00 40 07/09/17 11:44 97 40 07/09/17 11:31 63 29 138/74 (95) 97 07/09/17 11:31 63 07/09/17 11:02 69 39 121/65 (83) 95 07/09/17 11:02 69 07/09/17 10:30 65 32 141/74 (96) 96 07/09/17 10:30 65 07/09/17 10:00 66 07/09/17 10:00 66 31 147/74 (98) 97 07/09/17 09:30 68 07/09/17 09:30 68 25 113/63 (80) 95 07/09/17 09:00 68 07/09/17 09:00 68 21 122/60 (80) 94 I/O 07/09/17 07/09/17 07/09/17 07/10/17 07/10/17 07/10/17 07:00 15:00 23:00 07:00 15:00 23:00 Intake Total 1062 ml 332 ml 2036 ml Output Total 4300 ml 1800 ml 1900 ml Balance -3238 ml -1468 ml 136 ml IV Total 700 ml 80 ml 1932 ml Tube Feeding 262 ml 132 ml 104 ml Other 100 ml 120 ml Output Urine Total 4300 ml 1800 ml 1900 ml # Bowel Movements 1 2 1 Result Diagram: 07/10/1739907/10/17399 Objective Remarks GENERAL: SKIN: Warm and dry. HEAD: Atraumatic. Normocephalic. EYES: Pupils equal and round. No scleral icterus. No injection or drainage. ENT: No nasal bleeding or discharge. Mucous membranes pink and moist. NECK: Trachea midline. No JVD. tracheostomy in place CARDIOVASCULAR: Regular rate and rhythm. RESPIRATORY: No accessory muscle use. SCATTERED RHONCHI. GASTROINTESTINAL: Abdomen soft, non-tender, nondistended. Hepatic and splenic margins not palpable. MUSCULOSKELETAL: Extremities without clubbing, cyanosis, or edema. No obvious deformities. NEUROLOGICAL: Awake and alert. No obvious cranial nerve deficits. Motor grossly within normal limits. Five out of 5 muscle strength in the arms and legs. Normal speech. PSYCHIATRIC: Appropriate mood and affect; insight and judgment normal. Assessment and Plan Assessment and Plan RESPIRATORY FAILURE COPD PLAN VENT SUPPORT WEAN TOLERATED BRONCHODILATORS PULM. TOILET Cyndie Rodríguezhba Wadie MD Jul 10, 2017 08:47
[2017-07-10] MEDS: RESP: ALBUTEROL 2.5 MG/IPRATROPIUM 0.5 MG NEB (SCH) INH ×2 (08:58→12:26)
[2017-07-10] MEDS: SODIUM CHLORIDE 0.9% FLUSH 10 ML FLUSH IV FLUSH SCH ×4 (09:00→20:11)
[2017-07-10] MEDS: guanFACINE HCL 1 MG TAB PO SCH (09:00)
[2017-07-10] MEDS: NUTRISOURCE FIBER POWDER 1 PACK G-TUBE SCH (09:00)
[2017-07-10] MEDS: INSULIN DETEMIR 100 UNITS/ML VIAL SQ SCH (09:00)
[2017-07-10] MEDS: DEXT 5%-NACL 0.9% 1000 ML INJ 1,000 ML IV SCH (10:10)
[2017-07-10] MEDS: SENNOSIDES SYRUP 8.8 MG/5 ML CUP PO SCH (10:41)
[2017-07-10] MEDS: CHLORHEXIDINE 0.12% (ORAL KIT) 15 ML CUP MT SCH (10:42)
--- NOTE | 2017-07-10 11:33 | HHI.HCPN ---
Call from Tess Reilly, mother to request she be able to see a gunner's mate m when she arrives at hospital later today. She does not know what time she will be here today, I advised she can ask the nurses to call gunner's mate m when she arrives. She is awaiting call from hospice to determine timing to proceed with withdrawal of life support. Questions answered. . Ariadne Mccray Jul 10, 2017 11:33
--- NOTE | 2017-07-10 15:40 | HHI.CCPN ---
Subjective Remarks/Hospital Course 06/04: Mr. Reilly is a 61-year-old male with a history of COPD, hypertension, hyperlipidemia, CVA, schizoaffective disorder, bipolar disorder, GERD, renal failure, and arthritis who presented to the emergency room on 06/03/2017 from a detention facility for evaluation of altered mental status. Upon review of the medical records from the detention facility, it is noted he had a right lower lobe pneumonia diagnosed mid May. Head CT showed no acute infarct, acute hemorrhage, mass effect, or extra-axial fluid collection but scattered old lacunar infarcts within the bilateral basal ganglia. Mild periventricular and subcortical white matter small vessel ischemic changes bilaterally. Chest x-ray shows scattered bibasilar patchiness consistent with possible pneumonia. Per documentation : While in the ER, patient was in moderate respiratory distress with tachypnea and utilization of accessory abdominal muscles to breathe. His lung sounds are bilaterally congested and he is confused and a poor historian. His speech is slightly slurred but this is not a new finding. He was noted to be on 5 L nasal cannula with oxygen saturation of 94% in the emergency room. Patient was admitted to the ICU by the hospitalist service. He was initiated on heparin drip for suspicion of PE. He was also noted to have an elevated CPK and creatinine. His blood pressures were running high overnight. This afternoon patient developed worsening agitation and disorientation and confusion. His heparin was stopped earlier by Dr. Garcia due to low suspicion for PE. Patient developed worsening respiration status with respirations in the 30s and O2 sats in the mid 80s. Critical care medicine was consulted. Patient was emergently intubated by Dr. Elvira Gutierrez and I subsequently took over patient care. When I evaluated the patient he had been sedated for the intubation and is being placed on mechanical ventilation. History was obtained by discussion with Dr. Garcia, Dr. Gutierrez and ICU nursing staff as well as documentation in the chart. 06/05: Remains sedated, orally intubated on mechanical ventilation. 06/06: Sedated, orally intubated on mechanical ventilation. Failed C Pap trial today. Got extremely anxious on lightening sedation. 06/07 No events overnight. Sedated and intubated. Afebrile. 06/08 No events overnight. Sedated with Diprivan, Fentanyl and intubated. 06/09 Patient remains sedated and intubated. Afebrile.Did not tolerate CPAP trials yesterday. 06/10 Patient is sedated with Fentanyl and Diprivan. Afebrile. Did not tolerate CPAP yesterday as he became restless, agitated and tachycardic. 06/11 Patient remains sedated and intubated. Spiked fever with Tmax 101.1 06/12 No events overnight. Sedated and intubated. Afebrile. 06/13 Patient remains intubated and sedated with Diprivan, fentanyl in addition he is on Precedex drip. T:100.0 06/14 Patient remains sedated and intubated. Afebrile. Did not tolerate CPAP trials yesterday as he became tahypenic, tachycardic and restless. 06/15: agitation persists. respiratory failure persists. severely volume overloaded. has been intubated for almost 2 weeks. may require trach. CT abd/ pelvis without overt acute disease. no other source for fungemia. 06/16: s/p trach yesterday. no significant changes. 06/17: plan for PEG today. agitation persists with significant delirium. no other significant changes. 06/18: s/p PEG placement. weaning off sedation. still failing cpap trials. 06/19: cannot wean off precedex: agitated delirium persists. also still failing cpap trials. 06/20 No events overnight. On Precedex drip for agitation. T: 100.1 last night. 06/21 No events overnight. Remains on Precedex drip. Afebrile. 06/22 Patient is sedated with Fentanyl and Precedex. Afebrile. For MRI brain today. 06/23 Patient became hypotensive overnight and had episode of desaturation with says in mid 80's. Given 500ml 5% Albumin now off sedation ( Fentanyl and Precedex held). BP is better. In addition he was given Dulcolax suppos. and Mg citrate now having BM's. KUB this morning showed diffuse mild gaseous distention of bowel. FIO2 requirements is better now on 50% FIO2 with PEEP: 10 from FIO2 75 % overnight. CXR unchanged ( Consolidation LLL and Atelectasis right lung base) . T:99.9 06/24: Remains on mechanical ventilation via tracheostomy. CT abdomen pelvis done on 06/23 revealed pneumatosis involving cecum and transverse colon suggesting ischemic colitis. Gen. surgery consulted and patient evaluated by Dr. Monroe today who recommends medical management at this time with IV fluids and continuation of antibiotics. Patient not tolerating tube feeds and has abdominal distention. Maintaining blood pressure currently. 06/25: Remains on mechanical ventilation via tracheostomy. Does not appear to be in any acute distress. Still nothing by mouth. Being followed by general surgery for pneumatosis involving cecum and transverse colon. 06/26: Remains on mechanical ventilation via tracheostomy. Awake. Denies abdominal pain this morning. Has bowel sounds. Abdominal less distended. 06/27: no improvements. afebrile. restarting tube feeds slowly. 06/28: tube feeds held overnight for high residuals. reglan iv started. tolerated t-piece yesterday for short period. 06/29: In bed, awake and alert. On mechanical ventilation via tracheostomy. Not tolerating tube feeds with high residuals from PEG tube on suction. 06/30: Awake and alert. Denies any abdominal pain. Bilious emesis overnight with about 2200 cc suctioned out via PEG tube in last 24 hours. Being scheduled for colonoscopy by GI 07/01: Became tachypneic this morning with respiratory rate in the 40s. O2 sats remained in the 90s. Had to resume sedation with Versed and patient was placed back on PRBC mode mechanical ventilation. Chest x-ray done this morning shows bibasilar infiltrates, no pneumothorax or atelectasis noted. Became hypotensive requiring Levophed 2 mics per minute. Still not tolerating tube feeds and PEG tube remains to suction. Started on PPN yesterday. PICC line placed yesterday. 07/02: No intervention per general surgery Dr. Monroe. No intervention per GI which has signed off. Instructed to possibly begin trickle feeds 07/03: Approximally 900 cc of bilious fluid from gastric contents in the last 12 hours overnight. During the day last 12 hours approximately 300 cc of bilious gastric output. Patient was started on erythromycin 200 mg every 6 hours. Plan for repeat KUB in am . Patient continues on TPN 07/04: Last 24 hours, gastric output significantly decreased. GI plans for clamping of the G-tube today with initiation of trickle feeds in a.m..Plan for possibly performing endoscopy early next week under general anesthesia/ in the OR. Patient continues to have stool output. KUB slightly shows slight improvement in small bowel dilatation. 07/05:Trickle feeds initiated early this am., Per GI. Hemoglobin stable. Patient remains sedated. 07/06: Continues to tolerate tube feeds at 10 cc/an hour. 90 cc residual and approximately 24 hours. UA resulted noted trace occult blood. Will continue to monitor, serial hemoglobin and hematocrit. Patient continues on TPN. Patient continues to fail CPAP trials. 07/07: Afebrile. Tolerating tube feeds at 10 cc/an hour. Tube feed residuals remain at 100 cc per 12 hour shift. The patient continues to fail CPAP trials. Close monitoring of hemoglobin, noted slight decrease. 07/08: Patient noted to have continued elevation in glucose levels greater than 200, Levemir increased. Patient continues to tolerate tube feeds at 10 cc/an hour, with residuals over the last 12 hours approximately 60 cc. The patient continues on prokinetic GI motility medications Reglan 10 mg every 8 hours and erythromycin 200 mg every 6 hours. Patient was noted to have 4 bowel movements over the last 12 hours. 07/09: No acute events overnight. Patient continues to be hyperglycemic. Pharmacy consulted regarding TPN mixture to add insulin 20 units . Patient received 40 mg of Lasix and diuresed approximately 4 L last evening. BMP pending. The patient continues to have minimal residuals every 12 hours via G- tube approximately 60-80 cc. The patient continues on Precedex and Versed infusions for ventilator synchrony. Hemoglobin stable 8.6. KUB showed improved small bowel dilation. 07/10: Afebrile No acute events overnight. No change in status in the last 24 hours. Palliative care team conference with family decision made for comfort care measures with ventilator withdrawal and possible transfer to Hospice this evening. Objective Vital Signs Date Time Temp Pulse Resp B/P (MAP) Pulse Ox O2 Delivery O2 Flow Rate FiO2 07/10/17 13:00 83 28 136/66 (89) 100 07/10/17 12:27 40 07/10/17 12:00 98.2 Intake and Output 07/10/17 07/10/17 07/11/17 08:00 16:00 00:00 Intake Total 2036 ml Output Total 1900 ml Balance 136 ml Result Diagram: 07/10/17 0400 07/10/17 0400 Imaging Last Impressions Chest X-Ray 1/4/18 0600 Signed Impressions: Service Date/Time: July 03:32 - CONCLUSION: Unchanged bibasilar infiltrates. Yuri Isidro Jr., MD Abdomen X-Ray 07/04/17599 Signed Impressions: Service Date/Time: July 03:35 - CONCLUSION: Dilated small bowel has improved slightly from the prior study. Yuri Isidro Jr., MD CT Angiography 07/01/17 0000 Signed Impressions: Service Date/Time: Saturday, July 01, 2017 23:54 - CONCLUSION: 1. Study limited by motion. 2. No pulmonary emboli. 3. Worsening consolidation within the right upper lobe. Infectious etiology suspected. 4. Small bilateral pleural effusions and associated passive atelectasis. This is new. 5. Emphysematous changes. 6. 6 mm left upper lobe pulmonary nodule. Yuri Isidro Jr., MD Abdomen/Pelvis CT 07/01/17 0000 Signed Impressions: Service Date/Time: Saturday, July 01, 2017 23:54 - CONCLUSION: 1. Breathing degraded study. 2. Dilatation of proximal jejunal loops which slowly taper. No obstructing mass or lesion. This could relate to a focal ileus. I cannot completely exclude a bowel obstruction. Small amount of free fluid. 3. Mild inflammatory change involving the mesentery adjacent to the ascending colon has improved somewhat. No pneumatosis involving the bowel observed. Yuri Isidro Jr., MD Brain MRI 06/22/17 0000 Signed Impressions: Service Date/Time: Thursday, June 22, 2017 12:10 - CONCLUSION: All ischemic changes, negative for acute ischemic event. Negative for parenchymal hemorrhage. Usman Pimentel MD FACR Head CT 06/04/17 0000 Signed Impressions: Service Date/Time: Sunday, June 04, 2017 18:46 - CONCLUSION: 1. No significant change compared to 06/03/17. 2. No acute infarct, acute hemorrhage , mass effect or extra-axial fluid collection. 3. Scattered old lacunar infarcts within the bilateral basal ganglia. 4. Mild periventricular and subcortical white matter small vessel ischemic changes bilaterally. 5. Old right posterior parietal infarct. 6. Chronic opacification of right mastoid air cells. Mckay Stone MD Chest CT 06/04/17 0000 Signed Impressions: Service Date/Time: Sunday, June 04, 2017 18:49 - CONCLUSION: 1. Right mid lung field and posterior bibasilar patchiness consistent with probable areas of pneumonia and/or atelectasis. Clinical correlation is recommended. 2. Tiny bilateral pleural effusions. 3. Cardiomegaly and coronary artery calcifications. 4. Minimal scattered emphysematous changes bilaterally. Mckay Stone MD Last 48 hours Impressions Abdomen X-Ray 06/24/17 0600 Signed Impressions: Service Date/Time: Saturday, June 24, 2017 03:14 - CONCLUSION: Dilated transverse colon and no definite pneumatosis intestinalis or technique, however the patient's prior CT examination was suggestive of pneumatosis. Domingo Pollack MD Chest X-Ray 06/24/17 0000 Signed Impressions: Service Date/Time: Saturday, June 24, 2017 03:08 - CONCLUSION: Bibasilar atelectasis and/or infiltrate is seen. Domingo Pollack MD Chest X-Ray 06/23/17 0000 Signed Impressions: Service Date/Time: Friday, June 23, 2017 03:45 - CONCLUSION: No significant interval change Arvind Hernandez MD CT Angiography 06/23/17 0000 Signed Impressions: Service Date/Time: Friday, June 23, 2017 20:34 - CONCLUSION: 1. No evidence of pulmonary embolus. 2. Increased patchy bilateral pulmonary consolidation with mild thin-walled cavitation of focal consolidation in the right upper lobe. This finding could be related consolidation of an area of long with emphysema involvement. 3. Mild to moderate upper lobe pulmonary parenchymal emphysema is seen. Rosas Rowell MD Abdomen/Pelvis CT 06/23/17 0000 Signed Impressions: Service Date/Time: Friday, June 23, 2017 20:34 - CONCLUSION: 1. Bowel wall pneumatosis involving the cecum and proximal transverse colon. Findings are suspicious for ischemic colitis. Surrounding inflammatory change in the intra-abdominal fat. No portal venous gas or free air identified. 2. Prominent bilateral lower lobe pulmonary consolidation. Rosas Rowell MD Abdomen X-Ray 06/23/17 0000 Signed Impressions: Service Date/Time: Friday, June 23, 2017 03:51 - CONCLUSION: Diffuse mild gaseous distention of bowel Arvind Hernandez MD Last Impressions Chest X-Ray 06/23/17 0000 Signed Impressions: Service Date/Time: Friday, June 23, 2017 03:45 - CONCLUSION: No significant interval change Arvind Hernandez MD Abdomen X-Ray 06/23/17 0000 Signed Impressions: Service Date/Time: Friday, June 23, 2017 03:51 - CONCLUSION: Diffuse mild gaseous distention of bowel Arvnid Hernandez MD Brain MRI 06/22/17 0000 Signed Impressions: Service Date/Time: Thursday, June 22, 2017 12:10 - CONCLUSION: All ischemic changes, negative for acute ischemic event. Negative for parenchymal hemorrhage. Usman Pimentel MD FACR Abdomen/Pelvis CT 06/14/17 0000 Signed Impressions: Service Date/Time: Wednesday, June 14, 2017 22:32 - CONCLUSION: 1. Increasing basilar lung consolidation since chest CT from June 04. 2. Mild ileus. No bowel obstruction, free air or free fluid. 3. Left hip replacement. Advanced osteoarthritis right hip. NG in stomach. Rectal tube present. Humphrey Weston MD Head CT 06/04/17 0000 Signed Impressions: Service Date/Time: Sunday, June 04, 2017 18:46 - CONCLUSION: 1. No significant change compared to 06/03/17. 2. No acute infarct, acute hemorrhage , mass effect or extra-axial fluid collection. 3. Scattered old lacunar infarcts within the bilateral basal ganglia. 4. Mild periventricular and subcortical white matter small vessel ischemic changes bilaterally. 5. Old right posterior parietal infarct. 6. Chronic opacification of right mastoid air cells. Mckay Stone MD Chest CT 06/04/17 0000 Signed Impressions: Service Date/Time: Sunday, June 04, 2017 18:49 - CONCLUSION: 1. Right mid lung field and posterior bibasilar patchiness consistent with probable areas of pneumonia and/or atelectasis. Clinical correlation is recommended. 2. Tiny bilateral pleural effusions. 3. Cardiomegaly and coronary artery calcifications. 4. Minimal scattered emphysematous changes bilaterally. Mckay Stone MD Objective Remarks GENERAL: Patient is 61 yo gentleman on ventilator via trach sedated on Versed and Precedex infusion to maintain ventilator synchrony SKIN: Warm and dry. HEAD: Normocephalic. EYES: No scleral icterus. No injection or drainage. NECK: trachea midline. No JVD. + Trach CARDIOVASCULAR: Regular rate and rhythm. RESPIRATORY: equal chest rise. 40% fio2. Clear to auscultation GASTROINTESTINAL: Abdomen soft, protuberant non-tender, minimally distended, bowel sounds present. Tube feeds infusing, minimal residuals. MUSCULOSKELETAL: No cyanosis, 3+ edema. Neuro: Off sedation, follows simple commands intermittently. A/P Assessment and Plan Assessment: 61yM with history of schizoaffective d/o and bipolar d/o who presented with acute hypoxic respiratory failure and now fungemia without overt source. Not improving on pathway. No meaningful improvements over last 2 weeks. s/p trach 06/15 and PEG 06/17. remains off pathway. needs long-term acute care level of rehabilitation. tube feed intolerance persists. has been without nutrition since 06/24. Started on PPN 06/30, ->TPN 07/01 Plan: Neuro: Acute Metabolic Encephalopathy Agitated Delirium - improving. Schizoaffective disorder/bipolar disorder History of alcohol abuse History of CVA Monitor neuro status. Resumed sedation with Versed gtt on 07/01. Chin continues on Versed and Precedex infusion for ventilator synchrony and analgesia MRI brain 06/22: No acute ischemic events, no hemorrhage Lactulose discontinued EEG showed mod. encephalopathy Neuro is following. Dr. Rosibel Cheatham 10mg IM q12h prn for agitation CV: Uncontrolled hypertension - resolved. hyperlipidemia Monitor HR and BP keep MAP>65mmHg Hold antihypertensive meds ( Norvasc 5mg daily, clonidine 0.3mg po q8h, Lopressor 50mg Q12) 2-D echo with normal LV/RV function Pulmo: Acute respiratory failure requiring mechanical ventilation - persistent. COPD exacerbation Resolving community acquired pneumonia Intubated and placed on mechanical ventilation on 06/04. Continue with vent support keep sat >92%. Vent bundle, bronchodilators, on prednisone taper On PRVC CTA chest negative for PE. trach 06/[address] Sapp/Alexander continue daily SBTs. t-piece trials if tolerated. Pulmonary following-Dr. Cuellar GI/liver: GERD Acute protein calorie malnutrition- severe Hyperglycemia 06/23 KUB abdomen: Mild gaseous distention of bowel Ct abd/pelvis 06/23: Pneumatosis involving cecum and transverse colon concerning for ischemia. C. Diff negative hold bowel regimen. Surgery following patient for ischemic colitis- no surgical intervention recommended at this time and they have signed off. I discussed case with Dr. Anival Madden covering for Dr. Monroe on 06/30 as patient continues to have ileus with bilious output from PEG tube and not tolerating tube feeds. hold tube feeds, keep reglan iv. restart tube feeds 06/29 after 24h of reglan. having regular bowel movements. passing flatus. Consulted GI and view of ileus for evaluation of ileus and ischemic colitis. They're planning colonoscopy for further evaluation. Started PPN on 06/30 as unable to tolerate PEG tube feeds. PICC line placed and was switched to TPN on 07/01 KUB done on 06/29 with dilated small and large bowel loops. 07/02: Discussed with Dr. Caraballo requested to restart tube feeds. Neurosurgery has signed off 07/04 Follow-up KUB -slight improvement in dilated small bowel. No pneumatosis. : Continued improvement of small bowel dilation 07/04 Erythromycin 200 mg every 6 hours IV started , patient continues on metoclopramide, PEG tube clamped for 24 hours 07/05 Trickle feeds initiated , minimal residuals. Tentative plan for possible EGD next week per GI 07/08 Levimir increased to 12 units twice a day, 20 units Insulin added to TPN mixture Renal/: ROSENDO/ CKD - resolved. Rhabdomyolysis - resolved. Acute intravascular volume overload- resolved. Metabolic alkalosis- resolving. Monitor renal function, electrolytes replacement per protocol. saline lock ivf. 07/08- Lasix 40 mg IV 1 dose-1 liter diuresed l ID: Fungemia- resolved. Community Acquired Pneumonia- resolved. Ischemic colitis Sepsis [facility] Associated pneumonia with pseudomonas/e.coli completed full 14 day course of micagunfin for fungemia. Continue Zosyn. Micafungin added per ID CT abdomen pelvis on 06/23 shows pneumatosis involving cecum and transverse colon consistent with ischemic colitis. Patient evaluated by general surgery Dr. Monroe who at this time recommends continuing IV fluids and antibiotics and he will be available for surgery if patient develops evidence of peritonitis or worsens clinically. ID is following Sputum cx: E.coli on 06/04, sputum 06/10: normal resp tamara BC 06/14, 06/19 : NGTD, Sputum cx 06/21: E.coli, Pseudomonas Endocrine: Hyperglycemia of critical illness SSI medium scale, q4h Heme: Anemia secondary to chronic disease Monitor CBC. Prophylaxis: Pepcid/SCDs. SQ Lovenox Lines: Right sided PICC line placed 06/30 Level 2 follow up D/W CHARTING CLERK at bedside (Diana). 07/09 Palliative care team Ms. Mccray following, the patient was made alternate CODE STATUS intubation only. 07/10:Palliative Care Team conference with family. Plan for ventilator withdrawal this evening and possible transfer to hospice facility. Physician Elvira Null MD Jul 10, 2017 15:40
[2017-07-10] MEDS ORDERED: HYOSCYAMINE 0.5 MG/ML AMP IV PUSH ONE (15:45)
[2017-07-10] MEDS ORDERED: HYDROmorphone HCL PF 2 MG/ML VIAL IV PUSH ONE ×2 (15:45→16:15)
[2017-07-10] MEDS ORDERED: MIDAZOLAM HCL 5 MG/ML VIAL (1 ML) IV PUSH ONE ×2 (15:45→16:15)
[2017-07-10] MEDS ORDERED: MIDAZOLAM 100 MG/100 ML INJ 100 ML IV PRN (16:00)
[2017-07-10] MEDS ORDERED: HYOSCYAMINE 0.5 MG/ML AMP IV PUSH PRN (16:15)
[2017-07-10] MEDS ORDERED: LORazepam 2 MG/ML VIAL IV PUSH PRN (16:15)
[2017-07-10] MEDS ORDERED: BISACODYL 10 MG SUPP RECTAL PRN (16:15)
[2017-07-10] MEDS ORDERED: ACETAMINOPHEN 650 MG SUPP RECTAL PRN (16:15)
[2017-07-10] MEDS ORDERED: FUROSEMIDE 20 MG/2 ML VIAL IV PUSH PRN (16:15)
[2017-07-10] MEDS ORDERED: HYDROmorphone HCL PF 2 MG/ML VIAL IV PUSH PRN (16:15)
--- NOTE | 2017-07-10 16:47 | HHI.HCPN ---
Reason for visit a. To assist with evaluation and management of symptoms including:dyspnea, pain. b. To assist medical decision maker(s) with: better understanding of current medical conditions; weighing benefits/burdens of medical treatment options; making medical treatment decisions. . Subjective/Interval History Patient seen and examined in ICU. Mother and hospice nurse, Mamie at bedside. Discussed with Dr. Gutierrez and nurse, Diana. Afebrile. Tachypneic on vent. Hemoglobin 7.8. Abdomen remains mildly distended. Trickle tube feeds at 10cc/hr. On TPN. Albumin 1.5. . Family/friend interactions Met with hospice nurse, Mamie and mother at bedside. Mother verbalizes it is time to let him go. She is appropriately tearful. She is ready to proceed with withdrawal of life support with hospice support. She agrees to transfer to [facility] this evening if he appears stable enough for transport 1 hour after withdrawal of life support. Questions answered. Copper Etcher visited. . Advance Directives Living Will: Copy in medical record Health Care Surrogate: Copy in medical record Advance Directive Specifics Date completed: 09/27/2015 . Health Care Surrogate(s): Designation of healthcare surrogate: Primary healthcare surrogate: Inés Javed, aunt. I spoke with her on 07/08/17 she DOES NOT wish to serve as HCS. Alternate HCS: Tess or Mckay Reilly, parents. Father . Mother is willing to serve as healthcare surrogate. . Documented care wishes: Living will states he would not want to live on [facility] vent or be bedbound. . Significant change in goals: NO CODE, admitted to [facility]. Plan for withdrawal of life support this evening and transfer to care center 1 hour after withdrawal if stable enough for transport. . Objective Vital Signs Date Time Temp Pulse Resp B/P (MAP) Pulse Ox O2 Delivery O2 Flow Rate FiO2 07/10/17 15:57 100 40 07/10/17 13:00 83 28 136/66 (89) 100 07/10/17 12:27 100 40 07/10/17 12:00 98.2 75 27 140/81 (100) 98 07/10/17 11:01 80 28 148/83 (104) 99 07/10/17 10:00 79 27 162/73 (102) 99 07/10/17 09:00 94 40 07/10/17 09:00 75 27 161/86 (111) 100 07/10/17 08:00 77 29 146/75 (98) 100 07/10/17 06:00 84 07/10/17 04:23 100 40 07/10/17 04:00 40 07/10/17 04:00 98.5 80 32 115/62 (79) 99 07/10/17 04:00 80 07/10/17 02:22 99 40 07/10/17 02:00 87 07/10/17 00:00 98.7 79 30 113/63 (80) 97 07/10/17 00:00 79 07/10/17 00:00 40 07/09/17 22:00 94 07/09/17 21:38 100 40 07/09/17 20:00 40 07/09/17 20:00 64 07/09/17 20:00 98.5 64 23 135/80 (98) 99 07/09/17 18:30 63 07/09/17 18:00 66 07/09/17 16:30 62 Intake & Output 07/10/17 07/10/17 07:00 19:00 Intake Total 2116 ml Output Total 1900 ml Balance 216 ml IV Total 2012 ml Tube Feeding 104 ml Output Urine Total 1900 ml # Bowel Movements 1 Physical Exam CONSTITUTIONAL/GENERAL: This is an adequately nourished patient, sedated on mechanical ventilation TUBES/LINES/DRAINS: tracheostomy to vent, PEG tube, PIV left forearm, right upper extremity pick line, soft wrist restraints, condom catheter, SCD's, PODUS boots. SKIN: Pale. Ecchymoses on upper extremities. No wounds seen anteriorly. Skin temperature appropriate. Not diaphoretic. ENT: unable to assess hearing. Nose without bleeding or purulent drainage. poor dentition. NECK: tracheostomy to mechanical ventilation. CARDIOVASCULAR: Regular rate and rhythm without murmurs. RESPIRATORY/CHEST: mildly labored, shallow respirations on mechanical vent, tachypneic. Diminished breath sounds bilaterally. GASTROINTESTINAL: Abdomen soft, mildly distended. Bowel sounds hypoactive. GENITOURINARY: Without palpable bladder distension. Catheter in place. MUSCULOSKELETAL: Bilateral UE edema. NEUROLOGICAL: Sedated. PSYCHIATRIC: Sedated. . Diagnostic Tests Laboratory Laboratory Tests Test 07/08/17 05:20 07/09/17 04:00 07/09/17 10:30 1/10/18 04:00 White Blood Count 9.5 TH/MM3 (4.0-11.0) 10.1 TH/MM3 (4.0-11.0) 13.9 TH/MM3 (4.0-11.0) Red Blood Count 2.55 MIL/MM3 (4.50-5.90) 2.31 MIL/MM3 (4.50-5.90) 2.63 MIL/MM3 (4.50-5.90) Hemoglobin 7.5 GM/DL (13.0-17.0) 8.6 GM/DL (13.0-17.0) 7.8 GM/DL (13.0-17.0) Hematocrit 22.4 % (39.0-51.0) 24.0 % (39.0-51.0) 23.0 % (39.0-51.0) Mean Corpuscular Volume 87.9 FL (80.0-100.0) 103.9 FL (80.0-100.0) 87.5 FL (80.0-100.0) Mean Corpuscular Hemoglobin 29.3 PG (27.0-34.0) 37.2 PG (27.0-34.0) 29.7 PG (27.0-34.0) Mean Corpuscular Hemoglobin Concent 33.3 % (32.0-36.0) 35.8 % (32.0-36.0) 34.0 % (32.0-36.0) Red Cell Distribution Width 15.0 % (11.6-17.2) 16.6 % (11.6-17.2) 15.2 % (11.6-17.2) Platelet Count 332 TH/MM3 (150-450) 334 TH/MM3 (150-450) 400 TH/MM3 (150-450) Mean Platelet Volume 7.1 FL (7.0-11.0) 7.2 FL (7.0-11.0) 7.3 FL (7.0-11.0) Blood Urea Nitrogen 14 MG/DL (7-18) 15 MG/DL (7-18) 13 MG/DL (7-18) Creatinine 0.62 MG/DL (0.60-1.30) 0.61 MG/DL (0.60-1.30) 0.47 MG/DL (0.60-1.30) Random Glucose 223 MG/DL (74-106) 267 MG/DL (74-106) 153 MG/DL (74-106) Calcium Level 8.3 MG/DL (8.5-10.1) 8.4 MG/DL (8.5-10.1) 8.4 MG/DL (8.5-10.1) Sodium Level 136 MEQ/L (136-145) 135 MEQ/L (136-145) 136 MEQ/L (136-145) Potassium Level 3.9 MEQ/L (3.5-5.1) 3.6 MEQ/L (3.5-5.1) 3.7 MEQ/L (3.5-5.1) Chloride Level 103 MEQ/L (98-107) 99 MEQ/L (98-107) 101 MEQ/L (98-107) Carbon Dioxide Level 26.1 MEQ/L (21.0-32.0) 29.8 MEQ/L (21.0-32.0) 27.6 MEQ/L (21.0-32.0) Anion Gap 7 MEQ/L (5-15) 6 MEQ/L (5-15) 7 MEQ/L (5-15) Estimat Glomerular Filtration Rate 132 ML/MIN (>89) 135 ML/MIN (>89) 182 ML/MIN (>89) Result Diagram: 07/10/17 0400 07/10/17 0400 Microbiology Microbiology Date/Time Source Procedure Growth Status 07/01/17 12:09 Blood Peripheral Aerobic Blood Culture - Final NO GROWTH IN 5 DAYS Complete 07/01/17 12:09 Blood Peripheral Anaerobic Blood Culture - Final NO GROWTH IN 5 DAYS Complete 07/05/17 09:30 Sputum Expectorated Sputum Gram Stain - Final Complete 07/05/17 09:30 Sputum Culture - Final Pseudomonas Aeruginosa Escherichia Coli Complete 06/10/17 12:45 Urine Catheterized Urine Urine Culture - Final NO GROWTH IN 48 HOURS. Complete Imaging Last Impressions Abdomen X-Ray 07/08/17 0000 Signed Impressions: Service Date/Time: Saturday, July 08, 2017 07:52 - CONCLUSION: 1. Limited examination with apparent mild interval improvement of central small bowel dilatation. Shan Davis MD Chest X-Ray 07/07/17 0600 Signed Impressions: Service Date/Time: Friday, July 07, 2017 04:08 - CONCLUSION: No significant interval change in left greater than right lower lung zone pulmonary parenchymal opacity. Rosas Rowell MD CT Angiography 07/01/17 0000 Signed Impressions: Service Date/Time: Saturday, July 01, 2017 23:54 - CONCLUSION: 1. Study limited by motion. 2. No pulmonary emboli. 3. Worsening consolidation within the right upper lobe. Infectious etiology suspected. 4. Small bilateral pleural effusions and associated passive atelectasis. This is new. 5. Emphysematous changes. 6. 6 mm left upper lobe pulmonary nodule. Yuri Isidro Jr., MD Abdomen/Pelvis CT 07/01/17 0000 Signed Impressions: Service Date/Time: Saturday, July 01, 2017 23:54 - CONCLUSION: 1. Breathing degraded study. 2. Dilatation of proximal jejunal loops which slowly taper. No obstructing mass or lesion. This could relate to a focal ileus. I cannot completely exclude a bowel obstruction. Small amount of free fluid. 3. Mild inflammatory change involving the mesentery adjacent to the ascending colon has improved somewhat. No pneumatosis involving the bowel observed. Yuri Isidro Jr., MD Brain MRI 06/22/17 0000 Signed Impressions: Service Date/Time: Thursday, June 22, 2017 12:10 - CONCLUSION: All ischemic changes, negative for acute ischemic event. Negative for parenchymal hemorrhage. Usman Pimentel MD FACR Head CT 06/04/17 0000 Signed Impressions: Service Date/Time: Sunday, June 04, 2017 18:46 - CONCLUSION: 1. No significant change compared to 06/03/17. 2. No acute infarct, acute hemorrhage , mass effect or extra-axial fluid collection. 3. Scattered old lacunar infarcts within the bilateral basal ganglia. 4. Mild periventricular and subcortical white matter small vessel ischemic changes bilaterally. 5. Old right posterior parietal infarct. 6. Chronic opacification of right mastoid air cells. Mckay Stone MD Chest CT 06/04/17 0000 Signed Impressions: Service Date/Time: Sunday, June 04, 2017 18:49 - CONCLUSION: 1. Right mid lung field and posterior bibasilar patchiness consistent with probable areas of pneumonia and/or atelectasis. Clinical correlation is recommended. 2. Tiny bilateral pleural effusions. 3. Cardiomegaly and coronary artery calcifications. 4. Minimal scattered emphysematous changes bilaterally. Mckay Stone MD Procedures * 06/17/17 - PEG tube * 06/15/17 tracheostomy * 06/04/17 - intubated . Assessment and Plan Disease Oriented Problem List: (1) Colitis (2) Sepsis (3) HCAP (healthcare-associated pneumonia) (4) acute protein calorie malnutrition (5) Ileus (6) Acute hypercapnic respiratory failure (7) Altered mental status (8) Pneumonia (9) Acute renal failure (10) Acute encephalopathy Symptom Scale: (1) Pain 0-10 Scale: Unable to quantify (2) Dyspnea 0-10 Scale: Unable to quantify Pertinent Non-Medical Issues Psychosocial: . Supported by his mother, Tess who lives in [place]. And his brother Pedro Luis that lives in [place]. Spiritual: Sabianist isabel. Legal: Per written Advanced Directive: Primary healthcare surrogate: Inés Boltonberthaer, aunt. I spoke with her on 07/08/17 she DOES NOT wish to serve as HCS. A lternate HCS: Tess or Mckay Reilly, parents. Father . Mother is willing to serve as healthcare surrogate. Ethical issues impacting care: no known concerns at this time. . Important Contacts * Tess Reilly, mother/HCS: [phone] * Noel Reilly, brother and [id number]-juu: [phone] or . Prognosis Mr. Reilly is a 61-year-old male with multiple medical comorbidities, prolonged hospitalization, status post tracheostomy and PEG tube inability to be weaned from mechanical ventilation. Overall prognosis appears poor for meaningful recovery. . Code Status: No Code Plan * Decision Maker: Per written Advanced Directive: Primary healthcare surrogate: Iénsvivi Doraner, aunt. I spoke with her on 07/08/17 she DOES NOT wish to serve as HCS. Alternate HCS: Tess or Mckay Melba, parents. Father . Mother is willing to serve as healthcare surrogate. * NO CODE * Palliative care met with hospice nurse, Mamie and mother at bedside. Mother verbalizes it is "time to let him go." She is appropriately tearful. She is ready to proceed with withdrawal of life support with hospice support. She agrees to transfer to [facility] this evening if he appears stable enough for transport 1 hour after withdrawal of life support. * Copper Etcher visited. * Exhibits B & C on chart. * SYMPTOMS: Pain: potential sources of pain include prolonged hospitalization, bedbound status, tubes including tracheostomy/PEG tube. Does not appear painful during my visit. Dyspnea: remains sedated with Precedex and Versed for vent synchrony. Orders written for transition to comfort measures with withdrawal of life support. Plan to continue Versed drip until DC to care center with bolus dose prior to DC. * Palliative care will continue to follow throughout hospital course to assist with symptom management and clarification of goals as needed. . Attestation To help prompt me to consider important information that might be impacting today's encounter and assessment, information from prior notes written by myself or my colleagues may have been "brought forward" into today's note. My signature on this note, however, is an attestation that I personally performed the exam, history, and/or decision-making noted today, and, unless otherwise indicated, the interactions with patient, family, and staff as well as the review of records all occurred today. I also attest that the listed assessment and stated plan reflect my best clinical judgment today based on the combination of historical information, prior notes, and today's exam/ interactions. When time spent is documented, it refers only to time spent today by the signer, or if indicated, combined time spent today by collaborating physician/nurse practitioner. Ariadne Mccray Jul 10, 2017 16:47
[2017-07-10] MEDS ORDERED: MIDAZOLAM HCL 5 MG/5 ML VIAL IV PUSH ONE (17:00)
[2017-07-10] MEDS: LORazepam 2 MG/ML VIAL IV PUSH SCH (20:10)
[2017-07-10] MEDS: HYDROmorphone HCL PF 2 MG/ML VIAL IV PUSH SCH (20:11)
[2017-07-10] MEDS: LORazepam 2 MG/ML VIAL IV PUSH PRN (22:39)
[2017-07-10] MEDS: HYDROmorphone HCL PF 2 MG/ML VIAL IV PUSH PRN (22:40)
[2017-07-11] VITALS: PULSE 57
[2017-07-11] MEDS: HYDROmorphone HCL PF 2 MG/ML VIAL IV PUSH PRN ×7 (01:23→06:52)
[2017-07-11] MEDS: LORazepam 2 MG/ML VIAL IV PUSH PRN ×5 (01:23→06:18)
[2017-07-11 02:00] VITALS: PULSE 126
[2017-07-11 04:00] VITALS: PULSE 155
[2017-07-11] MEDS: LORazepam 2 MG/ML VIAL IV PUSH SCH ×3 (04:11→08:11)
[2017-07-11] MEDS: HYDROmorphone HCL PF 2 MG/ML VIAL IV PUSH SCH ×3 (04:11→08:10)
[2017-07-11 06:00] VITALS: PULSE 140
[2017-07-11 07:15] VITALS: BP 70/48; PULSE 129; RESP 20; O2SAT 73
[2017-07-11 08:00] VITALS: PULSE 129
--- NOTE | 2017-07-11 08:02 | HHI.CCPN ---
Subjective Remarks/Hospital Course 06/04: Mr. Reilly is a 61-year-old male with a history of COPD, hypertension, hyperlipidemia, CVA, schizoaffective disorder, bipolar disorder, GERD, renal failure, and arthritis who presented to the emergency room on 06/03/2017 [facility] for evaluation of altered mental status. Upon review of the medical records from the penitentiary facility, it is noted he had a right lower lobe pneumonia diagnosed mid May. Head CT showed no acute infarct, acute hemorrhage, mass effect, or extra-axial fluid collection but scattered old lacunar infarcts within the bilateral basal ganglia. Mild periventricular and subcortical white matter small vessel ischemic changes bilaterally. Chest x-ray shows scattered bibasilar patchiness consistent with possible pneumonia. Per documentation : While in the ER, patient was in moderate respiratory distress with tachypnea and utilization of accessory abdominal muscles to breathe. His lung sounds are bilaterally congested and he is confused and a poor historian. His speech is slightly slurred but this is not a new finding. He was noted to be on 5 L nasal cannula with oxygen saturation of 94% in the emergency room. Patient was admitted to the ICU by the hospitalist service. He was initiated on heparin drip for suspicion of PE. He was also noted to have an elevated CPK and creatinine. His blood pressures were running high overnight. This afternoon patient developed worsening agitation and disorientation and confusion. His heparin was stopped earlier by Dr. Garcia due to low suspicion for PE. Patient developed worsening respiration status with respirations in the 30s and O2 sats in the mid 80s. Critical care medicine was consulted. Patient was emergently intubated by Dr. Elvira Gutierrez and I subsequently took over patient care. When I evaluated the patient he had been sedated for the intubation and is being placed on mechanical ventilation. History was obtained by discussion with Dr. Garcia, Dr. Gutierrez and ICU nursing staff as well as documentation in the chart. 06/05: Remains sedated, orally intubated on mechanical ventilation. 06/06: Sedated, orally intubated on mechanical ventilation. Failed C Pap trial today. Got extremely anxious on lightening sedation. 06/07 No events overnight. Sedated and intubated. Afebrile. 06/08 No events overnight. Sedated with Diprivan, Fentanyl and intubated. 06/09 Patient remains sedated and intubated. Afebrile.Did not tolerate CPAP trials yesterday. 06/10 Patient is sedated with Fentanyl and Diprivan. Afebrile. Did not tolerate CPAP yesterday as he became restless, agitated and tachycardic. 06/11 Patient remains sedated and intubated. Spiked fever with Tmax 101.1 06/12 No events overnight. Sedated and intubated. Afebrile. 06/13 Patient remains intubated and sedated with Diprivan, fentanyl in addition he is on Precedex drip. T:100.0 06/14 Patient remains sedated and intubated. Afebrile. Did not tolerate CPAP trials yesterday as he became tahypenic, tachycardic and restless. 06/15: agitation persists. respiratory failure persists. severely volume overloaded. has been intubated for almost 2 weeks. may require trach. CT abd/ pelvis without overt acute disease. no other source for fungemia. 06/16: s/p trach yesterday. no significant changes. 06/17: plan for PEG today. agitation persists with significant delirium. no other significant changes. 06/18: s/p PEG placement. weaning off sedation. still failing cpap trials. 06/19: cannot wean off precedex: agitated delirium persists. also still failing cpap trials. 06/20 No events overnight. On Precedex drip for agitation. T: 100.1 last night. 06/21 No events overnight. Remains on Precedex drip. Afebrile. 06/22 Patient is sedated with Fentanyl and Precedex. Afebrile. For MRI brain today. 06/23 Patient became hypotensive overnight and had episode of desaturation with says in mid 80's. Given 500ml 5% Albumin now off sedation ( Fentanyl and Precedex held). BP is better. In addition he was given Dulcolax suppos. and Mg citrate now having BM's. KUB this morning showed diffuse mild gaseous distention of bowel. FIO2 requirements is better now on 50% FIO2 with PEEP: 10 from FIO2 75 % overnight. CXR unchanged ( Consolidation LLL and Atelectasis right lung base) . T:99.9 06/24: Remains on mechanical ventilation via tracheostomy. CT abdomen pelvis done on 06/23 revealed pneumatosis involving cecum and transverse colon suggesting ischemic colitis. Gen. surgery consulted and patient evaluated by Dr. Monroe today who recommends medical management at this time with IV fluids and continuation of antibiotics. Patient not tolerating tube feeds and has abdominal distention. Maintaining blood pressure currently. 06/25: Remains on mechanical ventilation via tracheostomy. Does not appear to be in any acute distress. Still nothing by mouth. Being followed by general surgery for pneumatosis involving cecum and transverse colon. 06/26: Remains on mechanical ventilation via tracheostomy. Awake. Denies abdominal pain this morning. Has bowel sounds. Abdominal less distended. 06/27: no improvements. afebrile. restarting tube feeds slowly. 06/28: tube feeds held overnight for high residuals. reglan iv started. tolerated t-piece yesterday for short period. 06/29: In bed, awake and alert. On mechanical ventilation via tracheostomy. Not tolerating tube feeds with high residuals from PEG tube on suction. 06/30: Awake and alert. Denies any abdominal pain. Bilious emesis overnight with about 2200 cc suctioned out via PEG tube in last 24 hours. Being scheduled for colonoscopy by GI 07/01: Became tachypneic this morning with respiratory rate in the 40s. O2 sats remained in the 90s. Had to resume sedation with Versed and patient was placed back on PRBC mode mechanical ventilation. Chest x-ray done this morning shows bibasilar infiltrates, no pneumothorax or atelectasis noted. Became hypotensive requiring Levophed 2 mics per minute. Still not tolerating tube feeds and PEG tube remains to suction. Started on PPN yesterday. PICC line placed yesterday. 07/02: No intervention per general surgery Dr. Monroe. No intervention per GI which has signed off. Instructed to possibly begin trickle feeds 07/03: Approximally 900 cc of bilious fluid from gastric contents in the last 12 hours overnight. During the day last 12 hours approximately 300 cc of bilious gastric output. Patient was started on erythromycin 200 mg every 6 hours. Plan for repeat KUB in am . Patient continues on TPN 07/04: Last 24 hours, gastric output significantly decreased. GI plans for clamping of the G-tube today with initiation of trickle feeds in a.m..Plan for possibly performing endoscopy early next week under general anesthesia/ in the OR. Patient continues to have stool output. KUB slightly shows slight improvement in small bowel dilatation. 07/05:Trickle feeds initiated early this am., Per GI. Hemoglobin stable. Patient remains sedated. 07/06: Continues to tolerate tube feeds at 10 cc/an hour. 90 cc residual and approximately 24 hours. UA resulted noted trace occult blood. Will continue to monitor, serial hemoglobin and hematocrit. Patient continues on TPN. Patient continues to fail CPAP trials. 07/07: Afebrile. Tolerating tube feeds at 10 cc/an hour. Tube feed residuals remain at 100 cc per 12 hour shift. The patient continues to fail CPAP trials. Close monitoring of hemoglobin, noted slight decrease. 07/08: Patient noted to have continued elevation in glucose levels greater than 200, Levemir increased. Patient continues to tolerate tube feeds at 10 cc/an hour, with residuals over the last 12 hours approximately 60 cc. The patient continues on prokinetic GI motility medications Reglan 10 mg every 8 hours and erythromycin 200 mg every 6 hours. Patient was noted to have 4 bowel movements over the last 12 hours. 07/09: No acute events overnight. Patient continues to be hyperglycemic. Pharmacy consulted regarding TPN mixture to add insulin 20 units . Patient received 40 mg of Lasix and diuresed approximately 4 L last evening. BMP pending. The patient continues to have minimal residuals every 12 hours via G- tube approximately 60-80 cc. The patient continues on Precedex and Versed infusions for ventilator synchrony. Hemoglobin stable 8.6. KUB showed improved small bowel dilation. 07/10: Afebrile No acute events overnight. No change in status in the last 24 hours. Palliative care team conference with family decision made for comfort care measures with ventilator withdrawal and possible transfer to Hospice this evening. 07/11: Comfort care measures/withdrawal initiated at approximately 6 PM last evening. The patient was scheduled to be transported to [facility] not to transport patient last night. Plan for transfer to [place], [place] this a.m.. The patient appears comfortable. Objective Vital Signs Date Time Temp Pulse Resp B/P (MAP) Pulse Ox O2 Delivery O2 Flow Rate FiO2 07/11/17 07:15 129 20 70/48 (55) 73 07/10/17 18:18 Room Air 07/10/17 15:57 40 07/10/17 12:00 98.2 Intake and Output 07/11/17 07/11/17 07/12/17 08:00 16:00 00:00 Intake Total 100 ml Output Total 900 ml Balance -800 ml Result Diagram: 07/10/170 07/10/17399 Imaging Last Impressions Chest X-Ray 07/04/17599 Signed Impressions: Service Date/Time: July 03:32 - CONCLUSION: Unchanged bibasilar infiltrates. Yuri Isidro Jr., MD Abdomen X-Ray 07/04/17599 Signed Impressions: Service Date/Time: July 03:35 - CONCLUSION: Dilated small bowel has improved slightly from the prior study. Yuri Isidro Jr., MD CT Angiography 07/01/17 0000 Signed Impressions: Service Date/Time: Saturday, July 01, 2017 23:54 - CONCLUSION: 1. Study limited by motion. 2. No pulmonary emboli. 3. Worsening consolidation within the right upper lobe. Infectious etiology suspected. 4. Small bilateral pleural effusions and associated passive atelectasis. This is new. 5. Emphysematous changes. 6. 6 mm left upper lobe pulmonary nodule. Yuri Isidro Jr., MD Abdomen/Pelvis CT 07/01/17 0000 Signed Impressions: Service Date/Time: Saturday, July 01, 2017 23:54 - CONCLUSION: 1. Breathing degraded study. 2. Dilatation of proximal jejunal loops which slowly taper. No obstructing mass or lesion. This could relate to a focal ileus. I cannot completely exclude a bowel obstruction. Small amount of free fluid. 3. Mild inflammatory change involving the mesentery adjacent to the ascending colon has improved somewhat. No pneumatosis involving the bowel observed. Yuri Isidro Jr., MD Brain MRI 06/22/17 0000 Signed Impressions: Service Date/Time: Thursday, June 22, 2017 12:10 - CONCLUSION: All ischemic changes, negative for acute ischemic event. Negative for parenchymal hemorrhage. Usman Pimentel MD FACR Head CT 06/04/17 0000 Signed Impressions: Service Date/Time: Sunday, June 04, 2017 18:46 - CONCLUSION: 1. No significant change compared to 06/03/17. 2. No acute infarct, acute hemorrhage , mass effect or extra-axial fluid collection. 3. Scattered old lacunar infarcts within the bilateral basal ganglia. 4. Mild periventricular and subcortical white matter small vessel ischemic changes bilaterally. 5. Old right posterior parietal infarct. 6. Chronic opacification of right mastoid air cells. Mckay Stone MD Chest CT 06/04/17 0000 Signed Impressions: Service Date/Time: Sunday, June 04, 2017 18:49 - CONCLUSION: 1. Right mid lung field and posterior bibasilar patchiness consistent with probable areas of pneumonia and/or atelectasis. Clinical correlation is recommended. 2. Tiny bilateral pleural effusions. 3. Cardiomegaly and coronary artery calcifications. 4. Minimal scattered emphysematous changes bilaterally. Mckay Stone MD Last 48 hours Impressions Abdomen X-Ray 06/24/17 0600 Signed Impressions: Service Date/Time: Saturday, June 24, 2017 03:14 - CONCLUSION: Dilated transverse colon and no definite pneumatosis intestinalis or technique, however the patient's prior CT examination was suggestive of pneumatosis. Domingo Pollack MD Chest X-Ray 06/24/17 0000 Signed Impressions: Service Date/Time: Saturday, June 24, 2017 03:08 - CONCLUSION: Bibasilar atelectasis and/or infiltrate is seen. Domingo Pollack MD Chest X-Ray 06/23/17 0000 Signed Impressions: Service Date/Time: Friday, June 23, 2017 03:45 - CONCLUSION: No significant interval change Arvind Hernandez MD CT Angiography 06/23/17 0000 Signed Impressions: Service Date/Time: Friday, June 23, 2017 20:34 - CONCLUSION: 1. No evidence of pulmonary embolus. 2. Increased patchy bilateral pulmonary consolidation with mild thin-walled cavitation of focal consolidation in the right upper lobe. This finding could be related consolidation of an area of long with emphysema involvement. 3. Mild to moderate upper lobe pulmonary parenchymal emphysema is seen. Rosas Rowell MD Abdomen/Pelvis CT 06/23/17 0000 Signed Impressions: Service Date/Time: Friday, June 23, 2017 20:34 - CONCLUSION: 1. Bowel wall pneumatosis involving the cecum and proximal transverse colon. Findings are suspicious for ischemic colitis. Surrounding inflammatory change in the intra-abdominal fat. No portal venous gas or free air identified. 2. Prominent bilateral lower lobe pulmonary consolidation. Rosas Rowell MD Abdomen X-Ray 06/23/17 0000 Signed Impressions: Service Date/Time: Friday, June 23, 2017 03:51 - CONCLUSION: Diffuse mild gaseous distention of bowel Arvind Hernandez MD Last Impressions Chest X-Ray 06/23/17 0000 Signed Impressions: Service Date/Time: Friday, June 23, 2017 03:45 - CONCLUSION: No significant interval change Arvind Hernandez MD Abdomen X-Ray 06/23/17 0000 Signed Impressions: Service Date/Time: Friday, June 23, 2017 03:51 - CONCLUSION: Diffuse mild gaseous distention of bowel Arvind Hernandez MD Brain MRI 06/22/17 0000 Signed Impressions: Service Date/Time: Thursday, June 22, 2017 12:10 - CONCLUSION: All ischemic changes, negative for acute ischemic event. Negative for parenchymal hemorrhage. Usman Pimentel MD FACR Abdomen/Pelvis CT 06/14/17 0000 Signed Impressions: Service Date/Time: Wednesday, June 14, 2017 22:32 - CONCLUSION: 1. Increasing basilar lung consolidation since chest CT from June 04. 2. Mild ileus. No bowel obstruction, free air or free fluid. 3. Left hip replacement. Advanced osteoarthritis right hip. NG in stomach. Rectal tube present. Humphrey Weston MD Head CT 06/04/17 0000 Signed Impressions: Service Date/Time: Sunday, June 04, 2017 18:46 - CONCLUSION: 1. No significant change compared to 06/03/17. 2. No acute infarct, acute hemorrhage , mass effect or extra-axial fluid collection. 3. Scattered old lacunar infarcts within the bilateral basal ganglia. 4. Mild periventricular and subcortical white matter small vessel ischemic changes bilaterally. 5. Old right posterior parietal infarct. 6. Chronic opacification of right mastoid air cells. Mckay Stone MD Chest CT 06/04/17 0000 Signed Impressions: Service Date/Time: Sunday, June 04, 2017 18:49 - CONCLUSION: 1. Right mid lung field and posterior bibasilar patchiness consistent with probable areas of pneumonia and/or atelectasis. Clinical correlation is recommended. 2. Tiny bilateral pleural effusions. 3. Cardiomegaly and coronary artery calcifications. 4. Minimal scattered emphysematous changes bilaterally. Mckay Stone MD Objective Remarks GENERAL: Patient is 61 yo gentleman with a continuous respirations on room SKIN: Warm and dry. HEAD: Normocephalic. EYES: No scleral icterus. No injection or drainage. NECK: trachea midline. No JVD. + Trach CARDIOVASCULAR: Regular rate and rhythm. RESPIRATORY: equal chest rise. Clear to auscultation GASTROINTESTINAL: Abdomen soft, protuberant non-tender, minimally distended, bowel sounds present. MUSCULOSKELETAL: No cyanosis, 3+ edema. Neuro: Patient resting comfortably, comfort care measures continued A/P Assessment and Plan Plan: Neuro: Acute Metabolic Encephalopathy Agitated Delirium - improving. Schizoaffective disorder/bipolar disorder History of alcohol abuse History of CVA MRI brain 06/22: No acute ischemic events, no hemorrhage Lactulose discontinued EEG showed mod. encephalopathy Neuro is following. Dr. Gleason CV: Uncontrolled hypertension - resolved. hyperlipidemia 2-D echo with normal LV/RV function Pulmo: Acute respiratory failure requiring mechanical ventilation - persistent. COPD exacerbation Resolving community acquired pneumonia CTA chest negative for PE. trach 06/[address] Sapp/[facility] following-Dr. Cuellar GI/liver: GERD Acute protein calorie malnutrition- severe Hyperglycemia 06/23 KUB abdomen: Mild gaseous distention of bowel Ct abd/pelvis 06/23: Pneumatosis involving cecum and transverse colon concerning for ischemia. C. Diff negative hold bowel regimen. Surgery following patient for ischemic colitis- no surgical intervention recommended at this time and they have signed off. I discussed case with Dr. Anival Madden covering for Dr. Monroe on 06/30 as patient continues to have ileus with bilious output from PEG tube and not tolerating tube feeds. hold tube feeds, keep reglan iv. restart tube feeds 06/29 after 24h of reglan. having regular bowel movements. passing flatus. Consulted GI and view of ileus for evaluation of ileus and ischemic colitis. They're planning colonoscopy for further evaluation. Started PPN on 06/30 as unable to tolerate PEG tube feeds. PICC line placed and was switched to TPN on 07/01 KUB done on 06/29 with dilated small and large bowel loops. 07/02: Discussed with Dr. Caraballo requested to restart tube feeds. Neurosurgery has signed off 07/04 Follow-up KUB -slight improvement in dilated small bowel. No pneumatosis. : Continued improvement of small bowel dilation 07/04 Erythromycin 200 mg every 6 hours IV started , patient continues on metoclopramide, PEG tube clamped for 24 hours 07/05 Trickle feeds initiated , minimal residuals. Tentative plan for possible EGD next week per GI 07/08 Levimir increased to 12 units twice a day, 20 units Insulin added to TPN mixture Renal/: ROSENDO/ CKD - resolved. Rhabdomyolysis - resolved. Acute intravascular volume overload- resolved. Metabolic alkalosis- resolving. saline lock ivf. l ID: Fungemia- resolved. Community Acquired Pneumonia- resolved. Ischemic colitis Sepsis [facility] Associated pneumonia with pseudomonas/e.coli completed full 14 day course of micagunfin for fungemia. Continue Zosyn. Micafungin added per ID CT abdomen pelvis on 06/23 shows pneumatosis involving cecum and transverse colon consistent with ischemic colitis. Patient evaluated by general surgery Dr. Monroe who at this time recommends continuing IV fluids and antibiotics and he will be available for surgery if patient develops evidence of peritonitis or worsens clinically. ID is following Sputum cx: E.coli on 06/04, sputum 06/10: normal resp tamara BC 06/14, 06/19 : NGTD, Sputum cx 06/21: E.coli, Pseudomonas Endocrine: Hyperglycemia of critical illness SSI medium scale, q4h Heme: Anemia secondary to chronic disease Monitor CBC. Prophylaxis: Pepcid/SCDs. SQ Lovenox Lines: Right sided PICC line placed 06/30 Level 2 follow up D/W VISITOR SERVICES ASSISTANT at bedside (Diana). 07/09 Palliative care team Ms. Mccray following, the patient was made alternate CODE STATUS intubation only. 07/10:Palliative Care Team conference with family. Plan for ventilator withdrawal this evening and possible transfer to hospice facility. 07/11: Comfort care measures instituted last evening, family at bedside .The patient was not transferred to [facility] last p.m.. Planned for transfer to [facility] this a.m. Physician Elvira Null MD Jul 11, 2017 08:02
--- NOTE | 2017-07-11 10:58 | HHI.DS ---
Discharge Summary Admission Date Jun 03, 2017 at 21:41 Admitting Diagnosis AMS, ROSENDO, Pneumonia, Rhabdomyolysis, Hypoxia . (1) Pneumonia ICD Code: J18.9 - Pneumonia, unspecified organism Status: Acute (2) Acute hypercapnic respiratory failure ICD Code: J96.02 - Acute respiratory failure with hypercapnia Status: Acute (3) Altered mental status ICD Code: R41.82 - Altered mental status, unspecified Status: Acute (4) Hypoxia ICD Code: R09.02 - Hypoxemia Status: Acute (5) Rhabdomyolysis ICD Code: M62.82 - Rhabdomyolysis Status: Acute (6) Acute renal failure ICD Code: N17.9 - Acute kidney failure, unspecified Brief History Mr. Reilly is a 61-year-old male with a history of COPD, hypertension, hyperlipidemia, CVA, schizoaffective disorder, bipolar disorder, GERD, renal failure, and arthritis who presents to the emergency room on 06/03/2017 from a retirement facility for evaluation of altered mental status. Upon review of the medical records from the retirement facility, it is noted he had a right lower lobe pneumonia diagnosed mid May. Head CT showed no acute infarct, acute hemorrhage, mass effect, or extra-axial fluid collection but scattered old lacunar infarcts within the bilateral basal ganglia. Mild periventricular and subcortical white matter small vessel ischemic changes bilaterally. Chest x-ray shows scattered bibasilar patchiness consistent with possible pneumonia. Patient is seen in the emergency department. He is in moderate respiratory distress with tachypnea and utilization of accessory abdominal muscles to breathe. His lung sounds are bilaterally congested and he is confused and a poor historian. His speech is slightly slurred but this is not a new finding. He tells me he does not know why he is here in the hospital. He tells me that he feels fine and has not been sick recently. He is noted to be on 5 L nasal cannula with oxygen saturation of 94% while on at the bedside. ABGs are reviewed and show pH 7.28, and PCO2 of 46. These were done at 2004 while the patient is on 2 L nasal cannula. Discussed with Dr. Mckeon. Will admit to ICU for close monitoring and supervision. CBC/BMP: 07/10/17 0400 07/10/17 0400 Significant Findings Laboratory Tests Test 07/09/17 04:00 07/09/17 10:30 07/10/17 04:00 Red Blood Count 2.31 MIL/MM3 (4.50-5.90) 2.63 MIL/MM3 (4.50-5.90) Hemoglobin 8.6 GM/DL (13.0-17.0) 7.8 GM/DL (13.0-17.0) Hematocrit 24.0 % (39.0-51.0) 23.0 % (39.0-51.0) Mean Corpuscular Volume 103.9 FL (80.0-100.0) Mean Corpuscular Hemoglobin 37.2 PG (27.0-34.0) Random Glucose 267 MG/DL (74-106) 153 MG/DL (74-106) Calcium Level 8.4 MG/DL (8.5-10.1) 8.4 MG/DL (8.5-10.1) Sodium Level 135 MEQ/L (136-145) White Blood Count 13.9 TH/MM3 (4.0-11.0) Creatinine 0.47 MG/DL (0.60-1.30) PE at Discharge GENERAL: Resting comfortably in bed. SKIN: Cool and dry, pati complexion. HEAD: Atraumatic. Normocephalic. EYES: No scleral icterus. No injection or drainage. ENT: Nose without bleeding, purulent drainage. Uvula midline. Airway patent. NECK: Trachea midline. No JVD. CARDIOVASCULAR: Regular rate and rhythm without murmurs, gallops, or rubs. RESPIRATORY: Poor air exchange. GASTROINTESTINAL: Abdomen soft, non-tender, nondistended. No guarding. MUSCULOSKELETAL: Extremities without clubbing, cyanosis, or edema. NEUROLOGICAL: Awake and alert. Equal strength, follows commands, no tongue deviation. PSYCH: Calm. Hospital Course 06/04: Mr. Reilly is a 61-year-old male with a history of COPD, hypertension, hyperlipidemia, CVA, schizoaffective disorder, bipolar disorder, GERD, renal failure, and arthritis who presented to the emergency room on 06/03/2017 from a retirement facility for evaluation of altered mental status. Upon review of the medical records from the retirement facility, it is noted he had a right lower lobe pneumonia diagnosed mid May. Head CT showed no acute infarct, acute hemorrhage, mass effect, or extra-axial fluid collection but scattered old lacunar infarcts within the bilateral basal ganglia. Mild periventricular and subcortical white matter small vessel ischemic changes bilaterally. Chest x-ray shows scattered bibasilar patchiness consistent with possible pneumonia. Per documentation : While in the ER, patient was in moderate respiratory distress with tachypnea and utilization of accessory abdominal muscles to breathe. His lung sounds are bilaterally congested and he is confused and a poor historian. His speech is slightly slurred but this is not a new finding. He was noted to be on 5 L nasal cannula with oxygen saturation of 94% in the emergency room. Patient was admitted to the ICU by the hospitalist service. He was initiated on heparin drip for suspicion of PE. He was also noted to have an elevated CPK and creatinine. His blood pressures were running high overnight. This afternoon patient developed worsening agitation and disorientation and confusion. His heparin was stopped earlier by Dr. Garcia due to low suspicion for PE. Patient developed worsening respiration status with respirations in the 30s and O2 sats in the mid 80s. Critical care medicine was consulted. Patient was emergently intubated by Dr. Elvira Gutierrez and I subsequently took over patient care. When I evaluated the patient he had been sedated for the intubation and is being placed on mechanical ventilation. History was obtained by discussion with Dr. Garcia, Dr. Gutierrez and ICU nursing staff as well as documentation in the chart. 06/05: Remains sedated, orally intubated on mechanical ventilation. 06/06: Sedated, orally intubated on mechanical ventilation. Failed C Pap trial today. Got extremely anxious on lightening sedation. 06/07 No events overnight. Sedated and intubated. Afebrile. 06/08 No events overnight. Sedated with Diprivan, Fentanyl and intubated. 06/09 Patient remains sedated and intubated. Afebrile.Did not tolerate CPAP trials yesterday. 06/10 Patient is sedated with Fentanyl and Diprivan. Afebrile. Did not tolerate CPAP yesterday as he became restless, agitated and tachycardic. 06/11 Patient remains sedated and intubated. Spiked fever with Tmax 101.1 06/12 No events overnight. Sedated and intubated. Afebrile. 06/13 Patient remains intubated and sedated with Diprivan, fentanyl in addition he is on Precedex drip. T:100.0 06/14 Patient remains sedated and intubated. Afebrile. Did not tolerate CPAP trials yesterday as he became tahypenic, tachycardic and restless. 06/15: agitation persists. respiratory failure persists. severely volume overloaded. has been intubated for almost 2 weeks. may require trach. CT abd/ pelvis without overt acute disease. no other source for fungemia. 06/16: s/p trach yesterday. no significant changes. 06/17: plan for PEG today. agitation persists with significant delirium. no other significant changes. 06/18: s/p PEG placement. weaning off sedation. still failing cpap trials. 06/19: cannot wean off precedex: agitated delirium persists. also still failing cpap trials. 06/20 No events overnight. On Precedex drip for agitation. T: 100.1 last night. 06/21 No events overnight. Remains on Precedex drip. Afebrile. 06/22 Patient is sedated with Fentanyl and Precedex. Afebrile. For MRI brain today. 06/23 Patient became hypotensive overnight and had episode of desaturation with says in mid 80's. Given 500ml 5% Albumin now off sedation ( Fentanyl and Precedex held). BP is better. In addition he was given Dulcolax suppos. and Mg citrate now having BM's. KUB this morning showed diffuse mild gaseous distention of bowel. FIO2 requirements is better now on 50% FIO2 with PEEP: 10 from FIO2 75 % overnight. CXR unchanged ( Consolidation LLL and Atelectasis right lung base) . T:99.9 06/24: Remains on mechanical ventilation via tracheostomy. CT abdomen pelvis done on 06/23 revealed pneumatosis involving cecum and transverse colon suggesting ischemic colitis. Gen. surgery consulted and patient evaluated by Dr. Monroe today who recommends medical management at this time with IV fluids and continuation of antibiotics. Patient not tolerating tube feeds and has abdominal distention. Maintaining blood pressure currently. 06/25: Remains on mechanical ventilation via tracheostomy. Does not appear to be in any acute distress. Still nothing by mouth. Being followed by general surgery for pneumatosis involving cecum and transverse colon. 06/26: Remains on mechanical ventilation via tracheostomy. Awake. Denies abdominal pain this morning. Has bowel sounds. Abdominal less distended. 06/27: no improvements. afebrile. restarting tube feeds slowly. 06/28: tube feeds held overnight for high residuals. reglan iv started. tolerated t-piece yesterday for short period. 06/29: In bed, awake and alert. On mechanical ventilation via tracheostomy. Not tolerating tube feeds with high residuals from PEG tube on suction. 06/30: Awake and alert. Denies any abdominal pain. Bilious emesis overnight with about 2200 cc suctioned out via PEG tube in last 24 hours. Being scheduled for colonoscopy by GI 07/01: Became tachypneic this morning with respiratory rate in the 40s. O2 sats remained in the 90s. Had to resume sedation with Versed and patient was placed back on PRBC mode mechanical ventilation. Chest x-ray done this morning shows bibasilar infiltrates, no pneumothorax or atelectasis noted. Became hypotensive requiring Levophed 2 mics per minute. Still not tolerating tube feeds and PEG tube remains to suction. Started on PPN yesterday. PICC line placed yesterday. 07/02: No intervention per general surgery Dr. Monroe. No intervention per GI which has signed off. Instructed to possibly begin trickle feeds 07/03: Approximally 900 cc of bilious fluid from gastric contents in the last 12 hours overnight. During the day last 12 hours approximately 300 cc of bilious gastric output. Patient was started on erythromycin 200 mg every 6 hours. Plan for repeat KUB in am . Patient continues on TPN 07/04: Last 24 hours, gastric output significantly decreased. GI plans for clamping of the G-tube today with initiation of trickle feeds in a.m..Plan for possibly performing endoscopy early next week under general anesthesia/ in the OR. Patient continues to have stool output. KUB slightly shows slight improvement in small bowel dilatation. 07/05:Trickle feeds initiated early this am., Per GI. Hemoglobin stable. Patient remains sedated. 07/06: Continues to tolerate tube feeds at 10 cc/an hour. 90 cc residual and approximately 24 hours. UA resulted noted trace occult blood. Will continue to monitor, serial hemoglobin and hematocrit. Patient continues on TPN. Patient continues to fail CPAP trials. 07/07: Afebrile. Tolerating tube feeds at 10 cc/an hour. Tube feed residuals remain at 100 cc per 12 hour shift. The patient continues to fail CPAP trials. Close monitoring of hemoglobin, noted slight decrease. 07/08: Patient noted to have continued elevation in glucose levels greater than 200, Levemir increased. Patient continues to tolerate tube feeds at 10 cc/an hour, with residuals over the last 12 hours approximately 60 cc. The patient continues on prokinetic GI motility medications Reglan 10 mg every 8 hours and erythromycin 200 mg every 6 hours. Patient was noted to have 4 bowel movements over the last 12 hours. 07/09: No acute events overnight. Patient continues to be hyperglycemic. Pharmacy consulted regarding TPN mixture to add insulin 20 units . Patient received 40 mg of Lasix and diuresed approximately 4 L last evening. BMP pending. The patient continues to have minimal residuals every 12 hours via G- tube approximately 60-80 cc. The patient continues on Precedex and Versed infusions for ventilator synchrony. Hemoglobin stable 8.6. KUB showed improved small bowel dilation. 07/10: Afebrile No acute events overnight. No change in status in the last 24 hours. Palliative care team conference with family decision made for comfort care measures with ventilator withdrawal and possible transfer to Hospice this evening. 07/11: Comfort care measures/withdrawal initiated at approximately 6 PM last evening. The patient was scheduled to be transported to [facility] not to transport patient last night. Plan for transfer to [place], [place] this a.m.. The patient appears comfortable. The patient was discharged to hospice this morning at 10:56 AM. Discharge Instructions Additional Information CCT 15 minutes Elvira Gutierrez MD Jul 11, 2017 10:58
== END 2017-07-11 11:05 | disposition hospice, inpatient (51) | DRG 4 ==
LOC: NEPE 19:34 → NEDA 21:41 → HIMN 06-04 02:20
PROVIDERS: ADMIT Internal Medicine; ATTEND Internal Medicine Critical Care Medicine
PROC: 5A09357 Assistance with Respiratory Ventilation, Less than 24 Consecutive Hours, Continuous Positive Airway Pressure (ICD-10-PCS; 2017-06-03)
PROC: 0BH18EZ Insertion of Endotracheal Airway into Trachea, Via Natural or Artificial Opening Endoscopic (ICD-10-PCS; 2017-06-04)
PROC: 5A1955Z Respiratory Ventilation, Greater than 96 Consecutive Hours (ICD-10-PCS; 2017-06-04)
PROC: 0B113F4 Bypass Trachea to Cutaneous with Tracheostomy Device, Percutaneous Approach (ICD-10-PCS; principal; 2017-06-15)
PROC: 5A1955Z Respiratory Ventilation, Greater than 96 Consecutive Hours (ICD-10-PCS; 2017-06-15)
PROC: 0BC78ZZ Extirpation of Matter from Left Main Bronchus, Via Natural or Artificial Opening Endoscopic (ICD-10-PCS; 2017-06-15)
PROC: 0DH63UZ Insertion of Feeding Device into Stomach, Percutaneous Approach (ICD-10-PCS; 2017-06-17)
PROC: 02HV33Z Insertion of Infusion Device into Superior Vena Cava, Percutaneous Approach (ICD-10-PCS; 2017-06-30)
DX: J96.01 Acute respiratory failure with hypoxia (principal); J15.5 Pneumonia due to Escherichia coli; E43 Unspecified severe protein-calorie malnutrition; J15.1 Pneumonia due to Pseudomonas; G93.41 Metabolic encephalopathy; N17.9 Acute kidney failure, unspecified; K55.9 Vascular disorder of intestine, unspecified; B37.7 Candidal sepsis; M62.82 Rhabdomyolysis; F05 Delirium due to known physiological condition; J44.0 Chronic obstructive pulmonary disease with (acute) lower respiratory infection; J44.1 Chronic obstructive pulmonary disease with (acute) exacerbation; I16.1 Hypertensive emergency; E87.3 Alkalosis; K56.7 Ileus, unspecified; F25.9 Schizoaffective disorder, unspecified; K21.9 Gastro-esophageal reflux disease without esophagitis; F31.9 Bipolar disorder, unspecified; M19.90 Unspecified osteoarthritis, unspecified site; R19.7 Diarrhea, unspecified; F17.210 Nicotine dependence, cigarettes, uncomplicated; E87.70 Fluid overload, unspecified; E78.5 Hyperlipidemia, unspecified; R73.9 Hyperglycemia, unspecified; D63.8 Anemia in other chronic diseases classified elsewhere; K22.5 Diverticulum of esophagus, acquired; K63.89 Other specified diseases of intestine; Z51.5 Encounter for palliative care; J96.02 Acute respiratory failure with hypercapnia; Z86.73 Personal history of transient ischemic attack (TIA), and cerebral infarction without residual deficits; Z88.5 Allergy status to narcotic agent; Z88.8 Allergy status to other drugs, medicaments and biological substances
CPT/HCPCS: 31500; 31600; 31624; 36569; 36600; 70450; 70551; 71010; 71045; 71250; 71275; 74000; 74018; 74177; 76937; 80048; 80053; 80076; 80202; 80307; 81001; 81003; 82140; 82550; 82552; 82570; 82805; 82948; 83605; 83735; 83880; 83930; 83935; 84100; 84132; 84155; 84300; 84443; 84478; 84484; 85007; 85025; 85027; 85384; 85610; 85730; 86403; 87040; 87070; 87077; 87086; 87186; 87205; 87493; 87641; 87804; 93005; 93306; 93308; 94002; 94003; 94640; 94664; 95819; 96361; 96374; 96375; A7521; J0330; J0360; J0456; J0610; J0692; J0696; J1120; J1170; J1630; J1642; J1644; J1650; J1815; J1940; J1956; J1980; J2060; J2248; J2250; J2405; J2543; J2765; J2920; J2930; J3010; J3370; J3475; J3480; J3486; J7030; J7040; J7042; J7050; J7120; J7512; P9045; P9047; Q9963; Q9967